=== PATIENT | female | born 1935 | race Caucasian/White ===

== ENCOUNTER 2016-04-28 11:50 | Day surgery (SDC) | payer MEDICARE, MEDICAID ==
[~2016-04-28 11:50] MED LIST: ACET1TAB23 PO; ASPI-612 PO; CALC-15 PO; CLON0.3T PO; CLOP75TA2 PO; DEXL60CA3 PO; DICL100G3 TP; FLUT1DIS28 IH; IV LACTATED RINGERS SOLUTION 1,000 ML BAG MC ONE; LIDOCAINE HCL 1% 20 ML VIAL MC ONE; LORA10TA50 PO; MECL-118 PO; METO-295 PO; MONT10TA25 PO; POLY119P8 PO; PROP20TA7 PO; PROPOFOL 200 MG/20 ML BOTTLE IV ONE; QUET25TA PO; SIMV10TA2 PO; SPIR50TA3 PO; SUCR1ORA PO; VALS160T2 PO; ZOLP5TAB2 PO
[2016-04-28 12:30] LABS: *BILIRUBIN,URIN NEGATIVE (NEGATIVE); *BLOOD, URINE Trace-lysed (NEGATIVE); *CLARITY,URINE CLEAR (CLEAR); *COLOR,URINE YELLOW (YELLOW); *KETONES,URINE NEGATIVE (NEGATIVE); *PROTEIN,URINE NEGATIVE (NEGATIVE); *UROBILINOGEN,URINE 0.2 E.U./dl (NORMAL); LEUKOCYTE ESTERASE ,URINE 1+ (NEGATIVE); NITRITE, URINE NEGATIVE (NEGATIVE); UGLUCOSE NEGATIVE (NEGATIVE)
[2016-04-28 12:36] LABS: ALBUMIN 3.7 g/dL (3.4-5.0); BILIRUBIN,TOTAL 0.3 mg/dL (0.2-1.0); CALCIUM 8.6 mg/dL (8.5-10.1); CREATININE 1.1 mg/dL (0.6-1.3); POTASSIUM 4.7 mmol/L (3.5-5.1); TOTAL PROTEIN, SERUM 7.1 g/dL (6.4-8.2)
[2016-04-28 12:37] LABS: BACTERIA,URINE NONE SEEN /HPF (NONE SEEN); RBC,URINE 0-3 /HPF (0-3); SQUAMOUS EPITHELIAL CELL,UR FEW /HPF (NONE SEEN); WBC,URINE 0-3 /HPF (0-3)
[2016-04-28 12:43] LABS: BASOPHILS % (AUTO) 0.7 % (0.0-2.0); EOSINOPHILS # (AUTO) 0.1 K/uL (0.0-0.7); EOSINOPHILS % (AUTO) 0.9 % (0.0-7.0); HEMATOCRIT 35.1 % (37.0-47.0); HEMOGLOBIN 11.6 g/dL (12.0-16.0); LYMPHOCYTES # (AUTO) 2.2 K/uL (0.8-4.8); LYMPHOCYTES % (AUTO) 33.5 % (20.5-51.5); MEAN CORPUSCULAR HGB CONC 33 g/dL (32.0-37.0); MEAN CORPUSCULAR VOLUME 81.5 fL (81.0-99.0); MONOCYTES # (AUTO) 0.5 K/uL (0.1-1.30); MONOCYTES % (AUTO) 7.6 % (0.0-11.0); NEUTROPHILS # (AUTO) 3.7 K/uL (1.8-8.9); NEUTROPHILS % (AUTO) 57.3 % (38.5-71.5); PLATELET COUNT (AUTO) 393 K/uL (150-450); RED BLOOD CELL COUNT(AUTO) 4.31 MIL/uL (4.20-5.40); RED CELL DISTRIBUTION WIDTH 13.8 % (11.5-14.5); WHITE BLOOD COUNT (AUTO) 6.5 K/uL (4.0-11.2)
== END 2016-04-28 15:35 | disposition home or self-care (01) ==
LOC: DS 11:50
PROVIDERS: ATTEND Internal Medicine Gastroenterology
DX: K22.70 Barrett's esophagus without dysplasia (principal); K44.9 Diaphragmatic hernia without obstruction or gangrene; K21.0 Gastro-esophageal reflux disease with esophagitis; J45.909 Unspecified asthma, uncomplicated; E11.9 Type 2 diabetes mellitus without complications; I10 Essential (primary) hypertension; E78.5 Hyperlipidemia, unspecified; J44.9 Chronic obstructive pulmonary disease, unspecified; D64.9 Anemia, unspecified
CPT/HCPCS: 36415; 43235; 85025; 85730; 93005; A4217; A4663; J3490; J7120

== ENCOUNTER 2016-07-09 15:05 | Inpatient (IN) | payer MEDICARE, MEDICAID ==
[~2016-07-09] VITALS: Ht 142.2 cm; Wt 65.3 kg
[~2016-07-09 15:05] MED LIST changes: -IV LACTATED RINGERS SOLUTION 1,000 ML BAG MC ONE; -LIDOCAINE HCL 1% 20 ML VIAL MC ONE; -PROPOFOL 200 MG/20 ML BOTTLE IV ONE
[2016-07-09 15:57] LABS: BASOPHILS # (AUTO) 0.1 K/uL (0.0-8.0); BASOPHILS % (AUTO) 0.8 % (0.0-2.0); EOSINOPHILS # (AUTO) 0.1 K/uL (0.0-0.7); EOSINOPHILS % (AUTO) 0.9 % (0.0-7.0); HEMATOCRIT 35.1 % (37-47); HEMOGLOBIN 12.1 G/DL (12.0-16.0); LYMPHOCYTES # (AUTO) 1.6 K/UL (0.8-4.8); LYMPHOCYTES % (AUTO) 16.9 % (20.5-51.5); MEAN CORPUSCULAR HEMOGLOBIN 29.1 UUG (27.0-31.0); MEAN CORPUSCULAR HGB CONC 35 g/dL (32.0-37.0); MEAN CORPUSCULAR VOLUME 84.4 FL (81.0-99.0); MONOCYTES # (AUTO) 0.7 K/UL (0.1-1.30); MONOCYTES % (AUTO) 7.3 % (0.0-11.0); NEUTROPHILS % (AUTO) 74.1 % (38.5-71.5); PLATELET COUNT (AUTO) 394 K/UL (150-450); RED BLOOD CELL COUNT(AUTO) 4.16 MIL/UL (4.2-5.4); WHITE BLOOD COUNT (AUTO) 9.5 K/UL (4.0-11.2)
[2016-07-09 16:15] LABS: ALANINE AMINOTRANSFERASE 18 U/L (14-59); ALKALINE PHOSPHATASE 117 U/L (50-136); ASPARTATE AMINOTRANSFERASE 16 U/L (15-37); BILIRUBIN,DIRECT < 0.1 mg/dL (0.0-0.2); BILIRUBIN,TOTAL 0.2 mg/dL (0.2-1.0); CARBON DIOXIDE 25 mmol/L (21-32); CHLORIDE 97 mmol/L (98-107); CREATININE 1.6 mg/dL (0.6-1.3); GLUCOSE 171 mg/dL (74-106); POTASSIUM 5.3 mmol/L (3.5-5.1); TOTAL PROTEIN, SERUM 6.9 g/dL (6.4-8.2); UREA NITROGEN, BLOOD 34 mg/dL (7-18)
[2016-07-09] MEDS ORDERED: FUROSEMIDE 20 MG/2 ML VIAL IV ONE (16:30)
[2016-07-09] MEDS ORDERED: FUROSEMIDE 40 MG/4 ML VIAL ONE (16:38)
[2016-07-09 17:47] VITALS: BP 114/63
--- NOTE | 2016-07-09 17:56 | NUR ---
ADMISSION PROTOCOL FOLLOWED, PT RESTING IN BED, IN NO ACUTE DISTRESS, VS STABLE PAIN 5/10 HEADACHE, IV INTACT. ORIENTED TO ROOM AND CALL LIGHT IN REACH. DR LOBO CALLED, AWAITING ORDERS.
[2016-07-09 19:00] VITALS: BP 105/56
--- NOTE | 2016-07-09 19:45 | NUR ---
RECEIVED PT IN BED AWAKE, ALERT AND ORIENTED, DANISH SPEAKING. ABLE TO MAKE NEEDS KNOWN. NO ACUTE DISTRESS NOTED. NO C/O PAIN AT THIS TIME. DENIES NAUSEA/VOMITING AT THIS MOMENT. MADE COMFORTABLE. EVEN AND NONLABORED BREATHING OBSERVED. IV INTACT AND PATENT. ALL NEEDS ATTENDED AT THIS TIME. WILL CONTINUE TO MONITOR.
--- NOTE | 2016-07-09 21:00 | NUR ---
CALLED MD PENNY, PER TO CONTINUE ALL HOME MEDS. FAXED TO PHARMACY. WILL CONTINUE TO MONITOR. Addendum: 07/09/16 at 2234 by YOHANA PRETTY RN ACTUALLY, MED RECON WAS FAXED TO PHARMACY.
[2016-07-09] MEDS ORDERED: TRAZODONE 100 MG TABLET PO SCH (22:00)
--- NOTE | 2016-07-09 22:05 | NUR ---
TRAZODONE 75MG HS GIVEN PER PT'S REQUEST PRESCRIBED. WILL CONTINUE TO MONITOR.
[2016-07-09] MEDS ORDERED: TRAZODONE 100 MG TABLET ONE (22:12)
[2016-07-10 00:23] VITALS: BP 120/62
[2016-07-10] MEDS ORDERED: TRAZ-144 PO (00:45)
[2016-07-10] MEDS ORDERED: QUET50TA PO (00:50)
[2016-07-10 04:00] VITALS: BP 137/60
[2016-07-10 06:00] LABS: *BILIRUBIN,URIN NEGATIVE (NEGATIVE); *BLOOD, URINE NEGATIVE (NEGATIVE); *CLARITY,URINE CLEAR (CLEAR); *COLOR,URINE YELLOW (YELLOW); *KETONES,URINE NEGATIVE (NEGATIVE); *PROTEIN,URINE NEGATIVE (NEGATIVE); *UROBILINOGEN,URINE 0.2 E.U./dl (NORMAL); LEUKOCYTE ESTERASE ,URINE NEGATIVE (NEGATIVE); NITRITE, URINE NEGATIVE (NEGATIVE); PH,URINE 5.5 (5.0-8.0); UGLUCOSE NEGATIVE (NEGATIVE)
--- NOTE | 2016-07-10 06:07 | NUR ---
PT IN BED RESTING WITH EYES CLOSED, EASILY AWAKENS TO NAME. SLEPT INTERMITTENTLY PER SHIFT. NO ACUTE DISTRESS NOTED. C/O SLIGHT DIZZINESS BUT STATES IS GETTING BETTER, NOT REQUESTING MED AT THIS TIME. NO C/O PAIN. VS STABLE. BRP WITH ASSIST. NO SOB DENIES CHEST PAIN. ALL SAFETY NEEDS MET. ON TELE: SINUS RAPHAEL ON THE MONITOR, HR-[id number]. CALL LIGHT IN REACH. SAFETY AND COMFORT MEASURES PROVIDED. CONTINUE MONITORING.
[2016-07-10 06:23] LABS: BACTERIA,URINE NONE SEEN /HPF (NONE SEEN); RBC,URINE NONE SEEN /HPF (0-3); SQUAMOUS EPITHELIAL CELL,UR FEW /HPF (NONE SEEN); WBC,URINE NONE SEEN /HPF (0-3)
[2016-07-10 07:58] LABS: CARBON DIOXIDE 29 mmol/L (21-32); CHLORIDE 99 mmol/L (98-107); CREATININE 1.5 mg/dL (0.6-1.3); GLUCOSE 125 mg/dL (74-106); POTASSIUM 4.9 mmol/L (3.5-5.1); UREA NITROGEN, BLOOD 40 mg/dL (7-18)
[2016-07-10 08:00] LABS: BASOPHILS % (AUTO) 0.3 % (0.0-2.0); EOSINOPHILS # (AUTO) 0.2 K/uL (0.0-0.7); EOSINOPHILS % (AUTO) 2.8 % (0.0-7.0); HEMATOCRIT 37.2 % (37-47); HEMOGLOBIN 12.9 G/DL (12.0-16.0); LYMPHOCYTES # (AUTO) 2.4 K/UL (0.8-4.8); LYMPHOCYTES % (AUTO) 30.8 % (20.5-51.5); MEAN CORPUSCULAR HEMOGLOBIN 29.3 UUG (27.0-31.0); MEAN CORPUSCULAR HGB CONC 35 g/dL (32.0-37.0); MEAN CORPUSCULAR VOLUME 84.8 FL (81.0-99.0); MONOCYTES # (AUTO) 0.8 K/UL (0.1-1.30); MONOCYTES % (AUTO) 10.6 % (0.0-11.0); NEUTROPHILS # (AUTO) 4.3 K/UL (1.8-8.9); NEUTROPHILS % (AUTO) 55.5 % (38.5-71.5); PLATELET COUNT (AUTO) 400 K/UL (150-450); RED BLOOD CELL COUNT(AUTO) 4.39 MIL/UL (4.2-5.4); WHITE BLOOD COUNT (AUTO) 7.7 K/UL (4.0-11.2)
[2016-07-10] MEDS ORDERED: ERGO500047 PO (09:46)
[2016-07-10] MEDS ORDERED: CLON0.3P TD (09:47)
[2016-07-10] MEDS ORDERED: DICL75TA5 PO (09:48)
[2016-07-10] MEDS ORDERED: METO-295 PO (09:56)
[2016-07-10] MEDS: VALSARTAN 160 MG TABLET PO SCH ×2 (11:45→20:35)
[2016-07-10 12:07] VITALS: BP 101/51
[2016-07-10] MEDS: CLONIDINE HCL 0.3 MG TABLET PO SCH ×2 (13:00→17:00)
[2016-07-10] MEDS: SPIRONOLACTONE 50 MG TABLET PO SCH (14:28)
[2016-07-10] MEDS: ASPIRIN 325 MG TABLET PO SCH (14:31)
[2016-07-10] MEDS: MECLIZINE HCL 25 MG TABLET PO SCH ×3 (14:32→20:32)
[2016-07-10] MEDS: CALCIUM CARB/VITAMIN D 500MG-200UNITS TABLET PO SCH ×2 (14:32→19:01)
[2016-07-10] MEDS: DICLOFENAC 75 MG TABLET.DR PO SCH ×2 (14:32→20:28)
[2016-07-10] MEDS: METOCLOPRAMIDE HCL 10 MG TABLET PO SCH ×2 (14:33→19:01)
[2016-07-10] MEDS: FLUTICASONE/SALMETEROL 250/50 INHALER IH SCH ×2 (14:34→20:39)
[2016-07-10] MEDS: QUETIAPINE FUMARATE 25 MG TABLET PO SCH (14:36)
[2016-07-10 17:30] VITALS: BP 125/69
[2016-07-10] MEDS: SUCRALFATE 1 G/10 ML LIQUID UDC PO SCH (19:00)
[2016-07-10 20:19] VITALS: BP_SYST 87; BP_SYST 98; BP_DIAS 42; BP_DIAS 62
[2016-07-10] MEDS: MONTELUKAST SODIUM 10 MG TABLET PO SCH (20:31)
[2016-07-10] MEDS: TRAZODONE 50 MG TABLET PO SCH (20:31)
[2016-07-10] MEDS: SIMVASTATIN 10 MG TABLET PO SCH (20:31)
[2016-07-10] MEDS ORDERED: TRAZODONE 50 MG TABLET PO SCH (21:00)
--- NOTE | 2016-07-10 23:15 | NUR ---
HANDS OFF REPORT FROM DALILA CASAS.
--- NOTE | 2016-07-10 23:29 | NUR ---
RECEIVED PT IN BED, ABOUT TO USE THE BEDSIDE COMMODE. IN NO ACUTE SIGNS OF DISTRESS, BURKINAN SPEAKING WITH SOME KAZAKH. SAFETY OBSERVED.
[2016-07-11 00:07] VITALS: BP 149/70
[2016-07-11 04:00] VITALS: BP 133/79
[2016-07-11] MEDS: PANTOPRAZOLE SODIUM 40 MG TABLET.DR PO SCH (06:20)
--- NOTE | 2016-07-11 06:25 | NUR ---
ON TELE MONITOR. PT HAD EPISODE OF VTACH, 6 BEATS WITH SOME PVC'S. SINUS RHYTHM AT THIS TIME. RESTING IN BED. NO ACUTE SIGNS OF DISTRESS. PT USED BEDSIDE COMMODE. ALL CARE RENDERED. SAFETY MAINTAIN. CALL LIGHT WITHIN REACH.
[2016-07-11] MEDS: SUCRALFATE 1 G/10 ML LIQUID UDC PO SCH ×3 (06:40→17:26)
[2016-07-11] MEDS ORDERED: HOME MED MISCELLANEOUS PO SCH (09:00)
[2016-07-11] MEDS: ASPIRIN 325 MG TABLET PO SCH (09:08)
[2016-07-11] MEDS: METOCLOPRAMIDE HCL 10 MG TABLET PO SCH ×3 (09:09→17:28)
[2016-07-11] MEDS: MECLIZINE HCL 25 MG TABLET PO SCH ×4 (09:09→20:36)
[2016-07-11] MEDS: QUETIAPINE FUMARATE 25 MG TABLET PO SCH (09:09)
[2016-07-11] MEDS: SPIRONOLACTONE 50 MG TABLET PO SCH (09:09)
[2016-07-11] MEDS: FLUTICASONE/SALMETEROL 250/50 INHALER IH SCH ×2 (09:09→20:35)
[2016-07-11] MEDS: VALSARTAN 160 MG TABLET PO SCH (09:09)
[2016-07-11] MEDS: DICLOFENAC 75 MG TABLET.DR PO SCH ×2 (09:09→20:36)
[2016-07-11] MEDS: CALCIUM CARB/VITAMIN D 500MG-200UNITS TABLET PO SCH ×2 (09:09→17:28)
[2016-07-11] MEDS: CLONIDINE HCL 0.3 MG TABLET PO SCH ×3 (09:10→18:21)
[2016-07-11 12:06] VITALS: BP 142/77
[2016-07-11] MEDS ORDERED: ALBUTEROL SULFATE 2.5 MG/3 ML NEBU NEB PRN (13:30)
[2016-07-11 13:35] LABS: BASOPHILS % (AUTO) 0.5 % (0.0-2.0); EOSINOPHILS # (AUTO) 0.1 K/uL (0.0-0.7); EOSINOPHILS % (AUTO) 1.5 % (0.0-7.0); HEMATOCRIT 35.5 % (37-47); HEMOGLOBIN 12.2 G/DL (12.0-16.0); LYMPHOCYTES # (AUTO) 1.1 K/UL (0.8-4.8); LYMPHOCYTES % (AUTO) 12.9 % (20.5-51.5); MEAN CORPUSCULAR HEMOGLOBIN 28.4 UUG (27.0-31.0); MEAN CORPUSCULAR HGB CONC 34 g/dL (32.0-37.0); MEAN CORPUSCULAR VOLUME 82.7 FL (81.0-99.0); MONOCYTES # (AUTO) 0.5 K/UL (0.1-1.30); MONOCYTES % (AUTO) 5.9 % (0.0-11.0); NEUTROPHILS # (AUTO) 6.6 K/UL (1.8-8.9); NEUTROPHILS % (AUTO) 79.2 % (38.5-71.5); PLATELET COUNT (AUTO) 401 K/UL (150-450); RED BLOOD CELL COUNT(AUTO) 4.29 MIL/UL (4.2-5.4); WHITE BLOOD COUNT (AUTO) 8.3 K/UL (4.0-11.2)
[2016-07-11 13:44] LABS: ALKALINE PHOSPHATASE 113 U/L (50-136); ASPARTATE AMINOTRANSFERASE 17 U/L (15-37); BILIRUBIN,TOTAL 0.6 mg/dL (0.2-1.0); CARBON DIOXIDE 24 mmol/L (21-32); CHLORIDE 94 mmol/L (98-107); CREATININE 2.1 mg/dL (0.6-1.3); GLUCOSE 225 mg/dL (74-106); PHOSPHOROUS 4.7 mg/dL (2.5-4.9); UREA NITROGEN, BLOOD 49 mg/dL (7-18)
[2016-07-11 13:55] LABS: ALANINE AMINOTRANSFERASE < 6 U/L (14-59)
--- NOTE | 2016-07-11 15:26 | NUR ---
CBC AND CMP RESULTS REPORTED TO DR. CHIRINOS. SEE NEW ORDERS.
[2016-07-11] MEDS ORDERED: DEXTROSE 50% 50 ML DISP.SYRIN IV PRN (15:30)
[2016-07-11 15:31] VITALS: BP 96/54
[2016-07-11] MEDS: IV NS 1000 ML 1,000 ML IV PRN (15:40)
[2016-07-11] MEDS: BLOOD SUGAR DIAGNOSTIC 1 EACH STRIP VI SCH ×2 (17:21→20:55)
[2016-07-11] MEDS: INSULIN REGULAR, HUMAN 300 UNIT/3 ML VIAL SQ PRN (17:28)
[2016-07-11] MEDS: ONDANSETRON 4 MG/2 ML VIAL IV PRN (17:32)
--- NOTE | 2016-07-11 18:50 | NUR ---
END OF SHIFT NOTE: PATIENT IN NO ACUTE DISTRESS THROUGHOUT SHIFT. DENIED PAIN. NO N/V AT THIS TIME. RESPIRATIONS EVEN AND UNLABORED. PATIENT CONTINENT OF B+B UN BEDSIDE COMMODE WITH ASSIST. NEEDS MET BY STAFF AND CALL LIGHT AT REACH.
[2016-07-11 19:00] VITALS: BP 113/56
--- NOTE | 2016-07-11 19:00 | NUR ---
PATIENT ALERT SPEAK TUNISIAN NO SOB NO CHEST PAIN NOTED, NO COUGHING NO CONGESTION NOTED, ASSISTED WITH TOILETING ON BEDSIDE COMMODE, NO S/S OF DISTRESS.
[2016-07-11] MEDS: SIMVASTATIN 10 MG TABLET PO SCH (20:36)
[2016-07-11] MEDS: MONTELUKAST SODIUM 10 MG TABLET PO SCH (20:36)
[2016-07-11] MEDS: TRAZODONE 50 MG TABLET PO SCH (20:37)
[2016-07-12 00:29] VITALS: BP 141/66
--- NOTE | 2016-07-12 02:35 | NUR ---
PATIENT COMPLAIN OF ABDOMINAL PAIN/ CONSTIPATION, CALLED DR HAWKINS WITH ORDER.
[2016-07-12] MEDS ORDERED: LACTULOSE 20 G/30 ML LIQUID UDC PO PRN (02:45)
[2016-07-12] MEDS ORDERED: LACTULOSE 20 G/30 ML LIQUID UDC ONE (02:46)
--- NOTE | 2016-07-12 03:02 | NUR ---
LACTULOSE MEDICATION IS EFFECTIVE PATIENT HAD LARGE BOWEL MOVEMENT. NO FURTHER COMPLAIN OF ABDOMINAL PAIN, ABDOMEN SOFT.
[2016-07-12 04:00] VITALS: BP 126/72
[2016-07-12] MEDS: IV NS 1000 ML 1,000 ML IV PRN ×2 (04:37→20:54)
[2016-07-12] MEDS: PANTOPRAZOLE SODIUM 40 MG TABLET.DR PO SCH (06:00)
[2016-07-12] MEDS: SUCRALFATE 1 G/10 ML LIQUID UDC PO SCH ×3 (06:00→16:51)
[2016-07-12] MEDS: BLOOD SUGAR DIAGNOSTIC 1 EACH STRIP VI SCH ×4 (06:00→20:54)
[2016-07-12] MEDS: INSULIN REGULAR, HUMAN 300 UNIT/3 ML VIAL SQ PRN ×3 (06:03→16:53)
--- NOTE | 2016-07-12 07:06 | NUR ---
PATIENT SLEPT MOST OF THE NIGHT, PATIENT ON TELE SINUS RYTHM NO SOB NO CHEST PAIN NOTED, HAD X1BM AGAIN, NO DISTRESS.
--- NOTE | 2016-07-12 07:10 | NUR ---
PATIENT RECEIVED IN ROOM RESTING IN BED. ALERT AWAKE IN NO ACUTE DISTRESS. DENIED PAIN AT THIS TIME. ST ON SALES ADMINISTRATION SPECIALIST HR. 100-109. RESPIRATIONS EVEN AND UNLABORED. CALL LIGHT AT REACH.
--- NOTE | 2016-07-12 07:43 | NUR ---
PATIENT'S HR UP TO 140s WHEN ASSISTED UP TO BESIDE COMMODE, ASYMPTOMATIC, AND COMES BACK TO 107 WHEN IN BED.
[2016-07-12 08:31] LABS: ALANINE AMINOTRANSFERASE 15 U/L (14-59); ALKALINE PHOSPHATASE 120 U/L (50-136); ASPARTATE AMINOTRANSFERASE 17 U/L (15-37); BILIRUBIN,TOTAL 0.6 mg/dL (0.2-1.0); CARBON DIOXIDE 21 mmol/L (21-32); CHLORIDE 95 mmol/L (98-107); GLUCOSE 142 mg/dL (74-106); MAGNESIUM 2.8 mg/dL (1.8-2.4); PHOSPHOROUS 4.8 mg/dL (2.5-4.9); POTASSIUM 5.4 mmol/L (3.5-5.1); TOTAL PROTEIN, SERUM 6.4 g/dL (6.4-8.2); UREA NITROGEN, BLOOD 45 mg/dL (7-18)
[2016-07-12 08:46] LABS: EOSINOPHILS # (AUTO) 0.1 K/uL (0.0-0.7); EOSINOPHILS % (AUTO) 0.4 % (0.0-7.0); HEMATOCRIT 36.2 % (37-47); HEMOGLOBIN 12.4 G/DL (12.0-16.0); LYMPHOCYTES # (AUTO) 0.9 K/UL (0.8-4.8); LYMPHOCYTES % (AUTO) 4.6 % (20.5-51.5); MEAN CORPUSCULAR HEMOGLOBIN 28.7 UUG (27.0-31.0); MEAN CORPUSCULAR HGB CONC 34 g/dL (32.0-37.0); MEAN CORPUSCULAR VOLUME 83.7 FL (81.0-99.0); MONOCYTES % (AUTO) 10.5 % (0.0-11.0); NEUTROPHILS # (AUTO) 15.9 K/UL (1.8-8.9); NEUTROPHILS % (AUTO) 84.5 % (38.5-71.5); PLATELET COUNT (AUTO) 394 K/UL (150-450); RED BLOOD CELL COUNT(AUTO) 4.32 MIL/UL (4.2-5.4); WHITE BLOOD COUNT (AUTO) 18.9 K/UL (4.0-11.2)
[2016-07-12 09:25] LABS: BAND % (MANUAL) 16 % (0-10); EOSINOPHILS % (MANUAL) 1 % (0-8); LYMPHOCYTES % (MANUAL) 5 % (20-40); MONOCYTES % (MANUAL) 9 % (2-10); NEUTROPHILS % (MANUAL) 69 % (42-75)
[2016-07-12] MEDS: SPIRONOLACTONE 50 MG TABLET PO SCH (09:55)
[2016-07-12] MEDS: METOCLOPRAMIDE HCL 10 MG TABLET PO SCH (09:55)
[2016-07-12] MEDS: QUETIAPINE FUMARATE 25 MG TABLET PO SCH (09:55)
[2016-07-12] MEDS: DICLOFENAC 75 MG TABLET.DR PO SCH ×2 (09:55→20:32)
[2016-07-12] MEDS: CLONIDINE HCL 0.3 MG TABLET PO SCH ×3 (09:55→16:57)
[2016-07-12] MEDS: MECLIZINE HCL 25 MG TABLET PO SCH ×4 (09:55→20:32)
[2016-07-12] MEDS: FLUTICASONE/SALMETEROL 250/50 INHALER IH SCH ×2 (09:55→20:32)
[2016-07-12] MEDS: ASPIRIN 325 MG TABLET PO SCH (09:56)
[2016-07-12] MEDS: CALCIUM CARB/VITAMIN D 500MG-200UNITS TABLET PO SCH ×2 (09:56→16:51)
[2016-07-12 11:38] VITALS: BP 147/81
--- NOTE | 2016-07-12 11:58 | NUR ---
PATIENT SEEN BY DR LOBO. SEE NEW ORDERS.
[2016-07-12] MEDS: ERYTHROMYCIN ETHYLSUCC 200 MG/5 ML SUSPENSION 100ML PO SCH ×2 (13:51→22:23)
[2016-07-12 15:24] VITALS: BP 95/56
[2016-07-12 16:58] VITALS: BP 103/43
--- NOTE | 2016-07-12 17:39 | NUR ---
END OF SHIFT NOTE: PATIENT IN NO ACUTE DISTRESS THROUGHOUT SHIFT. DENIED PAIN. VSS. ST 112 ON AUTO BODY PAINTER. RESPIRATIONS EVEN AND UNLABORED. NO COUGH NOTED. DENIED N/V. ASSISTED UP TO COMMODE FOR TOILETING NEEDS. IVF RUNNING. NEEDS MET BY STAFF.
[2016-07-12 19:17] LABS: *BILIRUBIN,URIN NEGATIVE (NEGATIVE); *BLOOD, URINE NEGATIVE (NEGATIVE); *CLARITY,URINE CLEAR (CLEAR); *COLOR,URINE YELLOW (YELLOW); *KETONES,URINE NEGATIVE (NEGATIVE); *PROTEIN,URINE NEGATIVE (NEGATIVE); *UROBILINOGEN,URINE 0.2 E.U./dl (NORMAL); LEUKOCYTE ESTERASE ,URINE NEGATIVE (NEGATIVE); NITRITE, URINE NEGATIVE (NEGATIVE); UGLUCOSE NEGATIVE (NEGATIVE)
[2016-07-12 19:22] LABS: *URINE TOTAL PROTEIN RANDOM 10.6 mg/dL (<150/24HR)
--- NOTE | 2016-07-12 19:30 | NUR ---
AWAKE,ALERT,SPEAKS GREEK,VERBALIZED NEEDS,TELEMETRY SINUS RHYTHM.NO COMPLAINTS RESTING COMFORTABLY.SNACKS GIVEN.
[2016-07-12 19:33] LABS: MUCUS,URINE MODERATE /LPF (0-FEW); SQUAMOUS EPITHELIAL CELL,UR FEW /HPF (NONE SEEN)
[2016-07-12 20:00] VITALS: BP 123/65
[2016-07-12] MEDS: MONTELUKAST SODIUM 10 MG TABLET PO SCH (20:32)
[2016-07-12] MEDS: TRAZODONE 50 MG TABLET PO SCH (20:32)
[2016-07-12] MEDS ORDERED: ERYTHROMYCIN ETHYLSUCC 200 MG/5 ML SUSPENSION 100ML ONE (21:17)
[2016-07-13] VITALS: BP 132/57
[2016-07-13 04:00] VITALS: BP 104/57
[2016-07-13] MEDS: ERYTHROMYCIN ETHYLSUCC 200 MG/5 ML SUSPENSION 100ML PO SCH ×3 (06:23→21:05)
[2016-07-13] MEDS: PANTOPRAZOLE SODIUM 40 MG TABLET.DR PO SCH (06:23)
[2016-07-13 06:39] LABS: EOSINOPHILS # (AUTO) 0.1 K/uL (0.0-0.7); EOSINOPHILS % (AUTO) 1.1 % (0.0-7.0); HEMATOCRIT 33.8 % (37-47); HEMOGLOBIN 11.6 G/DL (12.0-16.0); LYMPHOCYTES # (AUTO) 1.1 K/UL (0.8-4.8); LYMPHOCYTES % (AUTO) 10.7 % (20.5-51.5); MEAN CORPUSCULAR HGB CONC 34 g/dL (32.0-37.0); MEAN CORPUSCULAR VOLUME 84.5 FL (81.0-99.0); MONOCYTES # (AUTO) 1.3 K/UL (0.1-1.30); NEUTROPHILS # (AUTO) 8.1 K/UL (1.8-8.9); NEUTROPHILS % (AUTO) 76.2 % (38.5-71.5); PLATELET COUNT (AUTO) 366 K/UL (150-450); WHITE BLOOD COUNT (AUTO) 10.6 K/UL (4.0-11.2)
[2016-07-13] MEDS: BLOOD SUGAR DIAGNOSTIC 1 EACH STRIP VI SCH ×4 (06:41→20:18)
--- NOTE | 2016-07-13 06:50 | NUR ---
TELEMETRY SINUS TACHY,HAD LOOSE BM,VERBALIZED SHE DIDNT SLEEP,MAKE ROUNDS PATIENTS EYES CLOSED..
[2016-07-13 07:24] LABS: ALANINE AMINOTRANSFERASE 14 U/L (14-59); ALKALINE PHOSPHATASE 108 U/L (50-136); ASPARTATE AMINOTRANSFERASE 15 U/L (15-37); BILIRUBIN,TOTAL 0.5 mg/dL (0.2-1.0); CARBON DIOXIDE 24 mmol/L (21-32); CREATINE KINASE, TOTAL 37 U/L (26-192); CREATININE 1.7 mg/dL (0.6-1.3); GLUCOSE 147 mg/dL (74-106); MAGNESIUM 2.3 mg/dL (1.8-2.4); PHOSPHOROUS 3.4 mg/dL (2.5-4.9); TOTAL PROTEIN, SERUM 5.8 g/dL (6.4-8.2); UREA NITROGEN, BLOOD 35 mg/dL (7-18)
[2016-07-13 07:32] LABS: CHLORIDE 98 mmol/L (98-107)
--- NOTE | 2016-07-13 08:30 | NUR ---
AWAKE COOPERATE WELL NO N/V OR PAIN OR SOB AT THIS TIME EAT BREAKFAST MOD AMT ON FALL /ASPIRATION PRECAUTION CALL GARCIA IN REACH AND BED ALARM ON
[2016-07-13] MEDS: SUCRALFATE 1 G/10 ML LIQUID UDC PO SCH ×3 (08:59→17:08)
[2016-07-13] MEDS: CALCIUM CARB/VITAMIN D 500MG-200UNITS TABLET PO SCH ×2 (08:59→17:08)
[2016-07-13] MEDS: FLUTICASONE/SALMETEROL 250/50 INHALER IH SCH ×2 (08:59→20:19)
[2016-07-13] MEDS: DICLOFENAC 75 MG TABLET.DR PO SCH ×2 (08:59→20:20)
[2016-07-13] MEDS: ASPIRIN 325 MG TABLET PO SCH (08:59)
[2016-07-13] MEDS ORDERED: CLONIDINE HCL 0.3 MG TABLET PO SCH (09:00)
[2016-07-13] MEDS ORDERED: CLONIDINE-TTS 3 PATCH TD SCH (09:00)
[2016-07-13] MEDS: SPIRONOLACTONE 50 MG TABLET PO SCH (09:00)
[2016-07-13] MEDS: CLONIDINE HCL 0.3 MG TABLET PO SCH (09:00)
[2016-07-13] MEDS: QUETIAPINE FUMARATE 25 MG TABLET PO SCH (09:00)
[2016-07-13] MEDS ORDERED: ERGOCALCIFEROL 50,000 UNIT CAPSULE PO SCH (09:00)
[2016-07-13] MEDS: INSULIN REGULAR, HUMAN 300 UNIT/3 ML VIAL SQ PRN ×2 (09:02→17:10)
[2016-07-13] MEDS: MECLIZINE HCL 25 MG TABLET PO SCH ×4 (09:04→20:20)
--- NOTE | 2016-07-13 09:30 | NUR ---
DR LOBO SEE PATIENT AND LAB RESULT THIS AM NEW ORDER IN CHART
[2016-07-13] MEDS ORDERED: FUROSEMIDE 40 MG TABLET PO ONE (10:00)
[2016-07-13] MEDS ORDERED: SODIUM POLYSTYRENE SULFONATE 15 G/60 ML LIQUID UDC PO ONE (10:00)
[2016-07-13] MEDS: ONDANSETRON 4 MG/2 ML VIAL IV PRN ×2 (10:50→17:15)
--- NOTE | 2016-07-13 10:50 | NUR ---
C/O N/V AFTER TAKE KAYXALATE PO MED ZOFRAN PRN GIVEN
[2016-07-13] MEDS: IV NS 1000 ML 1,000 ML IV PRN (10:53)
[2016-07-13 11:30] VITALS: BP 143/88
[2016-07-13] MEDS: CLONIDINE HCL 0.2 MG TABLET PO SCH ×2 (13:00→17:08)
--- NOTE | 2016-07-13 13:00 | NUR ---
DR KOHLER SEE PATIENT AND ORDER FOT ST VEDIO SWALLOWING WITH FULL ESOPHAGRAM TODAY
[2016-07-13 13:18] LABS: CARBON DIOXIDE 26 mmol/L (21-32); CHLORIDE 102 mmol/L (98-107); CREATININE 1.6 mg/dL (0.6-1.3); GLUCOSE 132 mg/dL (74-106); POTASSIUM 5.1 mmol/L (3.5-5.1); UREA NITROGEN, BLOOD 31 mg/dL (7-18)
[2016-07-13] MEDS: DIAZEPAM 2 MG TABLET PO SCH ×2 (14:58→20:21)
--- NOTE | 2016-07-13 15:30 | NUR ---
TO X RAY VIA W/C CONDITION STABLE
[2016-07-13] MEDS ORDERED: BARIUM SULFATE 340 GM ONE (15:32)
[2016-07-13 15:46] VITALS: BP 119/76
--- NOTE | 2016-07-13 17:00 | NUR ---
BACK TO ROOM NO SOB OR PAIN
--- NOTE | 2016-07-13 17:15 | NUR ---
C/O SOME NAUSEA ZOFRAN PRN GIVEN
--- NOTE | 2016-07-13 18:00 | NUR ---
REFUSED TO EAT DINNER ONLY DRINK SODA AND WATER ENC TO COUGHING MORE REGARDING SHE WAS ASPIRATION FROM BARIUM DURING PROCEDURE RADIOLOGIST SUGGESTION
--- NOTE | 2016-07-13 18:15 | NUR ---
HEMODYNAMIC STATUS STABLE NO RESPIRATORY DISTRESS PAIN UNDER CONTROL SAFETY MEASURE PROVIDED CALL LIGHT WITHIN REACH
--- NOTE | 2016-07-13 18:30 | NUR ---
dr byrnes WAS CALL REGARDING ESOPHAGRAM X RAY RESULT TODAY DR FRANCIE WEINSTEIN RESULT OF ESOPHAGRAM INFORM AND ORDER TO KEEP HER NPO UNTIL SEE BY MD IN AM
--- NOTE | 2016-07-13 19:00 | NUR ---
PATIENT ALERT ORIENTED NO COMPLAIN OF PAIN NO SOB NO CHEST PAIN NOTED, REMAIN NPO EXCEPT MEDICATIONS. NO S/S OF DISTRESS.
[2016-07-13] MEDS: TRAZODONE 50 MG TABLET PO SCH (20:20)
[2016-07-13] MEDS: MONTELUKAST SODIUM 10 MG TABLET PO SCH (20:20)
[2016-07-13 20:21] VITALS: BP 147/78
[2016-07-14] MEDS: IV NS 1000 ML 1,000 ML IV PRN ×2 (04:25→20:36)
[2016-07-14] MEDS: ERYTHROMYCIN ETHYLSUCC 200 MG/5 ML SUSPENSION 100ML PO SCH ×3 (05:47→21:28)
[2016-07-14] MEDS: BLOOD SUGAR DIAGNOSTIC 1 EACH STRIP VI SCH ×4 (05:54→20:36)
[2016-07-14] MEDS: PANTOPRAZOLE SODIUM 40 MG TABLET.DR PO SCH (06:01)
[2016-07-14] MEDS: SUCRALFATE 1 G/10 ML LIQUID UDC PO SCH ×3 (06:01→17:13)
[2016-07-14 06:10] VITALS: BP 158/80
--- NOTE | 2016-07-14 06:45 | NUR ---
PATIENT AWAKE NO SOB NO CHEST PAIN NOTED, CONT NPO EXCEPT PO MEDS, NO CHOKING NO COUGHING NOTED, CONT TO MONITOR.
[2016-07-14 06:46] LABS: BASOPHILS % (AUTO) 0.4 % (0.0-2.0); EOSINOPHILS # (AUTO) 0.2 K/uL (0.0-0.7); EOSINOPHILS % (AUTO) 2.4 % (0.0-7.0); HEMATOCRIT 28.8 % (37-47); HEMOGLOBIN 10.1 G/DL (12.0-16.0); LYMPHOCYTES # (AUTO) 1.6 K/UL (0.8-4.8); MEAN CORPUSCULAR HEMOGLOBIN 29.6 UUG (27.0-31.0); MEAN CORPUSCULAR HGB CONC 35 g/dL (32.0-37.0); MEAN CORPUSCULAR VOLUME 84.3 FL (81.0-99.0); MONOCYTES # (AUTO) 0.9 K/UL (0.1-1.30); MONOCYTES % (AUTO) 10.2 % (0.0-11.0); NEUTROPHILS # (AUTO) 6.1 K/UL (1.8-8.9); PLATELET COUNT (AUTO) 337 K/UL (150-450); RED BLOOD CELL COUNT(AUTO) 3.42 MIL/UL (4.2-5.4); WHITE BLOOD COUNT (AUTO) 8.8 K/UL (4.0-11.2)
[2016-07-14 06:59] LABS: ALANINE AMINOTRANSFERASE 12 U/L (14-59); ALKALINE PHOSPHATASE 99 U/L (50-136); ASPARTATE AMINOTRANSFERASE 15 U/L (15-37); BILIRUBIN,TOTAL 0.4 mg/dL (0.2-1.0); CARBON DIOXIDE 28 mmol/L (21-32); CHLORIDE 98 mmol/L (98-107); CREATININE 1.5 mg/dL (0.6-1.3); GLUCOSE 114 mg/dL (74-106); MAGNESIUM 1.8 mg/dL (1.8-2.4); POTASSIUM 4.8 mmol/L (3.5-5.1); TOTAL PROTEIN, SERUM 5.8 g/dL (6.4-8.2); UREA NITROGEN, BLOOD 23 mg/dL (7-18)
[2016-07-14 07:07] LABS: A/G RATIO 1.2 (0.7-1.7); ALBUMIN 2.8 g/dL (2.9-4.4); ALPHA-1-GLOBULIN 0.3 g/dL (0.0-0.4); ALPHA-2-GLOBULIN 0.7 g/dL (0.4-1.0); BETA GLOBULIN 0.8 g/dL (0.7-1.3); GAMMA GLOBULIN 0.5 g/dL (0.4-1.8); GLOBULIN, TOTAL 2.3 g/dL (2.2-3.9); M-SPIKE Not Observed g/dL (Not Observed)
--- NOTE | 2016-07-14 08:00 | NUR ---
Pt Setswana speaking but able to communicate needs speaking in "very little yakut." Discussed plan of care for today re: NPO status and for her not to drink anything only medications, fall precautions - call nursing for assistance going to bathroom, and notify nursing of any discomfort. Pt continent of b/b. Pt is for bedside swallow eval and video swallow eval. Awaiting for .
[2016-07-14] MEDS: QUETIAPINE FUMARATE 25 MG TABLET PO SCH (08:31)
[2016-07-14] MEDS: CALCIUM CARB/VITAMIN D 500MG-200UNITS TABLET PO SCH ×2 (08:31→17:13)
[2016-07-14] MEDS: ASPIRIN 325 MG TABLET PO SCH (08:31)
[2016-07-14] MEDS: CLONIDINE HCL 0.2 MG TABLET PO SCH ×3 (08:31→17:13)
[2016-07-14] MEDS: DIAZEPAM 2 MG TABLET PO SCH ×2 (08:32→20:40)
[2016-07-14] MEDS: MECLIZINE HCL 25 MG TABLET PO SCH ×4 (08:32→20:39)
[2016-07-14] MEDS: DICLOFENAC 75 MG TABLET.DR PO SCH ×2 (08:32→20:39)
[2016-07-14] MEDS: FLUTICASONE/SALMETEROL 250/50 INHALER IH SCH ×2 (08:33→20:40)
[2016-07-14 11:54] VITALS: BP 143/73
--- NOTE | 2016-07-14 12:00 | NUR ---
Dr byrnes here to see pt. Pt tolerated physical therapy earlier and walked on the hallway.
[2016-07-14 15:37] VITALS: BP 139/76
--- NOTE | 2016-07-14 16:05 | NUR ---
PT picked up by transport for video swallow eval. Awaiting recommendations from .
[2016-07-14] MEDS: INSULIN REGULAR, HUMAN 300 UNIT/3 ML VIAL SQ PRN (17:16)
[2016-07-14 19:00] VITALS: BP 133/76
--- NOTE | 2016-07-14 19:00 | NUR ---
Received recommendations of ST. PT pass video swallow. Discussed with pt swallowing precautions and verbalized understanding. Pt is in no acute distress. Call light is within reach.
[2016-07-14] MEDS: TRAZODONE 50 MG TABLET PO SCH (20:39)
[2016-07-14] MEDS: MONTELUKAST SODIUM 10 MG TABLET PO SCH (20:39)
[2016-07-15 04:00] VITALS: BP 150/83
--- NOTE | 2016-07-15 05:29 | NUR ---
SLEEPING AT THIS TIME, IN NO ACUTE SIGNS OF DISTRESS. ON ASPIRATION PRECAUTION. SAFETY MAINTAINED. DENIES PAIN. CALL LIGHT WITHIN REACH.
[2016-07-15] MEDS: PANTOPRAZOLE SODIUM 40 MG TABLET.DR PO SCH (06:38)
[2016-07-15] MEDS: ERYTHROMYCIN ETHYLSUCC 200 MG/5 ML SUSPENSION 100ML PO SCH ×3 (06:38→21:00)
[2016-07-15] MEDS: SUCRALFATE 1 G/10 ML LIQUID UDC PO SCH ×3 (06:38→17:18)
[2016-07-15 06:43] LABS: BASOPHILS # (AUTO) 0.1 K/uL (0.0-8.0); BASOPHILS % (AUTO) 0.9 % (0.0-2.0); EOSINOPHILS # (AUTO) 0.3 K/uL (0.0-0.7); EOSINOPHILS % (AUTO) 3.5 % (0.0-7.0); HEMATOCRIT 29.1 % (37-47); HEMOGLOBIN 10.1 G/DL (12.0-16.0); LYMPHOCYTES # (AUTO) 1.4 K/UL (0.8-4.8); LYMPHOCYTES % (AUTO) 18.4 % (20.5-51.5); MEAN CORPUSCULAR HEMOGLOBIN 29.4 UUG (27.0-31.0); MEAN CORPUSCULAR HGB CONC 35 g/dL (32.0-37.0); MEAN CORPUSCULAR VOLUME 84.8 FL (81.0-99.0); MONOCYTES # (AUTO) 0.5 K/UL (0.1-1.30); MONOCYTES % (AUTO) 6.7 % (0.0-11.0); NEUTROPHILS # (AUTO) 5.1 K/UL (1.8-8.9); NEUTROPHILS % (AUTO) 70.5 % (38.5-71.5); PLATELET COUNT (AUTO) 370 K/UL (150-450); RED BLOOD CELL COUNT(AUTO) 3.44 MIL/UL (4.2-5.4); WHITE BLOOD COUNT (AUTO) 7.4 K/UL (4.0-11.2)
[2016-07-15] MEDS: BLOOD SUGAR DIAGNOSTIC 1 EACH STRIP VI SCH ×4 (06:49→20:56)
[2016-07-15 07:13] LABS: ALANINE AMINOTRANSFERASE 19 U/L (14-59); ALKALINE PHOSPHATASE 95 U/L (50-136); ASPARTATE AMINOTRANSFERASE 23 U/L (15-37); BILIRUBIN,TOTAL 0.3 mg/dL (0.2-1.0); CARBON DIOXIDE 27 mmol/L (21-32); CHLORIDE 100 mmol/L (98-107); CREATININE 1.3 mg/dL (0.6-1.3); GLUCOSE 115 mg/dL (74-106); MAGNESIUM 1.8 mg/dL (1.8-2.4); PHOSPHOROUS 3.6 mg/dL (2.5-4.9); TOTAL PROTEIN, SERUM 5.8 g/dL (6.4-8.2); UREA NITROGEN, BLOOD 13 mg/dL (7-18)
[2016-07-15] MEDS: CLONIDINE HCL 0.2 MG TABLET PO SCH ×3 (08:26→17:17)
[2016-07-15] MEDS: DICLOFENAC 75 MG TABLET.DR PO SCH ×2 (08:26→20:50)
[2016-07-15] MEDS: FLUTICASONE/SALMETEROL 250/50 INHALER IH SCH ×2 (08:26→20:48)
[2016-07-15] MEDS: QUETIAPINE FUMARATE 25 MG TABLET PO SCH (08:26)
[2016-07-15] MEDS: ASPIRIN 325 MG TABLET PO SCH (08:26)
[2016-07-15] MEDS: DIAZEPAM 2 MG TABLET PO SCH ×2 (08:26→20:50)
[2016-07-15] MEDS: MECLIZINE HCL 25 MG TABLET PO SCH ×4 (08:26→20:49)
[2016-07-15] MEDS: CALCIUM CARB/VITAMIN D 500MG-200UNITS TABLET PO SCH ×2 (08:26→17:17)
[2016-07-15] MEDS: INSULIN REGULAR, HUMAN 300 UNIT/3 ML VIAL SQ PRN ×2 (11:41→17:17)
[2016-07-15 12:00] VITALS: BP 125/69
[2016-07-15 15:56] VITALS: BP 119/63
--- NOTE | 2016-07-15 19:10 | NUR ---
PATIENT ALERT ORIENTED, NO SOB NO CHEST PAIN NOTED, ASSISTED WITH TOILETING, CONT TO MONITOR.
[2016-07-15 20:00] VITALS: BP 125/66
[2016-07-15] MEDS: TRAZODONE 50 MG TABLET PO SCH (20:49)
[2016-07-15] MEDS: MONTELUKAST SODIUM 10 MG TABLET PO SCH (20:49)
[2016-07-16] MEDS: IV NS 1000 ML 1,000 ML IV PRN ×2 (00:51→22:57)
[2016-07-16 04:44] VITALS: BP 156/80
[2016-07-16] MEDS: ERYTHROMYCIN ETHYLSUCC 200 MG/5 ML SUSPENSION 100ML PO SCH ×3 (05:28→22:55)
[2016-07-16] MEDS: BLOOD SUGAR DIAGNOSTIC 1 EACH STRIP VI SCH ×4 (05:29→20:34)
--- NOTE | 2016-07-16 06:10 | NUR ---
PLACE A CALL TO WHITNEY ESPAÑA DAUGHTER TO OBTAIN CONSENT, LEFT MESSAGE BUT NO RESPONSE. CONT TO CALL.
[2016-07-16] MEDS: PANTOPRAZOLE SODIUM 40 MG TABLET.DR PO SCH (07:04)
--- NOTE | 2016-07-16 07:10 | NUR ---
PLACE A CALL TO DAUGHTER WHITNEY ESPAÑA LEFT MESSAGE TO OBTAIN CONSENT FOR EGD, BUT NOT RESPONSE. PATIENT ALERT ORIENTED, SPEAK UGANDAN , THROUGH PSYCHOLOGIST PRIVATE PRACTICE, EXPLAINED THE PROCEDURE, AND AGREED TO DO PROCEDURE. NOTIFY INCOMING NURSE THAT MESSAGE WAS LEFT TO DAUGHTER.
--- NOTE | 2016-07-16 07:19 | NUR ---
CONSENT SIGNED THIS AM, OFF FLOOR FOR EGD
[2016-07-16 07:29] LABS: BASOPHILS % (AUTO) 0.4 % (0.0-2.0); EOSINOPHILS # (AUTO) 0.4 K/uL (0.0-0.7); HEMATOCRIT 29.2 % (37-47); HEMOGLOBIN 9.9 G/DL (12.0-16.0); LYMPHOCYTES # (AUTO) 1.7 K/UL (0.8-4.8); LYMPHOCYTES % (AUTO) 19.9 % (20.5-51.5); MEAN CORPUSCULAR HEMOGLOBIN 29.1 UUG (27.0-31.0); MEAN CORPUSCULAR HGB CONC 34 g/dL (32.0-37.0); MEAN CORPUSCULAR VOLUME 85.9 FL (81.0-99.0); MONOCYTES # (AUTO) 0.7 K/UL (0.1-1.30); MONOCYTES % (AUTO) 7.7 % (0.0-11.0); NEUTROPHILS # (AUTO) 5.8 K/UL (1.8-8.9); PLATELET COUNT (AUTO) 353 K/UL (150-450); WHITE BLOOD COUNT (AUTO) 8.6 K/UL (4.0-11.2)
[2016-07-16 07:49] LABS: ALANINE AMINOTRANSFERASE 28 U/L (14-59); ALKALINE PHOSPHATASE 89 U/L (50-136); ASPARTATE AMINOTRANSFERASE 30 U/L (15-37); BILIRUBIN,TOTAL 0.3 mg/dL (0.2-1.0); CARBON DIOXIDE 25 mmol/L (21-32); CHLORIDE 101 mmol/L (98-107); CREATININE 1.2 mg/dL (0.6-1.3); GLUCOSE 113 mg/dL (74-106); MAGNESIUM 1.6 mg/dL (1.8-2.4); PHOSPHOROUS 3.7 mg/dL (2.5-4.9); POTASSIUM 4.9 mmol/L (3.5-5.1); TOTAL PROTEIN, SERUM 5.6 g/dL (6.4-8.2); UREA NITROGEN, BLOOD 18 mg/dL (7-18)
[2016-07-16] MEDS ORDERED: IPRATROPIUM BROMIDE 0.5 MG/2.5 ML NEBU ONE (08:19)
[2016-07-16] MEDS ORDERED: ALBUTEROL SULFATE 2.5 MG/3 ML NEBU ONE (08:19)
--- NOTE | 2016-07-16 08:30 | NUR ---
RT WAS CALLED AT THIS IN RECOVERY TO GIVE PT TX. PT TX ORDER WAS A WRITTEN ORDER AND WAS NOT IN SYSTEM RN AWARE . PT WAS GIVEN ALBUTEROL 2.5MG AND ATROVENT 0.5MG PT TOLERATED TX WELL HAS NO DISTRESS NOTED. WILL CONTINUE TO MONITOR PT. PT POST TX WAS PLACE ON FL AND WAS SENT TO SECOND FLOOR.
[2016-07-16 08:55] VITALS: BP 155/89
--- NOTE | 2016-07-16 08:55 | NUR ---
PT BACK FROM SURGERY, IV WAS CHANGED IN OR RIGHT HAND G20. VS STABLE, WILL CONTINUE TO MONITOR
[2016-07-16] MEDS: SUCRALFATE 1 G/10 ML LIQUID UDC PO SCH ×3 (09:02→16:38)
[2016-07-16] MEDS: DICLOFENAC 75 MG TABLET.DR PO SCH ×2 (09:52→20:22)
[2016-07-16] MEDS: CALCIUM CARB/VITAMIN D 500MG-200UNITS TABLET PO SCH ×2 (09:52→17:21)
[2016-07-16] MEDS: ASPIRIN 325 MG TABLET PO SCH (09:52)
[2016-07-16] MEDS: DIAZEPAM 2 MG TABLET PO SCH ×2 (09:52→20:23)
[2016-07-16] MEDS: QUETIAPINE FUMARATE 25 MG TABLET PO SCH (09:53)
[2016-07-16] MEDS: CLONIDINE HCL 0.2 MG TABLET PO SCH ×3 (09:53→17:22)
[2016-07-16] MEDS: MECLIZINE HCL 25 MG TABLET PO SCH ×4 (09:53→20:23)
[2016-07-16] MEDS: FLUTICASONE/SALMETEROL 250/50 INHALER IH SCH ×2 (09:59→20:22)
[2016-07-16 11:35] VITALS: BP 121/79
[2016-07-16 11:41] VITALS: BP 123/63
[2016-07-16] MEDS: INSULIN REGULAR, HUMAN 300 UNIT/3 ML VIAL SQ PRN ×2 (11:56→20:34)
[2016-07-16] MEDS: VALSARTAN 160 MG TABLET PO SCH (11:58)
[2016-07-16] MEDS ORDERED: IV NORMAL SALINE 1000 ML BAG IV ONE (12:15)
[2016-07-16] MEDS ORDERED: PROPOFOL 200 MG/20 ML BOTTLE IV ONE (12:15)
[2016-07-16] MEDS ORDERED: LIDOCAINE HCL 1% 20 ML VIAL MC ONE (12:15)
[2016-07-16] MEDS: MAGNESIUM SULFATE/D5W 100 ML IV SCH ×2 (15:57→17:21)
[2016-07-16 16:08] VITALS: BP 125/68
--- NOTE | 2016-07-16 18:28 | NUR ---
pt sleeping in chair, awoken and placed back in bed, in no acute distress, iv intact and patent, all safety and comfort measures maintained throughout shift, call light in reach
--- NOTE | 2016-07-16 19:10 | NUR ---
PATIENT AWAKE VERBALLY RESPONSIVE, NO SOB NO CHEST PAIN NOTED, ASSISTED WITH TOILETING, TOLERATE CURRENT TEXTURED DIET, NO COUGHING NO CHOKING NOTED. CONT TO MONITOR.
[2016-07-16 20:00] VITALS: BP 137/80
[2016-07-16] MEDS: MONTELUKAST SODIUM 10 MG TABLET PO SCH (20:22)
[2016-07-16] MEDS: TRAZODONE 50 MG TABLET PO SCH (20:23)
[2016-07-17 04:54] VITALS: BP 153/77
[2016-07-17] MEDS: ERYTHROMYCIN ETHYLSUCC 200 MG/5 ML SUSPENSION 100ML PO SCH ×2 (05:39→13:17)
[2016-07-17] MEDS: BLOOD SUGAR DIAGNOSTIC 1 EACH STRIP VI SCH ×2 (05:44→11:06)
--- NOTE | 2016-07-17 06:54 | NUR ---
PATIENT SLEPT MOST OF THE NIGHT NO SOB NO CHEST PAIN, ASSISTED WITH TOILETING, NO COUGHING NOR CHOKING NOTED, WHEN GIVEN PO MEDS NO S/ OF DISTRESS.
[2016-07-17] MEDS: PANTOPRAZOLE SODIUM 40 MG TABLET.DR PO SCH (07:06)
[2016-07-17] MEDS: SUCRALFATE 1 G/10 ML LIQUID UDC PO SCH ×2 (07:40→11:21)
[2016-07-17] MEDS: CLONIDINE HCL 0.2 MG TABLET PO SCH ×2 (08:05→12:29)
[2016-07-17] MEDS: CALCIUM CARB/VITAMIN D 500MG-200UNITS TABLET PO SCH (08:05)
[2016-07-17] MEDS: DICLOFENAC 75 MG TABLET.DR PO SCH (08:05)
[2016-07-17] MEDS: MECLIZINE HCL 25 MG TABLET PO SCH ×2 (08:05→12:29)
[2016-07-17] MEDS: DIAZEPAM 2 MG TABLET PO SCH (08:05)
[2016-07-17] MEDS: VALSARTAN 160 MG TABLET PO SCH (08:06)
[2016-07-17] MEDS: QUETIAPINE FUMARATE 25 MG TABLET PO SCH (08:06)
[2016-07-17] MEDS ORDERED: Erythromycin Ethylsuccinate PO (08:23)
[2016-07-17] MEDS: FLUTICASONE/SALMETEROL 250/50 INHALER IH SCH (08:26)
[2016-07-17] MEDS ORDERED: MAGNESIUM SULFATE 2 GM in IV DEXTROSE 5% 100 ML IV ONE (08:30)
[2016-07-17] MEDS ORDERED: ASPIRIN 81 MG TAB.CHEW PO SCH (09:00)
[2016-07-17 09:35] LABS: BASOPHILS # (AUTO) 0.1 K/uL (0.0-8.0); BASOPHILS % (AUTO) 0.7 % (0.0-2.0); EOSINOPHILS # (AUTO) 0.4 K/uL (0.0-0.7); EOSINOPHILS % (AUTO) 5.6 % (0.0-7.0); HEMOGLOBIN 11.1 G/DL (12.0-16.0); LYMPHOCYTES # (AUTO) 1.4 K/UL (0.8-4.8); LYMPHOCYTES % (AUTO) 18.1 % (20.5-51.5); MEAN CORPUSCULAR HEMOGLOBIN 28.9 UUG (27.0-31.0); MEAN CORPUSCULAR HGB CONC 34 g/dL (32.0-37.0); MEAN CORPUSCULAR VOLUME 84.7 FL (81.0-99.0); MONOCYTES # (AUTO) 0.6 K/UL (0.1-1.30); MONOCYTES % (AUTO) 7.5 % (0.0-11.0); NEUTROPHILS # (AUTO) 5.4 K/UL (1.8-8.9); NEUTROPHILS % (AUTO) 68.1 % (38.5-71.5); PLATELET COUNT (AUTO) 375 K/UL (150-450); WHITE BLOOD COUNT (AUTO) 7.9 K/UL (4.0-11.2)
[2016-07-17 09:46] LABS: HEMATOCRIT 32.6 % (37-47); RED BLOOD CELL COUNT(AUTO) 3.85 MIL/UL (4.2-5.4)
[2016-07-17 09:51] LABS: ALANINE AMINOTRANSFERASE 37 U/L (14-59); ALKALINE PHOSPHATASE 97 U/L (50-136); ASPARTATE AMINOTRANSFERASE 32 U/L (15-37); BILIRUBIN,TOTAL 0.3 mg/dL (0.2-1.0); CARBON DIOXIDE 27 mmol/L (21-32); CHLORIDE 99 mmol/L (98-107); CREATININE 1.2 mg/dL (0.6-1.3); GLUCOSE 142 mg/dL (74-106); MAGNESIUM 1.9 mg/dL (1.8-2.4); PHOSPHOROUS 3.4 mg/dL (2.5-4.9); POTASSIUM 4.9 mmol/L (3.5-5.1); TOTAL PROTEIN, SERUM 6.5 g/dL (6.4-8.2); UREA NITROGEN, BLOOD 16 mg/dL (7-18)
[2016-07-17 10:13] LABS: BAND % (MANUAL) 1 % (0-10); EOSINOPHILS % (MANUAL) 7 % (0-8); LYMPHOCYTES % (MANUAL) 16 % (20-40); MONOCYTES % (MANUAL) 14 % (2-10); NEUTROPHILS % (MANUAL) 62 % (42-75)
[2016-07-17 11:23] VITALS: BP 148/85
[2016-07-17] MEDS: INSULIN REGULAR, HUMAN 300 UNIT/3 ML VIAL SQ PRN (11:26)
[2016-07-17 12:29] VITALS: BP 148/85
--- NOTE | 2016-07-17 14:16 | NUR ---
d/c orders received noted and carried out.d/c instructions and educations given to the pt.pt seen by stephanie barrett per md orders,pt left the facility via private car in stable condition with her daughter.
== END 2016-07-17 14:15 | DRG 291 ==
LOC: ER 15:07 → TELE 16:59 → MED 07-13 12:15
PROVIDERS: ADMIT Internal Medicine; ATTEND Internal Medicine
PROC: 0DB78ZX Excision of Stomach, Pylorus, Via Natural or Artificial Opening Endoscopic, Diagnostic (ICD-10-PCS; 2016-07-16)
PROC: 0DB38ZX Excision of Lower Esophagus, Via Natural or Artificial Opening Endoscopic, Diagnostic (ICD-10-PCS; principal; 2016-07-16 07:30)
DX: I13.0 Hypertensive heart and chronic kidney disease with heart failure and stage 1 through stage 4 chronic kidney disease, or unspecified chronic kidney disease (principal); I50.33 Acute on chronic diastolic (congestive) heart failure; J96.90 Respiratory failure, unspecified, unspecified whether with hypoxia or hypercapnia; R53.2 Functional quadriplegia; J96.91 Respiratory failure, unspecified with hypoxia; J98.11 Atelectasis; J44.1 Chronic obstructive pulmonary disease with (acute) exacerbation; N17.9 Acute kidney failure, unspecified; E87.1 Hypo-osmolality and hyponatremia; J45.909 Unspecified asthma, uncomplicated; K21.9 Gastro-esophageal reflux disease without esophagitis; E78.5 Hyperlipidemia, unspecified; N18.9 Chronic kidney disease, unspecified; E11.22 Type 2 diabetes mellitus with diabetic chronic kidney disease; E11.43 Type 2 diabetes mellitus with diabetic autonomic (poly)neuropathy; Z88.0 Allergy status to penicillin; Z79.82 Long term (current) use of aspirin; M19.90 Unspecified osteoarthritis, unspecified site; Z79.51 Long term (current) use of inhaled steroids; G30.9 Alzheimer's disease, unspecified; F02.80 Dementia in other diseases classified elsewhere, unspecified severity, without behavioral disturbance, psychotic disturbance, mood disturbance, and anxiety; E87.5 Hyperkalemia; D64.9 Anemia, unspecified; K44.9 Diaphragmatic hernia without obstruction or gangrene; K22.70 Barrett's esophagus without dysplasia; Z98.890 Other specified postprocedural states; K29.00 Acute gastritis without bleeding; K22.0 Achalasia of cardia; H81.399 Other peripheral vertigo, unspecified ear; E27.8 Other specified disorders of adrenal gland; Z79.899 Other long term (current) drug therapy; I99.8 Other disorder of circulatory system; Z86.19 Personal history of other infectious and parasitic diseases; K22.8 Other specified diseases of esophagus
CPT/HCPCS: 36415; 43235; 70030-TC; 70450; 71010; 74220; 74230; 76770; 83605; 83735; 83970; 84100; 84155; 84156; 84165; 84300; 85025; 85730; 87040; 87086; 92526; 92610; 92611; 93005; 93307; 93880; 94664; 97116; 97161; 97530; A4217; A4663; J1815; J1940; J2405; J3475; J3490; J3590; J7030; J7060; J8597; Q9967

== ENCOUNTER 2016-08-22 13:44 | Inpatient (IN) | payer MEDICARE, MEDICAID ==
[~2016-08-22] VITALS: Ht 147.3 cm; Wt 59.0 kg
[~2016-08-22 13:44] MED LIST changes: -ACET1TAB23 PO; +CLON0.3P TD; -CLOP75TA2 PO; -DICL100G3 TP; +ERGO500014 PO; +Erythromycin Ethylsuccinate PO; -LORA10TA50 PO; -POLY119P8 PO; -PROP20TA7 PO; -QUET25TA PO; +QUET50TA PO; +TRAZ-144 PO; -ZOLP5TAB2 PO
[2016-08-22] MEDS ORDERED: IV NORMAL SALINE 500 ML BAG IV ONE (14:15)
[2016-08-22] MEDS ORDERED: ACET1TAB12 PO (14:19)
[2016-08-22 14:35] LABS: BASOPHILS # (AUTO) 0.2 K/uL (0.0-8.0); BASOPHILS % (AUTO) 2.1 % (0.0-2.0); EOSINOPHILS # (AUTO) 0.1 K/uL (0.0-0.7); EOSINOPHILS % (AUTO) 0.7 % (0.0-7.0); HEMATOCRIT 34.7 % (37-47); HEMOGLOBIN 11.4 G/DL (12.0-16.0); LYMPHOCYTES # (AUTO) 1.5 K/UL (0.8-4.8); LYMPHOCYTES % (AUTO) 13.2 % (20.5-51.5); MEAN CORPUSCULAR HGB CONC 33 g/dL (32.0-37.0); MONOCYTES % (AUTO) 8.6 % (0.0-11.0); NEUTROPHILS # (AUTO) 8.7 K/UL (1.8-8.9); NEUTROPHILS % (AUTO) 75.4 % (38.5-71.5); PLATELET COUNT (AUTO) 492 K/UL (150-450); RED BLOOD CELL COUNT(AUTO) 4.09 MIL/UL (4.2-5.4); WHITE BLOOD COUNT (AUTO) 11.5 K/UL (4.0-11.2)
[2016-08-22 14:40] LABS: CARBON DIOXIDE 22 mmol/L (21-32); CHLORIDE 91 mmol/L (98-107); CREATININE 1.4 mg/dL (0.6-1.3); GLUCOSE 135 mg/dL (74-106); POTASSIUM 5.3 mmol/L (3.5-5.1); UREA NITROGEN, BLOOD 29 mg/dL (7-18)
[2016-08-22 14:46] LABS: ALANINE AMINOTRANSFERASE 17 U/L (14-59); ALKALINE PHOSPHATASE 97 U/L (50-136); ASPARTATE AMINOTRANSFERASE 14 U/L (15-37); BILIRUBIN,DIRECT 0.1 mg/dL (0.0-0.2); BILIRUBIN,TOTAL 0.4 mg/dL (0.2-1.0); LIPASE 178 U/L (73-393); TOTAL PROTEIN, SERUM 6.7 g/dL (6.4-8.2)
[2016-08-22 16:12] VITALS: BP 130/61
[2016-08-22] MEDS: SUCRALFATE 1 G/10 ML LIQUID UDC PO SCH (18:30)
[2016-08-22] MEDS: MONTELUKAST SODIUM 10 MG TABLET PO SCH (18:31)
[2016-08-22] MEDS: CALCIUM CARB/VITAMIN D 500MG-200UNITS TABLET PO SCH (18:31)
[2016-08-22] MEDS: MECLIZINE HCL 25 MG TABLET PO SCH ×2 (18:31→20:38)
[2016-08-22] MEDS: CLONIDINE HCL 0.3 MG TABLET PO SCH ×2 (18:32→22:07)
[2016-08-22] MEDS: TRAZODONE 50 MG TABLET PO SCH (20:37)
[2016-08-22] MEDS: SIMVASTATIN 10 MG TABLET PO SCH (20:38)
[2016-08-22] MEDS: VALSARTAN 160 MG TABLET PO SCH (20:39)
[2016-08-22 20:50] VITALS: BP 107/58
[2016-08-22] MEDS ORDERED: VALSARTAN 160 MG TABLET PO SCH (21:00)
[2016-08-23 00:22] VITALS: BP 122/52
[2016-08-23 04:54] VITALS: BP 107/52
[2016-08-23] MEDS: PANTOPRAZOLE SODIUM 40 MG TABLET.DR PO SCH (05:20)
[2016-08-23] MEDS: CLONIDINE HCL 0.3 MG TABLET PO SCH (05:20)
[2016-08-23 07:19] LABS: *BILIRUBIN,URIN NEGATIVE (NEGATIVE); *BLOOD, URINE Trace-intact (NEGATIVE); *CLARITY,URINE CLOUDY (CLEAR); *COLOR,URINE YELLOW (YELLOW); *KETONES,URINE NEGATIVE (NEGATIVE); *PROTEIN,URINE NEGATIVE (NEGATIVE); *UROBILINOGEN,URINE 0.2 E.U./dl (NORMAL); LEUKOCYTE ESTERASE ,URINE 3+ (NEGATIVE); NITRITE, URINE POSITIVE (NEGATIVE); UGLUCOSE NEGATIVE (NEGATIVE)
[2016-08-23 07:36] LABS: BACTERIA,URINE MANY /HPF (NONE SEEN); SQUAMOUS EPITHELIAL CELL,UR FEW /HPF (NONE SEEN); WBC,URINE TNTC /HPF (0-3)
[2016-08-23 07:59] LABS: CARBON DIOXIDE 26 mmol/L (21-32); CHLORIDE 94 mmol/L (98-107); CREATININE 1.4 mg/dL (0.6-1.3); GLUCOSE 121 mg/dL (74-106); MAGNESIUM 1.8 mg/dL (1.8-2.4); PHOSPHOROUS 3.7 mg/dL (2.5-4.9); POTASSIUM 5.1 mmol/L (3.5-5.1); UREA NITROGEN, BLOOD 24 mg/dL (7-18); URIC ACID 5.5 mg/dL (2.6-6.0)
[2016-08-23 08:37] LABS: THYROID STIMULATING HORMONE 2.331 mIU/mL (0.358-3.740)
[2016-08-23] MEDS ORDERED: SPIRONOLACTONE 50 MG TABLET PO SCH (09:00)
[2016-08-23] MEDS: SUCRALFATE 1 G/10 ML LIQUID UDC PO SCH ×3 (09:36→16:30)
[2016-08-23] MEDS: ASPIRIN 325 MG TABLET PO SCH (09:37)
[2016-08-23] MEDS: FLUTICASONE/VILANTEROL 1 EACH BLST.W.DEV INH SCH (09:37)
[2016-08-23] MEDS: MECLIZINE HCL 25 MG TABLET PO SCH ×4 (09:37→20:46)
[2016-08-23] MEDS: CALCIUM CARB/VITAMIN D 500MG-200UNITS TABLET PO SCH ×2 (09:38→17:00)
[2016-08-23] MEDS: QUETIAPINE FUMARATE 25 MG TABLET PO SCH (09:38)
[2016-08-23] MEDS: VALSARTAN 160 MG TABLET PO SCH (09:38)
[2016-08-23 11:58] VITALS: BP 96/43
[2016-08-23] MEDS ORDERED: IV NORMAL SALINE 500 ML IV ONE (14:30)
[2016-08-23] MEDS: HYDROCORTISONE SOD SUCCINATE 100 MG/2 ML VIAL IV SCH ×2 (14:47→20:46)
[2016-08-23] MEDS: AZTREONAM 1 G in IV NORMAL SALINE 50 ML IV SCH (15:28)
[2016-08-23 15:46] VITALS: BP 120/41
[2016-08-23] MEDS: MONTELUKAST SODIUM 10 MG TABLET PO SCH (18:00)
[2016-08-23 20:00] VITALS: BP 104/56
[2016-08-23] MEDS: IV NS 1000 ML 1,000 ML IV PRN (20:37)
[2016-08-23] MEDS: TRAZODONE 50 MG TABLET PO SCH (20:46)
[2016-08-23] MEDS: SIMVASTATIN 10 MG TABLET PO SCH (20:46)
[2016-08-24] VITALS: BP 102/49
[2016-08-24] MEDS: AZTREONAM 1 G in IV NORMAL SALINE 50 ML IV SCH ×4 (00:13→21:33)
[2016-08-24 04:00] VITALS: BP 102/49
[2016-08-24] MEDS: PANTOPRAZOLE SODIUM 40 MG TABLET.DR PO SCH (05:51)
[2016-08-24] MEDS: SUCRALFATE 1 G/10 ML LIQUID UDC PO SCH ×3 (05:51→16:47)
[2016-08-24 07:03] LABS: EOSINOPHILS % (AUTO) 0.3 % (0.0-7.0); HEMATOCRIT 31.7 % (37-47); HEMOGLOBIN 10.6 G/DL (12.0-16.0); LYMPHOCYTES # (AUTO) 1.1 K/UL (0.8-4.8); LYMPHOCYTES % (AUTO) 10.3 % (20.5-51.5); MEAN CORPUSCULAR HEMOGLOBIN 28.4 UUG (27.0-31.0); MEAN CORPUSCULAR HGB CONC 33 g/dL (32.0-37.0); MEAN CORPUSCULAR VOLUME 85.4 FL (81.0-99.0); MONOCYTES # (AUTO) 0.3 K/UL (0.1-1.30); MONOCYTES % (AUTO) 2.5 % (0.0-11.0); NEUTROPHILS # (AUTO) 9.4 K/UL (1.8-8.9); NEUTROPHILS % (AUTO) 86.9 % (38.5-71.5); PLATELET COUNT (AUTO) 415 K/UL (150-450); RED BLOOD CELL COUNT(AUTO) 3.72 MIL/UL (4.2-5.4); WHITE BLOOD COUNT (AUTO) 10.8 K/UL (4.0-11.2)
[2016-08-24 07:13] LABS: ALANINE AMINOTRANSFERASE 13 U/L (14-59); ALKALINE PHOSPHATASE 85 U/L (50-136); ASPARTATE AMINOTRANSFERASE 10 U/L (15-37); BILIRUBIN,TOTAL 0.3 mg/dL (0.2-1.0); CARBON DIOXIDE 19 mmol/L (21-32); CHLORIDE 98 mmol/L (98-107); CREATININE 1.3 mg/dL (0.6-1.3); GLUCOSE 147 mg/dL (74-106); MAGNESIUM 1.7 mg/dL (1.8-2.4); PHOSPHOROUS 4.4 mg/dL (2.5-4.9); POTASSIUM 4.5 mmol/L (3.5-5.1); TOTAL PROTEIN, SERUM 5.8 g/dL (6.4-8.2); UREA NITROGEN, BLOOD 27 mg/dL (7-18)
[2016-08-24] MEDS: HYDROCORTISONE SOD SUCCINATE 100 MG/2 ML VIAL IV SCH ×2 (08:25→21:33)
[2016-08-24] MEDS: CALCIUM CARB/VITAMIN D 500MG-200UNITS TABLET PO SCH ×2 (08:26→16:47)
[2016-08-24] MEDS: QUETIAPINE FUMARATE 25 MG TABLET PO SCH (08:26)
[2016-08-24] MEDS: MECLIZINE HCL 25 MG TABLET PO SCH ×4 (08:26→21:05)
[2016-08-24] MEDS: FLUTICASONE/VILANTEROL 1 EACH BLST.W.DEV INH SCH (08:26)
[2016-08-24] MEDS: ASPIRIN 325 MG TABLET PO SCH (08:26)
[2016-08-24] MEDS ORDERED: CLONIDINE-TTS 3 PATCH TD SCH (09:00)
[2016-08-24] MEDS ORDERED: BARIUM SULFATE 450 ML ORAL.SUSP ONE (09:25)
[2016-08-24] MEDS ORDERED: IV NORMAL SALINE 250 ML IV ONE (09:25)
[2016-08-24] MEDS ORDERED: IOHEXOL 300MG/ML 100 ML INFUS..BTL ONE (09:25)
[2016-08-24] MEDS: MAGNESIUM SULFATE/D5W 100 ML IV SCH ×2 (11:26→11:47)
[2016-08-24 12:05] VITALS: BP 127/48
[2016-08-24 16:00] VITALS: BP 92/50
[2016-08-24] MEDS: MONTELUKAST SODIUM 10 MG TABLET PO SCH (17:02)
[2016-08-24] MEDS: IV NS 1000 ML 1,000 ML IV PRN (18:19)
[2016-08-24 20:28] VITALS: BP 109/46
[2016-08-24] MEDS: SIMVASTATIN 10 MG TABLET PO SCH (21:05)
[2016-08-24] MEDS: TRAZODONE 50 MG TABLET PO SCH (21:05)
[2016-08-24] MEDS: ACETAMINOPHEN/CODEINE 300-30 MG TABLET PO PRN (21:06)
[2016-08-25 02:00] VITALS: BP 161/89
[2016-08-25] MEDS: ACETAMINOPHEN/CODEINE 300-30 MG TABLET PO PRN ×2 (02:19→15:10)
[2016-08-25 04:00] VITALS: BP 134/64
[2016-08-25] MEDS: AZTREONAM 1 G in IV NORMAL SALINE 50 ML IV SCH ×3 (05:14→21:10)
[2016-08-25] MEDS: IV NS 1000 ML 1,000 ML IV PRN ×2 (05:57→21:10)
[2016-08-25] MEDS: PANTOPRAZOLE SODIUM 40 MG TABLET.DR PO SCH (06:16)
[2016-08-25 06:56] LABS: BASOPHILS % (AUTO) 0.1 % (0.0-2.0); EOSINOPHILS # (AUTO) 0.1 K/uL (0.0-0.7); EOSINOPHILS % (AUTO) 0.8 % (0.0-7.0); HEMATOCRIT 29.7 % (37-47); HEMOGLOBIN 10.1 G/DL (12.0-16.0); LYMPHOCYTES # (AUTO) 0.9 K/UL (0.8-4.8); LYMPHOCYTES % (AUTO) 8.3 % (20.5-51.5); MEAN CORPUSCULAR HGB CONC 34 g/dL (32.0-37.0); MEAN CORPUSCULAR VOLUME 85.2 FL (81.0-99.0); MONOCYTES # (AUTO) 0.2 K/UL (0.1-1.30); MONOCYTES % (AUTO) 1.7 % (0.0-11.0); NEUTROPHILS # (AUTO) 9.6 K/UL (1.8-8.9); NEUTROPHILS % (AUTO) 89.1 % (38.5-71.5); PLATELET COUNT (AUTO) 414 K/UL (150-450); RED BLOOD CELL COUNT(AUTO) 3.49 MIL/UL (4.2-5.4); WHITE BLOOD COUNT (AUTO) 10.8 K/UL (4.0-11.2)
[2016-08-25 07:23] LABS: ALANINE AMINOTRANSFERASE 15 U/L (14-59); ALKALINE PHOSPHATASE 82 U/L (50-136); ASPARTATE AMINOTRANSFERASE 12 U/L (15-37); BILIRUBIN,TOTAL 0.2 mg/dL (0.2-1.0); CARBON DIOXIDE 21 mmol/L (21-32); CHLORIDE 99 mmol/L (98-107); CREATININE 1.4 mg/dL (0.6-1.3); GLUCOSE 141 mg/dL (74-106); PHOSPHOROUS 3.3 mg/dL (2.5-4.9); POTASSIUM 4.4 mmol/L (3.5-5.1); UREA NITROGEN, BLOOD 26 mg/dL (7-18)
[2016-08-25] MEDS: SUCRALFATE 1 G/10 ML LIQUID UDC PO SCH ×3 (08:14→17:03)
[2016-08-25] MEDS: ASPIRIN 325 MG TABLET PO SCH (08:14)
[2016-08-25] MEDS: MECLIZINE HCL 25 MG TABLET PO SCH ×4 (08:14→20:08)
[2016-08-25] MEDS: QUETIAPINE FUMARATE 25 MG TABLET PO SCH (08:14)
[2016-08-25] MEDS: HYDROCORTISONE SOD SUCCINATE 100 MG/2 ML VIAL IV SCH ×2 (08:14→20:08)
[2016-08-25] MEDS: CALCIUM CARB/VITAMIN D 500MG-200UNITS TABLET PO SCH ×2 (08:15→17:03)
[2016-08-25] MEDS: FLUTICASONE/VILANTEROL 1 EACH BLST.W.DEV INH SCH (08:16)
[2016-08-25 12:01] VITALS: BP 153/68
[2016-08-25 16:18] VITALS: BP 155/94
[2016-08-25] MEDS: MONTELUKAST SODIUM 10 MG TABLET PO SCH (17:03)
[2016-08-25 20:00] VITALS: BP 161/89
[2016-08-25] MEDS: TRAZODONE 50 MG TABLET PO SCH (20:08)
[2016-08-25] MEDS: SIMVASTATIN 10 MG TABLET PO SCH (20:08)
[2016-08-25] MEDS: NIFEdipine XL 30 MG TABSR PO SCH (22:37)
[2016-08-25] MEDS ORDERED: NIFEdipine XL 30 MG TABSR PO ONE (22:45)
[2016-08-26 05:03] VITALS: BP 145/71
[2016-08-26] MEDS: PANTOPRAZOLE SODIUM 40 MG TABLET.DR PO SCH (06:29)
[2016-08-26] MEDS: AZTREONAM 1 G in IV NORMAL SALINE 50 ML IV SCH ×3 (06:29→21:14)
[2016-08-26] MEDS: SUCRALFATE 1 G/10 ML LIQUID UDC PO SCH ×3 (06:30→17:41)
[2016-08-26] MEDS: ASPIRIN 325 MG TABLET PO SCH (08:29)
[2016-08-26] MEDS: CALCIUM CARB/VITAMIN D 500MG-200UNITS TABLET PO SCH ×2 (08:29→17:41)
[2016-08-26] MEDS: QUETIAPINE FUMARATE 25 MG TABLET PO SCH (08:30)
[2016-08-26] MEDS: MECLIZINE HCL 25 MG TABLET PO SCH ×4 (08:30→20:11)
[2016-08-26] MEDS: HYDROCORTISONE SOD SUCCINATE 100 MG/2 ML VIAL IV SCH ×2 (08:30→20:11)
[2016-08-26] MEDS: NIFEdipine XL 30 MG TABSR PO SCH ×2 (08:33→20:11)
[2016-08-26] MEDS: FLUTICASONE/VILANTEROL 1 EACH BLST.W.DEV INH SCH (08:34)
[2016-08-26 11:39] VITALS: BP 146/80
[2016-08-26] MEDS: ERYTHROMYCIN ETHYLSUCC 200 MG/5 ML SUSPENSION 100ML PO SCH ×3 (11:56→21:15)
[2016-08-26] MEDS: IV NS 1000 ML 1,000 ML IV PRN (12:02)
[2016-08-26 15:47] VITALS: BP 128/67
[2016-08-26] MEDS: MONTELUKAST SODIUM 10 MG TABLET PO SCH (17:41)
[2016-08-26 20:00] VITALS: BP 137/69
[2016-08-26] MEDS: SIMVASTATIN 10 MG TABLET PO SCH (20:11)
[2016-08-26] MEDS: TRAZODONE 50 MG TABLET PO SCH (20:12)
[2016-08-27] MEDS: IV NS 1000 ML 1,000 ML IV PRN (01:56)
[2016-08-27 04:50] VITALS: BP 120/62
[2016-08-27] MEDS: AZTREONAM 1 G in IV NORMAL SALINE 50 ML IV SCH ×2 (05:15→14:05)
[2016-08-27] MEDS: ERYTHROMYCIN ETHYLSUCC 200 MG/5 ML SUSPENSION 100ML PO SCH ×2 (05:15→14:05)
[2016-08-27] MEDS: PANTOPRAZOLE SODIUM 40 MG TABLET.DR PO SCH (06:44)
[2016-08-27 06:57] LABS: BASOPHILS % (AUTO) 0.2 % (0.0-2.0); EOSINOPHILS % (AUTO) 0.3 % (0.0-7.0); LYMPHOCYTES # (AUTO) 1.6 K/UL (0.8-4.8); LYMPHOCYTES % (AUTO) 11.9 % (20.5-51.5); MEAN CORPUSCULAR HEMOGLOBIN 28.5 UUG (27.0-31.0); MEAN CORPUSCULAR HGB CONC 34 g/dL (32.0-37.0); MEAN CORPUSCULAR VOLUME 84.6 FL (81.0-99.0); NEUTROPHILS # (AUTO) 10.5 K/UL (1.8-8.9); NEUTROPHILS % (AUTO) 79.6 % (38.5-71.5); WHITE BLOOD COUNT (AUTO) 13.1 K/UL (4.0-11.2)
[2016-08-27 07:16] LABS: HEMATOCRIT 36.5 % (37-47); HEMOGLOBIN 12.3 G/DL (12.0-16.0); PLATELET COUNT (AUTO) 536 K/UL (150-450); RED BLOOD CELL COUNT(AUTO) 4.31 MIL/UL (4.2-5.4)
[2016-08-27] MEDS: SUCRALFATE 1 G/10 ML LIQUID UDC PO SCH ×2 (08:40→11:47)
[2016-08-27] MEDS: HYDROCORTISONE SOD SUCCINATE 100 MG/2 ML VIAL IV SCH (08:40)
[2016-08-27] MEDS: QUETIAPINE FUMARATE 25 MG TABLET PO SCH (08:41)
[2016-08-27] MEDS: NIFEdipine XL 30 MG TABSR PO SCH (08:41)
[2016-08-27] MEDS: ASPIRIN 325 MG TABLET PO SCH (08:41)
[2016-08-27] MEDS: CALCIUM CARB/VITAMIN D 500MG-200UNITS TABLET PO SCH (08:41)
[2016-08-27] MEDS: MECLIZINE HCL 25 MG TABLET PO SCH ×2 (08:42→12:36)
[2016-08-27] MEDS: FLUTICASONE/VILANTEROL 1 EACH BLST.W.DEV INH SCH (08:43)
[2016-08-27] MEDS ORDERED: Erythromycin Ethylsuccinate PO (08:54)
[2016-08-27] MEDS ORDERED: NIFE30TA2 PO (08:54)
[2016-08-27] MEDS ORDERED: AZTR1VIA4 IV (08:59)
[2016-08-27 09:19] LABS: ALANINE AMINOTRANSFERASE 18 U/L (14-59); ALKALINE PHOSPHATASE 97 U/L (50-136); ASPARTATE AMINOTRANSFERASE 21 U/L (15-37); BILIRUBIN,TOTAL 0.2 mg/dL (0.2-1.0); CARBON DIOXIDE 27 mmol/L (21-32); CHLORIDE 97 mmol/L (98-107); CREATININE 1.2 mg/dL (0.6-1.3); GLUCOSE 184 mg/dL (74-106); MAGNESIUM 1.7 mg/dL (1.8-2.4); PHOSPHOROUS 1.5 mg/dL (2.5-4.9); TOTAL PROTEIN, SERUM 6.9 g/dL (6.4-8.2); UREA NITROGEN, BLOOD 15 mg/dL (7-18)
[2016-08-27 09:56] LABS: LYMPHOCYTES % (MANUAL) 10 % (20-40); MONOCYTES % (MANUAL) 7 % (2-10); NEUTROPHILS % (MANUAL) 83 % (42-75)
[2016-08-27 11:52] VITALS: BP 117/61
[2016-08-27] MEDS: MAGNESIUM SULFATE/D5W 100 ML IV SCH ×2 (12:36→13:41)
[2016-08-27] MEDS ORDERED: POTASSIUM CHLORIDE 20 MEQ TAB.PRT.SR PO ONE ×2 (14:45→16:45)
[2016-08-27] MEDS ORDERED: NEUTRA PHOS PACKET PO ONE (15:15)
== END 2016-08-27 15:15 | DRG 643 ==
LOC: ER 13:45 → TELE 15:30 → MED 08-24 18:30
PROVIDERS: ADMIT Internal Medicine; ATTEND Internal Medicine
DX: E22.2 Syndrome of inappropriate secretion of antidiuretic hormone (principal); J96.90 Respiratory failure, unspecified, unspecified whether with hypoxia or hypercapnia; R53.2 Functional quadriplegia; N17.9 Acute kidney failure, unspecified; J44.1 Chronic obstructive pulmonary disease with (acute) exacerbation; I13.0 Hypertensive heart and chronic kidney disease with heart failure and stage 1 through stage 4 chronic kidney disease, or unspecified chronic kidney disease; I50.32 Chronic diastolic (congestive) heart failure; N39.0 Urinary tract infection, site not specified; E78.5 Hyperlipidemia, unspecified; M19.90 Unspecified osteoarthritis, unspecified site; E87.5 Hyperkalemia; E83.42 Hypomagnesemia; Z88.0 Allergy status to penicillin; K44.9 Diaphragmatic hernia without obstruction or gangrene; E11.43 Type 2 diabetes mellitus with diabetic autonomic (poly)neuropathy; D64.9 Anemia, unspecified; D75.89 Other specified diseases of blood and blood-forming organs; E11.22 Type 2 diabetes mellitus with diabetic chronic kidney disease; K21.9 Gastro-esophageal reflux disease without esophagitis; N18.9 Chronic kidney disease, unspecified; F03.90 Unspecified dementia, unspecified severity, without behavioral disturbance, psychotic disturbance, mood disturbance, and anxiety; Z90.710 Acquired absence of both cervix and uterus; R42 Dizziness and giddiness; E86.1 Hypovolemia; E83.51 Hypocalcemia; B96.20 Unspecified Escherichia coli [E. coli] as the cause of diseases classified elsewhere; K22.0 Achalasia of cardia; K22.70 Barrett's esophagus without dysplasia; Z86.19 Personal history of other infectious and parasitic diseases; Z79.899 Other long term (current) drug therapy
CPT/HCPCS: 36415; 70030-TC; 71010; 74160; 82533; 83690; 83735; 84100; 84300; 84443; 84550; 85025; 85730; 87040; 87077; 87086; 93005; 97110; 97116; 97161; 97165; 97530; A4663; C1758; J1720; J3475; J3490; J7030; J7040; J7050; J8597; Q9951; Q9967

== ENCOUNTER 2016-08-27 13:33 | Inpatient (IN) | payer MEDICARE, MEDICAID ==
[~2016-08-27] VITALS: Ht 154.9 cm; Wt 56.7 kg
[~2016-08-27 13:33] MED LIST changes: +ACET1TAB12 PO; +AZTR1VIA4 IV; -ERGO500014 PO; -METO-295 PO; +NIFE30TA2 PO
--- NOTE | 2016-08-27 15:30 | NUR ---
Admitted to ARU via wheel chair from 2nd floor med-surg. accompanied by nurse and SILVERWARE BUFFING MACHINE OPERATOR. In stable condition, alert oriented x4. No S/S of distress. No complaints of pain or discomfort. With IV saline lock patent on right hand. Patient claimed to have no BM since Wednesday. Informed Dr. Tovar, Dulcolax 10 mg PO prn daily ordered. Oriented patient to room, unit and staff. Informed Dr. Tovar and Dr. Izquierdo of admission. Encouraged patient to call for needs.
[2016-08-27 17:10] VITALS: BP 127/71
[2016-08-27] MEDS ORDERED: POTASSIUM CHLORIDE 20 MEQ TAB.PRT.SR PO ONE (17:30)
[2016-08-27] MEDS ORDERED: BISACODYL 5 MG TABLET.DR PO PRN (18:30)
[2016-08-27] MEDS ORDERED: Z GUARD REMEDY PASTE 57 GM TUBE TOP PRN (18:30)
[2016-08-27] MEDS ORDERED: CLONIDINE-TTS 3 PATCH TD SCH (19:00)
[2016-08-27] MEDS ORDERED: FLUTICASONE/SALMETEROL 250/50 INHALER IH SCH (21:00)
[2016-08-27 21:05] VITALS: BP 120/65
[2016-08-27] MEDS: MECLIZINE HCL 25 MG TABLET PO SCH (22:00)
[2016-08-27] MEDS: TRAZODONE 50 MG TABLET PO SCH (22:01)
[2016-08-27] MEDS: VALSARTAN 160 MG TABLET PO SCH (22:02)
[2016-08-27] MEDS: AZTREONAM 1 G in IV NORMAL SALINE 50 ML IV SCH (22:03)
[2016-08-27] MEDS: NIFEdipine XL 30 MG TABSR PO SCH (22:03)
[2016-08-27] MEDS: ERYTHROMYCIN ETHYLSUCC 200 MG/5 ML SUSPENSION 100ML PO SCH (22:07)
[2016-08-28] MEDS: SUCRALFATE 1 G/10 ML LIQUID UDC PO SCH ×3 (06:35→17:32)
[2016-08-28] MEDS: PANTOPRAZOLE SODIUM 40 MG TABLET.DR PO SCH ×2 (06:35→09:23)
--- NOTE | 2016-08-28 06:38 | NUR ---
PT AWAKE SMILING ,SLEPTED FAIRLY WELL DURING THE NIGHT WITH NO DISTRESS OR COMPLAINTS NOTED., UP TWICE TO BR DURING THE NIGHT WITH ASSIST AND FWW, BED ALARM ON , PT GETS UP WITHOUT CALLING FOR ASSIST OR USING CALL LIGHT, GEORGIAN SPEAKING ONLY, PT ALSO PULLED OUT IV ACCESS, SALINE LOCK FOUND LYING ON PATIENT'S BEDSIDE TABLE. IV ABTX DUE THIS AM AT 0600 AZACTAM. UNABLE TO RESTART ANOTHER IV ACCESS, UNSUCCESSFUL WITH ONE ATTEMPT. WILL ENDORSE TO ONCOMING RN RECEIVING PATIENT.
--- NOTE | 2016-08-28 07:00 | NUR ---
RECEIVED REPORT FROM EMBROIDERY SPECIALIST NURSE, PT CALM/QUIET, NO DISTRESS, NO C/O PAIN, A/O TIMES 4, CALL LIGHT IN REACH, VISUAL CHECKS MADE OFTEN, WILL CONTINUE TO MONITOR.
[2016-08-28 07:28] LABS: BASOPHILS % (AUTO) 0.1 % (0.0-2.0); EOSINOPHILS # (AUTO) 0.5 K/uL (0.0-0.7); HEMATOCRIT 37.9 % (37-47); HEMOGLOBIN 12.4 G/DL (12.0-16.0); LYMPHOCYTES # (AUTO) 3.5 K/UL (0.8-4.8); LYMPHOCYTES % (AUTO) 21.3 % (20.5-51.5); MEAN CORPUSCULAR HGB CONC 33 g/dL (32.0-37.0); MEAN CORPUSCULAR VOLUME 85.4 FL (81.0-99.0); MONOCYTES # (AUTO) 1.5 K/UL (0.1-1.30); MONOCYTES % (AUTO) 9.3 % (0.0-11.0); NEUTROPHILS % (AUTO) 66.3 % (38.5-71.5); PLATELET COUNT (AUTO) 540 K/UL (150-450); RED BLOOD CELL COUNT(AUTO) 4.44 MIL/UL (4.2-5.4)
[2016-08-28 07:30] LABS: WHITE BLOOD COUNT (AUTO) 16.5 K/UL (4.0-11.2)
[2016-08-28 07:46] LABS: CARBON DIOXIDE 30 mmol/L (21-32); CHLORIDE 101 mmol/L (98-107); CHOLESTEROL 180 mg/dL (<200); GLUCOSE 114 mg/dL (74-106); HDL CHOLESTEROL 80 mg/dL (40-60); MAGNESIUM 2.1 mg/dL (1.8-2.4); PHOSPHOROUS 1.2 mg/dL (2.5-4.9); POTASSIUM 4.2 mmol/L (3.5-5.1); TRIGLYCERIDES 72 MG/DL (30-150); UREA NITROGEN, BLOOD 12 mg/dL (7-18)
[2016-08-28] MEDS ORDERED: SPIRONOLACTONE 50 MG TABLET PO SCH (09:00)
[2016-08-28] MEDS: VALSARTAN 160 MG TABLET PO SCH ×2 (09:00→22:01)
[2016-08-28] MEDS: ERYTHROMYCIN ETHYLSUCC 200 MG/5 ML SUSPENSION 100ML PO SCH ×2 (09:00→22:05)
[2016-08-28] MEDS: FLUTICASONE/VILANTEROL 1 EACH BLST.W.DEV INH SCH (09:00)
[2016-08-28] MEDS ORDERED: CLONIDINE HCL 0.3 MG TABLET PO SCH (09:00)
[2016-08-28] MEDS: NIFEdipine XL 30 MG TABSR PO SCH ×2 (09:00→22:01)
[2016-08-28] MEDS: ASPIRIN 325 MG TABLET PO SCH (09:22)
[2016-08-28] MEDS: QUETIAPINE FUMARATE 25 MG TABLET PO SCH (09:22)
[2016-08-28] MEDS: CALCIUM CARB/VITAMIN D 500MG-200UNITS TABLET PO SCH ×2 (09:23→17:32)
[2016-08-28] MEDS: MECLIZINE HCL 25 MG TABLET PO SCH ×4 (09:23→21:59)
[2016-08-28 09:30] VITALS: BP 141/77
[2016-08-28] MEDS: SIMVASTATIN 10 MG TABLET PO SCH (10:04)
[2016-08-28] MEDS: NEUTRA PHOS PACKET PO SCH ×3 (10:04→17:33)
[2016-08-28] MEDS: MONTELUKAST SODIUM 10 MG TABLET PO SCH (17:32)
--- NOTE | 2016-08-28 18:25 | NUR ---
PT RESTING IN BED, CALL LIGHT IN REACH, NO C/O PAIN, FAMILY AT BEDSIDE, WILL ENDORSE TO HAIR MACHINE OPERATOR NURSE.
--- NOTE | 2016-08-28 19:30 | NUR ---
pt resting in bed with family at bedside. no s/s of distress, no c/o pain at this time. will continue to monitor
[2016-08-28 20:15] VITALS: BP 124/76
[2016-08-28] MEDS: TRAZODONE 50 MG TABLET PO SCH (22:01)
[2016-08-29] MEDS: AZTREONAM 1 G in IV NORMAL SALINE 50 ML IV SCH ×6 (00:06→21:01)
--- NOTE | 2016-08-29 01:49 | NUR ---
pt's 2200 iv antibiotic was administered late due to pt not having iv site, I tried to start iv and was unsucessful, iv was not obtained until almost 0000, pt's antibiotic was administered at 0000, past due times still show up on APR, next dose should be administered at 0800.
--- NOTE | 2016-08-29 07:42 | NUR ---
pt resting in bed, no s/s of distress, no c/o pain, call light kept in reach, monitored closely during shift. endorsed to dayshift
[2016-08-29 07:51] LABS: BASOPHILS # (AUTO) 0.1 K/uL (0.0-8.0); BASOPHILS % (AUTO) 0.6 % (0.0-2.0); EOSINOPHILS # (AUTO) 0.3 K/uL (0.0-0.7); EOSINOPHILS % (AUTO) 2.1 % (0.0-7.0); HEMATOCRIT 37.6 % (37-47); HEMOGLOBIN 12.4 G/DL (12.0-16.0); LYMPHOCYTES # (AUTO) 2.4 K/UL (0.8-4.8); LYMPHOCYTES % (AUTO) 14.2 % (20.5-51.5); MEAN CORPUSCULAR HGB CONC 33 g/dL (32.0-37.0); MEAN CORPUSCULAR VOLUME 84.7 FL (81.0-99.0); MONOCYTES # (AUTO) 0.5 K/UL (0.1-1.30); MONOCYTES % (AUTO) 3.3 % (0.0-11.0); NEUTROPHILS # (AUTO) 13.3 K/UL (1.8-8.9); NEUTROPHILS % (AUTO) 79.8 % (38.5-71.5); PLATELET COUNT (AUTO) 499 K/UL (150-450); RED BLOOD CELL COUNT(AUTO) 4.44 MIL/UL (4.2-5.4); WHITE BLOOD COUNT (AUTO) 16.6 K/UL (4.0-11.2)
[2016-08-29] MEDS: SUCRALFATE 1 G/10 ML LIQUID UDC PO SCH ×3 (07:52→16:57)
[2016-08-29 07:58] LABS: CARBON DIOXIDE 28 mmol/L (21-32); CHLORIDE 96 mmol/L (98-107); GLUCOSE 129 mg/dL (74-106); POTASSIUM 3.7 mmol/L (3.5-5.1); UREA NITROGEN, BLOOD 14 mg/dL (7-18)
[2016-08-29 07:59] LABS: ALANINE AMINOTRANSFERASE 18 U/L (14-59); ALKALINE PHOSPHATASE 101 U/L (50-136); ASPARTATE AMINOTRANSFERASE 18 U/L (15-37); BILIRUBIN,TOTAL 0.4 mg/dL (0.2-1.0); CREATININE 0.9 mg/dL (0.6-1.3); MAGNESIUM 1.9 mg/dL (1.8-2.4); PHOSPHOROUS 2.5 mg/dL (2.5-4.9); TOTAL PROTEIN, SERUM 6.6 g/dL (6.4-8.2)
[2016-08-29 08:30] VITALS: BP 108/60
[2016-08-29] MEDS: FLUTICASONE/VILANTEROL 1 EACH BLST.W.DEV INH SCH (09:00)
[2016-08-29] MEDS: QUETIAPINE FUMARATE 25 MG TABLET PO SCH (10:14)
[2016-08-29] MEDS: SIMVASTATIN 10 MG TABLET PO SCH (10:14)
[2016-08-29] MEDS: ASPIRIN 325 MG TABLET PO SCH (10:14)
[2016-08-29] MEDS: CALCIUM CARB/VITAMIN D 500MG-200UNITS TABLET PO SCH ×2 (10:15→16:57)
[2016-08-29] MEDS: VALSARTAN 160 MG TABLET PO SCH ×2 (10:19→20:49)
[2016-08-29] MEDS: MECLIZINE HCL 25 MG TABLET PO SCH ×4 (10:20→20:49)
[2016-08-29] MEDS: ERYTHROMYCIN ETHYLSUCC 200 MG/5 ML SUSPENSION 100ML PO SCH ×2 (10:23→20:54)
[2016-08-29] MEDS: NIFEdipine XL 30 MG TABSR PO SCH ×2 (16:09→20:49)
[2016-08-29] MEDS: MONTELUKAST SODIUM 10 MG TABLET PO SCH (16:57)
--- NOTE | 2016-08-29 18:43 | NUR ---
pt received in bed this am at 0700. Pt was pleasant and resting all day. She participated in OT and PT and did well. No pain reported. Appetite was fair. Skin intact will continue to monitor the pt throughout the rest of shift
--- NOTE | 2016-08-29 19:05 | NUR ---
Received report from DALILA Jenkins
--- NOTE | 2016-08-29 19:10 | NUR ---
Pt resting comfortably on her bed, pt responded appropriately in marshallese language. Assessment done, see flowsheet.
[2016-08-29 20:00] VITALS: BP 131/61
--- NOTE | 2016-08-29 20:15 | NUR ---
PM meds given, pt swallowed w/ no difficulty. Cleansed her left hand finger w/ betadine, applied hydrogel and covered w/ tegaderm. Pulled up pt from bed w/ assistance.Made her comfortable, stretched linens, turned and repositioned.Oral care done.Continue monitor.
[2016-08-29] MEDS: TRAZODONE 50 MG TABLET PO SCH (20:48)
--- NOTE | 2016-08-30 | NUR ---
Pt continued to sleep. Breathing normally. Continue monitor.Call lights w/in reach. bed at the lowest position.
--- NOTE | 2016-08-30 02:00 | NUR ---
Pt continued to sleep. Breathing normally. Continue monitor.Call lights w/in reach. bed at the lowest position.
--- NOTE | 2016-08-30 04:00 | NUR ---
Pt resting comfortably.Breathing normally.Continue monitor.
[2016-08-30] MEDS: AZTREONAM 1 G in IV NORMAL SALINE 50 ML IV SCH ×2 (05:31→14:36)
--- NOTE | 2016-08-30 06:00 | NUR ---
Perineal care done, inserted IV line at RFA g 22 by Charge nurse Esther. Given am meds as ordered. Kept pt safe, bed to lowest position, call lights w/in reach.
[2016-08-30] MEDS: PANTOPRAZOLE SODIUM 40 MG TABLET.DR PO SCH (06:32)
[2016-08-30] MEDS: SUCRALFATE 1 G/10 ML LIQUID UDC PO SCH ×3 (06:32→16:39)
[2016-08-30 07:09] LABS: BASOPHILS % (AUTO) 0.2 % (0.0-2.0); EOSINOPHILS # (AUTO) 0.3 K/uL (0.0-0.7); EOSINOPHILS % (AUTO) 2.4 % (0.0-7.0); HEMATOCRIT 34.9 % (37-47); HEMOGLOBIN 11.8 G/DL (12.0-16.0); LYMPHOCYTES # (AUTO) 2.6 K/UL (0.8-4.8); MEAN CORPUSCULAR HEMOGLOBIN 28.8 UUG (27.0-31.0); MEAN CORPUSCULAR HGB CONC 34 g/dL (32.0-37.0); MEAN CORPUSCULAR VOLUME 84.7 FL (81.0-99.0); MONOCYTES # (AUTO) 0.7 K/UL (0.1-1.30); MONOCYTES % (AUTO) 4.9 % (0.0-11.0); NEUTROPHILS # (AUTO) 9.9 K/UL (1.8-8.9); NEUTROPHILS % (AUTO) 73.5 % (38.5-71.5); PLATELET COUNT (AUTO) 471 K/UL (150-450); RED BLOOD CELL COUNT(AUTO) 4.12 MIL/UL (4.2-5.4); WHITE BLOOD COUNT (AUTO) 13.5 K/UL (4.0-11.2)
--- NOTE | 2016-08-30 07:10 | NUR ---
Report given to DALILA Méndez
--- NOTE | 2016-08-30 07:15 | NUR ---
REPORT RECEIVED.PT REMAINS AWAKE,ALERT,ORIENTED.DENIES PAIN,DISCOMFORT.ON ROOM AIR.NO SOB NOTED.CALL LIGHT WITHIN REACH.WILL CONTINUE TO ASSIST. NEEDED.
[2016-08-30 07:23] LABS: ALANINE AMINOTRANSFERASE 14 U/L (14-59); ALKALINE PHOSPHATASE 97 U/L (50-136); ASPARTATE AMINOTRANSFERASE 14 U/L (15-37); BILIRUBIN,TOTAL 0.4 mg/dL (0.2-1.0); CARBON DIOXIDE 28 mmol/L (21-32); CHLORIDE 95 mmol/L (98-107); CREATININE 0.9 mg/dL (0.6-1.3); GLUCOSE 124 mg/dL (74-106); MAGNESIUM 1.7 mg/dL (1.8-2.4); PHOSPHOROUS 2.6 mg/dL (2.5-4.9); POTASSIUM 3.3 mmol/L (3.5-5.1); TOTAL PROTEIN, SERUM 6.1 g/dL (6.4-8.2); UREA NITROGEN, BLOOD 16 mg/dL (7-18)
[2016-08-30 07:30] VITALS: BP 114/68
[2016-08-30] MEDS ORDERED: POTASSIUM CHLORIDE 10 MEQ CAPSULE.SA PO ONE (08:00)
[2016-08-30 08:46] VITALS: BP 131/63
[2016-08-30] MEDS: ASPIRIN 325 MG TABLET PO SCH (08:57)
[2016-08-30] MEDS: MECLIZINE HCL 25 MG TABLET PO SCH ×4 (08:57→21:07)
[2016-08-30] MEDS: CALCIUM CARB/VITAMIN D 500MG-200UNITS TABLET PO SCH ×2 (08:57→16:40)
[2016-08-30] MEDS: VALSARTAN 160 MG TABLET PO SCH ×2 (08:58→21:00)
[2016-08-30] MEDS: QUETIAPINE FUMARATE 25 MG TABLET PO SCH (08:58)
[2016-08-30] MEDS: SIMVASTATIN 10 MG TABLET PO SCH (08:58)
[2016-08-30] MEDS: NIFEdipine XL 30 MG TABSR PO SCH ×2 (08:59→21:00)
[2016-08-30] MEDS: ERYTHROMYCIN ETHYLSUCC 200 MG/5 ML SUSPENSION 100ML PO SCH ×2 (08:59→21:07)
[2016-08-30] MEDS: FLUTICASONE/VILANTEROL 1 EACH BLST.W.DEV INH SCH (09:00)
--- NOTE | 2016-08-30 10:00 | NUR ---
PT PARTICIPATED IN OT/PT.DENIES PAIN,DISCOMFORT.ALL AM MEDICATION GIVEN.
[2016-08-30 15:00] VITALS: BP 106/58
[2016-08-30] MEDS: MONTELUKAST SODIUM 10 MG TABLET PO SCH (17:30)
[2016-08-30 20:00] VITALS: BP 102/60
--- NOTE | 2016-08-30 20:00 | NUR ---
PATIENT AWAKE IN BED. A/O X3. KOREAN SPEAKING BUT ABLE TO MAKE NEEDS KNOWN. VS WNL. DENIES PAIN OR DISCOMFORT. NO RESP. DISTRESS NOTED. BED ALARM ON. CALL LIGHT IN REACH. ALL NEEDS ATTENDED. WILL CONTINUE TO MONITOR.
[2016-08-30] MEDS: MAGNESIUM OXIDE 400 MG TABLET PO SCH (21:04)
[2016-08-30] MEDS: TRAZODONE 50 MG TABLET PO SCH (21:05)
[2016-08-31] MEDS: PANTOPRAZOLE SODIUM 40 MG TABLET.DR PO SCH (06:30)
[2016-08-31] MEDS: SUCRALFATE 1 G/10 ML LIQUID UDC PO SCH ×3 (06:31→17:07)
--- NOTE | 2016-08-31 06:31 | NUR ---
PATIENT AWAKE IN BED, WATCHING TV. SLEPT WELL. DENIES PAIN. CALL LIGHT IN REACH. ALL NEEDS ATTENDED,WILL CONTINUE TO MONITOR, AND ASSESS.
[2016-08-31 07:30] VITALS: BP 116/68
[2016-08-31] MEDS: FLUTICASONE/VILANTEROL 1 EACH BLST.W.DEV INH SCH (08:36)
[2016-08-31] MEDS: SIMVASTATIN 10 MG TABLET PO SCH (08:37)
[2016-08-31] MEDS: ASPIRIN 325 MG TABLET PO SCH (08:37)
[2016-08-31] MEDS: QUETIAPINE FUMARATE 25 MG TABLET PO SCH (08:37)
[2016-08-31] MEDS: VALSARTAN 160 MG TABLET PO SCH ×2 (08:37→20:34)
[2016-08-31] MEDS: ERYTHROMYCIN ETHYLSUCC 200 MG/5 ML SUSPENSION 100ML PO SCH ×2 (08:37→20:36)
[2016-08-31] MEDS: MECLIZINE HCL 25 MG TABLET PO SCH ×4 (08:38→20:31)
[2016-08-31] MEDS: NIFEdipine XL 30 MG TABSR PO SCH ×2 (08:38→20:36)
[2016-08-31] MEDS: CALCIUM CARB/VITAMIN D 500MG-200UNITS TABLET PO SCH ×2 (08:38→17:08)
--- NOTE | 2016-08-31 09:45 | NUR ---
RECEIVED PATIENT AWAKE RESTING IN BED. ALERT, ORIENTED X4. NO S/S OF DISTRESS. NO COMPLAINTS OF PAIN AND DISCOMFORT AT THIS TIME. UP WITH THERAPY, TOLERATING THERAPY WELL.
[2016-08-31] MEDS: MONTELUKAST SODIUM 10 MG TABLET PO SCH (17:08)
--- NOTE | 2016-08-31 18:21 | NUR ---
Tolerated therapy well. No complaints of pain or discomfort throughout the shift. No complaints of SOB. VSS. Attended to needs promptly. Call light within reach.
--- NOTE | 2016-08-31 19:45 | NUR ---
PATIENT AWAKE IN BED. A/O X3. ENGLISH SPEAKING BUT ABLE TO MAKE NEEDS KNOWN. VS WNL. DENIES PAIN OR DISCOMFORT. NO RESP. DISTRESS NOTED. BED ALARM ON. CALL LIGHT IN REACH. ALL NEEDS ATTENDED. WILL CONTINUE TO MONITOR.
[2016-08-31 20:00] VITALS: BP 120/67
[2016-08-31] MEDS: MAGNESIUM OXIDE 400 MG TABLET PO SCH (20:31)
[2016-08-31] MEDS: TRAZODONE 50 MG TABLET PO SCH (20:31)
[2016-09-01] MEDS: PANTOPRAZOLE SODIUM 40 MG TABLET.DR PO SCH (06:30)
[2016-09-01] MEDS: SUCRALFATE 1 G/10 ML LIQUID UDC PO SCH ×3 (06:30→17:29)
--- NOTE | 2016-09-01 06:37 | NUR ---
PATIENT AWAKE, RESTING IN BED. SLEPT WELL THROUGHOUT THE NIGHT. DENIES PAIN OR DISCOMFORT. NO RESP. DISTRESS NOTED. CALL LIGHT IN REACH. ALL NEEDS ATTENDED. WILL CONTINUE TO MONITOR.
--- NOTE | 2016-09-01 07:35 | NUR ---
RECEIVED PATIENT ASLEEP RESTING IN BED. NON LABORED BREATHING, CALL LIGHT WITHIN REACH, WILL CONTINUE TO MONITOR.
[2016-09-01] MEDS: FLUTICASONE/VILANTEROL 1 EACH BLST.W.DEV INH SCH (09:10)
[2016-09-01] MEDS: QUETIAPINE FUMARATE 25 MG TABLET PO SCH (09:11)
[2016-09-01] MEDS: VALSARTAN 160 MG TABLET PO SCH ×2 (09:11→20:18)
[2016-09-01] MEDS: NIFEdipine XL 30 MG TABSR PO SCH ×2 (09:12→20:17)
[2016-09-01] MEDS: CALCIUM CARB/VITAMIN D 500MG-200UNITS TABLET PO SCH ×2 (09:12→17:29)
[2016-09-01] MEDS: ASPIRIN 325 MG TABLET PO SCH (09:12)
[2016-09-01] MEDS: ERYTHROMYCIN ETHYLSUCC 200 MG/5 ML SUSPENSION 100ML PO SCH ×2 (09:12→20:18)
[2016-09-01] MEDS: SIMVASTATIN 10 MG TABLET PO SCH (09:12)
[2016-09-01] MEDS: MECLIZINE HCL 25 MG TABLET PO SCH ×4 (09:12→20:17)
[2016-09-01 09:38] VITALS: BP 125/72
--- NOTE | 2016-09-01 10:00 | NUR ---
UP WITH PT. TOLERATED BREAKFAST WELL. ALERT AND ORIENTED X4. NO COMPLAINTS OF PAIN/ DISCOMFORT. NO S/S OF DISTRESS.
--- NOTE | 2016-09-01 13:15 | NUR ---
Patient complained of dysuria, afebrile no hypogastric pain or nausea. Informed Dr. Camargo, ordered U/A amd U/A ROUND KILN DRAWER
--- NOTE | 2016-09-01 14:46 | NUR ---
Director Of Reimbursement: SW met with patient at bedside to assess needs and provide support. Patient is an 80-year-old Turkmen speaking female admitted to ARU due to various comorbidities (CHF, hypertension, dyslipidemia, renal insufficiency, esophageal reflux,). Interview was conducted in Turkmen. Patient reported she has a long hx of hospitalizations, and stated she has not been ambulatory for the past year. Per patient, she uses a wheelchair and FWW at home. She reported to live alone, however stated she has a caregiver/friend who is with her morning/night. Additionally, she reported to have a strong support from her daughter, Katiana. Patient appeared calm and cooperative during interview, but did appear tired and depressed due to hospitalization. Regardless, patient stated she is motivated to participate and comply with rehab goals. She stated her goal is to "return home once I am stronger." Patient reported "They have helped me a lot" when referring to physical therapy. She presented a happy affect at the end of interview and stated "I'm starting to walk more now." Patient also reported to have a Home Health RN as well who makes daily visits. SW provided supportive counseling to address patients issues of loss related to her hospitalization. SW engaged in active listening. SW addressed issues of loss related to decline in functioning.
[2016-09-01] MEDS: MONTELUKAST SODIUM 10 MG TABLET PO SCH (17:30)
[2016-09-01 18:39] LABS: *BILIRUBIN,URIN NEGATIVE (NEGATIVE); *BLOOD, URINE 3+ (NEGATIVE); *CLARITY,URINE CLOUDY (CLEAR); *COLOR,URINE YELLOW (YELLOW); *KETONES,URINE NEGATIVE (NEGATIVE); *PROTEIN,URINE 1+ (NEGATIVE); *UROBILINOGEN,URINE 0.2 E.U./dl (NORMAL); LEUKOCYTE ESTERASE ,URINE 3+ (NEGATIVE); NITRITE, URINE NEGATIVE (NEGATIVE); PH,URINE 6.5 (5.0-8.0); UGLUCOSE NEGATIVE (NEGATIVE)
[2016-09-01 18:45] LABS: BACTERIA,URINE FEW /HPF (NONE SEEN); RBC,URINE 20-50 /HPF (0-3); SQUAMOUS EPITHELIAL CELL,UR FEW /HPF (NONE SEEN); WBC,URINE 20-50 /HPF (0-3)
--- NOTE | 2016-09-01 20:00 | NUR ---
PATIENT AWAKE IN BED. A/O X3. ARMENIAN SPEAKING BUT ABLE TO MAKE NEEDS KNOWN. ASSISTED PATIENT TO BATHROOM. AMBULATES WELL WITH FWW. VS WNL. DENIES PAIN OR DISCOMFORT. NO RESP. DISTRESS NOTED. BED ALARM ON. CALL LIGHT IN REACH. ALL NEEDS ATTENDED. WILL CONTINUE TO MONITOR.
[2016-09-01] MEDS: MAGNESIUM OXIDE 400 MG TABLET PO SCH (20:17)
[2016-09-01] MEDS: TRAZODONE 50 MG TABLET PO SCH (20:17)
[2016-09-01 21:35] VITALS: BP 108/66
[2016-09-02] MEDS: ACETAMINOPHEN/CODEINE 300-30 MG TABLET PO PRN (03:05)
--- NOTE | 2016-09-02 05:58 | NUR ---
PATIENT AWAKE IN BED, WATCHING TV. SLEPT AT SMALL INTERVALS. DENIES PAIN. BED ALARM ON. CALL LIGHT IN REACH. ALL NEEDS ATTENDED. WILL CONTINUE TO MONITOR AND ASSESS.
[2016-09-02] MEDS: SUCRALFATE 1 G/10 ML LIQUID UDC PO SCH ×3 (06:31→17:28)
[2016-09-02] MEDS: PANTOPRAZOLE SODIUM 40 MG TABLET.DR PO SCH (06:31)
--- NOTE | 2016-09-02 07:00 | NUR ---
Seen patient lying in bed almost flat in position (pt preferred).Aox3 ambulates to bathroom w/ standby assistance.Responsive and coherent, vietnamese speaking, can understand minimal peruvian. Addendum: 09/03/16 at 0129 by RUSS MOREJON RN Time written: [id number] Seen patient lying in bed almost flat in position (pt preferred).Aox3 ambulates to bathroom w/ standby assistance.Responsive and coherent, vietnamese speaking, can understand minimal peruvian.Denies any discomfort.
[2016-09-02 08:04] LABS: BASOPHILS # (AUTO) 0.1 K/uL (0.0-8.0); BASOPHILS % (AUTO) 0.7 % (0.0-2.0); EOSINOPHILS # (AUTO) 0.2 K/uL (0.0-0.7); EOSINOPHILS % (AUTO) 2.9 % (0.0-7.0); HEMOGLOBIN 12.2 G/DL (12.0-16.0); LYMPHOCYTES # (AUTO) 2.4 K/UL (0.8-4.8); LYMPHOCYTES % (AUTO) 30.2 % (20.5-51.5); MEAN CORPUSCULAR HEMOGLOBIN 28.8 UUG (27.0-31.0); MEAN CORPUSCULAR HGB CONC 34 g/dL (32.0-37.0); MEAN CORPUSCULAR VOLUME 85.2 FL (81.0-99.0); MONOCYTES # (AUTO) 0.6 K/UL (0.1-1.30); NEUTROPHILS # (AUTO) 4.6 K/UL (1.8-8.9); NEUTROPHILS % (AUTO) 59.2 % (38.5-71.5); PLATELET COUNT (AUTO) 485 K/UL (150-450); RED BLOOD CELL COUNT(AUTO) 4.23 MIL/UL (4.2-5.4); WHITE BLOOD COUNT (AUTO) 7.9 K/UL (4.0-11.2)
[2016-09-02] MEDS: ASPIRIN 325 MG TABLET PO SCH (08:11)
[2016-09-02] MEDS: CALCIUM CARB/VITAMIN D 500MG-200UNITS TABLET PO SCH ×2 (08:11→17:28)
[2016-09-02] MEDS: QUETIAPINE FUMARATE 25 MG TABLET PO SCH (08:12)
[2016-09-02] MEDS: SIMVASTATIN 10 MG TABLET PO SCH (08:12)
[2016-09-02] MEDS: VALSARTAN 160 MG TABLET PO SCH ×2 (08:12→20:46)
[2016-09-02] MEDS: NIFEdipine XL 30 MG TABSR PO SCH ×2 (08:12→20:46)
[2016-09-02] MEDS: MECLIZINE HCL 25 MG TABLET PO SCH ×4 (08:12→20:42)
[2016-09-02] MEDS: ERYTHROMYCIN ETHYLSUCC 200 MG/5 ML SUSPENSION 100ML PO SCH ×2 (08:13→20:43)
[2016-09-02] MEDS: FLUTICASONE/VILANTEROL 1 EACH BLST.W.DEV INH SCH (08:13)
[2016-09-02 08:19] LABS: ALANINE AMINOTRANSFERASE 25 U/L (14-59); ALKALINE PHOSPHATASE 90 U/L (50-136); ASPARTATE AMINOTRANSFERASE 26 U/L (15-37); BILIRUBIN,TOTAL 0.3 mg/dL (0.2-1.0); CARBON DIOXIDE 31 mmol/L (21-32); CHLORIDE 99 mmol/L (98-107); CREATININE 0.9 mg/dL (0.6-1.3); GLUCOSE 113 mg/dL (74-106); MAGNESIUM 1.9 mg/dL (1.8-2.4); PHOSPHOROUS 3.3 mg/dL (2.5-4.9); POTASSIUM 4.1 mmol/L (3.5-5.1); TOTAL PROTEIN, SERUM 6.8 g/dL (6.4-8.2); UREA NITROGEN, BLOOD 12 mg/dL (7-18)
--- NOTE | 2016-09-02 13:21 | NUR ---
Dr. Camargo paged in regard to patient UA results. states he will wait for sensitivity before ordering antibiotics.
[2016-09-02] MEDS: MONTELUKAST SODIUM 10 MG TABLET PO SCH (17:28)
[2016-09-02 18:45] VITALS: BP 105/68
[2016-09-02] MEDS: TRAZODONE 50 MG TABLET PO SCH (20:42)
[2016-09-02] MEDS: MAGNESIUM OXIDE 400 MG TABLET PO SCH (20:42)
--- NOTE | 2016-09-02 22:00 | NUR ---
Made pt comfortable, getting ready for sleep, turned and repositioned, pt can help in pulling up herself in bed.Denies any discomfort, given all due meds including erythromycin abx suspension.
--- NOTE | 2016-09-03 | NUR ---
Sleeping well, breathing normally, continue monitor.
[2016-09-03] MEDS: PANTOPRAZOLE SODIUM 40 MG TABLET.DR PO SCH (06:36)
[2016-09-03] MEDS: SUCRALFATE 1 G/10 ML LIQUID UDC PO SCH ×3 (06:36→16:49)
[2016-09-03] MEDS: ACETAMINOPHEN/CODEINE 300-30 MG TABLET PO PRN (06:45)
--- NOTE | 2016-09-03 07:00 | NUR ---
Awake, am care done, ambulated to bathroom, report to DALILA Marie
[2016-09-03] MEDS: ASPIRIN 325 MG TABLET PO SCH (07:59)
[2016-09-03] MEDS: ERYTHROMYCIN ETHYLSUCC 200 MG/5 ML SUSPENSION 100ML PO SCH ×2 (07:59→21:44)
[2016-09-03] MEDS: MECLIZINE HCL 25 MG TABLET PO SCH ×4 (08:00→21:30)
[2016-09-03] MEDS: VALSARTAN 160 MG TABLET PO SCH ×2 (08:00→21:36)
[2016-09-03] MEDS: SIMVASTATIN 10 MG TABLET PO SCH (08:00)
[2016-09-03] MEDS: QUETIAPINE FUMARATE 25 MG TABLET PO SCH (08:00)
[2016-09-03] MEDS: NIFEdipine XL 30 MG TABSR PO SCH ×2 (08:01→21:36)
[2016-09-03] MEDS: CALCIUM CARB/VITAMIN D 500MG-200UNITS TABLET PO SCH ×2 (08:01→16:49)
[2016-09-03] MEDS: FLUTICASONE/VILANTEROL 1 EACH BLST.W.DEV INH SCH (08:01)
[2016-09-03 08:13] LABS: BASOPHILS % (AUTO) 0.5 % (0.0-2.0); EOSINOPHILS # (AUTO) 0.2 K/uL (0.0-0.7); EOSINOPHILS % (AUTO) 2.6 % (0.0-7.0); HEMATOCRIT 36.2 % (37-47); HEMOGLOBIN 12.1 G/DL (12.0-16.0); LYMPHOCYTES % (AUTO) 23.7 % (20.5-51.5); MEAN CORPUSCULAR HEMOGLOBIN 28.3 UUG (27.0-31.0); MEAN CORPUSCULAR HGB CONC 33 g/dL (32.0-37.0); MONOCYTES # (AUTO) 0.7 K/UL (0.1-1.30); MONOCYTES % (AUTO) 7.9 % (0.0-11.0); NEUTROPHILS # (AUTO) 5.4 K/UL (1.8-8.9); NEUTROPHILS % (AUTO) 65.3 % (38.5-71.5); PLATELET COUNT (AUTO) 476 K/UL (150-450); RED BLOOD CELL COUNT(AUTO) 4.26 MIL/UL (4.2-5.4); WHITE BLOOD COUNT (AUTO) 8.3 K/UL (4.0-11.2)
[2016-09-03 08:53] VITALS: BP 111/63
--- NOTE | 2016-09-03 10:55 | NUR ---
WOUND CARE CONSULT PATIENT SEEN AND SKIN INTEGRITY ASSESSMENT DONE. PATIENT PRESENTS WITH INTACT SKIN AT THIS TIME, NO SACRAL REDNESS NOTED, PATIENT AMBULATORY AND INDEPENDENT WITH BED MOBILITY AND CONTINENT. WILL SEE PRN. CURRENT RHONDA AT 20. WILL SEE PRN.
--- NOTE | 2016-09-03 11:50 | NUR ---
Pt alert and oriented able to verbalized needs. health teaching done regarding the use of antibiotics, cefazolin, pt verbalized understanding. Pharmacy called and verified the allergy, pharmacy approved and MD aware advised to run for 2 hrs.
[2016-09-03] MEDS: CEFAZOLIN 1 G in PREMIXED 1 EACH IV SCH ×2 (11:56→13:27)
--- NOTE | 2016-09-03 13:34 | NUR ---
paged regarding the abx is not yet hangged due to IV not infusing well. Two nurses attempted to insert an IV using aseptic techniques. Pt refused to put another IV on her. Health teaching done. pt still refused. CN and house sup aware
--- NOTE | 2016-09-03 14:30 | NUR ---
MD Kerns order to D/C IV medication and change it to Keflex 500mg TID, order carried out. pharmacy notified.
[2016-09-03] MEDS: CEPHALEXIN MONOHYDRATE 500 MG CAPSULE PO SCH (16:49)
--- NOTE | 2016-09-03 17:00 | NUR ---
Keflex given to the patient as MD ordered. No complaints at this time, breathing equal and unlabored. Denies pain and discomfort. Will continue to monitor
[2016-09-03] MEDS: MONTELUKAST SODIUM 10 MG TABLET PO SCH (17:52)
--- NOTE | 2016-09-03 19:30 | NUR ---
Patient received in bed. Alert and verbally responsive. Able to make needs known. Denies any pain and discomfort at this time. No acute distress. No SOB. Kept clean and dry. All needs attended to promptly. Call light within reach. Will continue to monitor.
[2016-09-03] MEDS: TRAZODONE 50 MG TABLET PO SCH (21:30)
[2016-09-03 21:38] VITALS: BP 114/64
[2016-09-03] MEDS: MAGNESIUM OXIDE 400 MG TABLET PO SCH (21:38)
[2016-09-04] MEDS: SUCRALFATE 1 G/10 ML LIQUID UDC PO SCH ×3 (06:38→17:11)
[2016-09-04] MEDS: PANTOPRAZOLE SODIUM 40 MG TABLET.DR PO SCH (06:38)
--- NOTE | 2016-09-04 06:52 | NUR ---
Patient awake at this time. No c/o pain and discomfort. No acute distress. 7am meds given. Slept comfortably throughout the night. All needs attended to promptly. Call light within reach. Will continue to monitor.
[2016-09-04 08:09] VITALS: BP 114/67
[2016-09-04] MEDS: VALSARTAN 160 MG TABLET PO SCH ×2 (08:54→20:40)
[2016-09-04] MEDS: SIMVASTATIN 10 MG TABLET PO SCH (08:54)
[2016-09-04] MEDS: QUETIAPINE FUMARATE 25 MG TABLET PO SCH (08:54)
[2016-09-04] MEDS: CALCIUM CARB/VITAMIN D 500MG-200UNITS TABLET PO SCH ×2 (08:54→17:11)
[2016-09-04] MEDS: ASPIRIN 325 MG TABLET PO SCH (08:54)
[2016-09-04] MEDS: CEPHALEXIN MONOHYDRATE 500 MG CAPSULE PO SCH ×2 (08:54→12:07)
[2016-09-04] MEDS: FLUTICASONE/VILANTEROL 1 EACH BLST.W.DEV INH SCH (08:55)
[2016-09-04] MEDS: NIFEdipine XL 30 MG TABSR PO SCH ×2 (08:55→20:40)
[2016-09-04] MEDS: MECLIZINE HCL 25 MG TABLET PO SCH ×4 (08:55→20:40)
[2016-09-04] MEDS: ERYTHROMYCIN ETHYLSUCC 200 MG/5 ML SUSPENSION 100ML PO SCH ×2 (09:00→20:47)
[2016-09-04] MEDS: ACETAMINOPHEN/CODEINE 300-30 MG TABLET PO PRN (09:00)
[2016-09-04] MEDS: NITROFURANTOIN/NITROFURAN MAC 100 MG CAPSULE PO SCH ×2 (09:51→20:39)
[2016-09-04] MEDS: MONTELUKAST SODIUM 10 MG TABLET PO SCH (17:23)
--- NOTE | 2016-09-04 19:20 | NUR ---
RECEIVED PATIENT IN BED, NO SOB NO CHEST PAIN NOTED, NO COMPLAIN OF NAUSEA AT THIS TIME, CONTINENT OF BOWEL AND BLADDER, ASSISTED WITH TOILETING, NO COMPLAIN OF PAIN, CONT TO MONITOR.
--- NOTE | 2016-09-04 19:54 | NUR ---
pt had no complications during shift. pt slept interminently throughout the day. pt states that she is nauseous but no vomiting episodes. meds given and meals provided. assisted to the bathroom and helped as needed. new meds prescribed by . will endorse new developments to night cleaner nurse.
[2016-09-04 20:10] VITALS: BP 103/66
[2016-09-04] MEDS: MAGNESIUM OXIDE 400 MG TABLET PO SCH (20:39)
[2016-09-04] MEDS: TRAZODONE 50 MG TABLET PO SCH (20:41)
[2016-09-05] MEDS: SUCRALFATE 1 G/10 ML LIQUID UDC PO SCH ×3 (06:01→17:41)
[2016-09-05] MEDS: PANTOPRAZOLE SODIUM 40 MG TABLET.DR PO SCH (06:01)
[2016-09-05] MEDS: ACETAMINOPHEN/CODEINE 300-30 MG TABLET PO PRN (06:15)
--- NOTE | 2016-09-05 07:37 | NUR ---
PATIENT ALERT ORIENTED, COMPLAIN OF SHOULDER PAIN AND ARMS, GIVEN PAIN MEDS, WITH HELP AFTER ONE HOUR, SLEPT MOST OF THE NIGHT. CONT TO MONITOR.
--- NOTE | 2016-09-05 07:50 | NUR ---
Received patient awake, alert and oriented, resting in bed. No S/S of distress. No complaints of pain/ discomfort. Call light within reach. Encouraged to call for needs.
--- NOTE | 2016-09-05 08:30 | NUR ---
Up with Occupational therapy. Tolerated therapy well. VSS, afebrile. Encouraged to increase fluid intake and cranberry juice as tolerated for UTI.
[2016-09-05 08:35] VITALS: BP 126/76
[2016-09-05] MEDS: FLUTICASONE/VILANTEROL 1 EACH BLST.W.DEV INH SCH (08:56)
[2016-09-05] MEDS: MECLIZINE HCL 25 MG TABLET PO SCH ×4 (08:57→20:58)
[2016-09-05] MEDS: VALSARTAN 160 MG TABLET PO SCH ×2 (08:58→21:00)
[2016-09-05] MEDS: QUETIAPINE FUMARATE 25 MG TABLET PO SCH (08:59)
[2016-09-05] MEDS: NITROFURANTOIN/NITROFURAN MAC 100 MG CAPSULE PO SCH ×2 (08:59→20:58)
[2016-09-05] MEDS: NIFEdipine XL 30 MG TABSR PO SCH ×2 (08:59→20:59)
[2016-09-05] MEDS: SIMVASTATIN 10 MG TABLET PO SCH (09:00)
[2016-09-05] MEDS: ERYTHROMYCIN ETHYLSUCC 200 MG/5 ML SUSPENSION 100ML PO SCH ×2 (09:00→20:59)
[2016-09-05] MEDS: CALCIUM CARB/VITAMIN D 500MG-200UNITS TABLET PO SCH ×2 (09:00→17:41)
[2016-09-05] MEDS: ASPIRIN 325 MG TABLET PO SCH (09:04)
[2016-09-05] MEDS: MONTELUKAST SODIUM 10 MG TABLET PO SCH (17:41)
--- NOTE | 2016-09-05 18:07 | NUR ---
Patient resting in bed. No complaints of pain. Attended to needs promptly throughout the shift.
--- NOTE | 2016-09-05 19:30 | NUR ---
Received patient in bed asleep. No acute distress noted. Sleeping comfortably. All needs attended to promptly. Call light within reach. Will continue to monitor.
[2016-09-05 19:53] VITALS: BP 101/61
[2016-09-05] MEDS: MAGNESIUM OXIDE 400 MG TABLET PO SCH (20:57)
[2016-09-05] MEDS: TRAZODONE 50 MG TABLET PO SCH (20:58)
[2016-09-06] MEDS: ACETAMINOPHEN/CODEINE 300-30 MG TABLET PO PRN ×2 (04:30→12:10)
[2016-09-06] MEDS: PANTOPRAZOLE SODIUM 40 MG TABLET.DR PO SCH (06:39)
[2016-09-06] MEDS: SUCRALFATE 1 G/10 ML LIQUID UDC PO SCH ×3 (06:40→17:35)
--- NOTE | 2016-09-06 06:42 | NUR ---
Patient awake. Slept comfortably throughout the night. 7am medication given. Tolerated well. No c/o pain at this time. No acute distress. All needs attended to promptly. Call light within reach. Will continue to monitor.
--- NOTE | 2016-09-06 07:42 | NUR ---
Received patient awake, resting in bed. Alert and oriented x4. Not in any form of distress. No complaints of pain or discomfort. Call light within reach. Encouraged to call for needs.
[2016-09-06 07:56] VITALS: BP 128/78
[2016-09-06] MEDS: NITROFURANTOIN/NITROFURAN MAC 100 MG CAPSULE PO SCH ×2 (09:24→20:15)
[2016-09-06] MEDS: ASPIRIN 325 MG TABLET PO SCH (09:24)
[2016-09-06] MEDS: SIMVASTATIN 10 MG TABLET PO SCH (09:24)
[2016-09-06] MEDS: ERYTHROMYCIN ETHYLSUCC 200 MG/5 ML SUSPENSION 100ML PO SCH ×2 (09:24→20:16)
[2016-09-06] MEDS: VALSARTAN 160 MG TABLET PO SCH ×2 (09:24→20:19)
[2016-09-06] MEDS: CALCIUM CARB/VITAMIN D 500MG-200UNITS TABLET PO SCH ×2 (09:25→17:36)
[2016-09-06] MEDS: NIFEdipine XL 30 MG TABSR PO SCH ×2 (09:25→20:20)
[2016-09-06] MEDS: MECLIZINE HCL 25 MG TABLET PO SCH ×4 (09:25→20:15)
[2016-09-06] MEDS: QUETIAPINE FUMARATE 25 MG TABLET PO SCH (09:25)
[2016-09-06] MEDS: FLUTICASONE/VILANTEROL 1 EACH BLST.W.DEV INH SCH (09:26)
--- NOTE | 2016-09-06 12:11 | NUR ---
Complained of pain over back and shoulders rated as 8/10. PRN pain medication given.
--- NOTE | 2016-09-06 15:45 | NUR ---
PATIENT RESTING IN BED. NO OTHER COMPLAINTS OF PAIN AT THE MOMENT. WITH FAMILY AT BEDSIDE.
[2016-09-06] MEDS: MONTELUKAST SODIUM 10 MG TABLET PO SCH (17:36)
--- NOTE | 2016-09-06 19:53 | NUR ---
Received patient in bed. Alert and Oriented. Able to make needs known. Denies any pain and discomfort. No acute distress. No SOB. Assisted to bathroom. Still noted with dysuria. Pericare provided. Patient on ABX for UTI. Kept clean and dry. All needs attended to promptly. Call light within reach. Will continue to monitor.
[2016-09-06] MEDS: MAGNESIUM OXIDE 400 MG TABLET PO SCH (20:15)
[2016-09-06] MEDS: TRAZODONE 50 MG TABLET PO SCH (20:16)
[2016-09-06 20:21] VITALS: BP 101/60
[2016-09-07] MEDS: ACETAMINOPHEN/CODEINE 300-30 MG TABLET PO PRN (02:02)
[2016-09-07] MEDS: SUCRALFATE 1 G/10 ML LIQUID UDC PO SCH ×3 (06:36→16:35)
[2016-09-07] MEDS: PANTOPRAZOLE SODIUM 40 MG TABLET.DR PO SCH (06:36)
--- NOTE | 2016-09-07 06:38 | NUR ---
Patient awake. Slept comfortably throughout the night. 7am meds given. Tolerated well. Kept clean and dry. All needs attended to promptly. Call light within reach. Will continue to monitor.
[2016-09-07 07:30] VITALS: BP 123/69
[2016-09-07] MEDS: MECLIZINE HCL 25 MG TABLET PO SCH ×4 (08:37→21:11)
[2016-09-07] MEDS: CALCIUM CARB/VITAMIN D 500MG-200UNITS TABLET PO SCH ×2 (08:37→16:36)
[2016-09-07] MEDS: ASPIRIN 325 MG TABLET PO SCH (08:37)
[2016-09-07] MEDS: ERYTHROMYCIN ETHYLSUCC 200 MG/5 ML SUSPENSION 100ML PO SCH ×2 (08:37→21:19)
[2016-09-07] MEDS: NITROFURANTOIN/NITROFURAN MAC 100 MG CAPSULE PO SCH ×2 (08:37→21:11)
[2016-09-07] MEDS: QUETIAPINE FUMARATE 25 MG TABLET PO SCH (08:37)
[2016-09-07] MEDS: SIMVASTATIN 10 MG TABLET PO SCH (08:37)
[2016-09-07] MEDS: FLUTICASONE/VILANTEROL 1 EACH BLST.W.DEV INH SCH (08:38)
[2016-09-07] MEDS: NIFEdipine XL 30 MG TABSR PO SCH ×2 (08:38→21:11)
[2016-09-07] MEDS: VALSARTAN 160 MG TABLET PO SCH ×2 (08:38→21:12)
[2016-09-07] MEDS: MONTELUKAST SODIUM 10 MG TABLET PO SCH (16:53)
--- NOTE | 2016-09-07 19:37 | NUR ---
pt complained of throat. pt provided meds as ordered. no signs of acute distress. meds provided. pt tolerated therapy and had shower today. no complications. will endorse new orders to maintenance supervisor 2nd shift nurse.
[2016-09-07 20:00] VITALS: BP 113/64
--- NOTE | 2016-09-07 20:17 | NUR ---
SEEN BY MARLA GALVAN WITH ORDER, NOTED AND CARRIED OUT.
[2016-09-07 20:43] LABS: *BILIRUBIN,URIN NEGATIVE (NEGATIVE); *BLOOD, URINE 2+ (NEGATIVE); *CLARITY,URINE CLOUDY (CLEAR); *COLOR,URINE YELLOW (YELLOW); *KETONES,URINE NEGATIVE (NEGATIVE); *PROTEIN,URINE TRACE (NEGATIVE); *UROBILINOGEN,URINE 0.2 E.U./dl (NORMAL); LEUKOCYTE ESTERASE ,URINE 3+ (NEGATIVE); NITRITE, URINE NEGATIVE (NEGATIVE); UGLUCOSE NEGATIVE (NEGATIVE)
[2016-09-07 20:50] LABS: BACTERIA,URINE FEW /HPF (NONE SEEN); SQUAMOUS EPITHELIAL CELL,UR FEW /HPF (NONE SEEN); WBC,URINE 80-100 /HPF (0-3)
[2016-09-07] MEDS: MAGNESIUM OXIDE 400 MG TABLET PO SCH (21:11)
[2016-09-07] MEDS: TRAZODONE 50 MG TABLET PO SCH (21:13)
--- NOTE | 2016-09-08 05:43 | NUR ---
PATIENT SLEPT MOST OF THE NIGHT, NO SOB NO CHEST PAIN, ASSISTED WITH TOILETING, KEPT CLEAN AND DRY, CALL LIGHT WITHIN REACH.
[2016-09-08] MEDS: SUCRALFATE 1 G/10 ML LIQUID UDC PO SCH ×3 (06:00→17:10)
[2016-09-08] MEDS: PANTOPRAZOLE SODIUM 40 MG TABLET.DR PO SCH (06:00)
[2016-09-08 07:06] VITALS: BP 121/75
--- NOTE | 2016-09-08 08:15 | NUR ---
RECEIVED PATIENT RESTING IN BED. AWAKE, ALERT AND ORIENTED. NO COMPLAINTS OF PAIN AT THIS TIME. NOT IN ANY FORM OF DISTRESS. CALL LIGHT WITHIN REACH. ENCOURAGED TO CALL FOR NEEDS.
[2016-09-08] MEDS: ERYTHROMYCIN ETHYLSUCC 200 MG/5 ML SUSPENSION 100ML PO SCH ×2 (09:18→21:10)
[2016-09-08] MEDS: MECLIZINE HCL 25 MG TABLET PO SCH ×4 (09:19→21:10)
[2016-09-08] MEDS: CALCIUM CARB/VITAMIN D 500MG-200UNITS TABLET PO SCH ×2 (09:19→17:10)
[2016-09-08] MEDS: QUETIAPINE FUMARATE 25 MG TABLET PO SCH (09:19)
[2016-09-08] MEDS: ASPIRIN 325 MG TABLET PO SCH (09:19)
[2016-09-08] MEDS: FLUTICASONE/VILANTEROL 1 EACH BLST.W.DEV INH SCH (09:19)
[2016-09-08] MEDS: VALSARTAN 160 MG TABLET PO SCH ×2 (09:19→21:13)
[2016-09-08] MEDS: NITROFURANTOIN/NITROFURAN MAC 100 MG CAPSULE PO SCH ×2 (09:19→21:10)
[2016-09-08] MEDS: NIFEdipine XL 30 MG TABSR PO SCH ×2 (09:20→21:10)
[2016-09-08] MEDS: SIMVASTATIN 10 MG TABLET PO SCH (09:20)
[2016-09-08] MEDS: ACETAMINOPHEN/CODEINE 300-30 MG TABLET PO PRN (15:34)
--- NOTE | 2016-09-08 15:34 | NUR ---
COMPLAINED OF GENERALIZED PAIN OVER BACK AND SHOULDERS RATED 8/10. PRN PAIN MEDICATIONS GIVEN
[2016-09-08] MEDS: MONTELUKAST SODIUM 10 MG TABLET PO SCH (17:10)
--- NOTE | 2016-09-08 19:20 | NUR ---
PATIENT ALERT ORIENTED, NO SOB NO CHEST PAIN, NO COMPLAIN OF PAIN AT THIS TIME, CONTINENT OF BOWEL AND BLADDER, CONT TO MONITOR.
[2016-09-08 20:00] VITALS: BP 108/67
[2016-09-08] MEDS: TRAZODONE 50 MG TABLET PO SCH (21:10)
[2016-09-08] MEDS: MAGNESIUM OXIDE 400 MG TABLET PO SCH (21:10)
--- NOTE | 2016-09-09 05:39 | NUR ---
PATIENT SLEPT MOST OF THE NIGHT, ASSISTED WITH TOILETING, CONTINENT OF BOWEL AND BLADDER, NO SOB NO CHEST PAIN, CONT TO MONITOR.
[2016-09-09] MEDS: PANTOPRAZOLE SODIUM 40 MG TABLET.DR PO SCH (06:10)
[2016-09-09] MEDS: SUCRALFATE 1 G/10 ML LIQUID UDC PO SCH ×3 (06:10→18:03)
[2016-09-09 08:06] VITALS: BP 106/70
--- NOTE | 2016-09-09 08:45 | NUR ---
RECEIVED PATIENT AWAKE, GETTING READY FOR THERAPY. ALERT AND ORIENTED. X4. NO COMPLAINTS OF PAIN. NOT IN ANY FORM OF DISTRESS. STILL WITH DYSURIA, OFFERED CRANBERRY JUICE.
[2016-09-09] MEDS: NIFEdipine XL 30 MG TABSR PO SCH ×2 (09:00→20:43)
[2016-09-09] MEDS: VALSARTAN 160 MG TABLET PO SCH ×2 (09:00→20:43)
[2016-09-09] MEDS: FLUTICASONE/VILANTEROL 1 EACH BLST.W.DEV INH SCH (09:44)
[2016-09-09] MEDS: ASPIRIN 325 MG TABLET PO SCH (09:47)
[2016-09-09] MEDS: CALCIUM CARB/VITAMIN D 500MG-200UNITS TABLET PO SCH ×2 (09:47→18:03)
[2016-09-09] MEDS: QUETIAPINE FUMARATE 25 MG TABLET PO SCH (09:47)
[2016-09-09] MEDS: SIMVASTATIN 10 MG TABLET PO SCH (09:47)
[2016-09-09] MEDS: NITROFURANTOIN/NITROFURAN MAC 100 MG CAPSULE PO SCH ×2 (09:47→20:42)
[2016-09-09] MEDS: MECLIZINE HCL 25 MG TABLET PO SCH ×4 (09:47→20:41)
[2016-09-09] MEDS: ERYTHROMYCIN ETHYLSUCC 200 MG/5 ML SUSPENSION 100ML PO SCH ×2 (09:49→21:39)
--- NOTE | 2016-09-09 14:21 | NUR ---
REHAB TEAM CONFERENCE 09/09/16
[2016-09-09] MEDS: MONTELUKAST SODIUM 10 MG TABLET PO SCH (18:03)
--- NOTE | 2016-09-09 18:57 | NUR ---
Tolerated therapy well. Attended to needs promptly. No complaints of pain. Call light within reach
[2016-09-09] MEDS: ACETAMINOPHEN/CODEINE 300-30 MG TABLET PO PRN (20:40)
[2016-09-09] MEDS: MAGNESIUM OXIDE 400 MG TABLET PO SCH (20:41)
[2016-09-09] MEDS: TRAZODONE 50 MG TABLET PO SCH (20:41)
[2016-09-09 20:44] VITALS: BP 97/57
[2016-09-10] MEDS: SUCRALFATE 1 G/10 ML LIQUID UDC PO SCH ×2 (06:30→11:33)
[2016-09-10] MEDS: PANTOPRAZOLE SODIUM 40 MG TABLET.DR PO SCH (06:30)
--- NOTE | 2016-09-10 06:30 | NUR ---
pt doing well overnight given tylenol #3 for headache and body ache with good relief, slept well, no bm, brp with fww ,bed alarm at all times,no significant changes,bp meds not given ,bp wnl.will continue to monitor.all needs attended.
[2016-09-10] MEDS: FLUTICASONE/VILANTEROL 1 EACH BLST.W.DEV INH SCH (08:07)
[2016-09-10] MEDS: SIMVASTATIN 10 MG TABLET PO SCH (08:08)
[2016-09-10] MEDS: CALCIUM CARB/VITAMIN D 500MG-200UNITS TABLET PO SCH (08:08)
[2016-09-10] MEDS: NIFEdipine XL 30 MG TABSR PO SCH (08:08)
[2016-09-10] MEDS: ASPIRIN 325 MG TABLET PO SCH (08:08)
[2016-09-10] MEDS: MECLIZINE HCL 25 MG TABLET PO SCH ×2 (08:08→12:05)
[2016-09-10] MEDS: VALSARTAN 160 MG TABLET PO SCH (08:08)
[2016-09-10] MEDS: QUETIAPINE FUMARATE 25 MG TABLET PO SCH (08:08)
[2016-09-10] MEDS: NITROFURANTOIN/NITROFURAN MAC 100 MG CAPSULE PO SCH (08:08)
[2016-09-10] MEDS: ERYTHROMYCIN ETHYLSUCC 200 MG/5 ML SUSPENSION 100ML PO SCH (08:09)
[2016-09-10 08:56] VITALS: BP 132/72
--- NOTE | 2016-09-10 15:14 | NUR ---
pt left 1445 on wheelchair. pt given discharge instructions along with presriptions . exitcare utillized, with topics such as smoking cessation, asthma information, and prevention of hypertension. family understands instrucstions tips. pt signed instructions and were instructed on continuity of care as ordered by disability case manager. pt assisted to the car. pt without complications and vitals were stable.
== END 2016-09-10 14:45 | disposition home health service (06) | DRG 190 ==
PROVIDERS: ADMIT Internal Medicine; ATTEND Internal Medicine
DX: J44.1 Chronic obstructive pulmonary disease with (acute) exacerbation (principal); J96.90 Respiratory failure, unspecified, unspecified whether with hypoxia or hypercapnia; R53.2 Functional quadriplegia; I13.0 Hypertensive heart and chronic kidney disease with heart failure and stage 1 through stage 4 chronic kidney disease, or unspecified chronic kidney disease; E22.2 Syndrome of inappropriate secretion of antidiuretic hormone; N39.0 Urinary tract infection, site not specified; J98.11 Atelectasis; F03.90 Unspecified dementia, unspecified severity, without behavioral disturbance, psychotic disturbance, mood disturbance, and anxiety; I50.9 Heart failure, unspecified; K21.9 Gastro-esophageal reflux disease without esophagitis; K29.60 Other gastritis without bleeding; N18.9 Chronic kidney disease, unspecified; E11.22 Type 2 diabetes mellitus with diabetic chronic kidney disease; M17.10 Unilateral primary osteoarthritis, unspecified knee; B96.20 Unspecified Escherichia coli [E. coli] as the cause of diseases classified elsewhere; D64.9 Anemia, unspecified; E83.39 Other disorders of phosphorus metabolism; D75.89 Other specified diseases of blood and blood-forming organs; E78.5 Hyperlipidemia, unspecified; R13.19 Other dysphagia; R13.10 Dysphagia, unspecified; B95.2 Enterococcus as the cause of diseases classified elsewhere; K29.70 Gastritis, unspecified, without bleeding; K44.9 Diaphragmatic hernia without obstruction or gangrene; N39.3 Stress incontinence (female) (male); R30.0 Dysuria; M54.6 Pain in thoracic spine; M25.512 Pain in left shoulder; M25.511 Pain in right shoulder; K22.70 Barrett's esophagus without dysplasia; R93.3 Abnormal findings on diagnostic imaging of other parts of digestive tract; D47.3 Essential (hemorrhagic) thrombocythemia; D72.829 Elevated white blood cell count, unspecified; Z88.0 Allergy status to penicillin
CPT/HCPCS: 36415; 83735; 84100; 85025; 87077; 87086; 92610; 97110; 97112; 97116; 97161; 97165; 97530; 97535; A4663; J0690; J3490; J7040; J8597

== ENCOUNTER 2016-09-15 18:10 | Inpatient (IN) | payer MEDICARE, MEDICAID ==
[~2016-09-15] VITALS: Ht 152.4 cm; Wt 62.6 kg
[2016-09-15] MEDS ORDERED: ONDA4TAB5 PO (18:32)
[2016-09-15] MEDS ORDERED: DICL100T2 TOP (18:32)
[2016-09-15] MEDS ORDERED: TRAZ150T75 PO (18:32)
[2016-09-15] MEDS ORDERED: FLUT100B3 IH (18:32)
[2016-09-15 19:15] LABS: BASOPHILS # (AUTO) 0.1 K/uL (0.0-8.0); BASOPHILS % (AUTO) 1.2 % (0.0-2.0); EOSINOPHILS # (AUTO) 0.1 K/uL (0.0-0.7); EOSINOPHILS % (AUTO) 0.6 % (0.0-7.0); HEMATOCRIT 28.3 % (37-47); HEMOGLOBIN 9.6 G/DL (12.0-16.0); LYMPHOCYTES # (AUTO) 1.1 K/UL (0.8-4.8); LYMPHOCYTES % (AUTO) 11.6 % (20.5-51.5); MEAN CORPUSCULAR HEMOGLOBIN 28.4 UUG (27.0-31.0); MEAN CORPUSCULAR HGB CONC 34 g/dL (32.0-37.0); MONOCYTES # (AUTO) 0.9 K/UL (0.1-1.30); MONOCYTES % (AUTO) 9.9 % (0.0-11.0); NEUTROPHILS # (AUTO) 7.3 K/UL (1.8-8.9); NEUTROPHILS % (AUTO) 76.7 % (38.5-71.5); PLATELET COUNT (AUTO) 386 K/UL (150-450); RED BLOOD CELL COUNT(AUTO) 3.36 MIL/UL (4.2-5.4); WHITE BLOOD COUNT (AUTO) 9.5 K/UL (4.0-11.2)
[2016-09-15 19:44] LABS: ALANINE AMINOTRANSFERASE 19 U/L (14-59); ALKALINE PHOSPHATASE 77 U/L (50-136); ASPARTATE AMINOTRANSFERASE 29 U/L (15-37); BILIRUBIN,DIRECT 0.1 mg/dL (0.0-0.2); BILIRUBIN,TOTAL 0.4 mg/dL (0.2-1.0); CARBON DIOXIDE 21 mmol/L (21-32); CREATININE 0.7 mg/dL (0.6-1.3); GLUCOSE 152 mg/dL (74-106); POTASSIUM 4.1 mmol/L (3.5-5.1); TOTAL PROTEIN, SERUM 6.1 g/dL (6.4-8.2); UREA NITROGEN, BLOOD 5 mg/dL (7-18)
[2016-09-15 19:48] LABS: CHLORIDE 79 mmol/L (98-107)
[2016-09-15 19:58] LABS: ABG BASE EXCESS 0.6 mmol/L; ABG HCO3 22.9 mmol/L; ABG PCO2 30.5 mmHg (35.0-45.0); ABG PH 7.493 (7.350-7.450); ABG PO2 80.5 mmHg (75.0-100.0); ABG SITE LEFT RADIAL; VENT MODE ROOM AIR
[2016-09-15] MEDS ORDERED: AZTREONAM 1 G VIAL IV ONE (20:30)
[2016-09-15] MEDS ORDERED: CLINDAMYCIN PHOSPHATE IV 600 MG in IV DEXTROSE 5% 100 ML IV ONE (20:30)
[2016-09-15] MEDS ORDERED: GENTAMICIN SULFATE INJ 80 MG in IV DEXTROSE 5% 100 ML IV ONE (20:45)
[2016-09-15] MEDS ORDERED: CLINDAMYCIN PHOSPHATE 600 MG/4 ML VIAL ONE (20:52)
[2016-09-15] MEDS ORDERED: AZTREONAM 1 G VIAL ONE (20:53)
[2016-09-15 21:13] LABS: *BILIRUBIN,URIN NEGATIVE (NEGATIVE); *BLOOD, URINE 2+ (NEGATIVE); *CLARITY,URINE SLIGHTLY CLOUDY (CLEAR); *COLOR,URINE YELLOW (YELLOW); *KETONES,URINE NEGATIVE (NEGATIVE); *PROTEIN,URINE TRACE (NEGATIVE); *UROBILINOGEN,URINE 0.2 E.U./dl (NORMAL); LEUKOCYTE ESTERASE ,URINE 1+ (NEGATIVE); NITRITE, URINE NEGATIVE (NEGATIVE); PH,URINE 5.5 (5.0-8.0); UGLUCOSE NEGATIVE (NEGATIVE)
[2016-09-15 21:30] LABS: BACTERIA,URINE MANY /HPF (NONE SEEN); SQUAMOUS EPITHELIAL CELL,UR FEW /HPF (NONE SEEN)
[2016-09-15] MEDS ORDERED: GENTAMICIN SULFATE 80 MG/2 ML VIAL ONE (21:46)
[2016-09-15 22:00] VITALS: BP 111/60
[2016-09-15 23:01] LABS: CARBON DIOXIDE 25 mmol/L (21-32); CHLORIDE 83 mmol/L (98-107); CREATININE 0.8 mg/dL (0.6-1.3); GLUCOSE 162 mg/dL (74-106); POTASSIUM 3.7 mmol/L (3.5-5.1); UREA NITROGEN, BLOOD 5 mg/dL (7-18)
[2016-09-16 00:19] VITALS: BP 112/62
[2016-09-16 02:28] LABS: CARBON DIOXIDE 25 mmol/L (21-32); CHLORIDE 84 mmol/L (98-107); CREATININE 0.8 mg/dL (0.6-1.3); GLUCOSE 122 mg/dL (74-106); UREA NITROGEN, BLOOD 4 mg/dL (7-18)
[2016-09-16 04:00] VITALS: BP 123/67
[2016-09-16 05:29] VITALS: BP 123/67
[2016-09-16 05:50] LABS: BASOPHILS % (AUTO) 0.3 % (0.0-2.0); EOSINOPHILS # (AUTO) 0.2 K/uL (0.0-0.7); EOSINOPHILS % (AUTO) 2.8 % (0.0-7.0); HEMATOCRIT 27.5 % (37-47); LYMPHOCYTES # (AUTO) 1.9 K/UL (0.8-4.8); MEAN CORPUSCULAR HEMOGLOBIN 27.4 UUG (27.0-31.0); MEAN CORPUSCULAR HGB CONC 33 g/dL (32.0-37.0); MEAN CORPUSCULAR VOLUME 83.5 FL (81.0-99.0); MONOCYTES # (AUTO) 0.8 K/UL (0.1-1.30); MONOCYTES % (AUTO) 11.8 % (0.0-11.0); NEUTROPHILS % (AUTO) 58.1 % (38.5-71.5); PLATELET COUNT (AUTO) 355 K/UL (150-450); RED BLOOD CELL COUNT(AUTO) 3.29 MIL/UL (4.2-5.4); WHITE BLOOD COUNT (AUTO) 6.9 K/UL (4.0-11.2)
[2016-09-16 06:00] LABS: CARBON DIOXIDE 25 mmol/L (21-32); CHLORIDE 87 mmol/L (98-107); CREATININE 0.8 mg/dL (0.6-1.3); GLUCOSE 112 mg/dL (74-106); MAGNESIUM 1.4 mg/dL (1.8-2.4); PHOSPHOROUS 3.1 mg/dL (2.5-4.9); POTASSIUM 4.1 mmol/L (3.5-5.1); UREA NITROGEN, BLOOD 4 mg/dL (7-18)
[2016-09-16] MEDS: ACETAMINOPHEN/CODEINE 300-30 MG TABLET PO PRN (06:01)
[2016-09-16] MEDS ORDERED: ACETAMINOPHEN/CODEINE 300-30 MG TABLET ONE (06:03)
[2016-09-16 07:24] VITALS: BP 109/54
[2016-09-16] MEDS ORDERED: ONDANSETRON HCL 4 MG TABLET PO PRN (07:30)
[2016-09-16] MEDS ORDERED: ACETAMINOPHEN/CODEINE 300-30 MG TABLET PO PRN (07:30)
[2016-09-16] MEDS ORDERED: HOME MED MISCELLANEOUS XX SCH (07:30)
[2016-09-16] MEDS: ASPIRIN 325 MG TABLET PO SCH (08:39)
[2016-09-16] MEDS: MAGNESIUM OXIDE 400 MG TABLET PO SCH ×2 (08:39→18:14)
[2016-09-16] MEDS: CALCIUM CARB/VITAMIN D 500MG-200UNITS TABLET PO SCH ×2 (08:39→18:14)
[2016-09-16] MEDS: QUETIAPINE FUMARATE 25 MG TABLET PO SCH (08:39)
[2016-09-16] MEDS: SUCRALFATE 1 G/10 ML LIQUID UDC PO SCH ×3 (08:39→18:14)
[2016-09-16] MEDS: SIMVASTATIN 10 MG TABLET PO SCH (08:40)
[2016-09-16] MEDS: MECLIZINE HCL 25 MG TABLET PO SCH ×4 (08:40→20:33)
[2016-09-16] MEDS: VALSARTAN 160 MG TABLET PO SCH ×2 (08:40→20:34)
[2016-09-16] MEDS: PANTOPRAZOLE SODIUM 40 MG TABLET.DR PO SCH (08:50)
[2016-09-16] MEDS: IV NS 1000 ML 1,000 ML IV PRN ×2 (08:52→23:54)
[2016-09-16] MEDS ORDERED: FLUTICASONE/VILANTEROL 1 EACH BLST.W.DEV INH SCH (09:00)
[2016-09-16] MEDS ORDERED: FLUTICASONE/SALMETEROL 250/50 INHALER IH SCH (09:00)
[2016-09-16] MEDS ORDERED: HOME MED MISCELLANEOUS PO SCH (09:00)
[2016-09-16] MEDS ORDERED: SPIRONOLACTONE 50 MG TABLET PO SCH (09:00)
[2016-09-16] MEDS ORDERED: CLONIDINE HCL 0.3 MG TABLET PO SCH (09:00)
[2016-09-16] MEDS: FLUTICASONE/VILANTEROL 1 EACH BLST.W.DEV INH SCH (09:32)
[2016-09-16 09:49] LABS: THYROID STIMULATING HORMONE 2.235 mIU/mL (0.358-3.740)
[2016-09-16 11:27] LABS: CARBON DIOXIDE 26 mmol/L (21-32); CHLORIDE 82 mmol/L (98-107); CREATININE 0.8 mg/dL (0.6-1.3); GLUCOSE 134 mg/dL (74-106); POTASSIUM 3.5 mmol/L (3.5-5.1); UREA NITROGEN, BLOOD 5 mg/dL (7-18)
[2016-09-16] MEDS: AZTREONAM 1 G in IV NORMAL SALINE 50 ML IV SCH ×2 (13:54→21:29)
[2016-09-16 15:43] VITALS: BP 114/61
[2016-09-16 17:45] LABS: CARBON DIOXIDE 25 mmol/L (21-32); CHLORIDE 87 mmol/L (98-107); CREATININE 0.8 mg/dL (0.6-1.3); GLUCOSE 97 mg/dL (74-106); POTASSIUM 4.1 mmol/L (3.5-5.1); UREA NITROGEN, BLOOD 7 mg/dL (7-18)
[2016-09-16] MEDS: MONTELUKAST SODIUM 10 MG TABLET PO SCH (18:12)
[2016-09-16 19:00] VITALS: BP 125/60
[2016-09-16] MEDS: TRAZODONE 50 MG TABLET PO SCH (20:33)
[2016-09-17 00:05] VITALS: BP 141/55
[2016-09-17] MEDS: ACETAMINOPHEN/CODEINE 300-30 MG TABLET PO PRN (01:47)
[2016-09-17 04:00] VITALS: BP 155/60
[2016-09-17] MEDS: AZTREONAM 1 G in IV NORMAL SALINE 50 ML IV SCH ×3 (05:44→21:55)
[2016-09-17 05:47] LABS: BASOPHILS # (AUTO) 0.1 K/uL (0.0-8.0); BASOPHILS % (AUTO) 0.8 % (0.0-2.0); EOSINOPHILS # (AUTO) 0.2 K/uL (0.0-0.7); EOSINOPHILS % (AUTO) 3.2 % (0.0-7.0); HEMATOCRIT 28.9 % (37-47); HEMOGLOBIN 9.8 G/DL (12.0-16.0); LYMPHOCYTES # (AUTO) 1.7 K/UL (0.8-4.8); LYMPHOCYTES % (AUTO) 26.8 % (20.5-51.5); MEAN CORPUSCULAR HEMOGLOBIN 28.2 UUG (27.0-31.0); MEAN CORPUSCULAR HGB CONC 34 g/dL (32.0-37.0); MEAN CORPUSCULAR VOLUME 83.1 FL (81.0-99.0); MONOCYTES # (AUTO) 0.7 K/UL (0.1-1.30); MONOCYTES % (AUTO) 11.4 % (0.0-11.0); NEUTROPHILS # (AUTO) 3.8 K/UL (1.8-8.9); NEUTROPHILS % (AUTO) 57.8 % (38.5-71.5); PLATELET COUNT (AUTO) 402 K/UL (150-450); RED BLOOD CELL COUNT(AUTO) 3.47 MIL/UL (4.2-5.4); WHITE BLOOD COUNT (AUTO) 6.5 K/UL (4.0-11.2)
[2016-09-17 05:54] LABS: CARBON DIOXIDE 27 mmol/L (21-32); CHLORIDE 97 mmol/L (98-107); CREATININE 0.8 mg/dL (0.6-1.3); GLUCOSE 93 mg/dL (74-106); MAGNESIUM 1.7 mg/dL (1.8-2.4); POTASSIUM 4.1 mmol/L (3.5-5.1); UREA NITROGEN, BLOOD 7 mg/dL (7-18)
[2016-09-17] MEDS: SUCRALFATE 1 G/10 ML LIQUID UDC PO SCH ×3 (06:21→15:57)
[2016-09-17] MEDS: PANTOPRAZOLE SODIUM 40 MG TABLET.DR PO SCH (06:21)
[2016-09-17] MEDS ORDERED: Z GUARD REMEDY PASTE 57 GM TUBE TOP PRN (08:00)
[2016-09-17] MEDS: FLUTICASONE/VILANTEROL 1 EACH BLST.W.DEV INH SCH (08:09)
[2016-09-17] MEDS: ASPIRIN 325 MG TABLET PO SCH (08:09)
[2016-09-17] MEDS: QUETIAPINE FUMARATE 25 MG TABLET PO SCH (08:10)
[2016-09-17] MEDS: MAGNESIUM OXIDE 400 MG TABLET PO SCH ×2 (08:10→17:04)
[2016-09-17] MEDS: SIMVASTATIN 10 MG TABLET PO SCH (08:10)
[2016-09-17] MEDS: CALCIUM CARB/VITAMIN D 500MG-200UNITS TABLET PO SCH ×2 (08:10→17:04)
[2016-09-17] MEDS: MECLIZINE HCL 25 MG TABLET PO SCH ×4 (08:10→20:35)
[2016-09-17] MEDS: VALSARTAN 160 MG TABLET PO SCH ×2 (08:10→20:36)
[2016-09-17] MEDS: Z GUARD REMEDY PASTE 57 GM TUBE TOP SCH ×2 (10:41→20:36)
[2016-09-17 11:17] VITALS: BP 143/74
[2016-09-17] MEDS ORDERED: MAGNESIUM SULFATE/D5W 100 ML IV SCH ×2 (13:45→14:30)
[2016-09-17 15:49] VITALS: BP 139/52
[2016-09-17] MEDS: IV NS 1000 ML 1,000 ML IV PRN (15:57)
[2016-09-17] MEDS: MONTELUKAST SODIUM 10 MG TABLET PO SCH (17:04)
[2016-09-17 20:00] VITALS: BP 134/65
[2016-09-17] MEDS: TRAZODONE 50 MG TABLET PO SCH (20:36)
[2016-09-18 05:08] VITALS: BP 132/65
[2016-09-18] MEDS: IV NS 1000 ML 1,000 ML IV PRN (06:12)
[2016-09-18] MEDS: AZTREONAM 1 G in IV NORMAL SALINE 50 ML IV SCH ×3 (06:13→21:08)
[2016-09-18] MEDS: PANTOPRAZOLE SODIUM 40 MG TABLET.DR PO SCH (06:14)
[2016-09-18] MEDS: SUCRALFATE 1 G/10 ML LIQUID UDC PO SCH ×3 (06:14→16:48)
[2016-09-18] MEDS: ASPIRIN 325 MG TABLET PO SCH (08:19)
[2016-09-18] MEDS: MECLIZINE HCL 25 MG TABLET PO SCH ×4 (08:19→20:18)
[2016-09-18] MEDS: CALCIUM CARB/VITAMIN D 500MG-200UNITS TABLET PO SCH ×2 (08:19→16:48)
[2016-09-18] MEDS: QUETIAPINE FUMARATE 25 MG TABLET PO SCH (08:19)
[2016-09-18] MEDS: VALSARTAN 160 MG TABLET PO SCH ×2 (08:20→20:19)
[2016-09-18] MEDS: FLUTICASONE/VILANTEROL 1 EACH BLST.W.DEV INH SCH (08:21)
[2016-09-18] MEDS: Z GUARD REMEDY PASTE 57 GM TUBE TOP SCH ×2 (08:21→20:18)
[2016-09-18] MEDS: SIMVASTATIN 10 MG TABLET PO SCH (08:21)
[2016-09-18] MEDS ORDERED: LEVOFLOXACIN 500 MG/D5W 500 MG in PREMIXED 1 EACH IV SCH (08:30)
[2016-09-18 09:21] LABS: BASOPHILS # (AUTO) 0.1 K/uL (0.0-8.0); BASOPHILS % (AUTO) 0.8 % (0.0-2.0); EOSINOPHILS # (AUTO) 0.2 K/uL (0.0-0.7); EOSINOPHILS % (AUTO) 2.5 % (0.0-7.0); HEMOGLOBIN 10.9 G/DL (12.0-16.0); LYMPHOCYTES # (AUTO) 1.4 K/UL (0.8-4.8); LYMPHOCYTES % (AUTO) 18.4 % (20.5-51.5); MEAN CORPUSCULAR HEMOGLOBIN 27.9 UUG (27.0-31.0); MEAN CORPUSCULAR HGB CONC 33 g/dL (32.0-37.0); MEAN CORPUSCULAR VOLUME 83.9 FL (81.0-99.0); MONOCYTES # (AUTO) 0.6 K/UL (0.1-1.30); MONOCYTES % (AUTO) 8.6 % (0.0-11.0); NEUTROPHILS # (AUTO) 5.1 K/UL (1.8-8.9); NEUTROPHILS % (AUTO) 69.7 % (38.5-71.5); PLATELET COUNT (AUTO) 465 K/UL (150-450); WHITE BLOOD COUNT (AUTO) 7.4 K/UL (4.0-11.2)
[2016-09-18 09:24] LABS: HEMATOCRIT 32.9 % (37-47); RED BLOOD CELL COUNT(AUTO) 3.92 MIL/UL (4.2-5.4)
[2016-09-18 09:33] LABS: ALANINE AMINOTRANSFERASE 19 U/L (14-59); ALKALINE PHOSPHATASE 89 U/L (50-136); ASPARTATE AMINOTRANSFERASE 15 U/L (15-37); BILIRUBIN,TOTAL 0.3 mg/dL (0.2-1.0); CARBON DIOXIDE 27 mmol/L (21-32); CHLORIDE 98 mmol/L (98-107); CREATININE 0.9 mg/dL (0.6-1.3); GLUCOSE 151 mg/dL (74-106); MAGNESIUM 1.8 mg/dL (1.8-2.4); PHOSPHOROUS 3.5 mg/dL (2.5-4.9); POTASSIUM 3.7 mmol/L (3.5-5.1); TOTAL PROTEIN, SERUM 6.5 g/dL (6.4-8.2); UREA NITROGEN, BLOOD 7 mg/dL (7-18)
[2016-09-18] MEDS: SPIRONOLACTONE 25 MG TABLET PO SCH (09:36)
[2016-09-18 11:25] VITALS: BP 132/68
[2016-09-18 15:10] VITALS: BP 126/65
[2016-09-18] MEDS: MONTELUKAST SODIUM 10 MG TABLET PO SCH (16:49)
[2016-09-18 19:00] VITALS: BP 150/78
[2016-09-18] MEDS: TRAZODONE 50 MG TABLET PO SCH (20:18)
[2016-09-19 04:00] VITALS: BP 150/72
[2016-09-19] MEDS: AZTREONAM 1 G in IV NORMAL SALINE 50 ML IV SCH ×3 (05:11→21:41)
[2016-09-19] MEDS: PANTOPRAZOLE SODIUM 40 MG TABLET.DR PO SCH (06:02)
[2016-09-19] MEDS: VALSARTAN 160 MG TABLET PO SCH ×2 (06:07→20:18)
[2016-09-19] MEDS: SUCRALFATE 1 G/10 ML LIQUID UDC PO SCH ×3 (06:30→16:41)
[2016-09-19 06:58] LABS: ALANINE AMINOTRANSFERASE 14 U/L (14-59); ALKALINE PHOSPHATASE 81 U/L (50-136); ASPARTATE AMINOTRANSFERASE 13 U/L (15-37); BILIRUBIN,TOTAL 0.2 mg/dL (0.2-1.0); CARBON DIOXIDE 29 mmol/L (21-32); CHLORIDE 99 mmol/L (98-107); CREATININE 0.8 mg/dL (0.6-1.3); GLUCOSE 92 mg/dL (74-106); MAGNESIUM 1.6 mg/dL (1.8-2.4); PHOSPHOROUS 3.5 mg/dL (2.5-4.9); POTASSIUM 4.2 mmol/L (3.5-5.1); TOTAL PROTEIN, SERUM 5.8 g/dL (6.4-8.2); UREA NITROGEN, BLOOD 6 mg/dL (7-18)
[2016-09-19 06:59] LABS: BASOPHILS % (AUTO) 0.7 % (0.0-2.0); EOSINOPHILS # (AUTO) 0.3 K/uL (0.0-0.7); EOSINOPHILS % (AUTO) 4.5 % (0.0-7.0); HEMATOCRIT 31.1 % (37-47); HEMOGLOBIN 10.3 G/DL (12.0-16.0); LYMPHOCYTES # (AUTO) 1.6 K/UL (0.8-4.8); LYMPHOCYTES % (AUTO) 23.3 % (20.5-51.5); MEAN CORPUSCULAR HEMOGLOBIN 28.3 UUG (27.0-31.0); MEAN CORPUSCULAR HGB CONC 33 g/dL (32.0-37.0); MEAN CORPUSCULAR VOLUME 85.3 FL (81.0-99.0); MONOCYTES # (AUTO) 0.7 K/UL (0.1-1.30); MONOCYTES % (AUTO) 9.4 % (0.0-11.0); NEUTROPHILS # (AUTO) 4.3 K/UL (1.8-8.9); NEUTROPHILS % (AUTO) 62.1 % (38.5-71.5); PLATELET COUNT (AUTO) 464 K/UL (150-450); RED BLOOD CELL COUNT(AUTO) 3.64 MIL/UL (4.2-5.4); WHITE BLOOD COUNT (AUTO) 6.9 K/UL (4.0-11.2)
[2016-09-19] MEDS: SPIRONOLACTONE 25 MG TABLET PO SCH (08:34)
[2016-09-19] MEDS: CALCIUM CARB/VITAMIN D 500MG-200UNITS TABLET PO SCH ×2 (08:34→16:41)
[2016-09-19] MEDS: ACETAMINOPHEN/CODEINE 300-30 MG TABLET PO PRN (08:34)
[2016-09-19] MEDS: ASPIRIN 325 MG TABLET PO SCH (08:34)
[2016-09-19] MEDS: SIMVASTATIN 10 MG TABLET PO SCH (08:34)
[2016-09-19] MEDS: QUETIAPINE FUMARATE 25 MG TABLET PO SCH (08:35)
[2016-09-19] MEDS: MECLIZINE HCL 25 MG TABLET PO SCH ×4 (08:35→20:18)
[2016-09-19 08:39] VITALS: BP 120/60
[2016-09-19 10:58] VITALS: BP 126/63
[2016-09-19] MEDS: FLUTICASONE/VILANTEROL 1 EACH BLST.W.DEV INH SCH (11:55)
[2016-09-19] MEDS: Z GUARD REMEDY PASTE 57 GM TUBE TOP SCH ×2 (11:56→20:26)
[2016-09-19] MEDS ORDERED: AZTR1FRO IV (11:57)
[2016-09-19] MEDS ORDERED: VANC1PLA9 IV (11:57)
[2016-09-19] MEDS: VANCOMYCIN IV 1 G in PREMIXED 0 EACH IV SCH (12:31)
[2016-09-19 15:09] VITALS: BP 115/79
[2016-09-19] MEDS: MAGNESIUM SULFATE/D5W 100 ML IV SCH ×2 (15:19→16:41)
[2016-09-19] MEDS: MONTELUKAST SODIUM 10 MG TABLET PO SCH (16:41)
[2016-09-19] MEDS: IV NS 1000 ML 1,000 ML IV PRN (18:07)
[2016-09-19 20:00] VITALS: BP 127/63
[2016-09-19] MEDS: TRAZODONE 50 MG TABLET PO SCH (20:18)
[2016-09-20 05:01] VITALS: BP 164/79
[2016-09-20] MEDS: AZTREONAM 1 G in IV NORMAL SALINE 50 ML IV SCH ×3 (06:06→21:50)
[2016-09-20] MEDS: PANTOPRAZOLE SODIUM 40 MG TABLET.DR PO SCH (06:06)
[2016-09-20] MEDS: SUCRALFATE 1 G/10 ML LIQUID UDC PO SCH ×3 (06:31→17:08)
[2016-09-20] MEDS: CALCIUM CARB/VITAMIN D 500MG-200UNITS TABLET PO SCH ×2 (08:30→17:08)
[2016-09-20] MEDS: MECLIZINE HCL 25 MG TABLET PO SCH ×4 (08:30→21:47)
[2016-09-20] MEDS: QUETIAPINE FUMARATE 25 MG TABLET PO SCH (08:30)
[2016-09-20] MEDS: SIMVASTATIN 10 MG TABLET PO SCH (08:30)
[2016-09-20] MEDS: ASPIRIN 325 MG TABLET PO SCH (08:30)
[2016-09-20] MEDS: SPIRONOLACTONE 25 MG TABLET PO SCH (08:30)
[2016-09-20] MEDS: FLUTICASONE/VILANTEROL 1 EACH BLST.W.DEV INH SCH (08:39)
[2016-09-20] MEDS: VALSARTAN 160 MG TABLET PO SCH ×2 (08:39→21:47)
[2016-09-20] MEDS: Z GUARD REMEDY PASTE 57 GM TUBE TOP SCH (08:40)
[2016-09-20] MEDS: IV NS 1000 ML 1,000 ML IV PRN (08:52)
[2016-09-20 11:23] VITALS: BP 119/40
[2016-09-20] MEDS: VANCOMYCIN IV 1 G in PREMIXED 0 EACH IV SCH (13:16)
[2016-09-20 15:43] VITALS: BP 119/40
[2016-09-20] MEDS: MONTELUKAST SODIUM 10 MG TABLET PO SCH (17:08)
[2016-09-20 20:00] VITALS: BP 156/63
[2016-09-20] MEDS: ACETAMINOPHEN/CODEINE 300-30 MG TABLET PO PRN (21:46)
[2016-09-20] MEDS: LACTOBACILLUS RHAMNOSUS GG 1 EACH CAPSULE PO SCH (21:48)
[2016-09-20] MEDS: TRAZODONE 50 MG TABLET PO SCH (21:49)
[2016-09-21 05:39] VITALS: BP 162/61
[2016-09-21] MEDS: PANTOPRAZOLE SODIUM 40 MG TABLET.DR PO SCH (06:36)
[2016-09-21] MEDS: AZTREONAM 1 G in IV NORMAL SALINE 50 ML IV SCH ×3 (06:36→21:27)
[2016-09-21] MEDS: SUCRALFATE 1 G/10 ML LIQUID UDC PO SCH ×3 (06:36→17:55)
[2016-09-21] MEDS: FLUTICASONE/VILANTEROL 1 EACH BLST.W.DEV INH SCH (08:54)
[2016-09-21] MEDS: MECLIZINE HCL 25 MG TABLET PO SCH ×4 (08:55→20:28)
[2016-09-21] MEDS: SPIRONOLACTONE 25 MG TABLET PO SCH (08:55)
[2016-09-21] MEDS: ASPIRIN 325 MG TABLET PO SCH (08:55)
[2016-09-21] MEDS: QUETIAPINE FUMARATE 25 MG TABLET PO SCH (08:55)
[2016-09-21] MEDS: LACTOBACILLUS RHAMNOSUS GG 1 EACH CAPSULE PO SCH ×2 (08:55→20:28)
[2016-09-21] MEDS: VALSARTAN 160 MG TABLET PO SCH ×2 (08:56→20:28)
[2016-09-21] MEDS: SIMVASTATIN 10 MG TABLET PO SCH (08:56)
[2016-09-21] MEDS: Z GUARD REMEDY PASTE 57 GM TUBE TOP SCH ×2 (09:00→20:28)
[2016-09-21 11:47] VITALS: BP 103/52
[2016-09-21] MEDS: VANCOMYCIN IV 1 G in PREMIXED 0 EACH IV SCH (12:00)
[2016-09-21] MEDS: CALCIUM CARB/VITAMIN D 500MG-200UNITS TABLET PO SCH ×2 (12:00→17:55)
[2016-09-21 16:00] VITALS: BP 132/54
[2016-09-21] MEDS: MONTELUKAST SODIUM 10 MG TABLET PO SCH (17:55)
[2016-09-21] MEDS: TRAZODONE 50 MG TABLET PO SCH (20:28)
[2016-09-21 20:32] VITALS: BP 161/56
[2016-09-21] MEDS: IV NS 1000 ML 1,000 ML IV PRN (20:36)
[2016-09-22 04:46] VITALS: BP 163/62
[2016-09-22 05:25] VITALS: BP 152/64
[2016-09-22] MEDS: AZTREONAM 1 G in IV NORMAL SALINE 50 ML IV SCH ×2 (05:31→13:07)
[2016-09-22] MEDS: PANTOPRAZOLE SODIUM 40 MG TABLET.DR PO SCH (06:19)
[2016-09-22] MEDS: SUCRALFATE 1 G/10 ML LIQUID UDC PO SCH ×3 (07:42→16:22)
[2016-09-22] MEDS: ASPIRIN 325 MG TABLET PO SCH (08:09)
[2016-09-22] MEDS: MECLIZINE HCL 25 MG TABLET PO SCH ×4 (08:09→20:56)
[2016-09-22] MEDS: FLUTICASONE/VILANTEROL 1 EACH BLST.W.DEV INH SCH (08:09)
[2016-09-22] MEDS: LACTOBACILLUS RHAMNOSUS GG 1 EACH CAPSULE PO SCH ×2 (08:09→20:55)
[2016-09-22] MEDS: SIMVASTATIN 10 MG TABLET PO SCH (08:10)
[2016-09-22] MEDS: SPIRONOLACTONE 25 MG TABLET PO SCH (08:10)
[2016-09-22] MEDS: QUETIAPINE FUMARATE 25 MG TABLET PO SCH (08:10)
[2016-09-22] MEDS: VALSARTAN 160 MG TABLET PO SCH ×2 (08:11→20:55)
[2016-09-22] MEDS: CALCIUM CARB/VITAMIN D 500MG-200UNITS TABLET PO SCH ×2 (08:11→16:23)
[2016-09-22] MEDS: Z GUARD REMEDY PASTE 57 GM TUBE TOP SCH ×2 (08:12→21:18)
[2016-09-22] MEDS ORDERED: CLONIDINE-TTS 3 PATCH TD SCH (09:00)
[2016-09-22 11:27] VITALS: BP 129/49
[2016-09-22] MEDS: VANCOMYCIN IV 1 G in PREMIXED 0 EACH IV SCH (14:04)
[2016-09-22 15:55] VITALS: BP 160/69
[2016-09-22] MEDS: MONTELUKAST SODIUM 10 MG TABLET PO SCH (17:02)
[2016-09-22 20:55] VITALS: BP 162/75
[2016-09-22] MEDS: TRAZODONE 50 MG TABLET PO SCH (20:56)
[2016-09-23] MEDS ORDERED: LACT1CAP59 PO (08:25)
[2016-09-23] MEDS ORDERED: PANT40TA2 PO (08:27)
[2016-09-23] MEDS ORDERED: Z-GUARD ×2 (08:29)
[2016-09-23] MEDS ORDERED: VANCOMYCIN IV 1 G in PREMIXED 0 EACH IV SCH (10:00)
== END 2016-09-22 22:22 | DRG 643 ==
LOC: ER 18:11 → TELE-TD 21:42 → TELE 09-16 08:23 → MED 09-17 15:00
PROVIDERS: ADMIT Internal Medicine; ATTEND Internal Medicine
DX: E22.2 Syndrome of inappropriate secretion of antidiuretic hormone (principal); R53.2 Functional quadriplegia; I21.4 Non-ST elevation (NSTEMI) myocardial infarction; J96.90 Respiratory failure, unspecified, unspecified whether with hypoxia or hypercapnia; J18.9 Pneumonia, unspecified organism; N17.9 Acute kidney failure, unspecified; I50.33 Acute on chronic diastolic (congestive) heart failure; J44.0 Chronic obstructive pulmonary disease with (acute) lower respiratory infection; I11.0 Hypertensive heart disease with heart failure; J44.1 Chronic obstructive pulmonary disease with (acute) exacerbation; N39.0 Urinary tract infection, site not specified; J45.901 Unspecified asthma with (acute) exacerbation; F03.90 Unspecified dementia, unspecified severity, without behavioral disturbance, psychotic disturbance, mood disturbance, and anxiety; E86.1 Hypovolemia; E11.43 Type 2 diabetes mellitus with diabetic autonomic (poly)neuropathy; D35.02 Benign neoplasm of left adrenal gland; D35.01 Benign neoplasm of right adrenal gland; B96.20 Unspecified Escherichia coli [E. coli] as the cause of diseases classified elsewhere; K21.9 Gastro-esophageal reflux disease without esophagitis; Y95 Nosocomial condition; Z88.0 Allergy status to penicillin; Z87.440 Personal history of urinary (tract) infections; Z86.73 Personal history of transient ischemic attack (TIA), and cerebral infarction without residual deficits; D50.0 Iron deficiency anemia secondary to blood loss (chronic); E78.5 Hyperlipidemia, unspecified; K29.60 Other gastritis without bleeding; N39.3 Stress incontinence (female) (male); H81.399 Other peripheral vertigo, unspecified ear; K31.84 Gastroparesis; Z16.24 Resistance to multiple antibiotics
CPT/HCPCS: 36415; 36600; 70030-TC; 70450; 71010; 82533; 83605; 83735; 84100; 84300; 84443; 84550; 85025; 87040; 87077; 87086; 93005; 97110; 97116; 97161; 97530; A4663; J1580; J3370; J3475; J3490; J7030; J7040; J7060; J8597

== ENCOUNTER 2016-09-22 19:21 | Inpatient (IN) | payer MEDICARE, MEDICAID ==
[~2016-09-22] VITALS: Ht 154.9 cm; Wt 62.6 kg
[~2016-09-22 19:21] MED LIST changes: +AZTR1FRO IV; -Erythromycin Ethylsuccinate PO; +ONDA4TAB5 PO; -TRAZ-144 PO; +TRAZ150T75 PO; +VANC1PLA9 IV
[2016-09-22 21:53] VITALS: BP 143/71
--- NOTE | 2016-09-22 21:53 | NUR ---
RECEIVED DIRECT ADMIT FROM MED SURG TO ARU , ROOM 103 WITH DX OF FUNCTIONAL QUAD.CAME FROM MED SURG VIA W/C IN NO APPARENT DISTRESS. PRIMARY LANGUAGE IS BELGIAN BUT UNDERSTANDS SOME DIVEHI AND DOES FOLLOW MOST COMMANDS. ORIENTED TO NAME, PLACE, TIME, AND SITUATION. APPEARS TO BE FORGETFUL AT TIMES. C/O GENERALIZED DISCOMFORT ON AND OFF BUT REFUSES ANY PAIN MEDS AT THIS TIME. ORIENTED TO ARU ROUTINE, CALL LIGHT, TV, LIGHTS, AND ALL QUESTIONS ANSWERED. ADMISSION INTERVIEW DONE WITH PATIENT AND INFO OBTAINED FROM OLD RECORDS. PICTURES TAKEN OF SKIN IRRITATION UNDER LEFT BREAST AND PICTURES PLACED IN CHART. Z GUARD APPLIED TO THIS AREA. AND KEPT CLEAN AND DRY.CALL LIGHT WITHIN REACH AND BED ALARM ON AAT
[2016-09-22] MEDS ORDERED: Z GUARD REMEDY PASTE 57 GM TUBE TOP PRN (23:00)
--- NOTE | 2016-09-23 06:00 | NUR ---
SLEPT WELL THROUGH THE NIGHT. FREE FROM INJURY. NO FURTHER SKIN ISSUES NOTED. PROTECTED CARLOS ALBERTO AREA AND UNDER LEFT BREAST WITH Z GUARD. VOIDED X 3 INCONTINENCE. WILL BE STARTING ON CLINDAMYCIN TODAY. COMFORTABLE WITHOUT C/O PAIN THIS MORNING. CALL LIGHT WITHIN REACH AND BED ALARM ON.
[2016-09-23] MEDS ORDERED: PANTOPRAZOLE SODIUM 40 MG TABLET.DR PO ONE (06:29)
[2016-09-23] MEDS: PANTOPRAZOLE SODIUM 40 MG TABLET.DR PO SCH (07:00)
[2016-09-23 07:30] VITALS: BP 155/65
[2016-09-23] MEDS ORDERED: LACT1CAP59 PO (08:25)
[2016-09-23] MEDS ORDERED: PANT40TA2 PO (08:27)
[2016-09-23] MEDS ORDERED: Z-GUARD ×2 (08:29)
[2016-09-23] MEDS ORDERED: ONDANSETRON HCL 4 MG TABLET PO PRN (08:45)
[2016-09-23] MEDS ORDERED: Z GUARD REMEDY PASTE 57 GM TUBE TOP PRN (08:45)
[2016-09-23] MEDS: Z GUARD REMEDY PASTE 57 GM TUBE TOP SCH ×2 (09:00→20:58)
[2016-09-23] MEDS ORDERED: Z GUARD REMEDY PASTE 57 GM TUBE TOP SCH (09:00)
[2016-09-23] MEDS: ASPIRIN 325 MG TABLET PO SCH (09:00)
[2016-09-23] MEDS: ACETAMINOPHEN/CODEINE 300-30 MG TABLET PO PRN (11:04)
[2016-09-23] MEDS: QUETIAPINE FUMARATE 25 MG TABLET PO SCH (11:05)
[2016-09-23] MEDS: CLINDAMYCIN HCL 300 MG CAPSULE PO SCH ×3 (11:05→20:58)
[2016-09-23] MEDS: VALSARTAN 160 MG TABLET PO SCH ×2 (11:05→20:57)
[2016-09-23] MEDS: FLUTICASONE/VILANTEROL 1 EACH BLST.W.DEV INH SCH (11:05)
[2016-09-23] MEDS: LACTOBACILLUS RHAMNOSUS GG 1 EACH CAPSULE PO SCH ×2 (11:05→20:56)
[2016-09-23] MEDS: SUCRALFATE 1 G/10 ML LIQUID UDC PO SCH ×2 (11:06→17:17)
[2016-09-23] MEDS: CALCIUM CARB/VITAMIN D 500MG-200UNITS TABLET PO SCH ×2 (11:06→17:16)
[2016-09-23] MEDS: SPIRONOLACTONE 25 MG TABLET PO SCH (11:06)
[2016-09-23] MEDS: MECLIZINE HCL 25 MG TABLET PO SCH ×4 (11:06→20:55)
[2016-09-23 11:45] LABS: BASOPHILS % (AUTO) 0.4 % (0.0-2.0); EOSINOPHILS # (AUTO) 0.2 K/uL (0.0-0.7); EOSINOPHILS % (AUTO) 2.1 % (0.0-7.0); HEMATOCRIT 31.2 % (37-47); HEMOGLOBIN 10.6 G/DL (12.0-16.0); LYMPHOCYTES # (AUTO) 1.9 K/UL (0.8-4.8); LYMPHOCYTES % (AUTO) 21.1 % (20.5-51.5); MEAN CORPUSCULAR HEMOGLOBIN 28.7 UUG (27.0-31.0); MEAN CORPUSCULAR HGB CONC 34 g/dL (32.0-37.0); MEAN CORPUSCULAR VOLUME 84.8 FL (81.0-99.0); MONOCYTES # (AUTO) 0.5 K/UL (0.1-1.30); NEUTROPHILS # (AUTO) 6.5 K/UL (1.8-8.9); NEUTROPHILS % (AUTO) 70.4 % (38.5-71.5); PLATELET COUNT (AUTO) 425 K/UL (150-450); RED BLOOD CELL COUNT(AUTO) 3.68 MIL/UL (4.2-5.4); WHITE BLOOD COUNT (AUTO) 9.1 K/UL (4.0-11.2)
[2016-09-23 11:58] LABS: ALANINE AMINOTRANSFERASE 20 U/L (14-59); ALKALINE PHOSPHATASE 81 U/L (50-136); ASPARTATE AMINOTRANSFERASE 23 U/L (15-37); BILIRUBIN,TOTAL 0.2 mg/dL (0.2-1.0); CARBON DIOXIDE 29 mmol/L (21-32); CHLORIDE 97 mmol/L (98-107); GLUCOSE 166 mg/dL (74-106); MAGNESIUM 1.4 mg/dL (1.8-2.4); PHOSPHOROUS 3.9 mg/dL (2.5-4.9); UREA NITROGEN, BLOOD 9 mg/dL (7-18)
--- NOTE | 2016-09-23 14:25 | NUR ---
REHAB TEAM CONFERENCE 09/23/16
[2016-09-23] MEDS: MONTELUKAST SODIUM 10 MG TABLET PO SCH (17:16)
[2016-09-23 20:25] VITALS: BP 146/69
[2016-09-23] MEDS: SIMVASTATIN 10 MG TABLET PO SCH (20:57)
[2016-09-23] MEDS: TRAZODONE 50 MG TABLET PO SCH (20:57)
[2016-09-24] MEDS: ACETAMINOPHEN/CODEINE 300-30 MG TABLET PO PRN (04:00)
[2016-09-24] MEDS: SUCRALFATE 1 G/10 ML LIQUID UDC PO SCH ×3 (06:38→17:48)
[2016-09-24] MEDS: PANTOPRAZOLE SODIUM 40 MG TABLET.DR PO SCH (06:38)
[2016-09-24] MEDS: CLINDAMYCIN HCL 300 MG CAPSULE PO SCH ×3 (06:38→20:53)
[2016-09-24] MEDS ORDERED: PANTOPRAZOLE SODIUM 40 MG TABLET.DR PO SCH (07:00)
--- NOTE | 2016-09-24 07:00 | NUR ---
pt medicated with tylenol #3 with good relief from general body ache.no bm, assisted to bathroom x2 ,voided with use of her FWW.all needs attended.no significant changes.
--- NOTE | 2016-09-24 08:10 | NUR ---
Received patient awake alert and oriented, up with occupational therapy. With head ache, seen by dr. Izquierdo. Continue medications and administer ASA as ordered.
[2016-09-24 08:13] VITALS: BP 141/64
[2016-09-24] MEDS: Z GUARD REMEDY PASTE 57 GM TUBE TOP SCH ×2 (09:17→20:54)
[2016-09-24] MEDS: ASPIRIN 325 MG TABLET PO SCH (09:17)
[2016-09-24] MEDS: CALCIUM CARB/VITAMIN D 500MG-200UNITS TABLET PO SCH ×2 (09:17→17:48)
[2016-09-24] MEDS: FLUTICASONE/VILANTEROL 1 EACH BLST.W.DEV INH SCH (09:17)
[2016-09-24] MEDS: MECLIZINE HCL 25 MG TABLET PO SCH ×4 (09:18→20:52)
[2016-09-24] MEDS: SPIRONOLACTONE 25 MG TABLET PO SCH (09:18)
[2016-09-24] MEDS: QUETIAPINE FUMARATE 25 MG TABLET PO SCH (09:18)
[2016-09-24] MEDS: LACTOBACILLUS RHAMNOSUS GG 1 EACH CAPSULE PO SCH ×2 (09:18→20:52)
[2016-09-24] MEDS: VALSARTAN 160 MG TABLET PO SCH ×2 (09:19→20:53)
[2016-09-24] MEDS: AMLODIPINE 5 MG TABLET PO SCH (09:19)
--- NOTE | 2016-09-24 14:00 | NUR ---
Up with physical therapy. Tolerated therapy well. No complaints of pain at the moment.
[2016-09-24] MEDS: MONTELUKAST SODIUM 10 MG TABLET PO SCH (17:48)
[2016-09-24 20:09] VITALS: BP 126/61
[2016-09-24] MEDS: SIMVASTATIN 10 MG TABLET PO SCH (20:52)
[2016-09-24] MEDS: TRAZODONE 50 MG TABLET PO SCH (20:53)
--- NOTE | 2016-09-25 06:00 | NUR ---
pt stated no sleep overnight, voiding x4 to toilet ambulated with FWW with assist.vss,afebrile,all needs attended.
[2016-09-25] MEDS: CLINDAMYCIN HCL 300 MG CAPSULE PO SCH ×3 (06:16→21:13)
[2016-09-25] MEDS: PANTOPRAZOLE SODIUM 40 MG TABLET.DR PO SCH (06:16)
[2016-09-25] MEDS: SUCRALFATE 1 G/10 ML LIQUID UDC PO SCH ×3 (06:16→17:20)
[2016-09-25 08:48] VITALS: BP 123/61
[2016-09-25] MEDS: ASPIRIN 325 MG TABLET PO SCH (09:00)
[2016-09-25] MEDS: QUETIAPINE FUMARATE 25 MG TABLET PO SCH (10:03)
[2016-09-25] MEDS: MECLIZINE HCL 25 MG TABLET PO SCH ×4 (10:03→20:59)
[2016-09-25] MEDS: SPIRONOLACTONE 25 MG TABLET PO SCH (10:03)
[2016-09-25] MEDS: CALCIUM CARB/VITAMIN D 500MG-200UNITS TABLET PO SCH ×2 (10:04→17:20)
[2016-09-25] MEDS: LACTOBACILLUS RHAMNOSUS GG 1 EACH CAPSULE PO SCH ×2 (10:05→20:59)
[2016-09-25] MEDS: VALSARTAN 160 MG TABLET PO SCH ×2 (10:05→20:58)
[2016-09-25] MEDS: AMLODIPINE 5 MG TABLET PO SCH (10:05)
[2016-09-25] MEDS: FLUTICASONE/VILANTEROL 1 EACH BLST.W.DEV INH SCH (10:06)
[2016-09-25] MEDS: Z GUARD REMEDY PASTE 57 GM TUBE TOP SCH ×2 (10:06→21:00)
[2016-09-25] MEDS: ACETAMINOPHEN/CODEINE 300-30 MG TABLET PO PRN (11:52)
[2016-09-25] MEDS: MONTELUKAST SODIUM 10 MG TABLET PO SCH (18:36)
[2016-09-25 20:10] VITALS: BP 100/48
[2016-09-25] MEDS: TRAZODONE 50 MG TABLET PO SCH (20:59)
[2016-09-25] MEDS: SIMVASTATIN 10 MG TABLET PO SCH (20:59)
[2016-09-26] MEDS: PANTOPRAZOLE SODIUM 40 MG TABLET.DR PO SCH (06:23)
[2016-09-26] MEDS: CLINDAMYCIN HCL 300 MG CAPSULE PO SCH ×3 (06:23→21:28)
[2016-09-26] MEDS: SUCRALFATE 1 G/10 ML LIQUID UDC PO SCH ×3 (07:06→17:26)
--- NOTE | 2016-09-26 07:10 | NUR ---
RECEIVED REPORT FROM LEAD SOFTWARE ARCHITECT, PATIENT IN BED SLEEPING, NO EVIDENCE OF DISTRESS NOTED, BED IN LOW POSITION, SIDE RAILS UP X2, CALL LIGHT WITHIN REACH.
[2016-09-26 07:58] VITALS: BP 129/65
[2016-09-26] MEDS: AMLODIPINE 5 MG TABLET PO SCH (09:33)
[2016-09-26] MEDS: LACTOBACILLUS RHAMNOSUS GG 1 EACH CAPSULE PO SCH ×2 (09:33→20:33)
[2016-09-26] MEDS: FLUTICASONE/VILANTEROL 1 EACH BLST.W.DEV INH SCH (09:33)
[2016-09-26] MEDS: QUETIAPINE FUMARATE 25 MG TABLET PO SCH (09:34)
[2016-09-26] MEDS: VALSARTAN 160 MG TABLET PO SCH ×2 (09:34→20:34)
[2016-09-26] MEDS: CALCIUM CARB/VITAMIN D 500MG-200UNITS TABLET PO SCH ×2 (09:34→17:26)
[2016-09-26] MEDS: ASPIRIN 325 MG TABLET PO SCH (09:34)
[2016-09-26] MEDS: MECLIZINE HCL 25 MG TABLET PO SCH ×4 (09:34→20:33)
[2016-09-26] MEDS: Z GUARD REMEDY PASTE 57 GM TUBE TOP SCH ×2 (09:34→20:37)
[2016-09-26] MEDS: SPIRONOLACTONE 25 MG TABLET PO SCH (09:34)
[2016-09-26] MEDS: MONTELUKAST SODIUM 10 MG TABLET PO SCH (17:28)
--- NOTE | 2016-09-26 18:16 | NUR ---
PATIENT HAS BEEN AMBULATING WITH ASSISTANCE BETWEEN BED AND CHAIR. WALKER USED FOR AMBULATING TO RESTROOM. PATIENT HAS BEEN URINATING WITHOUT DIFFICULTY.
[2016-09-26 19:54] VITALS: BP 113/51
--- NOTE | 2016-09-26 20:00 | NUR ---
PT ALERT AND ORIENTED IN BED. NO DISTRESS NOTED. COMPLIANT WITH NURSING CARE AND MEDICATIONS. SAFETY MAINTAINED. CALL LIGHT WITHIN REACH. WILL CONTINUE TO MONITOR.
[2016-09-26] MEDS: TRAZODONE 50 MG TABLET PO SCH (20:32)
[2016-09-26] MEDS: SIMVASTATIN 10 MG TABLET PO SCH (20:33)
--- NOTE | 2016-09-26 21:00 | NUR ---
SILVER SULFADIAZINE 1% CREAM NOT ON UNIT. LET CARPET YARN WINDER OPERATOR KNOW IN ORDER TO GET A NEW TUBE. Addendum: 09/27/16 at 0448 by DERRELL YEBOAH RN CHARTED ON WRONG PT
[2016-09-27] MEDS: CLINDAMYCIN HCL 300 MG CAPSULE PO SCH ×3 (06:14→20:39)
[2016-09-27] MEDS: PANTOPRAZOLE SODIUM 40 MG TABLET.DR PO SCH (06:15)
--- NOTE | 2016-09-27 06:53 | NUR ---
PT RESTING IN BED. NO DISTRESS NOTED. SLEPT WELL THROUGHOUT THE NIGHT. URINATING WELL WITH ASSIST TO RESTROOM. SAFETY MAINTAINED. CALL LIGHT WITHIN REACH.
--- NOTE | 2016-09-27 07:10 | NUR ---
RECEIVED REPORT FROM SERVICE ADMINISTRATOR NURSE. PATIENT IN BED, NO EVIDENCE OF DISTRESS NOTED. BED IN LOW POSITION, SIDE RAILS UP X2, BED ALARM ON.
[2016-09-27] MEDS: SUCRALFATE 1 G/10 ML LIQUID UDC PO SCH ×3 (07:30→17:24)
[2016-09-27 08:00] VITALS: BP 123/62
[2016-09-27] MEDS: FLUTICASONE/VILANTEROL 1 EACH BLST.W.DEV INH SCH (08:43)
[2016-09-27] MEDS: CALCIUM CARB/VITAMIN D 500MG-200UNITS TABLET PO SCH ×2 (08:43→17:24)
[2016-09-27] MEDS: ASPIRIN 325 MG TABLET PO SCH (08:44)
[2016-09-27] MEDS: LACTOBACILLUS RHAMNOSUS GG 1 EACH CAPSULE PO SCH ×2 (08:44→20:40)
[2016-09-27] MEDS: SPIRONOLACTONE 25 MG TABLET PO SCH (08:44)
[2016-09-27] MEDS: MECLIZINE HCL 25 MG TABLET PO SCH ×4 (08:44→20:39)
[2016-09-27] MEDS: QUETIAPINE FUMARATE 25 MG TABLET PO SCH (08:45)
[2016-09-27] MEDS: VALSARTAN 160 MG TABLET PO SCH ×2 (08:48→20:42)
[2016-09-27] MEDS: AMLODIPINE 5 MG TABLET PO SCH (08:49)
[2016-09-27] MEDS: Z GUARD REMEDY PASTE 57 GM TUBE TOP SCH ×2 (08:51→20:45)
[2016-09-27] MEDS: MONTELUKAST SODIUM 10 MG TABLET PO SCH (17:24)
--- NOTE | 2016-09-27 18:23 | NUR ---
PATIENT HAS BEEN SOMEWHAT HESITANT TO GO TO THERAPY TODAY, AND STATED THAT HER BLOOD PRESSURE WAS LOW. BLOOD PRESSURE WAS CHECKED AND PATIENT AGREED TO GO. OTHERWISE PATIENT HAD A GOOD DAY WITH NO EVIDENCE OF DISTRESS, NO SOB, NO PAIN. BED IN LOW POSITION, SIDE RAILS UP X2.
[2016-09-27 20:00] VITALS: BP 112/42
[2016-09-27] MEDS: SIMVASTATIN 10 MG TABLET PO SCH (20:39)
[2016-09-27] MEDS: TRAZODONE 50 MG TABLET PO SCH (20:39)
[2016-09-27] MEDS: ACETAMINOPHEN/CODEINE 300-30 MG TABLET PO PRN (23:50)
--- NOTE | 2016-09-28 06:00 | NUR ---
PT OOB TO BATHROOM VOIDING MUCH,C/O PAIN TO SHOULDERS GIVEN TYLENOL#3 AND SLEPT WELL, ALL NEEDS ATTENDED, BED ALARM ACTIVE.
[2016-09-28] MEDS: CLINDAMYCIN HCL 300 MG CAPSULE PO SCH (06:25)
[2016-09-28] MEDS: SUCRALFATE 1 G/10 ML LIQUID UDC PO SCH ×3 (06:25→15:37)
[2016-09-28] MEDS: PANTOPRAZOLE SODIUM 40 MG TABLET.DR PO SCH (06:25)
--- NOTE | 2016-09-28 07:15 | NUR ---
bedside sbar report rec'd pt resting, no distress noted.
[2016-09-28 08:27] VITALS: BP 128/74
[2016-09-28] MEDS: AMLODIPINE 5 MG TABLET PO SCH (08:37)
[2016-09-28] MEDS: Z GUARD REMEDY PASTE 57 GM TUBE TOP SCH ×2 (08:38→21:44)
[2016-09-28] MEDS: LACTOBACILLUS RHAMNOSUS GG 1 EACH CAPSULE PO SCH ×2 (08:39→21:39)
[2016-09-28] MEDS: VALSARTAN 160 MG TABLET PO SCH ×2 (08:39→21:40)
[2016-09-28] MEDS: CALCIUM CARB/VITAMIN D 500MG-200UNITS TABLET PO SCH ×2 (08:39→16:33)
[2016-09-28] MEDS: MECLIZINE HCL 25 MG TABLET PO SCH ×4 (08:40→21:40)
[2016-09-28] MEDS: ASPIRIN 325 MG TABLET PO SCH (08:40)
[2016-09-28] MEDS: SPIRONOLACTONE 25 MG TABLET PO SCH (08:42)
[2016-09-28] MEDS: QUETIAPINE FUMARATE 25 MG TABLET PO SCH (08:43)
[2016-09-28] MEDS: FLUTICASONE/VILANTEROL 1 EACH BLST.W.DEV INH SCH (08:43)
[2016-09-28] MEDS: MONTELUKAST SODIUM 10 MG TABLET PO SCH (17:11)
--- NOTE | 2016-09-28 19:10 | NUR ---
PT COPPERATING WITH INTERVENTIONS /MEDS AND THERAPY. PT PROGRESSING TOWARDS GOALS. CONTINUE PLANS OF CARE.
[2016-09-28 20:10] VITALS: BP 116/60
[2016-09-28] MEDS: TRAZODONE 50 MG TABLET PO SCH (21:40)
[2016-09-28] MEDS: SIMVASTATIN 10 MG TABLET PO SCH (21:40)
--- NOTE | 2016-09-29 06:05 | NUR ---
SLEPT WELL, DENIES ANY PAIN OR DISCOMFORT. CALL LIGHT WITHIN REACH. ASSISTED TO BATHROOM. WILL CONTINUE TO MONITOR FOR COMFORT ABD SAFETY.
[2016-09-29] MEDS: PANTOPRAZOLE SODIUM 40 MG TABLET.DR PO SCH (06:56)
[2016-09-29] MEDS: SUCRALFATE 1 G/10 ML LIQUID UDC PO SCH ×3 (06:56→17:12)
[2016-09-29 07:54] VITALS: BP 147/66
--- NOTE | 2016-09-29 08:30 | NUR ---
Received patient, awake, alert and oriented. No complaints of discomfort at this time. not in any form of distress, patient had shower with minimal assist.
[2016-09-29] MEDS ORDERED: CLONIDINE-TTS 3 PATCH TD SCH (09:00)
[2016-09-29] MEDS: FLUTICASONE/VILANTEROL 1 EACH BLST.W.DEV INH SCH (09:15)
[2016-09-29] MEDS: LACTOBACILLUS RHAMNOSUS GG 1 EACH CAPSULE PO SCH ×2 (09:16→20:47)
[2016-09-29] MEDS: VALSARTAN 160 MG TABLET PO SCH ×2 (09:16→20:48)
[2016-09-29] MEDS: ASPIRIN 325 MG TABLET PO SCH (09:16)
[2016-09-29] MEDS: AMLODIPINE 5 MG TABLET PO SCH (09:16)
[2016-09-29] MEDS: MECLIZINE HCL 25 MG TABLET PO SCH ×4 (09:16→20:47)
[2016-09-29] MEDS: SPIRONOLACTONE 25 MG TABLET PO SCH (09:16)
[2016-09-29] MEDS: CALCIUM CARB/VITAMIN D 500MG-200UNITS TABLET PO SCH ×2 (09:17→17:12)
[2016-09-29] MEDS: QUETIAPINE FUMARATE 25 MG TABLET PO SCH (09:17)
[2016-09-29] MEDS: Z GUARD REMEDY PASTE 57 GM TUBE TOP SCH ×2 (09:17→20:50)
--- NOTE | 2016-09-29 10:05 | NUR ---
Up with occupational therapy. Tolerating therapy well. No complaints of pain at this time
[2016-09-29] MEDS: MONTELUKAST SODIUM 10 MG TABLET PO SCH (17:12)
[2016-09-29 20:26] VITALS: BP 115/61
[2016-09-29] MEDS: SIMVASTATIN 10 MG TABLET PO SCH (20:47)
[2016-09-29] MEDS: TRAZODONE 50 MG TABLET PO SCH (20:47)
[2016-09-30] MEDS: SUCRALFATE 1 G/10 ML LIQUID UDC PO SCH ×3 (07:18→17:24)
[2016-09-30] MEDS: PANTOPRAZOLE SODIUM 40 MG TABLET.DR PO SCH (07:18)
[2016-09-30 09:08] VITALS: BP 137/75
[2016-09-30] MEDS: ASPIRIN 325 MG TABLET PO SCH (09:49)
[2016-09-30] MEDS: FLUTICASONE/VILANTEROL 1 EACH BLST.W.DEV INH SCH ×2 (09:49→17:24)
[2016-09-30] MEDS: CALCIUM CARB/VITAMIN D 500MG-200UNITS TABLET PO SCH ×2 (09:49→17:25)
[2016-09-30] MEDS: AMLODIPINE 5 MG TABLET PO SCH (09:50)
[2016-09-30] MEDS: LACTOBACILLUS RHAMNOSUS GG 1 EACH CAPSULE PO SCH ×2 (09:50→20:44)
[2016-09-30] MEDS: QUETIAPINE FUMARATE 25 MG TABLET PO SCH (09:50)
[2016-09-30] MEDS: MECLIZINE HCL 25 MG TABLET PO SCH ×4 (09:50→20:44)
[2016-09-30] MEDS: SPIRONOLACTONE 25 MG TABLET PO SCH (09:50)
[2016-09-30] MEDS: VALSARTAN 160 MG TABLET PO SCH ×2 (09:51→20:43)
[2016-09-30] MEDS: Z GUARD REMEDY PASTE 57 GM TUBE TOP SCH ×2 (09:51→20:45)
--- NOTE | 2016-09-30 14:03 | NUR ---
REHAB TEAM CONFERENCE 09/30/16
[2016-09-30] MEDS: MONTELUKAST SODIUM 10 MG TABLET PO SCH (17:25)
[2016-09-30 20:31] VITALS: BP 94/50
[2016-09-30] MEDS: TRAZODONE 50 MG TABLET PO SCH (20:42)
[2016-09-30] MEDS: SIMVASTATIN 10 MG TABLET PO SCH (20:44)
--- NOTE | 2016-09-30 22:00 | NUR ---
Alert, pleasant and cooperative. Language barrier noted, mostly Korean. Denies pain/discomfort. Nursing comfort measures and fall/safety precautions observed at all times.
--- NOTE | 2016-10-01 06:00 | NUR ---
Stable, restful night. Able to sleep well. Denies pain/discomfort. PRN ambulation to bathroom with minimal supervision. In good spirits this AM. Safety/fall precautions maintained at all times.
[2016-10-01] MEDS: PANTOPRAZOLE SODIUM 40 MG TABLET.DR PO SCH (06:41)
[2016-10-01] MEDS: SUCRALFATE 1 G/10 ML LIQUID UDC PO SCH ×3 (06:41→17:28)
[2016-10-01 07:22] LABS: BASOPHILS % (AUTO) 0.7 % (0.0-2.0); EOSINOPHILS # (AUTO) 0.1 K/uL (0.0-0.7); EOSINOPHILS % (AUTO) 1.6 % (0.0-7.0); HEMOGLOBIN 10.3 G/DL (12.0-16.0); LYMPHOCYTES # (AUTO) 1.7 K/UL (0.8-4.8); LYMPHOCYTES % (AUTO) 28.2 % (20.5-51.5); MEAN CORPUSCULAR HEMOGLOBIN 27.8 UUG (27.0-31.0); MEAN CORPUSCULAR HGB CONC 33 g/dL (32.0-37.0); MONOCYTES # (AUTO) 0.6 K/UL (0.1-1.30); MONOCYTES % (AUTO) 9.8 % (0.0-11.0); NEUTROPHILS # (AUTO) 3.8 K/UL (1.8-8.9); NEUTROPHILS % (AUTO) 59.7 % (38.5-71.5); PLATELET COUNT (AUTO) 412 K/UL (150-450); WHITE BLOOD COUNT (AUTO) 6.2 K/UL (4.0-11.2)
[2016-10-01 08:50] LABS: ALANINE AMINOTRANSFERASE 17 U/L (14-59); ALKALINE PHOSPHATASE 70 U/L (50-136); ASPARTATE AMINOTRANSFERASE 16 U/L (15-37); BILIRUBIN,TOTAL 0.2 mg/dL (0.2-1.0); CARBON DIOXIDE 27 mmol/L (21-32); CHLORIDE 100 mmol/L (98-107); CREATININE 0.9 mg/dL (0.6-1.3); GLUCOSE 103 mg/dL (74-106); PHOSPHOROUS 3.7 mg/dL (2.5-4.9); TOTAL PROTEIN, SERUM 6.2 g/dL (6.4-8.2); UREA NITROGEN, BLOOD 8 mg/dL (7-18)
[2016-10-01 08:51] VITALS: BP 144/65
[2016-10-01 08:59] LABS: MAGNESIUM 1.6 mg/dL (1.8-2.4)
[2016-10-01] MEDS: SPIRONOLACTONE 25 MG TABLET PO SCH (09:00)
[2016-10-01] MEDS: MECLIZINE HCL 25 MG TABLET PO SCH ×4 (09:00→20:18)
[2016-10-01] MEDS: VALSARTAN 160 MG TABLET PO SCH ×2 (09:00→20:19)
[2016-10-01] MEDS: Z GUARD REMEDY PASTE 57 GM TUBE TOP SCH ×2 (09:00→20:20)
[2016-10-01] MEDS: LACTOBACILLUS RHAMNOSUS GG 1 EACH CAPSULE PO SCH ×2 (10:22→20:17)
[2016-10-01] MEDS: CALCIUM CARB/VITAMIN D 500MG-200UNITS TABLET PO SCH ×2 (10:23→17:28)
[2016-10-01] MEDS: ASPIRIN 325 MG TABLET PO SCH (10:23)
[2016-10-01] MEDS: AMLODIPINE 5 MG TABLET PO SCH (10:24)
[2016-10-01] MEDS: QUETIAPINE FUMARATE 25 MG TABLET PO SCH (10:24)
[2016-10-01] MEDS: FLUTICASONE/VILANTEROL 1 EACH BLST.W.DEV INH SCH (10:24)
[2016-10-01] MEDS: MONTELUKAST SODIUM 10 MG TABLET PO SCH (17:28)
[2016-10-01 19:55] VITALS: BP 100/52
[2016-10-01 20:04] VITALS: BP 100/52
[2016-10-01] MEDS: ACETAMINOPHEN/CODEINE 300-30 MG TABLET PO PRN (20:12)
[2016-10-01] MEDS: SIMVASTATIN 10 MG TABLET PO SCH (20:17)
[2016-10-01] MEDS: TRAZODONE 50 MG TABLET PO SCH (20:18)
--- NOTE | 2016-10-01 20:34 | NUR ---
Received patient in bed, no SOB denies chest discomfort but c/o 8/10 pain level headache. Vital signs WNL. Assisted to the bathroom, patient voided w/o difficulty. Medicated w/ Tylenol #3 for headache, patient tolerated routine night po meds. Discussed about current plan of care, will continue to monitor.
[2016-10-02] MEDS: PANTOPRAZOLE SODIUM 40 MG TABLET.DR PO SCH (06:39)
--- NOTE | 2016-10-02 06:53 | NUR ---
No significant change, patient slept well.
[2016-10-02 08:00] VITALS: BP 129/52
[2016-10-02] MEDS: Z GUARD REMEDY PASTE 57 GM TUBE TOP SCH ×2 (09:00→21:07)
[2016-10-02] MEDS: ASPIRIN 325 MG TABLET PO SCH (10:00)
[2016-10-02] MEDS: LACTOBACILLUS RHAMNOSUS GG 1 EACH CAPSULE PO SCH ×2 (10:00→20:52)
[2016-10-02] MEDS: QUETIAPINE FUMARATE 25 MG TABLET PO SCH (10:01)
[2016-10-02] MEDS: MECLIZINE HCL 25 MG TABLET PO SCH ×4 (10:01→20:53)
[2016-10-02] MEDS: SPIRONOLACTONE 25 MG TABLET PO SCH (10:01)
[2016-10-02] MEDS: CALCIUM CARB/VITAMIN D 500MG-200UNITS TABLET PO SCH ×2 (10:01→17:22)
[2016-10-02] MEDS: AMLODIPINE 5 MG TABLET PO SCH (10:02)
[2016-10-02] MEDS: VALSARTAN 160 MG TABLET PO SCH ×2 (10:02→21:00)
[2016-10-02] MEDS: SUCRALFATE 1 G/10 ML LIQUID UDC PO SCH ×3 (10:05→17:00)
[2016-10-02] MEDS: MONTELUKAST SODIUM 10 MG TABLET PO SCH (17:24)
--- NOTE | 2016-10-02 18:02 | NUR ---
PT. OOB TO BR USING WALKER AND SITTING UP AT BS FOR MEALS. WORKING WITH PT/OT WITH GOOD TOLERANCE. SISTER AT BS AND DISCUSSED PLANNED DISCHARGE TOMORROW. SISTER STATED SHE WILL BE PICKING UP PT. NO ACUTE DISTRESS.
--- NOTE | 2016-10-02 19:00 | NUR ---
RECEIVED PATIENT IN BED, NO SOB NO CHEST PAIN, ASSISTED WITH TOILETING, KEPT CLEAN AND DRY. CALL LIGHT WITHIN REACH.
[2016-10-02 19:49] VITALS: BP 96/52
[2016-10-02] MEDS: TRAZODONE 50 MG TABLET PO SCH (20:53)
[2016-10-02] MEDS: SIMVASTATIN 10 MG TABLET PO SCH (20:53)
[2016-10-02] MEDS: ACETAMINOPHEN/CODEINE 300-30 MG TABLET PO PRN (20:59)
[2016-10-03] MEDS: SUCRALFATE 1 G/10 ML LIQUID UDC PO SCH ×2 (06:02→11:57)
[2016-10-03] MEDS: PANTOPRAZOLE SODIUM 40 MG TABLET.DR PO SCH (06:02)
--- NOTE | 2016-10-03 06:20 | NUR ---
PATIENT SLEPT MOST OF THE NIGHT, ASSISTED WITH TOILETING, KEPT CLEAN AND DRY, NO SOB NO CHEST PAIN NOTED, CALL LIGHT WITHIN REACH.
--- NOTE | 2016-10-03 07:30 | NUR ---
oob for brp, tolerated well. up chair for breakfast , tolerated well. good appetite. denies discomfort. anxious to go home.
[2016-10-03 08:00] VITALS: BP 122/59
[2016-10-03] MEDS: FLUTICASONE/VILANTEROL 1 EACH BLST.W.DEV INH SCH (09:24)
[2016-10-03] MEDS: CALCIUM CARB/VITAMIN D 500MG-200UNITS TABLET PO SCH (09:25)
[2016-10-03] MEDS: SPIRONOLACTONE 25 MG TABLET PO SCH (09:25)
[2016-10-03] MEDS: VALSARTAN 160 MG TABLET PO SCH (09:25)
[2016-10-03] MEDS: QUETIAPINE FUMARATE 25 MG TABLET PO SCH (09:25)
[2016-10-03] MEDS: ASPIRIN 325 MG TABLET PO SCH (09:25)
[2016-10-03 09:26] VITALS: BP 122/59
[2016-10-03] MEDS: AMLODIPINE 5 MG TABLET PO SCH (09:26)
[2016-10-03] MEDS: LACTOBACILLUS RHAMNOSUS GG 1 EACH CAPSULE PO SCH (09:26)
[2016-10-03] MEDS: MECLIZINE HCL 25 MG TABLET PO SCH ×2 (09:26→13:48)
[2016-10-03] MEDS: Z GUARD REMEDY PASTE 57 GM TUBE TOP SCH (09:27)
--- NOTE | 2016-10-03 12:30 | NUR ---
picture taken for discharge. patient smiling prn.
--- NOTE | 2016-10-03 13:23 | NUR ---
resting well, denies discomfort. ate well
--- NOTE | 2016-10-03 16:08 | NUR ---
daughter in for discharge, supportive and appreciative of care. anxious to be home. belongings and home instruction and follow up discussed and aware daughter. left with walker, bedside commode and wheelchair.
== END 2016-10-03 16:08 | disposition home or self-care (01) | DRG 190 ==
PROVIDERS: ADMIT Physical Medicine & Rehabilitation Pain Medicine; ATTEND Physical Medicine & Rehabilitation Pain Medicine
DX: J44.1 Chronic obstructive pulmonary disease with (acute) exacerbation (principal); R53.2 Functional quadriplegia; J96.90 Respiratory failure, unspecified, unspecified whether with hypoxia or hypercapnia; J18.9 Pneumonia, unspecified organism; I50.33 Acute on chronic diastolic (congestive) heart failure; I11.0 Hypertensive heart disease with heart failure; E11.9 Type 2 diabetes mellitus without complications; F03.90 Unspecified dementia, unspecified severity, without behavioral disturbance, psychotic disturbance, mood disturbance, and anxiety; E86.1 Hypovolemia; E87.1 Hypo-osmolality and hyponatremia; J45.901 Unspecified asthma with (acute) exacerbation; D64.9 Anemia, unspecified; E78.5 Hyperlipidemia, unspecified; Z86.73 Personal history of transient ischemic attack (TIA), and cerebral infarction without residual deficits; R42 Dizziness and giddiness; R07.89 Other chest pain; R26.9 Unspecified abnormalities of gait and mobility; N28.9 Disorder of kidney and ureter, unspecified; J44.0 Chronic obstructive pulmonary disease with (acute) lower respiratory infection; I25.2 Old myocardial infarction; K21.9 Gastro-esophageal reflux disease without esophagitis; K22.70 Barrett's esophagus without dysplasia; K29.60 Other gastritis without bleeding; Z88.0 Allergy status to penicillin; Z87.440 Personal history of urinary (tract) infections
CPT/HCPCS: 36415; 83735; 84100; 85025; 92610; 97110; 97112; 97116; 97165; 97530; 97535; A4663; J8597

== ENCOUNTER 2016-11-14 19:59 | Inpatient (IN) | payer MEDICARE, MEDICAID ==
[~2016-11-14] VITALS: Ht 152.4 cm; Wt 68.9 kg
[~2016-11-14 19:59] MED LIST changes: -AZTR1FRO IV; -AZTR1VIA4 IV; -CLON0.3T PO; -DEXL60CA3 PO; +LACT1CAP59 PO; -NIFE30TA2 PO; +PANT40TA2 PO; -VANC1PLA9 IV; +Z-GUARD
--- NOTE | 2016-11-14 20:25 | NUR ---
DR. WARREN AT BEDSIDE FOR MSE.
[2016-11-14] MEDS ORDERED: ALBUTEROL SULFATE 2.5 MG/3 ML NEBU NEB ONE (20:30)
[2016-11-14] MEDS ORDERED: IPRATROPIUM BROMIDE 0.5 MG/2.5 ML NEBU NEB ONE (20:30)
[2016-11-14] MEDS ORDERED: NITROGLYCERIN 0.4 MG/TAB BOTTLE SL ONE ×2 (20:30→20:48)
[2016-11-14] MEDS ORDERED: ASPIRIN 325 MG TABLET PO ONE (20:30)
--- NOTE | 2016-11-14 20:38 | NUR ---
RT AT BEDSIDE FOR HHN TREATMENT.
[2016-11-14 20:43] LABS: BASOPHILS # (AUTO) 0.1 K/uL (0.0-8.0); BASOPHILS % (AUTO) 0.8 % (0.0-2.0); EOSINOPHILS # (AUTO) 0.1 K/uL (0.0-0.7); EOSINOPHILS % (AUTO) 0.6 % (0.0-7.0); HEMATOCRIT 34.7 % (37-47); HEMOGLOBIN 11.5 G/DL (12.0-16.0); LYMPHOCYTES # (AUTO) 1.7 K/UL (0.8-4.8); LYMPHOCYTES % (AUTO) 14.4 % (20.5-51.5); MEAN CORPUSCULAR HEMOGLOBIN 27.1 UUG (27.0-31.0); MEAN CORPUSCULAR HGB CONC 33 g/dL (32.0-37.0); MEAN CORPUSCULAR VOLUME 81.9 FL (81.0-99.0); MONOCYTES # (AUTO) 0.7 K/UL (0.1-1.30); MONOCYTES % (AUTO) 6.4 % (0.0-11.0); NEUTROPHILS # (AUTO) 8.9 K/UL (1.8-8.9); NEUTROPHILS % (AUTO) 77.8 % (38.5-71.5); PLATELET COUNT (AUTO) 539 K/UL (150-450); RED BLOOD CELL COUNT(AUTO) 4.23 MIL/UL (4.2-5.4); WHITE BLOOD COUNT (AUTO) 11.5 K/UL (4.0-11.2)
[2016-11-14] MEDS ORDERED: ASPIRIN 325 MG TABLET ONE (20:48)
[2016-11-14] MEDS ORDERED: ALBUTEROL SULFATE 2.5 MG/3 ML NEBU ONE (20:50)
[2016-11-14] MEDS ORDERED: IPRATROPIUM BROMIDE 0.5 MG/2.5 ML NEBU ONE (20:50)
[2016-11-14 20:52] LABS: CARBON DIOXIDE 25 mmol/L (21-32); CHLORIDE 91 mmol/L (98-107); CREATININE 1.4 mg/dL (0.6-1.3); GLUCOSE 180 mg/dL (74-106); POTASSIUM 5.9 mmol/L (3.5-5.1); UREA NITROGEN, BLOOD 23 mg/dL (7-18)
[2016-11-14 21:07] LABS: ALANINE AMINOTRANSFERASE 19 U/L (14-59); ALKALINE PHOSPHATASE 101 U/L (50-136); ASPARTATE AMINOTRANSFERASE 18 U/L (15-37); BILIRUBIN,DIRECT 0.1 mg/dL (0.0-0.2); BILIRUBIN,TOTAL 0.3 mg/dL (0.2-1.0); TOTAL PROTEIN, SERUM 7.6 g/dL (6.4-8.2)
[2016-11-14] MEDS ORDERED: FUROSEMIDE 20 MG/2 ML VIAL IV ONE (21:30)
--- NOTE | 2016-11-14 21:35 | NUR ---
Call placed to [facility] Nephrology, Dr. Izquierdo will be paged.
[2016-11-14] MEDS ORDERED: CALCIUM CHLORIDE 1 GM/10 ML DISP.SYRIN IVP ONE ×2 (21:45→22:04)
[2016-11-14] MEDS ORDERED: FUROSEMIDE 20 MG/2 ML VIAL ONE (21:46)
[2016-11-14] MEDS ORDERED: ACETAMINOPHEN ES 500 MG TABLET ONE (22:03)
[2016-11-14] MEDS ORDERED: ACETAMINOPHEN ES 500 MG TABLET PO ONE (22:15)
--- NOTE | 2016-11-14 22:24 | NUR ---
Pt. admitted to TELE , under care of Dr. LOBO Belongs List completed.
[2016-11-14 23:33] VITALS: BP 153/87
[2016-11-15 00:22] VITALS: BP 153/87
[2016-11-15] MEDS ORDERED: AZITHROMYCIN IV 500 MG in IV DEXTROSE 5% 250 ML IV SCH (00:45)
[2016-11-15] MEDS ORDERED: IPRATROPIUM BROMIDE 0.5 MG/2.5 ML NEBU NEB PRN (00:45)
[2016-11-15] MEDS ORDERED: ALBUTEROL SULFATE 2.5 MG/3 ML NEBU NEB PRN (00:45)
[2016-11-15] MEDS ORDERED: ENOXAPARIN SODIUM 40 MG/0.4 ML DISP.SYRIN SQ SCH ×2 (02:30→03:15)
[2016-11-15] MEDS ORDERED: AZITHROMYCIN 500 MG VIAL IV ONE (02:33)
[2016-11-15] MEDS ORDERED: FUROSEMIDE 40 MG/4 ML VIAL ONE (03:16)
[2016-11-15] MEDS: FUROSEMIDE 40 MG/4 ML VIAL IV SCH ×3 (03:51→20:27)
[2016-11-15 04:00] VITALS: BP 124/68
[2016-11-15] MEDS ORDERED: ALBUTEROL SULFATE 2.5 MG/ 0.5 ML NEBU NEB PRN (07:30)
--- NOTE | 2016-11-15 07:30 | NUR ---
on bed resting , denies chest pain. pleasant. no distress noted.
[2016-11-15] MEDS ORDERED: Z GUARD REMEDY PASTE 57 GM TUBE TOP PRN (07:45)
[2016-11-15] MEDS: LACTOBACILLUS RHAMNOSUS GG 1 EACH CAPSULE PO SCH ×2 (08:38→20:27)
[2016-11-15] MEDS: CALCIUM CARB/VITAMIN D 500MG-200UNITS TABLET PO SCH ×2 (08:38→17:29)
[2016-11-15] MEDS: PANTOPRAZOLE SODIUM 40 MG TABLET.DR PO SCH (08:38)
[2016-11-15] MEDS ORDERED: ASPIRIN 325 MG TABLET PO SCH (09:00)
[2016-11-15] MEDS ORDERED: FLUTICASONE/SALMETEROL 250/50 INHALER IH SCH (09:00)
[2016-11-15] MEDS: Z GUARD REMEDY PASTE 57 GM TUBE TOP SCH ×2 (09:19→20:29)
[2016-11-15] MEDS: FLUTICASONE/VILANTEROL 1 EACH BLST.W.DEV INH SCH (09:20)
[2016-11-15] MEDS: QUETIAPINE FUMARATE 25 MG TABLET PO SCH (09:51)
[2016-11-15] MEDS: ACETAMINOPHEN/CODEINE 300-30 MG TABLET PO PRN (09:53)
[2016-11-15] MEDS ORDERED: CLONIDINE-TTS 3 PATCH TD SCH (10:00)
--- NOTE | 2016-11-15 10:05 | NUR ---
back from gi lab, tolerated well. resting well, denies pain. vitals stable
[2016-11-15 10:22] LABS: *BILIRUBIN,URIN NEGATIVE (NEGATIVE); *BLOOD, URINE Trace-intact (NEGATIVE); *CLARITY,URINE CLEAR (CLEAR); *COLOR,URINE LIGHT YELLOW (YELLOW); *KETONES,URINE NEGATIVE (NEGATIVE); *PROTEIN,URINE NEGATIVE (NEGATIVE); *UROBILINOGEN,URINE 0.2 E.U./dl (NORMAL); LEUKOCYTE ESTERASE ,URINE 1+ (NEGATIVE); NITRITE, URINE NEGATIVE (NEGATIVE); UGLUCOSE NEGATIVE (NEGATIVE)
[2016-11-15] MEDS: SUCRALFATE 1 G/10 ML LIQUID UDC PO SCH ×2 (11:47→17:29)
[2016-11-15 11:55] VITALS: BP 125/86
[2016-11-15 12:03] LABS: BACTERIA,URINE FEW /HPF (NONE SEEN); RBC,URINE 0-3 /HPF (0-3); SQUAMOUS EPITHELIAL CELL,UR FEW /HPF (NONE SEEN)
[2016-11-15 15:52] VITALS: BP 88/51
--- NOTE | 2016-11-15 17:11 | NUR ---
noted redness antecubital area and neck redness and itchiness, no respiratory distress noted. dr Izquierdo aware, made order and carried out.
[2016-11-15] MEDS ORDERED: diphenhydrAMINE 25 MG CAP PO PRN (17:15)
[2016-11-15] MEDS: MONTELUKAST SODIUM 10 MG TABLET PO SCH (17:29)
--- NOTE | 2016-11-15 17:33 | NUR ---
family at bedside, supportive of patient care.
--- NOTE | 2016-11-15 18:42 | NUR ---
less redness on antecubital areas, less itchiness, no respiratory distress. effective use of benadryl
[2016-11-15 20:00] VITALS: BP 105/56
[2016-11-15] MEDS: TRAZODONE 50 MG TABLET PO SCH (20:26)
[2016-11-15] MEDS: SIMVASTATIN 10 MG TABLET PO SCH (20:27)
[2016-11-15] MEDS ORDERED: ZOLPIDEM 5 MG TABLET PO PRN (21:00)
[2016-11-15] MEDS ORDERED: ZOLPIDEM 5 MG TABLET PO SCH (21:00)
--- NOTE | 2016-11-15 22:34 | NUR ---
received patient awake, alert and oriented x4, only speaks palauan. on nc 2l o2 sats at 98% crackles on both right and left lung base with occasional non productive cough. vital signs are stable. left hand iv cath infiltrated, reinserted iv on rt forearm. SR on tele HR at 90's. Patients gets OOB using walker one assist. vital signs are stable. call light within reach.
[2016-11-16] VITALS: BP 130/63
[2016-11-16 04:00] VITALS: BP 102/43
[2016-11-16] MEDS ORDERED: ENOXAPARIN SODIUM 40 MG/0.4 ML DISP.SYRIN SQ SCH (04:00)
[2016-11-16] MEDS: AZITHROMYCIN IV 500 MG in IV DEXTROSE 5% 250 ML IV SCH (05:21)
[2016-11-16] MEDS: PANTOPRAZOLE SODIUM 40 MG TABLET.DR PO SCH (06:13)
--- NOTE | 2016-11-16 06:19 | NUR ---
patient slept good through the night. no other complaint no distress. call light within reach.
[2016-11-16 06:53] LABS: BASOPHILS % (AUTO) 0.6 % (0.0-2.0); EOSINOPHILS # (AUTO) 0.3 K/uL (0.0-0.7); EOSINOPHILS % (AUTO) 4.5 % (0.0-7.0); HEMATOCRIT 34.5 % (37-47); HEMOGLOBIN 11.5 G/DL (12.0-16.0); LYMPHOCYTES # (AUTO) 2.1 K/UL (0.8-4.8); LYMPHOCYTES % (AUTO) 31.9 % (20.5-51.5); MEAN CORPUSCULAR HEMOGLOBIN 27.5 UUG (27.0-31.0); MEAN CORPUSCULAR HGB CONC 33 g/dL (32.0-37.0); MEAN CORPUSCULAR VOLUME 82.6 FL (81.0-99.0); MONOCYTES # (AUTO) 0.8 K/UL (0.1-1.30); MONOCYTES % (AUTO) 11.8 % (0.0-11.0); NEUTROPHILS # (AUTO) 3.4 K/UL (1.8-8.9); NEUTROPHILS % (AUTO) 51.2 % (38.5-71.5); PLATELET COUNT (AUTO) 481 K/UL (150-450); RED BLOOD CELL COUNT(AUTO) 4.18 MIL/UL (4.2-5.4); WHITE BLOOD COUNT (AUTO) 6.6 K/UL (4.0-11.2)
[2016-11-16 07:10] LABS: IRON, SERUM 69 ug/dL (50-175)
[2016-11-16 07:38] LABS: ALANINE AMINOTRANSFERASE 18 U/L (14-59); ALKALINE PHOSPHATASE 89 U/L (50-136); ASPARTATE AMINOTRANSFERASE 18 U/L (15-37); BILIRUBIN,TOTAL 0.3 mg/dL (0.2-1.0); CARBON DIOXIDE 28 mmol/L (21-32); CHLORIDE 92 mmol/L (98-107); FERRITIN 38 ng/mL (8-252); GLUCOSE 132 mg/dL (74-106); MAGNESIUM 1.8 mg/dL (1.8-2.4); PHOSPHOROUS 4.8 mg/dL (2.5-4.9); TOTAL PROTEIN, SERUM 6.7 g/dL (6.4-8.2); UREA NITROGEN, BLOOD 26 mg/dL (7-18)
[2016-11-16] MEDS: SUCRALFATE 1 G/10 ML LIQUID UDC PO SCH ×3 (08:15→16:43)
--- NOTE | 2016-11-16 08:15 | NUR ---
AWAKE ALERT COOPERATIVE VERY LITTLE UZBEK BUT ABLE TO MAKE NEEDS KNOWN.DENIES PAIN OR DISCOMFORTS AT THIS TIME REMAIN ON O2 A WITH NO SHORTNESS OF BREATH AT THIS TIME TELE SR WITH NO ECTOPY AT THIS TIME WILL CONTINUE TO OBSERVE.
[2016-11-16] MEDS: QUETIAPINE FUMARATE 25 MG TABLET PO SCH (08:16)
[2016-11-16] MEDS: CALCIUM CARB/VITAMIN D 500MG-200UNITS TABLET PO SCH ×2 (08:16→16:43)
[2016-11-16] MEDS: LACTOBACILLUS RHAMNOSUS GG 1 EACH CAPSULE PO SCH ×2 (08:16→20:33)
[2016-11-16] MEDS: Z GUARD REMEDY PASTE 57 GM TUBE TOP SCH ×2 (08:17→20:33)
[2016-11-16] MEDS: FLUTICASONE/VILANTEROL 1 EACH BLST.W.DEV INH SCH (08:18)
[2016-11-16] MEDS: ASPIRIN 81 MG TAB.CHEW PO SCH (08:18)
[2016-11-16] MEDS: ENOXAPARIN SODIUM 30 MG/0.3 ML DISP.SYRIN SUBCUT SCH (08:25)
[2016-11-16 11:44] VITALS: BP 95/50
--- NOTE | 2016-11-16 14:00 | NUR ---
DR LOBO IS HERE TO SEE PATIENT AND WAS NOTIFIED THAT PATIENTS BLOOD PRESSURE IS LOW AT FIRST IT WAS 89/49 THEN PATIENT WAS PLACED ON [place] AND ITS CURRENTLY AT 95/49 WITH NO NEW ORDERS MD STATED THAT PATIENT ALWAYS FLUCTUATES..SHE IS ASSYMPTOMATIC.
--- NOTE | 2016-11-16 16:00 | NUR ---
BLOOD PRESSURE AT THIS TIME IS 75/39 PATIENT IS ALERT AWARE DENIES DISCOMFORTS NO SYMPTOMS NOTED PATIENT PLACED IN [place]BERG FOR 15 MINS AND BLOOD PRESSURE RECHECKED AND ITS 90/49 PATIENT STATED THAT SHE FEELS OKAY WILL CONTINUE TO OBSERVE.
[2016-11-16 16:15] VITALS: BP 90/49
[2016-11-16] MEDS: MONTELUKAST SODIUM 10 MG TABLET PO SCH (17:37)
--- NOTE | 2016-11-16 18:00 | NUR ---
RESTING EATING HER DINNER WITH HER O2 AT 2L/M BY NASAL CANNULA WITH NO C/O AT THIS TIME AND WILL CONTINUE TO OBSERVE.
--- NOTE | 2016-11-16 19:00 | NUR ---
RECEIVED IN BED NO SOB NO CHEST PAIN, RHYTHM SINUS RHYTHM CALL LIGHT WITHIN REACH, NO COMPLAIN OF PAIN.CONT TO MONITOR.
[2016-11-16] MEDS: SIMVASTATIN 10 MG TABLET PO SCH (20:33)
[2016-11-16 20:39] VITALS: BP 93/43
[2016-11-16] MEDS: TRAZODONE 50 MG TABLET PO SCH (22:48)
[2016-11-17 00:29] VITALS: BP 153/59
[2016-11-17] MEDS: ONDANSETRON HCL 4 MG TABLET PO PRN (02:17)
[2016-11-17 04:00] VITALS: BP 93/53
[2016-11-17] MEDS: AZITHROMYCIN IV 500 MG in IV DEXTROSE 5% 250 ML IV SCH (05:41)
--- NOTE | 2016-11-17 06:18 | NUR ---
PATIENT INTERMITTENTLY, NO SOB NO CHEST PAIN NOTED, NO COMPLAIN OF ANY OTHER PAIN, ZOFRAN GIVEN DUE TO N/V WITH HELP AFTER ONE HOUR. ASSISTED WITH TOILETING.,
[2016-11-17] MEDS: PANTOPRAZOLE SODIUM 40 MG TABLET.DR PO SCH (06:47)
[2016-11-17] MEDS: SUCRALFATE 1 G/10 ML LIQUID UDC PO SCH ×3 (08:32→16:17)
[2016-11-17] MEDS: QUETIAPINE FUMARATE 25 MG TABLET PO SCH (08:33)
[2016-11-17] MEDS: Z GUARD REMEDY PASTE 57 GM TUBE TOP SCH ×2 (08:33→21:40)
[2016-11-17] MEDS: LACTOBACILLUS RHAMNOSUS GG 1 EACH CAPSULE PO SCH ×2 (08:33→21:40)
[2016-11-17] MEDS: CALCIUM CARB/VITAMIN D 500MG-200UNITS TABLET PO SCH ×2 (08:33→16:17)
[2016-11-17] MEDS: ASPIRIN 81 MG TAB.CHEW PO SCH (08:33)
[2016-11-17] MEDS: FLUTICASONE/VILANTEROL 1 EACH BLST.W.DEV INH SCH (08:49)
[2016-11-17] MEDS: ENOXAPARIN SODIUM 30 MG/0.3 ML DISP.SYRIN SUBCUT SCH (09:00)
[2016-11-17] MEDS ORDERED: IV NORMAL SALINE 250 ML IV ONE (09:00)
[2016-11-17] MEDS ORDERED: IV NORMAL SALINE 250 ML BAG IV ONE (09:00)
--- NOTE | 2016-11-17 09:10 | NUR ---
NS BOLUS GIVEN ORDERED AND WILL OBSERVE BLOOD PRESSURE.
[2016-11-17 11:37] VITALS: BP 88/44
[2016-11-17] MEDS: MECLIZINE HCL 25 MG TABLET PO PRN (11:56)
[2016-11-17 15:08] VITALS: BP 87/43
[2016-11-17 16:31] VITALS: BP 109/49
--- NOTE | 2016-11-17 17:30 | NUR ---
BLOOD PRESSURE IS FLUCTUATING UP AND DOWN AND THE CURRENT IS 109/49 PATIENT IS RESTING WITH NO COMPLAINTS AT THIS TIME.
[2016-11-17] MEDS: MONTELUKAST SODIUM 10 MG TABLET PO SCH (17:34)
[2016-11-17 20:12] VITALS: BP 93/41
[2016-11-17] MEDS: TRAZODONE 50 MG TABLET PO SCH (21:40)
[2016-11-17] MEDS: SIMVASTATIN 10 MG TABLET PO SCH (21:41)
[2016-11-17] MEDS: ACETAMINOPHEN/CODEINE 300-30 MG TABLET PO PRN (21:41)
[2016-11-18 00:22] VITALS: BP 133/58
--- NOTE | 2016-11-18 02:43 | NUR ---
Patient had 2 seconds SVT, checked patient in room. Patient asleep & arousable, denies any pain. Addendum: 11/18/16 at 0420 by MARILIN ALCANTAR RN Pls. disregard above notes. Wrong entry.
[2016-11-18 04:00] VITALS: BP 127/59
--- NOTE | 2016-11-18 04:17 | NUR ---
Assisted to the bathroom via walker, patient voided.
[2016-11-18] MEDS: AZITHROMYCIN IV 500 MG in IV DEXTROSE 5% 250 ML IV SCH (05:18)
[2016-11-18] MEDS: SUCRALFATE 1 G/10 ML LIQUID UDC PO SCH ×3 (06:17→16:13)
[2016-11-18] MEDS: PANTOPRAZOLE SODIUM 40 MG TABLET.DR PO SCH (06:17)
[2016-11-18 06:28] LABS: BASOPHILS % (AUTO) 0.5 % (0.0-2.0); EOSINOPHILS # (AUTO) 0.3 K/uL (0.0-0.7); EOSINOPHILS % (AUTO) 4.5 % (0.0-7.0); HEMATOCRIT 31.2 % (31.2-41.9); HEMOGLOBIN 10.8 g/dL (10.9-14.3); LYMPHOCYTES # (AUTO) 2.4 K/uL (20.0-40.0); LYMPHOCYTES % (AUTO) 37.9 % (20.5-51.5); MEAN CORPUSCULAR HGB CONC 35 g/dL (32.3-35.6); MEAN CORPUSCULAR VOLUME 81.1 fL (75.5-95.3); MONOCYTES # (AUTO) 0.6 K/uL (2.0-10.0); MONOCYTES % (AUTO) 9.5 % (0.0-11.0); NEUTROPHILS % (AUTO) 47.6 % (38.5-71.5); PLATELET COUNT (AUTO) 434 K/uL (179-408); RED BLOOD CELL COUNT(AUTO) 3.85 MIL/uL (3.63-4.92); WHITE BLOOD COUNT (AUTO) 6.4 K/uL (3.8-11.8)
[2016-11-18 07:01] LABS: ALANINE AMINOTRANSFERASE 13 U/L (14-59); ALKALINE PHOSPHATASE 93 U/L (50-136); ASPARTATE AMINOTRANSFERASE 14 U/L (15-37); BILIRUBIN,TOTAL 0.3 mg/dL (0.2-1.0); CARBON DIOXIDE 29 mmol/L (21-32); CHLORIDE 88 mmol/L (98-107); GLUCOSE 117 mg/dL (74-106); MAGNESIUM 1.9 mg/dL (1.8-2.4); PHOSPHOROUS 4.1 mg/dL (2.5-4.9); POTASSIUM 4.7 mmol/L (3.5-5.1); TOTAL PROTEIN, SERUM 6.3 g/dL (6.4-8.2); UREA NITROGEN, BLOOD 35 mg/dL (7-18)
--- NOTE | 2016-11-18 07:45 | NUR ---
AWAKE ALERT IN BED DENIES PAIN OR DISCOMFORTS AT THIS TIME REMAIN ON IV ANTIBIOTICS ORDERED WITH NO ADVERSE OR ALLERGIC REACTIONS AT THIS TIMEPATIENT HAS O2 WITH SATS AT95 % MADE COMFORTABLEAND WILL OBSERVE.
[2016-11-18] MEDS: CALCIUM CARB/VITAMIN D 500MG-200UNITS TABLET PO SCH ×2 (08:49→16:13)
[2016-11-18] MEDS: ASPIRIN 81 MG TAB.CHEW PO SCH (08:49)
[2016-11-18] MEDS: QUETIAPINE FUMARATE 25 MG TABLET PO SCH (08:49)
[2016-11-18] MEDS: FLUTICASONE/VILANTEROL 1 EACH BLST.W.DEV INH SCH (08:50)
[2016-11-18] MEDS: Z GUARD REMEDY PASTE 57 GM TUBE TOP SCH ×2 (08:54→19:41)
[2016-11-18] MEDS: ENOXAPARIN SODIUM 30 MG/0.3 ML DISP.SYRIN SUBCUT SCH (08:59)
[2016-11-18] MEDS: LACTOBACILLUS RHAMNOSUS GG 1 EACH CAPSULE PO SCH ×2 (09:00→19:42)
--- NOTE | 2016-11-18 09:00 | NUR ---
PATIENT SEEN AND EXAMINED BY DR LOBO WITH NEW ORDERS AND NOTED.
[2016-11-18] MEDS: MECLIZINE HCL 25 MG TABLET PO PRN (11:43)
[2016-11-18 12:00] VITALS: BP 90/46
--- NOTE | 2016-11-18 12:00 | NUR ---
PATIENTY STATED FEELING DIZZY AT THIS TIME MEDICATED WITH ANTIVERT ORDERED
[2016-11-18] MEDS: ACETAMINOPHEN/CODEINE 300-30 MG TABLET PO PRN (15:10)
--- NOTE | 2016-11-18 15:10 | NUR ---
PATIENT COMPLAINING C/O HEADACHE MEDICATED WITH TYLENOL WITH CODEINE ORDERED AND HELPFUL.
[2016-11-18 15:13] LABS: *BILIRUBIN,URIN NEGATIVE (NEGATIVE); *BLOOD, URINE NEGATIVE (NEGATIVE); *CLARITY,URINE CLEAR (CLEAR); *COLOR,URINE YELLOW (YELLOW); *KETONES,URINE NEGATIVE (NEGATIVE); *PROTEIN,URINE NEGATIVE (NEGATIVE); *UROBILINOGEN,URINE 0.2 E.U./dl (NORMAL); LEUKOCYTE ESTERASE ,URINE 2+ (NEGATIVE); NITRITE, URINE NEGATIVE (NEGATIVE); UGLUCOSE NEGATIVE (NEGATIVE)
[2016-11-18 15:43] LABS: *CREATININE,URINE 61.4 mg/dL (30-125)
[2016-11-18 15:44] LABS: BACTERIA,URINE FEW /HPF (NONE SEEN); SQUAMOUS EPITHELIAL CELL,UR MODERATE /HPF (NONE SEEN)
[2016-11-18 16:01] VITALS: BP 88/50
[2016-11-18 16:30] VITALS: BP 92/49
[2016-11-18] MEDS: MONTELUKAST SODIUM 10 MG TABLET PO SCH (17:05)
--- NOTE | 2016-11-18 18:00 | NUR ---
RESTING IN BED DENIES PAIN OR DISCOMFORTS AT THIS TIEM.
[2016-11-18] MEDS: TRAZODONE 50 MG TABLET PO SCH (19:42)
[2016-11-18] MEDS: SIMVASTATIN 10 MG TABLET PO SCH (19:42)
[2016-11-18 20:43] VITALS: BP 95/69
[2016-11-19 05:21] VITALS: BP 116/68
[2016-11-19] MEDS: AZITHROMYCIN 250 MG TABLET PO SCH (06:04)
[2016-11-19] MEDS: SUCRALFATE 1 G/10 ML LIQUID UDC PO SCH ×3 (06:04→17:10)
[2016-11-19] MEDS: PANTOPRAZOLE SODIUM 40 MG TABLET.DR PO SCH (06:04)
--- NOTE | 2016-11-19 07:00 | NUR ---
No significant change, D/C tele last night. Vital signs WNL. No acute resp. distress.
--- NOTE | 2016-11-19 07:30 | NUR ---
Awake, alert, pleasant. O2 at 2l/NC, not in distress
[2016-11-19 07:37] LABS: THYROID STIMULATING HORMONE 3.338 mIU/mL (0.358-3.740)
[2016-11-19 07:47] LABS: CARBON DIOXIDE 27 mmol/L (21-32); CHLORIDE 91 mmol/L (98-107); CREATININE 1.4 mg/dL (0.6-1.3); GLUCOSE 103 mg/dL (74-106); MAGNESIUM 1.8 mg/dL (1.8-2.4); PHOSPHOROUS 4.2 mg/dL (2.5-4.9); POTASSIUM 4.7 mmol/L (3.5-5.1); UREA NITROGEN, BLOOD 26 mg/dL (7-18)
--- NOTE | 2016-11-19 09:00 | NUR ---
Noted nausea/vomiting with breakfast, held breakfast. Zofran po given with relief
[2016-11-19 09:05] LABS: URIC ACID 6.6 mg/dL (2.6-6.0)
[2016-11-19] MEDS: LACTOBACILLUS RHAMNOSUS GG 1 EACH CAPSULE PO SCH ×2 (09:08→20:52)
[2016-11-19] MEDS: FLUTICASONE/VILANTEROL 1 EACH BLST.W.DEV INH SCH (09:08)
[2016-11-19] MEDS: ASPIRIN 81 MG TAB.CHEW PO SCH (09:08)
[2016-11-19] MEDS: QUETIAPINE FUMARATE 25 MG TABLET PO SCH (09:09)
[2016-11-19] MEDS: SODIUM CHLORIDE 1,000 MG TABLET PO SCH ×3 (09:09→17:10)
[2016-11-19] MEDS: CALCIUM CARB/VITAMIN D 500MG-200UNITS TABLET PO SCH ×2 (09:09→17:10)
[2016-11-19] MEDS: ONDANSETRON HCL 4 MG TABLET PO PRN (09:10)
[2016-11-19] MEDS: Z GUARD REMEDY PASTE 57 GM TUBE TOP SCH ×2 (09:10→20:53)
[2016-11-19] MEDS: ENOXAPARIN SODIUM 30 MG/0.3 ML DISP.SYRIN SUBCUT SCH (09:11)
[2016-11-19 11:30] VITALS: BP 98/55
--- NOTE | 2016-11-19 13:00 | NUR ---
Tolerated lunch, with no nausea and vomiting
[2016-11-19 15:54] VITALS: BP 96/49
--- NOTE | 2016-11-19 16:00 | NUR ---
Assisted to the bathroom with walker. No BM noted.
[2016-11-19] MEDS: MONTELUKAST SODIUM 10 MG TABLET PO SCH (17:10)
--- NOTE | 2016-11-19 18:15 | NUR ---
Kept dry and comfortable. Redirected anxiety.
[2016-11-19 20:40] VITALS: BP_SYST 149; BP_SYST 159; BP_DIAS 63; BP_DIAS 64
[2016-11-19] MEDS: ACETAMINOPHEN/CODEINE 300-30 MG TABLET PO PRN (20:52)
[2016-11-19] MEDS: SIMVASTATIN 10 MG TABLET PO SCH (20:52)
[2016-11-19] MEDS: TRAZODONE 50 MG TABLET PO SCH (20:52)
[2016-11-20 04:47] VITALS: BP 142/57
[2016-11-20] MEDS: AZITHROMYCIN 250 MG TABLET PO SCH (05:36)
[2016-11-20] MEDS: SUCRALFATE 1 G/10 ML LIQUID UDC PO SCH ×3 (05:36→17:18)
[2016-11-20] MEDS: PANTOPRAZOLE SODIUM 40 MG TABLET.DR PO SCH (05:36)
[2016-11-20 06:21] LABS: ALANINE AMINOTRANSFERASE 18 U/L (14-59); ALKALINE PHOSPHATASE 91 U/L (50-136); ASPARTATE AMINOTRANSFERASE 17 U/L (15-37); BILIRUBIN,TOTAL 0.2 mg/dL (0.2-1.0); CARBON DIOXIDE 29 mmol/L (21-32); CHLORIDE 94 mmol/L (98-107); CREATININE 1.4 mg/dL (0.6-1.3); GLUCOSE 112 mg/dL (74-106); MAGNESIUM 2.3 mg/dL (1.8-2.4); PHOSPHOROUS 3.5 mg/dL (2.5-4.9); POTASSIUM 4.8 mmol/L (3.5-5.1); TOTAL PROTEIN, SERUM 6.7 g/dL (6.4-8.2); UREA NITROGEN, BLOOD 21 mg/dL (7-18)
--- NOTE | 2016-11-20 07:00 | NUR ---
No significant change. Patient c/o constipation, Prune juice provided, attended w/ all needs. Will continue to monitor.
[2016-11-20] MEDS ORDERED: LEVO250T2 PO (08:42)
[2016-11-20] MEDS: ENOXAPARIN SODIUM 30 MG/0.3 ML DISP.SYRIN SUBCUT SCH (08:56)
[2016-11-20] MEDS: SODIUM CHLORIDE 1,000 MG TABLET PO SCH ×3 (08:58→17:18)
[2016-11-20] MEDS: ASPIRIN 81 MG TAB.CHEW PO SCH (08:58)
[2016-11-20] MEDS: QUETIAPINE FUMARATE 25 MG TABLET PO SCH (08:58)
[2016-11-20] MEDS: CALCIUM CARB/VITAMIN D 500MG-200UNITS TABLET PO SCH ×2 (08:58→17:18)
[2016-11-20] MEDS: LACTOBACILLUS RHAMNOSUS GG 1 EACH CAPSULE PO SCH (08:58)
[2016-11-20] MEDS ORDERED: LEVOFLOXACIN 250 MG TABLET PO SCH (09:00)
[2016-11-20] MEDS: Z GUARD REMEDY PASTE 57 GM TUBE TOP SCH (10:25)
[2016-11-20] MEDS: FLUTICASONE/VILANTEROL 1 EACH BLST.W.DEV INH SCH (10:26)
[2016-11-20 11:07] VITALS: BP 157/73
[2016-11-20 11:32] LABS: BASOPHILS # (AUTO) 0.1 K/uL (0.0-8.0); BASOPHILS % (AUTO) 1.8 % (0.0-2.0); EOSINOPHILS # (AUTO) 0.2 K/uL (0.0-0.7); EOSINOPHILS % (AUTO) 2.7 % (0.0-7.0); HEMATOCRIT 34.8 % (37-47); HEMOGLOBIN 11.4 G/DL (12.0-16.0); LYMPHOCYTES # (AUTO) 1.8 K/UL (0.8-4.8); MEAN CORPUSCULAR HEMOGLOBIN 27.2 UUG (27.0-31.0); MEAN CORPUSCULAR HGB CONC 33 g/dL (32.0-37.0); MEAN CORPUSCULAR VOLUME 82.9 FL (81.0-99.0); MONOCYTES # (AUTO) 0.6 K/UL (0.1-1.30); NEUTROPHILS # (AUTO) 4.7 K/UL (1.8-8.9); NEUTROPHILS % (AUTO) 62.5 % (38.5-71.5); PLATELET COUNT (AUTO) 527 K/UL (150-450); WHITE BLOOD COUNT (AUTO) 7.4 K/UL (4.0-11.2)
--- NOTE | 2016-11-20 14:24 | NUR ---
Received patient awake and alert in bed. No SOB noted. O2 @ 2L via nasal cannula. Toleraterating well. Abdomen soft. Bowel sounds present in all 4 quads. IV 20g in left forearm. No redness or swelling at insertion site. Patinet denies any pain or discomfort at insertion site. Call light within reach. Will continue to observe.
[2016-11-20 15:00] VITALS: BP 116/65
[2016-11-20] MEDS: MONTELUKAST SODIUM 10 MG TABLET PO SCH (17:18)
--- NOTE | 2016-11-20 18:37 | NUR ---
Patient discharged to home with all belongings and discharge paperwork. Patient was accompiened by daughter.
== END 2016-11-20 18:40 | disposition home or self-care (01) | DRG 291 ==
LOC: ER 20:02 → TELE 22:29 → MED 11-18 20:00
PROVIDERS: ADMIT Internal Medicine; ATTEND Internal Medicine
DX: I13.0 Hypertensive heart and chronic kidney disease with heart failure and stage 1 through stage 4 chronic kidney disease, or unspecified chronic kidney disease (principal); I50.33 Acute on chronic diastolic (congestive) heart failure; N17.0 Acute kidney failure with tubular necrosis; E22.2 Syndrome of inappropriate secretion of antidiuretic hormone; E86.9 Volume depletion, unspecified; J44.0 Chronic obstructive pulmonary disease with (acute) lower respiratory infection; E87.5 Hyperkalemia; K22.0 Achalasia of cardia; J44.1 Chronic obstructive pulmonary disease with (acute) exacerbation; N39.0 Urinary tract infection, site not specified; K29.60 Other gastritis without bleeding; J20.9 Acute bronchitis, unspecified; D50.0 Iron deficiency anemia secondary to blood loss (chronic); K21.9 Gastro-esophageal reflux disease without esophagitis; K44.9 Diaphragmatic hernia without obstruction or gangrene; Z79.899 Other long term (current) drug therapy; Z79.82 Long term (current) use of aspirin; N18.9 Chronic kidney disease, unspecified; T43.505A Adverse effect of unspecified antipsychotics and neuroleptics, initial encounter; B96.20 Unspecified Escherichia coli [E. coli] as the cause of diseases classified elsewhere; Z16.11 Resistance to penicillins; Z16.29 Resistance to other single specified antibiotic; K22.8 Other specified diseases of esophagus; E78.5 Hyperlipidemia, unspecified; D75.89 Other specified diseases of blood and blood-forming organs; M19.90 Unspecified osteoarthritis, unspecified site; F03.90 Unspecified dementia, unspecified severity, without behavioral disturbance, psychotic disturbance, mood disturbance, and anxiety; K22.70 Barrett's esophagus without dysplasia
CPT/HCPCS: 36415; 70030-TC; 71010; 76770; 82533; 83550; 83605; 83735; 84100; 84156; 84300; 84443; 84550; 85025; 85730; 87040; 87086; 93005; 93307; A4663; J0456; J1650; J1940; J3490; J3590; J7050; J7060; J8597; Q0144; Q0162; Q0163

== ENCOUNTER 2017-04-17 22:34 | Inpatient (IN) | payer MEDICARE, MEDICAID ==
[~2017-04-17] VITALS: Ht 144.8 cm; Wt 58.5 kg
[~2017-04-17 22:34] MED LIST changes: +LEVO250T2 PO; -SPIR50TA3 PO; -VALS160T2 PO
--- NOTE | 2017-04-18 00:20 | NUR ---
Dr. Quevedo at bedside for MSE.
[2017-04-18] MEDS ORDERED: ONDANSETRON 4 MG/2 ML VIAL IV ONE (00:45)
[2017-04-18] MEDS ORDERED: HYDROMORPHONE 1 MG/1 ML DISP.SYRIN IV ONE (00:45)
[2017-04-18] MEDS ORDERED: LABETALOL HCL 100 MG/20 ML VIAL IV ONE (00:45)
[2017-04-18] MEDS ORDERED: IV NORMAL SALINE 1000 ML BAG IV ONE (00:45)
[2017-04-18] MEDS ORDERED: ONDANSETRON 4 MG/2 ML VIAL ONE ×2 (01:12→03:08)
[2017-04-18] MEDS ORDERED: hydrALAZINE HCL 20 MG/1 ML VIAL IV ONE (01:15)
[2017-04-18] MEDS ORDERED: HYDROMORPHONE 4 MG/1 ML DISP.SYRIN ONE (01:17)
[2017-04-18] MEDS ORDERED: hydrALAZINE HCL 20 MG/1 ML VIAL ONE (01:19)
--- NOTE | 2017-04-18 01:25 | NUR ---
Silvia seth in ED - 04/18/17 at [address] Quevedo at [facility] for MSE.
--- NOTE | 2017-04-18 01:35 | NUR ---
Patient out of ER from CT.
[2017-04-18 01:39] LABS: CARBON DIOXIDE 26 mmol/L (21-32); CHLORIDE 97 mmol/L (98-107); GLUCOSE 151 mg/dL (74-106); POTASSIUM 3.7 mmol/L (3.5-5.1); UREA NITROGEN, BLOOD 18 mg/dL (7-18)
[2017-04-18 01:44] LABS: BASOPHILS % (AUTO) 0.3 % (0.0-2.0); EOSINOPHILS % (AUTO) 0.1 % (0.0-7.0); HEMATOCRIT 37.9 % (31.2-41.9); HEMOGLOBIN 12.8 g/dL (10.9-14.3); LYMPHOCYTES % (AUTO) 10.4 % (20.5-51.5); MEAN CORPUSCULAR HEMOGLOBIN 29.1 uug (24.7-32.8); MEAN CORPUSCULAR HGB CONC 34 g/dL (32.3-35.6); MEAN CORPUSCULAR VOLUME 85.9 fL (75.5-95.3); MONOCYTES # (AUTO) 0.6 K/uL (2.0-10.0); NEUTROPHILS # (AUTO) 8.4 K/uL (1.8-8.9); NEUTROPHILS % (AUTO) 83.2 % (38.5-71.5); PLATELET COUNT (AUTO) 298 K/uL (179-408); RED BLOOD CELL COUNT(AUTO) 4.41 MIL/uL (3.63-4.92); WHITE BLOOD COUNT (AUTO) 10.1 K/uL (3.8-11.8)
--- NOTE | 2017-04-18 01:53 | NUR ---
Patient back to ER from CT.
[2017-04-18 01:55] LABS: ALANINE AMINOTRANSFERASE 28 U/L (14-59); ALKALINE PHOSPHATASE 97 U/L (50-136); ASPARTATE AMINOTRANSFERASE 21 U/L (15-37); BILIRUBIN,DIRECT 0.1 mg/dL (0.0-0.2); BILIRUBIN,TOTAL 0.4 mg/dL (0.2-1.0); TOTAL PROTEIN, SERUM 7.4 g/dL (6.4-8.2)
--- NOTE | 2017-04-18 01:55 | NUR ---
Pt states still nauseous and still has pain on her head and neck. MD notified.
[2017-04-18] MEDS ORDERED: ONDANSETRON IV *ER 4 MG/2 ML VIAL IV ONE (03:00)
[2017-04-18 03:05] LABS: LIPASE 92 U/L (73-393)
[2017-04-18] MEDS ORDERED: MORPHINE SULFATE 2 MG/1 ML DISP.SYRIN IV ONE (03:30)
[2017-04-18] MEDS ORDERED: FUROSEMIDE 20 MG/2 ML VIAL IV ONE (03:30)
[2017-04-18] MEDS ORDERED: FUROSEMIDE 40 MG/4 ML VIAL ONE (03:31)
[2017-04-18] MEDS ORDERED: MORPHINE SULFATE 4 MG/1 ML DISP.SYRIN ONE (03:32)
--- NOTE | 2017-04-18 04:15 | NUR ---
Dr. Boggs on phone call with Dr. Quevedo.
--- NOTE | 2017-04-18 04:20 | NUR ---
Telephone orders from Dr. Boggs taken.
[2017-04-18 05:02] LABS: *BILIRUBIN,URIN NEGATIVE (NEGATIVE); *BLOOD, URINE NEGATIVE (NEGATIVE); *CLARITY,URINE SLIGHTLY CLOUDY (CLEAR); *COLOR,URINE YELLOW (YELLOW); *KETONES,URINE TRACE (NEGATIVE); *PROTEIN,URINE 2+ (NEGATIVE); *UROBILINOGEN,URINE 0.2 E.U./dl (NORMAL); LEUKOCYTE ESTERASE ,URINE NEGATIVE (NEGATIVE); NITRITE, URINE POSITIVE (NEGATIVE); PH,URINE 6.5 (5.0-8.0); UGLUCOSE NEGATIVE (NEGATIVE)
--- NOTE | 2017-04-18 05:11 | NUR ---
Passed report to Ceci CONNER Tele.
[2017-04-18 05:13] LABS: BACTERIA,URINE MANY /HPF (NONE SEEN); RBC,URINE 0-3 /HPF (0-3); SQUAMOUS EPITHELIAL CELL,UR FEW /HPF (NONE SEEN)
--- NOTE | 2017-04-18 05:45 | NUR ---
RECEIVED PT FROM ER VIA [facility]. PT ADMIT FOR TELE. DX:HEART FAILURE. BELONGING LIST DONE. ADMISSION PROCESS AND CARE PLAN INITIATED, NEW ADMISSION. SAFETY AND COMFORT PROVIDED. CALL LIGHT WITHIN REACH. WILL CONTINUE TO MONITOR.
[2017-04-18 06:00] VITALS: BP 174/81
[2017-04-18] MEDS: ONDANSETRON 4 MG/2 ML VIAL IV PRN ×2 (06:31→11:11)
[2017-04-18] MEDS: PANTOPRAZOLE SODIUM 40 MG TABLET.DR PO SCH (07:00)
--- NOTE | 2017-04-18 07:15 | NUR ---
ENDORSED SHIFT REPORT GIVEN TO AM NURSE. PT IN APPARENTLY FAIR CONDITION.ALERT, ORIENTEDX3. VERIFIED CODE STATUS, PT WISH TO BE FULL CODE.
[2017-04-18 08:02] LABS: BASOPHILS % (AUTO) 0.4 % (0.0-2.0); HEMATOCRIT 39.7 % (31.2-41.9); HEMOGLOBIN 13.3 g/dL (10.9-14.3); LYMPHOCYTES # (AUTO) 0.5 K/uL (20.0-40.0); LYMPHOCYTES % (AUTO) 4.1 % (20.5-51.5); MEAN CORPUSCULAR HEMOGLOBIN 28.6 uug (24.7-32.8); MEAN CORPUSCULAR HGB CONC 34 g/dL (32.3-35.6); MEAN CORPUSCULAR VOLUME 85.4 fL (75.5-95.3); MONOCYTES # (AUTO) 0.7 K/uL (2.0-10.0); MONOCYTES % (AUTO) 5.4 % (0.0-11.0); NEUTROPHILS # (AUTO) 11.8 K/uL (1.8-8.9); NEUTROPHILS % (AUTO) 90.1 % (38.5-71.5); PLATELET COUNT (AUTO) 351 K/uL (179-408); RED BLOOD CELL COUNT(AUTO) 4.65 MIL/uL (3.63-4.92)
[2017-04-18] MEDS: FUROSEMIDE 40 MG/4 ML VIAL IV SCH ×2 (08:03→20:19)
[2017-04-18] MEDS: CLONIDINE HCL 0.1 MG TABLET PO PRN (08:03)
[2017-04-18 08:07] LABS: WHITE BLOOD COUNT (AUTO) 13.1 K/uL (3.8-11.8)
--- NOTE | 2017-04-18 08:07 | NUR ---
PT BP 179/84 CLONIDINE GIVEN. MONITOR PT.
[2017-04-18] MEDS ORDERED: ONDANSETRON HCL 4 MG TABLET PO PRN (08:15)
[2017-04-18] MEDS ORDERED: ACETAMINOPHEN/CODEINE 300-30 MG TABLET PO PRN (08:15)
[2017-04-18] MEDS ORDERED: Z GUARD REMEDY PASTE 57 GM TUBE TOP PRN (08:15)
[2017-04-18] MEDS: SPIRONOLACTONE 50 MG TABLET PO SCH (09:00)
[2017-04-18] MEDS: CLOPIDOGREL 75 MG TABLET PO SCH (09:00)
[2017-04-18] MEDS: CALCIUM CARB/VITAMIN D 500MG-200UNITS TABLET PO SCH ×2 (09:00→17:00)
[2017-04-18] MEDS: VALSARTAN 160 MG TABLET PO SCH (09:00)
[2017-04-18] MEDS ORDERED: ASPIRIN 325 MG TABLET PO SCH (09:00)
[2017-04-18] MEDS: QUETIAPINE FUMARATE 25 MG TABLET PO SCH (09:00)
[2017-04-18] MEDS: LACTOBACILLUS RHAMNOSUS GG 1 EACH CAPSULE PO SCH ×2 (09:00→20:22)
[2017-04-18] MEDS ORDERED: FLUTICASONE/SALMETEROL 250/50 INHALER IH SCH (09:00)
[2017-04-18] MEDS ORDERED: MECLIZINE HCL 25 MG TABLET PO PRN (09:00)
[2017-04-18] MEDS ORDERED: ENALAPRILAT DIHYDRATE INJ 2.5 MG in IV NORMAL SALINE 50 ML IV PRN (09:15)
[2017-04-18] MEDS: METOPROLOL SUCCINATE XL 25 MG TAB.SR.24H PO SCH (09:15)
[2017-04-18] MEDS: FLUTICASONE/VILANTEROL 1 EACH BLST.W.DEV INH SCH (09:51)
[2017-04-18] MEDS: Z GUARD REMEDY PASTE 57 GM TUBE TOP SCH ×2 (10:00→20:26)
[2017-04-18] MEDS ORDERED: CLONIDINE-TTS 3 PATCH TD SCH (10:00)
--- NOTE | 2017-04-18 10:07 | NUR ---
CLONIDINE NOT AFFECTIVE. BP 181/87 HEART RATE RANGE 130-150. MD NOTIFIED. VASOTEC IV AND CATAPRES-TTS PATCH GIVEN PER MD ORDER. PT CONTINUES TO VOMIT. 6 EMESIS YELLOW/ GREEN IN COLOR, CLEAR. ORAL MEDS HELD DUE TO N/V. ZOFRAN GIVEN IN AM, NOT TIME FOR NEXT DOSE. MD NOTIFIED. CONTINUE TO MONITOR PT.
[2017-04-18] MEDS ORDERED: LEVOFLOXACIN 500 MG/D5W 500 MG in PREMIXED 1 EACH IV SCH (11:00)
[2017-04-18] MEDS: SUCRALFATE 1 G/10 ML LIQUID UDC PO SCH ×2 (11:03→16:30)
--- NOTE | 2017-04-18 11:11 | NUR ---
PT HAD 4 EPISODES OF EMESIS COLOR BROWN,DARK, THICK PT GIVEN ZOFRAN. MEDICATION EFFECTIVE. MD NOTIFIED.
[2017-04-18] MEDS: MORPHINE SULFATE 4 MG/1 ML DISP.SYRIN IV PRN ×2 (11:28→20:26)
[2017-04-18] MEDS ORDERED: MORPHINE SULFATE 2 MG/1 ML DISP.SYRIN IV PRN (11:30)
[2017-04-18 11:40] VITALS: BP 149/80
[2017-04-18 14:30] VITALS: BP 152/70
[2017-04-18] MEDS: METRONIDAZOLE 500 MG/NS 100ML 500 MG in PREMIXED 1 EACH IV SCH ×2 (14:47→21:25)
[2017-04-18] MEDS: MONTELUKAST SODIUM 10 MG TABLET PO SCH (17:16)
--- NOTE | 2017-04-18 17:16 | NUR ---
PT REFUSED MEDICATION DUE TO N/V. PT HAS NOT HAD A EMESIS BUT CONTINUES TO BE NAUSEOUS
--- NOTE | 2017-04-18 18:21 | NUR ---
PT OBSERVED RESTING IN BED. NO N/V AT THIS TIME. PT HAD A TOTAL OF 10 EMESIS THIS SHIFT. PT REFUSED PO MEDS DUE TO N/V. PT AGREED TO TAKE NIGHT MEDS. PT HAS NOT EATEN A MEAL BUT HAS HAD ICE CHIPS AND SMALL SIPS OF WATER. PT HAS NO SIGNS OR RESPIRATORY DISTRESS. PT REFUSED TO BE WEIGHED STATING, " I'M TOO WEAK TO GET OUT OF BED, I WILL FALL". CONTINUE TO MONITOR PT.
--- NOTE | 2017-04-18 19:23 | NUR ---
PT AAOX4. KINYARWANDA SPEAKING ONLY. REPORTED MILD NECK PAIN BUT TOLERABLE AT THIS TIME. O2 AT 2LPM VIA NC IN PLACE. NOT IN ACUTE DISTRESS. IV SITE INTACT AND PATENT. HYDE CATHETER INTACT AND DRAINING VIA GRAVITY. WITH CLEAR YELLOW URINE OUTPUT ON URINARY BAG. DENIES ANY NAUSEA AT THIS TIME. SR ON TELE 93/MIN. SAFETY MEASURE INITIATED AND CALL GARCIA WITHIN REACHED.
[2017-04-18 20:20] VITALS: BP 162/74
[2017-04-18] MEDS: TRAZODONE 50 MG TABLET PO SCH (20:22)
[2017-04-18] MEDS: SIMVASTATIN 10 MG TABLET PO SCH (20:23)
--- NOTE | 2017-04-18 21:00 | NUR ---
PT WITH 1 EPISODE OF V TACH ON TELE LASTING 10 SECONDS. PT ASYMPTOMATIC. TC TO DOCTOR KAM AND INFORMED WITH ORDER TO DO STAT BMP AND MAGNESIUM LEVEL. ORDER READ BACK, VERIFIED AND CARRIED OUT.
[2017-04-18 21:23] LABS: CARBON DIOXIDE 32 mmol/L (21-32); CHLORIDE 95 mmol/L (98-107); CREATININE 1.2 mg/dL (0.6-1.3); GLUCOSE 117 mg/dL (74-106); MAGNESIUM 1.6 mg/dL (1.8-2.4); UREA NITROGEN, BLOOD 16 mg/dL (7-18)
--- NOTE | 2017-04-18 22:25 | NUR ---
INFORM DOCTOR KAM RESULT OF STAT BMP AND MAGNESIUM LEVEL WITH NEW ORDERS MADE. ORDERS READ BACK, VERIFIED AND CARRIED OUT.
[2017-04-18] MEDS ORDERED: POTASSIUM CHLORIDE 50 ML IV SCH (23:15)
[2017-04-18] MEDS: MAGNESIUM SULFATE/D5W 100 ML IV SCH (23:43)
[2017-04-18] MEDS ORDERED: POTASSIUM CHLORIDE 50 ML ONE (23:50)
[2017-04-19] MEDS: CLONIDINE HCL 0.1 MG TABLET PO PRN (00:02)
[2017-04-19] MEDS: MORPHINE SULFATE 4 MG/1 ML DISP.SYRIN IV PRN (00:03)
[2017-04-19] MEDS: MAGNESIUM SULFATE/D5W 100 ML IV SCH (00:55)
--- NOTE | 2017-04-19 01:02 | NUR ---
PT BP DOWN FROM 181/83 TO 153/73
[2017-04-19] MEDS ORDERED: POTASSIUM CHLORIDE 50 ML IV SCH (01:30)
[2017-04-19] MEDS: POTASSIUM CHLORIDE 10 MEQ in IV NORMAL SALINE 50 ML IV SCH ×6 (02:01→08:55)
[2017-04-19 04:00] VITALS: BP 157/81
--- NOTE | 2017-04-19 06:05 | NUR ---
AAOx4. Albanian speaking only. Not in acute distress. Pain on neck area manage with Morphine PRN. O2 at 2LPM via NC in place. O2 sat at 96%. SR on tele, 86/min. Left AC IV intact and patent. FC intact and draining via gravity. Safety measure maintained and call santana within reach.
[2017-04-19 06:10] LABS: BASOPHILS # (AUTO) 0.1 K/uL (0.0-8.0); BASOPHILS % (AUTO) 0.6 % (0.0-2.0); CARBON DIOXIDE 34 mmol/L (21-32); CHLORIDE 96 mmol/L (98-107); CREATININE 1.1 mg/dL (0.6-1.3); EOSINOPHILS % (AUTO) 0.4 % (0.0-7.0); GLUCOSE 119 mg/dL (74-106); HEMATOCRIT 42.5 % (31.2-41.9); HEMOGLOBIN 14.1 g/dL (10.9-14.3); LYMPHOCYTES # (AUTO) 1.5 K/uL (20.0-40.0); LYMPHOCYTES % (AUTO) 14.8 % (20.5-51.5); MAGNESIUM 2.5 mg/dL (1.8-2.4); MEAN CORPUSCULAR HEMOGLOBIN 28.6 uug (24.7-32.8); MEAN CORPUSCULAR HGB CONC 33 g/dL (32.3-35.6); MEAN CORPUSCULAR VOLUME 85.8 fL (75.5-95.3); MONOCYTES # (AUTO) 1.3 K/uL (2.0-10.0); MONOCYTES % (AUTO) 13.1 % (0.0-11.0); NEUTROPHILS # (AUTO) 7.3 K/uL (1.8-8.9); NEUTROPHILS % (AUTO) 71.1 % (38.5-71.5); PHOSPHOROUS 3.6 mg/dL (2.5-4.9); PLATELET COUNT (AUTO) 373 K/uL (179-408); POTASSIUM 3.4 mmol/L (3.5-5.1); RED BLOOD CELL COUNT(AUTO) 4.95 MIL/uL (3.63-4.92); UREA NITROGEN, BLOOD 14 mg/dL (7-18); WHITE BLOOD COUNT (AUTO) 10.3 K/uL (3.8-11.8)
[2017-04-19] MEDS: PANTOPRAZOLE SODIUM 40 MG TABLET.DR PO SCH ×2 (06:10→08:02)
[2017-04-19] MEDS: METRONIDAZOLE 500 MG/NS 100ML 500 MG in PREMIXED 1 EACH IV SCH ×3 (06:37→22:02)
[2017-04-19] MEDS: SUCRALFATE 1 G/10 ML LIQUID UDC PO SCH ×3 (07:54→17:19)
[2017-04-19] MEDS: CALCIUM CARB/VITAMIN D 500MG-200UNITS TABLET PO SCH ×2 (08:01→17:19)
[2017-04-19] MEDS: LACTOBACILLUS RHAMNOSUS GG 1 EACH CAPSULE PO SCH ×2 (08:01→20:26)
[2017-04-19] MEDS: QUETIAPINE FUMARATE 25 MG TABLET PO SCH (08:01)
[2017-04-19] MEDS: VALSARTAN 160 MG TABLET PO SCH (08:01)
[2017-04-19] MEDS: FUROSEMIDE 40 MG/4 ML VIAL IV SCH (08:01)
[2017-04-19] MEDS: SPIRONOLACTONE 50 MG TABLET PO SCH (08:02)
[2017-04-19] MEDS: METOPROLOL SUCCINATE XL 25 MG TAB.SR.24H PO SCH (08:02)
[2017-04-19] MEDS: Z GUARD REMEDY PASTE 57 GM TUBE TOP SCH ×2 (08:09→22:08)
[2017-04-19] MEDS: CLOPIDOGREL 75 MG TABLET PO SCH (08:10)
[2017-04-19] MEDS: FLUTICASONE/VILANTEROL 1 EACH BLST.W.DEV INH SCH (08:10)
[2017-04-19] MEDS: ONDANSETRON 4 MG/2 ML VIAL IV PRN (09:02)
[2017-04-19] MEDS: LEVOFLOXACIN/D5W 250 MG in PREMIX 1 EA IV SCH (11:14)
[2017-04-19 11:31] VITALS: BP 96/58
[2017-04-19] MEDS: ERYTHROMYCIN ETHYLSUCC 200 MG/5 ML SUSPENSION 100ML PO SCH ×2 (13:30→22:01)
--- NOTE | 2017-04-19 13:30 | NUR ---
PT REFUSED ERYTHROMYCIN BECAUSE SHE STATES THAT ORAL MEDS MAKE HER WANT TO VOMIT. MED HELD. WILL ATTMEPT TO GIVE AT A LATER TIME.
[2017-04-19 15:12] VITALS: BP 134/68
--- NOTE | 2017-04-19 15:32 | NUR ---
PT STATES, " I WON'T BE ABLE TO KEEP THE MED DOWN... I CAN TRY LATER". PT REFUSED THE ERYTHROMYCIN AT THIS TIME.
[2017-04-19] MEDS: MONTELUKAST SODIUM 10 MG TABLET PO SCH (17:19)
--- NOTE | 2017-04-19 18:21 | NUR ---
PT OBSERVED SLEEPING IN BED, EASILY AROUSABLE, BREATHING EQUALLY NO S/S OF RESPIRATORY DISTRESS. PT CALM, MEDICATION COMPLIANT WHEN NOT EXPERIENCING N/V. PT WAS ABLE TO TOLERATE CLEAR LIQUID DIET DURING BREAKFAST. IV INTACT AND PATENT. PT BED IN LOWEST LOCKED POSITION, WEARING NONSKID SOCKS. PT IS NOT STABLE ENOUGH AT THIS TIME TO STAND OUT OF BED TO TAKE DAILY WEIGHT. PT REFUSES STATING, " I'M STILL TOO WEAK TO STAND, I'M A AFRAID TO FALL"
--- NOTE | 2017-04-19 18:50 | NUR ---
PT WEIGHS 127LBS. BED WAS USED TO WEIGH THE PT.
--- NOTE | 2017-04-19 19:30 | NUR ---
RECEIVED IN BED ALERT BUT FORGETFUL, NO SOB NO CHEST PAIN NOTED, HYDE CATH PATENT DRAINING WITH YELLOW COLOR URINE IN MODERATE AMOUNT, COMPLAIN OF HEADACHES, WILL MEDICATED ORDERED. CALL LIGHT WITHIN REACH.
[2017-04-19 20:26] VITALS: BP 120/53
[2017-04-19] MEDS: SIMVASTATIN 10 MG TABLET PO SCH (20:26)
[2017-04-19] MEDS: TRAZODONE 50 MG TABLET PO SCH (20:26)
[2017-04-19] MEDS: ACETAMINOPHEN 650 MG/20.3 ML LIQUID UDC PO PRN (20:27)
[2017-04-20] MEDS: MORPHINE SULFATE 4 MG/1 ML DISP.SYRIN IV PRN (03:33)
[2017-04-20 04:44] VITALS: BP 154/71
[2017-04-20] MEDS: METRONIDAZOLE 500 MG/NS 100ML 500 MG in PREMIXED 1 EACH IV SCH ×3 (05:18→22:08)
--- NOTE | 2017-04-20 05:55 | NUR ---
PATIENT SLEPT ON AND OFF LAST NIGHT NO SOB NO CHEST PAIN, NAUSEA NO VOMITING NOTED, CONT ON PAIN MANAGEMENT OF HEAD AND NECK, CONT ON CLEAR LIQUID DIET. CONT TO MONITOR.
[2017-04-20] MEDS: SUCRALFATE 1 G/10 ML LIQUID UDC PO SCH ×3 (06:17→17:28)
--- NOTE | 2017-04-20 07:45 | NUR ---
Awake, alert, khmer speaking, pleasant. Denies pain. Not in distress
[2017-04-20] MEDS ORDERED: FUROSEMIDE 40 MG/4 ML VIAL IV SCH (09:00)
[2017-04-20] MEDS: FLUTICASONE/VILANTEROL 1 EACH BLST.W.DEV INH SCH (09:03)
[2017-04-20] MEDS: SPIRONOLACTONE 50 MG TABLET PO SCH (09:05)
[2017-04-20] MEDS: LACTOBACILLUS RHAMNOSUS GG 1 EACH CAPSULE PO SCH ×2 (09:06→20:55)
[2017-04-20] MEDS: VALSARTAN 160 MG TABLET PO SCH (09:06)
[2017-04-20] MEDS: QUETIAPINE FUMARATE 25 MG TABLET PO SCH (09:07)
[2017-04-20] MEDS: CLOPIDOGREL 75 MG TABLET PO SCH (09:07)
[2017-04-20] MEDS: CALCIUM CARB/VITAMIN D 500MG-200UNITS TABLET PO SCH ×2 (09:07→17:28)
[2017-04-20] MEDS: METOPROLOL SUCCINATE XL 25 MG TAB.SR.24H PO SCH (09:08)
[2017-04-20] MEDS: Z GUARD REMEDY PASTE 57 GM TUBE TOP SCH ×2 (09:29→20:59)
[2017-04-20] MEDS: ERYTHROMYCIN ETHYLSUCC 200 MG/5 ML SUSPENSION 100ML PO SCH ×2 (09:29→20:57)
--- NOTE | 2017-04-20 11:00 | NUR ---
Called Dr. Camargo regarding advance diet, waiting for call back
[2017-04-20] MEDS: LEVOFLOXACIN/D5W 250 MG in PREMIX 1 EA IV SCH (11:07)
[2017-04-20 11:32] VITALS: BP 139/82
[2017-04-20 15:27] VITALS: BP 129/64
--- NOTE | 2017-04-20 17:25 | NUR ---
Patient woke up, feeling anxious with dry stuffy nose and head. O2 removed. RA P2 sat 95%. BP 121/64, HR 120. Tylenol po given. Reassured and redirected. Repositioned comfortably
[2017-04-20] MEDS: ACETAMINOPHEN 650 MG/20.3 ML LIQUID UDC PO PRN (17:28)
[2017-04-20] MEDS: MONTELUKAST SODIUM 10 MG TABLET PO SCH (17:28)
--- NOTE | 2017-04-20 19:40 | NUR ---
Received patient laying in bed, asleep but arouses when called by name. Patient is A/O x2 and verbally responsive. Denies of any pain. Vital signs taken and recorded. No signs of any acute respi. distress. Persistent assessment done. Call light within reach. Will monitor the patient.
[2017-04-20 20:41] VITALS: BP 106/58
[2017-04-20] MEDS: TRAZODONE 50 MG TABLET PO SCH (20:55)
[2017-04-20] MEDS: SIMVASTATIN 10 MG TABLET PO SCH (20:55)
[2017-04-21] MEDS: METRONIDAZOLE 500 MG/NS 100ML 500 MG in PREMIXED 1 EACH IV SCH ×3 (05:29→23:01)
[2017-04-21 05:33] VITALS: BP 110/58
--- NOTE | 2017-04-21 06:43 | NUR ---
Patient slept well throughout the shift. Vital signs taken and recorded, WNL. No signs of any acute respi. distress. Denies of any pain. All needs attended to. Kept clean, dry and comfortable. Will endorse to AM shift nurse.
--- NOTE | 2017-04-21 07:00 | NUR ---
RECEIVED PATIENT ON BED, AWAKE, A AND O X 3, NO ACUTE DISTRESS NOTED. WITH IV ACCESS ON THE LEFT AC #20 INTACT AND PATENT. HYDE CATHETER IN PLACE AND DRAINING CLEAR YELLOW URINE. NO COMPLAINTS OF PAIN AND DISCOMFORT AT THIS TIME. NO EPISODES OF NAUSEA OR VOMITING. COMFORT MEASURES PROVIDED. CALL LIGHT WITHIN REACH. WILL CONTINUE TO MONITOR CLOSELY.
[2017-04-21] MEDS: SUCRALFATE 1 G/10 ML LIQUID UDC PO SCH ×3 (07:08→17:16)
[2017-04-21] MEDS: PANTOPRAZOLE SODIUM 40 MG TABLET.DR PO SCH (07:08)
[2017-04-21] MEDS: CLOPIDOGREL 75 MG TABLET PO SCH (08:55)
[2017-04-21] MEDS: VALSARTAN 160 MG TABLET PO SCH (08:55)
[2017-04-21] MEDS: ERYTHROMYCIN ETHYLSUCC 200 MG/5 ML SUSPENSION 100ML PO SCH ×3 (08:55→22:47)
[2017-04-21] MEDS: SPIRONOLACTONE 50 MG TABLET PO SCH (08:55)
[2017-04-21] MEDS: LACTOBACILLUS RHAMNOSUS GG 1 EACH CAPSULE PO SCH ×2 (08:56→21:46)
[2017-04-21] MEDS: CALCIUM CARB/VITAMIN D 500MG-200UNITS TABLET PO SCH ×2 (08:56→17:16)
[2017-04-21] MEDS: Z GUARD REMEDY PASTE 57 GM TUBE TOP SCH ×2 (09:03→21:47)
[2017-04-21] MEDS: QUETIAPINE FUMARATE 25 MG TABLET PO SCH (09:03)
[2017-04-21] MEDS: METOPROLOL SUCCINATE XL 25 MG TAB.SR.24H PO SCH (09:03)
[2017-04-21] MEDS: FLUTICASONE/VILANTEROL 1 EACH BLST.W.DEV INH SCH (09:06)
--- NOTE | 2017-04-21 09:26 | NUR ---
PATIENT NOTED WITH INCREASED HEAR RATE OF 125, NOTIFIED DR. LOBO AND ASSESSED PATIENT. ORDERED TO PUT ON MONITOR AND TRANSFER TO TELE.
[2017-04-21 10:18] LABS: BASOPHILS % (AUTO) 0.5 % (0.0-2.0); EOSINOPHILS # (AUTO) 0.1 K/uL (0.0-0.7); EOSINOPHILS % (AUTO) 1.1 % (0.0-7.0); HEMATOCRIT 43.4 % (31.2-41.9); HEMOGLOBIN 14.3 g/dL (10.9-14.3); LYMPHOCYTES # (AUTO) 2.4 K/uL (20.0-40.0); LYMPHOCYTES % (AUTO) 25.8 % (20.5-51.5); MEAN CORPUSCULAR HEMOGLOBIN 28.9 uug (24.7-32.8); MEAN CORPUSCULAR HGB CONC 33 g/dL (32.3-35.6); MEAN CORPUSCULAR VOLUME 87.6 fL (75.5-95.3); MONOCYTES # (AUTO) 0.8 K/uL (2.0-10.0); MONOCYTES % (AUTO) 8.3 % (0.0-11.0); NEUTROPHILS # (AUTO) 6.1 K/uL (1.8-8.9); NEUTROPHILS % (AUTO) 64.3 % (38.5-71.5); PLATELET COUNT (AUTO) 375 K/uL (179-408); RED BLOOD CELL COUNT(AUTO) 4.95 MIL/uL (3.63-4.92); WHITE BLOOD COUNT (AUTO) 9.4 K/uL (3.8-11.8)
[2017-04-21 10:19] LABS: ALANINE AMINOTRANSFERASE 20 U/L (14-59); ALKALINE PHOSPHATASE 90 U/L (50-136); ASPARTATE AMINOTRANSFERASE 14 U/L (15-37); BILIRUBIN,TOTAL 0.5 mg/dL (0.2-1.0); CARBON DIOXIDE 30 mmol/L (21-32); CHLORIDE 92 mmol/L (98-107); CREATININE 1.5 mg/dL (0.6-1.3); GLUCOSE 236 mg/dL (74-106); MAGNESIUM 1.7 mg/dL (1.8-2.4); PHOSPHOROUS 3.8 mg/dL (2.5-4.9); POTASSIUM 3.3 mmol/L (3.5-5.1); TOTAL PROTEIN, SERUM 6.6 g/dL (6.4-8.2); UREA NITROGEN, BLOOD 18 mg/dL (7-18)
[2017-04-21 11:19] VITALS: BP 111/54
[2017-04-21] MEDS: LEVOFLOXACIN/D5W 250 MG in PREMIX 1 EA IV SCH (11:23)
[2017-04-21 15:14] VITALS: BP 99/48
[2017-04-21] MEDS: MONTELUKAST SODIUM 10 MG TABLET PO SCH (17:16)
--- NOTE | 2017-04-21 19:35 | NUR ---
PT RECEIVED IN BED, AWAKE. A/OX3. GIBRALTARIAN SPEAKING BUT ABLE TO MAKE NEEDS KNOWN. V/S STABLE. IN NO ACUTE DISTRESS. 100 SINUS TACHY ON THE TELE MONITOR. ON RA, TOLERATING WELL. IV FOUND LEAKING, REMOVED. PENDING REPLACEMENT. PT SEEN WITH LOW GRADE FEVER OF 99.4F, COOLING MEASURES INITIATED. ROOM TEMP LOWERED, THIN BLANKET PROVIDED. HOB ELEVATED. SAFETY MEASURES IMPLEMENTED. BED ALARM SET. CALL LIGHT WITHIN REACH.
[2017-04-21 20:32] VITALS: BP 112/50
[2017-04-21] MEDS ORDERED: CEFEPIME HCL 1 G in IV DEXTROSE 5% 50 ML IV SCH ×4 (21:00)
[2017-04-21] MEDS: TRAZODONE 50 MG TABLET PO SCH (21:46)
[2017-04-21] MEDS: SIMVASTATIN 10 MG TABLET PO SCH (21:46)
[2017-04-21] MEDS ORDERED: ERYTHROMYCIN ETHYLSUCC 200 MG/5 ML SUSPENSION 100ML ONE (22:25)
[2017-04-21] MEDS: ACETAMINOPHEN 650 MG/20.3 ML LIQUID UDC PO PRN (22:29)
--- NOTE | 2017-04-22 06:00 | NUR ---
END OF SHIFT NOTES. PT SLEPT WELL THROUGHOUT SHIFT. IN STABLE CONDITION.IV ABX INFUSED. HYDE INTACT AND PATENT. TOLERATED RA WELL. AFEBRILE. ALL NEEDS ATTENDED. SAFETY MAINTAINED. CALL LIGHT WITHIN REACH.
[2017-04-22] MEDS: METRONIDAZOLE 500 MG/NS 100ML 500 MG in PREMIXED 1 EACH IV SCH ×2 (06:02→13:27)
[2017-04-22] MEDS: PANTOPRAZOLE SODIUM 40 MG TABLET.DR PO SCH (06:02)
[2017-04-22 06:23] VITALS: BP 138/62
[2017-04-22 06:34] LABS: BASOPHILS % (AUTO) 0.4 % (0.0-2.0); EOSINOPHILS # (AUTO) 0.3 K/uL (0.0-0.7); EOSINOPHILS % (AUTO) 3.3 % (0.0-7.0); LYMPHOCYTES # (AUTO) 1.6 K/uL (20.0-40.0); MEAN CORPUSCULAR HEMOGLOBIN 29.1 uug (24.7-32.8); MEAN CORPUSCULAR HGB CONC 34 g/dL (32.3-35.6); MEAN CORPUSCULAR VOLUME 86.2 fL (75.5-95.3); MONOCYTES % (AUTO) 11.5 % (0.0-11.0); NEUTROPHILS # (AUTO) 5.4 K/uL (1.8-8.9); NEUTROPHILS % (AUTO) 65.8 % (38.5-71.5); PLATELET COUNT (AUTO) 322 K/uL (179-408); RED BLOOD CELL COUNT(AUTO) 4.49 MIL/uL (3.63-4.92); WHITE BLOOD COUNT (AUTO) 8.2 K/uL (3.8-11.8)
[2017-04-22 06:41] LABS: ALANINE AMINOTRANSFERASE 15 U/L (14-59); ALKALINE PHOSPHATASE 79 U/L (50-136); ASPARTATE AMINOTRANSFERASE 22 U/L (15-37); BILIRUBIN,TOTAL 0.5 mg/dL (0.2-1.0); CARBON DIOXIDE 31 mmol/L (21-32); CHLORIDE 95 mmol/L (98-107); CREATININE 1.2 mg/dL (0.6-1.3); GLUCOSE 134 mg/dL (74-106); MAGNESIUM 1.8 mg/dL (1.8-2.4); PHOSPHOROUS 3.6 mg/dL (2.5-4.9); POTASSIUM 3.4 mmol/L (3.5-5.1); TOTAL PROTEIN, SERUM 5.9 g/dL (6.4-8.2); UREA NITROGEN, BLOOD 18 mg/dL (7-18)
[2017-04-22 06:45] LABS: HEMATOCRIT 38.7 % (31.2-41.9); HEMOGLOBIN 13.1 g/dL (10.9-14.3)
[2017-04-22] MEDS: CALCIUM CARB/VITAMIN D 500MG-200UNITS TABLET PO SCH (08:00)
[2017-04-22] MEDS: QUETIAPINE FUMARATE 25 MG TABLET PO SCH (08:00)
[2017-04-22] MEDS: METOPROLOL SUCCINATE XL 25 MG TAB.SR.24H PO SCH (08:01)
[2017-04-22] MEDS: LACTOBACILLUS RHAMNOSUS GG 1 EACH CAPSULE PO SCH (08:01)
[2017-04-22] MEDS: VALSARTAN 160 MG TABLET PO SCH (08:01)
[2017-04-22] MEDS: CLOPIDOGREL 75 MG TABLET PO SCH (08:01)
[2017-04-22] MEDS: SPIRONOLACTONE 50 MG TABLET PO SCH (08:01)
[2017-04-22] MEDS: ERYTHROMYCIN ETHYLSUCC 200 MG/5 ML SUSPENSION 100ML PO SCH (08:02)
[2017-04-22] MEDS: FLUTICASONE/VILANTEROL 1 EACH BLST.W.DEV INH SCH (08:03)
[2017-04-22] MEDS: SUCRALFATE 1 G/10 ML LIQUID UDC PO SCH ×2 (08:06→11:57)
[2017-04-22] MEDS: ACETAMINOPHEN 650 MG/20.3 ML LIQUID UDC PO PRN (08:06)
[2017-04-22] MEDS: Z GUARD REMEDY PASTE 57 GM TUBE TOP SCH (08:07)
[2017-04-22] MEDS ORDERED: CLOP75TA15 PO (08:27)
[2017-04-22] MEDS ORDERED: METO-356 PO (08:27)
[2017-04-22] MEDS ORDERED: SPIR50TA PO (08:27)
[2017-04-22 11:26] VITALS: BP 101/54
[2017-04-22] MEDS ORDERED: POTASSIUM CHLORIDE 20 MEQ POWDER PACKET PO ONE (13:00)
--- NOTE | 2017-04-22 14:30 | NUR ---
PT TO DISCHARGE TO ARU WITH EXIT CARE PACKET, ALL BELONGINGS, AND VALUABLES. PT STABLE TO D/C, ROOM AIR, SKIN INTACT, IV INTACT, HYDE STILL INSERTED. REPORT GIVEN TO ARU NURSE. TMS COMPLETED AND SENT DOWNSTAIRS. PT TRANSPORTED VIA WHEEL CHAIR.
[2017-04-22] MEDS ORDERED: ACET-2154 PO (15:46)
[2017-04-22] MEDS ORDERED: METR500P3 IV (15:46)
[2017-04-22] MEDS ORDERED: ONDA4AMP IJ (15:46)
[2017-04-22] MEDS ORDERED: VALS160T2 PO (15:46)
[2017-04-22] MEDS ORDERED: CEFE1VIA7 IV (16:27)
[2017-04-22] MEDS ORDERED: ERYT200S16 PO (17:08)
== END 2017-04-22 14:30 | DRG 280 ==
LOC: ER 22:36 → TELE 04-18 05:13 → MED 04-19 18:00 → TELE 04-21 09:19 → MED 04-21 21:20
PROVIDERS: ADMIT Internal Medicine Nephrology; ATTEND Internal Medicine
DX: I16.0 Hypertensive urgency (principal); I50.33 Acute on chronic diastolic (congestive) heart failure; I21.A1 Myocardial infarction type 2; E22.2 Syndrome of inappropriate secretion of antidiuretic hormone; K31.84 Gastroparesis; J44.9 Chronic obstructive pulmonary disease, unspecified; E11.43 Type 2 diabetes mellitus with diabetic autonomic (poly)neuropathy; M48.02 Spinal stenosis, cervical region; N39.0 Urinary tract infection, site not specified; I11.0 Hypertensive heart disease with heart failure; Z91.19 Patient's noncompliance with other medical treatment and regimen; K21.9 Gastro-esophageal reflux disease without esophagitis; E78.5 Hyperlipidemia, unspecified; Z88.0 Allergy status to penicillin; R42 Dizziness and giddiness; B96.20 Unspecified Escherichia coli [E. coli] as the cause of diseases classified elsewhere; T46.5X5A Adverse effect of other antihypertensive drugs, initial encounter; T50.0X5A Adverse effect of mineralocorticoids and their antagonists, initial encounter; Y92.009 Unspecified place in unspecified non-institutional (private) residence as the place of occurrence of the external cause; K57.30 Diverticulosis of large intestine without perforation or abscess without bleeding; M19.90 Unspecified osteoarthritis, unspecified site; Z79.82 Long term (current) use of aspirin; R51 Headache; M54.2 Cervicalgia; Z90.710 Acquired absence of both cervix and uterus; Z79.899 Other long term (current) drug therapy; M47.812 Spondylosis without myelopathy or radiculopathy, cervical region; F03.90 Unspecified dementia, unspecified severity, without behavioral disturbance, psychotic disturbance, mood disturbance, and anxiety; E87.6 Hypokalemia
CPT/HCPCS: 36415; 70030-TC; 70450; 70490; 71045; 83605; 83690; 83735; 84100; 85025; 85730; 87040; 87077; 87086; 93005; 93307; 97116; 97530; A4663; J0360; J0692; J1170; J1940; J1956; J2270; J2405; J3475; J3480; J3490; J7030; J7060

== ENCOUNTER 2017-04-22 15:13 | Inpatient (IN) | payer MEDICARE, MEDICAID ==
[~2017-04-22] VITALS: Ht 152.4 cm; Wt 62.6 kg
--- NOTE | 2017-04-22 15:00 | NUR ---
admitted an 81 year old female patient from medical surgical unit with diagnosis of CHF/ COPD. skin intact, no SOB or display of discomforts. IV site on right hand gauge 22 secured with tape and labeled. Med recon to be reviewed by Dr. Camargo. Dr. Tovar notified of the admission with orders, noted and carried out. All belongings were listed on the inventory list, signed by the patient, witnessed by the staff, filed in the chart. Skin noted intact, no wounds noted. Catapres patch noted on left upper arm dated on 04/18/17,called pharmacy and notified. also patient has a [place] catheter with yellowish colored urine draining well in the urine bag. urine bag hang noted patent with no kinks, no sediments and hang in the bed rail. patient was oriented to the unit and encouraged to use call light whenever assistance is needed. bed brakes and alarm on for safety. Will continue to monitor
[~2017-04-22 15:13] MED LIST changes: +CLOP75TA15 PO; -LEVO250T2 PO; +METO-356 PO; +SPIR50TA PO
[2017-04-22] MEDS ORDERED: VALS160T2 PO (15:46)
[2017-04-22] MEDS ORDERED: METR500P3 IV (15:46)
[2017-04-22] MEDS ORDERED: ACET-2154 PO (15:46)
[2017-04-22] MEDS ORDERED: ONDA4AMP IJ (15:46)
[2017-04-22] MEDS ORDERED: CEFE1VIA7 IV (16:27)
[2017-04-22] MEDS ORDERED: ONDANSETRON 4 MG/2 ML VIAL IV PRN (16:45)
[2017-04-22] MEDS ORDERED: ACETAMINOPHEN 325 MG TABLET PO PRN (16:45)
[2017-04-22] MEDS ORDERED: Z GUARD REMEDY PASTE 57 GM TUBE TOP PRN (16:45)
[2017-04-22] MEDS ORDERED: MECLIZINE HCL 25 MG TABLET PO PRN (16:45)
[2017-04-22] MEDS ORDERED: ACETAMINOPHEN/CODEINE 300-30 MG TABLET PO PRN (17:00)
[2017-04-22] MEDS ORDERED: ONDANSETRON HCL 4 MG TABLET PO PRN (17:00)
[2017-04-22] MEDS ORDERED: ERYT200S16 PO (17:08)
[2017-04-22 17:35] VITALS: BP 125/73
[2017-04-22] MEDS: CALCIUM CARB/VITAMIN D 500MG-200UNITS TABLET PO SCH (17:39)
[2017-04-22] MEDS: MONTELUKAST SODIUM 10 MG TABLET PO SCH (17:40)
--- NOTE | 2017-04-22 19:06 | NUR ---
patient remained stable throughout the shift with no SOB or display of any discomforts. All needs were attended and anticipated. Call light within reach. hourly rounding done. will endorse to incoming shift
--- NOTE | 2017-04-22 19:30 | NUR ---
PT IN ROOM ALERT AWAKE ORIENTED SPEAKING FRENCH IN NO ACUTE DISTRESS. ABLE TO FOLLOW SIMPLE COMMANDS AND IS COMPLIANT WITH PLAN OF CARE INCLUDING MEDICATION REGIMEN. REQUIRES MIN ASSISTANCE AND REMINDED TO USE CALL LIGHT FOR ASSISTANCE. F/C IN TACT WITH IV SITE PATENT TO RIGHT HAND. PT TO START ABX IV CEFEPIME THERAPY HS. DENIES ANY PAIN OR DISCOMFORT AT THIS TIME. HOB ELEVATED 30 DEGREES WITH 3 SIDE RAILS RAISED. CONTINUE TO MONITOR.
[2017-04-22 19:55] VITALS: BP 121/62
[2017-04-22] MEDS: TRAZODONE 50 MG TABLET PO SCH (20:13)
[2017-04-22] MEDS: CEFEPIME HCL 1 G in IV DEXTROSE 5% 50 ML IV SCH (20:13)
[2017-04-22] MEDS: LACTOBACILLUS RHAMNOSUS GG 1 EACH CAPSULE PO SCH (20:14)
[2017-04-22] MEDS: SIMVASTATIN 10 MG TABLET PO SCH (20:14)
[2017-04-22] MEDS: Z GUARD REMEDY PASTE 57 GM TUBE TOP SCH (20:32)
[2017-04-22] MEDS ORDERED: CEFEPIME HCL 1 G in IV DEXTROSE 5% 50 ML IV SCH (21:00)
[2017-04-22] MEDS ORDERED: METRONIDAZOLE 500 MG/NS 100 ML PIGGYBACK IV SCH (22:00)
[2017-04-22] MEDS ORDERED: METRONIDAZOLE 500 MG/NS 100ML 100 ML IV SCH (22:00)
--- NOTE | 2017-04-23 06:00 | NUR ---
Pt in room alert awake with no adverse affect r/t recent atb iv therapy. Denies any pain or discomfort. Needs assistance with ADLS. Call light placed within reach. Continue to monitor. F/c intact.
[2017-04-23] MEDS: PANTOPRAZOLE SODIUM 40 MG TABLET.DR PO SCH (06:04)
[2017-04-23] MEDS: SUCRALFATE 1 G/10 ML LIQUID UDC PO SCH ×3 (07:30→16:25)
[2017-04-23 08:29] VITALS: BP 125/72
[2017-04-23] MEDS: QUETIAPINE FUMARATE 25 MG TABLET PO SCH (08:43)
[2017-04-23] MEDS: CALCIUM CARB/VITAMIN D 500MG-200UNITS TABLET PO SCH ×2 (08:43→16:26)
[2017-04-23] MEDS: LACTOBACILLUS RHAMNOSUS GG 1 EACH CAPSULE PO SCH ×2 (08:43→20:29)
[2017-04-23] MEDS: SPIRONOLACTONE 50 MG TABLET PO SCH (08:44)
[2017-04-23] MEDS: METOPROLOL SUCCINATE XL 25 MG TAB.SR.24H PO SCH (08:44)
[2017-04-23] MEDS: CLOPIDOGREL 75 MG TABLET PO SCH (08:44)
[2017-04-23] MEDS: VALSARTAN 160 MG TABLET PO SCH (08:44)
[2017-04-23] MEDS: FLUTICASONE/VILANTEROL 1 EACH BLST.W.DEV INH SCH (08:45)
[2017-04-23] MEDS ORDERED: CEFEPIME HCL 1 G VIAL IV SCH (09:00)
[2017-04-23] MEDS ORDERED: ASPIRIN 325 MG TABLET PO SCH (09:00)
[2017-04-23] MEDS: Z GUARD REMEDY PASTE 57 GM TUBE TOP SCH ×2 (09:37→20:30)
--- NOTE | 2017-04-23 09:45 | NUR ---
SBAR report received, board updated. Pt awake, alert, oriented. Pt assessed, denies c/o pain and no distress present. VS WNL. Pt compliant with routine morning medications. Pt assisted to bathroom, BMx1, and returned to bed. [place] care provided. Bed in locked and lowest position. Able to make needs known. Call light within reach. Will continue to monitor.
--- NOTE | 2017-04-23 13:35 | NUR ---
Pt. had sheridan upon assesment. urine yellow and clear. recieved order from md to discontinue sheridan. sheridan removed as ordered. 550 ml removed. recommend post void observation and monitor for signs of retention. Addendum: 04/23/17 at 1338 by JOE JORGE RN sheridan removed at 1338.
--- NOTE | 2017-04-23 15:06 | NUR ---
INTERDISCIPLINARY TEAM CONFERENCE
[2017-04-23] MEDS: MONTELUKAST SODIUM 10 MG TABLET PO SCH (18:29)
--- NOTE | 2017-04-23 18:56 | NUR ---
Pt resting comfortably sitting in semi fowlers. No significant changes throughout this shift. Pt remains free from c/o pain and SOB. Compliant with all medication administration. All comfort safety needs met. Call light within reach. Will continue to monitor and endorse to shift production supervisor.
[2017-04-23 19:30] VITALS: BP 143/71
--- NOTE | 2017-04-23 19:30 | NUR ---
PT IN ROOM ALERT AWAKE IN NO ACUTE DISTRESS SPEAKING IN PARAGUAYAN. DENIES ANY PAIN, DISCOMFORT, OR SOB. COMPLIANT WITH PLAN OF CARE INCLUDING HS MEDICATIONS. REMINDED PT TO CALL FOR ASSISTANCE WHEN NEEDED. ABLE TO VOID WITHOUT DIFFICULTY. V/S ARE WNL. PT TO CONTINUE WITH IV ABX MAXEPIME TONIGHT. IV HEP LOCK TO RIGHT HANT INTACT AND PATENT WITH NO INFILTRATION. HOB ELEVATED 30 DEGREES WITH BED ALARM ON. CONTINUE TO MONITOR.
[2017-04-23] MEDS: CEFEPIME HCL 1 G in IV DEXTROSE 5% 50 ML IV SCH (20:29)
[2017-04-23] MEDS: TRAZODONE 50 MG TABLET PO SCH (20:29)
[2017-04-23] MEDS: SIMVASTATIN 10 MG TABLET PO SCH (20:29)
[2017-04-23] MEDS: ERYTHROMYCIN ETHYLSUCC 200 MG/5 ML SUSPENSION 100ML PO SCH (20:40)
--- NOTE | 2017-04-24 05:30 | NUR ---
PT IN ROOM ASLEEP IN NO ACUTE DISTRESS OVERNIGHT. ABLE TO SLEEP WITHOUT C/O PAIN OR DISCOMFORT. NO ADVERSE EFFECT TO LAST NIGHT'S MAXEPIME IV ABX THERAPY. PT REMINDED TO USE CALL LIGHT FOR ASSISTANCE. ABLE TO GET UP OUT OF BED WITH STANDBY ASSISTANCE VIA WALKER. NO RESP DISTRESS. CONTINUE TO MONITOR.
[2017-04-24] MEDS: PANTOPRAZOLE SODIUM 40 MG TABLET.DR PO SCH (06:18)
--- NOTE | 2017-04-24 07:50 | NUR ---
Received patient awake, alert x4. Denies any pain. On room air. No tin any form of distress. NO SOB or chest pain noted. Intact G22 saline lock over right hand.
[2017-04-24 08:00] VITALS: BP 160/61
[2017-04-24] MEDS: Z GUARD REMEDY PASTE 57 GM TUBE TOP SCH ×2 (09:00→21:27)
[2017-04-24] MEDS: SUCRALFATE 1 G/10 ML LIQUID UDC PO SCH ×3 (09:21→17:36)
--- NOTE | 2017-04-24 09:30 | NUR ---
Up with physical therapy, tolerating therapy well.
[2017-04-24] MEDS: QUETIAPINE FUMARATE 25 MG TABLET PO SCH (09:59)
[2017-04-24] MEDS: VALSARTAN 160 MG TABLET PO SCH (09:59)
[2017-04-24] MEDS: ERYTHROMYCIN ETHYLSUCC 200 MG/5 ML SUSPENSION 100ML PO SCH ×2 (09:59→21:24)
[2017-04-24] MEDS: CALCIUM CARB/VITAMIN D 500MG-200UNITS TABLET PO SCH ×2 (09:59→17:36)
[2017-04-24] MEDS: SPIRONOLACTONE 50 MG TABLET PO SCH (09:59)
[2017-04-24] MEDS: LACTOBACILLUS RHAMNOSUS GG 1 EACH CAPSULE PO SCH ×2 (09:59→21:24)
[2017-04-24] MEDS: METOPROLOL SUCCINATE XL 25 MG TAB.SR.24H PO SCH (10:01)
[2017-04-24] MEDS: CLOPIDOGREL 75 MG TABLET PO SCH (10:01)
[2017-04-24] MEDS: FLUTICASONE/VILANTEROL 1 EACH BLST.W.DEV INH SCH (10:02)
[2017-04-24] MEDS: MONTELUKAST SODIUM 10 MG TABLET PO SCH (17:36)
--- NOTE | 2017-04-24 19:40 | NUR ---
Received pt in bed, AAO x 3 watching television. Great-grand daughter at bedside. No acute distress noted. Verbally responsive and able to make needs known. Denies pain or discomfort at this time. All safety measures and fall precautions maintained. Call light and all personal belongings within reach. Will continue to monitor.
[2017-04-24 20:57] VITALS: BP 158/79
[2017-04-24] MEDS: TRAZODONE 50 MG TABLET PO SCH (21:24)
[2017-04-24] MEDS: SIMVASTATIN 10 MG TABLET PO SCH (21:24)
[2017-04-24] MEDS: SULFAMETH/TRIMETH 800/160 MG TABLET PO SCH (21:24)
[2017-04-24 22:08] VITALS: BP 128/62
[2017-04-25] MEDS: PANTOPRAZOLE SODIUM 40 MG TABLET.DR PO SCH (06:38)
[2017-04-25] MEDS: SUCRALFATE 1 G/10 ML LIQUID UDC PO SCH ×3 (06:38→16:12)
[2017-04-25 07:04] LABS: BASOPHILS # (AUTO) 0.1 K/uL (0.0-8.0); EOSINOPHILS # (AUTO) 0.3 K/uL (0.0-0.7); EOSINOPHILS % (AUTO) 3.8 % (0.0-7.0); HEMATOCRIT 38.7 % (31.2-41.9); HEMOGLOBIN 13.1 g/dL (10.9-14.3); LYMPHOCYTES # (AUTO) 1.9 K/uL (20.0-40.0); LYMPHOCYTES % (AUTO) 28.2 % (20.5-51.5); MEAN CORPUSCULAR HEMOGLOBIN 29.1 uug (24.7-32.8); MEAN CORPUSCULAR HGB CONC 34 g/dL (32.3-35.6); MONOCYTES # (AUTO) 0.7 K/uL (2.0-10.0); MONOCYTES % (AUTO) 10.7 % (0.0-11.0); NEUTROPHILS # (AUTO) 3.7 K/uL (1.8-8.9); NEUTROPHILS % (AUTO) 56.3 % (38.5-71.5); PLATELET COUNT (AUTO) 379 K/uL (179-408); WHITE BLOOD COUNT (AUTO) 6.6 K/uL (3.8-11.8)
[2017-04-25 07:14] LABS: ALANINE AMINOTRANSFERASE 52 U/L (14-59); ALKALINE PHOSPHATASE 77 U/L (50-136); ASPARTATE AMINOTRANSFERASE 56 U/L (15-37); BILIRUBIN,TOTAL 0.3 mg/dL (0.2-1.0); CARBON DIOXIDE 26 mmol/L (21-32); CHLORIDE 99 mmol/L (98-107); GLUCOSE 115 mg/dL (74-106); MAGNESIUM 1.7 mg/dL (1.8-2.4); PHOSPHOROUS 3.8 mg/dL (2.5-4.9); POTASSIUM 4.4 mmol/L (3.5-5.1); TOTAL PROTEIN, SERUM 6.2 g/dL (6.4-8.2); UREA NITROGEN, BLOOD 18 mg/dL (7-18)
[2017-04-25 07:30] VITALS: BP 147/71
--- NOTE | 2017-04-25 07:40 | NUR ---
received report from night nurse. patient stable, asleep upon initial assessment. no s/s acute distress. call light noted to be within reach. will monitor.
[2017-04-25] MEDS: FLUTICASONE/VILANTEROL 1 EACH BLST.W.DEV INH SCH (09:01)
[2017-04-25] MEDS: CLOPIDOGREL 75 MG TABLET PO SCH (09:02)
[2017-04-25] MEDS: LACTOBACILLUS RHAMNOSUS GG 1 EACH CAPSULE PO SCH ×2 (09:02→20:41)
[2017-04-25] MEDS: SULFAMETH/TRIMETH 800/160 MG TABLET PO SCH ×2 (09:02→20:41)
[2017-04-25] MEDS: METOPROLOL SUCCINATE XL 25 MG TAB.SR.24H PO SCH (09:04)
[2017-04-25] MEDS: CALCIUM CARB/VITAMIN D 500MG-200UNITS TABLET PO SCH ×2 (09:05→16:12)
[2017-04-25] MEDS: SPIRONOLACTONE 50 MG TABLET PO SCH (09:05)
[2017-04-25] MEDS: VALSARTAN 160 MG TABLET PO SCH (09:05)
[2017-04-25] MEDS: Z GUARD REMEDY PASTE 57 GM TUBE TOP SCH ×2 (09:06→20:41)
[2017-04-25] MEDS: QUETIAPINE FUMARATE 25 MG TABLET PO SCH (09:20)
[2017-04-25] MEDS: ERYTHROMYCIN ETHYLSUCC 200 MG/5 ML SUSPENSION 100ML PO SCH ×2 (09:20→20:41)
[2017-04-25] MEDS: CLONIDINE-TTS 3 PATCH TD SCH (10:57)
[2017-04-25] MEDS ORDERED: MAGNESIUM OXIDE 400 MG TABLET PO ONE (15:45)
[2017-04-25] MEDS: MONTELUKAST SODIUM 10 MG TABLET PO SCH (17:46)
--- NOTE | 2017-04-25 18:39 | NUR ---
patient stable this shift. no s/s distress, no PRN medications required. patient tolerated getting up for bathroom privileges. will endorse to independent producer.
--- NOTE | 2017-04-25 19:52 | NUR ---
Received pt in bed, AAO x 3 with family member at bedside. Verbally responsive and able to make needs known. No acute distress noted. Denies pain or discomfort at this time. All safety measures and fall precautions maintained. Call light and all personal belongings within reach. Will continue to monitor.
[2017-04-25 20:00] VITALS: BP 117/62
[2017-04-25] MEDS: TRAZODONE 50 MG TABLET PO SCH (20:41)
[2017-04-25] MEDS: SIMVASTATIN 10 MG TABLET PO SCH (20:41)
[2017-04-26] MEDS: SUCRALFATE 1 G/10 ML LIQUID UDC PO SCH ×3 (06:33→17:50)
[2017-04-26] MEDS: PANTOPRAZOLE SODIUM 40 MG TABLET.DR PO SCH (06:33)
[2017-04-26 07:49] LABS: ALANINE AMINOTRANSFERASE 49 U/L (14-59); ALKALINE PHOSPHATASE 79 U/L (50-136); ASPARTATE AMINOTRANSFERASE 38 U/L (15-37); BILIRUBIN,TOTAL 0.3 mg/dL (0.2-1.0); CARBON DIOXIDE 25 mmol/L (21-32); CHLORIDE 99 mmol/L (98-107); CREATININE 1.2 mg/dL (0.6-1.3); GLUCOSE 120 mg/dL (74-106); MAGNESIUM 1.8 mg/dL (1.8-2.4); PHOSPHOROUS 3.5 mg/dL (2.5-4.9); POTASSIUM 4.6 mmol/L (3.5-5.1); TOTAL PROTEIN, SERUM 6.3 g/dL (6.4-8.2); UREA NITROGEN, BLOOD 19 mg/dL (7-18)
[2017-04-26 07:55] VITALS: BP 136/71
[2017-04-26 08:19] LABS: BASOPHILS % (AUTO) 0.6 % (0.0-2.0); EOSINOPHILS # (AUTO) 0.2 K/uL (0.0-0.7); EOSINOPHILS % (AUTO) 3.9 % (0.0-7.0); HEMATOCRIT 39.6 % (31.2-41.9); HEMOGLOBIN 13.1 g/dL (10.9-14.3); LYMPHOCYTES % (AUTO) 33.1 % (20.5-51.5); MEAN CORPUSCULAR HEMOGLOBIN 28.9 uug (24.7-32.8); MEAN CORPUSCULAR HGB CONC 33 g/dL (32.3-35.6); MEAN CORPUSCULAR VOLUME 87.2 fL (75.5-95.3); MONOCYTES # (AUTO) 0.6 K/uL (2.0-10.0); MONOCYTES % (AUTO) 10.2 % (0.0-11.0); NEUTROPHILS # (AUTO) 3.2 K/uL (1.8-8.9); NEUTROPHILS % (AUTO) 52.2 % (38.5-71.5); PLATELET COUNT (AUTO) 392 K/uL (179-408); RED BLOOD CELL COUNT(AUTO) 4.53 MIL/uL (3.63-4.92); WHITE BLOOD COUNT (AUTO) 6.1 K/uL (3.8-11.8)
[2017-04-26] MEDS: CALCIUM CARB/VITAMIN D 500MG-200UNITS TABLET PO SCH ×2 (09:31→17:50)
[2017-04-26] MEDS: LACTOBACILLUS RHAMNOSUS GG 1 EACH CAPSULE PO SCH ×2 (09:31→20:54)
[2017-04-26] MEDS: FLUTICASONE/VILANTEROL 1 EACH BLST.W.DEV INH SCH (09:31)
[2017-04-26] MEDS: SPIRONOLACTONE 50 MG TABLET PO SCH (09:31)
[2017-04-26] MEDS: QUETIAPINE FUMARATE 25 MG TABLET PO SCH (09:32)
[2017-04-26] MEDS: SULFAMETH/TRIMETH 800/160 MG TABLET PO SCH (09:32)
[2017-04-26] MEDS: VALSARTAN 160 MG TABLET PO SCH (09:32)
[2017-04-26] MEDS: CLOPIDOGREL 75 MG TABLET PO SCH (09:32)
[2017-04-26] MEDS: METOPROLOL SUCCINATE XL 25 MG TAB.SR.24H PO SCH (09:33)
[2017-04-26] MEDS: Z GUARD REMEDY PASTE 57 GM TUBE TOP SCH ×2 (09:40→21:02)
[2017-04-26] MEDS: ERYTHROMYCIN ETHYLSUCC 200 MG/5 ML SUSPENSION 100ML PO SCH ×2 (10:20→21:02)
--- NOTE | 2017-04-26 11:28 | NUR ---
SBAR report received, board updated. Pt awake, alert, and oriented. Pt compliant with all routine medication administration. Able to make needs known. Pt assisted to bathroom and back to bed. Bed in locked and lowest position with side rails up x2. All safety needs attended to, call light within reach. Will continue to monitor.
--- NOTE | 2017-04-26 15:08 | NUR ---
WOUND CARE CONSULT: PT SEEN FOR RASH TO RT AXILLA. PT ALSO NOTED TO BE SCRATCHING HER BACK. DEFER TO MD FOR SCRATCHING. RECOMMENDATIONS MADE FOR RT AXILLA RASH AND DISCUSSED WITH NURSING STAFF. CURRENT RHONDA SCORE IS 18. WILL SEE PRN. GOOD IN AGREEMENT WITH PLAN OF CARE. Addendum: 04/26/17 at 1509 by SAI MEZA RN Amended: Links added.
--- NOTE | 2017-04-26 15:09 | NUR ---
Following shower, excessive redness to the right axillary armpit area and scratches to the back identified. Pt reports itchiness. MD notified and wound consult ordered. Gladis CONNER consulted for skin integrity impairment. Pictures taken and placed in chart. Will continue to follow up as recommended.
[2017-04-26] MEDS: CLOTRIMAZOLE 1% CREAM 30 GM TUBE TOP SCH (17:51)
--- NOTE | 2017-04-26 18:34 | NUR ---
Pt resting comfortably in bed. Compliant with medication administration and plan of care. All comfort and safety needs attended to, call light within reach. Will continue to monitor and endorse to oncoming night clerk.
[2017-04-26] MEDS: MONTELUKAST SODIUM 10 MG TABLET PO SCH (18:46)
[2017-04-26 19:30] VITALS: BP 131/59
--- NOTE | 2017-04-26 19:30 | NUR ---
PT RECEIVED IN BED, AWAKE. A/OX4. TELUGU SPEAKING, BUT ABLE TO MAKE NEEDS KNOWN. V/S STABLE. IN NO ACUTE DISTRESS. NO C/O PAIN AT THIS TIME. ON RA, TOLERATING WELL. AFEBRILE. PT C/O CONSTIPATION, PRUNE JUICE PROVIDED. MADE AWARE, ORDERS PENDING. PT ON ASPIRATION PRECAUTIONS. HOB ELEVATED. SAFETY MEASURES IMPLEMENTED. BED ALARM SET. CALL LIGHT WITHIN REACH.
[2017-04-26] MEDS ORDERED: BISACODYL 5 MG TABLET.DR PO PRN (20:15)
[2017-04-26] MEDS: SIMVASTATIN 10 MG TABLET PO SCH (20:54)
[2017-04-26] MEDS: TRAZODONE 50 MG TABLET PO SCH (20:54)
[2017-04-26] MEDS: SENNOSIDES/DOCUSATE SODIUM TABLET PO SCH (20:54)
--- NOTE | 2017-04-27 06:00 | NUR ---
END OF SHIFT NOTES. PT SLEPT WELL THROUGHOUT SHIFT. IN STABLE CONDITION. ADMINISTERED SENNA AND DULCOLAX ORDERED. PT CONT TO C/O OF CONSTIPATION. PRUNE JUICE PROVIDED. HOB REMAINS ELEVATED. ALL NEEDS ATTENDED. SAFETY MAINTAINED. CALL LIGHT WITHIN REACH.
[2017-04-27] MEDS: PANTOPRAZOLE SODIUM 40 MG TABLET.DR PO SCH (06:29)
[2017-04-27] MEDS: SUCRALFATE 1 G/10 ML LIQUID UDC PO SCH ×3 (06:30→16:13)
[2017-04-27 07:20] VITALS: BP 118/50
[2017-04-27] MEDS: FLUTICASONE/VILANTEROL 1 EACH BLST.W.DEV INH SCH (08:51)
[2017-04-27] MEDS: SULFAMETH/TRIMETH 800/160 MG TABLET PO SCH (08:52)
[2017-04-27] MEDS: LACTOBACILLUS RHAMNOSUS GG 1 EACH CAPSULE PO SCH ×2 (08:53→20:44)
[2017-04-27] MEDS: QUETIAPINE FUMARATE 25 MG TABLET PO SCH (08:55)
[2017-04-27] MEDS: CALCIUM CARB/VITAMIN D 500MG-200UNITS TABLET PO SCH ×2 (08:56→17:11)
[2017-04-27] MEDS: CLOPIDOGREL 75 MG TABLET PO SCH (08:56)
[2017-04-27] MEDS: SENNOSIDES/DOCUSATE SODIUM TABLET PO SCH (09:00)
[2017-04-27] MEDS: SPIRONOLACTONE 50 MG TABLET PO SCH (09:14)
[2017-04-27] MEDS: VALSARTAN 160 MG TABLET PO SCH (09:15)
[2017-04-27] MEDS: METOPROLOL SUCCINATE XL 25 MG TAB.SR.24H PO SCH (09:15)
[2017-04-27] MEDS: ERYTHROMYCIN ETHYLSUCC 200 MG/5 ML SUSPENSION 100ML PO SCH ×2 (09:16→20:47)
[2017-04-27] MEDS: CLOTRIMAZOLE 1% CREAM 30 GM TUBE TOP SCH ×2 (09:20→16:14)
[2017-04-27] MEDS: Z GUARD REMEDY PASTE 57 GM TUBE TOP SCH ×2 (09:23→20:44)
--- NOTE | 2017-04-27 11:38 | NUR ---
Pt seen by ST, upon further evaluation, Video Swallow study recommended. MD made aware and new orders received. Radiology confirmed, and appointment set for 1500hr today. Pt prepared by discussion of plan of care. All questions addressed. Will have Pt transferred to radiology by 1450 and follow up as needed.
[2017-04-27 13:20] VITALS: BP 123/72
--- NOTE | 2017-04-27 13:30 | NUR ---
Pt reports c/o dizziness while laying in bed. VS taken to be 123/72, 86, 18, 95% RA, and 98.2 temp - WNL. No acute distress noted. Antivert administered per PRN orders. Will continue to monitor for improvements.
--- NOTE | 2017-04-27 15:35 | NUR ---
Pt returned safely to bed from radiology for video swallow study. No distress of change of status. Plan of care discussed with [facility] message for neonatal doctor VIP MD regarding plans to follow up recommendations. Will continue to monitor and follow up regarding plan of care.
[2017-04-27] MEDS: MONTELUKAST SODIUM 10 MG TABLET PO SCH (17:11)
--- NOTE | 2017-04-27 18:47 | NUR ---
Pt comfortably resting in bed, after being assisted to bathroom, voiding x1. Evening medications administered as ordered by crushing pills for ease of swallowing. Pt seen by MD. All safety and comfort needs attended to. Call light and personal items placed within reach. Will continue to monitor and endorse to oncoming manager night.
--- NOTE | 2017-04-27 19:45 | NUR ---
Received pt in bed, AAO x 3 watching television. No acute distress noted. Verbally responsive and able to make needs known. Denies pain or discomfort. All safety measures and fall precautions maintained. Call light and all personal belongings within reach. Will continue to monitor.
[2017-04-27 20:00] VITALS: BP 134/61
[2017-04-27] MEDS: SIMVASTATIN 10 MG TABLET PO SCH (20:44)
[2017-04-27] MEDS: TRAZODONE 50 MG TABLET PO SCH (20:44)
[2017-04-27] MEDS: NYSTATIN/TRIAMCINOLONE CREAM 15 GM TUBE TOP SCH (20:44)
[2017-04-28] MEDS: PANTOPRAZOLE SODIUM 40 MG TABLET.DR PO SCH (06:32)
[2017-04-28] MEDS: SUCRALFATE 1 G/10 ML LIQUID UDC PO SCH ×3 (06:32→17:38)
--- NOTE | 2017-04-28 08:00 | NUR ---
Received patient awake, verbally responsive, not in any form of acute distress. She denies any pain or discomfort at this time. Call light placed within reach. Assisted to her needs.
--- NOTE | 2017-04-28 08:20 | NUR ---
Dr. Camargo in the unit notified him regarding patient's complain of burning sensation on swallowing and ST's suggestion for GI consult. Per Dr. Camargo patient already had GI work up and that he will see what the patient have. No new order at this time.
[2017-04-28 08:46] VITALS: BP 120/77
[2017-04-28] MEDS: SULFAMETH/TRIMETH 800/160 MG TABLET PO SCH (08:58)
[2017-04-28] MEDS: FLUTICASONE/VILANTEROL 1 EACH BLST.W.DEV INH SCH (08:58)
[2017-04-28] MEDS: QUETIAPINE FUMARATE 25 MG TABLET PO SCH (08:59)
[2017-04-28] MEDS: CLOPIDOGREL 75 MG TABLET PO SCH (08:59)
[2017-04-28] MEDS: SENNOSIDES/DOCUSATE SODIUM TABLET PO SCH (08:59)
[2017-04-28] MEDS: SPIRONOLACTONE 50 MG TABLET PO SCH (08:59)
[2017-04-28] MEDS: CALCIUM CARB/VITAMIN D 500MG-200UNITS TABLET PO SCH ×2 (08:59→17:38)
[2017-04-28] MEDS: LACTOBACILLUS RHAMNOSUS GG 1 EACH CAPSULE PO SCH ×2 (08:59→20:28)
[2017-04-28] MEDS: NYSTATIN/TRIAMCINOLONE CREAM 15 GM TUBE TOP SCH ×2 (09:00→20:30)
[2017-04-28] MEDS: METOPROLOL SUCCINATE XL 25 MG TAB.SR.24H PO SCH (09:00)
[2017-04-28] MEDS: VALSARTAN 160 MG TABLET PO SCH (09:00)
[2017-04-28] MEDS: Z GUARD REMEDY PASTE 57 GM TUBE TOP SCH ×2 (09:02→20:30)
[2017-04-28] MEDS: ERYTHROMYCIN ETHYLSUCC 200 MG/5 ML SUSPENSION 100ML PO SCH ×2 (09:06→20:28)
[2017-04-28] MEDS: MONTELUKAST SODIUM 10 MG TABLET PO SCH (17:38)
--- NOTE | 2017-04-28 18:45 | NUR ---
Dr. Tovar saw patient with order for Reglan 10mg PO Q8hrs.
[2017-04-28 19:56] VITALS: BP 148/68
[2017-04-28] MEDS: TRAZODONE 50 MG TABLET PO SCH (20:28)
[2017-04-28] MEDS: SIMVASTATIN 10 MG TABLET PO SCH (20:28)
--- NOTE | 2017-04-28 20:30 | NUR ---
NSG: RECEIVED PATIENT LAYING IN BED, PATIENT A/OX4. BENGALI SPEAKING ONLY,PATIENT ABLE TO MAKE NEEDS KNOWN. V/S STABLE. NO C/O PAIN OR DISCOMFORT @ THIS TIME. AFEBRILE. COMPLIANT WITH MEDICATION .ALL MEDS CRUSHED AND MIX IN APPLE SAUCE. PT ON ASPIRATION PRECAUTIONS. HOB ELEVATED. SAFETY MEASURES IMPLEMENTED. BED ALARM SET. CALL LIGHT WITHIN REACH.
[2017-04-28] MEDS ORDERED: METOCLOPRAMIDE HCL 10 MG TABLET PO SCH (22:00)
[2017-04-28] MEDS: METOCLOPRAMIDE HCL 5 MG TABLET PO SCH (23:24)
[2017-04-29] MEDS: METOCLOPRAMIDE HCL 5 MG TABLET PO SCH ×3 (06:06→18:44)
--- NOTE | 2017-04-29 06:25 | NUR ---
NSG: REMAIN CALM AND COOPERATIVE WITH CARE. SLEPT WELL. ASSISTED TO BATHROOM AND BACK TO BED. NO C/O PAIN OR DISCOMFORT AT THIS TIME. CALL LIGHT W/IN REACH.
[2017-04-29] MEDS: SUCRALFATE 1 G/10 ML LIQUID UDC PO SCH ×3 (06:31→16:39)
[2017-04-29] MEDS: PANTOPRAZOLE SODIUM 40 MG TABLET.DR PO SCH (06:31)
--- NOTE | 2017-04-29 07:30 | NUR ---
RECEIVED SHIFT REPORT FROM RUNWAY MODEL NURSE. PATIENT RESTING COMFORTABLY IN BED AT THIS TIME. STABLE CONDITION, NO S/S OF DISTRESS. REQUIRES ASSISTANCE TO RESTROOM, ASSISTANCE PROVIDED. ALSO USES WALKER FOR ASSISTANCE. HAVING PT/OT TODAY.
[2017-04-29 07:34] LABS: BASOPHILS % (AUTO) 0.5 % (0.0-2.0); EOSINOPHILS # (AUTO) 0.1 K/uL (0.0-0.7); EOSINOPHILS % (AUTO) 1.6 % (0.0-7.0); HEMOGLOBIN 13.8 g/dL (10.9-14.3); LYMPHOCYTES % (AUTO) 28.8 % (20.5-51.5); MEAN CORPUSCULAR HEMOGLOBIN 29.5 uug (24.7-32.8); MEAN CORPUSCULAR HGB CONC 34 g/dL (32.3-35.6); MEAN CORPUSCULAR VOLUME 85.7 fL (75.5-95.3); MONOCYTES # (AUTO) 0.6 K/uL (2.0-10.0); MONOCYTES % (AUTO) 8.8 % (0.0-11.0); NEUTROPHILS # (AUTO) 4.2 K/uL (1.8-8.9); NEUTROPHILS % (AUTO) 60.3 % (38.5-71.5); PLATELET COUNT (AUTO) 445 K/uL (179-408); RED BLOOD CELL COUNT(AUTO) 4.66 MIL/uL (3.63-4.92)
[2017-04-29 07:36] LABS: ALANINE AMINOTRANSFERASE 34 U/L (14-59); ALKALINE PHOSPHATASE 88 U/L (50-136); ASPARTATE AMINOTRANSFERASE 20 U/L (15-37); BILIRUBIN,TOTAL 0.5 mg/dL (0.2-1.0); CARBON DIOXIDE 24 mmol/L (21-32); CHLORIDE 87 mmol/L (98-107); CREATININE 1.2 mg/dL (0.6-1.3); GLUCOSE 109 mg/dL (74-106); MAGNESIUM 1.5 mg/dL (1.8-2.4); PHOSPHOROUS 3.8 mg/dL (2.5-4.9); POTASSIUM 4.9 mmol/L (3.5-5.1); TOTAL PROTEIN, SERUM 6.8 g/dL (6.4-8.2); UREA NITROGEN, BLOOD 15 mg/dL (7-18)
[2017-04-29 07:40] VITALS: BP 126/60
[2017-04-29] MEDS: Z GUARD REMEDY PASTE 57 GM TUBE TOP SCH ×2 (07:55→20:55)
[2017-04-29] MEDS: NYSTATIN/TRIAMCINOLONE CREAM 15 GM TUBE TOP SCH ×2 (07:56→20:50)
--- NOTE | 2017-04-29 08:30 | NUR ---
CRITICAL LAB RESULT REPORTED BY LAB: SODIUM 120 READ-BACK INITIATED. NOTIFIED MD OF CRITICAL LAB RESULT AND MD ORDERED TO HAVE URINE SODIUM, URINE OSMOLALITY, AND IMPLEMENT SODIUM RESTRICTION TO 1,000 ML/DAY.
[2017-04-29] MEDS: VALSARTAN 160 MG TABLET PO SCH (08:36)
[2017-04-29] MEDS: SENNOSIDES/DOCUSATE SODIUM TABLET PO SCH (08:36)
[2017-04-29] MEDS: QUETIAPINE FUMARATE 25 MG TABLET PO SCH (08:37)
[2017-04-29] MEDS: CALCIUM CARB/VITAMIN D 500MG-200UNITS TABLET PO SCH ×2 (08:37→17:56)
[2017-04-29] MEDS: SPIRONOLACTONE 50 MG TABLET PO SCH (08:37)
[2017-04-29] MEDS: SULFAMETH/TRIMETH 800/160 MG TABLET PO SCH (08:37)
[2017-04-29] MEDS: CLOPIDOGREL 75 MG TABLET PO SCH (08:37)
[2017-04-29] MEDS: METOPROLOL SUCCINATE XL 25 MG TAB.SR.24H PO SCH (08:38)
[2017-04-29] MEDS: LACTOBACILLUS RHAMNOSUS GG 1 EACH CAPSULE PO SCH ×2 (08:42→20:49)
[2017-04-29] MEDS: FLUTICASONE/VILANTEROL 1 EACH BLST.W.DEV INH SCH (08:42)
[2017-04-29] MEDS: ERYTHROMYCIN ETHYLSUCC 200 MG/5 ML SUSPENSION 100ML PO SCH ×2 (10:00→20:55)
[2017-04-29] MEDS ORDERED: MAGNESIUM OXIDE 400 MG TABLET PO ONE (14:45)
--- NOTE | 2017-04-29 18:33 | NUR ---
PATIENT RESTING COMFORTABLY IN BED AT THIS TIME, STABLE CONDITION, VITAL SIGNS STABLE. WAS NOT ABLE TO FULLY TOLERATE PHYSICAL THERAPY TODAY DUE TO PT COMPLAINT OF WEAKNESS AND DIZZINESS. PATIENT ABLE TO TOLERATE MEDICATIONS TODAY, NO SIGNS OF ASPIRATION THROUGHOUT SHIFT. A/OX4, COOPERATIVE. BED IN LOCKED/LOW POSITION, SIDE RAILS UP X2, BED ALARM ON, CALL LIGHT WITHIN REACH OF PT.
[2017-04-29] MEDS: MONTELUKAST SODIUM 10 MG TABLET PO SCH (18:44)
--- NOTE | 2017-04-29 20:00 | NUR ---
Received pt lying on bed alert, awake and oriented with no signs/symptoms of distress. No complaints of pain or discomfort. Breathing even and unlabored with normal respirations. All due meds given as ordered and well tolerated, no signs of aspiration was noted. safety and fall precautions observed and maintained. Call light within reach. All needs attended
[2017-04-29 20:24] VITALS: BP 125/70
[2017-04-29] MEDS: SIMVASTATIN 10 MG TABLET PO SCH (20:49)
[2017-04-29] MEDS: TRAZODONE 50 MG TABLET PO SCH (20:49)
--- NOTE | 2017-04-30 06:05 | NUR ---
Patient slept comfortably throughout the shift with no acute distress noted. No complaints of pain or discomfort. Assisted to the bathroom as needed. Safety and fall precautions observed and maintained. Call light within reach. All needs attended.
[2017-04-30] MEDS: PANTOPRAZOLE SODIUM 40 MG TABLET.DR PO SCH (06:23)
[2017-04-30] MEDS: SUCRALFATE 1 G/10 ML LIQUID UDC PO SCH ×3 (06:33→17:13)
[2017-04-30 07:00] VITALS: BP 125/65
[2017-04-30] MEDS: SENNOSIDES/DOCUSATE SODIUM TABLET PO SCH (09:02)
[2017-04-30] MEDS: FLUTICASONE/VILANTEROL 1 EACH BLST.W.DEV INH SCH (09:02)
[2017-04-30] MEDS: SULFAMETH/TRIMETH 800/160 MG TABLET PO SCH (09:03)
[2017-04-30] MEDS: LACTOBACILLUS RHAMNOSUS GG 1 EACH CAPSULE PO SCH ×2 (09:03→20:53)
[2017-04-30] MEDS: QUETIAPINE FUMARATE 25 MG TABLET PO SCH (09:03)
[2017-04-30] MEDS: CALCIUM CARB/VITAMIN D 500MG-200UNITS TABLET PO SCH ×2 (09:03→17:13)
[2017-04-30] MEDS: SPIRONOLACTONE 50 MG TABLET PO SCH (09:03)
[2017-04-30] MEDS: CLOPIDOGREL 75 MG TABLET PO SCH (09:03)
[2017-04-30] MEDS: VALSARTAN 160 MG TABLET PO SCH (09:03)
[2017-04-30] MEDS: METOCLOPRAMIDE HCL 5 MG TABLET PO SCH (09:04)
[2017-04-30] MEDS: METOPROLOL SUCCINATE XL 25 MG TAB.SR.24H PO SCH (09:04)
[2017-04-30] MEDS: Z GUARD REMEDY PASTE 57 GM TUBE TOP SCH ×2 (09:05→20:56)
[2017-04-30] MEDS: NYSTATIN/TRIAMCINOLONE CREAM 15 GM TUBE TOP SCH ×2 (09:05→20:55)
[2017-04-30] MEDS: ERYTHROMYCIN ETHYLSUCC 200 MG/5 ML SUSPENSION 100ML PO SCH ×2 (09:12→20:55)
--- NOTE | 2017-04-30 11:50 | NUR ---
Patient noted resting in bed with family at bed side, no complaints of pain, no signs of distress noted, call light in reach, bed locked and in lowest position, too all am medications, bed alarm in place
--- NOTE | 2017-04-30 13:24 | NUR ---
INTERDISCIPLINARY TEAM CONFERENCE
[2017-04-30 15:20] LABS: BASOPHILS % (AUTO) 0.4 % (0.0-2.0); EOSINOPHILS # (AUTO) 0.1 K/uL (0.0-0.7); HEMATOCRIT 38.9 % (31.2-41.9); HEMOGLOBIN 13.3 g/dL (10.9-14.3); LYMPHOCYTES # (AUTO) 1.5 K/uL (20.0-40.0); LYMPHOCYTES % (AUTO) 22.2 % (20.5-51.5); MEAN CORPUSCULAR HEMOGLOBIN 29.4 uug (24.7-32.8); MEAN CORPUSCULAR HGB CONC 34 g/dL (32.3-35.6); MEAN CORPUSCULAR VOLUME 85.9 fL (75.5-95.3); MONOCYTES # (AUTO) 0.8 K/uL (2.0-10.0); MONOCYTES % (AUTO) 11.4 % (0.0-11.0); NEUTROPHILS # (AUTO) 4.3 K/uL (1.8-8.9); PLATELET COUNT (AUTO) 425 K/uL (179-408); RED BLOOD CELL COUNT(AUTO) 4.53 MIL/uL (3.63-4.92); WHITE BLOOD COUNT (AUTO) 6.7 K/uL (3.8-11.8)
[2017-04-30 15:27] LABS: ALANINE AMINOTRANSFERASE 27 U/L (14-59); ALKALINE PHOSPHATASE 86 U/L (50-136); ASPARTATE AMINOTRANSFERASE 19 U/L (15-37); BILIRUBIN,TOTAL 0.4 mg/dL (0.2-1.0); CARBON DIOXIDE 24 mmol/L (21-32); CREATININE 1.3 mg/dL (0.6-1.3); GLUCOSE 94 mg/dL (74-106); MAGNESIUM 1.6 mg/dL (1.8-2.4); PHOSPHOROUS 4.2 mg/dL (2.5-4.9); TOTAL PROTEIN, SERUM 6.7 g/dL (6.4-8.2); UREA NITROGEN, BLOOD 17 mg/dL (7-18)
[2017-04-30 15:44] LABS: CHLORIDE 86 mmol/L (98-107); POTASSIUM 5.3 mmol/L (3.5-5.1)
--- NOTE | 2017-04-30 16:13 | NUR ---
CRITICAL LAB VALUE (116 SODIUM), VIP PRODUCTION CONSULTANT CONTACTED AT THIS TIME, AWAITING RETURN CALL FROM
[2017-04-30] MEDS: MONTELUKAST SODIUM 10 MG TABLET PO SCH (17:13)
--- NOTE | 2017-04-30 18:56 | NUR ---
VICE PRESIDENT QUALITY ASSURANCE PAGED A TOTAL OF THREE TIMES THIS SHIFT REGARDING CRITICAL SODIUM LEVEL 116, MD OLSON INFORMED ONE TIME REGARDING CRITICAL SODIUM LEVEL OF 116, AWAITING RETURNED CALL
--- NOTE | 2017-04-30 19:11 | NUR ---
MD JB ROSA CALLED WITH ORDERS FOR 1) SODIUM CHLORIDE TAB BID 2) BUN LAB 05/01/17
--- NOTE | 2017-04-30 19:40 | NUR ---
PATIENT LYING ON BED, INTERMITTENTLY SLEEPING, EASILY AROUSING. NO SOB NOTED. PATIENT ON FLUID RESTRICTION 1000 ML/DAY.
[2017-04-30 20:21] VITALS: BP 143/64
[2017-04-30] MEDS: TRAZODONE 50 MG TABLET PO SCH (20:53)
[2017-04-30] MEDS: SIMVASTATIN 10 MG TABLET PO SCH (20:53)
[2017-04-30] MEDS: SODIUM CHLORIDE 1,000 MG TABLET PO SCH (20:53)
--- NOTE | 2017-04-30 21:00 | NUR ---
PATIENT ALERT AND AWAKE, ASSISTED TO THE REST ROOM PER REQUEST
--- NOTE | 2017-05-01 06:03 | NUR ---
Patient Intermittently sleeping, easitly arousing to verbal response.,No distress noted. safety measures observed.
[2017-05-01] MEDS: PANTOPRAZOLE SODIUM 40 MG TABLET.DR PO SCH (06:37)
[2017-05-01] MEDS: SUCRALFATE 1 G/10 ML LIQUID UDC PO SCH ×3 (06:37→17:21)
--- NOTE | 2017-05-01 07:34 | NUR ---
Patient noted resting in bed with eyes closed, no complaints of pain noted, no signs of distress noted, call light in reach, bed locked and in lowest position, bed alarm in place
[2017-05-01 08:00] VITALS: BP 142/71
[2017-05-01] MEDS: FLUTICASONE/VILANTEROL 1 EACH BLST.W.DEV INH SCH (08:28)
[2017-05-01] MEDS: LACTOBACILLUS RHAMNOSUS GG 1 EACH CAPSULE PO SCH ×2 (08:34→20:40)
[2017-05-01] MEDS: SPIRONOLACTONE 50 MG TABLET PO SCH (08:34)
[2017-05-01] MEDS: CLOPIDOGREL 75 MG TABLET PO SCH (08:34)
[2017-05-01] MEDS: SODIUM CHLORIDE 1,000 MG TABLET PO SCH ×3 (08:34→17:21)
[2017-05-01] MEDS: CALCIUM CARB/VITAMIN D 500MG-200UNITS TABLET PO SCH ×2 (08:34→17:21)
[2017-05-01] MEDS: SENNOSIDES/DOCUSATE SODIUM TABLET PO SCH (08:34)
[2017-05-01] MEDS: QUETIAPINE FUMARATE 25 MG TABLET PO SCH (08:34)
[2017-05-01] MEDS: SULFAMETH/TRIMETH 800/160 MG TABLET PO SCH (08:34)
[2017-05-01] MEDS: VALSARTAN 160 MG TABLET PO SCH (08:35)
[2017-05-01] MEDS: METOPROLOL SUCCINATE XL 25 MG TAB.SR.24H PO SCH (08:35)
[2017-05-01] MEDS: ERYTHROMYCIN ETHYLSUCC 200 MG/5 ML SUSPENSION 100ML PO SCH ×2 (08:36→20:40)
[2017-05-01] MEDS: NYSTATIN/TRIAMCINOLONE CREAM 15 GM TUBE TOP SCH ×2 (08:37→20:41)
[2017-05-01] MEDS: Z GUARD REMEDY PASTE 57 GM TUBE TOP SCH ×2 (08:38→20:42)
[2017-05-01] MEDS: METOCLOPRAMIDE HCL 5 MG TABLET PO SCH (08:41)
[2017-05-01] MEDS: MONTELUKAST SODIUM 10 MG TABLET PO SCH (17:21)
--- NOTE | 2017-05-01 18:32 | NUR ---
NO SIGNS OF DISTRESS NOTED THIS SHIFT, NO COMPLAINTS OF PAIN, REPORTS OF NAUSEA WITH MEDICATION ADMINISTRATION, PRESCRIBED REGLAN GIVEN, PRESCRIBED CREAM APPLIED TO RIGHT AXILLAE ORDERED, CALL LIGHT IN REACH, BED LOCKED AND IN LOWEST POSITION, ALL NEEDS MET AT THIS TIME
--- NOTE | 2017-05-01 19:44 | NUR ---
Patient on bed, watching Tv. No distress noted. No n/v. safety measures observed. call light in reach.
[2017-05-01 19:58] VITALS: BP 102/50
[2017-05-01] MEDS: SIMVASTATIN 10 MG TABLET PO SCH (20:40)
[2017-05-01] MEDS: TRAZODONE 50 MG TABLET PO SCH (20:40)
--- NOTE | 2017-05-02 06:15 | NUR ---
Patient intermittently sleeping, no c/o of pain or any discomfort. Soft BM x 2 during the shift.
[2017-05-02] MEDS: SUCRALFATE 1 G/10 ML LIQUID UDC PO SCH ×3 (06:50→16:57)
[2017-05-02] MEDS: PANTOPRAZOLE SODIUM 40 MG TABLET.DR PO SCH (06:50)
[2017-05-02 07:19] LABS: BASOPHILS # (AUTO) 0.1 K/uL (0.0-8.0); BASOPHILS % (AUTO) 0.8 % (0.0-2.0); EOSINOPHILS # (AUTO) 0.1 K/uL (0.0-0.7); EOSINOPHILS % (AUTO) 1.6 % (0.0-7.0); HEMATOCRIT 40.2 % (31.2-41.9); HEMOGLOBIN 13.8 g/dL (10.9-14.3); LYMPHOCYTES % (AUTO) 27.9 % (20.5-51.5); MEAN CORPUSCULAR HEMOGLOBIN 29.6 uug (24.7-32.8); MEAN CORPUSCULAR HGB CONC 34 g/dL (32.3-35.6); MEAN CORPUSCULAR VOLUME 86.2 fL (75.5-95.3); MONOCYTES # (AUTO) 0.7 K/uL (2.0-10.0); MONOCYTES % (AUTO) 10.2 % (0.0-11.0); NEUTROPHILS # (AUTO) 4.3 K/uL (1.8-8.9); NEUTROPHILS % (AUTO) 59.5 % (38.5-71.5); PLATELET COUNT (AUTO) 435 K/uL (179-408); RED BLOOD CELL COUNT(AUTO) 4.66 MIL/uL (3.63-4.92); WHITE BLOOD COUNT (AUTO) 7.2 K/uL (3.8-11.8)
[2017-05-02 07:38] LABS: ALANINE AMINOTRANSFERASE 22 U/L (14-59); ALKALINE PHOSPHATASE 83 U/L (50-136); ASPARTATE AMINOTRANSFERASE 14 U/L (15-37); BILIRUBIN,TOTAL 0.3 mg/dL (0.2-1.0); CARBON DIOXIDE 22 mmol/L (21-32); CHLORIDE 94 mmol/L (98-107); CREATININE 1.5 mg/dL (0.6-1.3); GLUCOSE 96 mg/dL (74-106); MAGNESIUM 1.8 mg/dL (1.8-2.4); PHOSPHOROUS 3.8 mg/dL (2.5-4.9); TOTAL PROTEIN, SERUM 6.5 g/dL (6.4-8.2)
[2017-05-02 07:56] LABS: UREA NITROGEN, BLOOD 25 mg/dL (7-18)
[2017-05-02 08:00] VITALS: BP 113/61
[2017-05-02] MEDS: SENNOSIDES/DOCUSATE SODIUM TABLET PO SCH (09:00)
--- NOTE | 2017-05-02 09:00 | NUR ---
Received patient, awake, alert x4. With some discomfort over abdomen and feels nauseated no SOB or other pain noted. Reglan routine given. Will continue to monitor.
--- NOTE | 2017-05-02 09:30 | NUR ---
Nita-Colace held at this time. Patient had 3 soft, grass like bowel movements from previous shift, as given by report from it risk analyst. Patient also claims she had 3 bowel movements.
[2017-05-02] MEDS: METOCLOPRAMIDE HCL 5 MG TABLET PO SCH (09:32)
[2017-05-02] MEDS: FLUTICASONE/VILANTEROL 1 EACH BLST.W.DEV INH SCH (09:32)
[2017-05-02] MEDS: CLONIDINE-TTS 3 PATCH TD SCH (09:33)
[2017-05-02] MEDS: SODIUM CHLORIDE 1,000 MG TABLET PO SCH ×3 (09:33→17:02)
[2017-05-02] MEDS: LACTOBACILLUS RHAMNOSUS GG 1 EACH CAPSULE PO SCH ×2 (09:34→21:06)
[2017-05-02] MEDS: CLOPIDOGREL 75 MG TABLET PO SCH (09:34)
[2017-05-02] MEDS: CALCIUM CARB/VITAMIN D 500MG-200UNITS TABLET PO SCH ×2 (09:34→17:02)
[2017-05-02] MEDS: QUETIAPINE FUMARATE 25 MG TABLET PO SCH (09:34)
[2017-05-02] MEDS: VALSARTAN 160 MG TABLET PO SCH (09:34)
[2017-05-02] MEDS: METOPROLOL SUCCINATE XL 25 MG TAB.SR.24H PO SCH (09:34)
[2017-05-02] MEDS: SPIRONOLACTONE 50 MG TABLET PO SCH (09:34)
[2017-05-02] MEDS: ERYTHROMYCIN ETHYLSUCC 200 MG/5 ML SUSPENSION 100ML PO SCH ×2 (09:35→21:11)
[2017-05-02] MEDS: NYSTATIN/TRIAMCINOLONE CREAM 15 GM TUBE TOP SCH ×2 (09:37→21:07)
[2017-05-02] MEDS: Z GUARD REMEDY PASTE 57 GM TUBE TOP SCH ×2 (09:37→21:07)
--- NOTE | 2017-05-02 10:42 | NUR ---
Morning care done. In bed resting comfortably. No discomforts at this time.
[2017-05-02] MEDS: MONTELUKAST SODIUM 10 MG TABLET PO SCH (17:02)
--- NOTE | 2017-05-02 18:00 | NUR ---
Patient alert, resting in bed, in no distress, no SOB, no c/o of chest pain. Administered meds as ordered. All needs met and attended. Safety measures in place.
[2017-05-02 19:30] VITALS: BP 143/57
--- NOTE | 2017-05-02 19:30 | NUR ---
Received patient in bed, awake and verbally responsive in Lao. Assisted patient in going to the bathroom. Vital signs taken and recorded. No acute signs of any respiratory distress. Denies of any pain. Pertinent assessment done. Safety measures provided. Call light within reach. Will monitor the patient.
[2017-05-02] MEDS: SIMVASTATIN 10 MG TABLET PO SCH (21:06)
[2017-05-02] MEDS: TRAZODONE 50 MG TABLET PO SCH (21:09)
[2017-05-03] MEDS: PANTOPRAZOLE SODIUM 40 MG TABLET.DR PO SCH (06:15)
[2017-05-03] MEDS: SUCRALFATE 1 G/10 ML LIQUID UDC PO SCH ×3 (06:15→17:46)
[2017-05-03 07:00] VITALS: BP 143/72
--- NOTE | 2017-05-03 08:00 | NUR ---
Received patient, awake, alert x3 resting in bed. Patient claims she was not able to sleep well and has minimal head ache,offered pain medications but refused. No nausea, vomiting. No SOB or chest pains, saturation WNL at RA. Call light within reach.
[2017-05-03] MEDS: METOCLOPRAMIDE HCL 5 MG TABLET PO SCH (08:53)
[2017-05-03] MEDS: FLUTICASONE/VILANTEROL 1 EACH BLST.W.DEV INH SCH (08:53)
[2017-05-03] MEDS: SPIRONOLACTONE 50 MG TABLET PO SCH (08:54)
[2017-05-03] MEDS: SODIUM CHLORIDE 1,000 MG TABLET PO SCH ×3 (08:54→17:46)
[2017-05-03] MEDS: CALCIUM CARB/VITAMIN D 500MG-200UNITS TABLET PO SCH ×2 (08:54→17:46)
[2017-05-03] MEDS: CLOPIDOGREL 75 MG TABLET PO SCH (08:54)
[2017-05-03] MEDS: METOPROLOL SUCCINATE XL 25 MG TAB.SR.24H PO SCH (08:54)
[2017-05-03] MEDS: VALSARTAN 160 MG TABLET PO SCH (08:54)
[2017-05-03] MEDS: QUETIAPINE FUMARATE 25 MG TABLET PO SCH (08:54)
[2017-05-03] MEDS: SENNOSIDES/DOCUSATE SODIUM TABLET PO SCH (08:55)
[2017-05-03] MEDS: NYSTATIN/TRIAMCINOLONE CREAM 15 GM TUBE TOP SCH ×2 (08:55→21:03)
[2017-05-03] MEDS: ERYTHROMYCIN ETHYLSUCC 200 MG/5 ML SUSPENSION 100ML PO SCH ×2 (08:55→21:04)
[2017-05-03] MEDS: Z GUARD REMEDY PASTE 57 GM TUBE TOP SCH ×2 (08:56→21:04)
--- NOTE | 2017-05-03 09:00 | NUR ---
Refused Nita-Colace patient claims in gives her cramps. Discussed risks and benefits. But patient still refused.
[2017-05-03] MEDS: LACTOBACILLUS RHAMNOSUS GG 1 EACH CAPSULE PO SCH ×2 (09:56→21:02)
[2017-05-03] MEDS: MONTELUKAST SODIUM 10 MG TABLET PO SCH (17:46)
--- NOTE | 2017-05-03 18:00 | NUR ---
In bed resting well, denies pain. No SOB or other discomfort noted
--- NOTE | 2017-05-03 19:30 | NUR ---
Received patient in bed, asleep and arouses easily by name. Vital signs taken and recorded. No acute signs of any respiratory distress. Denies of any pain. Pertinent assessment done. Safety measures provided. Call light within reach. Will monitor the patient.
[2017-05-03 20:03] VITALS: BP 112/59
[2017-05-03] MEDS: TRAZODONE 50 MG TABLET PO SCH (21:02)
[2017-05-03] MEDS: SIMVASTATIN 10 MG TABLET PO SCH (21:03)
[2017-05-04] MEDS: SUCRALFATE 1 G/10 ML LIQUID UDC PO SCH ×3 (06:14→16:43)
[2017-05-04] MEDS: PANTOPRAZOLE SODIUM 40 MG TABLET.DR PO SCH (06:14)
[2017-05-04 07:00] VITALS: BP 142/72
[2017-05-04] MEDS: FLUTICASONE/VILANTEROL 1 EACH BLST.W.DEV INH SCH (08:40)
[2017-05-04] MEDS: SENNOSIDES/DOCUSATE SODIUM TABLET PO SCH (08:41)
[2017-05-04] MEDS: CALCIUM CARB/VITAMIN D 500MG-200UNITS TABLET PO SCH ×2 (08:41→17:01)
[2017-05-04] MEDS: QUETIAPINE FUMARATE 25 MG TABLET PO SCH (08:42)
[2017-05-04] MEDS: LACTOBACILLUS RHAMNOSUS GG 1 EACH CAPSULE PO SCH ×2 (08:42→20:32)
[2017-05-04] MEDS: SODIUM CHLORIDE 1,000 MG TABLET PO SCH ×3 (08:42→17:01)
[2017-05-04] MEDS: CLOPIDOGREL 75 MG TABLET PO SCH (08:42)
[2017-05-04] MEDS: METOPROLOL SUCCINATE XL 25 MG TAB.SR.24H PO SCH (08:43)
[2017-05-04] MEDS: SPIRONOLACTONE 50 MG TABLET PO SCH (08:43)
[2017-05-04] MEDS: VALSARTAN 160 MG TABLET PO SCH (08:43)
[2017-05-04] MEDS: Z GUARD REMEDY PASTE 57 GM TUBE TOP SCH ×2 (08:43→20:31)
[2017-05-04] MEDS: NYSTATIN/TRIAMCINOLONE CREAM 15 GM TUBE TOP SCH ×2 (08:44→20:32)
[2017-05-04] MEDS: METOCLOPRAMIDE HCL 5 MG TABLET PO SCH (08:53)
[2017-05-04] MEDS: ERYTHROMYCIN ETHYLSUCC 200 MG/5 ML SUSPENSION 100ML PO SCH ×2 (08:56→20:35)
--- NOTE | 2017-05-04 11:54 | NUR ---
SBAR report received, board updated. Pt assessed, denies discomfort at this time. Pt compliant with routine medications crushed when possible. Bed in locked and lowest position, with side rails up x2. All needs attended to. Pt able to make needs known. Call light and placed within reach. Will continue to monitor.
[2017-05-04] MEDS: MONTELUKAST SODIUM 10 MG TABLET PO SCH (17:01)
--- NOTE | 2017-05-04 17:54 | NUR ---
Pt comfortably resting in bed, denies pain. Pt compliant with taking all routine evening medications, requesting each pill be taken whole instead of crushed. All safety and comfort measures implemented. Call light and personal items placed within reach. Will continue to monitor and endorse to second shift supervisor.
--- NOTE | 2017-05-04 19:30 | NUR ---
Patient already in bed, asleep but arouses when called by name. Vital signs taken and recorded. No acute signs of any respiratory distress. Denies of any pain. Pertinent assessment done. Safety measures provided. Call light within reach. Will monitor the patient.
[2017-05-04] MEDS: SIMVASTATIN 10 MG TABLET PO SCH (20:32)
[2017-05-04] MEDS: TRAZODONE 50 MG TABLET PO SCH (20:35)
[2017-05-04 20:56] VITALS: BP 103/64
[2017-05-05] MEDS: SUCRALFATE 1 G/10 ML LIQUID UDC PO SCH ×3 (06:38→17:27)
[2017-05-05] MEDS: PANTOPRAZOLE SODIUM 40 MG TABLET.DR PO SCH (06:38)
--- NOTE | 2017-05-05 07:45 | NUR ---
PATIENT NOTED RESTING I BED WITH EYES CLOSED, NO COMPLAINTS OF PAIN NO SIGNS OF DISTRESS NOTED, CALL LIGHT IN REACH, BED LOCKED AND IN LOWEST POSITION, X2 BED RAILS, ALL NEEDS MET AT THIS TIME
[2017-05-05 08:00] VITALS: BP 116/69
[2017-05-05] MEDS: CLOPIDOGREL 75 MG TABLET PO SCH (09:17)
[2017-05-05] MEDS: SODIUM CHLORIDE 1,000 MG TABLET PO SCH ×3 (09:17→17:27)
[2017-05-05] MEDS: LACTOBACILLUS RHAMNOSUS GG 1 EACH CAPSULE PO SCH ×2 (09:17→20:52)
[2017-05-05] MEDS: QUETIAPINE FUMARATE 25 MG TABLET PO SCH (09:17)
[2017-05-05] MEDS: CALCIUM CARB/VITAMIN D 500MG-200UNITS TABLET PO SCH ×2 (09:17→17:27)
[2017-05-05] MEDS: FLUTICASONE/VILANTEROL 1 EACH BLST.W.DEV INH SCH (09:17)
[2017-05-05] MEDS: SPIRONOLACTONE 50 MG TABLET PO SCH (09:17)
[2017-05-05] MEDS: SENNOSIDES/DOCUSATE SODIUM TABLET PO SCH (09:17)
[2017-05-05] MEDS: METOCLOPRAMIDE HCL 5 MG TABLET PO SCH (09:18)
[2017-05-05] MEDS: VALSARTAN 160 MG TABLET PO SCH (09:18)
[2017-05-05] MEDS: ERYTHROMYCIN ETHYLSUCC 200 MG/5 ML SUSPENSION 100ML PO SCH ×2 (09:19→20:53)
[2017-05-05] MEDS: METOPROLOL SUCCINATE XL 25 MG TAB.SR.24H PO SCH (09:19)
[2017-05-05] MEDS: NYSTATIN/TRIAMCINOLONE CREAM 15 GM TUBE TOP SCH ×2 (09:55→20:54)
[2017-05-05] MEDS: Z GUARD REMEDY PASTE 57 GM TUBE TOP SCH ×2 (09:55→20:54)
[2017-05-05] MEDS: MONTELUKAST SODIUM 10 MG TABLET PO SCH (17:27)
--- NOTE | 2017-05-05 18:47 | NUR ---
PATIENT TOOK ALL EVENING MEDICATIONS, NO COMPLAINTS OF PAIN OR SINGS OF DISTRESS NOTED
[2017-05-05 19:54] VITALS: BP 111/53
--- NOTE | 2017-05-05 20:00 | NUR ---
received pt on bed awake, alert and oriented x3. Able to make needs known. No acute distress noted. No complaints of pain or discomfort. Breathing even and unlabored with normal respirations. All due meds given as ordered and well tolerated, no signs of aspiration noted. Vital signs stable. Kept clean, dry and comfortable. Call light placed within reach. All needs attended.
[2017-05-05] MEDS: TRAZODONE 50 MG TABLET PO SCH (20:53)
[2017-05-05] MEDS: SIMVASTATIN 10 MG TABLET PO SCH (20:53)
--- NOTE | 2017-05-06 06:03 | NUR ---
Patient slept comfortably throughout the shift. No apparent distress noted. Denies pain. No SOB noted. Ambulates to the bathroom with walker and with assistance. Safety and fall precautions observed and maintained. Call light within reach. All needs attended.
[2017-05-06] MEDS: PANTOPRAZOLE SODIUM 40 MG TABLET.DR PO SCH (06:17)
[2017-05-06] MEDS: SUCRALFATE 1 G/10 ML LIQUID UDC PO SCH ×2 (06:18→11:52)
--- NOTE | 2017-05-06 07:19 | NUR ---
Patient noted resting in bed with eyes closed arouses easily, no complaints of pain, call light in reach, no distress noted, bed locked and in lowest position, x 2 bed rails, all needs met at this time
[2017-05-06 08:15] VITALS: BP 133/65
[2017-05-06 08:19] LABS: BASOPHILS # (AUTO) 0.1 K/uL (0.0-8.0); EOSINOPHILS # (AUTO) 0.1 K/uL (0.0-0.7); EOSINOPHILS % (AUTO) 2.4 % (0.0-7.0); HEMATOCRIT 36.6 % (31.2-41.9); HEMOGLOBIN 12.4 g/dL (10.9-14.3); LYMPHOCYTES # (AUTO) 1.9 K/uL (20.0-40.0); LYMPHOCYTES % (AUTO) 31.4 % (20.5-51.5); MEAN CORPUSCULAR HEMOGLOBIN 29.5 uug (24.7-32.8); MEAN CORPUSCULAR HGB CONC 34 g/dL (32.3-35.6); MEAN CORPUSCULAR VOLUME 87.3 fL (75.5-95.3); MONOCYTES # (AUTO) 0.5 K/uL (2.0-10.0); MONOCYTES % (AUTO) 8.9 % (0.0-11.0); NEUTROPHILS # (AUTO) 3.3 K/uL (1.8-8.9); NEUTROPHILS % (AUTO) 56.3 % (38.5-71.5); PLATELET COUNT (AUTO) 402 K/uL (179-408); RED BLOOD CELL COUNT(AUTO) 4.19 MIL/uL (3.63-4.92); WHITE BLOOD COUNT (AUTO) 5.9 K/uL (3.8-11.8)
[2017-05-06] MEDS: VALSARTAN 160 MG TABLET PO SCH (08:21)
[2017-05-06] MEDS: SODIUM CHLORIDE 1,000 MG TABLET PO SCH ×2 (08:21→11:52)
[2017-05-06] MEDS: METOCLOPRAMIDE HCL 5 MG TABLET PO SCH (08:21)
[2017-05-06] MEDS: FLUTICASONE/VILANTEROL 1 EACH BLST.W.DEV INH SCH (08:21)
[2017-05-06 08:22] VITALS: BP 133/65
[2017-05-06] MEDS: QUETIAPINE FUMARATE 25 MG TABLET PO SCH (08:22)
[2017-05-06] MEDS: METOPROLOL SUCCINATE XL 25 MG TAB.SR.24H PO SCH (08:22)
[2017-05-06] MEDS: CALCIUM CARB/VITAMIN D 500MG-200UNITS TABLET PO SCH (08:22)
[2017-05-06] MEDS: SPIRONOLACTONE 50 MG TABLET PO SCH (08:22)
[2017-05-06] MEDS: LACTOBACILLUS RHAMNOSUS GG 1 EACH CAPSULE PO SCH (08:22)
[2017-05-06] MEDS: CLOPIDOGREL 75 MG TABLET PO SCH (08:22)
[2017-05-06] MEDS: SENNOSIDES/DOCUSATE SODIUM TABLET PO SCH (08:22)
[2017-05-06] MEDS: NYSTATIN/TRIAMCINOLONE CREAM 15 GM TUBE TOP SCH (08:23)
[2017-05-06] MEDS: Z GUARD REMEDY PASTE 57 GM TUBE TOP SCH (08:24)
[2017-05-06] MEDS: ERYTHROMYCIN ETHYLSUCC 200 MG/5 ML SUSPENSION 100ML PO SCH (08:24)
[2017-05-06 08:27] LABS: ALANINE AMINOTRANSFERASE 18 U/L (14-59); ALKALINE PHOSPHATASE 82 U/L (50-136); ASPARTATE AMINOTRANSFERASE 14 U/L (15-37); BILIRUBIN,TOTAL 0.3 mg/dL (0.2-1.0); CARBON DIOXIDE 24 mmol/L (21-32); CHLORIDE 98 mmol/L (98-107); CREATININE 1.2 mg/dL (0.6-1.3); GLUCOSE 102 mg/dL (74-106); MAGNESIUM 1.7 mg/dL (1.8-2.4); PHOSPHOROUS 4.1 mg/dL (2.5-4.9); POTASSIUM 5.2 mmol/L (3.5-5.1); TOTAL PROTEIN, SERUM 6.2 g/dL (6.4-8.2); UREA NITROGEN, BLOOD 16 mg/dL (7-18)
[2017-05-06] MEDS ORDERED: MAGNESIUM OXIDE 400 MG TABLET PO ONE (13:30)
--- NOTE | 2017-05-06 14:47 | NUR ---
121/73, 88% on room air, 98.1 oral temperature, 22 respirations, 89 pulse. Patient discharged home with home health agency ([facility]-[phone]) via wheelchair and private car. Medications faxed to [facility], exit care provided, discharge instructions given, Daughter states she set up follow up appointment. All belongings accounted for and placed in chart.
== END 2017-05-06 14:35 | disposition home health service (06) | DRG 281 ==
PROVIDERS: ADMIT Physical Medicine & Rehabilitation Pain Medicine; ATTEND Physical Medicine & Rehabilitation Pain Medicine
DX: I21.A1 Myocardial infarction type 2 (principal); N39.0 Urinary tract infection, site not specified; E22.2 Syndrome of inappropriate secretion of antidiuretic hormone; E11.9 Type 2 diabetes mellitus without complications; I11.0 Hypertensive heart disease with heart failure; I50.32 Chronic diastolic (congestive) heart failure; K31.84 Gastroparesis; F03.90 Unspecified dementia, unspecified severity, without behavioral disturbance, psychotic disturbance, mood disturbance, and anxiety; E78.5 Hyperlipidemia, unspecified; B96.20 Unspecified Escherichia coli [E. coli] as the cause of diseases classified elsewhere; J44.9 Chronic obstructive pulmonary disease, unspecified; K21.9 Gastro-esophageal reflux disease without esophagitis; M19.90 Unspecified osteoarthritis, unspecified site; K57.90 Diverticulosis of intestine, part unspecified, without perforation or abscess without bleeding; L30.4 Erythema intertrigo; Z88.0 Allergy status to penicillin
CPT/HCPCS: 36415; 70030-TC; 74230; 83735; 84100; 84300; 84520; 85025; 92523; 92526; 92610; 92611; 97110; 97112; 97116; 97165; 97530; 97535; A4663; J0692; J3490; J7060; J8597

== ENCOUNTER 2017-07-13 14:39 | Inpatient (IN) | payer MEDICARE, MEDICAID ==
[~2017-07-13] VITALS: Ht 152.4 cm; Wt 64.6 kg
[~2017-07-13 14:39] MED LIST changes: +ACET-2154 PO; +CEFE1VIA7 IV; +ERYT200S16 PO; +METR500P3 IV; +ONDA4AMP IJ; +VALS160T2 PO
[2017-07-13] MEDS ORDERED: ALBUTEROL SULFATE 2.5 MG/3 ML NEBU NEB ONE (15:15)
[2017-07-13] MEDS ORDERED: IPRATROPIUM BROMIDE 0.5 MG/2.5 ML NEBU NEB ONE (15:15)
[2017-07-13] MEDS ORDERED: ASPIRIN 325 MG TABLET PO ONE (15:15)
[2017-07-13] MEDS ORDERED: methylPREDNISolone SOD SUCC 125 MG/2 ML VIAL IV ONE (15:15)
[2017-07-13] MEDS ORDERED: ALBUTEROL SULFATE 2.5 MG/3 ML NEBU ONE (15:16)
[2017-07-13] MEDS ORDERED: IPRATROPIUM BROMIDE 0.5 MG/2.5 ML NEBU ONE (15:16)
[2017-07-13] MEDS ORDERED: methylPREDNISolone SOD SUCC 125 MG/2 ML VIAL ONE (15:20)
[2017-07-13] MEDS ORDERED: ASPIRIN 325 MG TABLET ONE (15:21)
--- NOTE | 2017-07-13 15:37 | NUR ---
PT IS IN ROOM #1A. DR EUCEDA EVALUATED THE PT.
[2017-07-13 15:44] LABS: BASOPHILS % (AUTO) 0.4 % (0.0-2.0); EOSINOPHILS # (AUTO) 0.1 K/uL (0.0-0.7); EOSINOPHILS % (AUTO) 1.7 % (0.0-7.0); HEMATOCRIT 33.1 % (31.2-41.9); HEMOGLOBIN 11.5 g/dL (10.9-14.3); LYMPHOCYTES # (AUTO) 1.3 K/uL (20.0-40.0); LYMPHOCYTES % (AUTO) 18.5 % (20.5-51.5); MEAN CORPUSCULAR HEMOGLOBIN 30.6 uug (24.7-32.8); MEAN CORPUSCULAR HGB CONC 35 g/dL (32.3-35.6); MEAN CORPUSCULAR VOLUME 88.5 fL (75.5-95.3); MONOCYTES # (AUTO) 0.9 K/uL (2.0-10.0); MONOCYTES % (AUTO) 12.4 % (0.0-11.0); NEUTROPHILS # (AUTO) 4.7 K/uL (1.8-8.9); PLATELET COUNT (AUTO) 314 K/uL (179-408); RED BLOOD CELL COUNT(AUTO) 3.74 MIL/uL (3.63-4.92); WHITE BLOOD COUNT (AUTO) 7.1 K/uL (3.8-11.8)
[2017-07-13 15:58] LABS: CARBON DIOXIDE 28 mmol/L (21-32); CHLORIDE 97 mmol/L (98-107); CREATININE 1.1 mg/dL (0.6-1.3); GLUCOSE 177 mg/dL (74-106); POTASSIUM 4.4 mmol/L (3.5-5.1); UREA NITROGEN, BLOOD 20 mg/dL (7-18)
[2017-07-13 16:11] LABS: BILIRUBIN,DIRECT 0.1 mg/dL (0.0-0.2); BILIRUBIN,TOTAL 0.2 mg/dL (0.2-1.0)
[2017-07-13] MEDS ORDERED: CLON0.3T PO (16:11)
[2017-07-13] MEDS ORDERED: QUET50TA PO (16:11)
[2017-07-13] MEDS ORDERED: CLOP75TA15 PO (16:11)
[2017-07-13] MEDS ORDERED: CLON0.1T PO (16:11)
[2017-07-13] MEDS ORDERED: TRAM50TA2 PO (16:11)
[2017-07-13] MEDS ORDERED: HYDR-4077 PO (16:11)
[2017-07-13] MEDS ORDERED: METO-356 PO (16:11)
[2017-07-13] MEDS ORDERED: ISOS30TA6 PO (16:11)
[2017-07-13] MEDS ORDERED: PANT40TA2 PO (16:11)
[2017-07-13 16:12] LABS: ALANINE AMINOTRANSFERASE 31 U/L (14-59); ALKALINE PHOSPHATASE 90 U/L (50-136); ASPARTATE AMINOTRANSFERASE 26 U/L (15-37); TOTAL PROTEIN, SERUM 6.8 g/dL (6.4-8.2)
--- NOTE | 2017-07-13 18:13 | NUR ---
REPORT WAS GIVEN TO CROSS COUNTRY COACH. PT WAS TRANSFERED TO ROOM #207.
[2017-07-13 18:29] VITALS: BP 155/86
--- NOTE | 2017-07-13 18:29 | NUR ---
RECEIVED FOR ADMISSION 81 YEARS OLD FEMALE FROM ED BY [facility] WITH DX OF CHEST PAIN PLACED INTO BED FIXED AND MADE COMFORTABLE PATIENT IS ALERT AND ORIENTED UNDERSTANDS PALESTINIAN BUT MOSTLY SERBIAN.DENIES PAIN OR DISCOMFORTS AT THIS TIME TELEMETRY APPLIED AND SHE IS SINUS RHYTHM ON SHORTNESS OF BREATH AT THIS TIME O2 DECREASED TO 2L/M MADE COMFORTABLE AND WILL ENDORSE THE ADMISSION TO THE ONCOMING SHIFT.
[2017-07-13 20:00] VITALS: BP 149/64
[2017-07-13] MEDS ORDERED: CLONIDINE HCL 0.3 MG TABLET PO PRN (20:45)
[2017-07-13] MEDS ORDERED: TRAMADOL HCL 50 MG TABLET PO PRN (20:45)
[2017-07-13] MEDS ORDERED: VALSARTAN 160 MG TABLET PO SCH (21:00)
[2017-07-13] MEDS: ERYTHROMYCIN ETHYLSUCC 200 MG/5 ML SUSPENSION 100ML PO SCH (21:00)
[2017-07-13] MEDS: hydrALAZINE HCL 50 MG TABLET PO SCH (21:39)
[2017-07-13] MEDS: SIMVASTATIN 10 MG TABLET PO SCH (21:39)
[2017-07-13] MEDS: CLONIDINE HCL 0.1 MG TABLET PO SCH (21:39)
[2017-07-13] MEDS: QUETIAPINE FUMARATE 25 MG TABLET PO SCH (21:41)
--- NOTE | 2017-07-13 23:20 | NUR ---
ERYTHROMYCIN PO WAS NOT GIVEN, MED NOT AVAILABLE AT THIS TIME.
[2017-07-14 04:00] VITALS: BP 140/63
--- NOTE | 2017-07-14 05:24 | NUR ---
SR ON TELE HR 86.
--- NOTE | 2017-07-14 05:26 | NUR ---
NO C/O SHORTNESS OF BREATH, O2 @ 2LPM VIA NC.
[2017-07-14] MEDS: hydrALAZINE HCL 50 MG TABLET PO SCH ×3 (05:42→21:23)
[2017-07-14] MEDS: CLONIDINE HCL 0.1 MG TABLET PO SCH ×3 (05:43→21:23)
[2017-07-14 06:18] LABS: HEMATOCRIT 33.5 % (31.2-41.9); HEMOGLOBIN 11.6 g/dL (10.9-14.3); LYMPHOCYTES # (AUTO) 0.9 K/uL (20.0-40.0); LYMPHOCYTES % (AUTO) 8.3 % (20.5-51.5); MEAN CORPUSCULAR HEMOGLOBIN 30.9 uug (24.7-32.8); MEAN CORPUSCULAR HGB CONC 35 g/dL (32.3-35.6); MEAN CORPUSCULAR VOLUME 88.8 fL (75.5-95.3); MONOCYTES # (AUTO) 0.1 K/uL (2.0-10.0); MONOCYTES % (AUTO) 0.9 % (0.0-11.0); NEUTROPHILS # (AUTO) 9.3 K/uL (1.8-8.9); NEUTROPHILS % (AUTO) 90.8 % (38.5-71.5); PLATELET COUNT (AUTO) 332 K/uL (179-408); RED BLOOD CELL COUNT(AUTO) 3.78 MIL/uL (3.63-4.92); WHITE BLOOD COUNT (AUTO) 10.3 K/uL (3.8-11.8)
[2017-07-14 06:30] LABS: CARBON DIOXIDE 23 mmol/L (21-32); CHLORIDE 98 mmol/L (98-107); CHOLESTEROL 179 mg/dL (<200); CREATININE 1.3 mg/dL (0.6-1.3); GLUCOSE 187 mg/dL (74-106); HDL CHOLESTEROL 81 mg/dL (40-60); MAGNESIUM 1.8 mg/dL (1.8-2.4); PHOSPHOROUS 4.2 mg/dL (2.5-4.9); POTASSIUM 4.3 mmol/L (3.5-5.1); TRIGLYCERIDES 35 MG/DL (30-150); UREA NITROGEN, BLOOD 22 mg/dL (7-18)
--- NOTE | 2017-07-14 08:00 | NUR ---
AWAKE ALERT ORTX3 COOPERATE WELL NO SOB OR PAIN ON FALL AND ASPIRATION PRECAUTION CONTINUE O2 AT 2 L VIA N/C O2 SAT WNL 96% TELE ON SR 86
[2017-07-14] MEDS: ISOSORBIDE MONONITRATE 30 MG TAB.SR.24H PO SCH (08:19)
[2017-07-14] MEDS: METOPROLOL SUCCINATE XL 25 MG TAB.SR.24H PO SCH (08:19)
[2017-07-14] MEDS: PANTOPRAZOLE SODIUM 40 MG TABLET.DR PO SCH (08:19)
--- NOTE | 2017-07-14 08:45 | NUR ---
PATIENT EATING BREAKFAST AT THIS TIME AND POSS ASPIRATION ,COUGHING AND STATE HAVING DIFF BREATHING , VS TAKEN O2 SAT LOW 86% INCREASE TO O2 MASK FOR 10 MINS AND RT WAS CALL FOR TREATMENT CHECK O2 SAT NOW WAS 100% THEN LOW O2 TO 2L VIA N/C AND CLOSED OBSERVATION DR LOBO WAS INFORM OF SITUATION
--- NOTE | 2017-07-14 09:00 | NUR ---
STATE FEEL BETTER CONTINUE MONITORING AND RT GIVEN TREATMENT PRN FOR WHEEZING
[2017-07-14] MEDS ORDERED: DEXTROSE 50% 50 ML DISP.SYRIN IV PRN (09:15)
[2017-07-14] MEDS: CLOPIDOGREL 75 MG TABLET PO SCH (09:32)
[2017-07-14] MEDS: ERYTHROMYCIN ETHYLSUCC 200 MG/5 ML SUSPENSION 100ML PO SCH ×2 (09:32→20:25)
[2017-07-14] MEDS: methylPREDNISolone SOD SUCC 125 MG/2 ML VIAL IV SCH ×2 (10:22→20:24)
[2017-07-14 11:07] VITALS: BP 122/42
[2017-07-14] MEDS ORDERED: TRAMADOL HCL 50 MG TABLET PO PRN (11:15)
[2017-07-14] MEDS: BLOOD SUGAR DIAGNOSTIC 1 EACH STRIP VI SCH ×3 (11:26→20:23)
[2017-07-14] MEDS: INSULIN REGULAR, HUMAN 300 UNIT/3 ML VIAL SQ PRN ×3 (11:28→20:30)
[2017-07-14] MEDS: VALSARTAN 160 MG TABLET PO SCH (12:13)
--- NOTE | 2017-07-14 12:30 | NUR ---
EAT LUNCH WELL NO PAIN OR SOB AT THIS TIME RESTING AND WATCHING TV QUIET IN ROOM
[2017-07-14] MEDS ORDERED: IPRATROPIUM BROMIDE 0.5 MG/2.5 ML NEBU NEB SCH (13:30)
[2017-07-14 14:09] VITALS: BP 114/48
[2017-07-14] MEDS: IPRATROPIUM BROMIDE 0.5 MG/2.5 ML NEBU NEB PRN ×3 (14:24→21:49)
[2017-07-14 15:24] VITALS: BP 110/46
[2017-07-14] MEDS: ACETAMINOPHEN/CODEINE 300-30 MG TABLET PO PRN (17:11)
[2017-07-14] MEDS: MONTELUKAST SODIUM 10 MG TABLET PO SCH (17:11)
--- NOTE | 2017-07-14 17:30 | NUR ---
PATIENT HAVING EPISODE OF COUGHING AGAIN WHEN EAT DINNER AND HAVE SOB WHEEZING RT WAS INFORM AND GIVEN TREATMENT ORDERR [facility] FOR SWALLOWING TEST IN AM
--- NOTE | 2017-07-14 17:45 | NUR ---
STABLE HEMODYNAMIC STATUS ,PAIN UNDER CONTROL SAFETY MEASURE PROVIDED CALL LIGHT IN REACH AND BED ALARM ON
[2017-07-14] MEDS: ALBUTEROL SULFATE 2.5 MG/3 ML NEBU NEB PRN ×2 (17:46→21:49)
[2017-07-14 19:55] VITALS: BP 120/50
--- NOTE | 2017-07-14 20:00 | NUR ---
PATIENT IS AWAKE IN BED WATCHING TV. SHE DENIES PAIN OR RESP DISTRESS ON ASSESSMENT. HOB AT 35 DEGREES TO EASE BREATHING. SAFETY MEASURES IN PLACE, CALL LIGHT LEFT WITHIN PATIENT'S REACH
[2017-07-14] MEDS: QUETIAPINE FUMARATE 25 MG TABLET PO SCH (20:24)
[2017-07-14] MEDS: SIMVASTATIN 10 MG TABLET PO SCH (20:24)
[2017-07-15] VITALS: BP 115/63
[2017-07-15 04:00] VITALS: BP 122/63
[2017-07-15] MEDS: CLONIDINE HCL 0.1 MG TABLET PO SCH ×3 (06:17→21:15)
[2017-07-15] MEDS: hydrALAZINE HCL 50 MG TABLET PO SCH ×3 (06:17→21:16)
[2017-07-15] MEDS: BLOOD SUGAR DIAGNOSTIC 1 EACH STRIP VI SCH ×4 (06:18→21:20)
--- NOTE | 2017-07-15 06:23 | NUR ---
Patient slept well throughout the shift. Breathing treatment given x1 on this shift. No resp distress or acute distress at present, patient saturating at 95% on O2 at 2LPM. safety measures maintained at all times, call light within patient's reach. Bed alarm on
[2017-07-15 06:30] LABS: BASOPHILS % (AUTO) 0.2 % (0.0-2.0); HEMATOCRIT 33.7 % (31.2-41.9); HEMOGLOBIN 11.5 g/dL (10.9-14.3); LYMPHOCYTES # (AUTO) 0.9 K/uL (20.0-40.0); LYMPHOCYTES % (AUTO) 6.5 % (20.5-51.5); MEAN CORPUSCULAR HEMOGLOBIN 30.4 uug (24.7-32.8); MEAN CORPUSCULAR HGB CONC 34 g/dL (32.3-35.6); MEAN CORPUSCULAR VOLUME 89.4 fL (75.5-95.3); MONOCYTES # (AUTO) 0.4 K/uL (2.0-10.0); MONOCYTES % (AUTO) 2.9 % (0.0-11.0); NEUTROPHILS # (AUTO) 12.2 K/uL (1.8-8.9); NEUTROPHILS % (AUTO) 90.4 % (38.5-71.5); PLATELET COUNT (AUTO) 211 K/uL (179-408); RED BLOOD CELL COUNT(AUTO) 3.77 MIL/uL (3.63-4.92); WHITE BLOOD COUNT (AUTO) 13.5 K/uL (3.8-11.8)
[2017-07-15 06:41] LABS: ALANINE AMINOTRANSFERASE 28 U/L (14-59); ALKALINE PHOSPHATASE 80 U/L (50-136); ASPARTATE AMINOTRANSFERASE 18 U/L (15-37); BILIRUBIN,TOTAL 0.3 mg/dL (0.2-1.0); CARBON DIOXIDE 24 mmol/L (21-32); CHLORIDE 96 mmol/L (98-107); CREATININE 1.6 mg/dL (0.6-1.3); GLUCOSE 174 mg/dL (74-106); MAGNESIUM 2.2 mg/dL (1.8-2.4); PHOSPHOROUS 4.7 mg/dL (2.5-4.9); POTASSIUM 4.4 mmol/L (3.5-5.1); TOTAL PROTEIN, SERUM 6.8 g/dL (6.4-8.2); UREA NITROGEN, BLOOD 42 mg/dL (7-18)
--- NOTE | 2017-07-15 07:00 | NUR ---
RECEIVED PATIENT ON BED, NO ACUTE DISTRESS NOTED, NOTED WITH SOB UPON EXERTION, IV ACCESS ON THE LEFT HAND #22 NOTED, INTACT AND PATENT. BRP WITH ASSIST, WALKER AT BEDSIDE. ON FALL PRECAUTION, BED ALARM ON. LAST BLOOD SUGAR 157, WILL ADMINISTER 2 UNITS OF INSULIN BEFORE BREAKFAST. NO COMPLAINTS OF PAIN/DISCOMFORT. CALL LIGHT WITHIN REACH WILL CONTINUE TO MONITOR CLOSELY.
[2017-07-15] MEDS: INSULIN REGULAR, HUMAN 300 UNIT/3 ML VIAL SQ PRN ×4 (07:46→21:35)
[2017-07-15] MEDS: ERYTHROMYCIN ETHYLSUCC 200 MG/5 ML SUSPENSION 100ML PO SCH (08:21)
[2017-07-15] MEDS: CLOPIDOGREL 75 MG TABLET PO SCH (08:21)
[2017-07-15] MEDS: methylPREDNISolone SOD SUCC 125 MG/2 ML VIAL IV SCH ×2 (08:21→21:14)
[2017-07-15] MEDS: PANTOPRAZOLE SODIUM 40 MG TABLET.DR PO SCH (08:23)
[2017-07-15] MEDS: METOPROLOL SUCCINATE XL 25 MG TAB.SR.24H PO SCH (08:24)
[2017-07-15] MEDS: VALSARTAN 160 MG TABLET PO SCH (08:24)
[2017-07-15] MEDS: ISOSORBIDE MONONITRATE 30 MG TAB.SR.24H PO SCH (08:24)
[2017-07-15 11:14] VITALS: BP 123/51
[2017-07-15] MEDS ORDERED: AZITHROMYCIN IV 500 MG in IV DEXTROSE 5% 250 ML IV SCH (13:45)
[2017-07-15] MEDS: IPRATROPIUM BROMIDE 0.5 MG/2.5 ML NEBU NEB PRN (14:04)
[2017-07-15] MEDS: ALBUTEROL SULFATE 2.5 MG/3 ML NEBU NEB PRN (14:06)
[2017-07-15] MEDS: AZITHROMYCIN IV 500 MG in IV DEXTROSE 5% 250 ML IV SCH (14:56)
[2017-07-15 15:14] VITALS: BP 121/62
[2017-07-15] MEDS: MONTELUKAST SODIUM 10 MG TABLET PO SCH (17:03)
[2017-07-15 19:00] VITALS: BP 110/44
[2017-07-15] MEDS: ALBUTEROL SULFATE 2.5 MG/3 ML NEBU NEB SCH (19:18)
[2017-07-15] MEDS: QUETIAPINE FUMARATE 25 MG TABLET PO SCH (21:14)
[2017-07-15] MEDS: SIMVASTATIN 10 MG TABLET PO SCH (21:14)
[2017-07-15] MEDS: ACETAMINOPHEN/CODEINE 300-30 MG TABLET PO PRN (21:43)
--- NOTE | 2017-07-15 22:00 | NUR ---
Received patient on bed, alert and oriented. No SOB noted. Patient on printing engineer, Sinus rhythm. Assisted to the bathroom without difficulty in voiding. Routine PM medications given. patient complained of generalized pain. Pain medication (Tylenol #3) administered PO. Reassessed pain level after 30 minutes and verbalized relieved.Vital signs are stable. Safety precautions applied.
[2017-07-16] VITALS: BP 112/53
[2017-07-16 04:00] VITALS: BP 143/65
[2017-07-16] MEDS: PANTOPRAZOLE SODIUM 40 MG TABLET.DR PO SCH (06:02)
[2017-07-16] MEDS: hydrALAZINE HCL 50 MG TABLET PO SCH ×3 (06:02→22:57)
[2017-07-16] MEDS: CLONIDINE HCL 0.1 MG TABLET PO SCH ×3 (06:03→22:57)
[2017-07-16] MEDS: BLOOD SUGAR DIAGNOSTIC 1 EACH STRIP VI SCH ×4 (06:03→21:41)
[2017-07-16] MEDS: IPRATROPIUM BROMIDE 0.5 MG/2.5 ML NEBU NEB PRN ×2 (07:19→13:50)
[2017-07-16] MEDS: ALBUTEROL SULFATE 2.5 MG/3 ML NEBU NEB SCH ×3 (07:20→19:11)
--- NOTE | 2017-07-16 07:35 | NUR ---
Rec'd bedside shift report from [facility] nurse. Pt admitted for chest pain. Found with COPD exacerbation with underlying chronic bronchitis. On Azithromycin IV, no adverse side effects noted. IV site without complications noted. Rec'd pt sitting up in bed, awake. On 2L/min of O2 via n/c, no SOB noted. Denies dyspnea. All safety precautions observed. Call light within reach. Will monitor for change.
[2017-07-16 07:50] VITALS: BP 126/46
[2017-07-16] MEDS: INSULIN REGULAR, HUMAN 300 UNIT/3 ML VIAL SQ PRN ×4 (08:15→21:48)
[2017-07-16] MEDS: methylPREDNISolone SOD SUCC 125 MG/2 ML VIAL IV SCH ×2 (09:49→22:26)
[2017-07-16] MEDS: CLOPIDOGREL 75 MG TABLET PO SCH (09:49)
[2017-07-16 10:24] LABS: HEMATOCRIT 31.7 % (31.2-41.9); LYMPHOCYTES # (AUTO) 0.6 K/uL (20.0-40.0); LYMPHOCYTES % (AUTO) 4.2 % (20.5-51.5); MEAN CORPUSCULAR HEMOGLOBIN 30.4 uug (24.7-32.8); MEAN CORPUSCULAR HGB CONC 35 g/dL (32.3-35.6); MEAN CORPUSCULAR VOLUME 88.2 fL (75.5-95.3); MONOCYTES # (AUTO) 0.7 K/uL (2.0-10.0); MONOCYTES % (AUTO) 5.4 % (0.0-11.0); NEUTROPHILS # (AUTO) 11.8 K/uL (1.8-8.9); NEUTROPHILS % (AUTO) 90.4 % (38.5-71.5); PLATELET COUNT (AUTO) 299 K/uL (179-408); WHITE BLOOD COUNT (AUTO) 13.1 K/uL (3.8-11.8)
[2017-07-16 10:38] LABS: ALANINE AMINOTRANSFERASE 26 U/L (14-59); ALKALINE PHOSPHATASE 69 U/L (50-136); ASPARTATE AMINOTRANSFERASE 14 U/L (15-37); BILIRUBIN,TOTAL 0.2 mg/dL (0.2-1.0); CARBON DIOXIDE 23 mmol/L (21-32); CHLORIDE 95 mmol/L (98-107); CREATININE 1.5 mg/dL (0.6-1.3); GLUCOSE 272 mg/dL (74-106); MAGNESIUM 2.3 mg/dL (1.8-2.4); PHOSPHOROUS 4.3 mg/dL (2.5-4.9); POTASSIUM 4.4 mmol/L (3.5-5.1); TOTAL PROTEIN, SERUM 6.2 g/dL (6.4-8.2); UREA NITROGEN, BLOOD 49 mg/dL (7-18)
[2017-07-16 11:02] VITALS: BP 135/54
[2017-07-16] MEDS: VALSARTAN 160 MG TABLET PO SCH (12:22)
[2017-07-16] MEDS: ISOSORBIDE MONONITRATE 30 MG TAB.SR.24H PO SCH (12:23)
[2017-07-16] MEDS: METOPROLOL SUCCINATE XL 25 MG TAB.SR.24H PO SCH (12:23)
[2017-07-16 14:58] LABS: *BILIRUBIN,URIN NEGATIVE (NEGATIVE); *BLOOD, URINE NEGATIVE (NEGATIVE); *COLOR,URINE YELLOW (YELLOW); *KETONES,URINE NEGATIVE (NEGATIVE); *PROTEIN,URINE NEGATIVE (NEGATIVE); *UROBILINOGEN,URINE 0.2 E.U./dl (NORMAL); LEUKOCYTE ESTERASE ,URINE NEGATIVE (NEGATIVE); NITRITE, URINE NEGATIVE (NEGATIVE); PH,URINE 5.5 (5.0-8.0); UGLUCOSE TRACE (NEGATIVE)
[2017-07-16 14:59] LABS: *CLARITY,URINE SLIGHTLY HAZY (CLEAR)
[2017-07-16 15:07] LABS: *CREATININE,URINE 58.7 mg/dL (30-125); *URINE TOTAL PROTEIN RANDOM 10.3 mg/dL (<150/24HR)
[2017-07-16 15:08] VITALS: BP 147/66
[2017-07-16] MEDS: AZITHROMYCIN IV 500 MG in IV DEXTROSE 5% 250 ML IV SCH (15:09)
[2017-07-16 15:17] LABS: BACTERIA,URINE MANY /HPF (NONE SEEN); RBC,URINE 0-3 /HPF (0-3); SQUAMOUS EPITHELIAL CELL,UR FEW /HPF (NONE SEEN)
[2017-07-16 15:18] LABS: URIC ACID CRYSTALS,URINE MANY /HPF (NONE SEEN)
[2017-07-16] MEDS: MONTELUKAST SODIUM 10 MG TABLET PO SCH (17:58)
[2017-07-16 20:00] VITALS: BP 133/52
[2017-07-16] MEDS: QUETIAPINE FUMARATE 25 MG TABLET PO SCH (21:38)
[2017-07-16] MEDS: SIMVASTATIN 10 MG TABLET PO SCH (21:39)
[2017-07-17 04:00] VITALS: BP 160/58
[2017-07-17] MEDS: CLONIDINE HCL 0.1 MG TABLET PO SCH ×3 (05:48→21:09)
[2017-07-17] MEDS: hydrALAZINE HCL 50 MG TABLET PO SCH ×3 (05:49→21:08)
[2017-07-17 06:39] LABS: BASOPHILS % (AUTO) 0.1 % (0.0-2.0); HEMATOCRIT 33.3 % (31.2-41.9); HEMOGLOBIN 11.5 g/dL (10.9-14.3); LYMPHOCYTES # (AUTO) 0.5 K/uL (20.0-40.0); LYMPHOCYTES % (AUTO) 5.1 % (20.5-51.5); MEAN CORPUSCULAR HEMOGLOBIN 30.5 uug (24.7-32.8); MEAN CORPUSCULAR HGB CONC 35 g/dL (32.3-35.6); MEAN CORPUSCULAR VOLUME 88.5 fL (75.5-95.3); MONOCYTES # (AUTO) 0.3 K/uL (2.0-10.0); MONOCYTES % (AUTO) 3.1 % (0.0-11.0); NEUTROPHILS # (AUTO) 8.8 K/uL (1.8-8.9); NEUTROPHILS % (AUTO) 91.7 % (38.5-71.5); PLATELET COUNT (AUTO) 304 K/uL (179-408); RED BLOOD CELL COUNT(AUTO) 3.77 MIL/uL (3.63-4.92)
[2017-07-17 06:45] LABS: WHITE BLOOD COUNT (AUTO) 9.6 K/uL (3.8-11.8)
[2017-07-17] MEDS: ALBUTEROL SULFATE 2.5 MG/3 ML NEBU NEB SCH ×3 (06:47→19:47)
[2017-07-17] MEDS: BLOOD SUGAR DIAGNOSTIC 1 EACH STRIP VI SCH ×4 (07:25→20:52)
--- NOTE | 2017-07-17 07:30 | NUR ---
ON BED, AWAKE. . DENIES DISCOMFORT. MADE COMFORTABLE. ENC REST IN BETWEEN ACTIVITY. VERBALIZED UNDERSTANDING. SLEPT PRN AT NIGHT PER PATIENT
[2017-07-17] MEDS: INSULIN REGULAR, HUMAN 300 UNIT/3 ML VIAL SQ PRN ×4 (08:09→20:53)
[2017-07-17] MEDS: PANTOPRAZOLE SODIUM 40 MG TABLET.DR PO SCH (08:16)
[2017-07-17] MEDS: CLOPIDOGREL 75 MG TABLET PO SCH (08:16)
[2017-07-17] MEDS: methylPREDNISolone SOD SUCC 125 MG/2 ML VIAL IV SCH ×2 (08:17→20:49)
[2017-07-17] MEDS: VALSARTAN 160 MG TABLET PO SCH (08:17)
[2017-07-17] MEDS: METOPROLOL SUCCINATE XL 25 MG TAB.SR.24H PO SCH (08:28)
[2017-07-17] MEDS: ISOSORBIDE MONONITRATE 30 MG TAB.SR.24H PO SCH (08:28)
--- NOTE | 2017-07-17 08:30 | NUR ---
ENC TO REST IN BETWEEN ACTIVITY. ASSISTED WITH MEAL, ENC TO REST IN BETWEEN ACTIVITY, VERBALIZED UNDERSTANDING.
[2017-07-17 08:44] LABS: MAGNESIUM 2.4 mg/dL (1.8-2.4); PHOSPHOROUS 3.9 mg/dL (2.5-4.9)
--- NOTE | 2017-07-17 09:30 | NUR ---
ASSISTED TO BATHROOM REQUESTED. CONT TO ENC RESTING BETWEEN ACTIVITY DUE TO WHEEZING.
[2017-07-17 11:36] VITALS: BP 117/51
[2017-07-17 12:04] LABS: ALANINE AMINOTRANSFERASE 25 U/L (14-59); ALKALINE PHOSPHATASE 66 U/L (50-136); ASPARTATE AMINOTRANSFERASE 17 U/L (15-37); BILIRUBIN,TOTAL 0.2 mg/dL (0.2-1.0); CARBON DIOXIDE 26 mmol/L (21-32); CHLORIDE 96 mmol/L (98-107); CREATININE 1.2 mg/dL (0.6-1.3); GLUCOSE 177 mg/dL (74-106); POTASSIUM 5.3 mmol/L (3.5-5.1); TOTAL PROTEIN, SERUM 5.9 g/dL (6.4-8.2); UREA NITROGEN, BLOOD 43 mg/dL (7-18)
[2017-07-17] MEDS: IPRATROPIUM BROMIDE 0.5 MG/2.5 ML NEBU NEB PRN ×2 (13:45→19:47)
--- NOTE | 2017-07-17 14:30 | NUR ---
BP LOW.88/46, HR 90 PATIENT DENIES ANY SYMPTOM, DR VILLAREAL AWARE, MADE ORDER AND CARRIED OUT. PATIETN AND ON PHONE AWARE OF CHANGE, AGREED, SUPPORTIVE OF CARE.
[2017-07-17 15:36] VITALS: BP 122/58
[2017-07-17] MEDS: AZITHROMYCIN IV 500 MG in IV DEXTROSE 5% 250 ML IV SCH (15:42)
[2017-07-17] MEDS: MONTELUKAST SODIUM 10 MG TABLET PO SCH (17:45)
[2017-07-17 19:00] VITALS: BP 120/52
--- NOTE | 2017-07-17 19:20 | NUR ---
Receive pt lying in bed. AAOX4. Denies any pain or SOB at this time. O2 at 2lpm via nc in place. O2 sat at 98%. In no acute distress. IV site on RFA intact and patent. Safety measure initiated and call santana within reach.
[2017-07-17] MEDS: SIMVASTATIN 10 MG TABLET PO SCH (20:49)
[2017-07-17] MEDS: QUETIAPINE FUMARATE 25 MG TABLET PO SCH (20:49)
[2017-07-18 04:00] VITALS: BP 141/57
[2017-07-18] MEDS: hydrALAZINE HCL 50 MG TABLET PO SCH ×3 (05:07→22:18)
[2017-07-18] MEDS: CLONIDINE HCL 0.1 MG TABLET PO SCH ×3 (05:08→22:18)
--- NOTE | 2017-07-18 06:26 | NUR ---
AAOX4. Denies any pain or SOB. O2 at 2lpm via NC in place. O2 sat at 98%. In no acute distress. IV site on RFA intact and patent. Safety measure maintained and call santana within reach.
[2017-07-18 06:32] LABS: HEMATOCRIT 33.6 % (31.2-41.9); HEMOGLOBIN 11.7 g/dL (10.9-14.3); LYMPHOCYTES # (AUTO) 0.5 K/uL (20.0-40.0); LYMPHOCYTES % (AUTO) 6.8 % (20.5-51.5); MEAN CORPUSCULAR HEMOGLOBIN 30.9 uug (24.7-32.8); MEAN CORPUSCULAR HGB CONC 35 g/dL (32.3-35.6); MEAN CORPUSCULAR VOLUME 88.8 fL (75.5-95.3); MONOCYTES # (AUTO) 0.3 K/uL (2.0-10.0); MONOCYTES % (AUTO) 4.3 % (0.0-11.0); NEUTROPHILS # (AUTO) 6.4 K/uL (1.8-8.9); NEUTROPHILS % (AUTO) 88.9 % (38.5-71.5); PLATELET COUNT (AUTO) 311 K/uL (179-408); RED BLOOD CELL COUNT(AUTO) 3.78 MIL/uL (3.63-4.92); WHITE BLOOD COUNT (AUTO) 7.2 K/uL (3.8-11.8)
[2017-07-18] MEDS: BLOOD SUGAR DIAGNOSTIC 1 EACH STRIP VI SCH ×4 (06:33→20:17)
[2017-07-18 06:44] LABS: ALANINE AMINOTRANSFERASE 25 U/L (14-59); ALKALINE PHOSPHATASE 69 U/L (50-136); ASPARTATE AMINOTRANSFERASE 11 U/L (15-37); BILIRUBIN,TOTAL 0.3 mg/dL (0.2-1.0); CARBON DIOXIDE 30 mmol/L (21-32); CHLORIDE 96 mmol/L (98-107); CREATININE 1.3 mg/dL (0.6-1.3); GLUCOSE 175 mg/dL (74-106); MAGNESIUM 2.6 mg/dL (1.8-2.4); PHOSPHOROUS 4.5 mg/dL (2.5-4.9); TOTAL PROTEIN, SERUM 5.7 g/dL (6.4-8.2); UREA NITROGEN, BLOOD 51 mg/dL (7-18)
[2017-07-18 07:22] LABS: BAND % (MANUAL) 2 % (0-10); LYMPHOCYTES % (MANUAL) 8 % (20-40); METAMYELOCYTES % 1 % (0-1); MONOCYTES % (MANUAL) 6 % (2-10); NEUTROPHILS % (MANUAL) 83 % (42-75)
[2017-07-18] MEDS: INSULIN REGULAR, HUMAN 300 UNIT/3 ML VIAL SQ PRN ×3 (07:40→20:24)
--- NOTE | 2017-07-18 07:40 | NUR ---
RECEIVED PATIENT IN BED AWAKE ALERT AND ORIENTED UNDERSTANDS SOME MALTESE BUT HER PRIMARY LANGUAGE IS GREEK DENIES PAIN OR DISCOMFORTS AT THIS TIME.ON O2 AT 2L/M BY NASAL CANULA WITH NO SHORTNESS OF BREATH AT THIS TIME DUE INSULIN PER SLIDING SCALE COVERAGE GIVEN AND TOLERATED WELL WITH NO S/S OF HYPOGLYCEMIC REACTIONS.MADE COMFORTABLE.
[2017-07-18] MEDS: IPRATROPIUM BROMIDE 0.5 MG/2.5 ML NEBU NEB PRN ×3 (07:47→19:13)
[2017-07-18] MEDS: ALBUTEROL SULFATE 2.5 MG/3 ML NEBU NEB SCH ×3 (07:47→19:13)
[2017-07-18] MEDS: PANTOPRAZOLE SODIUM 40 MG TABLET.DR PO SCH (08:53)
[2017-07-18] MEDS: methylPREDNISolone SOD SUCC 125 MG/2 ML VIAL IV SCH ×2 (08:53→20:18)
[2017-07-18] MEDS: METOPROLOL SUCCINATE XL 25 MG TAB.SR.24H PO SCH (08:54)
[2017-07-18] MEDS: ISOSORBIDE MONONITRATE 30 MG TAB.SR.24H PO SCH (08:55)
[2017-07-18] MEDS: CLOPIDOGREL 75 MG TABLET PO SCH (08:56)
--- NOTE | 2017-07-18 10:30 | NUR ---
DR SULLIVAN [facility] HERE TO SEE PATIENT WITH NO NEW ORDERS AT THIS TIME
[2017-07-18 11:33] VITALS: BP 121/61
--- NOTE | 2017-07-18 12:03 | NUR ---
PATIENT SEEN AND EXAMINED BY DR LOBO WITH NEW ORDERS AND NOTED MD AWARE THAT SODIUM IS 127 STATED ITS NORMAL FOR THE PATIENT DUE TO HER MEDICAL CONDITION.
[2017-07-18] MEDS: AZITHROMYCIN 250 MG TABLET PO SCH (14:04)
[2017-07-18 16:08] VITALS: BP 124/58
[2017-07-18] MEDS: MONTELUKAST SODIUM 10 MG TABLET PO SCH (17:41)
--- NOTE | 2017-07-18 18:00 | NUR ---
RESTING WELL WITH NO DISTRESS AT THIS TIME WILL CONTINUE TO OBSERVE.
[2017-07-18 19:00] VITALS: BP 115/49
--- NOTE | 2017-07-18 19:30 | NUR ---
Received patient laying in bed. HOB elevated. No acute distress noted. A/O x 3 but mainly Maldivian speaking.Lung sounds = wheezing. Patient is on O2 1L NC. Patient is able to ambulate with minimal assists and with a walker. Bed is in low and locked position. Room is kept clutter free. Safety initiated. Call light within reach. Will continue to monitor.
[2017-07-18] MEDS: SIMVASTATIN 10 MG TABLET PO SCH (20:17)
[2017-07-18] MEDS: QUETIAPINE FUMARATE 25 MG TABLET PO SCH (20:17)
[2017-07-19 04:00] VITALS: BP 138/58
[2017-07-19] MEDS: CLONIDINE HCL 0.1 MG TABLET PO SCH ×2 (05:24→14:42)
[2017-07-19] MEDS: hydrALAZINE HCL 50 MG TABLET PO SCH ×2 (05:24→14:42)
--- NOTE | 2017-07-19 05:45 | NUR ---
No changes t/o shift. Slept well, a total of 9 hours. HOB elevated. Remains A/O x 3 but mainly Persian speaking. Lung sounds = wheezing. Patient is on O2 1L NC. Patient is able to ambulate with minimal assists and with a walker. Urinating well. Bed is in low and locked position. Room is kept clutter free. Safety initiated. Call light within reach. Vital signs stable. Safety and comfort measures maintained t/o shift. All meds given as ordered. All needs met.
[2017-07-19] MEDS: BLOOD SUGAR DIAGNOSTIC 1 EACH STRIP VI SCH ×4 (06:43→20:11)
[2017-07-19 06:49] LABS: BASOPHILS % (AUTO) 0.5 % (0.0-2.0); EOSINOPHILS % (AUTO) 0.2 % (0.0-7.0); HEMATOCRIT 35.4 % (31.2-41.9); HEMOGLOBIN 12.1 g/dL (10.9-14.3); LYMPHOCYTES # (AUTO) 0.5 K/uL (20.0-40.0); LYMPHOCYTES % (AUTO) 5.9 % (20.5-51.5); MEAN CORPUSCULAR HEMOGLOBIN 30.4 uug (24.7-32.8); MEAN CORPUSCULAR HGB CONC 34 g/dL (32.3-35.6); MEAN CORPUSCULAR VOLUME 88.9 fL (75.5-95.3); MONOCYTES # (AUTO) 0.4 K/uL (2.0-10.0); MONOCYTES % (AUTO) 4.7 % (0.0-11.0); NEUTROPHILS # (AUTO) 7.7 K/uL (1.8-8.9); NEUTROPHILS % (AUTO) 88.7 % (38.5-71.5); PLATELET COUNT (AUTO) 247 K/uL (179-408); RED BLOOD CELL COUNT(AUTO) 3.98 MIL/uL (3.63-4.92); WHITE BLOOD COUNT (AUTO) 8.7 K/uL (3.8-11.8)
[2017-07-19] MEDS: ALBUTEROL SULFATE 2.5 MG/3 ML NEBU NEB SCH ×3 (07:20→19:07)
[2017-07-19] MEDS: IPRATROPIUM BROMIDE 0.5 MG/2.5 ML NEBU NEB PRN ×3 (07:20→19:07)
[2017-07-19 07:23] LABS: ALANINE AMINOTRANSFERASE 24 U/L (14-59); ALKALINE PHOSPHATASE 66 U/L (50-136); ASPARTATE AMINOTRANSFERASE 12 U/L (15-37); BILIRUBIN,TOTAL 0.4 mg/dL (0.2-1.0); CARBON DIOXIDE 25 mmol/L (21-32); CHLORIDE 95 mmol/L (98-107); CREATININE 1.2 mg/dL (0.6-1.3); GLUCOSE 180 mg/dL (74-106); MAGNESIUM 2.5 mg/dL (1.8-2.4); PHOSPHOROUS 4.7 mg/dL (2.5-4.9); POTASSIUM 5.2 mmol/L (3.5-5.1); TOTAL PROTEIN, SERUM 5.5 g/dL (6.4-8.2); UREA NITROGEN, BLOOD 45 mg/dL (7-18)
--- NOTE | 2017-07-19 07:45 | NUR ---
REMAIN ON O2 TO MAINTAIN SATURATION AT OVER 90%WITH NO SHORTNESS OF BREATH AT THIS TIME.DENIES PAIN OR DISCOMFORTS AND WILL CONTINUE TO OBSERVE PATIENT.
[2017-07-19] MEDS: INSULIN REGULAR, HUMAN 300 UNIT/3 ML VIAL SQ PRN ×4 (07:52→20:15)
[2017-07-19] MEDS: PANTOPRAZOLE SODIUM 40 MG TABLET.DR PO SCH (08:44)
[2017-07-19] MEDS: methylPREDNISolone SOD SUCC 125 MG/2 ML VIAL IV SCH ×2 (08:44→20:11)
[2017-07-19] MEDS: CLOPIDOGREL 75 MG TABLET PO SCH (08:44)
[2017-07-19] MEDS: METOPROLOL SUCCINATE XL 25 MG TAB.SR.24H PO SCH (08:46)
[2017-07-19] MEDS: ISOSORBIDE MONONITRATE 30 MG TAB.SR.24H PO SCH (08:46)
[2017-07-19] MEDS ORDERED: VALSARTAN 160 MG TABLET PO SCH (09:00)
--- NOTE | 2017-07-19 09:06 | NUR ---
PATIENT SEEN AND EXAMINED BY DR PENNY WITH DISCHARGE PLANNING AT THIS TIME BUT NO ORDERS RECEIVED YET.PATIENT AWARE.
[2017-07-19 09:08] LABS: A/G RATIO 1.4 (0.7-1.7); ALBUMIN 3.3 g/dL (2.9-4.4); ALPHA-1-GLOBULIN 0.2 g/dL (0.0-0.4); ALPHA-2-GLOBULIN 0.7 g/dL (0.4-1.0); BETA GLOBULIN 0.9 g/dL (0.7-1.3); GAMMA GLOBULIN 0.7 g/dL (0.4-1.8); GLOBULIN, TOTAL 2.4 g/dL (2.2-3.9); M-SPIKE Not Observed g/dL (Not Observed)
[2017-07-19 11:04] VITALS: BP 117/48
--- NOTE | 2017-07-19 12:59 | NUR ---
DR KOHLER HERE TO SEE PATIENT WITH NEW ORDERS AND NOTED
[2017-07-19] MEDS: AZITHROMYCIN 250 MG TABLET PO SCH (14:42)
--- NOTE | 2017-07-19 14:50 | NUR ---
INFORMATICS SPEC STATED THAT [facility] IS ACCEPTING PATIENT TODAY AND THAT HER DAUGHTER WHITNEY IS AWARE AND AGREES DR PENNY HAS BEEN NOTIFIED AWAITING FOR DISCHARGE ORDERS FROM HIM.
[2017-07-19 15:22] VITALS: BP 149/61
[2017-07-19] MEDS ORDERED: methylPREDNISolone SOD SUCC IV (15:36)
[2017-07-19] MEDS ORDERED: AZIT250T13 PO (15:36)
[2017-07-19] MEDS ORDERED: VALS160T2 PO (15:36)
--- NOTE | 2017-07-19 15:38 | NUR ---
ORDER TO DISCHARGE PATIENT TO [facility] RECEIVED AND NOTED CALLED [facility] TO GIVE REPORT SPOKE WITH RODNEY STATED THAT MELYSSA RN WILL BE TAKING REPORT SHE IS BUSY AT THE MOMENT AND WILL CALL ME BACK.
--- NOTE | 2017-07-19 16:23 | NUR ---
MELYSSA CONNER RETURNED CALL AND REPORT GIVEN TO HER FOR CONTINUING [facility] AWARE TO TRANSPORT PATIENT TO [facility] ORDERED.
[2017-07-19] MEDS: MONTELUKAST SODIUM 10 MG TABLET PO SCH (17:21)
--- NOTE | 2017-07-19 18:00 | NUR ---
PATIENT IS RESTING WAITING TO BE PICKED UP
--- NOTE | 2017-07-19 19:30 | NUR ---
Received patient laying in bed. HOB elevated. No acute distress noted. A/O x 3 but mainly Irish speaking.Lung sounds = wheezing. Patient is on O2 1L NC. Patient is able to ambulate with minimal assists and with a walker. Bed is in low and locked position. Room is kept clutter free. Patient is being discharge today to [facility] at [facility]. Per morning RN, IV will stay as she will continue to receive IV Abx at [facility]. Safety initiated. Call light within reach. Will continue to monitor.
[2017-07-19 20:00] VITALS: BP 132/58
[2017-07-19] MEDS: QUETIAPINE FUMARATE 25 MG TABLET PO SCH (20:11)
[2017-07-19] MEDS: SIMVASTATIN 10 MG TABLET PO SCH (20:11)
--- NOTE | 2017-07-19 20:45 | NUR ---
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 Vital signs stable. Patient is in no acute distress and in stable condition.
== END 2017-07-19 21:12 | DRG 190 ==
LOC: ER 14:39 → TELE 17:51 → MED 07-16 15:10
PROVIDERS: ADMIT Internal Medicine; ATTEND Internal Medicine
DX: J44.1 Chronic obstructive pulmonary disease with (acute) exacerbation (principal); J69.0 Pneumonitis due to inhalation of food and vomit; N17.0 Acute kidney failure with tubular necrosis; E27.5 Adrenomedullary hyperfunction; E87.1 Hypo-osmolality and hyponatremia; J45.901 Unspecified asthma with (acute) exacerbation; I50.32 Chronic diastolic (congestive) heart failure; J44.0 Chronic obstructive pulmonary disease with (acute) lower respiratory infection; J20.9 Acute bronchitis, unspecified; I11.0 Hypertensive heart disease with heart failure; E11.43 Type 2 diabetes mellitus with diabetic autonomic (poly)neuropathy; D64.9 Anemia, unspecified; K21.0 Gastro-esophageal reflux disease with esophagitis; E11.51 Type 2 diabetes mellitus with diabetic peripheral angiopathy without gangrene; M19.90 Unspecified osteoarthritis, unspecified site; E78.5 Hyperlipidemia, unspecified; F03.90 Unspecified dementia, unspecified severity, without behavioral disturbance, psychotic disturbance, mood disturbance, and anxiety; R42 Dizziness and giddiness; K29.50 Unspecified chronic gastritis without bleeding; K44.9 Diaphragmatic hernia without obstruction or gangrene; R09.02 Hypoxemia; Z88.0 Allergy status to penicillin; Z79.82 Long term (current) use of aspirin; Z79.899 Other long term (current) drug therapy; Z79.2 Long term (current) use of antibiotics; Z79.02 Long term (current) use of antithrombotics/antiplatelets
CPT/HCPCS: 36415; 70030-TC; 71045; 83735; 83970; 84100; 84155; 84156; 84165; 84300; 85025; 92523; 92526; 92610; 93005; 94640; 94664; A4663; J0456; J1815; J2930; J3590; J7040; J7060; Q0144

== ENCOUNTER 2017-11-01 14:44 | Inpatient (IN) | payer MEDICARE, MEDICAID ==
[~2017-11-01] VITALS: Ht 152.4 cm; Wt 64.4 kg
[~2017-11-01 14:44] MED LIST changes: -ACET-2154 PO; -ASPI-612 PO; +AZIT250T13 PO; -CEFE1VIA7 IV; +CLON0.1T PO; -CLON0.3P TD; +CLON0.3T PO; -ERYT200S16 PO; -FLUT1DIS28 IH; +HYDR-4077 PO; +ISOS30TA6 PO; -LACT1CAP59 PO; -MECL-118 PO; -METR500P3 IV; -ONDA4AMP IJ; -ONDA4TAB5 PO; -SPIR50TA PO; -SUCR1ORA PO; +TRAM50TA2 PO; -TRAZ150T75 PO; -Z-GUARD; +methylPREDNISolone SOD SUCC IV
[2017-11-01] MEDS ORDERED: ALBUTEROL SULFATE 2.5 MG/ 0.5 ML NEBU ONE ×2 (15:15→17:22)
[2017-11-01] MEDS ORDERED: IPRATROPIUM BROMIDE 0.5 MG/2.5 ML NEBU ONE ×2 (15:15→17:22)
[2017-11-01] MEDS ORDERED: methylPREDNISolone SOD SUCC 125 MG/2 ML VIAL IV ONE (15:15)
[2017-11-01] MEDS ORDERED: IPRATROPIUM BROMIDE 0.5 MG/2.5 ML NEBU NEB ONE ×2 (15:15→17:30)
[2017-11-01] MEDS ORDERED: ALBUTEROL SULFATE 2.5 MG/3 ML NEBU NEB ONE ×2 (15:15→17:30)
[2017-11-01] MEDS ORDERED: FLUT1DIS28 INH (15:19)
[2017-11-01] MEDS ORDERED: CICL15CR12 TP (15:20)
[2017-11-01] MEDS ORDERED: ATOR10TA PO (15:20)
[2017-11-01] MEDS ORDERED: LACT10SO PO (15:21)
[2017-11-01] MEDS ORDERED: SPIR50TA5 PO (15:22)
[2017-11-01] MEDS ORDERED: NITR0.4T SL (15:22)
[2017-11-01] MEDS ORDERED: MECL-102 PO (15:22)
[2017-11-01] MEDS ORDERED: SUCR1TAB PO (15:23)
[2017-11-01] MEDS ORDERED: DICL100G16 TP (15:23)
[2017-11-01] MEDS ORDERED: methylPREDNISolone SOD SUCC 125 MG/2 ML VIAL ONE (15:24)
[2017-11-01] MEDS ORDERED: VENL75TA4 PO (15:24)
[2017-11-01] MEDS ORDERED: LOPE1LIQ56 PO (15:24)
[2017-11-01] MEDS ORDERED: AMOX500C2 PO (15:25)
[2017-11-01] MEDS ORDERED: LOSA100T3 PO (15:25)
[2017-11-01] MEDS ORDERED: IPRA4AER IH (15:26)
[2017-11-01 15:32] LABS: BASOPHILS % (AUTO) 0.3 % (0.0-2.0); HEMATOCRIT 31.9 % (31.2-41.9); HEMOGLOBIN 11.2 g/dL (10.9-14.3); LYMPHOCYTES # (AUTO) 0.4 K/uL (20.0-40.0); LYMPHOCYTES % (AUTO) 6.1 % (20.5-51.5); MEAN CORPUSCULAR HEMOGLOBIN 30.9 uug (24.7-32.8); MEAN CORPUSCULAR HGB CONC 35 g/dL (32.3-35.6); MEAN CORPUSCULAR VOLUME 88.5 fL (75.5-95.3); MONOCYTES # (AUTO) 0.4 K/uL (2.0-10.0); MONOCYTES % (AUTO) 6.1 % (0.0-11.0); NEUTROPHILS # (AUTO) 5.7 K/uL (1.8-8.9); NEUTROPHILS % (AUTO) 87.5 % (38.5-71.5); PLATELET COUNT (AUTO) 404 K/uL (179-408); RED BLOOD CELL COUNT(AUTO) 3.61 MIL/uL (3.63-4.92); WHITE BLOOD COUNT (AUTO) 6.5 K/uL (3.8-11.8)
[2017-11-01 16:23] LABS: CARBON DIOXIDE 26 mmol/L (21-32); CHLORIDE 94 mmol/L (98-107); CREATININE 1.1 mg/dL (0.6-1.3); GLUCOSE 182 mg/dL (74-106); POTASSIUM 5.6 mmol/L (3.5-5.1); UREA NITROGEN, BLOOD 18 mg/dL (7-18)
[2017-11-01 16:34] LABS: ALANINE AMINOTRANSFERASE 27 U/L (14-59); ALKALINE PHOSPHATASE 69 U/L (50-136); ASPARTATE AMINOTRANSFERASE 17 U/L (15-37); BILIRUBIN,DIRECT 0.1 mg/dL (0.0-0.2); BILIRUBIN,TOTAL 0.4 mg/dL (0.2-1.0); TOTAL PROTEIN, SERUM 6.9 g/dL (6.4-8.2)
--- NOTE | 2017-11-01 17:35 | NUR ---
pt transfered to floor instable condition
--- NOTE | 2017-11-01 17:40 | NUR ---
RECEIVED PATIENT FROM ER VIA GURNEY. AAOX3 IRISH SPEAKING. ADMITTED TO 228 TELEMETRY. C/O SOB ON O2 @2LPM. CALLED AND PAGED DR SAUMYA LOBO FOR ADMISSION ORDERS, MD RETURNED CALL WILL PUT ORDERS IN. IV ACCESS ON ELIF #20 INTACT AND PATENT. NURSING ADMISSION ASSESSMENTS TO BE DONE. COMFORT MEASURES PROVIDED, ORIENTED TO UNIT. CALL LIGHT WITHIN REACH. WILL CONTINUE TO MONITOR CLOSELY.
[2017-11-01 17:45] VITALS: BP 123/49
[2017-11-01] MEDS ORDERED: ONDANSETRON 4 MG/2 ML VIAL IV PRN (19:15)
[2017-11-01] MEDS ORDERED: NITROGLYCERIN 0.4 MG/TAB BOTTLE SL SCH (19:15)
[2017-11-01] MEDS ORDERED: LEVOFLOXACIN 500 MG/D5W 500 MG in PREMIXED 1 EACH IV SCH (19:15)
[2017-11-01] MEDS ORDERED: MAGNESIUM HYDROXIDE 30 ML LIQUID UDC PO PRN (19:15)
[2017-11-01] MEDS ORDERED: Z GUARD REMEDY PASTE 57 GM TUBE TOP PRN (19:15)
--- NOTE | 2017-11-01 20:00 | NUR ---
Pt observed to be sitting up in bed AAO x 3, with 2L NC in place. No SOB, no respiratory distress noted. Tele noted to be sinus tachy with hr at 120. No s/s of acute distress noted at this time. All needs attended to. Safe environment implemented. Will continue to monitor closely.
[2017-11-01 20:13] VITALS: BP 115/53
[2017-11-01] MEDS: FLUTICASONE/VILANTEROL 1 EACH BLST.W.DEV INH SCH (21:09)
[2017-11-01] MEDS: LEVOFLOXACIN 750MG/D5W 750 MG in PREMIXED 1 EACH IV SCH (21:10)
[2017-11-01] MEDS: methylPREDNISolone SOD SUCC 40 MG/ML VIAL IV SCH (21:10)
[2017-11-02 00:12] VITALS: BP 127/63
[2017-11-02] MEDS: ZOLPIDEM 5 MG TABLET PO PRN (00:28)
[2017-11-02] MEDS: ACETAMINOPHEN 325 MG TABLET PO PRN ×2 (00:29→12:16)
[2017-11-02 05:27] VITALS: BP 121/65
--- NOTE | 2017-11-02 06:25 | NUR ---
Intermittent wheezing noted throughout the shift, pt on 2L via NC NO SOB noted. aspiration precautions initiated. tylenol 650 PO PRN administered due to temperature of 99.6 tele noted to be sinus tachy with hr at 119. all needs attended to. safe environment implemented call light within reach
[2017-11-02 06:27] LABS: BASOPHILS % (AUTO) 0.2 % (0.0-2.0); EOSINOPHILS % (AUTO) 0.1 % (0.0-7.0); HEMATOCRIT 31.7 % (31.2-41.9); LYMPHOCYTES # (AUTO) 0.8 K/uL (20.0-40.0); LYMPHOCYTES % (AUTO) 8.6 % (20.5-51.5); MEAN CORPUSCULAR HEMOGLOBIN 30.8 uug (24.7-32.8); MEAN CORPUSCULAR HGB CONC 35 g/dL (32.3-35.6); MEAN CORPUSCULAR VOLUME 88.9 fL (75.5-95.3); MONOCYTES # (AUTO) 0.1 K/uL (2.0-10.0); MONOCYTES % (AUTO) 0.7 % (0.0-11.0); NEUTROPHILS # (AUTO) 8.7 K/uL (1.8-8.9); NEUTROPHILS % (AUTO) 90.4 % (38.5-71.5); PLATELET COUNT (AUTO) 346 K/uL (179-408); RED BLOOD CELL COUNT(AUTO) 3.57 MIL/uL (3.63-4.92); WHITE BLOOD COUNT (AUTO) 9.6 K/uL (3.8-11.8)
[2017-11-02 06:53] LABS: CARBON DIOXIDE 23 mmol/L (21-32); CHLORIDE 94 mmol/L (98-107); CHOLESTEROL 173 mg/dL (<200); CREATININE 1.1 mg/dL (0.6-1.3); GLUCOSE 148 mg/dL (74-106); HDL CHOLESTEROL 87 mg/dL (40-60); MAGNESIUM 1.6 mg/dL (1.8-2.4); PHOSPHOROUS 3.6 mg/dL (2.5-4.9); POTASSIUM 5.6 mmol/L (3.5-5.1); TRIGLYCERIDES 20 MG/DL (30-150); UREA NITROGEN, BLOOD 22 mg/dL (7-18)
--- NOTE | 2017-11-02 08:20 | NUR ---
NOTED PATIENT WHEEZING
[2017-11-02] MEDS ORDERED: SPIRONOLACTONE 50 MG TABLET PO SCH (09:00)
[2017-11-02] MEDS ORDERED: CICLOPIROX 0.77% CREAM 30 GM TUBE TP SCH (09:00)
[2017-11-02] MEDS ORDERED: FLUTICASONE/SALMETEROL 250/50 INHALER INH SCH (09:00)
[2017-11-02] MEDS: FLUTICASONE/VILANTEROL 1 EACH BLST.W.DEV INH SCH (09:18)
[2017-11-02] MEDS: MECLIZINE HCL 25 MG TABLET PO SCH ×3 (09:18→16:35)
[2017-11-02] MEDS: methylPREDNISolone SOD SUCC 40 MG/ML VIAL IV SCH ×3 (09:18→16:35)
[2017-11-02] MEDS: SUCRALFATE 1 G TABLET PO SCH ×3 (09:18→16:34)
[2017-11-02] MEDS: PANTOPRAZOLE SODIUM 40 MG TABLET.DR PO SCH (09:18)
[2017-11-02] MEDS: CLOPIDOGREL 75 MG TABLET PO SCH (09:18)
[2017-11-02] MEDS: ATORVASTATIN 10 MG TABLET PO SCH (09:18)
[2017-11-02] MEDS: METOPROLOL SUCCINATE XL 25 MG TAB.SR.24H PO SCH (09:19)
[2017-11-02] MEDS: hydrALAZINE HCL 50 MG TABLET PO SCH ×3 (09:19→16:37)
[2017-11-02] MEDS: VENLAFAXINE 75 MG TABLET PO SCH (09:19)
[2017-11-02] MEDS: LEVALBUTEROL HCL 1.25 MG/0.5 ML NEB NEB SCH ×3 (09:31→19:36)
--- NOTE | 2017-11-02 09:35 | NUR ---
PAGED DOCTOR SHTORCH REGARDING ABNORMAL LABS, WHEEZING WORSENING WITH EXCERTION OF DAILY ACTIVITIES, AND PATIENT IS ON STEROIDS WITH HISTORY OF DIABETES THERE IS NO BLOOD SUGAR CHECKS ORDERED. SHTORCH WILL CALL DOCTOR KOHLER FOR CONSULT.
[2017-11-02] MEDS ORDERED: FUROSEMIDE 40 MG/4 ML VIAL IV ONE (09:45)
[2017-11-02] MEDS ORDERED: DEXTROSE 50% 50 ML DISP.SYRIN IV PRN (10:00)
[2017-11-02 10:35] LABS: ABG BASE EXCESS -3.7 mmol/L; ABG HCO3 21.2 mmol/L; ABG PCO2 37.7 mmHg (35.0-45.0); ABG PH 7.368 (7.350-7.450); ABG PO2 89.6 mmHg (75.0-100.0); ABG SITE RIGHT RADIAL; ABG TOTAL HEMOGLOBIN 11.3 G/dL (12.0-16.0); COHb 0.6 % (0.5-1.5); MetHb 0.5 % (0.0-1.5); O2Hb 96.3 % (94.0-97.0); VENT MODE Nasal Cannula
--- NOTE | 2017-11-02 11:24 | NUR ---
UNABLE TO GET PATIENT OOB TO USE BATHROOM DUE TO SOB ON EXCERTION AND + WHEEZING. PLACED PATIENT ON BEDPAN. NO CRITICAL VALUES WITH ABG
[2017-11-02 11:42] VITALS: BP 109/62
[2017-11-02] MEDS: BLOOD SUGAR DIAGNOSTIC 1 EACH STRIP VI SCH ×3 (12:14→20:38)
[2017-11-02] MEDS: INSULIN REGULAR, HUMAN 300 UNIT/3 ML VIAL SQ PRN ×2 (12:34→16:40)
[2017-11-02] MEDS: MAGNESIUM SULFATE/D5W 100 ML IV SCH ×2 (15:24→16:38)
[2017-11-02 15:31] VITALS: BP 128/53
[2017-11-02] MEDS: MONTELUKAST SODIUM 10 MG TABLET PO SCH (16:34)
--- NOTE | 2017-11-02 19:20 | NUR ---
Observed pt to be receiving breathing tx at this time. No s/s of acute distress noted at this time. Tele monitor sinus tachy with hr at 108. Safe environment implemented. Call light within reach.
[2017-11-02] MEDS: INSULIN REGULAR, HUMAN 300 UNITS/3 ML VIAL SQ PRN (20:40)
[2017-11-02 20:47] VITALS: BP 107/56
[2017-11-03 00:46] VITALS: BP 120/50
[2017-11-03] MEDS: LEVALBUTEROL HCL 1.25 MG/0.5 ML NEB NEB SCH ×2 (01:19→07:36)
[2017-11-03 04:00] VITALS: BP 137/62
[2017-11-03 06:21] LABS: BASOPHILS % (AUTO) 0.1 % (0.0-2.0); HEMATOCRIT 29.6 % (31.2-41.9); HEMOGLOBIN 10.1 g/dL (10.9-14.3); LYMPHOCYTES # (AUTO) 0.7 K/uL (20.0-40.0); MEAN CORPUSCULAR HEMOGLOBIN 30.3 uug (24.7-32.8); MEAN CORPUSCULAR HGB CONC 34 g/dL (32.3-35.6); MEAN CORPUSCULAR VOLUME 88.2 fL (75.5-95.3); MONOCYTES # (AUTO) 0.9 K/uL (2.0-10.0); MONOCYTES % (AUTO) 6.4 % (0.0-11.0); NEUTROPHILS # (AUTO) 11.8 K/uL (1.8-8.9); NEUTROPHILS % (AUTO) 88.5 % (38.5-71.5); PLATELET COUNT (AUTO) 380 K/uL (179-408); RED BLOOD CELL COUNT(AUTO) 3.35 MIL/uL (3.63-4.92); WHITE BLOOD COUNT (AUTO) 13.4 K/uL (3.8-11.8)
[2017-11-03] MEDS: BLOOD SUGAR DIAGNOSTIC 1 EACH STRIP VI SCH ×4 (06:33→20:49)
--- NOTE | 2017-11-03 06:41 | NUR ---
Stable condition at this time. No s/s of acute distress noted at this time. All needs attended to.
[2017-11-03 06:43] LABS: ALANINE AMINOTRANSFERASE 22 U/L (14-59); ALKALINE PHOSPHATASE 61 U/L (50-136); ASPARTATE AMINOTRANSFERASE 17 U/L (15-37); BILIRUBIN,TOTAL 0.3 mg/dL (0.2-1.0); CARBON DIOXIDE 27 mmol/L (21-32); CHLORIDE 94 mmol/L (98-107); CREATININE 1.3 mg/dL (0.6-1.3); GLUCOSE 142 mg/dL (74-106); MAGNESIUM 2.3 mg/dL (1.8-2.4); PHOSPHOROUS 4.6 mg/dL (2.5-4.9); POTASSIUM 4.4 mmol/L (3.5-5.1); TOTAL PROTEIN, SERUM 6.4 g/dL (6.4-8.2); UREA NITROGEN, BLOOD 40 mg/dL (7-18)
[2017-11-03 08:00] VITALS: BP 129/57
[2017-11-03] MEDS: MECLIZINE HCL 25 MG TABLET PO SCH ×3 (08:21→16:42)
[2017-11-03] MEDS: CLOPIDOGREL 75 MG TABLET PO SCH (08:22)
[2017-11-03] MEDS: ATORVASTATIN 10 MG TABLET PO SCH (08:22)
[2017-11-03] MEDS: VENLAFAXINE 75 MG TABLET PO SCH (08:22)
[2017-11-03] MEDS: METOPROLOL SUCCINATE XL 25 MG TAB.SR.24H PO SCH (08:22)
[2017-11-03] MEDS: SUCRALFATE 1 G TABLET PO SCH ×3 (08:22→16:42)
[2017-11-03] MEDS: PANTOPRAZOLE SODIUM 40 MG TABLET.DR PO SCH (08:22)
[2017-11-03] MEDS: methylPREDNISolone SOD SUCC 40 MG/ML VIAL IV SCH ×3 (08:23→20:42)
[2017-11-03] MEDS: hydrALAZINE HCL 50 MG TABLET PO SCH ×3 (08:23→16:45)
[2017-11-03] MEDS: FLUTICASONE/VILANTEROL 1 EACH BLST.W.DEV INH SCH (08:25)
[2017-11-03] MEDS ORDERED: VANCOMYCIN IV 1 G in PREMIXED 0 EACH IV ONE (11:00)
[2017-11-03 12:00] VITALS: BP 118/44
[2017-11-03] MEDS: INSULIN REGULAR, HUMAN 300 UNIT/3 ML VIAL SQ PRN ×2 (12:47→16:48)
[2017-11-03] MEDS: ALBUTEROL SULFATE 1.25 MG/3 ML NEBU NEB SCH ×2 (13:14→19:14)
--- NOTE | 2017-11-03 13:36 | NUR ---
Clinical pharmacy note-Vancomycin dosing per pharmacy Subjective: To start Vancomycin dosing on this 82 yo female patient for pna Objective: BUN 40 Scr 1.3 WBC 13.4 Temp 98.7 ht 152.4 cm wt 63.5 kg Assessment/Plan: Due to elevated srcr & advanced age, Will dose by level. Will give vanco 1gm IVPB x1 today at 1100. Plan to check vanoc random level tomorrow with am labs. Will review the level in am & re-dose if appropriate. Will monitor daily.
[2017-11-03 16:14] VITALS: BP 111/42
[2017-11-03] MEDS: MONTELUKAST SODIUM 10 MG TABLET PO SCH (17:07)
[2017-11-03] MEDS: HYDROCODONE/APAP 5-325MG TABLET PO PRN (18:45)
--- NOTE | 2017-11-03 19:20 | NUR ---
RECEIVED PT AWAKE, ALERT,AND ORIENTEDX3. PT SHOWS NO SIGNS OF DISTRESS. IV INTACT AND PATENT. SAFETY AND COMFORT PROVIDED. WILL CONTINUE TO MONITOR.
[2017-11-03 20:14] VITALS: BP 116/53
[2017-11-03] MEDS: LEVOFLOXACIN 750MG/D5W 750 MG in PREMIXED 1 EACH IV SCH (20:42)
[2017-11-03] MEDS: INSULIN REGULAR, HUMAN 300 UNITS/3 ML VIAL SQ PRN (20:51)
[2017-11-04] MEDS: ALBUTEROL SULFATE 1.25 MG/3 ML NEBU NEB SCH ×4 (01:00→19:04)
[2017-11-04] MEDS: ZOLPIDEM 5 MG TABLET PO PRN ×2 (02:17→22:19)
[2017-11-04 04:58] VITALS: BP 125/56
--- NOTE | 2017-11-04 06:32 | NUR ---
PT SLEPT THROUGHOUT THE SHIFT. PRESCRIBED MEDICATION GIVEN AND PT TOLERATED IT WELL. PT GIVEN PRUNE JUICE. PT CAN'T COUGH OUT STILL NEEDED SPUTUM SAMPLE FROM HER. SAFETY AND COMFORT PROVIDED. ALL NEEDS ARE MET.WILL ENDORSE TO DAYSHIFT NURSE FOR CONTINUITY OF CARE.
[2017-11-04] MEDS: BLOOD SUGAR DIAGNOSTIC 1 EACH STRIP VI SCH ×4 (06:36→20:01)
[2017-11-04] MEDS: INSULIN REGULAR, HUMAN 300 UNIT/3 ML VIAL SQ PRN ×3 (08:32→17:05)
--- NOTE | 2017-11-04 09:47 | NUR ---
Clinical pharmacy note-Vancomycin dosing per pharmacy Subjective: To continue Vancomycin dosing on this 82 yo female patient for pna Objective: BUN 40 (11/03) Scr 1.3 (11/03) WBC 13.4 (11/03) Temp 98.8 Vanco random level: 8.3 with am labs ht 152.4 cm wt 63.5 kg Assessment/Plan: Will dose by level for today (no BMP today). Will give vanco 1gm IVPB x1 today at 1030. Plan to check vanoc random level & Srcr tomorrow with am labs. Will review the level in am & re-dose if appropriate. Will monitor daily.
[2017-11-04] MEDS: MECLIZINE HCL 25 MG TABLET PO SCH ×3 (10:04→17:01)
[2017-11-04] MEDS: SUCRALFATE 1 G TABLET PO SCH ×3 (10:04→17:01)
[2017-11-04] MEDS: VENLAFAXINE 75 MG TABLET PO SCH (10:04)
[2017-11-04] MEDS: METOPROLOL SUCCINATE XL 25 MG TAB.SR.24H PO SCH (10:04)
[2017-11-04] MEDS: ATORVASTATIN 10 MG TABLET PO SCH (10:04)
[2017-11-04] MEDS: CLOPIDOGREL 75 MG TABLET PO SCH (10:04)
[2017-11-04] MEDS: PANTOPRAZOLE SODIUM 40 MG TABLET.DR PO SCH (10:04)
[2017-11-04] MEDS: methylPREDNISolone SOD SUCC 40 MG/ML VIAL IV SCH ×2 (10:05→20:00)
[2017-11-04] MEDS: hydrALAZINE HCL 50 MG TABLET PO SCH ×3 (10:10→17:03)
[2017-11-04] MEDS: FLUTICASONE/VILANTEROL 1 EACH BLST.W.DEV INH SCH (10:12)
[2017-11-04] MEDS ORDERED: VANCOMYCIN IV 1 G in PREMIXED 0 EACH IV ONE (10:30)
[2017-11-04] MEDS: HYDROCODONE/APAP 5-325MG TABLET PO PRN (11:23)
[2017-11-04 11:52] VITALS: BP 128/55
[2017-11-04 15:58] VITALS: BP 112/53
[2017-11-04] MEDS: MONTELUKAST SODIUM 10 MG TABLET PO SCH (17:01)
[2017-11-04 19:00] VITALS: BP 126/50
--- NOTE | 2017-11-04 19:21 | NUR ---
RECEIVED PT AWAKE, ALERT, AND ORIENTEDX3. PT SHOWS NO SIGNS OF DISTRESS. IV INTACT AND PATENT. CALL LIGHT WITHIN REACH. SAFETY AND COMFORT PROVIDED. WILL CONTINUE TO MONITOR.
[2017-11-04] MEDS: LACTOBACILLUS RHAMNOSUS GG 1 EACH CAPSULE PO SCH (20:00)
[2017-11-04] MEDS: INSULIN REGULAR, HUMAN 300 UNITS/3 ML VIAL SQ PRN (20:03)
[2017-11-05] MEDS: ALBUTEROL SULFATE 1.25 MG/3 ML NEBU NEB SCH ×4 (01:21→19:20)
[2017-11-05 04:00] VITALS: BP 138/76
--- NOTE | 2017-11-05 06:16 | NUR ---
PT SLEPT THROUGHOUT THE SHIFT. PT SHOWS NO SIGNS OF DISTRESS. IV INTACT. PT SHOWS NO SIGNS OF SOB.PRESCRIBED MEDICATION GIVEN AND PT TOLERATED IT WELL. CALL LIGHT WITHIN REACH. SAFETY AND COMFORT PROVIDED.WILL ENDORSE ACCORDINGLY TO DAYSHIFT NURSE FOR CONTINUITY OF CARE.
[2017-11-05] MEDS: BLOOD SUGAR DIAGNOSTIC 1 EACH STRIP VI SCH ×4 (06:38→20:17)
[2017-11-05 06:42] LABS: CARBON DIOXIDE 27 mmol/L (21-32); CHLORIDE 93 mmol/L (98-107); GLUCOSE 136 mg/dL (74-106); POTASSIUM 4.9 mmol/L (3.5-5.1); UREA NITROGEN, BLOOD 35 mg/dL (7-18); VANCOMYCIN,RANDOM 10.6 ug/mL (18.0-26.0)
--- NOTE | 2017-11-05 07:30 | NUR ---
Awake, alert, oriented x 3, azeri speaking. O2 at 2L/NC, not in distress, comfortable. Bed alarm on
[2017-11-05] MEDS: FLUTICASONE/VILANTEROL 1 EACH BLST.W.DEV INH SCH (08:29)
[2017-11-05] MEDS: methylPREDNISolone SOD SUCC 40 MG/ML VIAL IV SCH ×2 (08:30→20:50)
[2017-11-05] MEDS: MECLIZINE HCL 25 MG TABLET PO SCH ×3 (08:30→17:11)
[2017-11-05] MEDS: PANTOPRAZOLE SODIUM 40 MG TABLET.DR PO SCH (08:31)
[2017-11-05] MEDS: VENLAFAXINE 75 MG TABLET PO SCH (08:31)
[2017-11-05] MEDS: SUCRALFATE 1 G TABLET PO SCH ×3 (08:31→17:12)
[2017-11-05] MEDS: ATORVASTATIN 10 MG TABLET PO SCH (08:31)
[2017-11-05] MEDS: hydrALAZINE HCL 50 MG TABLET PO SCH ×3 (08:31→17:12)
[2017-11-05] MEDS: LACTOBACILLUS RHAMNOSUS GG 1 EACH CAPSULE PO SCH ×2 (08:31→20:18)
[2017-11-05] MEDS: METOPROLOL SUCCINATE XL 25 MG TAB.SR.24H PO SCH (08:32)
--- NOTE | 2017-11-05 08:33 | NUR ---
Clinical pharmacy note-Vancomycin dosing per pharmacy Subjective: To continue Vancomycin dosing on this 82 yo female patient for pna Objective: BUN 35 Scr 1.0 WBC 13.4 (11/03) Temp 98.5 Vanco random level: 10.6 with am labs ht 152.4 cm wt 63.5 kg Assessment/Plan: Since renal function is unstable(1.0 vs 1.3), will continue to dose by level . Will give vanco 1gm IVPB x1 today at 0930. Plan to check vanco random level with am labs. Will review the level in am & re-dose if appropriate. Will monitor daily.
[2017-11-05] MEDS: INSULIN REGULAR, HUMAN 300 UNIT/3 ML VIAL SQ PRN ×3 (08:35→17:14)
[2017-11-05] MEDS: CLOPIDOGREL 75 MG TABLET PO SCH (09:14)
[2017-11-05] MEDS ORDERED: VANCOMYCIN IV 1 G in PREMIXED 0 EACH IV ONE (09:30)
--- NOTE | 2017-11-05 10:00 | NUR ---
Refused PT at this time
[2017-11-05 11:14] VITALS: BP 141/66
[2017-11-05] MEDS ORDERED: BISACODYL 10 MG SUPP.RECT RC PRN (14:00)
[2017-11-05] MEDS: LACTULOSE 20 G/30 ML LIQUID UDC PO SCH ×2 (14:18→20:18)
--- NOTE | 2017-11-05 14:18 | NUR ---
Complaining of abdominal discomfort, constipation. Lactulose po given with BM after
--- NOTE | 2017-11-05 14:30 | NUR ---
Refused TAYE ROQUE tomorrow
[2017-11-05 15:48] VITALS: BP 114/62
[2017-11-05] MEDS: MONTELUKAST SODIUM 10 MG TABLET PO SCH (17:12)
[2017-11-05] MEDS: SODIUM CHLORIDE 1,000 MG TABLET PO SCH (17:12)
--- NOTE | 2017-11-05 18:00 | NUR ---
Saline lock restarted to LFA g 22
--- NOTE | 2017-11-05 20:00 | NUR ---
RECEIVED PATIENT AWAKE IN BED. PATIENT IS A/O X4. SET[place] SPEAKING BUT ABLE TO MAKE NEEDS KNOWN. DENIES PAIN OR DISCOMFORT. NO RESP. DISTRESS NOTED. ON O2 2L NC SATING WELL. H/L INTACT AND PATENT, NOTED TO LEFT FA #22 GAUGE. BED ALARM ON. CALL LIGHT IN REACH. ALL NEEDS ATTENDED. WILL CONTINUE TO MONITOR AND ASSESS.
[2017-11-05 20:03] VITALS: BP 120/53
[2017-11-05] MEDS: INSULIN REGULAR, HUMAN 300 UNITS/3 ML VIAL SQ PRN (20:17)
[2017-11-05] MEDS: DOCUSATE SODIUM 100 MG CAPSULE PO SCH (20:18)
[2017-11-05] MEDS: LEVOFLOXACIN 750MG/D5W 750 MG in PREMIXED 1 EACH IV SCH (20:50)
[2017-11-05] MEDS: ZOLPIDEM 5 MG TABLET PO PRN (22:34)
[2017-11-06] MEDS: ALBUTEROL SULFATE 1.25 MG/3 ML NEBU NEB SCH ×4 (01:28→19:28)
[2017-11-06 05:07] VITALS: BP 148/61
[2017-11-06 06:07] LABS: BASOPHILS % (AUTO) 0.1 % (0.0-2.0); HEMATOCRIT 30.8 % (31.2-41.9); HEMOGLOBIN 10.8 g/dL (10.9-14.3); LYMPHOCYTES # (AUTO) 0.4 K/uL (20.0-40.0); LYMPHOCYTES % (AUTO) 4.3 % (20.5-51.5); MEAN CORPUSCULAR HEMOGLOBIN 30.9 uug (24.7-32.8); MEAN CORPUSCULAR HGB CONC 35 g/dL (32.3-35.6); MEAN CORPUSCULAR VOLUME 87.9 fL (75.5-95.3); MONOCYTES # (AUTO) 0.5 K/uL (2.0-10.0); MONOCYTES % (AUTO) 4.5 % (0.0-11.0); NEUTROPHILS # (AUTO) 9.2 K/uL (1.8-8.9); NEUTROPHILS % (AUTO) 91.1 % (38.5-71.5); PLATELET COUNT (AUTO) 376 K/uL (179-408); WHITE BLOOD COUNT (AUTO) 10.1 K/uL (3.8-11.8)
--- NOTE | 2017-11-06 06:19 | NUR ---
PATIENT ASLEEP IN BED. EASILY AROUSABLE. SLEPT WELL. CALL LIGHT IN REACH. ALL NEEDS ATTENDED. WILL CONTINUE TO MONITOR.
[2017-11-06 06:23] LABS: ALANINE AMINOTRANSFERASE 24 U/L (14-59); ALKALINE PHOSPHATASE 52 U/L (50-136); ASPARTATE AMINOTRANSFERASE 11 U/L (15-37); BILIRUBIN,TOTAL 0.3 mg/dL (0.2-1.0); CARBON DIOXIDE 27 mmol/L (21-32); CHLORIDE 94 mmol/L (98-107); CREATININE 0.9 mg/dL (0.6-1.3); GLUCOSE 165 mg/dL (74-106); MAGNESIUM 1.9 mg/dL (1.8-2.4); PHOSPHOROUS 2.8 mg/dL (2.5-4.9); POTASSIUM 4.8 mmol/L (3.5-5.1); TOTAL PROTEIN, SERUM 5.7 g/dL (6.4-8.2); UREA NITROGEN, BLOOD 29 mg/dL (7-18); VANCOMYCIN,RANDOM 12.6 ug/mL (18.0-26.0)
[2017-11-06] MEDS: BLOOD SUGAR DIAGNOSTIC 1 EACH STRIP VI SCH ×4 (06:46→21:55)
[2017-11-06] MEDS: INSULIN REGULAR, HUMAN 300 UNIT/3 ML VIAL SQ PRN ×4 (08:03→21:56)
[2017-11-06] MEDS: LACTOBACILLUS RHAMNOSUS GG 1 EACH CAPSULE PO SCH ×2 (09:09→21:55)
[2017-11-06] MEDS: SODIUM CHLORIDE 1,000 MG TABLET PO SCH ×3 (09:09→16:19)
[2017-11-06] MEDS: VENLAFAXINE 75 MG TABLET PO SCH (09:09)
[2017-11-06] MEDS: methylPREDNISolone SOD SUCC 40 MG/ML VIAL IV SCH (09:09)
[2017-11-06] MEDS: LACTULOSE 20 G/30 ML LIQUID UDC PO SCH ×2 (09:10→21:54)
[2017-11-06] MEDS: ATORVASTATIN 10 MG TABLET PO SCH (09:10)
[2017-11-06] MEDS: SUCRALFATE 1 G TABLET PO SCH ×3 (09:10→16:19)
[2017-11-06] MEDS: METOPROLOL SUCCINATE XL 25 MG TAB.SR.24H PO SCH (09:10)
[2017-11-06] MEDS: CLOPIDOGREL 75 MG TABLET PO SCH (09:10)
[2017-11-06] MEDS: hydrALAZINE HCL 50 MG TABLET PO SCH ×3 (09:10→16:19)
[2017-11-06] MEDS: MECLIZINE HCL 25 MG TABLET PO SCH ×3 (09:10→16:19)
[2017-11-06] MEDS: PANTOPRAZOLE SODIUM 40 MG TABLET.DR PO SCH (09:10)
[2017-11-06] MEDS: FLUTICASONE/VILANTEROL 1 EACH BLST.W.DEV INH SCH (09:11)
--- NOTE | 2017-11-06 09:45 | NUR ---
Clinical pharmacy note-Vancomycin dosing per pharmacy Subjective: To continue Vancomycin dosing on this 82 yo female patient for pna Objective: BUN 29 Scr 0.9 WBC 10.1 Temp 98.7 Vanco random level: 12.6 with am labs ht 152.4 cm wt 63.5 kg Assessment/Plan: Since random level is under 20, will give 1gram x1 today at 1000 and continue to dose by level . Plan to check vanco random level with am labs(ordered). Will review the level in am & re-dose if appropriate. Will monitor daily.
[2017-11-06] MEDS ORDERED: VANCOMYCIN IV 1 G in PREMIXED 0 EACH IV ONE (10:00)
[2017-11-06 11:18] VITALS: BP 129/72
[2017-11-06 15:45] VITALS: BP 130/58
[2017-11-06] MEDS: MONTELUKAST SODIUM 10 MG TABLET PO SCH (17:19)
[2017-11-06] MEDS: predniSONE 20 MG TABLET PO SCH (17:19)
--- NOTE | 2017-11-06 19:30 | NUR ---
NOTED PT TO BE RESTING QUIETLY IN BED, NO DISTRESS NOTED.JUST REQUESTING SLEEPER..
[2017-11-06 19:42] VITALS: BP 143/62
[2017-11-06] MEDS: DOCUSATE SODIUM 100 MG CAPSULE PO SCH (21:55)
[2017-11-06] MEDS: ZOLPIDEM 5 MG TABLET PO PRN (22:00)
[2017-11-07] MEDS: ALBUTEROL SULFATE 1.25 MG/3 ML NEBU NEB SCH ×4 (00:52→19:25)
[2017-11-07 05:00] VITALS: BP 156/79
--- NOTE | 2017-11-07 06:20 | NUR ---
PT HAD UNEVENTFUL NIGHT, SLEPT MOST OF NIGHT AFTER SLEEPER GIVEN.
[2017-11-07 06:46] LABS: BASOPHILS % (AUTO) 0.2 % (0.0-2.0); EOSINOPHILS % (AUTO) 0.1 % (0.0-7.0); HEMATOCRIT 31.7 % (31.2-41.9); LYMPHOCYTES # (AUTO) 1.2 K/uL (20.0-40.0); LYMPHOCYTES % (AUTO) 8.9 % (20.5-51.5); MEAN CORPUSCULAR HEMOGLOBIN 29.8 uug (24.7-32.8); MEAN CORPUSCULAR HGB CONC 35 g/dL (32.3-35.6); MEAN CORPUSCULAR VOLUME 86.1 fL (75.5-95.3); MONOCYTES # (AUTO) 1.3 K/uL (2.0-10.0); MONOCYTES % (AUTO) 9.6 % (0.0-11.0); NEUTROPHILS # (AUTO) 10.6 K/uL (1.8-8.9); NEUTROPHILS % (AUTO) 81.2 % (38.5-71.5); PLATELET COUNT (AUTO) 389 K/uL (179-408); RED BLOOD CELL COUNT(AUTO) 3.69 MIL/uL (3.63-4.92); WHITE BLOOD COUNT (AUTO) 13.1 K/uL (3.8-11.8)
--- NOTE | 2017-11-07 07:20 | NUR ---
RN notes: received patient in bed, awake, alert and oriented x3, in no acute distress. O2 on at 2LPM via NC. Denies chest pain or SOB. IV site on LFA patent. Fall precaution in place. Will continue to monitor
[2017-11-07] MEDS: BLOOD SUGAR DIAGNOSTIC 1 EACH STRIP VI SCH ×4 (07:42→21:19)
[2017-11-07 07:46] LABS: ALANINE AMINOTRANSFERASE 23 U/L (14-59); ALKALINE PHOSPHATASE 51 U/L (50-136); ASPARTATE AMINOTRANSFERASE 12 U/L (15-37); BILIRUBIN,TOTAL 0.3 mg/dL (0.2-1.0); CARBON DIOXIDE 28 mmol/L (21-32); CHLORIDE 93 mmol/L (98-107); CREATININE 0.8 mg/dL (0.6-1.3); GLUCOSE 106 mg/dL (74-106); MAGNESIUM 1.8 mg/dL (1.8-2.4); PHOSPHOROUS 2.9 mg/dL (2.5-4.9); POTASSIUM 4.4 mmol/L (3.5-5.1); TOTAL PROTEIN, SERUM 5.5 g/dL (6.4-8.2); UREA NITROGEN, BLOOD 24 mg/dL (7-18)
[2017-11-07] MEDS: hydrALAZINE HCL 50 MG TABLET PO SCH ×3 (09:00→17:32)
[2017-11-07] MEDS: predniSONE 20 MG TABLET PO SCH ×2 (10:01→17:31)
[2017-11-07] MEDS: PANTOPRAZOLE SODIUM 40 MG TABLET.DR PO SCH (10:01)
[2017-11-07] MEDS: METOPROLOL SUCCINATE XL 25 MG TAB.SR.24H PO SCH (10:01)
[2017-11-07] MEDS: SUCRALFATE 1 G TABLET PO SCH ×3 (10:01→17:31)
[2017-11-07] MEDS: LACTOBACILLUS RHAMNOSUS GG 1 EACH CAPSULE PO SCH ×2 (10:01→21:20)
[2017-11-07] MEDS: FUROSEMIDE 20 MG TABLET PO SCH (10:02)
[2017-11-07] MEDS: VENLAFAXINE 75 MG TABLET PO SCH (10:02)
[2017-11-07] MEDS: CLOPIDOGREL 75 MG TABLET PO SCH (10:02)
[2017-11-07] MEDS: ATORVASTATIN 10 MG TABLET PO SCH (10:02)
[2017-11-07] MEDS: MECLIZINE HCL 25 MG TABLET PO SCH ×3 (10:02→17:31)
[2017-11-07] MEDS: SODIUM CHLORIDE 1,000 MG TABLET PO SCH ×3 (10:02→17:31)
[2017-11-07] MEDS: LACTULOSE 20 G/30 ML LIQUID UDC PO SCH ×2 (10:03→21:20)
[2017-11-07] MEDS: FLUTICASONE/VILANTEROL 1 EACH BLST.W.DEV INH SCH (10:03)
[2017-11-07 11:10] VITALS: BP 134/64
[2017-11-07] MEDS: INSULIN REGULAR, HUMAN 300 UNIT/3 ML VIAL SQ PRN ×2 (11:58→17:33)
[2017-11-07 15:18] VITALS: BP 105/57
[2017-11-07] MEDS: MONTELUKAST SODIUM 10 MG TABLET PO SCH (17:31)
--- NOTE | 2017-11-07 18:42 | NUR ---
RN notes: Patient is alert and oriented x4, in no acute distress. O2 on at 2LPM via NC. Denies chest pain or SOB at this time. Routine breathing treatment administered as ordered. Turned and repositioned every 2 hours. No acute change of condition noted. All needs attended and met. Will continue to monitor
[2017-11-07 19:00] VITALS: BP 127/57
[2017-11-07] MEDS: DOCUSATE SODIUM 100 MG CAPSULE PO SCH (21:20)
[2017-11-07] MEDS: INSULIN REGULAR, HUMAN 300 UNITS/3 ML VIAL SQ PRN (22:13)
[2017-11-08] MEDS: ALBUTEROL SULFATE 1.25 MG/3 ML NEBU NEB SCH ×4 (00:30→19:30)
[2017-11-08 04:00] VITALS: BP 159/61
[2017-11-08 06:32] LABS: ALANINE AMINOTRANSFERASE 28 U/L (14-59); ALKALINE PHOSPHATASE 54 U/L (50-136); ASPARTATE AMINOTRANSFERASE 11 U/L (15-37); BILIRUBIN,TOTAL 0.4 mg/dL (0.2-1.0); CARBON DIOXIDE 31 mmol/L (21-32); CHLORIDE 92 mmol/L (98-107); CREATININE 0.8 mg/dL (0.6-1.3); GLUCOSE 121 mg/dL (74-106); MAGNESIUM 1.8 mg/dL (1.8-2.4); PHOSPHOROUS 3.2 mg/dL (2.5-4.9); POTASSIUM 4.3 mmol/L (3.5-5.1); TOTAL PROTEIN, SERUM 5.7 g/dL (6.4-8.2); UREA NITROGEN, BLOOD 28 mg/dL (7-18)
[2017-11-08] MEDS: BLOOD SUGAR DIAGNOSTIC 1 EACH STRIP VI SCH ×3 (06:58→16:56)
[2017-11-08 07:09] LABS: BASOPHILS % (AUTO) 0.2 % (0.0-2.0); EOSINOPHILS % (AUTO) 0.1 % (0.0-7.0); HEMATOCRIT 32.6 % (31.2-41.9); HEMOGLOBIN 11.4 g/dL (10.9-14.3); LYMPHOCYTES # (AUTO) 0.9 K/uL (20.0-40.0); LYMPHOCYTES % (AUTO) 5.7 % (20.5-51.5); MEAN CORPUSCULAR HEMOGLOBIN 30.3 uug (24.7-32.8); MEAN CORPUSCULAR HGB CONC 35 g/dL (32.3-35.6); MONOCYTES # (AUTO) 0.9 K/uL (2.0-10.0); MONOCYTES % (AUTO) 5.8 % (0.0-11.0); NEUTROPHILS # (AUTO) 13.6 K/uL (1.8-8.9); NEUTROPHILS % (AUTO) 88.2 % (38.5-71.5); PLATELET COUNT (AUTO) 411 K/uL (179-408); RED BLOOD CELL COUNT(AUTO) 3.75 MIL/uL (3.63-4.92); WHITE BLOOD COUNT (AUTO) 15.3 K/uL (3.8-11.8)
[2017-11-08] MEDS: INSULIN REGULAR, HUMAN 300 UNIT/3 ML VIAL SQ PRN ×3 (07:57→17:02)
[2017-11-08] MEDS: FLUTICASONE/VILANTEROL 1 EACH BLST.W.DEV INH SCH (08:01)
[2017-11-08] MEDS: VENLAFAXINE 75 MG TABLET PO SCH (08:05)
[2017-11-08] MEDS: CLOPIDOGREL 75 MG TABLET PO SCH (08:05)
[2017-11-08] MEDS: LACTOBACILLUS RHAMNOSUS GG 1 EACH CAPSULE PO SCH (08:05)
[2017-11-08] MEDS: predniSONE 20 MG TABLET PO SCH ×2 (08:05→16:57)
[2017-11-08] MEDS: SODIUM CHLORIDE 1,000 MG TABLET PO SCH ×3 (08:05→16:57)
[2017-11-08] MEDS: FUROSEMIDE 20 MG TABLET PO SCH (08:05)
[2017-11-08] MEDS: MECLIZINE HCL 25 MG TABLET PO SCH ×3 (08:05→16:57)
[2017-11-08] MEDS: SUCRALFATE 1 G TABLET PO SCH ×3 (08:05→16:57)
[2017-11-08] MEDS: ATORVASTATIN 10 MG TABLET PO SCH (08:05)
[2017-11-08] MEDS: PANTOPRAZOLE SODIUM 40 MG TABLET.DR PO SCH (08:06)
[2017-11-08] MEDS: METOPROLOL SUCCINATE XL 25 MG TAB.SR.24H PO SCH (08:06)
[2017-11-08] MEDS: LACTULOSE 20 G/30 ML LIQUID UDC PO SCH (08:06)
[2017-11-08] MEDS: hydrALAZINE HCL 50 MG TABLET PO SCH ×3 (08:06→16:57)
[2017-11-08] MEDS ORDERED: DOCU100C36 PO (09:14)
[2017-11-08] MEDS ORDERED: PRED20TA PO (09:14)
[2017-11-08] MEDS ORDERED: SODI100037 PO (09:14)
[2017-11-08] MEDS ORDERED: FURO20TA4 PO (09:14)
--- NOTE | 2017-11-08 09:58 | NUR ---
Patient noted resting in bed, daughter noted in room, no complaints of pain at this time, no signs of distress noted, call light in reach, bed locked and in lowest position, all needs met
[2017-11-08 11:21] VITALS: BP 122/61
[2017-11-08 12:06] LABS: LYMPHOCYTES % (MANUAL) 4 % (20-40); METAMYELOCYTES % 4 % (0-1); MONOCYTES % (MANUAL) 3 % (2-10); MYELOCYTES % 3 % (0-0); NEUTROPHILS % (MANUAL) 86 % (42-75)
[2017-11-08 15:40] VITALS: BP 123/59
[2017-11-08 16:57] VITALS: BP 149/59
[2017-11-08] MEDS: MONTELUKAST SODIUM 10 MG TABLET PO SCH (16:57)
--- NOTE | 2017-11-08 20:15 | NUR ---
PT DISCHARGED WHEELED OUT VIA WHEELCHAIR BY MARIAH. DISCHARGE INSTRUCTION GIVEN TO THE PT. DISCHARGE PACKET GIVEN. PT UNDERSTAND AND HER DAUGHTER. PT SHOWS NO SIGNS OF DISCHARGE. PT STABLE WITH NO ACUTE DISTRESS. PT VITAL SIGNS WITHIN NORMAL LIMIT. BELONGING LIST DONE.ID BAND TAKEN OUT. IV TAKEN OUT. PT STABLE.
== END 2017-11-08 20:15 | disposition home health service (06) | DRG 190 ==
LOC: ER 14:44 → TELE 17:23 → MED 11-03 11:07
PROVIDERS: ADMIT Internal Medicine; ATTEND Internal Medicine
DX: J44.1 Chronic obstructive pulmonary disease with (acute) exacerbation (principal); J15.9 Unspecified bacterial pneumonia; I13.0 Hypertensive heart and chronic kidney disease with heart failure and stage 1 through stage 4 chronic kidney disease, or unspecified chronic kidney disease; I50.32 Chronic diastolic (congestive) heart failure; E87.1 Hypo-osmolality and hyponatremia; J98.11 Atelectasis; J44.0 Chronic obstructive pulmonary disease with (acute) lower respiratory infection; E11.22 Type 2 diabetes mellitus with diabetic chronic kidney disease; N18.2 Chronic kidney disease, stage 2 (mild); E66.9 Obesity, unspecified; Z68.27 Body mass index [BMI] 27.0-27.9, adult; Z71.3 Dietary counseling and surveillance; Z88.0 Allergy status to penicillin; K21.9 Gastro-esophageal reflux disease without esophagitis; E78.5 Hyperlipidemia, unspecified; Z79.02 Long term (current) use of antithrombotics/antiplatelets; Z79.899 Other long term (current) drug therapy; E87.5 Hyperkalemia; M19.90 Unspecified osteoarthritis, unspecified site; N39.3 Stress incontinence (female) (male); R42 Dizziness and giddiness; K44.9 Diaphragmatic hernia without obstruction or gangrene; K22.70 Barrett's esophagus without dysplasia; I25.10 Atherosclerotic heart disease of native coronary artery without angina pectoris; D64.9 Anemia, unspecified; F03.90 Unspecified dementia, unspecified severity, without behavioral disturbance, psychotic disturbance, mood disturbance, and anxiety; T38.0X5A Adverse effect of glucocorticoids and synthetic analogues, initial encounter; Y92.099 Unspecified place in other non-institutional residence as the place of occurrence of the external cause; I70.0 Atherosclerosis of aorta; K59.00 Constipation, unspecified; M85.80 Other specified disorders of bone density and structure, unspecified site; Z90.710 Acquired absence of both cervix and uterus
CPT/HCPCS: 36415; 36600; 70030-TC; 71045; 82533; 83735; 84100; 85025; 93005; 94640; 94664; 97110; 97116; 97530; A4663; J1815; J1940; J1956; J2920; J2930; J3370; J3475; J3590; J7050; J7512; J8597

== ENCOUNTER 2018-03-27 13:30 | Inpatient (IN) | payer MEDICARE, MEDICAID ==
[~2018-03-27] VITALS: Ht 149.9 cm; Wt 61.7 kg
[~2018-03-27 13:30] MED LIST changes: -ACET1TAB12 PO; +ATOR10TA PO; -AZIT250T13 PO; -CALC-15 PO; +CICL15CR12 TP; -CLON0.1T PO; -CLON0.3T PO; +DICL100G16 TP; +DOCU100C36 PO; +FLUT1DIS28 INH; +FURO20TA4 PO; +IPRA4AER IH; -ISOS30TA6 PO; +LACT10SO PO; +LOPE1LIQ56 PO; +LOSA100T3 PO; +MECL-102 PO; +NITR0.4T SL; +PRED20TA PO; -QUET50TA PO; -SIMV10TA2 PO; +SODI100037 PO; +SPIR50TA5 PO; +SUCR1TAB PO; -TRAM50TA2 PO; -VALS160T2 PO; +VENL75TA4 PO; -methylPREDNISolone SOD SUCC IV
--- NOTE | 2018-03-27 13:45 | NUR ---
Dr. Vicente at the bedside for MSE.
[2018-03-27] MEDS ORDERED: IPRATROPIUM BROMIDE 0.5 MG/2.5 ML NEBU NEB ONE (14:00)
[2018-03-27] MEDS ORDERED: DEXAMETHASONE SOD PHOSPHATE 4 MG INJ IV ONE (14:00)
[2018-03-27] MEDS ORDERED: ALBUTEROL SULFATE 2.5 MG/3 ML NEBU NEB ONE (14:00)
[2018-03-27] MEDS ORDERED: ALBUTEROL SULFATE 2.5 MG/3 ML NEBU ONE (14:01)
[2018-03-27] MEDS ORDERED: ALBUTEROL SULFATE 2.5 MG/ 0.5 ML NEBU ONE (14:01)
[2018-03-27] MEDS ORDERED: IPRATROPIUM BROMIDE 0.5 MG/2.5 ML NEBU ONE (14:01)
[2018-03-27] MEDS ORDERED: DEXAMETHASONE SOD PHOSPHATE 10 MG INJ ONE (14:10)
[2018-03-27] MEDS ORDERED: CICL15CR12 TP (14:16)
[2018-03-27] MEDS ORDERED: SOLI5TAB2 PO (14:16)
[2018-03-27] MEDS ORDERED: IPRA4AER IH (14:16)
[2018-03-27] MEDS ORDERED: IPRA12.9 IH (14:16)
[2018-03-27] MEDS ORDERED: METO-357 PO (14:16)
[2018-03-27] MEDS ORDERED: FLUT16SP NS (14:16)
[2018-03-27] MEDS ORDERED: VENL75TA7 PO (14:16)
[2018-03-27] MEDS ORDERED: CHOL500050 PO (14:16)
[2018-03-27] MEDS ORDERED: QUET25TA PO (14:16)
[2018-03-27] MEDS ORDERED: QUET50TA PO (14:16)
[2018-03-27] MEDS ORDERED: MONT10TA22 PO (14:16)
[2018-03-27] MEDS ORDERED: NITR0.4T48 SL (14:16)
[2018-03-27] MEDS ORDERED: LOSA100T31 PO (14:16)
[2018-03-27] MEDS ORDERED: ERYT-113 PO (14:16)
[2018-03-27] MEDS ORDERED: HYDR-4077 PO (14:16)
[2018-03-27] MEDS ORDERED: DICL100G16 TP (14:16)
[2018-03-27] MEDS ORDERED: CALC-995 PO (14:16)
[2018-03-27] MEDS ORDERED: AMLO5TAB4 PO (14:16)
[2018-03-27] MEDS ORDERED: LOPE2TAB57 PO (14:16)
[2018-03-27] MEDS ORDERED: DOCU100C36 PO (14:16)
[2018-03-27 14:28] LABS: BASOPHILS % (AUTO) 0.4 % (0.0-2.0); EOSINOPHILS % (AUTO) 0.2 % (0.0-7.0); HEMATOCRIT 37.6 % (31.2-41.9); HEMOGLOBIN 12.4 g/dL (10.9-14.3); LYMPHOCYTES # (AUTO) 0.8 K/uL (20.0-40.0); LYMPHOCYTES % (AUTO) 8.1 % (20.5-51.5); MEAN CORPUSCULAR HEMOGLOBIN 28.4 uug (24.7-32.8); MEAN CORPUSCULAR HGB CONC 33 g/dL (32.3-35.6); MEAN CORPUSCULAR VOLUME 86.1 fL (75.5-95.3); MONOCYTES # (AUTO) 0.8 K/uL (2.0-10.0); MONOCYTES % (AUTO) 8.5 % (0.0-11.0); NEUTROPHILS # (AUTO) 7.9 K/uL (1.8-8.9); NEUTROPHILS % (AUTO) 82.8 % (38.5-71.5); PLATELET COUNT (AUTO) 480 K/uL (179-408); RED BLOOD CELL COUNT(AUTO) 4.37 MIL/uL (3.63-4.92); WHITE BLOOD COUNT (AUTO) 9.6 K/uL (3.8-11.8)
[2018-03-27 14:35] LABS: CARBON DIOXIDE 27 mmol/L (21-32); CHLORIDE 95 mmol/L (98-107); CREATININE 1.2 mg/dL (0.6-1.3); GLUCOSE 176 mg/dL (74-106); POTASSIUM 5.2 mmol/L (3.5-5.1); UREA NITROGEN, BLOOD 15 mg/dL (7-18)
[2018-03-27 14:47] LABS: ALANINE AMINOTRANSFERASE 20 U/L (14-59); ALKALINE PHOSPHATASE 112 U/L (50-136); ASPARTATE AMINOTRANSFERASE 20 U/L (15-37); BILIRUBIN,DIRECT 0.1 mg/dL (0.0-0.2); BILIRUBIN,TOTAL 0.3 mg/dL (0.2-1.0); TOTAL PROTEIN, SERUM 7.3 g/dL (6.4-8.2)
[2018-03-27] MEDS ORDERED: CEFTRIAXONE 1 G in IV DEXTROSE 5% 50 ML IV ONE (15:00)
[2018-03-27] MEDS ORDERED: IV NORMAL SALINE 1000 ML BAG IV ONE (15:00)
[2018-03-27] MEDS ORDERED: AZITHROMYCIN IV 500 MG in IV DEXTROSE 5% 250 ML IV ONE (15:00)
--- NOTE | 2018-03-27 15:08 | NUR ---
Patient discharged to home in stable conditon. Written and verbal after care instructions given. Patient verbalizes understanding of instructions. Addendum: 03/27/18 at 1508 by LAURE *disregard previous note charted wrong pt. Pt not discharged*
[2018-03-27] MEDS ORDERED: AZITHROMYCIN 500 MG VIAL IV ONE (15:13)
[2018-03-27] MEDS ORDERED: CEFTRIAXONE 1 G VIAL ONE (15:13)
--- NOTE | 2018-03-27 15:45 | NUR ---
Spoke with Dr. Rader on the telephone. New admission orders for 2nd floor received.
--- NOTE | 2018-03-27 15:56 | NUR ---
Full telephone SBAR report given to DALILA Cochran 2nd floor.
--- NOTE | 2018-03-27 16:36 | NUR ---
Pt transferred to room 217-T with rfid technician. All belongings reviewed and brought with the pt. Pt stable and nad noted upon transfer.
[2018-03-27 16:45] VITALS: BP 101/57
--- NOTE | 2018-03-27 16:45 | NUR ---
received from ER per evens awake alert and oriented, tele applied- ST 120's, oriented to bed controls and room setup, routine admission care rendered, assessment done, safety measures initiated, call light within reach.
--- NOTE | 2018-03-27 16:50 | NUR ---
also received from ER NS with 100ml in bag, consumed and hang 1 liter of NS which 800ml to be infused per ER. no distress noted
[2018-03-27] MEDS ORDERED: LOPERAMIDE HCL 2 MG CAPSULE PO PRN (17:30)
[2018-03-27] MEDS ORDERED: NITROGLYCERIN 0.4 MG/TAB BOTTLE SL PRN (17:30)
[2018-03-27] MEDS ORDERED: HOME MED MISCELLANEOUS TP PRN (17:30)
[2018-03-27] MEDS ORDERED: VENLAFAXINE 25 MG TABLET PO SCH (18:30)
--- NOTE | 2018-03-27 18:57 | NUR ---
restin in bed, no distress noted, remains ST 119. call light within reach
--- NOTE | 2018-03-27 19:20 | NUR ---
RECEIVED PT AWAKE, ALERT AND ORIENTEDX4. PT SHOWS NO SIGNS OF DISTRESS. IV INTACT. SAFETY AND COMFORT PROVIDED. WILL CONTINUE TO MONITOR.
[2018-03-27 20:00] VITALS: BP 121/50
[2018-03-27 20:06] LABS: *BILIRUBIN,URIN NEGATIVE (NEGATIVE); *BLOOD, URINE NEGATIVE (NEGATIVE); *CLARITY,URINE SLIGHTLY CLOUDY (CLEAR); *COLOR,URINE YELLOW (YELLOW); *KETONES,URINE NEGATIVE (NEGATIVE); *UROBILINOGEN,URINE 0.2 E.U./dl (NORMAL); LEUKOCYTE ESTERASE ,URINE TRACE (NEGATIVE); NITRITE, URINE NEGATIVE (NEGATIVE); UGLUCOSE TRACE (NEGATIVE)
[2018-03-27 20:10] LABS: BACTERIA,URINE RARE /HPF (NONE SEEN); RBC,URINE 0-3 /HPF (0-3); SQUAMOUS EPITHELIAL CELL,UR FEW /HPF (NONE SEEN)
[2018-03-27] MEDS: ATORVASTATIN 10 MG TABLET PO SCH (20:26)
[2018-03-27] MEDS: DOCUSATE SODIUM 100 MG CAPSULE PO SCH (20:26)
[2018-03-27] MEDS: QUETIAPINE FUMARATE 25 MG TABLET PO SCH (20:27)
[2018-03-27] MEDS: OXYBUTYNIN CHLORIDE 5 MG TABLET PO SCH (20:27)
[2018-03-27] MEDS: MONTELUKAST SODIUM 10 MG TABLET PO SCH (20:27)
[2018-03-27] MEDS ORDERED: PANTOPRAZOLE SODIUM 40 MG TABLET.DR PO SCH (21:00)
[2018-03-27] MEDS ORDERED: SOLIFENACIN SUCCINATE 5 MG TABEC PO SCH (21:00)
[2018-03-27] MEDS ORDERED: ERYTHROMYCIN BASE 250 MG TABLET.DR PO SCH (21:00)
[2018-03-27] MEDS: hydrALAZINE HCL 50 MG TABLET PO SCH (22:42)
[2018-03-28 00:06] VITALS: BP 100/55
[2018-03-28 04:00] VITALS: BP 113/64
[2018-03-28] MEDS: hydrALAZINE HCL 50 MG TABLET PO SCH ×3 (05:49→21:41)
[2018-03-28 06:28] LABS: CARBON DIOXIDE 23 mmol/L (21-32); CHLORIDE 99 mmol/L (98-107); CREATININE 1.1 mg/dL (0.6-1.3); GLUCOSE 162 mg/dL (74-106); MAGNESIUM 1.6 mg/dL (1.8-2.4); PHOSPHOROUS 3.8 mg/dL (2.5-4.9); POTASSIUM 4.7 mmol/L (3.5-5.1); UREA NITROGEN, BLOOD 15 mg/dL (7-18)
[2018-03-28 06:33] LABS: WHITE BLOOD COUNT (AUTO) 8.9 K/uL (3.8-11.8)
[2018-03-28 06:51] LABS: LYMPHOCYTES % (AUTO) 11.3 % (20.5-51.5); MEAN CORPUSCULAR HEMOGLOBIN 28.6 uug (24.7-32.8); MEAN CORPUSCULAR HGB CONC 34 g/dL (32.3-35.6); MEAN CORPUSCULAR VOLUME 85.2 fL (75.5-95.3); MONOCYTES # (AUTO) 0.2 K/uL (2.0-10.0); MONOCYTES % (AUTO) 2.6 % (0.0-11.0); NEUTROPHILS # (AUTO) 7.6 K/uL (1.8-8.9); NEUTROPHILS % (AUTO) 86.1 % (38.5-71.5); PLATELET COUNT (AUTO) 360 K/uL (179-408); RED BLOOD CELL COUNT(AUTO) 3.51 MIL/uL (3.63-4.92)
[2018-03-28 06:54] LABS: HEMATOCRIT 29.9 % (31.2-41.9); HEMOGLOBIN 10.1 g/dL (10.9-14.3)
--- NOTE | 2018-03-28 06:56 | NUR ---
PT SLEPT THROUGHOUT THE SHIFT. PT SHOWS NO SIGNS OF DISTRESS.IV INTACT.. PT TURNED AND REPOSITIONED.PT REFUSED HER HYDRALAZINE FOR 0600H. .PRESCRIBED MEDICATION GIVEN AND PT TOLERATED IT WELL. SAFETY AND COMFORT PROVIDED. WILL ENDORSE TO INCOMING NURSE FOR CONTINUITY OF CARE.
[2018-03-28] MEDS: SUCRALFATE 1 G TABLET PO SCH ×3 (07:30→16:16)
--- NOTE | 2018-03-28 08:00 | NUR ---
RECEIVED PATIENT AWAKE ALERT AND AWARE WITH LANGUAGE BARRIER NO MOANING OR FACIAL GRIMACING ALL NEEDS ANTICIPATED AND SATISFIED NO RESPIRATORY DISTRESS AT THIS TIME
[2018-03-28] MEDS: FLUTICASONE/VILANTEROL 1 EACH BLST.W.DEV INH SCH (08:17)
[2018-03-28] MEDS: CICLOPIROX 0.77% CREAM 30 GM TUBE TP SCH ×2 (08:17→16:16)
[2018-03-28] MEDS: SPIRONOLACTONE 50 MG TABLET PO SCH (08:18)
[2018-03-28] MEDS: CLOPIDOGREL 75 MG TABLET PO SCH (08:18)
[2018-03-28] MEDS: CALCIUM CARB/VITAMIN D 500MG-200UNITS TABLET PO SCH ×2 (08:18→16:16)
[2018-03-28] MEDS: QUETIAPINE FUMARATE 25 MG TABLET PO SCH ×2 (08:18→20:08)
[2018-03-28] MEDS: AMLODIPINE 5 MG TABLET PO SCH (08:19)
[2018-03-28] MEDS: OXYBUTYNIN CHLORIDE 5 MG TABLET PO SCH ×2 (08:19→20:08)
[2018-03-28] MEDS: MECLIZINE HCL 25 MG TABLET PO SCH ×3 (08:19→16:16)
[2018-03-28] MEDS: LOSARTAN POTASSIUM 50 MG TABLET PO SCH (08:20)
[2018-03-28] MEDS: FLUTICASONE PROP NASAL SPRAY 16 GM BOTTLE NS SCH ×2 (08:21→16:16)
[2018-03-28] MEDS: PANTOPRAZOLE SODIUM 40 MG TABLET.DR PO SCH ×2 (08:22→16:16)
[2018-03-28] MEDS ORDERED: METOPROLOL SUCCINATE XL 50 MG TAB.SR.24H PO SCH (09:00)
[2018-03-28] MEDS ORDERED: FLUTICASONE/SALMETEROL 250/50 INHALER INH SCH (09:00)
[2018-03-28] MEDS ORDERED: ERGOCALCIFEROL 50,000 UNIT CAPSULE PO SCH (09:00)
[2018-03-28] MEDS ORDERED: VENLAFAXINE 25 MG TABLET PO SCH ×2 (09:00)
[2018-03-28 11:28] VITALS: BP 104/51
[2018-03-28] MEDS: predniSONE 20 MG TABLET PO SCH (12:13)
[2018-03-28] MEDS: MAGNESIUM SULFATE/D5W 100 ML IV SCH ×2 (12:13→13:35)
--- NOTE | 2018-03-28 12:15 | NUR ---
MAGNESSIUM LEVEL IS 1.6 WITH ORDERS FOR REPLACEMENTS AND NOTED.
[2018-03-28] MEDS: CEFTRIAXONE 1 G in IV DEXTROSE 5% 50 ML IV SCH (14:41)
[2018-03-28] MEDS: AZITHROMYCIN IV 500 MG in IV DEXTROSE 5% 250 ML IV SCH (15:10)
[2018-03-28] MEDS ORDERED: VENL75CA56 PO (15:27)
[2018-03-28 15:39] VITALS: BP 111/49
[2018-03-28] MEDS: VENLAFAXINE XR 75 MG CAP.SR.24H PO SCH (16:16)
--- NOTE | 2018-03-28 16:59 | NUR ---
REMAIN ON IV ATB ORDERED WITH NO ADVERSE OR ALLERGIC REACTIONS AT THIS TIME AFEBRILE MADE COMFORTABLE WILL CONTINUE TO OBSERVE.
[2018-03-28] MEDS: ALBUTEROL SULFATE 2.5 MG/ 0.5 ML NEBU NEB PRN (17:30)
[2018-03-28] MEDS: IPRATROPIUM BROMIDE 0.5 MG/2.5 ML NEBU NEB PRN (17:30)
--- NOTE | 2018-03-28 17:51 | NUR ---
PATIENT IS HAVING DIFFICULTY BREATHING WITH WHEEZES RESPIRATORY THERAPIST NOTIFIED AND BREATHING TREATMENT GIVEN O2 APPLIES AT THIS TIME PATIENT MADE COMFORTABLE AND WILL CONTINUE TO OBSERVE.
--- NOTE | 2018-03-28 18:22 | NUR ---
RESTING BETTER AT THIS TIME WAS ASSISTED TO THE BATHROOM AND VOIDED
--- NOTE | 2018-03-28 19:30 | NUR ---
RECEIVED PATIENT IN BED AWAKE, NO SOB NO CHEST PAIN, TELE MONITOR SINUS RHYTHM, ON OXYGEN AT 2LPM DUE EPISODES OF ASTHMA AND DIFFICULTY BREATHING, RECEIVED HHN TX FOR ASTHMA, ASSISTED WITH TOILETING, CONT TO MONITOR.
[2018-03-28] MEDS: MONTELUKAST SODIUM 10 MG TABLET PO SCH (20:08)
[2018-03-28] MEDS: DOCUSATE SODIUM 100 MG CAPSULE PO SCH (20:08)
[2018-03-28] MEDS: ATORVASTATIN 10 MG TABLET PO SCH (20:08)
[2018-03-28 20:18] VITALS: BP 100/51
[2018-03-29] VITALS: BP 110/52
[2018-03-29 04:00] VITALS: BP 133/56
[2018-03-29] MEDS: SUCRALFATE 1 G TABLET PO SCH ×3 (05:44→16:11)
[2018-03-29] MEDS: hydrALAZINE HCL 50 MG TABLET PO SCH ×3 (05:44→21:28)
[2018-03-29] MEDS: PANTOPRAZOLE SODIUM 40 MG TABLET.DR PO SCH ×2 (05:44→16:11)
--- NOTE | 2018-03-29 05:57 | NUR ---
PATIENT SLEPT MOST OF THE NIGHT, NO SOB NO CHEST PAIN NOTED, TELE MONITOR. SINUS RHYTHM 68 AT THIS TIME. NO COMPLAIN OF PAIN NOR DISCOMFORT. ASSISTED WITH TOILETING, KEPT CLEAN DRY AND COMFORTABLE. CALL LIGHT WITHIN REACH.
[2018-03-29 06:35] LABS: BASOPHILS % (AUTO) 0.1 % (0.0-2.0); EOSINOPHILS % (AUTO) 0.1 % (0.0-7.0); HEMATOCRIT 31.1 % (31.2-41.9); HEMOGLOBIN 10.3 g/dL (10.9-14.3); LYMPHOCYTES # (AUTO) 1.5 K/uL (20.0-40.0); LYMPHOCYTES % (AUTO) 13.6 % (20.5-51.5); MEAN CORPUSCULAR HEMOGLOBIN 28.4 uug (24.7-32.8); MEAN CORPUSCULAR HGB CONC 33 g/dL (32.3-35.6); MEAN CORPUSCULAR VOLUME 85.6 fL (75.5-95.3); NEUTROPHILS # (AUTO) 8.3 K/uL (1.8-8.9); NEUTROPHILS % (AUTO) 77.2 % (38.5-71.5); PLATELET COUNT (AUTO) 390 K/uL (179-408); RED BLOOD CELL COUNT(AUTO) 3.63 MIL/uL (3.63-4.92); WHITE BLOOD COUNT (AUTO) 10.7 K/uL (3.8-11.8)
[2018-03-29 06:58] LABS: CARBON DIOXIDE 25 mmol/L (21-32); CHLORIDE 96 mmol/L (98-107); CREATININE 1.1 mg/dL (0.6-1.3); GLUCOSE 119 mg/dL (74-106); MAGNESIUM 2.2 mg/dL (1.8-2.4); PHOSPHOROUS 3.3 mg/dL (2.5-4.9); POTASSIUM 4.6 mmol/L (3.5-5.1); UREA NITROGEN, BLOOD 24 mg/dL (7-18)
[2018-03-29] MEDS: IPRATROPIUM BROMIDE 0.5 MG/2.5 ML NEBU NEB PRN (07:39)
[2018-03-29] MEDS: ALBUTEROL SULFATE 2.5 MG/ 0.5 ML NEBU NEB PRN ×2 (07:39→11:18)
--- NOTE | 2018-03-29 07:58 | NUR ---
PATIENT IS AWAKE ALERT AND VERBALLY RESPONSIVE WITH O2 AT 2L/M BY NASAL CANULA WITH NO WHEEZES OR SHORTNESS OF BREATH AT THIS TIME REMAIN ON ATB WITH NO ADVERSE OR ALLERGIC REACTIONS AT THIS TIME.CALL LIGHTS AND PERSONAL BELONGINGS ARE WITHIN EASY REACH AT THIS TIME WILL CONTINUE TO OBSERVE PT.
[2018-03-29] MEDS: CALCIUM CARB/VITAMIN D 500MG-200UNITS TABLET PO SCH ×2 (08:34→16:11)
[2018-03-29] MEDS: OXYBUTYNIN CHLORIDE 5 MG TABLET PO SCH ×2 (08:34→20:19)
[2018-03-29] MEDS: SPIRONOLACTONE 50 MG TABLET PO SCH (08:34)
[2018-03-29] MEDS: CLOPIDOGREL 75 MG TABLET PO SCH (08:34)
[2018-03-29] MEDS: VENLAFAXINE XR 75 MG CAP.SR.24H PO SCH (08:35)
[2018-03-29] MEDS: predniSONE 20 MG TABLET PO SCH (08:35)
[2018-03-29] MEDS: MECLIZINE HCL 25 MG TABLET PO SCH ×3 (08:35→16:11)
[2018-03-29] MEDS: QUETIAPINE FUMARATE 25 MG TABLET PO SCH ×2 (08:35→20:19)
[2018-03-29] MEDS: FLUTICASONE/VILANTEROL 1 EACH BLST.W.DEV INH SCH (08:38)
[2018-03-29] MEDS: FLUTICASONE PROP NASAL SPRAY 16 GM BOTTLE NS SCH ×2 (08:39→16:11)
[2018-03-29] MEDS: CICLOPIROX 0.77% CREAM 30 GM TUBE TP SCH ×2 (08:40→16:12)
[2018-03-29] MEDS: LOSARTAN POTASSIUM 50 MG TABLET PO SCH (08:41)
[2018-03-29] MEDS: AMLODIPINE 5 MG TABLET PO SCH (08:41)
--- NOTE | 2018-03-29 10:46 | NUR ---
IV SITE INFILTERATED UNABLE TO RESTART AFTER SO MANY ATTEMPTS MD AWARE WITH ORDER TO INSERT MID LINE NURSING BRIQUETTE MAKER AWARE AND THE MID LINE NURSE NOTIFIED.
--- NOTE | 2018-03-29 11:10 | NUR ---
DR PENNY HERE TO SEE PATIENT AWARE OF RECENT WHEEZES AND PATIENT REQUIRING HAND HELD NEBULIZERS MORE FREQUENTLY WITH NEW ORDERS AND NOTED.
--- NOTE | 2018-03-29 11:13 | NUR ---
MID LINE INSERTED TO HER RIGHT UPPER ARM GAUGE 18 PATIENT TOLERATED PROCEDURE WELL
[2018-03-29] MEDS ORDERED: IPRATROPIUM BROMIDE 0.5 MG/2.5 ML NEBU NEB PRN (11:15)
[2018-03-29] MEDS ORDERED: ALBUTEROL SULFATE 2.5 MG/ 0.5 ML NEBU NEB PRN (11:27)
[2018-03-29 11:52] VITALS: BP 121/50
[2018-03-29] MEDS: methylPREDNISolone SOD SUCC 40 MG/ML VIAL IV SCH ×2 (13:31→21:28)
[2018-03-29] MEDS: IPRATROPIUM BROMIDE 0.5 MG/2.5 ML NEBU NEB SCH ×2 (14:48→19:31)
[2018-03-29] MEDS: ALBUTEROL SULFATE 2.5 MG/ 0.5 ML NEBU NEB SCH ×2 (14:49→19:31)
[2018-03-29] MEDS: CEFTRIAXONE 1 G in IV DEXTROSE 5% 50 ML IV SCH (15:17)
[2018-03-29] MEDS: AZITHROMYCIN IV 500 MG in IV DEXTROSE 5% 250 ML IV SCH (15:53)
[2018-03-29 16:00] VITALS: BP 113/59
--- NOTE | 2018-03-29 17:14 | NUR ---
CONTINUE ON ATB ORDERED WITH NO ADVERSE OR ALLERGIC REACTIONS MID LINE IS INTACT AND PATIENT STILL HAS EPISODES OF WHEEZING O2 IN PROGRESS HAS SOBE MADE COMFORTABLE.
--- NOTE | 2018-03-29 19:30 | NUR ---
RECEIVED PATIENT IN BED AWAKE AND ALERT. NO COMPLAINTS OF PAIN OR SOB. O2 AT 2L. NO SIGNS OF ACUTE DISTRESS. SAFETY MEASURES GIVEN. BED IS LOW AND LOCKED, CALL LIGHT IS WITHIN REACH. WILL CONTINUE TO MONITOR.
[2018-03-29 20:05] VITALS: BP 115/61
[2018-03-29] MEDS: MONTELUKAST SODIUM 10 MG TABLET PO SCH (20:19)
[2018-03-29] MEDS: DOCUSATE SODIUM 100 MG CAPSULE PO SCH (20:19)
[2018-03-29] MEDS: ATORVASTATIN 10 MG TABLET PO SCH (20:19)
[2018-03-30] MEDS: ALBUTEROL SULFATE 2.5 MG/ 0.5 ML NEBU NEB SCH ×4 (01:18→19:24)
[2018-03-30] MEDS: IPRATROPIUM BROMIDE 0.5 MG/2.5 ML NEBU NEB SCH ×4 (01:18→19:24)
[2018-03-30] MEDS: hydrALAZINE HCL 50 MG TABLET PO SCH ×2 (05:48→13:55)
[2018-03-30] MEDS: methylPREDNISolone SOD SUCC 40 MG/ML VIAL IV SCH (05:49)
[2018-03-30 06:00] VITALS: BP 125/72
[2018-03-30 06:28] LABS: BASOPHILS % (AUTO) 0.1 % (0.0-2.0); HEMATOCRIT 29.7 % (31.2-41.9); HEMOGLOBIN 10.3 g/dL (10.9-14.3); LYMPHOCYTES # (AUTO) 0.9 K/uL (20.0-40.0); LYMPHOCYTES % (AUTO) 9.4 % (20.5-51.5); MEAN CORPUSCULAR HEMOGLOBIN 29.2 uug (24.7-32.8); MEAN CORPUSCULAR HGB CONC 35 g/dL (32.3-35.6); MEAN CORPUSCULAR VOLUME 84.3 fL (75.5-95.3); MONOCYTES # (AUTO) 0.7 K/uL (2.0-10.0); MONOCYTES % (AUTO) 7.4 % (0.0-11.0); NEUTROPHILS # (AUTO) 7.5 K/uL (1.8-8.9); NEUTROPHILS % (AUTO) 83.1 % (38.5-71.5); PLATELET COUNT (AUTO) 392 K/uL (179-408); RED BLOOD CELL COUNT(AUTO) 3.53 MIL/uL (3.63-4.92); WHITE BLOOD COUNT (AUTO) 9.1 K/uL (3.8-11.8)
[2018-03-30] MEDS: SUCRALFATE 1 G TABLET PO SCH ×3 (06:30→17:51)
[2018-03-30] MEDS: PANTOPRAZOLE SODIUM 40 MG TABLET.DR PO SCH ×2 (06:30→17:47)
[2018-03-30 06:41] LABS: ALANINE AMINOTRANSFERASE 16 U/L (14-59); ALKALINE PHOSPHATASE 79 U/L (50-136); ASPARTATE AMINOTRANSFERASE 15 U/L (15-37); BILIRUBIN,TOTAL 0.1 mg/dL (0.2-1.0); CARBON DIOXIDE 25 mmol/L (21-32); CHLORIDE 91 mmol/L (98-107); CREATININE 1.1 mg/dL (0.6-1.3); GLUCOSE 158 mg/dL (74-106); MAGNESIUM 1.9 mg/dL (1.8-2.4); POTASSIUM 4.8 mmol/L (3.5-5.1); TOTAL PROTEIN, SERUM 6.1 g/dL (6.4-8.2); UREA NITROGEN, BLOOD 22 mg/dL (7-18)
[2018-03-30] MEDS: SPIRONOLACTONE 50 MG TABLET PO SCH (09:00)
[2018-03-30] MEDS: AMLODIPINE 5 MG TABLET PO SCH (09:00)
[2018-03-30] MEDS: VENLAFAXINE XR 75 MG CAP.SR.24H PO SCH (09:00)
[2018-03-30] MEDS: QUETIAPINE FUMARATE 25 MG TABLET PO SCH ×2 (09:00→20:54)
[2018-03-30] MEDS: LOSARTAN POTASSIUM 50 MG TABLET PO SCH (09:00)
--- NOTE | 2018-03-30 09:00 | NUR ---
PATIENT ASSISTED WITH ADLS THIS AM, TO TOILET, NOTED SOB ON EXERTION HOWEVER REMAINS STABLE, NO ALTERED MENTAL STATUS, ABLE TO ASSIST BACK TO BED, REMAINS ON OXYGEN 1LITER. CONTINUE TO MONITOR
[2018-03-30 09:24] VITALS: BP 107/46
[2018-03-30] MEDS: CALCIUM CARB/VITAMIN D 500MG-200UNITS TABLET PO SCH ×2 (09:40→17:47)
[2018-03-30] MEDS: CLOPIDOGREL 75 MG TABLET PO SCH (09:40)
[2018-03-30] MEDS: OXYBUTYNIN CHLORIDE 5 MG TABLET PO SCH ×2 (09:40→20:58)
[2018-03-30] MEDS: MECLIZINE HCL 25 MG TABLET PO SCH ×3 (09:41→17:47)
[2018-03-30] MEDS: CICLOPIROX 0.77% CREAM 30 GM TUBE TP SCH ×2 (09:42→17:48)
[2018-03-30] MEDS: FLUTICASONE/VILANTEROL 1 EACH BLST.W.DEV INH SCH (10:31)
[2018-03-30] MEDS: FLUTICASONE PROP NASAL SPRAY 16 GM BOTTLE NS SCH ×2 (10:31→17:47)
--- NOTE | 2018-03-30 11:21 | NUR ---
DR. AVALOS ROUNDING ON PT, NOTIFIED THAT THE PATIENT IS CURRENTLY ON TWO STEROIDS, PO PREDNISONE AND IV SOLUMEDROL. PER MD, HE WILL TAKE CARE OF ORDERS. NO ORDERS RECEIVED AT THIS MOMENT.
[2018-03-30] MEDS: predniSONE 20 MG TABLET PO SCH (11:23)
[2018-03-30 11:48] VITALS: BP 114/60
[2018-03-30 13:54] VITALS: BP 102/54
[2018-03-30] MEDS: CEFTRIAXONE 1 G in IV DEXTROSE 5% 50 ML IV SCH (15:28)
--- NOTE | 2018-03-30 15:30 | NUR ---
DISCUSSED WITH EMERGENCY ROOM CLINICIAN DR DELEON, PATIENT WITH MULTIPLE MEDS THIS AM, PATIENT WITH LOW BLOOD PRESSURE UNABLE TO BE SAFELY ADMINISTERED, PATIENT MOSTLY LYING IN BED CONCERNS FOR HYPOTENSIVE EPISODES ONCE AMBULATING, MD TO REVIEW MEDS.
[2018-03-30 15:47] VITALS: BP 108/50
[2018-03-30] MEDS: AZITHROMYCIN 250 MG TABLET PO SCH (17:52)
--- NOTE | 2018-03-30 18:56 | NUR ---
PATIENT REMAINS ALERT AND ORIENTED TO PERSON PLACE AND PARTIALLY TIME, ABLE TO VERBALIZE NEEDS, CONTINUES WITH NOTED SOB ON EXERTION, HOWEVER CONTROLLED WITH REST AND OXYGEN THERAPY, BREATHING TREATMENTS, PATIENT WITH CALL LIGHT WITHIN REACH SIDE RAILS X2, ALL NEEDS ATTENDED TO
--- NOTE | 2018-03-30 19:40 | NUR ---
RECEIVED PATIENT IN BED, NO SOB NO CHEST PAIN NOTED, NO COMPLAIN OF PAIN AT THIS TIME, ASSISTED WITH TOILETING AT THIS TIME. PATIENT IN ON OXYGEN 1LPM FOR ASSIST. PATIENT RESPIRATION EVEN AND UNLABORED, NO DESATURATION NOTED, CONT ON HHN TX ORDERED, NO EPISODES OF CONGESTION NOTED, NOR SOB AT THIS TIME. CALL LIGHT WITHIN REACH.
[2018-03-30 19:49] VITALS: BP 135/60
[2018-03-30] MEDS: ATORVASTATIN 10 MG TABLET PO SCH (20:11)
[2018-03-30] MEDS: MONTELUKAST SODIUM 10 MG TABLET PO SCH ×2 (20:11→20:54)
[2018-03-30] MEDS: DOCUSATE SODIUM 100 MG CAPSULE PO SCH (20:17)
[2018-03-31] MEDS: IPRATROPIUM BROMIDE 0.5 MG/2.5 ML NEBU NEB SCH ×3 (00:41→13:25)
[2018-03-31] MEDS: ALBUTEROL SULFATE 2.5 MG/ 0.5 ML NEBU NEB SCH ×3 (00:41→13:25)
[2018-03-31 04:59] VITALS: BP 133/69
[2018-03-31] MEDS: PANTOPRAZOLE SODIUM 40 MG TABLET.DR PO SCH ×2 (06:11→16:07)
[2018-03-31] MEDS: SUCRALFATE 1 G TABLET PO SCH ×3 (06:12→16:07)
[2018-03-31] MEDS: predniSONE 20 MG TABLET PO SCH (08:38)
[2018-03-31] MEDS: FLUTICASONE/VILANTEROL 1 EACH BLST.W.DEV INH SCH (08:38)
[2018-03-31] MEDS: CALCIUM CARB/VITAMIN D 500MG-200UNITS TABLET PO SCH ×2 (08:38→16:07)
[2018-03-31] MEDS: OXYBUTYNIN CHLORIDE 5 MG TABLET PO SCH (08:38)
[2018-03-31] MEDS: FLUTICASONE PROP NASAL SPRAY 16 GM BOTTLE NS SCH ×2 (08:38→16:10)
[2018-03-31] MEDS: QUETIAPINE FUMARATE 25 MG TABLET PO SCH (08:39)
[2018-03-31] MEDS: CLOPIDOGREL 75 MG TABLET PO SCH (08:39)
[2018-03-31] MEDS: MECLIZINE HCL 25 MG TABLET PO SCH ×3 (08:39→16:07)
[2018-03-31] MEDS: VENLAFAXINE XR 75 MG CAP.SR.24H PO SCH (08:39)
[2018-03-31] MEDS: CICLOPIROX 0.77% CREAM 30 GM TUBE TP SCH ×2 (08:39→16:10)
--- NOTE | 2018-03-31 09:00 | NUR ---
Received patient awake, alert x 2. Not in any form of distress. No SOB noted, no chest pains and denies any pain at the moment. With O2 at 2LPM per nasal cannula, sating well. With intact and patent right upper arm midline. No S/S of infection noted.
[2018-03-31 11:24] VITALS: BP 110/58
[2018-03-31 14:38] VITALS: BP 109/40
[2018-03-31] MEDS: CEFTRIAXONE 1 G in IV DEXTROSE 5% 50 ML IV SCH (15:09)
[2018-03-31] MEDS ORDERED: METOPROLOL TARTRATE 25 MG TABLET PO SCH (15:30)
[2018-03-31 15:53] VITALS: BP 109/49
[2018-03-31] MEDS: AZITHROMYCIN 250 MG TABLET PO SCH (16:07)
--- NOTE | 2018-03-31 17:45 | NUR ---
O2 tapered tolerating well at 1LPM/ NC. Report given to ARU RN. Routine discharge care done. Health education and discharge packet given to patient. Explained to patient that she will be discharge to ARU for now. Discharge to ARU per wheelchair, in stable condition with intact right upper arm midline.
[2018-03-31] MEDS ORDERED: ALBU1.25 NEB (20:10)
[2018-03-31] MEDS ORDERED: FLUT1BLS IH (20:10)
[2018-03-31] MEDS ORDERED: METO25TA6 PO (20:10)
[2018-03-31] MEDS ORDERED: AZIT500T PO (20:10)
[2018-03-31] MEDS ORDERED: IPRA0.2S6 NEB (20:10)
[2018-03-31] MEDS ORDERED: ERGO500040 PO (20:10)
[2018-03-31] MEDS ORDERED: SUCR1TAB PO (20:10)
[2018-03-31] MEDS ORDERED: OXYB5TAB11 PO (20:10)
== END 2018-03-31 16:00 | DRG 871 ==
LOC: ER 13:30 → TELE 16:19 → MED 03-29 20:30
PROVIDERS: ADMIT Internal Medicine; ATTEND Internal Medicine Nephrology
PROC: 05HY33Z Insertion of Infusion Device into Upper Vein, Percutaneous Approach (ICD-10-PCS; principal; 2018-03-29)
DX: A41.9 Sepsis, unspecified organism (principal); J18.9 Pneumonia, unspecified organism; J44.0 Chronic obstructive pulmonary disease with (acute) lower respiratory infection; J44.1 Chronic obstructive pulmonary disease with (acute) exacerbation; I13.0 Hypertensive heart and chronic kidney disease with heart failure and stage 1 through stage 4 chronic kidney disease, or unspecified chronic kidney disease; I50.32 Chronic diastolic (congestive) heart failure; E87.2 Acidosis; E22.2 Syndrome of inappropriate secretion of antidiuretic hormone; J20.9 Acute bronchitis, unspecified; R06.03 Acute respiratory distress; R53.81 Other malaise; E11.22 Type 2 diabetes mellitus with diabetic chronic kidney disease; E11.65 Type 2 diabetes mellitus with hyperglycemia; N18.9 Chronic kidney disease, unspecified; Z79.02 Long term (current) use of antithrombotics/antiplatelets; K21.9 Gastro-esophageal reflux disease without esophagitis; Z79.51 Long term (current) use of inhaled steroids; Z79.899 Other long term (current) drug therapy; M19.90 Unspecified osteoarthritis, unspecified site; F03.90 Unspecified dementia, unspecified severity, without behavioral disturbance, psychotic disturbance, mood disturbance, and anxiety; E78.5 Hyperlipidemia, unspecified; I25.2 Old myocardial infarction; D64.9 Anemia, unspecified
CPT/HCPCS: 36415; 36569; 70030-TC; 71045; 83605; 83735; 84100; 85025; 85730; 87040; 87086; 93005; 94640; 97110; 97116; 97530; A4663; G0378; J0456; J0696; J1100; J2920; J3475; J3535; J3590; J7030; J7060; J7512; J8597; Q0144

== ENCOUNTER 2018-03-31 12:06 | Inpatient (IN) | payer MEDICARE, MEDICAID ==
[~2018-03-31] VITALS: Ht 149.9 cm; Wt 61.7 kg
[~2018-03-31 12:06] MED LIST changes: +AMLO5TAB4 PO; +CALC-995 PO; +CHOL500050 PO; +ERYT-113 PO; +FLUT16SP NS; -FURO20TA4 PO; -IPRA4AER IH; -LACT10SO PO; -LOPE1LIQ56 PO; +LOPE2TAB57 PO; -LOSA100T3 PO; +LOSA100T31 PO; -METO-356 PO; +METO-357 PO; +MONT10TA22 PO; -MONT10TA25 PO; -NITR0.4T SL; +NITR0.4T48 SL; -PRED20TA PO; +QUET25TA PO; +QUET50TA PO; -SODI100037 PO; +SOLI5TAB2 PO; +VENL75CA56 PO; -VENL75TA4 PO
[2018-03-31 20:00] VITALS: BP 162/62
[2018-03-31] MEDS ORDERED: FLUT1BLS IH (20:10)
[2018-03-31] MEDS ORDERED: ERGO500040 PO (20:10)
[2018-03-31] MEDS ORDERED: OXYB5TAB11 PO (20:10)
[2018-03-31] MEDS ORDERED: ALBU1.25 NEB (20:10)
[2018-03-31] MEDS ORDERED: AZIT500T PO (20:10)
[2018-03-31] MEDS ORDERED: SUCR1TAB PO (20:10)
[2018-03-31] MEDS ORDERED: IPRA0.2S6 NEB (20:10)
[2018-03-31] MEDS ORDERED: METO25TA6 PO (20:10)
[2018-03-31] MEDS ORDERED: NITROGLYCERIN 0.4 MG/TAB BOTTLE SL PRN (20:45)
[2018-03-31] MEDS ORDERED: LOPERAMIDE HCL 2 MG PO PRN (20:45)
[2018-03-31] MEDS ORDERED: Medication Not On Formulary EA (Quetiapine Fumarate (Seroquel) 50 MG) PO SCH (21:00)
[2018-03-31] MEDS ORDERED: LOPERAMIDE HCL 2 MG CAPSULE PO PRN (21:30)
[2018-03-31] MEDS: MONTELUKAST SODIUM 10 MG TABLET PO SCH (21:44)
[2018-03-31] MEDS: DOCUSATE SODIUM 100 MG CAPSULE PO SCH (21:44)
[2018-03-31] MEDS: OXYBUTYNIN CHLORIDE 5 MG TABLET PO SCH (21:44)
[2018-03-31] MEDS: QUETIAPINE FUMARATE 25 MG TABLET PO SCH (21:44)
[2018-03-31] MEDS: METOPROLOL TARTRATE 25 MG TABLET PO SCH (21:45)
[2018-03-31] MEDS: ATORVASTATIN 10 MG TABLET PO SCH (21:45)
[2018-03-31] MEDS: TEMAZEPAM 15 MG CAPSULE PO PRN (23:05)
[2018-03-31 23:16] VITALS: BP 143/70
--- NOTE | 2018-04-01 00:14 | NUR ---
Received pt resting in bed and watching TV. AAO x3. Slovak speaking, able to make needs known. Oriented pt to the unit and equipment in the room. Pertinent assessment done. MRSA swab sent to the lab. Med recon done by Dr. Rader. No redness on buttocks/ sacrum noted. Both heels have dryness. Offloaded both heels. Pt has ELIF midline, patent and intact. All due meds given as ordered. Assisted pt to the bathroom using her walker, x1 assist. Voided x2 and BM x1. Safety measures maintained. Call light and personal belongings within reach. Will continue to monitor.
[2018-04-01] MEDS: IPRATROPIUM BROMIDE 0.5 MG/2.5 ML NEBU NEB SCH ×4 (02:30→19:14)
[2018-04-01] MEDS: ALBUTEROL SULFATE 1.25 MG/3 ML NEBU NEB SCH ×4 (02:33→19:14)
[2018-04-01 04:00] VITALS: BP 138/63
[2018-04-01] MEDS: PANTOPRAZOLE SODIUM 40 MG TABLET.DR PO SCH ×2 (06:09→16:31)
[2018-04-01] MEDS: SUCRALFATE 1 G TABLET PO SCH ×3 (06:33→16:31)
--- NOTE | 2018-04-01 08:10 | NUR ---
Received patient, awake, alert x3. On O2 1LPM per NC. Not in any form of distress. No pain noted. No SOB or chest pains noted.
[2018-04-01] MEDS: QUETIAPINE FUMARATE 25 MG TABLET PO SCH ×2 (08:55→20:17)
[2018-04-01] MEDS: CLOPIDOGREL 75 MG TABLET PO SCH (08:55)
[2018-04-01] MEDS: CICLOPIROX 0.77% CREAM 30 GM TUBE TP SCH ×2 (08:55→16:31)
[2018-04-01] MEDS: FLUTICASONE PROP NASAL SPRAY 16 GM BOTTLE NS SCH ×2 (08:55→16:31)
[2018-04-01] MEDS: VENLAFAXINE XR 75 MG CAP.SR.24H PO SCH (08:55)
[2018-04-01] MEDS: OXYBUTYNIN CHLORIDE 5 MG TABLET PO SCH ×2 (08:55→20:17)
[2018-04-01] MEDS: predniSONE 10 MG TABLET PO SCH (08:55)
[2018-04-01] MEDS: FLUTICASONE/VILANTEROL 1 EACH BLST.W.DEV IH SCH (08:55)
[2018-04-01] MEDS: MECLIZINE HCL 25 MG TABLET PO SCH ×3 (08:56→16:31)
[2018-04-01] MEDS: METOPROLOL TARTRATE 25 MG TABLET PO SCH ×2 (08:57→20:17)
[2018-04-01 09:00] VITALS: BP 153/58
[2018-04-01] MEDS ORDERED: AZITHROMYCIN 500 MG PO SCH (09:00)
[2018-04-01] MEDS: CALCIUM CARB/VITAMIN D 500MG-200UNITS TABLET PO SCH ×2 (09:06→16:31)
--- NOTE | 2018-04-01 11:00 | NUR ---
Up with physical therapy, oral care done, morning care done. Tolerating well.
--- NOTE | 2018-04-01 13:34 | NUR ---
INTERDISCIPLINARY TEAM CONFERENCE
--- NOTE | 2018-04-01 15:48 | NUR ---
Per speech therapy, patient would need to have video swallow tomorrow and informed Dr Tovar that her GERD may have affected her swallowing. Dr Tovar ordered GI consult.
[2018-04-01 15:52] VITALS: BP 135/55
--- NOTE | 2018-04-01 15:58 | NUR ---
Paged GI director of land acquisition Dr. Quijano for consult, still awaiting for call back.
--- NOTE | 2018-04-01 16:17 | NUR ---
Dr Quijano called back, made aware of consult. said he will see patient tomorrow.
[2018-04-01] MEDS: AZITHROMYCIN 250 MG TABLET PO SCH (16:31)
[2018-04-01 20:06] VITALS: BP 138/55
[2018-04-01] MEDS: DOCUSATE SODIUM 100 MG CAPSULE PO SCH (20:16)
[2018-04-01] MEDS: ATORVASTATIN 10 MG TABLET PO SCH (20:17)
[2018-04-01] MEDS: MONTELUKAST SODIUM 10 MG TABLET PO SCH (20:17)
--- NOTE | 2018-04-01 21:01 | NUR ---
Received pt resting in bed and receiving her breathing treatment. AAO x3-4, Telugu speaking, able to make needs known. On 0.5LPM O2 via NC at 98%. No acute distress noted. No c/o pain or discomfort. Meds given with apple sauce, tolerated well. Safety measures maintained. Call light and personal belongings within reach. Will continue to monitor.
[2018-04-01 21:28] VITALS: BP 112/61
[2018-04-01] MEDS: LOSARTAN POTASSIUM 50 MG TABLET PO SCH (21:30)
[2018-04-01] MEDS: TEMAZEPAM 15 MG CAPSULE PO PRN (21:30)
[2018-04-02] MEDS: ALBUTEROL SULFATE 1.25 MG/3 ML NEBU NEB SCH ×4 (00:30→19:53)
[2018-04-02] MEDS: IPRATROPIUM BROMIDE 0.5 MG/2.5 ML NEBU NEB SCH ×4 (00:30→19:53)
[2018-04-02 05:26] VITALS: BP 149/54
[2018-04-02] MEDS: PANTOPRAZOLE SODIUM 40 MG TABLET.DR PO SCH ×2 (06:08→16:53)
[2018-04-02] MEDS: SUCRALFATE 1 G TABLET PO SCH ×3 (06:30→16:52)
--- NOTE | 2018-04-02 06:31 | NUR ---
Pt slept comfortably at night. Assisted to the bathroom as needed. All due meds given as ordered. All needs attended to promptly. Offloaded both heels. Pt turned and repositioned independently, but was monitored during hourly rounding to reinforce prevention of pressure sores. Will endorse to oncoming shift. Continue to monitor.
[2018-04-02] MEDS: CLOPIDOGREL 75 MG TABLET PO SCH (08:20)
[2018-04-02] MEDS: QUETIAPINE FUMARATE 25 MG TABLET PO SCH ×2 (08:20→20:33)
[2018-04-02] MEDS: MECLIZINE HCL 25 MG TABLET PO SCH ×3 (08:23→16:53)
[2018-04-02] MEDS: LOSARTAN POTASSIUM 50 MG TABLET PO SCH ×2 (08:23→21:36)
[2018-04-02] MEDS: METOPROLOL TARTRATE 25 MG TABLET PO SCH ×2 (08:23→20:33)
[2018-04-02] MEDS: VENLAFAXINE XR 75 MG CAP.SR.24H PO SCH (08:23)
[2018-04-02] MEDS: CALCIUM CARB/VITAMIN D 500MG-200UNITS TABLET PO SCH ×2 (08:23→16:52)
[2018-04-02] MEDS: OXYBUTYNIN CHLORIDE 5 MG TABLET PO SCH ×2 (08:23→20:33)
[2018-04-02] MEDS: predniSONE 10 MG TABLET PO SCH (08:24)
[2018-04-02] MEDS: FLUTICASONE PROP NASAL SPRAY 16 GM BOTTLE NS SCH ×2 (08:25→16:53)
[2018-04-02] MEDS: FLUTICASONE/VILANTEROL 1 EACH BLST.W.DEV IH SCH (08:25)
[2018-04-02] MEDS: CICLOPIROX 0.77% CREAM 30 GM TUBE TP SCH ×2 (08:25→16:53)
[2018-04-02 08:52] VITALS: BP 151/65
--- NOTE | 2018-04-02 14:06 | NUR ---
Patient continue breathing treatment for COPD. Continue oxygen via nasal cannula at 0.5LPM with good effect. not in distress. Continue participate with therapy for transfer and ADL activity. will continue monitor
[2018-04-02] MEDS: AZITHROMYCIN 250 MG TABLET PO SCH (16:52)
[2018-04-02 19:30] VITALS: BP 129/56
[2018-04-02] MEDS: DOCUSATE SODIUM 100 MG CAPSULE PO SCH (20:32)
[2018-04-02] MEDS: ATORVASTATIN 10 MG TABLET PO SCH (20:32)
[2018-04-02] MEDS: MONTELUKAST SODIUM 10 MG TABLET PO SCH (20:33)
[2018-04-02 21:30] VITALS: BP 138/61
[2018-04-02] MEDS: TEMAZEPAM 15 MG CAPSULE PO PRN (21:37)
--- NOTE | 2018-04-02 22:19 | NUR ---
Received pt resting in bed and watching TV. AAO x3-4. Congolese speaking, able to make needs known. On 0.5LPM O2 via NC, no acute distress noted. Pt received her breathing treatment. No c/o pain or discomfort. All due meds given as ordered. Assisted to the bathroom using walker, x1 assist, unsteady. Safety measures maintained. Call light and personal belongings within reach. Will continue to monitor.
[2018-04-03] MEDS: ALBUTEROL SULFATE 1.25 MG/3 ML NEBU NEB SCH ×4 (00:30→18:56)
[2018-04-03] MEDS: IPRATROPIUM BROMIDE 0.5 MG/2.5 ML NEBU NEB SCH ×4 (00:30→18:55)
[2018-04-03 04:45] VITALS: BP 146/62
[2018-04-03] MEDS: PANTOPRAZOLE SODIUM 40 MG TABLET.DR PO SCH ×2 (06:08→17:14)
[2018-04-03] MEDS: SUCRALFATE 1 G TABLET PO SCH ×3 (06:30→17:16)
[2018-04-03 07:00] VITALS: BP 129/53
[2018-04-03 07:07] LABS: CARBON DIOXIDE 31 mmol/L (21-32); CHLORIDE 89 mmol/L (98-107); CREATININE 0.9 mg/dL (0.6-1.3); GLUCOSE 86 mg/dL (74-106); MAGNESIUM 1.7 mg/dL (1.8-2.4); PHOSPHOROUS 3.6 mg/dL (2.5-4.9); POTASSIUM 4.3 mmol/L (3.5-5.1); UREA NITROGEN, BLOOD 22 mg/dL (7-18)
[2018-04-03 07:20] LABS: BASOPHILS % (AUTO) 0.1 % (0.0-2.0); EOSINOPHILS # (AUTO) 0.2 K/uL (0.0-0.7); EOSINOPHILS % (AUTO) 1.7 % (0.0-7.0); HEMATOCRIT 31.5 % (31.2-41.9); HEMOGLOBIN 10.8 g/dL (10.9-14.3); LYMPHOCYTES # (AUTO) 2.1 K/uL (20.0-40.0); LYMPHOCYTES % (AUTO) 21.2 % (20.5-51.5); MEAN CORPUSCULAR HEMOGLOBIN 28.6 uug (24.7-32.8); MEAN CORPUSCULAR HGB CONC 34 g/dL (32.3-35.6); MEAN CORPUSCULAR VOLUME 83.3 fL (75.5-95.3); MONOCYTES # (AUTO) 0.9 K/uL (2.0-10.0); MONOCYTES % (AUTO) 9.6 % (0.0-11.0); NEUTROPHILS # (AUTO) 6.6 K/uL (1.8-8.9); NEUTROPHILS % (AUTO) 67.4 % (38.5-71.5); PLATELET COUNT (AUTO) 409 K/uL (179-408); RED BLOOD CELL COUNT(AUTO) 3.78 MIL/uL (3.63-4.92); WHITE BLOOD COUNT (AUTO) 9.7 K/uL (3.8-11.8)
[2018-04-03] MEDS: CLOPIDOGREL 75 MG TABLET PO SCH (08:57)
[2018-04-03] MEDS: LOSARTAN POTASSIUM 50 MG TABLET PO SCH ×2 (08:58→20:30)
[2018-04-03] MEDS: QUETIAPINE FUMARATE 25 MG TABLET PO SCH ×2 (08:58→20:29)
[2018-04-03] MEDS: predniSONE 10 MG TABLET PO SCH (08:59)
[2018-04-03] MEDS: CALCIUM CARB/VITAMIN D 500MG-200UNITS TABLET PO SCH ×2 (08:59→17:15)
[2018-04-03] MEDS: METOPROLOL TARTRATE 25 MG TABLET PO SCH ×2 (08:59→20:30)
[2018-04-03] MEDS: MECLIZINE HCL 25 MG TABLET PO SCH ×3 (09:00→17:14)
[2018-04-03] MEDS: OXYBUTYNIN CHLORIDE 5 MG TABLET PO SCH ×2 (09:00→20:39)
--- NOTE | 2018-04-03 09:00 | NUR ---
Received patient, awake, alert x3. On O2 at 0.5 per NC tolerating sating well. NO SOB or chest pains noted. Not in any form of distress. Denies any pain. Morning care done. Tolerated diet and medications well with apple sauce.
[2018-04-03] MEDS: FLUTICASONE PROP NASAL SPRAY 16 GM BOTTLE NS SCH ×2 (09:01→17:14)
[2018-04-03] MEDS: VENLAFAXINE XR 75 MG CAP.SR.24H PO SCH (09:01)
[2018-04-03] MEDS: CICLOPIROX 0.77% CREAM 30 GM TUBE TP SCH ×2 (09:02→17:16)
[2018-04-03] MEDS: FLUTICASONE/VILANTEROL 1 EACH BLST.W.DEV IH SCH (09:09)
[2018-04-03] MEDS ORDERED: MAGNESIUM HYDROXIDE 30 ML LIQUID UDC PO PRN (11:00)
[2018-04-03] MEDS ORDERED: MAGNESIUM OXIDE 400 MG TABLET PO ONE (11:30)
[2018-04-03] MEDS: DOCUSATE SODIUM 100 MG CAPSULE PO SCH ×3 (11:55→20:41)
--- NOTE | 2018-04-03 12:00 | NUR ---
Seen and examined by Dr Boggs, ordered urine test, Magnesium 400 mg x1 and fluid restrictions at 1,500/day
--- NOTE | 2018-04-03 13:28 | NUR ---
INTERDISCIPLINARY TEAM CONFERENCE
[2018-04-03 16:02] VITALS: BP 121/50
[2018-04-03 16:18] LABS: *CREATININE,URINE 29.2 mg/dL (30-125)
--- NOTE | 2018-04-03 17:00 | NUR ---
Was stable throughout the shift. Denies any pain. No SOB or chest pains. Tolerated diet and medications well. Kept on 1,500 fluid restrictions. Still on O2 at 1lpm.
[2018-04-03 17:37] LABS: *BILIRUBIN,URIN NEGATIVE (NEGATIVE); *BLOOD, URINE NEGATIVE (NEGATIVE); *CLARITY,URINE CLEAR (CLEAR); *COLOR,URINE YELLOW (YELLOW); *KETONES,URINE NEGATIVE (NEGATIVE); *UROBILINOGEN,URINE 0.2 E.U./dl (NORMAL); LEUKOCYTE ESTERASE ,URINE NEGATIVE (NEGATIVE); NITRITE, URINE NEGATIVE (NEGATIVE); PH,URINE 8.5 (5.0-8.0); UGLUCOSE NEGATIVE (NEGATIVE)
[2018-04-03 18:07] LABS: RBC,URINE 0-3 /HPF (0-3); SQUAMOUS EPITHELIAL CELL,UR FEW /HPF (NONE SEEN); WBC,URINE 0-3 /HPF (0-3)
[2018-04-03 20:26] VITALS: BP 119/49
[2018-04-03] MEDS: ATORVASTATIN 10 MG TABLET PO SCH (20:29)
[2018-04-03] MEDS: MONTELUKAST SODIUM 10 MG TABLET PO SCH (20:31)
--- NOTE | 2018-04-03 21:46 | NUR ---
awake upon rounds. alert and oriented x3-4 On continous O2 @ 0.5 L via nasal cannula, pulse Ox 98%. fall precautions maintained. Tolerated po meds well with applesauce. No acute distress noted. VSS. denies any pain nor any discomfort. Patient started on colace 200mg @hs. Patient also have an order of colace 100mg po q12 hours, not given, just took colace 200mg, says its too much. will monitor patient for BM. needs attended. kept comfortable.Respiratory treatments given by therapist.
[2018-04-04] MEDS: ALBUTEROL SULFATE 2.5 MG/ 0.5 ML NEBU NEB SCH ×4 (00:34→18:58)
[2018-04-04] MEDS: IPRATROPIUM BROMIDE 0.5 MG/2.5 ML NEBU NEB SCH ×4 (00:35→18:58)
--- NOTE | 2018-04-04 00:35 | NUR ---
Pt asleep. No respiratory distress noted. HHN tx not given. Nurse Arlen notified.
[2018-04-04 05:17] VITALS: BP 151/74
--- NOTE | 2018-04-04 05:40 | NUR ---
quiet night. no acute distress noted. needs attended. VSS.denies any pain nor any SOB. kept comfortable. will monitor patient. voiding well.
--- NOTE | 2018-04-04 05:43 | NUR ---
respiratory treatment given as scheduled. no respiratory distress noted. On continous O2 @ 0.5 L via nasal cannula.
[2018-04-04] MEDS: PANTOPRAZOLE SODIUM 40 MG TABLET.DR PO SCH ×2 (06:23→16:56)
[2018-04-04] MEDS: SUCRALFATE 1 G TABLET PO SCH ×3 (06:30→16:56)
[2018-04-04 07:24] LABS: CARBON DIOXIDE 30 mmol/L (21-32); CHLORIDE 90 mmol/L (98-107); GLUCOSE 88 mg/dL (74-106); MAGNESIUM 1.9 mg/dL (1.8-2.4); PHOSPHOROUS 3.5 mg/dL (2.5-4.9); POTASSIUM 4.4 mmol/L (3.5-5.1); UREA NITROGEN, BLOOD 21 mg/dL (7-18)
[2018-04-04 07:33] LABS: BASOPHILS % (AUTO) 0.2 % (0.0-2.0); EOSINOPHILS # (AUTO) 0.2 K/uL (0.0-0.7); EOSINOPHILS % (AUTO) 1.6 % (0.0-7.0); HEMATOCRIT 33.1 % (31.2-41.9); HEMOGLOBIN 11.3 g/dL (10.9-14.3); LYMPHOCYTES # (AUTO) 2.4 K/uL (20.0-40.0); LYMPHOCYTES % (AUTO) 24.1 % (20.5-51.5); MEAN CORPUSCULAR HEMOGLOBIN 28.7 uug (24.7-32.8); MEAN CORPUSCULAR HGB CONC 34 g/dL (32.3-35.6); MEAN CORPUSCULAR VOLUME 84.2 fL (75.5-95.3); MONOCYTES % (AUTO) 10.1 % (0.0-11.0); NEUTROPHILS # (AUTO) 6.4 K/uL (1.8-8.9); PLATELET COUNT (AUTO) 423 K/uL (179-408); RED BLOOD CELL COUNT(AUTO) 3.93 MIL/uL (3.63-4.92)
[2018-04-04 08:00] VITALS: BP 150/46
[2018-04-04] MEDS: MECLIZINE HCL 25 MG TABLET PO SCH ×3 (08:13→16:56)
[2018-04-04] MEDS: CLOPIDOGREL 75 MG TABLET PO SCH (08:13)
[2018-04-04] MEDS: QUETIAPINE FUMARATE 25 MG TABLET PO SCH ×2 (08:14→20:49)
[2018-04-04] MEDS: LOSARTAN POTASSIUM 50 MG TABLET PO SCH ×2 (08:18→20:50)
[2018-04-04] MEDS: METOPROLOL TARTRATE 25 MG TABLET PO SCH ×2 (08:19→20:50)
[2018-04-04] MEDS: CALCIUM CARB/VITAMIN D 500MG-200UNITS TABLET PO SCH ×2 (08:20→16:56)
[2018-04-04] MEDS: ERGOCALCIFEROL 50,000 UNIT CAPSULE PO SCH (08:20)
[2018-04-04] MEDS: VENLAFAXINE XR 75 MG CAP.SR.24H PO SCH (08:20)
[2018-04-04] MEDS: predniSONE 10 MG TABLET PO SCH (08:20)
[2018-04-04] MEDS: OXYBUTYNIN CHLORIDE 5 MG TABLET PO SCH ×2 (08:20→20:50)
[2018-04-04] MEDS: FLUTICASONE PROP NASAL SPRAY 16 GM BOTTLE NS SCH ×2 (08:21→16:57)
[2018-04-04] MEDS: FLUTICASONE/VILANTEROL 1 EACH BLST.W.DEV IH SCH (08:21)
[2018-04-04] MEDS: CICLOPIROX 0.77% CREAM 30 GM TUBE TP SCH ×2 (08:22→16:57)
[2018-04-04] MEDS: DOCUSATE SODIUM 100 MG CAPSULE PO SCH ×2 (08:31→20:49)
--- NOTE | 2018-04-04 09:00 | NUR ---
Received patient, awake, alert x3. Not in any form of distress. On O2 at 0.5ml per NC, sating well. Denies any pain at the moment. Tolerated diet and medications well with apple sauce. Morning care done.
--- NOTE | 2018-04-04 10:38 | NUR ---
Up with occupational therapy, tolerating well. On room air, no SOB, dizziness or chest pains noted. Will continue to monitor.
[2018-04-04 16:00] VITALS: BP 133/55
--- NOTE | 2018-04-04 16:11 | NUR ---
Social work assessment: emergency service worker met with patient at bedside to provide support and assess for psychosocial needs. emergency service worker arrived to patient bedside and introduced self, role, and purpose of visit. Patient was agreeable to conversation. Patient is a 82 year old female who was admitted to ARU for weakness after Med/Surg admission for acute bronchitis. Patient is Jordanian-speaking only. emergency service worker had [employer], Marcie, translate for patient. Patient is AxoX4 and presents with euthymic mood and congruent affect. Patient reports that she is receiving good treatment in the hospital. Patient states that she lives at home alone but is frequently visited by her two daughters who also provide her with support. Patient also states that she is seen by a private RN at home. Patient appears to be well-supported at home as she states her daughters "take good care of me". Patient states she will return to her home when she is ready for discharge. emergency service worker collaborated with case consultant, Mukesh, informing him of patient's wishes to return home. No further psychosocial needs have been identified at this time. emergency service worker has made patient aware that should she needed further consultation, she can ask her RN to request a social work visit. Patient was understanding and accepting of information. emergency service worker will continue to remain available to patient and family throughout her ARU stay.
[2018-04-04 19:40] VITALS: BP 140/60
--- NOTE | 2018-04-04 19:40 | NUR ---
Patient received in bed, AAO x3. No acute distress or SOB was noted. Only Omani speaking. On O2 0.5 L/min via NC. No complain of pain at this time. Patient assessed. Right upper arm midline, no sign of inflammation. Safety measures maintained, Fall precaution observed, Bed in low position, brake and alarm on, side rails up x2 for safety. Continue to monitor.
[2018-04-04] MEDS: ATORVASTATIN 10 MG TABLET PO SCH (20:48)
[2018-04-04] MEDS: MONTELUKAST SODIUM 10 MG TABLET PO SCH (20:50)
[2018-04-05] MEDS: ALBUTEROL SULFATE 2.5 MG/ 0.5 ML NEBU NEB SCH ×4 (01:41→19:49)
[2018-04-05] MEDS: IPRATROPIUM BROMIDE 0.5 MG/2.5 ML NEBU NEB SCH ×4 (01:41→19:49)
[2018-04-05 04:52] VITALS: BP 150/55
--- NOTE | 2018-04-05 05:43 | NUR ---
End of the shift note Patient was stable throughout the shift and had a good sleep last night. No sign of acute distress or SOB was noted. No Complain of pain. Medication given as ordered and well tolerated. Assisted to bathroom as needed with walker and 1 person assist. Right upper arm mid line flushed, patent, no sign of inflammation. Fluid restriction observed. Safety measures maintained. Fall precaution observed. All needs attended promptly. Bed in low position, brake and alarm on, side rails up x2 for safety. Call light and all personal belongings within reach. Will continue to monitor and will endorse to the incoming nurse accordingly.
[2018-04-05] MEDS: SUCRALFATE 1 G TABLET PO SCH ×3 (06:45→16:59)
[2018-04-05] MEDS: PANTOPRAZOLE SODIUM 40 MG TABLET.DR PO SCH ×2 (06:45→16:59)
[2018-04-05 08:00] VITALS: BP 123/47
[2018-04-05] MEDS ORDERED: predniSONE 10 MG TABLET PO SCH (08:00)
[2018-04-05] MEDS: DOCUSATE SODIUM 100 MG CAPSULE PO SCH ×2 (08:20→20:31)
[2018-04-05] MEDS: predniSONE 20 MG TABLET PO SCH (08:21)
[2018-04-05] MEDS: FLUTICASONE PROP NASAL SPRAY 16 GM BOTTLE NS SCH ×2 (08:22→16:59)
[2018-04-05] MEDS: CLOPIDOGREL 75 MG TABLET PO SCH (08:22)
[2018-04-05] MEDS: QUETIAPINE FUMARATE 25 MG TABLET PO SCH ×2 (08:22→20:32)
[2018-04-05] MEDS: MECLIZINE HCL 25 MG TABLET PO SCH ×3 (08:23→16:59)
[2018-04-05] MEDS: FLUTICASONE/VILANTEROL 1 EACH BLST.W.DEV IH SCH (08:23)
[2018-04-05] MEDS: OXYBUTYNIN CHLORIDE 5 MG TABLET PO SCH ×2 (08:24→20:32)
[2018-04-05] MEDS: CALCIUM CARB/VITAMIN D 500MG-200UNITS TABLET PO SCH ×2 (08:24→16:59)
[2018-04-05] MEDS: CICLOPIROX 0.77% CREAM 30 GM TUBE TP SCH ×2 (08:26→17:00)
[2018-04-05] MEDS: LOSARTAN POTASSIUM 50 MG TABLET PO SCH ×2 (08:32→20:32)
[2018-04-05] MEDS: METOPROLOL TARTRATE 25 MG TABLET PO SCH ×2 (08:32→20:32)
--- NOTE | 2018-04-05 09:15 | NUR ---
Received pt in bed. A/OX3. No acute distress noted. Denies CP or SOB. All due medications given as ordered and tolerated well. On oxygen therapy 0.5 L/min via NC. SpO2 99%. Observed midline on ELIF and remain patent and intact. Pt on fluid restriction 1500ml/day and no s/s of dehydration. Received breathing tx by RT. Skin care rendered. All pt need attended and met. Kept pt. clean and dry. Safety measures maintained. Call light and all frequently used items in place. Will continue to monitor accordingly.
--- NOTE | 2018-04-05 14:00 | NUR ---
Paged Dr. Craig for f/u GI consult. Awaiting for call back.
--- NOTE | 2018-04-05 15:01 | NUR ---
Received call from Dr. Craig with order for barium swallow study on 04/06/18, pt NPO midnight prior to procedure. Per Dr. Craig pt. will be seen on 04/06/2018.
[2018-04-05 16:00] VITALS: BP 105/46
--- NOTE | 2018-04-05 18:10 | NUR ---
End of shift: All due medications administered as ordered and tolerated well. No new skin condition noted. Kept pt. clean and dry. Skin care rendered. Participated with PT/OT and tolerated TX well. ELIF mid line patent and intact. Call light and all frequently used items within pt. reach. Will endorse to oncoming shift accordingly.
[2018-04-05 19:30] VITALS: BP 149/75
[2018-04-05] MEDS: ATORVASTATIN 10 MG TABLET PO SCH (20:32)
[2018-04-05] MEDS: MONTELUKAST SODIUM 10 MG TABLET PO SCH (20:32)
[2018-04-05 21:30] VITALS: BP 116/53
[2018-04-05] MEDS: TEMAZEPAM 15 MG CAPSULE PO PRN (21:34)
--- NOTE | 2018-04-05 23:23 | NUR ---
Received pt resting in bed and receiving her breathing tx from RT. AAO x3-4, Yi speaking, able to make needs known. On 0.5LPM O2 via NC, no acute distress noted. No c/o pain or discomfort. All due meds given as ordered. Assisted to the bathroom. Pt will be NPO from midnight, reminded pt, will implement and monitor. Safety measures maintained. Call light and personal belongings within reach. Will continue to monitor.
[2018-04-06] MEDS: IPRATROPIUM BROMIDE 0.5 MG/2.5 ML NEBU NEB SCH ×4 (01:40→19:05)
[2018-04-06] MEDS: ALBUTEROL SULFATE 2.5 MG/ 0.5 ML NEBU NEB SCH ×4 (01:40→19:05)
[2018-04-06 06:08] VITALS: BP 148/52
[2018-04-06] MEDS: PANTOPRAZOLE SODIUM 40 MG TABLET.DR PO SCH ×2 (06:33→16:18)
[2018-04-06] MEDS: SUCRALFATE 1 G TABLET PO SCH ×3 (06:33→16:18)
[2018-04-06 08:16] VITALS: BP 138/48
[2018-04-06] MEDS: QUETIAPINE FUMARATE 25 MG TABLET PO SCH ×2 (09:02→20:23)
[2018-04-06] MEDS: predniSONE 20 MG TABLET PO SCH (09:02)
[2018-04-06] MEDS: DOCUSATE SODIUM 100 MG CAPSULE PO SCH ×2 (09:05→20:23)
[2018-04-06] MEDS: CALCIUM CARB/VITAMIN D 500MG-200UNITS TABLET PO SCH ×2 (09:05→16:18)
[2018-04-06] MEDS: CLOPIDOGREL 75 MG TABLET PO SCH (09:05)
[2018-04-06] MEDS: MECLIZINE HCL 25 MG TABLET PO SCH ×3 (09:06→16:18)
[2018-04-06] MEDS: FLUTICASONE/VILANTEROL 1 EACH BLST.W.DEV IH SCH (09:06)
[2018-04-06] MEDS: OXYBUTYNIN CHLORIDE 5 MG TABLET PO SCH ×2 (09:06→20:23)
[2018-04-06] MEDS: FLUTICASONE PROP NASAL SPRAY 16 GM BOTTLE NS SCH ×2 (09:07→16:18)
[2018-04-06] MEDS: CICLOPIROX 0.77% CREAM 30 GM TUBE TP SCH ×2 (09:09→16:19)
[2018-04-06] MEDS: LOSARTAN POTASSIUM 50 MG TABLET PO SCH ×2 (09:09→21:44)
[2018-04-06] MEDS: METOPROLOL TARTRATE 25 MG TABLET PO SCH ×2 (09:09→20:24)
--- NOTE | 2018-04-06 09:30 | NUR ---
Received pt in bed. A/OX3. No acute distress noted. Denies CP or SOB. All due medications given as ordered and tolerated well. On oxygen therapy 0.5 L/min via NC. SpO2 99%. Observed midline on ELIF and remain patent and intact. Pt on fluid restriction 1500ml/day and no s/s of dehydration. Maintained NPO status for barium swallow study this afternoon scheduled at 1 PM, per radiologist pt. may have AM meds. All pt need attended and met. Kept pt. clean and dry. Safety measures maintained. Call light and all frequently used items in place. Will continue to monitor accordingly.
[2018-04-06] MEDS ORDERED: BARIUM SULFATE 340 GM ONE (12:55)
--- NOTE | 2018-04-06 13:59 | NUR ---
Order received from MD to resume previous diet order. Orders noted and carried out accordingly.
--- NOTE | 2018-04-06 14:16 | NUR ---
Pt. seen and examined by Dr. Craig ().
[2018-04-06 16:00] VITALS: BP 107/68
--- NOTE | 2018-04-06 18:16 | NUR ---
End of shift: All due medications administered as ordered and tolerated well. No new skin condition noted. Kept pt. clean and dry. Skin care rendered. Fluid restriction maintained. ELIF mid line patent and intact. Call light and all frequently used items within pt. reach. Will endorse to oncoming shift accordingly.
[2018-04-06 19:40] VITALS: BP 116/60
[2018-04-06] MEDS: ATORVASTATIN 10 MG TABLET PO SCH (20:23)
[2018-04-06] MEDS: MONTELUKAST SODIUM 10 MG TABLET PO SCH (20:23)
--- NOTE | 2018-04-06 20:33 | NUR ---
Received pt resting in bed, watching TV. AAO x4. Bermudian speaking, able to make needs known. On room air, tolerating well at 96% O2 sat. No acute distress noted. Denies SOB. Pt received routine breathing tx. On 1500mL/day fluid restriction. Safety measures maintained. Call light and personal belongings within reach. Will continue to monitor.
[2018-04-06 21:30] VITALS: BP 122/59
[2018-04-06] MEDS: TEMAZEPAM 15 MG CAPSULE PO PRN (21:45)
[2018-04-07] MEDS: ALBUTEROL SULFATE 2.5 MG/ 0.5 ML NEBU NEB SCH ×4 (00:30→18:54)
[2018-04-07] MEDS: IPRATROPIUM BROMIDE 0.5 MG/2.5 ML NEBU NEB SCH ×4 (00:30→18:54)
[2018-04-07 04:19] VITALS: BP 140/65
[2018-04-07] MEDS: PANTOPRAZOLE SODIUM 40 MG TABLET.DR PO SCH ×2 (06:09→16:30)
[2018-04-07] MEDS: SUCRALFATE 1 G TABLET PO SCH ×3 (06:35→16:34)
[2018-04-07] MEDS: FLUTICASONE PROP NASAL SPRAY 16 GM BOTTLE NS SCH ×2 (08:45→16:35)
[2018-04-07] MEDS: CLOPIDOGREL 75 MG TABLET PO SCH (08:47)
[2018-04-07] MEDS: FLUTICASONE/VILANTEROL 1 EACH BLST.W.DEV IH SCH (08:47)
[2018-04-07] MEDS: DOCUSATE SODIUM 100 MG CAPSULE PO SCH ×2 (08:47→21:11)
[2018-04-07] MEDS: predniSONE 20 MG TABLET PO SCH (08:47)
[2018-04-07] MEDS: QUETIAPINE FUMARATE 25 MG TABLET PO SCH ×2 (08:47→21:12)
[2018-04-07] MEDS: CICLOPIROX 0.77% CREAM 30 GM TUBE TP SCH ×2 (08:48→16:40)
[2018-04-07] MEDS: METOPROLOL TARTRATE 25 MG TABLET PO SCH ×2 (08:48→21:11)
[2018-04-07] MEDS: CALCIUM CARB/VITAMIN D 500MG-200UNITS TABLET PO SCH ×2 (08:49→16:35)
[2018-04-07] MEDS: MECLIZINE HCL 25 MG TABLET PO SCH ×3 (08:49→16:33)
[2018-04-07] MEDS: OXYBUTYNIN CHLORIDE 5 MG TABLET PO SCH ×2 (08:49→21:10)
[2018-04-07] MEDS: LOSARTAN POTASSIUM 50 MG TABLET PO SCH ×2 (08:56→21:11)
--- NOTE | 2018-04-07 13:47 | NUR ---
SBAR report received, Pt assessed. NAD. No pain or SOB, on RA. VSS. Pt complaint with all routine morning medication administration. Pt assisted to bathroom for voiding x1 and returned to sit in chair. Pt bedding changed, bed in locked and lowest position. Fluid restriction of 1500ml/day maintained. All comfort and safety measures implemented. Personal items and call light placed within reach. Pt sitting up in chair for lunch visiting with family. Will continue to monitor.
[2018-04-07 17:23] VITALS: BP 106/48
--- NOTE | 2018-04-07 19:40 | NUR ---
Patient received in bed, AAO x3. No acute distress or SOB was noted. Only Angolan speaking. On room air. No complain of pain at this time. Patient assessed. Right upper arm midline, flushed, patent, no sign of inflammation. Safety measures maintained, Fall precaution observed, Bed in low position, brake and alarm on, side rails up x2 for safety. Continue to monitor.
[2018-04-07 19:45] VITALS: BP 111/53
[2018-04-07] MEDS: MONTELUKAST SODIUM 10 MG TABLET PO SCH (21:10)
[2018-04-07] MEDS: ATORVASTATIN 10 MG TABLET PO SCH (21:11)
[2018-04-07] MEDS: TEMAZEPAM 15 MG CAPSULE PO PRN (22:45)
[2018-04-08] MEDS: IPRATROPIUM BROMIDE 0.5 MG/2.5 ML NEBU NEB SCH ×4 (00:35→19:57)
[2018-04-08] MEDS: ALBUTEROL SULFATE 2.5 MG/ 0.5 ML NEBU NEB SCH ×4 (00:35→19:57)
--- NOTE | 2018-04-08 06:27 | NUR ---
End of the shift note Patient was stable throughout the shift and had a good sleep last night. No sign of acute distress or SOB was noted. No Complain of pain. Medication given as ordered and well tolerated. Assisted to bathroom as needed with walker and 1 person assist. Keep her clean and dry. Right upper arm mid line flushed, patent, no sign of inflammation. Fluid restriction observed. Safety measures maintained. Fall precaution observed. All needs attended promptly. Bed in low position, brake and alarm on, side rails up x2 for safety. Call light and all personal belongings within reach. Will continue to monitor and will endorse to the incoming nurse accordingly.
[2018-04-08] MEDS: PANTOPRAZOLE SODIUM 40 MG TABLET.DR PO SCH ×2 (06:37→16:34)
[2018-04-08] MEDS: SUCRALFATE 1 G TABLET PO SCH ×3 (06:37→16:34)
[2018-04-08 06:44] VITALS: BP 119/59
[2018-04-08 07:05] LABS: BASOPHILS % (AUTO) 0.2 % (0.0-2.0); EOSINOPHILS # (AUTO) 0.1 K/uL (0.0-0.7); EOSINOPHILS % (AUTO) 0.6 % (0.0-7.0); HEMATOCRIT 34.4 % (31.2-41.9); HEMOGLOBIN 11.6 g/dL (10.9-14.3); LYMPHOCYTES # (AUTO) 2.2 K/uL (20.0-40.0); LYMPHOCYTES % (AUTO) 14.6 % (20.5-51.5); MEAN CORPUSCULAR HEMOGLOBIN 28.8 uug (24.7-32.8); MEAN CORPUSCULAR HGB CONC 34 g/dL (32.3-35.6); MEAN CORPUSCULAR VOLUME 85.2 fL (75.5-95.3); MONOCYTES # (AUTO) 1.1 K/uL (2.0-10.0); MONOCYTES % (AUTO) 7.4 % (0.0-11.0); NEUTROPHILS # (AUTO) 11.4 K/uL (1.8-8.9); NEUTROPHILS % (AUTO) 77.2 % (38.5-71.5); PLATELET COUNT (AUTO) 465 K/uL (179-408); RED BLOOD CELL COUNT(AUTO) 4.04 MIL/uL (3.63-4.92); WHITE BLOOD COUNT (AUTO) 14.7 K/uL (3.8-11.8)
[2018-04-08 07:28] LABS: ALANINE AMINOTRANSFERASE 14 U/L (14-59); ALKALINE PHOSPHATASE 76 U/L (50-136); ASPARTATE AMINOTRANSFERASE 11 U/L (15-37); BILIRUBIN,TOTAL 0.4 mg/dL (0.2-1.0); CARBON DIOXIDE 27 mmol/L (21-32); CHLORIDE 93 mmol/L (98-107); CREATININE 1.2 mg/dL (0.6-1.3); GLUCOSE 102 mg/dL (74-106); MAGNESIUM 1.7 mg/dL (1.8-2.4); PHOSPHOROUS 3.6 mg/dL (2.5-4.9); POTASSIUM 3.9 mmol/L (3.5-5.1); UREA NITROGEN, BLOOD 22 mg/dL (7-18)
[2018-04-08 08:00] VITALS: BP 126/55
[2018-04-08] MEDS: FLUTICASONE PROP NASAL SPRAY 16 GM BOTTLE NS SCH ×2 (08:12→16:34)
[2018-04-08] MEDS: CLOPIDOGREL 75 MG TABLET PO SCH (08:13)
[2018-04-08] MEDS: QUETIAPINE FUMARATE 25 MG TABLET PO SCH ×2 (08:13→21:02)
[2018-04-08] MEDS: LOSARTAN POTASSIUM 50 MG TABLET PO SCH ×2 (08:13→21:03)
[2018-04-08] MEDS: METOPROLOL TARTRATE 25 MG TABLET PO SCH ×2 (08:13→21:05)
[2018-04-08] MEDS: DOCUSATE SODIUM 100 MG CAPSULE PO SCH ×2 (08:13→21:04)
[2018-04-08] MEDS: MECLIZINE HCL 25 MG TABLET PO SCH ×3 (08:13→16:34)
[2018-04-08] MEDS: OXYBUTYNIN CHLORIDE 5 MG TABLET PO SCH ×2 (08:13→21:02)
[2018-04-08] MEDS: CALCIUM CARB/VITAMIN D 500MG-200UNITS TABLET PO SCH ×2 (08:13→16:37)
[2018-04-08] MEDS: CICLOPIROX 0.77% CREAM 30 GM TUBE TP SCH ×2 (08:14→16:34)
[2018-04-08] MEDS: predniSONE 20 MG TABLET PO SCH (08:14)
[2018-04-08] MEDS: FLUTICASONE/VILANTEROL 1 EACH BLST.W.DEV IH SCH (08:17)
[2018-04-08] MEDS ORDERED: MAGNESIUM OXIDE 400 MG TABLET PO ONE (10:00)
--- NOTE | 2018-04-08 13:13 | NUR ---
INTERDISCIPLINARY TEAM CONFERENCE
--- NOTE | 2018-04-08 18:41 | NUR ---
Patient seen and examined by MARLA Green regarding esophagus x-ray result-achlasia.ordered change mechanical soft to puree diet and pantoprazole for prophylaxis BID. tolerated well. not in distress. SPO2-97%. Continue therapy for ambulation, ADL, transfer ability. will continue monitor
--- NOTE | 2018-04-08 19:35 | NUR ---
Patient received sitting in wheelchair, AAO x3. No acute distress or SOB was noted. Only Stateless speaking. On room air. No complain of pain at this time. Patient assessed. V/S checked. Right upper arm midline, flushed, patent, no sign of inflammation. Safety measures maintained, Fall precaution observed, Bed in low position, brake and alarm on, side rails up x2 for safety. Continue to monitor.
[2018-04-08 19:45] VITALS: BP 124/56
[2018-04-08] MEDS: MONTELUKAST SODIUM 10 MG TABLET PO SCH (21:02)
[2018-04-08] MEDS: ATORVASTATIN 10 MG TABLET PO SCH (21:04)
[2018-04-08] MEDS: TEMAZEPAM 15 MG CAPSULE PO PRN (22:28)
[2018-04-09] MEDS: ALBUTEROL SULFATE 2.5 MG/ 0.5 ML NEBU NEB SCH ×4 (00:44→19:08)
[2018-04-09] MEDS: IPRATROPIUM BROMIDE 0.5 MG/2.5 ML NEBU NEB SCH ×4 (00:44→19:08)
[2018-04-09 06:09] VITALS: BP 143/44
[2018-04-09] MEDS: PANTOPRAZOLE SODIUM 40 MG TABLET.DR PO SCH ×2 (06:31→16:55)
[2018-04-09] MEDS: SUCRALFATE 1 G TABLET PO SCH ×3 (06:31→16:55)
--- NOTE | 2018-04-09 06:42 | NUR ---
End of the shift note Patient was stable throughout the shift and had a good sleep last night. No sign of acute distress or SOB was noted. No Complain of pain. Medication given as ordered and well tolerated. Assisted to bathroom as needed with walker and 1 person assist. Keep her clean and dry. Right upper arm mid line flushed, patent, no sign of inflammation. V/S checked. Fluid restriction observed. Safety measures maintained. Fall precaution observed. All needs attended promptly. Bed in low position, brake and alarm on, side rails up x2 for safety. Call light and all personal belongings within reach. Will continue to monitor and will endorse to the incoming nurse accordingly.
--- NOTE | 2018-04-09 08:00 | NUR ---
Received patient, awake, alert x 3. On room air tolerating well. Not in any form of distress. No SOB, chest pains or dizziness noted. Kept on aspiration precaution. Explained to patient to maintain 1500 fluid restriction. No pain noted.
[2018-04-09 08:09] LABS: BASOPHILS # (AUTO) 0.1 K/uL (0.0-8.0); BASOPHILS % (AUTO) 0.6 % (0.0-2.0); EOSINOPHILS # (AUTO) 0.2 K/uL (0.0-0.7); EOSINOPHILS % (AUTO) 1.7 % (0.0-7.0); HEMATOCRIT 32.7 % (31.2-41.9); HEMOGLOBIN 11.1 g/dL (10.9-14.3); LYMPHOCYTES # (AUTO) 2.3 K/uL (20.0-40.0); LYMPHOCYTES % (AUTO) 22.7 % (20.5-51.5); MEAN CORPUSCULAR HEMOGLOBIN 28.7 uug (24.7-32.8); MEAN CORPUSCULAR HGB CONC 34 g/dL (32.3-35.6); MONOCYTES # (AUTO) 0.8 K/uL (2.0-10.0); MONOCYTES % (AUTO) 7.7 % (0.0-11.0); NEUTROPHILS # (AUTO) 6.9 K/uL (1.8-8.9); NEUTROPHILS % (AUTO) 67.3 % (38.5-71.5); PLATELET COUNT (AUTO) 364 K/uL (179-408); RED BLOOD CELL COUNT(AUTO) 3.85 MIL/uL (3.63-4.92); WHITE BLOOD COUNT (AUTO) 10.3 K/uL (3.8-11.8)
[2018-04-09 08:15] LABS: CARBON DIOXIDE 32 mmol/L (21-32); CHLORIDE 97 mmol/L (98-107); GLUCOSE 86 mg/dL (74-106); POTASSIUM 4.1 mmol/L (3.5-5.1); UREA NITROGEN, BLOOD 22 mg/dL (7-18)
[2018-04-09] MEDS: FLUTICASONE PROP NASAL SPRAY 16 GM BOTTLE NS SCH ×2 (08:41→16:55)
[2018-04-09] MEDS: FLUTICASONE/VILANTEROL 1 EACH BLST.W.DEV IH SCH (08:41)
[2018-04-09] MEDS: predniSONE 20 MG TABLET PO SCH (08:41)
[2018-04-09] MEDS: CALCIUM CARB/VITAMIN D 500MG-200UNITS TABLET PO SCH ×2 (08:42→16:55)
[2018-04-09] MEDS: MECLIZINE HCL 25 MG TABLET PO SCH ×3 (08:42→16:55)
[2018-04-09] MEDS: DOCUSATE SODIUM 100 MG CAPSULE PO SCH ×2 (08:42→20:01)
[2018-04-09] MEDS: QUETIAPINE FUMARATE 25 MG TABLET PO SCH ×2 (08:42→20:02)
[2018-04-09] MEDS: CLOPIDOGREL 75 MG TABLET PO SCH (08:43)
[2018-04-09] MEDS: METOPROLOL TARTRATE 25 MG TABLET PO SCH ×2 (08:43→20:03)
[2018-04-09] MEDS: OXYBUTYNIN CHLORIDE 5 MG TABLET PO SCH ×2 (08:58→20:02)
[2018-04-09] MEDS: CICLOPIROX 0.77% CREAM 30 GM TUBE TP SCH ×2 (08:59→16:56)
[2018-04-09] MEDS: LOSARTAN POTASSIUM 50 MG TABLET PO SCH ×2 (08:59→21:33)
[2018-04-09 09:00] VITALS: BP 138/50
--- NOTE | 2018-04-09 09:30 | NUR ---
Up with physical therapy, tolerating well. No pain noted. Was able to ambulate around the unit.
[2018-04-09 16:00] VITALS: BP 114/44
--- NOTE | 2018-04-09 17:20 | NUR ---
Maintained fluid restriction. Midline patent intact and flushed over right upper arm. Tolerated medications well with apple sauce. Diet tolerated well, no S/S of aspiration. Sating well at room air.
[2018-04-09 19:41] VITALS: BP 105/53
[2018-04-09] MEDS: ATORVASTATIN 10 MG TABLET PO SCH (20:01)
[2018-04-09] MEDS: MONTELUKAST SODIUM 10 MG TABLET PO SCH (20:01)
--- NOTE | 2018-04-09 20:24 | NUR ---
Received pt resting in bed. AAO x3-4. Nigerian speaking, able to make needs known. On room air, tolerating well. No acute distress noted. No c/o pain or discomfort. Safety measures maintained. Call light and personal belongings within reach. Will continue to monitor.
--- NOTE | 2018-04-09 20:28 | NUR ---
On 1500mL fluid restriction. Will maintain. Both heels offloaded.
[2018-04-09] MEDS: TEMAZEPAM 15 MG CAPSULE PO PRN (21:34)
[2018-04-09 21:39] VITALS: BP 104/59
[2018-04-10] MEDS: ALBUTEROL SULFATE 2.5 MG/ 0.5 ML NEBU NEB SCH ×4 (00:41→21:54)
[2018-04-10] MEDS: IPRATROPIUM BROMIDE 0.5 MG/2.5 ML NEBU NEB SCH ×4 (00:41→21:54)
[2018-04-10 05:02] VITALS: BP 138/46
[2018-04-10] MEDS: PANTOPRAZOLE SODIUM 40 MG TABLET.DR PO SCH ×2 (06:23→16:45)
[2018-04-10] MEDS: SUCRALFATE 1 G TABLET PO SCH ×3 (06:30→16:45)
--- NOTE | 2018-04-10 06:38 | NUR ---
Pt slept comfortably at night. Assisted to the bathroom. All needs attended to promptly. Tolerating room air, received routing breathing tx. Fluid restriction observed. Will endorse to oncoming shift. Continue to monitor.
[2018-04-10] MEDS: predniSONE 5 MG TABLET PO SCH (07:59)
[2018-04-10] MEDS ORDERED: predniSONE 20 MG TABLET PO SCH (08:00)
[2018-04-10] MEDS: LOSARTAN POTASSIUM 50 MG TABLET PO SCH ×2 (08:00→21:16)
[2018-04-10] MEDS: METOPROLOL TARTRATE 25 MG TABLET PO SCH ×2 (08:00→20:00)
[2018-04-10] MEDS: DOCUSATE SODIUM 100 MG CAPSULE PO SCH ×2 (08:00→20:00)
[2018-04-10] MEDS: MECLIZINE HCL 25 MG TABLET PO SCH ×3 (08:01→16:45)
[2018-04-10] MEDS: CLOPIDOGREL 75 MG TABLET PO SCH (08:01)
[2018-04-10] MEDS: QUETIAPINE FUMARATE 25 MG TABLET PO SCH ×2 (08:01→20:00)
[2018-04-10] MEDS: OXYBUTYNIN CHLORIDE 5 MG TABLET PO SCH ×2 (08:02→20:00)
[2018-04-10] MEDS: CALCIUM CARB/VITAMIN D 500MG-200UNITS TABLET PO SCH ×2 (08:03→16:45)
[2018-04-10] MEDS: FLUTICASONE/VILANTEROL 1 EACH BLST.W.DEV IH SCH (08:03)
[2018-04-10] MEDS: FLUTICASONE PROP NASAL SPRAY 16 GM BOTTLE NS SCH ×2 (08:04→16:46)
[2018-04-10] MEDS: CICLOPIROX 0.77% CREAM 30 GM TUBE TP SCH ×2 (08:05→16:46)
[2018-04-10 08:33] VITALS: BP 153/51
--- NOTE | 2018-04-10 08:54 | NUR ---
Received pt in bed. A/OX3. No acute distress noted. Denies CP or SOB on RA and tolerating well. All due medications given as ordered and tolerated well. Observed midline on ELIF and remain patent and intact. Pt on fluid restriction 1500ml/day and no s/s of dehydration. All pt need attended and met. Kept pt. clean and dry. Safety measures maintained. Call light and all frequently used items in place. Will continue to monitor accordingly.
[2018-04-10 16:00] VITALS: BP 111/40
--- NOTE | 2018-04-10 19:08 | NUR ---
End of shift: All due medications administered as ordered and tolerated well. No new skin condition noted. Kept pt. clean and dry. Skin care rendered. ELIF mid line patent and intact. Call light and all frequently used items within pt. reach. Will endorse to oncoming shift accordingly.
[2018-04-10] MEDS: MONTELUKAST SODIUM 10 MG TABLET PO SCH (20:00)
[2018-04-10] MEDS: ATORVASTATIN 10 MG TABLET PO SCH (20:00)
[2018-04-10 20:12] VITALS: BP 119/55
--- NOTE | 2018-04-10 20:57 | NUR ---
Received pt resting in bed and watching TV. AAO x3-4. Mexican speaking and able to make needs known. On room air, tolerating well. No acute distress noted. No c/o pain or discomfort. Due meds given as ordered. VS WNL. Both heels offloaded. On 1500mL fluid restriction, will observe. Safety measures maintained. Call light and personal belongings within reach. Will continue to monitor.
[2018-04-10 21:15] VITALS: BP 125/61
[2018-04-10] MEDS: TEMAZEPAM 15 MG CAPSULE PO PRN (21:16)
[2018-04-11] MEDS: ALBUTEROL SULFATE 2.5 MG/ 0.5 ML NEBU NEB SCH ×4 (01:30→18:55)
[2018-04-11] MEDS: IPRATROPIUM BROMIDE 0.5 MG/2.5 ML NEBU NEB SCH ×4 (01:30→18:55)
[2018-04-11 04:00] VITALS: BP 137/65
[2018-04-11] MEDS: PANTOPRAZOLE SODIUM 40 MG TABLET.DR PO SCH ×2 (06:11→16:34)
[2018-04-11] MEDS: SUCRALFATE 1 G TABLET PO SCH ×3 (06:31→16:33)
[2018-04-11] MEDS: predniSONE 5 MG TABLET PO SCH (08:01)
[2018-04-11] MEDS: FLUTICASONE/VILANTEROL 1 EACH BLST.W.DEV IH SCH (08:01)
[2018-04-11] MEDS: FLUTICASONE PROP NASAL SPRAY 16 GM BOTTLE NS SCH ×2 (08:01→16:34)
[2018-04-11] MEDS: CALCIUM CARB/VITAMIN D 500MG-200UNITS TABLET PO SCH ×2 (08:02→16:34)
[2018-04-11] MEDS: MECLIZINE HCL 25 MG TABLET PO SCH ×3 (08:02→16:34)
[2018-04-11] MEDS: DOCUSATE SODIUM 100 MG CAPSULE PO SCH ×2 (08:02→21:11)
[2018-04-11] MEDS: CLOPIDOGREL 75 MG TABLET PO SCH (08:02)
[2018-04-11] MEDS: ERGOCALCIFEROL 50,000 UNIT CAPSULE PO SCH (08:03)
[2018-04-11] MEDS: QUETIAPINE FUMARATE 25 MG TABLET PO SCH ×2 (08:03→20:44)
[2018-04-11] MEDS: METOPROLOL TARTRATE 25 MG TABLET PO SCH ×2 (08:04→20:46)
[2018-04-11] MEDS: OXYBUTYNIN CHLORIDE 5 MG TABLET PO SCH ×2 (08:04→20:44)
[2018-04-11] MEDS: LOSARTAN POTASSIUM 50 MG TABLET PO SCH ×2 (08:04→20:46)
[2018-04-11] MEDS: CICLOPIROX 0.77% CREAM 30 GM TUBE TP SCH ×2 (08:05→16:34)
[2018-04-11 08:34] VITALS: BP 155/61
--- NOTE | 2018-04-11 10:16 | NUR ---
Received pt in bed. A/OX3. No acute distress noted. Denies CP or SOB. On RA and tolerating well. All due medications given as ordered and tolerated well. Observed midline on ELIF and remain patent and intact. Remained on fluid restriction 1500ml/day. All pt need attended and met. Kept pt. clean and dry. Safety measures maintained. Call light and all frequently used items in place. Will continue to monitor accordingly.
[2018-04-11 16:58] VITALS: BP 139/63
--- NOTE | 2018-04-11 17:44 | NUR ---
End of shift: All due medications administered as ordered and tolerated well. No new skin condition noted. Kept pt. clean and dry. Skin care rendered. ELIF mid line patent and intact. Pt. OOB for most part of the day and preferred to sit on chair. No new complaint. Call light and all frequently used items within pt. reach. Will endorse to oncoming shift accordingly.
[2018-04-11 19:45] VITALS: BP 108/50
--- NOTE | 2018-04-11 19:45 | NUR ---
Patient received sitting in bed and watching TV, AAO x3. No acute distress or SOB was noted. Only Solomon Islander speaking. On room air. No complain of pain at this time. Patient assessed. V/S checked. Right upper arm midline, no sign of inflammation. Safety measures maintained, Fall precaution observed, Bed in low position, brake and alarm on, side rails up x2 for safety. Continue to monitor.
[2018-04-11] MEDS: MONTELUKAST SODIUM 10 MG TABLET PO SCH (20:44)
[2018-04-11] MEDS: ATORVASTATIN 10 MG TABLET PO SCH (20:44)
--- NOTE | 2018-04-11 21:20 | NUR ---
Losartan 50 mg tab was held because of low BP: 105/50. Continue to monitor.
[2018-04-11] MEDS: TEMAZEPAM 15 MG CAPSULE PO PRN (22:44)
[2018-04-12] MEDS: IPRATROPIUM BROMIDE 0.5 MG/2.5 ML NEBU NEB SCH ×5 (01:38→19:14)
[2018-04-12] MEDS: ALBUTEROL SULFATE 2.5 MG/ 0.5 ML NEBU NEB SCH ×5 (01:38→19:14)
[2018-04-12 05:58] VITALS: BP 144/54
[2018-04-12] MEDS: SUCRALFATE 1 G TABLET PO SCH ×3 (06:41→16:20)
[2018-04-12] MEDS: PANTOPRAZOLE SODIUM 40 MG TABLET.DR PO SCH ×2 (06:41→16:20)
[2018-04-12] MEDS: FLUTICASONE PROP NASAL SPRAY 16 GM BOTTLE NS SCH ×2 (08:41→16:20)
[2018-04-12] MEDS: predniSONE 5 MG TABLET PO SCH (08:41)
[2018-04-12] MEDS: CLOPIDOGREL 75 MG TABLET PO SCH (08:42)
[2018-04-12] MEDS: LOSARTAN POTASSIUM 50 MG TABLET PO SCH ×2 (08:42→20:44)
[2018-04-12] MEDS: FLUTICASONE/VILANTEROL 1 EACH BLST.W.DEV IH SCH (08:43)
[2018-04-12] MEDS: OXYBUTYNIN CHLORIDE 5 MG TABLET PO SCH ×2 (08:43→20:46)
[2018-04-12] MEDS: MECLIZINE HCL 25 MG TABLET PO SCH ×3 (08:43→16:20)
[2018-04-12] MEDS: DOCUSATE SODIUM 100 MG CAPSULE PO SCH ×2 (08:43→20:44)
[2018-04-12] MEDS: CALCIUM CARB/VITAMIN D 500MG-200UNITS TABLET PO SCH ×2 (08:43→16:21)
[2018-04-12] MEDS: QUETIAPINE FUMARATE 25 MG TABLET PO SCH ×2 (08:43→20:44)
[2018-04-12] MEDS: CICLOPIROX 0.77% CREAM 30 GM TUBE TP SCH ×2 (08:43→16:20)
[2018-04-12] MEDS: METOPROLOL TARTRATE 25 MG TABLET PO SCH ×2 (08:43→20:45)
[2018-04-12 10:05] VITALS: BP 134/54
--- NOTE | 2018-04-12 14:59 | NUR ---
Received patient awake in bed in stable condition. Continue fluid restriction for CHF/ COPD. not in distress. O2- 96% on room air. Continue therapy for ambulation, ADL and transfer ability. tolerated well. no complaint of pain/discomfort noted. will continue monitor
[2018-04-12 16:01] VITALS: BP 122/49
[2018-04-12 19:48] VITALS: BP 117/49
[2018-04-12] MEDS: ATORVASTATIN 10 MG TABLET PO SCH (20:45)
[2018-04-12] MEDS: MONTELUKAST SODIUM 10 MG TABLET PO SCH (20:45)
[2018-04-12] MEDS: TEMAZEPAM 15 MG CAPSULE PO PRN (23:01)
[2018-04-13] MEDS: ALBUTEROL SULFATE 2.5 MG/ 0.5 ML NEBU NEB SCH ×4 (00:32→19:19)
[2018-04-13] MEDS: IPRATROPIUM BROMIDE 0.5 MG/2.5 ML NEBU NEB SCH ×4 (00:32→19:19)
[2018-04-13 04:00] VITALS: BP 152/59
[2018-04-13] MEDS: PANTOPRAZOLE SODIUM 40 MG TABLET.DR PO SCH ×2 (06:16→16:56)
[2018-04-13] MEDS: SUCRALFATE 1 G TABLET PO SCH ×3 (06:30→16:55)
[2018-04-13 09:00] VITALS: BP 151/50
[2018-04-13] MEDS: DOCUSATE SODIUM 100 MG CAPSULE PO SCH ×2 (09:00→20:19)
[2018-04-13] MEDS: FLUTICASONE/VILANTEROL 1 EACH BLST.W.DEV IH SCH (09:16)
[2018-04-13] MEDS: predniSONE 5 MG TABLET PO SCH (09:16)
[2018-04-13] MEDS: FLUTICASONE PROP NASAL SPRAY 16 GM BOTTLE NS SCH ×2 (09:16→16:55)
[2018-04-13] MEDS: MECLIZINE HCL 25 MG TABLET PO SCH ×3 (09:16→16:55)
[2018-04-13] MEDS: METOPROLOL TARTRATE 25 MG TABLET PO SCH ×2 (09:17→20:20)
[2018-04-13] MEDS: CALCIUM CARB/VITAMIN D 500MG-200UNITS TABLET PO SCH ×2 (09:17→16:55)
[2018-04-13] MEDS: QUETIAPINE FUMARATE 25 MG TABLET PO SCH ×2 (09:17→20:19)
[2018-04-13] MEDS: CICLOPIROX 0.77% CREAM 30 GM TUBE TP SCH ×2 (09:17→16:56)
[2018-04-13] MEDS: CLOPIDOGREL 75 MG TABLET PO SCH (09:17)
[2018-04-13] MEDS: LOSARTAN POTASSIUM 50 MG TABLET PO SCH ×2 (09:17→20:18)
[2018-04-13] MEDS: OXYBUTYNIN CHLORIDE 5 MG TABLET PO SCH ×2 (09:18→20:19)
--- NOTE | 2018-04-13 09:30 | NUR ---
Received patient, awake, alert x 3-4. Not in any form of distress, on room air sating well. No SOB or chest pains noted. Patient tolerated diet well, medications given with apple sauce tolerated well. No S/S of aspiration. Patient refused Colace, said she has had regular bowel movement and does not need it for now. Discussed risks and benefits but patient refused. No pain noted. Will continue to monitor.
--- NOTE | 2018-04-13 11:37 | NUR ---
Up with physical therapy, tolerating well. Was able to ambulate with FWW. On room air tolerating well. No SOB noted.
[2018-04-13 16:00] VITALS: BP 126/57
[2018-04-13 19:36] VITALS: BP 119/62
--- NOTE | 2018-04-13 19:42 | NUR ---
Received pt in bed, AAO x 3 watching television. No acute distress noted. Verbally responsive and able to make needs known. Primarily thai speaking but able to communicate needs in Amharic. Denies pain or discomfort at this time. All safety measures and fall precautions maintained. Call light and all personal belongings within reach. Will continue to monitor.
[2018-04-13] MEDS: MONTELUKAST SODIUM 10 MG TABLET PO SCH (20:18)
[2018-04-13] MEDS: ATORVASTATIN 10 MG TABLET PO SCH (20:18)
[2018-04-13] MEDS: TEMAZEPAM 15 MG CAPSULE PO PRN (23:18)
[2018-04-14] MEDS: ALBUTEROL SULFATE 2.5 MG/ 0.5 ML NEBU NEB SCH ×4 (01:17→20:09)
[2018-04-14] MEDS: IPRATROPIUM BROMIDE 0.5 MG/2.5 ML NEBU NEB SCH ×4 (01:17→20:09)
[2018-04-14 06:08] VITALS: BP 136/60
[2018-04-14] MEDS: SUCRALFATE 1 G TABLET PO SCH ×3 (06:43→17:00)
[2018-04-14] MEDS: PANTOPRAZOLE SODIUM 40 MG TABLET.DR PO SCH ×2 (06:43→17:00)
[2018-04-14] MEDS: CALCIUM CARB/VITAMIN D 500MG-200UNITS TABLET PO SCH ×2 (08:57→17:00)
[2018-04-14] MEDS: FLUTICASONE/VILANTEROL 1 EACH BLST.W.DEV IH SCH (08:57)
[2018-04-14] MEDS: CLOPIDOGREL 75 MG TABLET PO SCH (08:58)
[2018-04-14] MEDS: MECLIZINE HCL 25 MG TABLET PO SCH ×3 (08:58→17:00)
[2018-04-14] MEDS: FLUTICASONE PROP NASAL SPRAY 16 GM BOTTLE NS SCH ×2 (08:58→17:00)
[2018-04-14] MEDS: LOSARTAN POTASSIUM 50 MG TABLET PO SCH ×2 (08:58→20:09)
[2018-04-14] MEDS: OXYBUTYNIN CHLORIDE 5 MG TABLET PO SCH ×2 (08:59→20:09)
[2018-04-14] MEDS: METOPROLOL TARTRATE 25 MG TABLET PO SCH ×2 (08:59→20:09)
[2018-04-14 09:00] VITALS: BP 155/60
[2018-04-14] MEDS: DOCUSATE SODIUM 100 MG CAPSULE PO SCH ×2 (09:00→20:09)
--- NOTE | 2018-04-14 09:00 | NUR ---
Received patient, awake alert x3. No dizziness, SOB or chest pains noted. On room air, sating well. With intact and patent right upper arm midline. Maintained and reminded patient about 1500ml fluid restriction. Tolerated diet and medications well with apple sauce.
[2018-04-14] MEDS: predniSONE 5 MG TABLET PO SCH (09:06)
[2018-04-14] MEDS: CICLOPIROX 0.77% CREAM 30 GM TUBE TP SCH ×2 (09:07→17:00)
--- NOTE | 2018-04-14 09:30 | NUR ---
Refused Colace at this time said she had a bowel movement and does not need it now. Discussed risks and benefits but patient still refused.
--- NOTE | 2018-04-14 10:40 | NUR ---
Tolerated therapy well. No pain noted. On room air, sating well. Was able to ambulate around the unit.
[2018-04-14] MEDS: QUETIAPINE FUMARATE 25 MG TABLET PO SCH ×2 (10:47→20:09)
[2018-04-14 14:00] VITALS: BP 151/64
--- NOTE | 2018-04-14 16:00 | NUR ---
Seen on rounding, no dizziness or SOB. Offered shower, since it was her shower day but patient refused. Said she will be too cold and might get bronchitis again.
[2018-04-14 20:03] VITALS: BP 146/64
[2018-04-14] MEDS: MONTELUKAST SODIUM 10 MG TABLET PO SCH (20:09)
[2018-04-14] MEDS: ATORVASTATIN 10 MG TABLET PO SCH (20:09)
[2018-04-14] MEDS: TEMAZEPAM 15 MG CAPSULE PO PRN (23:41)
[2018-04-15] MEDS: IPRATROPIUM BROMIDE 0.5 MG/2.5 ML NEBU NEB SCH ×3 (01:22→12:58)
[2018-04-15] MEDS: ALBUTEROL SULFATE 2.5 MG/ 0.5 ML NEBU NEB SCH ×3 (01:23→12:58)
[2018-04-15 04:00] VITALS: BP 144/62
[2018-04-15] MEDS: PANTOPRAZOLE SODIUM 40 MG TABLET.DR PO SCH (06:15)
[2018-04-15] MEDS: SUCRALFATE 1 G TABLET PO SCH ×2 (06:35→11:52)
--- NOTE | 2018-04-15 08:15 | NUR ---
Received patient awake, alert x 3-4. On room air tolerating well. No SOB or chest pains noted. No pain noted. Morning care done. Tolerated medications with apple sauce. No S/S of aspiration. Maintained on 1500 fluids restriction. For possible discharge today.
--- NOTE | 2018-04-15 08:45 | NUR ---
INH TX NOT GIVEN AT THIS TIME, PT OUT OF ROOM WITH THERAPY SERVICES.
[2018-04-15] MEDS: FLUTICASONE PROP NASAL SPRAY 16 GM BOTTLE NS SCH (08:54)
[2018-04-15] MEDS: predniSONE 5 MG TABLET PO SCH (08:54)
[2018-04-15] MEDS: FLUTICASONE/VILANTEROL 1 EACH BLST.W.DEV IH SCH (08:54)
[2018-04-15] MEDS: CALCIUM CARB/VITAMIN D 500MG-200UNITS TABLET PO SCH (08:54)
[2018-04-15] MEDS: OXYBUTYNIN CHLORIDE 5 MG TABLET PO SCH (08:54)
[2018-04-15] MEDS: MECLIZINE HCL 25 MG TABLET PO SCH ×2 (08:55→13:07)
[2018-04-15] MEDS: QUETIAPINE FUMARATE 25 MG TABLET PO SCH (08:55)
[2018-04-15] MEDS: LOSARTAN POTASSIUM 50 MG TABLET PO SCH (08:55)
[2018-04-15] MEDS: CLOPIDOGREL 75 MG TABLET PO SCH (08:55)
[2018-04-15] MEDS: METOPROLOL TARTRATE 25 MG TABLET PO SCH (08:55)
[2018-04-15] MEDS: CICLOPIROX 0.77% CREAM 30 GM TUBE TP SCH (08:56)
[2018-04-15 09:00] VITALS: BP 148/79
[2018-04-15] MEDS: DOCUSATE SODIUM 100 MG CAPSULE PO SCH (09:00)
--- NOTE | 2018-04-15 11:09 | NUR ---
Up with physical therapy, tolerating well. On room air. No SOB or pain noted. TMS and discharge prescription completed by Dr. Bobby Olson. Obtained discharge order from Dr Tovar.
--- NOTE | 2018-04-15 14:00 | NUR ---
Discharge to home with home health. Discharge packet and education explained to patient and daughter. Discharge prescriptions explained and given to daughter. Instructed to take medications as prescribed and to follow-up as soon as possible with Dr. Izquierdo. Instructed on puree diet and aspiration precautions and as much as possible to maintain 2g Na diet. Routine discharge care done. Went home via private car accompanied by Katiana Sae, daughter. Dr Tovar and Dr Olson aware of discharge.
== END 2018-04-15 14:00 | disposition home health service (06) | DRG 194 ==
PROVIDERS: ADMIT Physical Medicine & Rehabilitation Pain Medicine; ATTEND Physical Medicine & Rehabilitation Pain Medicine
DX: J18.9 Pneumonia, unspecified organism (principal); J44.0 Chronic obstructive pulmonary disease with (acute) lower respiratory infection; J44.1 Chronic obstructive pulmonary disease with (acute) exacerbation; E22.2 Syndrome of inappropriate secretion of antidiuretic hormone; I13.0 Hypertensive heart and chronic kidney disease with heart failure and stage 1 through stage 4 chronic kidney disease, or unspecified chronic kidney disease; I50.32 Chronic diastolic (congestive) heart failure; E87.2 Acidosis; J20.9 Acute bronchitis, unspecified; E11.22 Type 2 diabetes mellitus with diabetic chronic kidney disease; N18.9 Chronic kidney disease, unspecified; E78.5 Hyperlipidemia, unspecified; F03.90 Unspecified dementia, unspecified severity, without behavioral disturbance, psychotic disturbance, mood disturbance, and anxiety; K21.9 Gastro-esophageal reflux disease without esophagitis; R53.81 Other malaise; R13.10 Dysphagia, unspecified; M19.90 Unspecified osteoarthritis, unspecified site; Z88.0 Allergy status to penicillin
CPT/HCPCS: 36415; 71045; 74220; 83735; 84100; 84300; 85025; 87086; 92523; 92526; 92610; 94640; 97110; 97112; 97116; 97165; 97530; 97535; J3535; J3590; J7512; J8597; Q0144; Q9967

== ENCOUNTER 2019-01-23 10:56 | Inpatient (IN) | payer MEDICARE, MEDICAID ==
[~2019-01-23] VITALS: Ht 147.3 cm; Wt 57.6 kg
[~2019-01-23 10:56] MED LIST changes: +ALBU1.25 NEB; -AMLO5TAB4 PO; +AZIT500T PO; -CHOL500050 PO; -DICL100G16 TP; +ERGO500040 PO; -ERYT-113 PO; +FLUT1BLS IH; -FLUT1DIS28 INH; -HYDR-4077 PO; +IPRA0.2S6 NEB; -LOSA100T31 PO; -METO-357 PO; +METO25TA6 PO; +OXYB5TAB16 PO; -SOLI5TAB2 PO; -SPIR50TA5 PO
--- NOTE | 2019-01-23 10:56 | NUR ---
Pt ambulatory to room 1a with daughter (who is translating for the pt in Luxembourgish). Pt c/o cp and sob since last night. [facility] states pt has a HHN Neb machine at home which is not working, they called her pmd Dr. Izquierdo who referred pt to ER.
[2019-01-23] MEDS ORDERED: ALBUTEROL SULFATE 2.5 MG/3 ML NEBU NEB ONE (11:15)
[2019-01-23] MEDS ORDERED: methylPREDNISolone SOD SUCC 125 MG/2 ML VIAL IV ONE (11:15)
[2019-01-23] MEDS ORDERED: IPRATROPIUM BROMIDE 0.5 MG/2.5 ML NEBU NEB ONE (11:15)
[2019-01-23] MEDS ORDERED: ASPIRIN 81 MG TAB.CHEW PO ONE (11:15)
[2019-01-23] MEDS ORDERED: ASPIRIN 81 MG TAB.CHEW ONE (11:29)
[2019-01-23] MEDS ORDERED: methylPREDNISolone SOD SUCC 125 MG/2 ML VIAL ONE (11:29)
[2019-01-23] MEDS ORDERED: IPRATROPIUM BROMIDE 0.5 MG/2.5 ML NEBU ONE (11:30)
[2019-01-23] MEDS ORDERED: ALBUTEROL SULFATE 2.5 MG/3 ML NEBU ONE (11:30)
--- NOTE | 2019-01-23 11:34 | NUR ---
HHN TX STARTED BY BUSHING AND BROACH OPERATOR.
[2019-01-23 11:36] LABS: CREATININE 1.1 mg/dL (0.6-1.3); POTASSIUM 4.3 mmol/L (3.5-5.1)
[2019-01-23 11:38] LABS: BASOPHILS # (AUTO) 0.1 K/uL (0.0-8.0); BASOPHILS % (AUTO) 0.9 % (0.0-2.0); EOSINOPHILS % (AUTO) 0.3 % (0.0-7.0); HEMATOCRIT 37.9 % (31.2-41.9); HEMOGLOBIN 12.3 g/dL (10.9-14.3); LYMPHOCYTES # (AUTO) 1.2 K/uL (20.0-40.0); LYMPHOCYTES % (AUTO) 12.3 % (20.5-51.5); MEAN CORPUSCULAR HEMOGLOBIN 26.7 uug (24.7-32.8); MEAN CORPUSCULAR HGB CONC 33 g/dL (32.3-35.6); MONOCYTES # (AUTO) 0.7 K/uL (2.0-10.0); MONOCYTES % (AUTO) 7.1 % (0.0-11.0); NEUTROPHILS # (AUTO) 7.9 K/uL (1.8-8.9); NEUTROPHILS % (AUTO) 79.4 % (38.5-71.5); RED BLOOD CELL COUNT(AUTO) 4.62 MIL/uL (3.63-4.92); WHITE BLOOD COUNT (AUTO) 9.9 K/uL (3.8-11.8)
[2019-01-23 11:42] LABS: PLATELET COUNT (AUTO) 582 K/uL (179-408)
[2019-01-23 11:49] LABS: BILIRUBIN,DIRECT 0.1 mg/dL (0.0-0.2); BILIRUBIN,TOTAL 0.4 mg/dL (0.2-1.0); TOTAL PROTEIN, SERUM 7.4 g/dL (6.4-8.2)
[2019-01-23] MEDS ORDERED: AMLO10TA7 PO (11:54)
[2019-01-23] MEDS ORDERED: FLUT1DIS28 INH (11:54)
[2019-01-23] MEDS ORDERED: ONDA4TAB11 PO (11:54)
[2019-01-23] MEDS ORDERED: BUDESONIDE (11:54)
[2019-01-23] MEDS ORDERED: IPRA3AMP22 IH (11:54)
[2019-01-23] MEDS ORDERED: IPRA4AER IH (11:54)
[2019-01-23] MEDS ORDERED: HYDR-4077 PO (11:54)
--- NOTE | 2019-01-23 12:00 | NUR ---
Dr. Romero spoke with Dr. Izquierdo via telephone, pt to be admitted to tele. SBAR report given to Breanna CONNER via telephone.
--- NOTE | 2019-01-23 12:09 | NUR ---
Pt trans to tele floor, NAD noted.
--- NOTE | 2019-01-23 12:15 | NUR ---
RECEIVED PATIENT FOR ADMISSION 83 YEARS OLD FEMALE FROM ED TO ROOM 308 WITH DX OF CHEST PAIN AND CHF.PLACED INTO BED FIXED AND MADE COMFORTABLE PATIENT IS ALERT AND ORIENTED SPEAKS MOSTLY IRISH WITH SOME BELGIAN HER DAUGHTER IS AT THE BEDSIDE AND ASSISTED WITH TRANSLATION AND ADMISSION PROTOCOL DR OLBO IS HERE AND STATED WILL SEE PATIENT AND PLACE ORDERS.
[2019-01-23 12:20] VITALS: BP 138/61
[2019-01-23] MEDS ORDERED: ONDANSETRON 4 MG/2 ML VIAL IV PRN (12:30)
[2019-01-23] MEDS ORDERED: DEXTROSE 50% 50 ML DISP.SYRIN IV PRN (12:30)
[2019-01-23] MEDS ORDERED: ACETAMINOPHEN 325 MG TABLET PO PRN (12:30)
[2019-01-23] MEDS: ALBUTEROL SULFATE 1.25 MG/3 ML NEBU NEB SCH ×2 (13:10→19:14)
[2019-01-23] MEDS: IPRATROPIUM BROMIDE 0.5 MG/2.5 ML NEBU NEB SCH ×2 (13:10→19:14)
[2019-01-23] MEDS ORDERED: IPRATROPIUM BROMIDE 0.5 MG/2.5 ML NEBU NEB SCH (13:30)
[2019-01-23] MEDS: hydrALAZINE HCL 50 MG TABLET PO SCH ×2 (14:26→21:11)
[2019-01-23 15:38] VITALS: BP 129/68
[2019-01-23] MEDS: SUCRALFATE 1 G TABLET PO SCH (17:27)
[2019-01-23] MEDS: PANTOPRAZOLE SODIUM 40 MG TABLET.DR PO SCH (17:27)
[2019-01-23] MEDS: BLOOD SUGAR DIAGNOSTIC 1 EACH STRIP VI SCH ×2 (17:27→21:18)
[2019-01-23] MEDS: CICLOPIROX 0.77% CREAM 30 GM TUBE TP SCH (17:27)
[2019-01-23] MEDS: CALCIUM CARB/VITAMIN D 500MG-200UNITS TABLET PO SCH (17:27)
[2019-01-23] MEDS: MONTELUKAST SODIUM 10 MG TABLET PO SCH (17:27)
[2019-01-23] MEDS: INSULIN REGULAR, HUMAN 300 UNIT/3 ML VIAL SQ PRN ×2 (17:31→21:19)
--- NOTE | 2019-01-23 18:00 | NUR ---
RESTING C/O FEELS HOT REQUESTED FOR FAN PROVIDED ALSO O2 PLACED AT 1L/MAS SHE STATED THAT SHE IS HAVING SOME DIFFICULTY BREATHING SAT IS 94 STATED MORE COMFORTABLE AT THIS TIME
--- NOTE | 2019-01-23 19:20 | NUR ---
Received patient lying in bed. AAOx4, mainly Faroese speaking. In no acute distress. On O2 at 2LPM via NC in place. O2 sat at 96%. IV site on right wrist intact and patent. Sinus tachy on tele at 106/min. Safety measure initiated and call santana within reached.
[2019-01-23 20:33] VITALS: BP 123/69
[2019-01-23] MEDS ORDERED: Medication Not On Formulary EA (Quetiapine Fumarate (Seroquel) 50 MG) PO SCH (21:00)
[2019-01-23] MEDS: DOCUSATE SODIUM 100 MG CAPSULE PO SCH (21:11)
[2019-01-23] MEDS: QUETIAPINE FUMARATE 25 MG TABLET PO SCH (21:11)
[2019-01-23] MEDS: methylPREDNISolone SOD SUCC 40 MG/ML VIAL IV SCH (21:12)
[2019-01-23] MEDS: ATORVASTATIN 10 MG TABLET PO SCH (21:12)
[2019-01-23] MEDS: ZOLPIDEM 5 MG TABLET PO PRN (21:23)
--- NOTE | 2019-01-23 22:00 | NUR ---
IV site on right wrist area infiltrated. Started new IV site in right hand #24G and left FA #22G.
[2019-01-24] VITALS: BP 130/69
[2019-01-24 04:00] VITALS: BP 130/65
[2019-01-24] MEDS: IPRATROPIUM BROMIDE 0.5 MG/2.5 ML NEBU NEB SCH ×5 (07:35→19:06)
[2019-01-24 07:58] LABS: MAGNESIUM 1.8 mg/dL (1.8-2.4); PHOSPHOROUS 4.9 mg/dL (2.5-4.9); POTASSIUM 4.3 mmol/L (3.5-5.1); WHITE BLOOD COUNT (AUTO) 6.6 K/uL (3.8-11.8)
[2019-01-24 07:59] LABS: BASOPHILS % (AUTO) 0.1 % (0.0-2.0); HEMATOCRIT 32.7 % (31.2-41.9); HEMOGLOBIN 10.7 g/dL (10.9-14.3); LYMPHOCYTES # (AUTO) 0.9 K/uL (20.0-40.0); LYMPHOCYTES % (AUTO) 13.5 % (20.5-51.5); MEAN CORPUSCULAR HEMOGLOBIN 26.8 uug (24.7-32.8); MEAN CORPUSCULAR HGB CONC 33 g/dL (32.3-35.6); MEAN CORPUSCULAR VOLUME 81.6 fL (75.5-95.3); MONOCYTES # (AUTO) 0.2 K/uL (2.0-10.0); MONOCYTES % (AUTO) 2.4 % (0.0-11.0); NEUTROPHILS # (AUTO) 5.5 K/uL (1.8-8.9); PLATELET COUNT (AUTO) 534 K/uL (179-408)
[2019-01-24] MEDS: AMLODIPINE 10 MG TABLET PO SCH (08:22)
[2019-01-24] MEDS: VENLAFAXINE XR 75 MG CAP.SR.24H PO SCH (08:22)
[2019-01-24] MEDS: CALCIUM CARB/VITAMIN D 500MG-200UNITS TABLET PO SCH ×2 (08:22→17:24)
[2019-01-24] MEDS: methylPREDNISolone SOD SUCC 40 MG/ML VIAL IV SCH ×2 (08:22→20:45)
[2019-01-24] MEDS: CICLOPIROX 0.77% CREAM 30 GM TUBE TP SCH ×2 (08:22→17:36)
[2019-01-24] MEDS: CLOPIDOGREL 75 MG TABLET PO SCH (08:22)
[2019-01-24] MEDS: FLUTICASONE/VILANTEROL 1 EACH BLST.W.DEV INH SCH (08:22)
[2019-01-24] MEDS: Z GUARD REMEDY PASTE 57 GM TUBE TOP PRN (08:22)
[2019-01-24] MEDS: ALBUTEROL SULFATE 1.25 MG/3 ML NEBU NEB SCH ×4 (08:27→19:08)
[2019-01-24] MEDS ORDERED: FLUTICASONE/SALMETEROL 250/50 INHALER INH SCH (09:00)
--- NOTE | 2019-01-24 09:30 | NUR ---
ASSISTED PATIENT INTO [facility] BATHROOM WITH HER WALKER AND VOIDED AND MOVED HER BOWEL ASSISTED BACK INTO BED WILL CONTINUE TO OBSERVE.
--- NOTE | 2019-01-24 10:33 | NUR ---
DR KOHLER HERE TO SEE PATIENT WITH NO NEW ORDERS AT THIS TIME.
[2019-01-24 11:17] VITALS: BP 119/55
[2019-01-24] MEDS: BLOOD SUGAR DIAGNOSTIC 1 EACH STRIP VI SCH ×3 (11:30→20:49)
[2019-01-24] MEDS: INSULIN REGULAR, HUMAN 300 UNIT/3 ML VIAL SQ PRN ×3 (11:36→20:50)
[2019-01-24] MEDS: hydrALAZINE HCL 50 MG TABLET PO SCH ×2 (14:00→22:00)
[2019-01-24 15:27] VITALS: BP 126/59
[2019-01-24] MEDS: FLUTICASONE PROP NASAL SPRAY 16 GM BOTTLE NS SCH (15:43)
[2019-01-24] MEDS: SUCRALFATE 1 G TABLET PO SCH (16:30)
[2019-01-24] MEDS: PANTOPRAZOLE SODIUM 40 MG TABLET.DR PO SCH (17:00)
[2019-01-24] MEDS: MONTELUKAST SODIUM 10 MG TABLET PO SCH (17:24)
--- NOTE | 2019-01-24 17:52 | NUR ---
PATIENT IS RESTING AT THIS TIME DENIES SHORTNESS OF BREATH ON O2 AT THIS TIME MADE COMFORTABLE WILL CONTINUE TO OBSERVE.
--- NOTE | 2019-01-24 19:30 | NUR ---
Patient received in bed. Alert and oriented x 4. Nigerien speaking, but able to make needs know in Turkish. No C/O pain or SOB at this time. IV in right hand #24G and left FA #22G intact and patient. On 1 L NC for comfort. Patient sinus rhythm at this time. Sputum culture pending. Call light and frequently used items within reach. Will continue to monitor.
[2019-01-24 20:21] VITALS: BP 102/43
[2019-01-24] MEDS: DOCUSATE SODIUM 100 MG CAPSULE PO SCH (20:45)
[2019-01-24] MEDS: QUETIAPINE FUMARATE 25 MG TABLET PO SCH (20:45)
[2019-01-24] MEDS: ATORVASTATIN 10 MG TABLET PO SCH (20:46)
[2019-01-25] VITALS: BP 110/52
[2019-01-25] MEDS: IPRATROPIUM BROMIDE 0.5 MG/2.5 ML NEBU NEB SCH ×4 (01:37→19:58)
[2019-01-25] MEDS: ALBUTEROL SULFATE 1.25 MG/3 ML NEBU NEB SCH ×4 (01:37→19:58)
[2019-01-25 04:00] VITALS: BP 115/69
[2019-01-25] MEDS: hydrALAZINE HCL 50 MG TABLET PO SCH ×3 (06:03→21:11)
[2019-01-25] MEDS: PANTOPRAZOLE SODIUM 40 MG TABLET.DR PO SCH ×2 (06:03→16:21)
[2019-01-25] MEDS: BLOOD SUGAR DIAGNOSTIC 1 EACH STRIP VI SCH ×4 (06:31→20:33)
[2019-01-25] MEDS: SUCRALFATE 1 G TABLET PO SCH ×2 (06:31→16:21)
--- NOTE | 2019-01-25 06:37 | NUR ---
Patient maintained on 1 L of O2 for comfort during shift. Left wrist IV intact and patent at this time. Up to bathroom with minimal assist. No PRN given. BS level for this morning 128. Patient sinus rhythm when in bed, but tachy when out of bed. Call light and frequently used items within reach Will endorse to on coming shift accordingly.
[2019-01-25 07:21] LABS: BASOPHILS % (AUTO) 0.2 % (0.0-2.0); EOSINOPHILS % (AUTO) 0.1 % (0.0-7.0); HEMATOCRIT 31.9 % (31.2-41.9); HEMOGLOBIN 10.5 g/dL (10.9-14.3); LYMPHOCYTES # (AUTO) 1.3 K/uL (20.0-40.0); LYMPHOCYTES % (AUTO) 13.2 % (20.5-51.5); MEAN CORPUSCULAR HEMOGLOBIN 26.9 uug (24.7-32.8); MEAN CORPUSCULAR HGB CONC 33 g/dL (32.3-35.6); MEAN CORPUSCULAR VOLUME 81.6 fL (75.5-95.3); MONOCYTES # (AUTO) 0.7 K/uL (2.0-10.0); MONOCYTES % (AUTO) 6.6 % (0.0-11.0); NEUTROPHILS # (AUTO) 7.9 K/uL (1.8-8.9); NEUTROPHILS % (AUTO) 79.9 % (38.5-71.5); PLATELET COUNT (AUTO) 527 K/uL (179-408); WHITE BLOOD COUNT (AUTO) 9.9 K/uL (3.8-11.8)
[2019-01-25 07:33] LABS: BILIRUBIN,TOTAL 0.2 mg/dL (0.2-1.0); CREATININE 1.1 mg/dL (0.6-1.3); MAGNESIUM 1.8 mg/dL (1.8-2.4); PHOSPHOROUS 4.5 mg/dL (2.5-4.9); POTASSIUM 4.5 mmol/L (3.5-5.1); TOTAL PROTEIN, SERUM 6.3 g/dL (6.4-8.2)
[2019-01-25] MEDS: methylPREDNISolone SOD SUCC 40 MG/ML VIAL IV SCH ×2 (08:17→20:31)
[2019-01-25] MEDS: VENLAFAXINE XR 75 MG CAP.SR.24H PO SCH (08:17)
[2019-01-25] MEDS: AMLODIPINE 10 MG TABLET PO SCH (08:18)
[2019-01-25] MEDS: CLOPIDOGREL 75 MG TABLET PO SCH (08:18)
[2019-01-25] MEDS: CALCIUM CARB/VITAMIN D 500MG-200UNITS TABLET PO SCH ×2 (08:18→16:21)
[2019-01-25] MEDS: FLUTICASONE/VILANTEROL 1 EACH BLST.W.DEV INH SCH (08:22)
[2019-01-25] MEDS: FLUTICASONE PROP NASAL SPRAY 16 GM BOTTLE NS SCH (08:23)
[2019-01-25] MEDS: CICLOPIROX 0.77% CREAM 30 GM TUBE TP SCH ×2 (08:24→16:42)
--- NOTE | 2019-01-25 10:46 | NUR ---
PATIENT SEEN AND EXAMINED BY DR KOHLER WITH NO NEW ORDERS AT THIS TIME HE IS AWARE THAT PATIENT AND HER FAMILY IS REQUESTING FOR HOME OXYGEN AND HE STATED THAT BASED ON HER ROOM AIR SATS SHE WILL NOT BE ABLE TO QUALIFY.
[2019-01-25] MEDS: INSULIN REGULAR, HUMAN 300 UNIT/3 ML VIAL SQ PRN ×2 (11:30→16:24)
[2019-01-25 11:45] VITALS: BP 117/52
[2019-01-25 15:52] VITALS: BP 99/50
[2019-01-25] MEDS: MONTELUKAST SODIUM 10 MG TABLET PO SCH (17:20)
--- NOTE | 2019-01-25 19:33 | NUR ---
Alert and oriented x 4. Turkmen speaking, but able to make needs know in Australian. No C/O pain or SOB at this time. IV in right hand #24G intact and patient. On 1 L NC for comfort. Patient sinus tachy at this time. Call light and frequently used items within reach. Will continue to monitor.
[2019-01-25 20:04] VITALS: BP 120/52
[2019-01-25] MEDS: ATORVASTATIN 10 MG TABLET PO SCH (20:31)
[2019-01-25] MEDS: QUETIAPINE FUMARATE 25 MG TABLET PO SCH (20:31)
[2019-01-25] MEDS: DOCUSATE SODIUM 100 MG CAPSULE PO SCH (20:31)
[2019-01-25] MEDS: ZOLPIDEM 5 MG TABLET PO PRN (21:11)
--- NOTE | 2019-01-25 22:20 | NUR ---
Received patient lying in bed. Asleep at this time. On O2 at 1LPM via NC in place. NSR on tele at 99/min. Appears comfortable. Continue to monitor.
[2019-01-26] VITALS: BP 110/52
[2019-01-26] MEDS: ALBUTEROL SULFATE 1.25 MG/3 ML NEBU NEB SCH ×4 (01:30→19:19)
[2019-01-26] MEDS: IPRATROPIUM BROMIDE 0.5 MG/2.5 ML NEBU NEB SCH ×4 (01:30→19:19)
--- NOTE | 2019-01-26 01:40 | NUR ---
Pt asleep. No s/s of respiratory distress noted. HHN tx not given. RN Zenobia garcia.
[2019-01-26 04:00] VITALS: BP 137/62
[2019-01-26 06:00] LABS: BASOPHILS % (AUTO) 0.1 % (0.0-2.0); HEMATOCRIT 32.9 % (31.2-41.9); HEMOGLOBIN 10.8 g/dL (10.9-14.3); LYMPHOCYTES # (AUTO) 1.1 K/uL (20.0-40.0); LYMPHOCYTES % (AUTO) 11.9 % (20.5-51.5); MEAN CORPUSCULAR HEMOGLOBIN 26.9 uug (24.7-32.8); MEAN CORPUSCULAR HGB CONC 33 g/dL (32.3-35.6); MEAN CORPUSCULAR VOLUME 81.7 fL (75.5-95.3); MONOCYTES # (AUTO) 0.5 K/uL (2.0-10.0); MONOCYTES % (AUTO) 5.4 % (0.0-11.0); NEUTROPHILS # (AUTO) 7.3 K/uL (1.8-8.9); NEUTROPHILS % (AUTO) 82.6 % (38.5-71.5); PLATELET COUNT (AUTO) 554 K/uL (179-408); RED BLOOD CELL COUNT(AUTO) 4.03 MIL/uL (3.63-4.92); WHITE BLOOD COUNT (AUTO) 8.9 K/uL (3.8-11.8)
[2019-01-26] MEDS: hydrALAZINE HCL 50 MG TABLET PO SCH ×3 (06:09→21:00)
[2019-01-26] MEDS: PANTOPRAZOLE SODIUM 40 MG TABLET.DR PO SCH ×2 (06:09→17:07)
--- NOTE | 2019-01-26 06:15 | NUR ---
AAOx4, mainly Bulgarian speaking. In no acute distress. On O2 at 1LPM via NC in place. O2 sat at 97%. IV site on right wrist intact and patent. NSR on tele at 89/min. Safety measure maintained and call santana within reached.
[2019-01-26] MEDS: SUCRALFATE 1 G TABLET PO SCH ×2 (06:30→17:07)
[2019-01-26] MEDS: BLOOD SUGAR DIAGNOSTIC 1 EACH STRIP VI SCH ×4 (06:30→21:28)
[2019-01-26 06:31] LABS: BILIRUBIN,TOTAL 0.2 mg/dL (0.2-1.0); CREATININE 1.1 mg/dL (0.6-1.3); MAGNESIUM 1.8 mg/dL (1.8-2.4); PHOSPHOROUS 4.1 mg/dL (2.5-4.9); POTASSIUM 4.2 mmol/L (3.5-5.1); TOTAL PROTEIN, SERUM 6.4 g/dL (6.4-8.2)
[2019-01-26] MEDS: INSULIN REGULAR, HUMAN 300 UNIT/3 ML VIAL SQ PRN ×4 (07:59→21:32)
--- NOTE | 2019-01-26 08:00 | NUR ---
AWAKE ALERT AND ORIENTED X3 NO SS OF PAIN OR RESPIRATORY DISTRESS WITH 1 L NC SATURATING 96%
[2019-01-26] MEDS: FLUTICASONE PROP NASAL SPRAY 16 GM BOTTLE NS SCH (08:04)
[2019-01-26] MEDS: methylPREDNISolone SOD SUCC 40 MG/ML VIAL IV SCH ×2 (08:05→21:02)
[2019-01-26] MEDS: CLOPIDOGREL 75 MG TABLET PO SCH (08:05)
[2019-01-26] MEDS: VENLAFAXINE XR 75 MG CAP.SR.24H PO SCH (08:05)
[2019-01-26] MEDS: CALCIUM CARB/VITAMIN D 500MG-200UNITS TABLET PO SCH ×2 (08:05→17:07)
[2019-01-26] MEDS: AMLODIPINE 10 MG TABLET PO SCH (08:06)
[2019-01-26] MEDS: CICLOPIROX 0.77% CREAM 30 GM TUBE TP SCH ×2 (08:06→17:08)
[2019-01-26] MEDS: FLUTICASONE/VILANTEROL 1 EACH BLST.W.DEV INH SCH (08:07)
[2019-01-26] MEDS: Z GUARD REMEDY PASTE 57 GM TUBE TOP PRN (08:07)
--- NOTE | 2019-01-26 10:30 | NUR ---
SEEN BY DR LOBO AND DR KOHLER FOR FOLLOW-UP SEE NOTES
[2019-01-26 11:18] VITALS: BP 116/56
[2019-01-26 15:22] VITALS: BP 131/55
[2019-01-26] MEDS: MONTELUKAST SODIUM 10 MG TABLET PO SCH (17:07)
--- NOTE | 2019-01-26 17:48 | NUR ---
ACCEPTED FOR ARU FOR CONTINUITY OF CARE BUT PATIENT REFUSED. METAL STAMPER AWARE. NO HYPO OR HYPERGLYCEMIA NOTED
[2019-01-26 19:39] VITALS: BP 125/53
--- NOTE | 2019-01-26 20:00 | NUR ---
Patient received into care, sitting up in bed, resting comfortably. Patient is alert/oriented x 2 and has no complaints of pain or discomfort at this time. Call light and personal items are within reach. All safety and fall precaution measures are in place. Will continue to monitor and assess.
[2019-01-26] MEDS: QUETIAPINE FUMARATE 25 MG TABLET PO SCH (21:00)
[2019-01-26] MEDS: ATORVASTATIN 10 MG TABLET PO SCH (21:01)
[2019-01-26] MEDS: DOCUSATE SODIUM 100 MG CAPSULE PO SCH (21:01)
[2019-01-26] MEDS: ZOLPIDEM 5 MG TABLET PO PRN (21:49)
[2019-01-27] MEDS: ALBUTEROL SULFATE 1.25 MG/3 ML NEBU NEB SCH ×3 (01:00→13:08)
[2019-01-27] MEDS: IPRATROPIUM BROMIDE 0.5 MG/2.5 ML NEBU NEB SCH ×3 (01:00→13:08)
[2019-01-27 05:09] VITALS: BP 143/59
[2019-01-27] MEDS: hydrALAZINE HCL 50 MG TABLET PO SCH ×2 (06:29→13:31)
[2019-01-27] MEDS: PANTOPRAZOLE SODIUM 40 MG TABLET.DR PO SCH ×2 (06:29→17:21)
[2019-01-27] MEDS: SUCRALFATE 1 G TABLET PO SCH ×2 (06:30→16:23)
[2019-01-27] MEDS: BLOOD SUGAR DIAGNOSTIC 1 EACH STRIP VI SCH ×3 (06:38→16:26)
[2019-01-27] MEDS ORDERED: PRED20TA PO (07:10)
--- NOTE | 2019-01-27 07:20 | NUR ---
Received patient in Bed, awake and verbally responsive. No signs of distress noted. No SOB. No complain of discomfort noted. Will continue to monitor.
[2019-01-27] MEDS: CLOPIDOGREL 75 MG TABLET PO SCH (08:24)
[2019-01-27] MEDS: FLUTICASONE PROP NASAL SPRAY 16 GM BOTTLE NS SCH (08:24)
[2019-01-27] MEDS: methylPREDNISolone SOD SUCC 40 MG/ML VIAL IV SCH (08:24)
[2019-01-27] MEDS: VENLAFAXINE XR 75 MG CAP.SR.24H PO SCH (08:25)
[2019-01-27] MEDS: AMLODIPINE 10 MG TABLET PO SCH (08:25)
[2019-01-27] MEDS: CALCIUM CARB/VITAMIN D 500MG-200UNITS TABLET PO SCH ×2 (08:25→17:21)
[2019-01-27] MEDS: CICLOPIROX 0.77% CREAM 30 GM TUBE TP SCH ×2 (08:28→17:22)
[2019-01-27] MEDS: FLUTICASONE/VILANTEROL 1 EACH BLST.W.DEV INH SCH (08:28)
[2019-01-27 11:16] VITALS: BP 109/69
[2019-01-27] MEDS: INSULIN REGULAR, HUMAN 300 UNIT/3 ML VIAL SQ PRN (12:05)
[2019-01-27 15:12] VITALS: BP 120/51
[2019-01-27] MEDS: MONTELUKAST SODIUM 10 MG TABLET PO SCH (17:21)
--- NOTE | 2019-01-27 17:38 | NUR ---
PATIENT DISCHARGED HOME. REVIEWED D/C INSTRUCTIONS WITH PATIENTS DAUGHTER. PATIENTS DAUGHTER VERBALLY UNDERSTANDS. REMOVED PATIENTS IV, HELPED PATIENT GET DRESSED AND TOOK PATIENT DOWN VIA WHEELCHAIR.
== END 2019-01-27 17:30 | disposition home or self-care (01) | DRG 190 ==
LOC: ER 10:56 → TELE3 12:07 → MEDSURG3 01-26 11:40
PROVIDERS: ADMIT Internal Medicine; ATTEND Internal Medicine
DX: J44.1 Chronic obstructive pulmonary disease with (acute) exacerbation (principal); I50.33 Acute on chronic diastolic (congestive) heart failure; E22.2 Syndrome of inappropriate secretion of antidiuretic hormone; I13.0 Hypertensive heart and chronic kidney disease with heart failure and stage 1 through stage 4 chronic kidney disease, or unspecified chronic kidney disease; J98.11 Atelectasis; E27.40 Unspecified adrenocortical insufficiency; F32.9 Major depressive disorder, single episode, unspecified; Z88.0 Allergy status to penicillin; E78.5 Hyperlipidemia, unspecified; E11.22 Type 2 diabetes mellitus with diabetic chronic kidney disease; N18.2 Chronic kidney disease, stage 2 (mild); J98.4 Other disorders of lung; M19.90 Unspecified osteoarthritis, unspecified site; M85.80 Other specified disorders of bone density and structure, unspecified site; K22.8 Other specified diseases of esophagus; K44.9 Diaphragmatic hernia without obstruction or gangrene; K21.9 Gastro-esophageal reflux disease without esophagitis; I70.0 Atherosclerosis of aorta; Z79.02 Long term (current) use of antithrombotics/antiplatelets; Z79.51 Long term (current) use of inhaled steroids; Z79.899 Other long term (current) drug therapy; I25.10 Atherosclerotic heart disease of native coronary artery without angina pectoris; F03.90 Unspecified dementia, unspecified severity, without behavioral disturbance, psychotic disturbance, mood disturbance, and anxiety; E66.9 Obesity, unspecified; K22.70 Barrett's esophagus without dysplasia
CPT/HCPCS: 36415; 70030-TC; 71045; 83735; 84100; 85025; 87070; 93005; 94640; A4663; G0378; J1815; J2920; J2930; J3535; J3590

== ENCOUNTER 2019-01-26 14:58 | Inpatient (IN) | payer MEDICARE, OTHER ==
[~2019-01-26] VITALS: Ht 134.6 cm; Wt 56.8 kg
[2019-02-16 18:30] VITALS: BP 117/62
--- NOTE | 2019-02-16 20:00 | NUR ---
Admitting Notes Patient received into care via [facility]. Patient is Swazi speaking but does understand some French. Patient is alert/oriented x3 and has no complaints of pain or discomfort at this time. All pertinent assessments completed. Patient has history of vertigo, GERD, hiatal hernia that has been corrected by surgery, SIADH, cataracts that were corrected by surgery, and hysterectomy. All safety and fall precaution measures are in place. Call light and personal items are within reach at all times. Will continue to monitor and assess.
[2019-02-16 20:08] VITALS: BP 146/56
[2019-02-16 20:12] VITALS: BP 121/56
[2019-02-16] MEDS ORDERED: ONDANSETRON ODT 4 MG TAB.RAPDIS SL PRN (20:30)
[2019-02-16] MEDS ORDERED: LEVOFLOXACIN IV SCH (21:00)
[2019-02-16] MEDS ORDERED: [UNRECOGNIZED DRUG - OTHER] IV SCH (21:00)
[2019-02-16] MEDS: LEVOFLOXACIN 250MG /D5W 250 MG in PREMIXED 1 EACH IV SCH (21:37)
[2019-02-16] MEDS: methylPREDNISolone SOD SUCC 40 MG/ML VIAL IV SCH (21:38)
[2019-02-16] MEDS: DOCUSATE SODIUM 100 MG CAPSULE PO SCH (21:38)
[2019-02-16] MEDS: MONTELUKAST SODIUM 10 MG TABLET PO SCH (21:38)
[2019-02-16] MEDS: QUETIAPINE FUMARATE 25 MG TABLET PO SCH (21:39)
--- NOTE | 2019-02-16 23:00 | NUR ---
Hand off report given to nurse Ananya
--- NOTE | 2019-02-16 23:47 | NUR ---
REPORT RECEIVED FROM DALILA MURPHY. PATIENTS RECEIVED ASLEEP. NO DISTRESS NOTED. WILL CONTINUE TO MONITOR.
[2019-02-17] MEDS: IPRATROPIUM BROMIDE 0.5 MG/2.5 ML NEBU NEB SCH ×4 (00:30→20:06)
[2019-02-17] MEDS: ALBUTEROL SULFATE 1.25 MG/3 ML NEBU NEB SCH ×4 (00:30→20:06)
[2019-02-17] MEDS ORDERED: Z GUARD REMEDY PASTE 57 GM TUBE TOP PRN (01:00)
[2019-02-17 04:14] VITALS: BP 132/64
[2019-02-17] MEDS ORDERED: SUCRALFATE 1 G TABLET ONE (06:40)
[2019-02-17] MEDS: SUCRALFATE 1 G TABLET PO SCH ×3 (06:42→16:29)
[2019-02-17] MEDS ORDERED: SUCRALFATE 1 G/10 ML LIQUID UDC PO SCH (07:30)
[2019-02-17 07:39] VITALS: BP 135/67
--- NOTE | 2019-02-17 07:45 | NUR ---
Patient in bed, awake and verbally responsive. Icelandic speaking. No signs of distress noted. No SOB. No complain of Pain or discomfort. kept the call light within easy reach. Will continue to monitor.
[2019-02-17] MEDS: FLUTICASONE/VILANTEROL 1 EACH BLST.W.DEV IH SCH (08:08)
[2019-02-17] MEDS: VENLAFAXINE XR 75 MG TAB.ER.24H PO SCH (08:09)
[2019-02-17] MEDS: MECLIZINE HCL 25 MG TABLET PO SCH ×3 (08:09→16:29)
[2019-02-17] MEDS: methylPREDNISolone SOD SUCC 40 MG/ML VIAL IV SCH (08:09)
[2019-02-17] MEDS: ATORVASTATIN 10 MG TABLET PO SCH (08:10)
[2019-02-17] MEDS: CALCIUM CARB/VITAMIN D 500MG-200UNITS TABLET PO SCH ×2 (08:10→16:54)
[2019-02-17] MEDS: PANTOPRAZOLE SODIUM 40 MG TABLET.DR PO SCH ×2 (08:10→16:30)
[2019-02-17] MEDS: AMLODIPINE 10 MG TABLET PO SCH (08:10)
[2019-02-17] MEDS: CLOPIDOGREL 75 MG TABLET PO SCH (08:10)
[2019-02-17] MEDS: hydrALAZINE HCL 50 MG TABLET PO SCH ×3 (08:11→16:30)
[2019-02-17] MEDS: CICLOPIROX 0.77% CREAM 30 GM TUBE TP SCH ×2 (08:16→16:34)
[2019-02-17] MEDS ORDERED: predniSONE 20 MG TABLET PO SCH (09:00)
--- NOTE | 2019-02-17 14:22 | NUR ---
INTERDISCIPLINARY TEAM CONFERENCE
[2019-02-17 15:44] VITALS: BP 123/55
[2019-02-17] MEDS: predniSONE 20 MG TABLET PO SCH (17:17)
--- NOTE | 2019-02-17 18:25 | NUR ---
Patient is awake and verbally responsive, Kyrgyz speaking. No signs of distress noted. No complain of pain or discomfort. Afebrile. All due medications given as ordered. kept clean and comfortable. kept the call light within easy reach. Will endorse to Oncoming Nurse.
--- NOTE | 2019-02-17 19:35 | NUR ---
Awake, receiving breathing treatment during initial rounds. Latvian speaking only. Denies any pain/discomforts at this time. Safety measure and fall precaution maintained. Continue care as planned.
[2019-02-17] MEDS: LEVOFLOXACIN 250MG /D5W 250 MG in PREMIXED 1 EACH IV SCH (20:28)
[2019-02-17] MEDS: QUETIAPINE FUMARATE 25 MG TABLET PO SCH (20:29)
[2019-02-17] MEDS: DOCUSATE SODIUM 100 MG CAPSULE PO SCH (20:29)
[2019-02-17] MEDS: MONTELUKAST SODIUM 10 MG TABLET PO SCH (20:29)
[2019-02-17 20:41] VITALS: BP 115/53
[2019-02-18] MEDS: ALBUTEROL SULFATE 1.25 MG/3 ML NEBU NEB SCH ×4 (01:04→20:05)
[2019-02-18] MEDS: IPRATROPIUM BROMIDE 0.5 MG/2.5 ML NEBU NEB SCH ×4 (01:05→20:01)
[2019-02-18 06:01] VITALS: BP 150/67
--- NOTE | 2019-02-18 06:46 | NUR ---
Shift End Report: VS stable. Slept in between care. No complaint presented. All needs attended and met. No significant event reported all night. Continue current rehab plan of care.
[2019-02-18] MEDS: SUCRALFATE 1 G TABLET PO SCH ×3 (07:04→16:29)
--- NOTE | 2019-02-18 07:30 | NUR ---
Received patient in Bed, awake and verbally responsive. Armenian Speaking. Breathing treatment given as ordered. No signs of distress noted. No complain of Pain or discomfort. kept the call light within easy reach. Will continue to monitor.
[2019-02-18] MEDS: predniSONE 20 MG TABLET PO SCH ×2 (08:01→17:11)
[2019-02-18 08:03] VITALS: BP 146/57
[2019-02-18] MEDS: FLUTICASONE/VILANTEROL 1 EACH BLST.W.DEV IH SCH (08:09)
[2019-02-18] MEDS: AMLODIPINE 10 MG TABLET PO SCH (08:11)
[2019-02-18] MEDS: CALCIUM CARB/VITAMIN D 500MG-200UNITS TABLET PO SCH ×2 (08:11→16:56)
[2019-02-18] MEDS: ATORVASTATIN 10 MG TABLET PO SCH (08:11)
[2019-02-18] MEDS: CLOPIDOGREL 75 MG TABLET PO SCH (08:11)
[2019-02-18] MEDS: MECLIZINE HCL 25 MG TABLET PO SCH ×3 (08:11→16:56)
[2019-02-18] MEDS: PANTOPRAZOLE SODIUM 40 MG TABLET.DR PO SCH ×2 (08:11→16:56)
[2019-02-18] MEDS: VENLAFAXINE XR 75 MG TAB.ER.24H PO SCH (08:11)
[2019-02-18] MEDS: hydrALAZINE HCL 50 MG TABLET PO SCH ×3 (08:12→16:57)
[2019-02-18] MEDS: CICLOPIROX 0.77% CREAM 30 GM TUBE TP SCH ×2 (08:12→16:57)
[2019-02-18 14:41] VITALS: BP 107/51
--- NOTE | 2019-02-18 18:38 | NUR ---
Patient in bed, awake and verbally responsive. No signs of distress noted. No SOB. No complain of Pain or discomfort. Physical therapy tolerated well. All due medications given as ordered. All needs attended and met. kept clean and comfortable. Kept the call light within easy reach. Will endorse to Oncoming Nurse.
--- NOTE | 2019-02-18 19:10 | NUR ---
Received patient awake in bed, Japanese speaking only, AO x 3. Patient in no apparent distress, does not complain of any pain or discomfort at the moment. Call light within reach. Immediate needs attended.
[2019-02-18 19:40] VITALS: BP 118/44
[2019-02-18] MEDS: LEVOFLOXACIN 250MG /D5W 250 MG in PREMIXED 1 EACH IV SCH (20:12)
[2019-02-18] MEDS: MONTELUKAST SODIUM 10 MG TABLET PO SCH (20:13)
[2019-02-18] MEDS: DOCUSATE SODIUM 100 MG CAPSULE PO SCH (20:13)
[2019-02-18] MEDS: QUETIAPINE FUMARATE 25 MG TABLET PO SCH (20:13)
--- NOTE | 2019-02-18 22:35 | NUR ---
CONTACTED DR. LOBO BECAUSE PATIENT REQUESTING MEDICATION FOR SLEEP. ORDERED AMBIEN 5MG HS PRN.
[2019-02-18] MEDS: ZOLPIDEM 5 MG TABLET PO PRN (22:52)
[2019-02-19] MEDS: ALBUTEROL SULFATE 1.25 MG/3 ML NEBU NEB SCH ×5 (00:35→20:17)
[2019-02-19] MEDS: IPRATROPIUM BROMIDE 0.5 MG/2.5 ML NEBU NEB SCH ×4 (00:36→20:17)
[2019-02-19 04:51] VITALS: BP 129/64
[2019-02-19] MEDS: SUCRALFATE 1 G TABLET PO SCH ×3 (06:32→18:05)
--- NOTE | 2019-02-19 06:36 | NUR ---
PATIENT SLEPT WELL THROUGHOUT THE NIGHT. TOLERATED MEDICATIONS WITHOUT ADVERSE EFFECTS. VITALS WITHIN NORMAL. NEEDS ATTENDED. WILL ENDORSE TO ONCOMING SHIFT.
[2019-02-19 06:52] LABS: PHOSPHOROUS 4.4 mg/dL (2.5-4.9)
[2019-02-19 06:53] LABS: BASOPHILS % (AUTO) 0.1 % (0.0-2.0); EOSINOPHILS % (AUTO) 0.1 % (0.0-7.0); HEMATOCRIT 31.7 % (31.2-41.9); HEMOGLOBIN 10.6 g/dL (10.9-14.3); LYMPHOCYTES # (AUTO) 1.2 K/uL (20.0-40.0); LYMPHOCYTES % (AUTO) 13.6 % (20.5-51.5); MEAN CORPUSCULAR HEMOGLOBIN 26.9 uug (24.7-32.8); MEAN CORPUSCULAR HGB CONC 34 g/dL (32.3-35.6); MEAN CORPUSCULAR VOLUME 80.4 fL (75.5-95.3); MONOCYTES # (AUTO) 0.6 K/uL (2.0-10.0); MONOCYTES % (AUTO) 6.8 % (0.0-11.0); NEUTROPHILS # (AUTO) 6.8 K/uL (1.8-8.9); NEUTROPHILS % (AUTO) 79.4 % (38.5-71.5); PLATELET COUNT (AUTO) 454 K/uL (179-408); RED BLOOD CELL COUNT(AUTO) 3.94 MIL/uL (3.63-4.92); WHITE BLOOD COUNT (AUTO) 8.5 K/uL (3.8-11.8)
[2019-02-19 08:00] VITALS: BP 154/82
[2019-02-19 08:31] LABS: BAND % (MANUAL) 1 % (0-10); LYMPHOCYTES % (MANUAL) 13 % (20-40); MONOCYTES % (MANUAL) 6 % (2-10); MYELOCYTES % 1 % (0-0); NEUTROPHILS % (MANUAL) 79 % (42-75)
[2019-02-19] MEDS: predniSONE 20 MG TABLET PO SCH ×2 (09:49→18:02)
[2019-02-19] MEDS: FLUTICASONE/VILANTEROL 1 EACH BLST.W.DEV IH SCH (09:49)
[2019-02-19] MEDS: hydrALAZINE HCL 50 MG TABLET PO SCH ×3 (09:50→18:04)
[2019-02-19] MEDS: MECLIZINE HCL 25 MG TABLET PO SCH ×3 (09:50→18:05)
[2019-02-19] MEDS: VENLAFAXINE XR 75 MG TAB.ER.24H PO SCH (09:51)
[2019-02-19] MEDS: AMLODIPINE 10 MG TABLET PO SCH (09:51)
[2019-02-19] MEDS: ATORVASTATIN 10 MG TABLET PO SCH (09:51)
[2019-02-19] MEDS: CLOPIDOGREL 75 MG TABLET PO SCH (09:57)
[2019-02-19] MEDS: CALCIUM CARB/VITAMIN D 500MG-200UNITS TABLET PO SCH ×2 (09:57→18:04)
[2019-02-19] MEDS: CICLOPIROX 0.77% CREAM 30 GM TUBE TP SCH ×2 (09:57→18:04)
[2019-02-19] MEDS: PANTOPRAZOLE SODIUM 40 MG TABLET.DR PO SCH ×2 (09:57→18:04)
--- NOTE | 2019-02-19 16:21 | NUR ---
INDIVIDUALIZE OVERALL PLAN OF CARE
--- NOTE | 2019-02-19 16:22 | NUR ---
INDIVIDUALIZE OVERALL PLAN OF CARE
[2019-02-19 16:49] VITALS: BP 117/66
--- NOTE | 2019-02-19 19:45 | NUR ---
Received patient while sitting in the wheelchair, watching TV. AAO x3. Not in acute distress or SOB. On room air. Able to make needs known. Bengali speaking. IV line on her right wrist, flushed, patent, no sign of inflammation. Physical assessment done. Fall prevention observed. Safety measures maintained. Bed in low and lock position, alarm on, side rails up x2 for safety. Call light and frequently used items within reach. Continue to monitor.
[2019-02-19] MEDS: DOCUSATE SODIUM 100 MG CAPSULE PO SCH (20:07)
[2019-02-19] MEDS: LEVOFLOXACIN 250 MG TABLET PO SCH (20:07)
[2019-02-19] MEDS: MONTELUKAST SODIUM 10 MG TABLET PO SCH (20:07)
[2019-02-19 20:10] VITALS: BP 114/60
[2019-02-19] MEDS: QUETIAPINE FUMARATE 25 MG TABLET PO SCH (20:12)
[2019-02-19] MEDS: ZOLPIDEM 5 MG TABLET PO PRN (21:25)
--- NOTE | 2019-02-19 21:30 | NUR ---
Patient asked for sleeping pill. PRN Ambien 5 mg tab administered. Continue to monitor.
[2019-02-20] MEDS: IPRATROPIUM BROMIDE 0.5 MG/2.5 ML NEBU NEB SCH ×4 (00:30→19:59)
[2019-02-20] MEDS: ALBUTEROL SULFATE 1.25 MG/3 ML NEBU NEB SCH ×4 (00:30→19:59)
[2019-02-20 04:30] VITALS: BP 131/76
[2019-02-20] MEDS: SUCRALFATE 1 G TABLET PO SCH ×3 (06:41→17:30)
[2019-02-20 08:00] VITALS: BP 147/64
[2019-02-20] MEDS: MECLIZINE HCL 25 MG TABLET PO SCH ×3 (09:40→17:31)
[2019-02-20] MEDS: ERGOCALCIFEROL 50,000 UNIT CAPSULE PO SCH (09:40)
[2019-02-20] MEDS: CLOPIDOGREL 75 MG TABLET PO SCH (09:41)
[2019-02-20] MEDS: predniSONE 20 MG TABLET PO SCH (09:41)
[2019-02-20] MEDS: CALCIUM CARB/VITAMIN D 500MG-200UNITS TABLET PO SCH ×2 (09:41→17:31)
[2019-02-20] MEDS: ATORVASTATIN 10 MG TABLET PO SCH (09:41)
[2019-02-20] MEDS: PANTOPRAZOLE SODIUM 40 MG TABLET.DR PO SCH ×2 (09:41→17:31)
[2019-02-20] MEDS: VENLAFAXINE XR 75 MG TAB.ER.24H PO SCH (09:41)
[2019-02-20] MEDS: AMLODIPINE 10 MG TABLET PO SCH (09:42)
[2019-02-20] MEDS: hydrALAZINE HCL 50 MG TABLET PO SCH ×3 (09:42→17:33)
[2019-02-20] MEDS: FLUTICASONE/VILANTEROL 1 EACH BLST.W.DEV IH SCH (09:42)
[2019-02-20] MEDS: CICLOPIROX 0.77% CREAM 30 GM TUBE TP SCH ×2 (09:43→17:31)
--- NOTE | 2019-02-20 16:15 | NUR ---
Patient noted sitting up in bed, no complaints of pain, auditory rales noted during inspiration and expiration, findings are consistent with admission diagnoses, call light in reach, bed locked and in lowest position
[2019-02-20 16:56] VITALS: BP 142/70
--- NOTE | 2019-02-20 19:45 | NUR ---
PATIENT ALERT ORIENTED, NO SOB NO CHEST PAIN, PATIENT HAS NO COMPLAIN OF PAIN AT THIS TIME. PATIENT ROOM AIR NO DESATURATION NOTED, ASSISTED WITH TOILETING, CONT TO MONITOR.
[2019-02-20] MEDS: MONTELUKAST SODIUM 10 MG TABLET PO SCH (20:31)
[2019-02-20] MEDS: LEVOFLOXACIN 250 MG TABLET PO SCH (20:31)
[2019-02-20] MEDS: DOCUSATE SODIUM 100 MG CAPSULE PO SCH (20:31)
[2019-02-20] MEDS: QUETIAPINE FUMARATE 25 MG TABLET PO SCH (20:31)
[2019-02-20 20:53] VITALS: BP 127/64
[2019-02-20] MEDS: ZOLPIDEM 5 MG TABLET PO PRN (22:13)
[2019-02-21] MEDS: IPRATROPIUM BROMIDE 0.5 MG/2.5 ML NEBU NEB SCH ×4 (00:30→19:42)
[2019-02-21] MEDS: ALBUTEROL SULFATE 1.25 MG/3 ML NEBU NEB SCH ×4 (00:30→19:43)
[2019-02-21 05:15] VITALS: BP 152/72
--- NOTE | 2019-02-21 05:40 | NUR ---
PATIENT SLEPT MOST OF THE NIGHT, NO SOB NO CHEST PAIN, PATIENT ON ROOM AIR NO S/S OF DESATURATION NOTED. PATIENT HAS NO COMPLAIN OF PAIN OR DISCOMFORT. PATIENT ASSISTED WITH TOILETING, RENDERED GOOD CARLOS ALBERTO CARE, CALL LIGHT WITHIN REACH.
[2019-02-21] MEDS: SUCRALFATE 1 G TABLET PO SCH ×3 (06:33→16:37)
[2019-02-21 07:41] VITALS: BP 140/66
--- NOTE | 2019-02-21 08:00 | NUR ---
Received patient in Bed, awake and verbally responsive. Jordanian Speaking.No signs of distress noted. No SOB noted.No complain of Pain or discomfort. IV on right wrist is infiltrated, and removed. Kept the call light within easy reach. Will continue to monitor.
[2019-02-21] MEDS: CALCIUM CARB/VITAMIN D 500MG-200UNITS TABLET PO SCH ×2 (08:48→16:37)
[2019-02-21] MEDS: PANTOPRAZOLE SODIUM 40 MG TABLET.DR PO SCH ×2 (08:50→16:37)
[2019-02-21] MEDS: CLOPIDOGREL 75 MG TABLET PO SCH (08:50)
[2019-02-21] MEDS: predniSONE 20 MG TABLET PO SCH (08:50)
[2019-02-21] MEDS: ATORVASTATIN 10 MG TABLET PO SCH (08:50)
[2019-02-21] MEDS: MECLIZINE HCL 25 MG TABLET PO SCH ×3 (08:50→16:37)
[2019-02-21] MEDS: VENLAFAXINE XR 75 MG TAB.ER.24H PO SCH (08:51)
[2019-02-21] MEDS: AMLODIPINE 10 MG TABLET PO SCH (08:51)
[2019-02-21] MEDS: CICLOPIROX 0.77% CREAM 30 GM TUBE TP SCH ×2 (08:52→16:39)
[2019-02-21] MEDS: hydrALAZINE HCL 50 MG TABLET PO SCH ×3 (08:52→16:38)
[2019-02-21] MEDS: FLUTICASONE/VILANTEROL 1 EACH BLST.W.DEV IH SCH (08:52)
[2019-02-21 15:42] VITALS: BP 110/59
--- NOTE | 2019-02-21 18:00 | NUR ---
PT RESTING COMFORTABLY IN BED. NO SIGNS OF ACUTE DISTRESS OR SOB. IV REMOVED IT INFILTRATED. PER DR PENNY DO NOT START ANOTHER IV, PT HAS NO IV MEDS ORDERED. ABX DC'd PER . BED LOCKED AND IN LOW POSITION. BED ALARM ON. CALL LIGHT WITHIN REACH. PT AWAKE AND PLEASANT. A+O X4. PT IS DIET AND MEDICATION COMPLIANT. PT TAKES PO MEDS WITH APPLE SAUCE. WILL GIVE REPORT ACCORDINGLY TO INCOMING SHIFT.
--- NOTE | 2019-02-21 19:35 | NUR ---
PT'S ON BED AWAKE, ALERT AND RESPONSIVE , IRISH SPEAKING , NOT IN RESPIRATORY DISTRESS , NO C/O PAIN NOR DISCOMFORT AT THIS TIME. FAMILY AT THE BEDSIDE DURING NURSING ROUNDS.
[2019-02-21 21:33] VITALS: BP 108/60
[2019-02-21] MEDS: DOCUSATE SODIUM 100 MG CAPSULE PO SCH (21:46)
[2019-02-21] MEDS: MONTELUKAST SODIUM 10 MG TABLET PO SCH (21:46)
[2019-02-21] MEDS: QUETIAPINE FUMARATE 25 MG TABLET PO SCH (21:47)
[2019-02-22] MEDS: ALBUTEROL SULFATE 1.25 MG/3 ML NEBU NEB SCH ×4 (01:30→18:51)
[2019-02-22] MEDS: IPRATROPIUM BROMIDE 0.5 MG/2.5 ML NEBU NEB SCH ×4 (01:30→18:51)
[2019-02-22 06:22] VITALS: BP 152/66
[2019-02-22] MEDS: SUCRALFATE 1 G TABLET PO SCH ×3 (06:23→16:09)
[2019-02-22 07:33] LABS: BASOPHILS % (AUTO) 0.4 % (0.0-2.0); EOSINOPHILS # (AUTO) 0.2 K/uL (0.0-0.7); EOSINOPHILS % (AUTO) 1.6 % (0.0-7.0); HEMATOCRIT 32.8 % (31.2-41.9); HEMOGLOBIN 11.1 g/dL (10.9-14.3); LYMPHOCYTES # (AUTO) 2.4 K/uL (20.0-40.0); LYMPHOCYTES % (AUTO) 25.9 % (20.5-51.5); MEAN CORPUSCULAR HEMOGLOBIN 27.6 uug (24.7-32.8); MEAN CORPUSCULAR HGB CONC 34 g/dL (32.3-35.6); MEAN CORPUSCULAR VOLUME 81.7 fL (75.5-95.3); MONOCYTES % (AUTO) 10.5 % (0.0-11.0); NEUTROPHILS # (AUTO) 5.8 K/uL (1.8-8.9); NEUTROPHILS % (AUTO) 61.6 % (38.5-71.5); PLATELET COUNT (AUTO) 439 K/uL (179-408); RED BLOOD CELL COUNT(AUTO) 4.02 MIL/uL (3.63-4.92); WHITE BLOOD COUNT (AUTO) 9.4 K/uL (3.8-11.8)
--- NOTE | 2019-02-22 07:33 | NUR ---
SLEPT WELL DURING THE SHIFT , NO C/O PAIN NOR DISCOMFORT.
[2019-02-22 07:44] LABS: CREATININE 0.9 mg/dL (0.6-1.3); MAGNESIUM 1.9 mg/dL (1.8-2.4); POTASSIUM 3.6 mmol/L (3.5-5.1)
--- NOTE | 2019-02-22 08:00 | NUR ---
Received patient awake in bed. AAOx4. Mainly Icelandic speaking but able to verbalize basic needs in Angolan. In no acute distress. Denies pain or discomfort. Safety measures implemented. Will continue to monitor.
[2019-02-22] MEDS: ATORVASTATIN 10 MG TABLET PO SCH (08:11)
[2019-02-22] MEDS: PANTOPRAZOLE SODIUM 40 MG TABLET.DR PO SCH ×2 (08:12→16:09)
[2019-02-22] MEDS: CALCIUM CARB/VITAMIN D 500MG-200UNITS TABLET PO SCH ×2 (08:12→16:09)
[2019-02-22] MEDS: AMLODIPINE 10 MG TABLET PO SCH (08:12)
[2019-02-22] MEDS: hydrALAZINE HCL 50 MG TABLET PO SCH ×3 (08:12→16:09)
[2019-02-22] MEDS: MECLIZINE HCL 25 MG TABLET PO SCH ×3 (08:12→16:09)
[2019-02-22] MEDS: CICLOPIROX 0.77% CREAM 30 GM TUBE TP SCH ×2 (08:13→16:10)
[2019-02-22] MEDS: predniSONE 20 MG TABLET PO SCH (08:13)
[2019-02-22] MEDS: VENLAFAXINE XR 75 MG TAB.ER.24H PO SCH (08:13)
[2019-02-22] MEDS: CLOPIDOGREL 75 MG TABLET PO SCH (08:13)
[2019-02-22] MEDS: FLUTICASONE/VILANTEROL 1 EACH BLST.W.DEV IH SCH (08:13)
[2019-02-22 08:57] VITALS: BP 140/67
--- NOTE | 2019-02-22 17:57 | NUR ---
Patient resting comfortably in chair. Family at bedside. Denies pain. No SOB or discomfort noted. Will endorse care accordingly.
--- NOTE | 2019-02-22 19:30 | NUR ---
Awake, sitting in a chair, daughter at bedside. Denies any pain/discomforts at this time. No s/s of respiratory distress noted. Safety measure and fall precaution maintained. Continue care as planned.
[2019-02-22 19:54] VITALS: BP 111/62
[2019-02-22] MEDS: MONTELUKAST SODIUM 10 MG TABLET PO SCH (20:39)
[2019-02-22] MEDS: QUETIAPINE FUMARATE 25 MG TABLET PO SCH (20:39)
[2019-02-22] MEDS: DOCUSATE SODIUM 100 MG CAPSULE PO SCH (20:39)
[2019-02-23] MEDS: IPRATROPIUM BROMIDE 0.5 MG/2.5 ML NEBU NEB SCH ×4 (00:30→19:12)
[2019-02-23] MEDS: ALBUTEROL SULFATE 1.25 MG/3 ML NEBU NEB SCH ×4 (00:30→19:12)
[2019-02-23 04:36] VITALS: BP 143/54
[2019-02-23] MEDS: SUCRALFATE 1 G TABLET PO SCH ×3 (05:55→16:11)
--- NOTE | 2019-02-23 06:51 | NUR ---
Shift End Report: VS stable. Slept good. No complaint presented all night. All needs attended and met. No significant event reported. Continue current rehab plan of care.
[2019-02-23] MEDS ORDERED: predniSONE 20 MG TABLET PO SCH (08:00)
[2019-02-23] MEDS: hydrALAZINE HCL 50 MG TABLET PO SCH ×3 (08:58→16:12)
[2019-02-23] MEDS: FLUTICASONE/VILANTEROL 1 EACH BLST.W.DEV IH SCH (08:58)
[2019-02-23] MEDS: VENLAFAXINE XR 75 MG TAB.ER.24H PO SCH (08:59)
[2019-02-23] MEDS: CLOPIDOGREL 75 MG TABLET PO SCH (08:59)
[2019-02-23] MEDS: AMLODIPINE 10 MG TABLET PO SCH (08:59)
[2019-02-23] MEDS: CALCIUM CARB/VITAMIN D 500MG-200UNITS TABLET PO SCH ×2 (08:59→16:11)
[2019-02-23] MEDS: predniSONE 10 MG TABLET PO SCH (08:59)
[2019-02-23] MEDS: PANTOPRAZOLE SODIUM 40 MG TABLET.DR PO SCH ×2 (09:00→16:11)
[2019-02-23] MEDS: CICLOPIROX 0.77% CREAM 30 GM TUBE TP SCH ×2 (09:00→16:12)
[2019-02-23] MEDS: MECLIZINE HCL 25 MG TABLET PO SCH ×3 (09:00→16:11)
[2019-02-23] MEDS: ATORVASTATIN 10 MG TABLET PO SCH (09:00)
[2019-02-23 10:06] VITALS: BP 127/50
--- NOTE | 2019-02-23 14:57 | NUR ---
PATIENT CONTINUE THERAPY FOR ADL PARTICIPATION, STRENGHT AND ENDURANCE WITH GOOD EFFECT. CONTINUE ASPIRATION PRECAUTION MAINTAINED. CONTINUE BREATHING TREATMENT FOR COPD. NO COMPLAINT VOICED DURING ROUNDS. NOT IN DISTRESS. WILL CONTINUE MONITOR
[2019-02-23 15:52] VITALS: BP 102/50
[2019-02-23 19:41] VITALS: BP 122/67
[2019-02-23] MEDS: MONTELUKAST SODIUM 10 MG TABLET PO SCH (20:08)
[2019-02-23] MEDS: DOCUSATE SODIUM 100 MG CAPSULE PO SCH (20:08)
[2019-02-23] MEDS: QUETIAPINE FUMARATE 25 MG TABLET PO SCH (20:09)
[2019-02-24] MEDS: IPRATROPIUM BROMIDE 0.5 MG/2.5 ML NEBU NEB SCH ×4 (00:37→18:44)
[2019-02-24] MEDS: ALBUTEROL SULFATE 1.25 MG/3 ML NEBU NEB SCH ×4 (00:38→18:44)
[2019-02-24 04:58] VITALS: BP 141/63
[2019-02-24] MEDS: SUCRALFATE 1 G TABLET PO SCH ×3 (06:30→16:57)
[2019-02-24] MEDS: VENLAFAXINE XR 75 MG TAB.ER.24H PO SCH (08:24)
[2019-02-24] MEDS: predniSONE 10 MG TABLET PO SCH (08:25)
[2019-02-24] MEDS: CALCIUM CARB/VITAMIN D 500MG-200UNITS TABLET PO SCH ×2 (08:25→16:51)
[2019-02-24] MEDS: MECLIZINE HCL 25 MG TABLET PO SCH ×3 (08:25→16:51)
[2019-02-24] MEDS: CLOPIDOGREL 75 MG TABLET PO SCH (08:25)
[2019-02-24] MEDS: AMLODIPINE 10 MG TABLET PO SCH (08:26)
[2019-02-24] MEDS: PANTOPRAZOLE SODIUM 40 MG TABLET.DR PO SCH ×2 (08:26→16:58)
[2019-02-24] MEDS: ATORVASTATIN 10 MG TABLET PO SCH (08:26)
[2019-02-24] MEDS: hydrALAZINE HCL 50 MG TABLET PO SCH ×3 (08:26→16:51)
[2019-02-24] MEDS: FLUTICASONE/VILANTEROL 1 EACH BLST.W.DEV IH SCH (08:27)
[2019-02-24] MEDS: CICLOPIROX 0.77% CREAM 30 GM TUBE TP SCH ×2 (08:27→16:58)
[2019-02-24 08:58] VITALS: BP 144/54
[2019-02-24 15:40] VITALS: BP 116/61
--- NOTE | 2019-02-24 17:43 | NUR ---
PATIENT CONTINUE BREATHING TREATMENT. TOLERATED WELL. NOT IN DISTRESS. CONTINUE THERAPY FOR ADL ACTIVITIES. WILL CONTINUE MONITOR
--- NOTE | 2019-02-24 19:35 | NUR ---
Awake, denies any pain at this time. EMERGENCY ROOM CLERK at bedside checking VS. Safety measure and fall precaution maintained. Continue care as planned
[2019-02-24 20:54] VITALS: BP 119/51
[2019-02-24] MEDS: DOCUSATE SODIUM 100 MG CAPSULE PO SCH (21:05)
[2019-02-24] MEDS: MONTELUKAST SODIUM 10 MG TABLET PO SCH (21:06)
[2019-02-24] MEDS: QUETIAPINE FUMARATE 25 MG TABLET PO SCH (21:06)
[2019-02-25] MEDS: ALBUTEROL SULFATE 1.25 MG/3 ML NEBU NEB SCH ×4 (01:30→19:18)
[2019-02-25] MEDS: IPRATROPIUM BROMIDE 0.5 MG/2.5 ML NEBU NEB SCH ×4 (01:30→19:16)
[2019-02-25 05:46] VITALS: BP 146/68
[2019-02-25] MEDS: SUCRALFATE 1 G TABLET PO SCH ×3 (06:24→17:18)
--- NOTE | 2019-02-25 07:34 | NUR ---
Patient noted resting in bed with eyes closed, no facial cues of pain at this time, no signs of distress noted, call light in reach, bed locked locked and in lowest position, all needs met
[2019-02-25] MEDS: VENLAFAXINE XR 75 MG TAB.ER.24H PO SCH (08:40)
[2019-02-25] MEDS: PANTOPRAZOLE SODIUM 40 MG TABLET.DR PO SCH ×2 (08:40→17:18)
[2019-02-25] MEDS: MECLIZINE HCL 25 MG TABLET PO SCH ×3 (08:40→17:18)
[2019-02-25] MEDS: CLOPIDOGREL 75 MG TABLET PO SCH (08:40)
[2019-02-25] MEDS: FLUTICASONE/VILANTEROL 1 EACH BLST.W.DEV IH SCH (08:40)
[2019-02-25] MEDS: CALCIUM CARB/VITAMIN D 500MG-200UNITS TABLET PO SCH ×2 (08:40→17:18)
[2019-02-25] MEDS: ATORVASTATIN 10 MG TABLET PO SCH (08:40)
[2019-02-25] MEDS: hydrALAZINE HCL 50 MG TABLET PO SCH ×3 (08:41→17:18)
[2019-02-25] MEDS: AMLODIPINE 10 MG TABLET PO SCH (08:41)
[2019-02-25] MEDS: CICLOPIROX 0.77% CREAM 30 GM TUBE TP SCH ×2 (08:46→17:19)
[2019-02-25] MEDS: predniSONE 10 MG TABLET PO SCH (08:46)
[2019-02-25 08:49] VITALS: BP 134/48
[2019-02-25 17:09] VITALS: BP 141/66
[2019-02-25 20:20] VITALS: BP 104/65
[2019-02-25] MEDS: MONTELUKAST SODIUM 10 MG TABLET PO SCH (20:22)
[2019-02-25] MEDS: DOCUSATE SODIUM 100 MG CAPSULE PO SCH (20:23)
[2019-02-25] MEDS: QUETIAPINE FUMARATE 25 MG TABLET PO SCH (20:25)
--- NOTE | 2019-02-25 21:04 | NUR ---
OOB in wheelchair @ beginning of shift. aaox3-4 needs attended. continent of bowel and bladder. voiding without difficulty. VSS. Assisted back in bed with supervision. PM care done. Tolerated po meds well. Will monitor patient. Compliant with care. No complaints presented during shift. Respiratory treatments given by respiratory therapist. No respiratory distress noted. pulse ox 95% RA.
[2019-02-26] MEDS: IPRATROPIUM BROMIDE 0.5 MG/2.5 ML NEBU NEB SCH ×4 (01:30→19:19)
[2019-02-26] MEDS: ALBUTEROL SULFATE 1.25 MG/3 ML NEBU NEB SCH ×4 (01:30→19:20)
[2019-02-26 05:00] VITALS: BP 146/85
[2019-02-26] MEDS: SUCRALFATE 1 G TABLET PO SCH ×3 (06:33→17:27)
--- NOTE | 2019-02-26 06:55 | NUR ---
quiet night. aaox3-4 needs attended. VSS kept comfortable. no acute distress noted. will monitor patient. fall precautions maintained.
[2019-02-26 09:30] VITALS: BP 133/55
[2019-02-26] MEDS: predniSONE 10 MG TABLET PO SCH (09:32)
[2019-02-26] MEDS: MECLIZINE HCL 25 MG TABLET PO SCH ×3 (09:33→17:27)
[2019-02-26] MEDS: CALCIUM CARB/VITAMIN D 500MG-200UNITS TABLET PO SCH ×2 (09:33→17:27)
[2019-02-26] MEDS: ATORVASTATIN 10 MG TABLET PO SCH (09:33)
[2019-02-26] MEDS: AMLODIPINE 10 MG TABLET PO SCH (09:34)
[2019-02-26] MEDS: CLOPIDOGREL 75 MG TABLET PO SCH (09:34)
[2019-02-26] MEDS: PANTOPRAZOLE SODIUM 40 MG TABLET.DR PO SCH ×2 (09:34→17:26)
[2019-02-26] MEDS: VENLAFAXINE XR 75 MG TAB.ER.24H PO SCH (09:35)
[2019-02-26] MEDS: hydrALAZINE HCL 50 MG TABLET PO SCH ×3 (09:35→17:27)
[2019-02-26] MEDS: FLUTICASONE/VILANTEROL 1 EACH BLST.W.DEV IH SCH (09:36)
[2019-02-26] MEDS: CICLOPIROX 0.77% CREAM 30 GM TUBE TP SCH ×2 (09:37→17:27)
[2019-02-26 16:26] VITALS: BP 120/61
[2019-02-26] MEDS: DOCUSATE SODIUM 100 MG CAPSULE PO SCH (20:30)
[2019-02-26] MEDS: QUETIAPINE FUMARATE 25 MG TABLET PO SCH (20:31)
[2019-02-26] MEDS: MONTELUKAST SODIUM 10 MG TABLET PO SCH (20:35)
[2019-02-26 20:40] VITALS: BP 140/56
--- NOTE | 2019-02-26 21:44 | NUR ---
resting in bed upon initial rounds. AAOx3-4 In good spirits. watching TV. Compliant with care. Tolerated po meds well. OOB to the BR with walker with standby assist. Voiding without difficulty. Bedtime care done. No acute distress noted.
[2019-02-27] MEDS: IPRATROPIUM BROMIDE 0.5 MG/2.5 ML NEBU NEB SCH ×4 (01:19→18:37)
[2019-02-27] MEDS: ALBUTEROL SULFATE 1.25 MG/3 ML NEBU NEB SCH ×4 (01:19→18:37)
[2019-02-27 04:20] VITALS: BP 128/63
[2019-02-27] MEDS: SUCRALFATE 1 G TABLET PO SCH ×3 (06:36→17:06)
[2019-02-27 08:05] VITALS: BP 97/52
[2019-02-27] MEDS: CALCIUM CARB/VITAMIN D 500MG-200UNITS TABLET PO SCH ×2 (08:56→17:05)
[2019-02-27] MEDS: PANTOPRAZOLE SODIUM 40 MG TABLET.DR PO SCH ×2 (08:57→17:05)
[2019-02-27] MEDS: ATORVASTATIN 10 MG TABLET PO SCH (08:57)
[2019-02-27] MEDS: CLOPIDOGREL 75 MG TABLET PO SCH (08:57)
[2019-02-27] MEDS: predniSONE 10 MG TABLET PO SCH (08:58)
[2019-02-27] MEDS: VENLAFAXINE XR 75 MG TAB.ER.24H PO SCH (08:58)
[2019-02-27] MEDS: FLUTICASONE/VILANTEROL 1 EACH BLST.W.DEV IH SCH (08:58)
[2019-02-27] MEDS: MECLIZINE HCL 25 MG TABLET PO SCH ×3 (08:58→17:05)
[2019-02-27] MEDS: ERGOCALCIFEROL 50,000 UNIT CAPSULE PO SCH (08:59)
[2019-02-27] MEDS: hydrALAZINE HCL 50 MG TABLET PO SCH ×3 (09:00→17:05)
[2019-02-27] MEDS: CICLOPIROX 0.77% CREAM 30 GM TUBE TP SCH ×2 (09:14→17:04)
[2019-02-27] MEDS: AMLODIPINE 10 MG TABLET PO SCH (14:42)
[2019-02-27 16:42] VITALS: BP 137/73
--- NOTE | 2019-02-27 19:40 | NUR ---
Received patient in bed. AAO x3. Not in acute distress or SOB. On room air. Able to make needs known. Icelandic speaking. No complain of pain at this time. Physical assessment done. Fall prevention observed. Safety measures maintained. Bed in low and lock position, alarm on, side rails up x2 for safety. Call light and frequently used items within reach. Continue to monitor.
[2019-02-27 20:00] VITALS: BP 124/64
[2019-02-27] MEDS: DOCUSATE SODIUM 100 MG CAPSULE PO SCH (20:08)
[2019-02-27] MEDS: MONTELUKAST SODIUM 10 MG TABLET PO SCH (20:09)
[2019-02-27] MEDS: QUETIAPINE FUMARATE 25 MG TABLET PO SCH (20:09)
[2019-02-28] MEDS: IPRATROPIUM BROMIDE 0.5 MG/2.5 ML NEBU NEB SCH ×4 (00:47→19:44)
[2019-02-28] MEDS: ALBUTEROL SULFATE 2.5 MG/3 ML NEBU NEB SCH ×4 (00:47→19:44)
[2019-02-28] MEDS: SUCRALFATE 1 G TABLET PO SCH ×3 (06:31→16:39)
[2019-02-28 07:46] VITALS: BP 141/62
[2019-02-28] MEDS ORDERED: predniSONE 10 MG TABLET PO SCH (08:00)
[2019-02-28] MEDS: FLUTICASONE/VILANTEROL 1 EACH BLST.W.DEV IH SCH (08:38)
[2019-02-28] MEDS: ATORVASTATIN 10 MG TABLET PO SCH (08:40)
[2019-02-28] MEDS: hydrALAZINE HCL 50 MG TABLET PO SCH ×3 (08:40→16:40)
[2019-02-28] MEDS: CLOPIDOGREL 75 MG TABLET PO SCH (08:40)
[2019-02-28] MEDS: VENLAFAXINE XR 75 MG TAB.ER.24H PO SCH (08:41)
[2019-02-28] MEDS: CALCIUM CARB/VITAMIN D 500MG-200UNITS TABLET PO SCH ×2 (08:41→16:42)
[2019-02-28] MEDS: AMLODIPINE 10 MG TABLET PO SCH (08:41)
[2019-02-28] MEDS: MECLIZINE HCL 25 MG TABLET PO SCH ×3 (08:42→16:38)
[2019-02-28] MEDS: predniSONE 5 MG TABLET PO SCH (08:42)
[2019-02-28] MEDS: CICLOPIROX 0.77% CREAM 30 GM TUBE TP SCH ×2 (08:45→16:42)
[2019-02-28 16:06] VITALS: BP 128/62
--- NOTE | 2019-02-28 16:19 | NUR ---
Pt received this morning. Pt assessed, no acute distress, pain, or SOB, wheezing on exertion noted. Pt AAOx4, icelandic speaking, but able to make needs known in Slovak. VSS. Pt compliant with medication administration and therapies as offered. Pt assisted to bathroom for BMx1, with walker, steady gait and back to bed. Side rails up x2, bed alarm on. Breathing Tx as scheduled. All comfort and safety needs attended to. Call light placed within reach. Will continue to monitor.
[2019-02-28] MEDS: PANTOPRAZOLE SODIUM 40 MG TABLET.DR PO SCH (16:41)
--- NOTE | 2019-02-28 19:30 | NUR ---
Received pt up in wheelchair. In no acute distress at this time. No c/o pain.
[2019-02-28 19:50] VITALS: BP 122/55
[2019-02-28] MEDS: MONTELUKAST SODIUM 10 MG TABLET PO SCH (20:20)
[2019-02-28] MEDS: QUETIAPINE FUMARATE 25 MG TABLET PO SCH (20:20)
[2019-02-28] MEDS: DOCUSATE SODIUM 100 MG CAPSULE PO SCH (20:20)
[2019-03-01] MEDS: IPRATROPIUM BROMIDE 0.5 MG/2.5 ML NEBU NEB SCH ×3 (00:50→14:06)
[2019-03-01] MEDS: ALBUTEROL SULFATE 2.5 MG/3 ML NEBU NEB SCH ×3 (00:50→14:06)
[2019-03-01 04:00] VITALS: BP 136/59
[2019-03-01] MEDS: PANTOPRAZOLE SODIUM 40 MG TABLET.DR PO SCH (06:05)
--- NOTE | 2019-03-01 06:30 | NUR ---
Pt slept well last night, no PRNs given.
[2019-03-01] MEDS: SUCRALFATE 1 G TABLET PO SCH ×2 (06:42→12:05)
[2019-03-01 08:00] VITALS: BP 148/65
[2019-03-01] MEDS: predniSONE 5 MG TABLET PO SCH (08:22)
[2019-03-01] MEDS: CLOPIDOGREL 75 MG TABLET PO SCH (08:22)
[2019-03-01] MEDS: ATORVASTATIN 10 MG TABLET PO SCH (08:22)
[2019-03-01] MEDS: FLUTICASONE/VILANTEROL 1 EACH BLST.W.DEV IH SCH (08:22)
[2019-03-01] MEDS: MECLIZINE HCL 25 MG TABLET PO SCH ×2 (08:23→12:05)
[2019-03-01] MEDS: VENLAFAXINE XR 75 MG TAB.ER.24H PO SCH (08:23)
[2019-03-01] MEDS: CALCIUM CARB/VITAMIN D 500MG-200UNITS TABLET PO SCH (08:23)
[2019-03-01] MEDS: AMLODIPINE 10 MG TABLET PO SCH (08:24)
[2019-03-01] MEDS: hydrALAZINE HCL 50 MG TABLET PO SCH ×2 (08:25→12:05)
[2019-03-01] MEDS: CICLOPIROX 0.77% CREAM 30 GM TUBE TP SCH (08:27)
[2019-03-01 12:05] VITALS: BP 136/68
--- NOTE | 2019-03-01 14:46 | NUR ---
Pt received this morning, no acute distress, able to make needs known. Pt compliant with medications and therapies as offered. Pt assisted to shower and returned to bed. Discharge order received, paperwork completed. TMS signed, Rx reviewed with patient and daughter. Rx faxed to pharmacy, confirmed. Skin integrity intact no wound photos necessary. No home medications to return. All belongings accounted for and list signed. manager sales support, Mukesh assisted with answering all of Patient and family's discharge concerns. Follow up appointment teaching provided. Pt safely escorted in wheelchair to private vehicle with daughter, Anne moon. Will remove Pt from system shortly.
== END 2019-03-01 14:50 | disposition home health service (06) | DRG 190 ==
PROVIDERS: ADMIT Physical Medicine & Rehabilitation Pain Medicine; ATTEND Physical Medicine & Rehabilitation Pain Medicine
DX: J44.1 Chronic obstructive pulmonary disease with (acute) exacerbation (principal); I50.33 Acute on chronic diastolic (congestive) heart failure; J18.9 Pneumonia, unspecified organism; I13.0 Hypertensive heart and chronic kidney disease with heart failure and stage 1 through stage 4 chronic kidney disease, or unspecified chronic kidney disease; E27.3 Drug-induced adrenocortical insufficiency; E87.1 Hypo-osmolality and hyponatremia; E78.5 Hyperlipidemia, unspecified; F39 Unspecified mood [affective] disorder; I25.10 Atherosclerotic heart disease of native coronary artery without angina pectoris; J20.9 Acute bronchitis, unspecified; J44.0 Chronic obstructive pulmonary disease with (acute) lower respiratory infection; K22.70 Barrett's esophagus without dysplasia; N18.2 Chronic kidney disease, stage 2 (mild); E66.9 Obesity, unspecified; M19.90 Unspecified osteoarthritis, unspecified site; E11.22 Type 2 diabetes mellitus with diabetic chronic kidney disease; K22.8 Other specified diseases of esophagus; K44.9 Diaphragmatic hernia without obstruction or gangrene; Z88.0 Allergy status to penicillin; K21.9 Gastro-esophageal reflux disease without esophagitis
CPT/HCPCS: 36415; 70030-TC; 71045; 83735; 84100; 85025; 94640; 94664; J1956; J2920; J3590; J7512; J8597

== ENCOUNTER 2019-02-12 20:42 | Inpatient (IN) | payer MEDICARE, OTHER ==
[~2019-02-12] VITALS: Ht 144.8 cm; Wt 59.2 kg
[~2019-02-12 20:42] MED LIST changes: +AMLO10TA7 PO; -AZIT500T PO; +BUDESONIDE; -FLUT16SP NS; -FLUT1BLS IH; +FLUT1DIS28 INH; +HYDR-4077 PO; +IPRA3AMP22 IH; +IPRA4AER IH; -LOPE2TAB57 PO; -MECL-102 PO; +MECL-159 PO; -METO25TA6 PO; -NITR0.4T48 SL; +ONDA4TAB11 PO; -OXYB5TAB16 PO; +PRED20TA PO; -QUET25TA PO
--- NOTE | 2019-02-12 20:55 | NUR ---
Dr. Nieto at bedside for MSE
[2019-02-12] MEDS ORDERED: IPRATROPIUM BROMIDE 0.5 MG/2.5 ML NEBU NEB ONE (21:00)
[2019-02-12] MEDS ORDERED: ALBUTEROL SULFATE 2.5 MG/3 ML NEBU NEB ONE (21:00)
[2019-02-12] MEDS ORDERED: LEVOFLOXACIN 750 MG/D5W 150 ML PIGGYBACK IV ONE (21:00)
[2019-02-12] MEDS ORDERED: methylPREDNISolone SOD SUCC 125 MG/2 ML VIAL IV ONE (21:00)
[2019-02-12] MEDS ORDERED: ALBUTEROL SULFATE 2.5 MG/ 0.5 ML NEBU ONE (21:04)
[2019-02-12] MEDS ORDERED: IPRATROPIUM BROMIDE 0.5 MG/2.5 ML NEBU ONE (21:05)
[2019-02-12 21:18] LABS: BASOPHILS # (AUTO) 0.1 K/uL (0.0-8.0); BASOPHILS % (AUTO) 0.5 % (0.0-2.0); EOSINOPHILS % (AUTO) 0.2 % (0.0-7.0); HEMATOCRIT 34.7 % (31.2-41.9); HEMOGLOBIN 11.3 g/dL (10.9-14.3); LYMPHOCYTES % (AUTO) 8.7 % (20.5-51.5); MEAN CORPUSCULAR HEMOGLOBIN 26.9 uug (24.7-32.8); MEAN CORPUSCULAR HGB CONC 33 g/dL (32.3-35.6); MEAN CORPUSCULAR VOLUME 82.6 fL (75.5-95.3); MONOCYTES # (AUTO) 0.6 K/uL (2.0-10.0); MONOCYTES % (AUTO) 5.9 % (0.0-11.0); NEUTROPHILS # (AUTO) 9.3 K/uL (1.8-8.9); NEUTROPHILS % (AUTO) 84.7 % (38.5-71.5); PLATELET COUNT (AUTO) 382 K/uL (179-408); RED BLOOD CELL COUNT(AUTO) 4.19 MIL/uL (3.63-4.92)
[2019-02-12 21:22] LABS: CREATININE 1.2 mg/dL (0.6-1.3); POTASSIUM 3.9 mmol/L (3.5-5.1)
[2019-02-12 21:35] LABS: BILIRUBIN,DIRECT 0.1 mg/dL (0.0-0.2); BILIRUBIN,TOTAL 0.2 mg/dL (0.2-1.0); TOTAL PROTEIN, SERUM 7.2 g/dL (6.4-8.2)
[2019-02-12] MEDS ORDERED: methylPREDNISolone SOD SUCC 125 MG/2 ML VIAL ONE (21:36)
[2019-02-12] MEDS ORDERED: LEVOFLOXACIN 750MG/D5W 150 ML IV ONE (21:37)
[2019-02-12 21:49] LABS: MAGNESIUM 1.6 mg/dL (1.8-2.4); PHOSPHOROUS 3.4 mg/dL (2.5-4.9)
[2019-02-12 22:00] LABS: THYROID STIMULATING HORMONE 4.095 mIU/mL (0.358-3.740)
[2019-02-12] MEDS ORDERED: VANCOMYCIN IV 1,000 MG in IV DEXTROSE 5% 250 ML IV ONE (22:00)
[2019-02-12] MEDS ORDERED: FUROSEMIDE 20 MG/2 ML VIAL IV ONE (22:00)
[2019-02-12] MEDS ORDERED: ENOXAPARIN SODIUM 30 MG/0.3 ML DISP.SYRIN SUBCUT ONE (22:00)
[2019-02-12] MEDS ORDERED: ASPIRIN 325 MG TABLET PO ONE (22:00)
[2019-02-12] MEDS ORDERED: CEFEPIME HCL 2 G in IV DEXTROSE 5% 100 ML IV ONE (22:00)
[2019-02-12] MEDS ORDERED: CLOPIDOGREL 75 MG TABLET PO ONE (22:00)
[2019-02-12] MEDS ORDERED: ENOXAPARIN SODIUM 60 MG/0.6 ML DISP.SYRIN SQ ONE (22:08)
[2019-02-12] MEDS ORDERED: ASPIRIN 325 MG TABLET ONE (22:08)
[2019-02-12] MEDS ORDERED: CEFEPIME HCL 1 G VIAL ONE (22:09)
[2019-02-12] MEDS ORDERED: CLOPIDOGREL 75 MG TABLET ONE (22:09)
[2019-02-12] MEDS ORDERED: VANCOMYCIN IV 200 ML ONE (22:09)
--- NOTE | 2019-02-12 22:13 | NUR ---
Dr. Nieto speaking with Dr. Olson of [facility].
[2019-02-12] MEDS ORDERED: FUROSEMIDE 20 MG/2 ML VIAL ONE (22:21)
[2019-02-12] MEDS ORDERED: MAGNESIUM SULFATE/D5W 100 ML IV SCH (23:00)
[2019-02-12] MEDS ORDERED: FUROSEMIDE 40 MG/4 ML VIAL IV ONE (23:30)
[2019-02-12 23:43] LABS: *BILIRUBIN,URIN NEGATIVE (NEGATIVE); *BLOOD, URINE NEGATIVE (NEGATIVE); *CLARITY,URINE CLEAR (CLEAR); *COLOR,URINE YELLOW (YELLOW); *KETONES,URINE NEGATIVE (NEGATIVE); *UROBILINOGEN,URINE 0.2 E.U./dl (NORMAL); LEUKOCYTE ESTERASE ,URINE TRACE (NEGATIVE); NITRITE, URINE NEGATIVE (NEGATIVE); PH,URINE 5.5 (5.0-8.0); UGLUCOSE NEGATIVE (NEGATIVE)
[2019-02-12] MEDS ORDERED: FUROSEMIDE 40 MG/4 ML VIAL ONE (23:49)
[2019-02-12 23:50] LABS: RBC,URINE 0-3 /HPF (0-3)
[2019-02-12] MEDS ORDERED: MAGNESIUM SULFATE/D5W 100 ML ONE (23:50)
[2019-02-12 23:51] LABS: BACTERIA,URINE FEW /HPF (NONE SEEN); SQUAMOUS EPITHELIAL CELL,UR FEW /HPF (NONE SEEN)
--- NOTE | 2019-02-13 00:15 | NUR ---
Maxepime 2g IV done infusing at 0015
--- NOTE | 2019-02-13 00:39 | NUR ---
Vancomycin 1g IV and Magnesium Sulfate IV to infuse in Telemetry. Iker CONNER aware
--- NOTE | 2019-02-13 00:39 | NUR ---
Pt. admitted to Telemetry , under care of Dr. Olson Belongs List completed
[2019-02-13 01:10] LABS: ABG BASE EXCESS 1.9 mmol/L; ABG HCO3 26.2 mmol/L; ABG PCO2 39.4 mmHg (35.0-45.0); ABG PO2 69.3 mmHg (75.0-100.0); ABG SITE RIGHT RADIAL; ABG TOTAL HEMOGLOBIN 11.2 G/dL (12.0-16.0); MetHb 0.3 % (0.0-1.5); O2Hb 92.4 % (94.0-97.0); VENT MODE ROOM AIR
[2019-02-13 01:15] VITALS: BP 138/62
[2019-02-13] MEDS: QUETIAPINE FUMARATE 25 MG TABLET PO SCH ×2 (03:08→20:37)
[2019-02-13] MEDS ORDERED: HOME MED MISCELLANEOUS XX SCH ×3 (06:30)
[2019-02-13] MEDS ORDERED: ONDANSETRON ODT 4 MG TAB.RAPDIS SL PRN (06:30)
[2019-02-13 06:49] LABS: BASOPHILS % (AUTO) 0.1 % (0.0-2.0); NEUTROPHILS # (AUTO) 4.6 K/uL (1.8-8.9)
[2019-02-13 06:52] LABS: CREATININE 1.2 mg/dL (0.6-1.3)
[2019-02-13] MEDS: PANTOPRAZOLE SODIUM 40 MG TABLET.DR PO SCH ×3 (07:00→16:37)
[2019-02-13 07:25] LABS: HEMOGLOBIN 10.3 g/dL (10.9-14.3); LYMPHOCYTES # (AUTO) 0.4 K/uL (20.0-40.0); LYMPHOCYTES % (AUTO) 7.9 % (20.5-51.5); MEAN CORPUSCULAR HEMOGLOBIN 27.2 uug (24.7-32.8); MEAN CORPUSCULAR HGB CONC 33 g/dL (32.3-35.6); MEAN CORPUSCULAR VOLUME 82.1 fL (75.5-95.3); MONOCYTES % (AUTO) 0.9 % (0.0-11.0); NEUTROPHILS % (AUTO) 91.1 % (38.5-71.5); PLATELET COUNT (AUTO) 321 K/uL (179-408); RED BLOOD CELL COUNT(AUTO) 3.78 MIL/uL (3.63-4.92)
--- NOTE | 2019-02-13 07:30 | NUR ---
pT ADMITTED TO ROOM 325; ASSISTED WITH NEEDS; VSS; VANCO AND MAG ADMINISTERED; NEW IV TO LEFT FOREARM; PLAN OF CARE INITIATED;
[2019-02-13] MEDS ORDERED: IPRATROPIUM BROMIDE 0.5 MG/2.5 ML NEBU NEB SCH (07:35)
[2019-02-13] MEDS ORDERED: ALBUTEROL SULFATE 1.25 MG/3 ML NEBU NEB SCH (07:35)
--- NOTE | 2019-02-13 07:40 | NUR ---
AWAKE ALERT AND AWARE WITH LANGUAGE BARRIER BUT MAKES NEEDS KNOWN ON O2 WITH NO SOB AT THIS TIME CALL LIGHTS AND PERSONAL BELONGINGS ARE WITHIN EASY REACH AT THIS TIME NO S/S OF ADVERSE OR ALLERGIC REACTIONS RELATED TO ATB ORDERED WILL CONTINUE TO OBSERVE.
[2019-02-13 08:10] LABS: POTASSIUM 2.8 mmol/L (3.5-5.1)
--- NOTE | 2019-02-13 08:11 | NUR ---
CALL RECEIVED FROM THE LAB POTASSIUM LEVEL IS 2.8 CALLED THE NEPHROLOGY GROUP AND NOTIFIED DR AVALOS WITH NO NEW ORDERS STATED WILL BE HERE SOON AND WILL SEE PATIENT.
[2019-02-13] MEDS: ALBUTEROL SULFATE 2.5 MG/3 ML NEBU NEB SCH ×3 (08:17→19:26)
[2019-02-13] MEDS: IPRATROPIUM BROMIDE 0.5 MG/2.5 ML NEBU NEB SCH ×3 (08:17→19:26)
[2019-02-13] MEDS: FLUTICASONE/VILANTEROL 1 EACH BLST.W.DEV INH SCH (08:54)
[2019-02-13] MEDS: CALCIUM CARB/VITAMIN D 500MG-200UNITS TABLET PO SCH ×2 (08:55→16:37)
[2019-02-13] MEDS: VENLAFAXINE XR 75 MG CAP.SR.24H PO SCH (08:55)
[2019-02-13] MEDS: SUCRALFATE 1 G TABLET PO SCH ×3 (08:55→16:37)
[2019-02-13] MEDS: CLOPIDOGREL 75 MG TABLET PO SCH (08:55)
[2019-02-13] MEDS: MECLIZINE HCL 25 MG TABLET PO SCH ×3 (08:56→16:37)
[2019-02-13] MEDS: hydrALAZINE HCL 50 MG TABLET PO SCH ×3 (08:56→16:42)
[2019-02-13] MEDS: AMLODIPINE 10 MG TABLET PO SCH (08:56)
[2019-02-13] MEDS ORDERED: FLUTICASONE/SALMETEROL 250/50 INHALER INH SCH (09:00)
[2019-02-13] MEDS ORDERED: LEVOFLOXACIN 500 MG/D5W 500 MG in PREMIXED 1 EACH IV SCH (09:00)
[2019-02-13] MEDS ORDERED: ERGOCALCIFEROL 50,000 UNIT CAPSULE PO SCH (09:00)
[2019-02-13] MEDS: ATORVASTATIN 10 MG TABLET PO SCH (09:02)
[2019-02-13] MEDS: CICLOPIROX 0.77% CREAM 30 GM TUBE TP SCH ×2 (10:24→16:36)
[2019-02-13 11:32] VITALS: BP 113/55
[2019-02-13] MEDS ORDERED: POTASSIUM CHLORIDE 10 MEQ TAB.PRT.SR PO ONE (12:30)
--- NOTE | 2019-02-13 12:30 | NUR ---
DR AVALOS HERE TO SEE PATIENT WITH ORDERS TO REPLACE POTASSIUM AND NOTED.
[2019-02-13 16:00] VITALS: BP 124/55
--- NOTE | 2019-02-13 18:00 | NUR ---
RESTING IN BED WITH O2 AT 2L/M BY NASAL CANULA STILL HAS EXPIRATORY WHEEZES WITH HHN HELPFUL ORDERED MADE COMFORTABLE NOT IN DISTRESS AT THIS TIME WILL CONTINUE TO OBSERVE.
--- NOTE | 2019-02-13 20:00 | NUR ---
PATIENT ALERT BUT FORGETFUL NO SOB NO CHEST PAIN, PATIENT ON OXYGEN 2 LITERS PER MINUTE, NO DESATURATION NOTED, PATIENT ON HHN TX FOR COPD EXACERBATION, ASSIST WITH TOILETING, PATIENT TELE MONITOR SINUS RHYTHM, SINUS TACHY AT TIMES, CALL LIGHT WITHIN REACH. CONT TO MONITOR.
[2019-02-13 20:33] VITALS: BP 103/41
[2019-02-13] MEDS: DOCUSATE SODIUM 100 MG CAPSULE PO SCH (20:36)
[2019-02-13] MEDS: MONTELUKAST SODIUM 10 MG TABLET PO SCH (20:37)
[2019-02-13] MEDS ORDERED: LEVOFLOXACIN 500 MG/D5W 500 MG in PREMIXED 1 EACH IV ONE (21:00)
[2019-02-13] MEDS ORDERED: QUETIAPINE FUMARATE 25 MG TABLET PO SCH (21:00)
[2019-02-13] MEDS: methylPREDNISolone SOD SUCC 40 MG/ML VIAL IV SCH (21:53)
[2019-02-14] VITALS: BP 110/42
[2019-02-14 05:55] VITALS: BP 112/79
[2019-02-14] MEDS: PANTOPRAZOLE SODIUM 40 MG TABLET.DR PO SCH ×2 (06:02→16:32)
[2019-02-14] MEDS: SUCRALFATE 1 G TABLET PO SCH ×3 (06:02→16:33)
--- NOTE | 2019-02-14 06:20 | NUR ---
PATIENT ALERT BUT FORGETFUL, NO SOB NO CHEST PAIN, TELE MONITOR SINUS RHYTHM WITH PVC AT THIS TIME. PATIENT ON CONTINUOUS OXYGEN 2 LPM NC, NO DESATURATION NOTED, NO SOB NOTED, CHIEF BUILDING INSPECTOR ASSIST WITH TOILETING, CALL LIGHT WITHIN REACH.
[2019-02-14] MEDS: IPRATROPIUM BROMIDE 0.5 MG/2.5 ML NEBU NEB SCH ×3 (07:29→19:56)
[2019-02-14] MEDS: ALBUTEROL SULFATE 2.5 MG/3 ML NEBU NEB SCH ×3 (07:29→19:56)
--- NOTE | 2019-02-14 08:00 | NUR ---
IN BED AWAKE ALERT WITH LANGUAGE BARRIER ASSINED SUPPLY AND DISTRIBUTION MANAGER FLUENT IN SOUTH KOREAN AND ABLE TO ASSIST PATIENT SHE DESIRES BUT SHE IS ALSO ABLE TO MAKE SIMPLE NEEDS KNOWN REMAIN ON O2 WITH OCCASSIONAL EXPIRATORY WHEEZES CONTINUE WITH HHN ORDERED AND HELPFUL.TELE REMAINS WITH ST PATIENT INSTRUCTED THAT SHE NEEDS TO PROVIDE SPUTUM SPECIMEN AND SHE EXPRESSED UNDERSTANDING.
[2019-02-14] MEDS: FLUTICASONE/VILANTEROL 1 EACH BLST.W.DEV INH SCH (08:41)
[2019-02-14] MEDS: methylPREDNISolone SOD SUCC 40 MG/ML VIAL IV SCH ×2 (08:42→21:09)
[2019-02-14] MEDS: CLOPIDOGREL 75 MG TABLET PO SCH (08:42)
[2019-02-14] MEDS: ATORVASTATIN 10 MG TABLET PO SCH (08:42)
[2019-02-14] MEDS: VENLAFAXINE XR 75 MG CAP.SR.24H PO SCH (08:42)
[2019-02-14] MEDS: MECLIZINE HCL 25 MG TABLET PO SCH ×3 (08:42→16:33)
[2019-02-14] MEDS: CALCIUM CARB/VITAMIN D 500MG-200UNITS TABLET PO SCH ×2 (08:42→16:33)
[2019-02-14] MEDS: AMLODIPINE 10 MG TABLET PO SCH (08:43)
[2019-02-14] MEDS: hydrALAZINE HCL 50 MG TABLET PO SCH ×3 (08:43→16:34)
[2019-02-14] MEDS: CICLOPIROX 0.77% CREAM 30 GM TUBE TP SCH ×2 (09:04→16:34)
[2019-02-14 11:28] VITALS: BP 116/51
--- NOTE | 2019-02-14 12:36 | NUR ---
DR KOHLER HERE TO SEE PATIENT AWARE THAT PATIENT STILL HAS BEEN UNABLE TO PRODUCE SPUTUM ORDERED STATED OKAY TO SEND WHEN EVER
--- NOTE | 2019-02-14 14:00 | NUR ---
PATIENT SEEN BY DR AVALOS WITH NEW ORDERS AND NOTED.
[2019-02-14 15:53] VITALS: BP 110/40
--- NOTE | 2019-02-14 18:00 | NUR ---
PATIENT IS RESTING REMAINS TACHY BUT STATED THAT SHE IS COMFORTABLE WILL OBSERVE AND PROVIDE SAFE AND THERAPEUTIC ENVIRONMENT.
--- NOTE | 2019-02-14 20:00 | NUR ---
AWAKE ALERT,SPEAKS BURMESE TELEMETRY SINUS RHYTHMCOUHING AT INTERVALS, RESTING COMFORTABLY.
[2019-02-14 20:30] VITALS: BP 108/53
[2019-02-14] MEDS: MONTELUKAST SODIUM 10 MG TABLET PO SCH (20:31)
[2019-02-14] MEDS: DOCUSATE SODIUM 100 MG CAPSULE PO SCH (20:32)
[2019-02-14] MEDS: QUETIAPINE FUMARATE 25 MG TABLET PO SCH (20:32)
[2019-02-14] MEDS: LEVOFLOXACIN 250MG /D5W 250 MG in PREMIXED 1 EACH IV SCH (21:16)
--- NOTE | 2019-02-14 21:37 | NUR ---
LEVAQUIN 250MG GIVEN HALF OF 500MG IVPB.NO COMPLAINTS MADE, RESTING COMFORTABLY
[2019-02-15] VITALS: BP 110/54
[2019-02-15 04:00] VITALS: BP 122/64
[2019-02-15] MEDS: PANTOPRAZOLE SODIUM 40 MG TABLET.DR PO SCH ×2 (06:31→17:14)
[2019-02-15 06:41] LABS: HEMATOCRIT 30.3 % (31.2-41.9); HEMOGLOBIN 10.1 g/dL (10.9-14.3); LYMPHOCYTES # (AUTO) 0.7 K/uL (20.0-40.0); LYMPHOCYTES % (AUTO) 11.2 % (20.5-51.5); MEAN CORPUSCULAR HEMOGLOBIN 26.6 uug (24.7-32.8); MEAN CORPUSCULAR HGB CONC 33 g/dL (32.3-35.6); MEAN CORPUSCULAR VOLUME 80.2 fL (75.5-95.3); MONOCYTES # (AUTO) 0.3 K/uL (2.0-10.0); MONOCYTES % (AUTO) 5.1 % (0.0-11.0); NEUTROPHILS % (AUTO) 83.7 % (38.5-71.5); PLATELET COUNT (AUTO) 362 K/uL (179-408); RED BLOOD CELL COUNT(AUTO) 3.78 MIL/uL (3.63-4.92)
[2019-02-15 06:52] LABS: CREATININE 1.2 mg/dL (0.6-1.3); MAGNESIUM 1.8 mg/dL (1.8-2.4); PHOSPHOROUS 3.5 mg/dL (2.5-4.9)
[2019-02-15] MEDS: ALBUTEROL SULFATE 2.5 MG/3 ML NEBU NEB SCH ×3 (07:38→21:30)
[2019-02-15] MEDS: IPRATROPIUM BROMIDE 0.5 MG/2.5 ML NEBU NEB SCH ×3 (07:38→21:30)
[2019-02-15] MEDS: CALCIUM CARB/VITAMIN D 500MG-200UNITS TABLET PO SCH ×2 (08:33→17:14)
[2019-02-15] MEDS: ATORVASTATIN 10 MG TABLET PO SCH (08:33)
[2019-02-15] MEDS: AMLODIPINE 10 MG TABLET PO SCH (08:33)
[2019-02-15] MEDS: CLOPIDOGREL 75 MG TABLET PO SCH (08:33)
[2019-02-15] MEDS: methylPREDNISolone SOD SUCC 40 MG/ML VIAL IV SCH ×2 (08:34→20:09)
[2019-02-15] MEDS: SUCRALFATE 1 G TABLET PO SCH ×3 (08:34→17:14)
[2019-02-15] MEDS: MECLIZINE HCL 25 MG TABLET PO SCH ×3 (08:34→17:14)
[2019-02-15] MEDS: VENLAFAXINE XR 75 MG CAP.SR.24H PO SCH (08:34)
[2019-02-15] MEDS: hydrALAZINE HCL 50 MG TABLET PO SCH ×3 (08:34→17:15)
[2019-02-15] MEDS: CICLOPIROX 0.77% CREAM 30 GM TUBE TP SCH ×2 (08:35→17:14)
[2019-02-15] MEDS: FLUTICASONE/VILANTEROL 1 EACH BLST.W.DEV INH SCH (08:37)
--- NOTE | 2019-02-15 09:29 | NUR ---
received pt. resting in bed alert oriented x4 hungarian speaking. Pt/ has IV in L forearm saline lock. Pt. denies pain discomfort. pt. denies sob/ difficulty breathing. Pt. on 2 L NC. safety measures in place. call light within reach. will continue to monitor pt.
[2019-02-15 11:01] VITALS: BP 126/41
[2019-02-15 15:11] VITALS: BP 115/43
[2019-02-15 20:00] VITALS: BP 125/47
--- NOTE | 2019-02-15 20:00 | NUR ---
Received patient laying in bed. A/O x 3 Georgian speaking but able to make needs known in Belarusian. No acute distress noted. Denies pain and SOB. On O2 2L. TELE SR @ 84. IV on the left FA, patent and intact. penitentiary assessment done, noted edema on the bilateral lower extremities. Safety initiated. Call light within reach. Will continue to monitor.
[2019-02-15] MEDS: DOCUSATE SODIUM 100 MG CAPSULE PO SCH (20:09)
[2019-02-15] MEDS: QUETIAPINE FUMARATE 25 MG TABLET PO SCH (20:10)
[2019-02-15] MEDS: MONTELUKAST SODIUM 10 MG TABLET PO SCH (20:10)
[2019-02-15] MEDS: LEVOFLOXACIN 250MG /D5W 250 MG in PREMIXED 1 EACH IV SCH (20:10)
[2019-02-16 04:00] VITALS: BP 122/53
--- NOTE | 2019-02-16 05:51 | NUR ---
Patient slept t/o shift. Patient remains on O2 2L NC. TELE SR at 75. No acute distress noted. Good urine output. Safety and comfort measures maintained t/o shift. Vital signs stable. All meds given as ordered. All needs met.
[2019-02-16] MEDS: PANTOPRAZOLE SODIUM 40 MG TABLET.DR PO SCH ×2 (06:18→17:00)
[2019-02-16] MEDS: SUCRALFATE 1 G TABLET PO SCH ×3 (06:35→17:00)
--- NOTE | 2019-02-16 07:44 | NUR ---
Patient resting comfortably in bed at this time. SR on telemetry. O2 2L NC saturating WNL. Vitals stable. Safety measures implemented. Bed alarm on, call light within reach of patient. Will continue to monitor throughout shift.
[2019-02-16] MEDS: FLUTICASONE/VILANTEROL 1 EACH BLST.W.DEV INH SCH (08:11)
[2019-02-16] MEDS: methylPREDNISolone SOD SUCC 40 MG/ML VIAL IV SCH (08:12)
[2019-02-16] MEDS: AMLODIPINE 10 MG TABLET PO SCH (08:15)
[2019-02-16] MEDS: CLOPIDOGREL 75 MG TABLET PO SCH (08:15)
[2019-02-16] MEDS: MECLIZINE HCL 25 MG TABLET PO SCH ×3 (08:15→17:00)
[2019-02-16] MEDS: VENLAFAXINE XR 75 MG CAP.SR.24H PO SCH (08:15)
[2019-02-16] MEDS: hydrALAZINE HCL 50 MG TABLET PO SCH ×3 (08:15→17:00)
[2019-02-16] MEDS: CALCIUM CARB/VITAMIN D 500MG-200UNITS TABLET PO SCH ×2 (08:15→17:00)
[2019-02-16] MEDS: ATORVASTATIN 10 MG TABLET PO SCH (08:15)
[2019-02-16] MEDS: CICLOPIROX 0.77% CREAM 30 GM TUBE TP SCH ×2 (08:16→17:01)
[2019-02-16] MEDS: ALBUTEROL SULFATE 2.5 MG/3 ML NEBU NEB SCH ×2 (08:20→15:02)
[2019-02-16] MEDS: IPRATROPIUM BROMIDE 0.5 MG/2.5 ML NEBU NEB SCH ×2 (08:20→15:02)
[2019-02-16 08:26] VITALS: BP 146/52
[2019-02-16 11:12] VITALS: BP 143/59
[2019-02-16 15:20] VITALS: BP 110/42
[2019-02-16 17:00] VITALS: BP 110/46
--- NOTE | 2019-02-16 17:30 | NUR ---
PATIENT TRANSFERRED TO ARU AT THIS TIME IN STABLE CONDITION. DISCHARGE PAPERWORK COMPLETED AND GIVEN TO ARU NURSE, PALOMO. SAFETY MEASURES IMPLEMENTED. IV-ACCESS LEFT IN PLACE, INTACT, PATENT.
[2019-02-16] MEDS ORDERED: LEVO250P3 IV (19:57)
[2019-02-16] MEDS ORDERED: FLUT1BLS IH (19:57)
[2019-02-16] MEDS ORDERED: SUCR1ORA4 PO (20:04)
[2019-02-16] MEDS ORDERED: METH40VI24 IV (20:04)
== END 2019-02-16 17:30 | DRG 190 ==
LOC: ER 20:42 → TELE3 02-13 00:10
PROVIDERS: ADMIT Internal Medicine Nephrology; ATTEND Internal Medicine Nephrology
DX: J44.1 Chronic obstructive pulmonary disease with (acute) exacerbation (principal); J18.1 Lobar pneumonia, unspecified organism; I50.33 Acute on chronic diastolic (congestive) heart failure; I13.0 Hypertensive heart and chronic kidney disease with heart failure and stage 1 through stage 4 chronic kidney disease, or unspecified chronic kidney disease; G72.0 Drug-induced myopathy; E22.2 Syndrome of inappropriate secretion of antidiuretic hormone; J98.11 Atelectasis; J44.0 Chronic obstructive pulmonary disease with (acute) lower respiratory infection; J20.9 Acute bronchitis, unspecified; N18.2 Chronic kidney disease, stage 2 (mild); K22.8 Other specified diseases of esophagus; F39 Unspecified mood [affective] disorder; K44.9 Diaphragmatic hernia without obstruction or gangrene; Z88.0 Allergy status to penicillin; E11.22 Type 2 diabetes mellitus with diabetic chronic kidney disease; T38.0X5A Adverse effect of glucocorticoids and synthetic analogues, initial encounter; Y92.039 Unspecified place in apartment as the place of occurrence of the external cause; E66.9 Obesity, unspecified; E78.5 Hyperlipidemia, unspecified; E83.42 Hypomagnesemia; E87.6 Hypokalemia; F03.90 Unspecified dementia, unspecified severity, without behavioral disturbance, psychotic disturbance, mood disturbance, and anxiety; I25.10 Atherosclerotic heart disease of native coronary artery without angina pectoris; K22.70 Barrett's esophagus without dysplasia; Z79.02 Long term (current) use of antithrombotics/antiplatelets; Z79.51 Long term (current) use of inhaled steroids; Z79.899 Other long term (current) drug therapy; Z90.710 Acquired absence of both cervix and uterus; I08.0 Rheumatic disorders of both mitral and aortic valves; R21 Rash and other nonspecific skin eruption
CPT/HCPCS: 36415; 36600; 70030-TC; 71045; 83605; 83735; 84100; 84443; 85025; 87040; 87086; 87400; 93005; 93307; 94640; A4663; G0378; J0692; J1650; J1940; J1956; J2920; J2930; J3370; J3475; J3590; J7060; J8597

== ENCOUNTER 2019-08-23 16:39 | Inpatient (IN) | payer MEDICARE, OTHER ==
[~2019-08-23] VITALS: Ht 152.4 cm; Wt 59.0 kg
[~2019-08-23 16:39] MED LIST changes: -BUDESONIDE; +FLUT1BLS IH; -FLUT1DIS28 INH; -IPRA3AMP22 IH; -IPRA4AER IH; +LEVO250P3 IV; +METH40VI24 IV; +SUCR1ORA4 PO; -SUCR1TAB PO
[2019-08-23] MEDS ORDERED: ASPIRIN 81 MG TAB.CHEW ONE (17:00)
[2019-08-23] MEDS ORDERED: ASPIRIN 81 MG TAB.CHEW PO ONE (17:00)
[2019-08-23 17:24] LABS: BASOPHILS % (AUTO) 0.5 % (0.0-2.0); EOSINOPHILS % (AUTO) 0.4 % (0.0-7.0); HEMATOCRIT 33.8 % (31.2-41.9); HEMOGLOBIN 11.5 g/dL (10.9-14.3); LYMPHOCYTES # (AUTO) 1.3 K/uL (20.0-40.0); LYMPHOCYTES % (AUTO) 15.9 % (20.5-51.5); MEAN CORPUSCULAR HEMOGLOBIN 28.2 uug (24.7-32.8); MEAN CORPUSCULAR HGB CONC 34 g/dL (32.3-35.6); MEAN CORPUSCULAR VOLUME 82.9 fL (75.5-95.3); MONOCYTES # (AUTO) 0.7 K/uL (2.0-10.0); MONOCYTES % (AUTO) 8.6 % (0.0-11.0); NEUTROPHILS # (AUTO) 5.9 K/uL (1.8-8.9); NEUTROPHILS % (AUTO) 74.6 % (38.5-71.5); PLATELET COUNT (AUTO) 431 K/uL (179-408); RED BLOOD CELL COUNT(AUTO) 4.07 MIL/uL (3.63-4.92); WHITE BLOOD COUNT (AUTO) 7.9 K/uL (3.8-11.8)
[2019-08-23 17:33] LABS: POTASSIUM 3.7 mmol/L (3.5-5.1)
[2019-08-23 17:46] LABS: BILIRUBIN,DIRECT 0.1 mg/dL (0.0-0.2); BILIRUBIN,TOTAL 0.2 mg/dL (0.2-1.0); TOTAL PROTEIN, SERUM 6.4 g/dL (6.4-8.2)
[2019-08-23] MEDS ORDERED: DICLOFENAC TOP (17:46)
[2019-08-23] MEDS ORDERED: METO-295 PO (17:46)
[2019-08-23] MEDS ORDERED: FLUT1DIS28 IH (17:46)
[2019-08-23] MEDS ORDERED: budesonide (17:46)
[2019-08-23] MEDS ORDERED: PRED1TAB PO (17:46)
--- NOTE | 2019-08-23 17:49 | NUR ---
pt is in room #1b. dr Romero evaluated the pt.
[2019-08-23] MEDS ORDERED: methylPREDNISolone SOD SUCC 125 MG/2 ML VIAL IV ONE (18:00)
--- NOTE | 2019-08-23 18:00 | NUR ---
CALLED PT DAUGHTER, SUSHMA ESPAÑA, , AND GOT THE MEDICATIONS LIST.
[2019-08-23] MEDS ORDERED: methylPREDNISolone SOD SUCC 125 MG/2 ML VIAL ONE (18:07)
[2019-08-23] MEDS ORDERED: ERGO500040 (18:17)
--- NOTE | 2019-08-23 19:02 | NUR ---
report given to rn obgynretail shift manager.
--- NOTE | 2019-08-23 20:20 | NUR ---
Report given to Therese CONNER Tele.
--- NOTE | 2019-08-23 20:37 | NUR ---
Patient received from ER and transferred to bed.
--- NOTE | 2019-08-23 20:45 | NUR ---
New Admission Patient received into care from ER via [facility]. Patient is Syriac speaking only but does understand some Slovenian. Patient is alert/oriented x2 and is complaining of pain at 8/10 described. All assessments completed. All safety, allergy, and fall precaution measures are in place. Call light and personal items are within reach at all times. Will continue to monitor and assess.
[2019-08-23 21:06] VITALS: BP 152/85
[2019-08-23] MEDS ORDERED: ONDANSETRON 4 MG/2 ML VIAL IV PRN (23:30)
[2019-08-23] MEDS ORDERED: MAGNESIUM HYDROXIDE 30 ML LIQUID UDC PO PRN (23:30)
[2019-08-23] MEDS ORDERED: Z GUARD REMEDY PASTE 57 GM TUBE TOP PRN (23:30)
[2019-08-23] MEDS ORDERED: HYDROCODONE/APAP 5-325MG TABLET PO PRN (23:30)
[2019-08-23] MEDS ORDERED: ACETAMINOPHEN 325 MG TABLET PO PRN (23:30)
[2019-08-23] MEDS ORDERED: DEXTROSE 50% 50 ML DISP.SYRIN IV PRN (23:45)
[2019-08-24 00:35] VITALS: BP 138/66
--- NOTE | 2019-08-24 01:06 | NUR ---
PT IN BED, REQUESTED SLEEPING PILL,AMBIEN 5 MG.PO GIVEN.
[2019-08-24] MEDS: ZOLPIDEM 5 MG TABLET PO PRN ×2 (01:12→22:45)
[2019-08-24] MEDS: AZITHROMYCIN IV 500 MG in IV DEXTROSE 5% 250 ML IV SCH ×2 (01:55→22:45)
[2019-08-24] MEDS: methylPREDNISolone SOD SUCC 40 MG/ML VIAL IV SCH ×3 (05:28→21:04)
[2019-08-24 05:40] VITALS: BP 118/63
--- NOTE | 2019-08-24 06:00 | NUR ---
Patient slept intermittently throughout night after admission to unit with no complaints of pain or discomfort after receiving prescribed sleeping medication. IV ATB were provided as ordered and tolerated well, with no adverse side effects verbalized by patient or noted/observed by this nurse. IV cath 22g saline lock on right hand is patent and intact. All safety, fall, allergy, and isolation precautions are in place. Call light and personal items are within reach.
[2019-08-24] MEDS: BLOOD SUGAR DIAGNOSTIC 1 EACH STRIP VI SCH ×4 (06:39→21:22)
[2019-08-24 07:10] LABS: BASOPHILS % (AUTO) 0.1 % (0.0-2.0); HEMATOCRIT 34.5 % (31.2-41.9); HEMOGLOBIN 11.5 g/dL (10.9-14.3); LYMPHOCYTES # (AUTO) 0.7 K/uL (20.0-40.0); LYMPHOCYTES % (AUTO) 10.5 % (20.5-51.5); MEAN CORPUSCULAR HEMOGLOBIN 27.9 uug (24.7-32.8); MEAN CORPUSCULAR HGB CONC 33 g/dL (32.3-35.6); MEAN CORPUSCULAR VOLUME 83.9 fL (75.5-95.3); MONOCYTES # (AUTO) 0.1 K/uL (2.0-10.0); MONOCYTES % (AUTO) 1.8 % (0.0-11.0); NEUTROPHILS % (AUTO) 87.6 % (38.5-71.5); PLATELET COUNT (AUTO) 428 K/uL (179-408); RED BLOOD CELL COUNT(AUTO) 4.12 MIL/uL (3.63-4.92); WHITE BLOOD COUNT (AUTO) 6.9 K/uL (3.8-11.8)
[2019-08-24 07:20] LABS: MAGNESIUM 1.8 mg/dL (1.8-2.4); PHOSPHOROUS 4.1 mg/dL (2.5-4.9); POTASSIUM 4.2 mmol/L (3.5-5.1)
[2019-08-24] MEDS: INSULIN REGULAR, HUMAN 300 UNIT/3 ML VIAL SQ PRN ×4 (08:07→21:29)
--- NOTE | 2019-08-24 08:10 | NUR ---
Patient in bed, awake and verbally responsive. Yoruba speaking. On Oxygen at 2L via nasal canula, saturating 95%. No SOB. No complain of pain or discomfort, still awaiting for covid 19 result. Proper PPE strictly observed. Kept clean and comfortable. Will continue to monitor.
[2019-08-24] MEDS ORDERED: ERGOCALCIFEROL 50,000 UNIT CAPSULE PO SCH (09:00)
[2019-08-24] MEDS: FLUTICASONE/VILANTEROL 1 EACH BLST.W.DEV INH SCH (09:30)
[2019-08-24] MEDS: hydrALAZINE HCL 50 MG TABLET PO SCH ×3 (09:30→16:36)
[2019-08-24] MEDS: VENLAFAXINE XR 75 MG TAB.ER.24H PO SCH (09:30)
[2019-08-24] MEDS: AMLODIPINE 10 MG TABLET PO SCH (09:30)
[2019-08-24] MEDS: PANTOPRAZOLE SODIUM 40 MG TABLET.DR PO SCH ×2 (09:31→16:36)
[2019-08-24] MEDS: CLOPIDOGREL 75 MG TABLET PO SCH (09:31)
[2019-08-24] MEDS: CALCIUM CARB/VITAMIN D 500MG-200UNITS TABLET PO SCH ×2 (09:31→16:36)
[2019-08-24] MEDS: predniSONE 1 MG TABLET PO SCH (09:31)
[2019-08-24] MEDS: METOCLOPRAMIDE HCL 10 MG TABLET PO SCH ×3 (09:31→16:36)
[2019-08-24] MEDS: ENOXAPARIN SODIUM 30 MG/0.3 ML DISP.SYRIN SUBCUT SCH (10:37)
[2019-08-24 12:00] VITALS: BP 107/53
[2019-08-24 16:00] VITALS: BP 117/59
--- NOTE | 2019-08-24 18:20 | NUR ---
Patient in bed, awake and verbally responsive. On Oxygen at 2L via nasal canula, saturating 96%. No complain of pain of pain or discomfort. last Blood Sugar was 162, 3 units given per sliding scale. All needs attended and met. kept clean and comfortable. Will endorse to Oncoming Nurse.
--- NOTE | 2019-08-24 20:00 | NUR ---
Patient received into care, laying in bed, watching television. Pt is alert/oriented x2 and has no complaints of pain or discomfort at this time. IV site on right hand is patent and intact. All safety, fall, allergy, and isolation precautions are in place. Call light and personal items are within reach at all times. Will continue to monitor and assess.
[2019-08-24 20:04] VITALS: BP 107/44
[2019-08-24] MEDS: MONTELUKAST SODIUM 10 MG TABLET PO SCH (21:06)
[2019-08-24] MEDS: ATORVASTATIN 10 MG TABLET PO SCH (21:06)
[2019-08-24] MEDS: QUETIAPINE FUMARATE 100 MG TABLET PO SCH (21:06)
[2019-08-25] VITALS: BP 108/53
[2019-08-25 04:56] VITALS: BP 122/50
--- NOTE | 2019-08-25 05:14 | NUR ---
Pt slept throughout night following administration of prescribed sleeping medication at 2345h. Pt's right hand 22g IV cath is patent and intact, flushing easily. Prescribed IV antibiotic provided as ordered and tolerated well, with no adverse side effects verbalized by pt or noted/observed by this nurse. Pt's weight is 125.3lbs per bed scale. All prescribed medications provided as ordered and tolerated well, with no adverse side effects verbalized by pt or noted/observed by this nurse. All safety, allergy, fall, fluid restriction, and isolation precautions remain in effect. Call light and personal items remain within reach.
[2019-08-25] MEDS: methylPREDNISolone SOD SUCC 40 MG/ML VIAL IV SCH ×3 (05:59→21:21)
[2019-08-25] MEDS: BLOOD SUGAR DIAGNOSTIC 1 EACH STRIP VI SCH ×4 (06:44→20:35)
[2019-08-25] MEDS: INSULIN REGULAR, HUMAN 300 UNIT/3 ML VIAL SQ PRN ×4 (07:28→20:28)
--- NOTE | 2019-08-25 08:00 | NUR ---
Patient in bed, awake and verbally responsive. Yi speaking. On Oxygen at 2L via nasal canula, saturating 96%. No complain of Pain or discomfort. awaiting for covid 19 result. kept clean and comfortable. Will continue to monitor.
[2019-08-25] MEDS: FLUTICASONE/VILANTEROL 1 EACH BLST.W.DEV INH SCH (08:28)
[2019-08-25] MEDS: hydrALAZINE HCL 50 MG TABLET PO SCH ×3 (08:28→16:28)
[2019-08-25] MEDS: CLOPIDOGREL 75 MG TABLET PO SCH (08:29)
[2019-08-25] MEDS: METOCLOPRAMIDE HCL 10 MG TABLET PO SCH ×3 (08:29→16:27)
[2019-08-25] MEDS: predniSONE 1 MG TABLET PO SCH (08:29)
[2019-08-25] MEDS: VENLAFAXINE XR 75 MG TAB.ER.24H PO SCH (08:29)
[2019-08-25] MEDS: CALCIUM CARB/VITAMIN D 500MG-200UNITS TABLET PO SCH ×2 (08:29→16:27)
[2019-08-25] MEDS: AMLODIPINE 10 MG TABLET PO SCH (08:29)
[2019-08-25] MEDS: PANTOPRAZOLE SODIUM 40 MG TABLET.DR PO SCH ×2 (08:29→16:27)
[2019-08-25] MEDS: ENOXAPARIN SODIUM 30 MG/0.3 ML DISP.SYRIN SUBCUT SCH (08:40)
[2019-08-25] MEDS ORDERED: ERGOCALCIFEROL 50,000 UNIT CAPSULE PO SCH (09:00)
--- NOTE | 2019-08-25 10:12 | NUR ---
Dr. Rader in the Floor, made aware of patient Negative covid 19 result.
[2019-08-25 11:45] VITALS: BP 106/47
[2019-08-25 16:06] VITALS: BP 119/54
--- NOTE | 2019-08-25 18:02 | NUR ---
Patient in bed, awake and verbally responsive. No signs of distress noted. Afebrile. No complain of Pain or discomfort. Last Blood Sugar was 151, units given per sliding scale. All needs attended and met. kept clean and comfortable. Will endorse to Oncoming Nurse.
[2019-08-25] MEDS: QUETIAPINE FUMARATE 100 MG TABLET PO SCH (20:13)
[2019-08-25] MEDS: MONTELUKAST SODIUM 10 MG TABLET PO SCH (20:14)
[2019-08-25] MEDS: ATORVASTATIN 10 MG TABLET PO SCH (20:16)
[2019-08-25 20:29] VITALS: BP 110/44
[2019-08-25] MEDS: AZITHROMYCIN IV 500 MG in IV DEXTROSE 5% 250 ML IV SCH (22:24)
[2019-08-26 00:37] VITALS: BP 123/54
[2019-08-26 05:22] VITALS: BP 111/51
[2019-08-26] MEDS: BLOOD SUGAR DIAGNOSTIC 1 EACH STRIP VI SCH ×4 (06:59→21:31)
[2019-08-26] MEDS: methylPREDNISolone SOD SUCC 40 MG/ML VIAL IV SCH ×3 (07:02→21:21)
--- NOTE | 2019-08-26 07:11 | NUR ---
slept at long intervals,voiding good, in no acute distress,no sob, vital signs stable.
--- NOTE | 2019-08-26 07:30 | NUR ---
Received patient in bed alert and oriented time 2-3. No signs of respiratory distress noted, patient is saturating well on nasal cannula 2 liters. IV in right hand 20 gauge hep lock. No report of pain at this time. Safety precautions implemented, patient's bed is in the lowest position and locked, with call light and belongings within reach. Will continue to monitor and observe.
--- NOTE | 2019-08-26 08:15 | NUR ---
Unable to find patients inhaler (fluticasone) called pharmacy and they are aware. Will send a new one up to the floor.
[2019-08-26] MEDS: predniSONE 1 MG TABLET PO SCH (08:25)
[2019-08-26] MEDS: INSULIN REGULAR, HUMAN 300 UNIT/3 ML VIAL SQ PRN ×4 (08:25→21:33)
[2019-08-26] MEDS: CALCIUM CARB/VITAMIN D 500MG-200UNITS TABLET PO SCH ×2 (08:25→16:53)
[2019-08-26] MEDS: PANTOPRAZOLE SODIUM 40 MG TABLET.DR PO SCH ×2 (08:26→16:53)
[2019-08-26] MEDS: AMLODIPINE 10 MG TABLET PO SCH (08:26)
[2019-08-26] MEDS: CLOPIDOGREL 75 MG TABLET PO SCH (08:26)
[2019-08-26] MEDS: METOCLOPRAMIDE HCL 10 MG TABLET PO SCH ×3 (08:26→16:53)
[2019-08-26] MEDS: VENLAFAXINE XR 75 MG TAB.ER.24H PO SCH (08:26)
[2019-08-26] MEDS: hydrALAZINE HCL 50 MG TABLET PO SCH ×3 (08:27→16:59)
[2019-08-26] MEDS: ENOXAPARIN SODIUM 30 MG/0.3 ML DISP.SYRIN SUBCUT SCH (08:29)
[2019-08-26] MEDS: FLUTICASONE/VILANTEROL 1 EACH BLST.W.DEV INH SCH (09:39)
[2019-08-26 11:50] VITALS: BP 121/57
[2019-08-26 16:00] VITALS: BP 125/59
[2019-08-26 17:10] LABS: BASOPHILS % (AUTO) 0.1 % (0.0-2.0); HEMATOCRIT 35.1 % (31.2-41.9); HEMOGLOBIN 11.7 g/dL (10.9-14.3); LYMPHOCYTES # (AUTO) 0.4 K/uL (20.0-40.0); LYMPHOCYTES % (AUTO) 5.3 % (20.5-51.5); MEAN CORPUSCULAR HEMOGLOBIN 27.8 uug (24.7-32.8); MEAN CORPUSCULAR HGB CONC 33 g/dL (32.3-35.6); MEAN CORPUSCULAR VOLUME 83.6 fL (75.5-95.3); MONOCYTES # (AUTO) 0.5 K/uL (2.0-10.0); MONOCYTES % (AUTO) 6.3 % (0.0-11.0); NEUTROPHILS # (AUTO) 6.4 K/uL (1.8-8.9); NEUTROPHILS % (AUTO) 88.3 % (38.5-71.5); PLATELET COUNT (AUTO) 471 K/uL (179-408); WHITE BLOOD COUNT (AUTO) 7.2 K/uL (3.8-11.8)
[2019-08-26 17:22] LABS: CREATININE 1.2 mg/dL (0.6-1.3); PHOSPHOROUS 3.3 mg/dL (2.5-4.9); POTASSIUM 4.8 mmol/L (3.5-5.1)
--- NOTE | 2019-08-26 18:36 | NUR ---
Patient is resting comfortably in bed watching television. She is saturating well on L of oxygen via nasal cannula. Safety precautions are in place bed in lowest position and locked with alarm activation and call light and belongings are within reach. Will endorse to the oncoming nurse.
[2019-08-26 20:06] VITALS: BP 134/62
[2019-08-26] MEDS: ZOLPIDEM 5 MG TABLET PO PRN (21:21)
[2019-08-26] MEDS: MONTELUKAST SODIUM 10 MG TABLET PO SCH (21:21)
[2019-08-26] MEDS: QUETIAPINE FUMARATE 100 MG TABLET PO SCH (21:21)
[2019-08-26] MEDS: ATORVASTATIN 10 MG TABLET PO SCH (21:21)
[2019-08-27 00:03] VITALS: BP 131/53
[2019-08-27 04:50] VITALS: BP 152/62
--- NOTE | 2019-08-27 05:07 | NUR ---
PATIENT AAOX3. V/S STABLE AND NO SIGNS OF ACUTE DISTRESS NOTED THROUGHOUT SHIFT. SAT AT 95% ON RA. RIGHT HAND PIV IN TACT AND PATENT. NSR ON TELE MONITOR. NEEDS ATTENDED TO AND MEDICATIONS ADMINISTERED. SAFETY MEASURES IN PLACE AND CALL LIGHT WITHIN REACH. NEEDS ATTENDED TO. MEDICATIONS ADMINISTERED WITHOUT ASE. WILL CONTINUE TO MONITOR AND ASSESS.
[2019-08-27 05:59] LABS: BASOPHILS % (AUTO) 0.1 % (0.0-2.0); HEMATOCRIT 35.8 % (31.2-41.9); HEMOGLOBIN 11.9 g/dL (10.9-14.3); LYMPHOCYTES # (AUTO) 0.6 K/uL (20.0-40.0); LYMPHOCYTES % (AUTO) 9.3 % (20.5-51.5); MEAN CORPUSCULAR HEMOGLOBIN 27.7 uug (24.7-32.8); MEAN CORPUSCULAR HGB CONC 33 g/dL (32.3-35.6); MEAN CORPUSCULAR VOLUME 83.2 fL (75.5-95.3); MONOCYTES # (AUTO) 0.3 K/uL (2.0-10.0); MONOCYTES % (AUTO) 5.6 % (0.0-11.0); NEUTROPHILS # (AUTO) 5.2 K/uL (1.8-8.9); PLATELET COUNT (AUTO) 439 K/uL (179-408); WHITE BLOOD COUNT (AUTO) 6.1 K/uL (3.8-11.8)
[2019-08-27] MEDS: methylPREDNISolone SOD SUCC 40 MG/ML VIAL IV SCH ×3 (05:59→20:35)
[2019-08-27 06:08] LABS: BILIRUBIN,TOTAL 0.2 mg/dL (0.2-1.0); MAGNESIUM 2.1 mg/dL (1.8-2.4); PHOSPHOROUS 3.9 mg/dL (2.5-4.9); POTASSIUM 4.3 mmol/L (3.5-5.1); TOTAL PROTEIN, SERUM 6.1 g/dL (6.4-8.2)
[2019-08-27] MEDS: BLOOD SUGAR DIAGNOSTIC 1 EACH STRIP VI SCH ×4 (07:16→20:30)
[2019-08-27] MEDS: INSULIN REGULAR, HUMAN 300 UNIT/3 ML VIAL SQ PRN ×3 (07:25→20:26)
--- NOTE | 2019-08-27 07:30 | NUR ---
Received patient in bed alert and oriented time 2-3. No signs of respiratory distress noted, No pain at this time. Safety precautions implemented, patient's bed is in the lowest position and locked, with call light and belongings within reach. Will continue to monitor and observe.
[2019-08-27] MEDS: CALCIUM CARB/VITAMIN D 500MG-200UNITS TABLET PO SCH ×2 (08:05→16:15)
[2019-08-27] MEDS: AMLODIPINE 10 MG TABLET PO SCH (08:05)
[2019-08-27] MEDS: predniSONE 1 MG TABLET PO SCH (08:05)
[2019-08-27] MEDS: ENOXAPARIN SODIUM 30 MG/0.3 ML DISP.SYRIN SUBCUT SCH (08:06)
[2019-08-27] MEDS: hydrALAZINE HCL 50 MG TABLET PO SCH ×3 (08:06→16:21)
[2019-08-27] MEDS: METOCLOPRAMIDE HCL 10 MG TABLET PO SCH ×3 (08:06→16:15)
[2019-08-27] MEDS: CLOPIDOGREL 75 MG TABLET PO SCH (08:06)
[2019-08-27] MEDS: PANTOPRAZOLE SODIUM 40 MG TABLET.DR PO SCH ×2 (08:06→16:15)
[2019-08-27] MEDS: VENLAFAXINE XR 75 MG TAB.ER.24H PO SCH (08:06)
[2019-08-27] MEDS: FLUTICASONE/VILANTEROL 1 EACH BLST.W.DEV INH SCH (08:12)
[2019-08-27 11:00] VITALS: BP 130/61
[2019-08-27] MEDS: ALBUTEROL SULFATE 2.5 MG/3 ML NEBU NEB PRN (15:20)
[2019-08-27] MEDS: METOCLOPRAMIDE HCL 5 MG TABLET PO SCH ×2 (15:50→16:21)
[2019-08-27 16:00] VITALS: BP 114/55
[2019-08-27] MEDS ORDERED: methylPREDNISolone SOD SUCC 40 MG/ML VIAL IV SCH (17:00)
[2019-08-27] MEDS: QUETIAPINE FUMARATE 100 MG TABLET PO SCH (20:26)
[2019-08-27] MEDS: ATORVASTATIN 10 MG TABLET PO SCH (20:26)
[2019-08-27] MEDS: MONTELUKAST SODIUM 10 MG TABLET PO SCH (20:30)
[2019-08-27 20:56] VITALS: BP 122/55
[2019-08-27] MEDS: ZOLPIDEM 5 MG TABLET PO PRN (21:30)
[2019-08-28 01:31] VITALS: BP 125/53
[2019-08-28 05:15] VITALS: BP 148/62
--- NOTE | 2019-08-28 05:43 | NUR ---
Patient rested well in between care; assisted with needs; safety maintained; continue to monitor; continue plan of care.
[2019-08-28] MEDS: BLOOD SUGAR DIAGNOSTIC 1 EACH STRIP VI SCH ×3 (06:35→15:42)
[2019-08-28 06:57] LABS: HEMATOCRIT 35.8 % (31.2-41.9); HEMOGLOBIN 12.2 g/dL (10.9-14.3); LYMPHOCYTES # (AUTO) 0.6 K/uL (20.0-40.0); LYMPHOCYTES % (AUTO) 11.5 % (20.5-51.5); MEAN CORPUSCULAR HEMOGLOBIN 28.2 uug (24.7-32.8); MEAN CORPUSCULAR HGB CONC 34 g/dL (32.3-35.6); MEAN CORPUSCULAR VOLUME 82.7 fL (75.5-95.3); MONOCYTES # (AUTO) 0.4 K/uL (2.0-10.0); MONOCYTES % (AUTO) 7.6 % (0.0-11.0); NEUTROPHILS # (AUTO) 4.4 K/uL (1.8-8.9); NEUTROPHILS % (AUTO) 80.9 % (38.5-71.5); PLATELET COUNT (AUTO) 434 K/uL (179-408); RED BLOOD CELL COUNT(AUTO) 4.32 MIL/uL (3.63-4.92); WHITE BLOOD COUNT (AUTO) 5.4 K/uL (3.8-11.8)
[2019-08-28 07:22] LABS: BILIRUBIN,TOTAL 0.2 mg/dL (0.2-1.0); CREATININE 1.1 mg/dL (0.6-1.3); MAGNESIUM 2.2 mg/dL (1.8-2.4); PHOSPHOROUS 4.2 mg/dL (2.5-4.9); POTASSIUM 4.5 mmol/L (3.5-5.1)
[2019-08-28] MEDS: INSULIN REGULAR, HUMAN 300 UNIT/3 ML VIAL SQ PRN ×3 (07:31→16:39)
[2019-08-28] MEDS: PANTOPRAZOLE SODIUM 40 MG TABLET.DR PO SCH ×2 (08:10→16:28)
[2019-08-28] MEDS: predniSONE 1 MG TABLET PO SCH (08:11)
[2019-08-28] MEDS: VENLAFAXINE XR 75 MG TAB.ER.24H PO SCH (08:11)
[2019-08-28] MEDS: hydrALAZINE HCL 50 MG TABLET PO SCH ×3 (08:11→16:28)
[2019-08-28] MEDS: CLOPIDOGREL 75 MG TABLET PO SCH (08:11)
[2019-08-28] MEDS: METOCLOPRAMIDE HCL 10 MG TABLET PO SCH ×3 (08:11→16:29)
[2019-08-28] MEDS: CALCIUM CARB/VITAMIN D 500MG-200UNITS TABLET PO SCH ×2 (08:11→16:28)
[2019-08-28] MEDS: AMLODIPINE 10 MG TABLET PO SCH (08:11)
[2019-08-28] MEDS: FLUTICASONE/VILANTEROL 1 EACH BLST.W.DEV INH SCH (08:20)
[2019-08-28] MEDS: ENOXAPARIN SODIUM 30 MG/0.3 ML DISP.SYRIN SUBCUT SCH (08:21)
[2019-08-28] MEDS: methylPREDNISolone SOD SUCC 40 MG/ML VIAL IV SCH ×2 (08:32→16:31)
[2019-08-28 11:39] VITALS: BP 129/51
[2019-08-28] MEDS: ALBUTEROL SULFATE 2.5 MG/3 ML NEBU NEB PRN (12:41)
[2019-08-28 16:00] VITALS: BP 117/49
[2019-08-28 16:28] VITALS: BP 120/50
--- NOTE | 2019-08-28 18:10 | NUR ---
dc orders received noted and carried out,dc instruction and education given to the pt,dc pt to aru via bed in stable condition
[2019-08-28] MEDS ORDERED: ONDA-104 IVP (20:28)
[2019-08-28] MEDS ORDERED: FLUT1DIS27 INH (20:28)
[2019-08-28] MEDS ORDERED: ALBU2.5V13 IH (20:28)
[2019-08-28] MEDS ORDERED: ZOLP5TAB8 PO (20:28)
[2019-08-28] MEDS ORDERED: PRED20TA PO (20:28)
[2019-08-28] MEDS ORDERED: MAGN400O6 PO (20:28)
[2019-08-28] MEDS ORDERED: BLOO-668 IN (20:28)
[2019-08-28] MEDS ORDERED: ACET-3117 PO (20:28)
[2019-08-28] MEDS ORDERED: CALC500T55 PO (20:28)
[2019-08-28] MEDS ORDERED: ERGO500040 PO (20:28)
[2019-08-28] MEDS ORDERED: ENOX40DI SQ (20:28)
== END 2019-08-28 18:36 | DRG 189 ==
LOC: ER 16:39 → TELE3 20:24
PROVIDERS: ADMIT Internal Medicine; ATTEND Internal Medicine
DX: J96.20 Acute and chronic respiratory failure, unspecified whether with hypoxia or hypercapnia (principal); J44.1 Chronic obstructive pulmonary disease with (acute) exacerbation; I50.32 Chronic diastolic (congestive) heart failure; E22.2 Syndrome of inappropriate secretion of antidiuretic hormone; J98.11 Atelectasis; I11.0 Hypertensive heart disease with heart failure; K44.9 Diaphragmatic hernia without obstruction or gangrene; K22.70 Barrett's esophagus without dysplasia; Z88.0 Allergy status to penicillin; E11.9 Type 2 diabetes mellitus without complications; E78.5 Hyperlipidemia, unspecified; M19.90 Unspecified osteoarthritis, unspecified site; K29.70 Gastritis, unspecified, without bleeding; K22.8 Other specified diseases of esophagus; F39 Unspecified mood [affective] disorder; G47.00 Insomnia, unspecified; R53.81 Other malaise; D64.9 Anemia, unspecified; F03.90 Unspecified dementia, unspecified severity, without behavioral disturbance, psychotic disturbance, mood disturbance, and anxiety
CPT/HCPCS: 36415; 70030-TC; 71045; 83735; 84100; 85025; 93005; 93307; 94640; A4663; G0378; J0456; J1650; J1815; J2920; J2930; J7030; J7050; J7060; J7512; J8597; U0003-CS

== ENCOUNTER 2019-08-28 17:57 | Inpatient (IN) | payer MEDICARE, OTHER ==
[~2019-08-28] VITALS: Ht 152.4 cm; Wt 54.1 kg
[~2019-08-28 17:57] MED LIST changes: -CICL15CR12 TP; +DICLOFENAC TOP; -DOCU100C36 PO; +ERGO500040; -ERGO500040 PO; -FLUT1BLS IH; +FLUT1DIS28 IH; -IPRA0.2S6 NEB; -LEVO250P3 IV; -MECL-159 PO; -METH40VI24 IV; +METO-295 PO; -ONDA4TAB11 PO; +PRED1TAB PO; -PRED20TA PO; -SUCR1ORA4 PO; +budesonide
[2019-08-28 20:00] VITALS: BP 118/57
--- NOTE | 2019-08-28 20:00 | NUR ---
Admitted patient from [facility] via bed. Awake, alert and oriented x3. Yi speaking but speaks quite good Armenian, Able to make needs known. Routine admission care done. Plan of care initiated.
[2019-08-28] MEDS ORDERED: PRED20TA PO (20:28)
[2019-08-28] MEDS ORDERED: ALBU2.5V13 IH (20:28)
[2019-08-28] MEDS ORDERED: ZOLP5TAB8 PO (20:28)
[2019-08-28] MEDS ORDERED: FLUT1DIS27 INH (20:28)
[2019-08-28] MEDS ORDERED: ERGO500040 PO (20:28)
[2019-08-28] MEDS ORDERED: ONDA-104 IVP (20:28)
[2019-08-28] MEDS ORDERED: BLOO-668 IN (20:28)
[2019-08-28] MEDS ORDERED: CALC500T53 PO (20:28)
[2019-08-28] MEDS ORDERED: ACET-3117 PO (20:28)
[2019-08-28] MEDS ORDERED: ENOX40DI SQ (20:28)
[2019-08-28] MEDS ORDERED: MAGN400O6 PO (20:28)
[2019-08-28] MEDS ORDERED: Z GUARD REMEDY PASTE 57 GM TUBE TOP PRN (20:45)
[2019-08-28] MEDS ORDERED: DEXTROSE 50% 50 ML DISP.SYRIN IV PRN (21:15)
[2019-08-28] MEDS: ZOLPIDEM 5 MG TABLET PO PRN (22:49)
[2019-08-29 04:52] VITALS: BP 120/64
--- NOTE | 2019-08-29 05:53 | NUR ---
Shift End Report: Vs stable, Slept well with Ambien. No complaint presented all night. All needs attended and met. No fall/injury. No s/s of hypo/hyperglycemia. No significant event reported all night. Continue current rehab plan of care.
[2019-08-29] MEDS: BLOOD SUGAR DIAGNOSTIC 1 EACH STRIP VI SCH ×4 (06:03→20:44)
[2019-08-29 07:30] VITALS: BP 164/74
[2019-08-29] MEDS: INSULIN REGULAR, HUMAN 300 UNIT/3 ML VIAL SQ PRN ×4 (09:25→20:46)
[2019-08-29] MEDS ORDERED: ALBUTEROL SULFATE 2.5 MG/ 0.5 ML NEBU IH PRN (10:00)
[2019-08-29] MEDS ORDERED: MAGNESIUM HYDROXIDE 30 ML LIQUID UDC PO PRN (10:00)
[2019-08-29] MEDS ORDERED: ZOLPIDEM 5 MG TABLET PO PRN (10:00)
[2019-08-29] MEDS ORDERED: ACETAMINOPHEN 325 MG TABLET PO PRN ×2 (10:00)
[2019-08-29] MEDS ORDERED: ONDANSETRON HCL 4 MG TABLET PO PRN (10:00)
[2019-08-29 10:05] VITALS: BP 140/60
[2019-08-29] MEDS ORDERED: ONDANSETRON 4 MG/2 ML VIAL IV PRN (10:30)
[2019-08-29] MEDS: ENOXAPARIN SODIUM 40 MG/0.4 ML DISP.SYRIN SQ SCH (10:45)
--- NOTE | 2019-08-29 11:28 | NUR ---
Received patient awake in bed in stable condition. AOx3, macedonian speaking. Patient tolerated room air with 97% SAO2. Patient ongoing blood sugar monitoring with sliding scale protocol. Patient started therapy evaluation for participation with ADL activities. will continue monitor
[2019-08-29] MEDS ORDERED: BLOOD SUGAR DIAGNOSTIC 1 EACH STRIP VI SCH (11:30)
[2019-08-29] MEDS: METOCLOPRAMIDE HCL 10 MG TABLET PO SCH ×2 (12:44→17:00)
[2019-08-29] MEDS: hydrALAZINE HCL 50 MG TABLET PO SCH ×2 (12:51→17:00)
[2019-08-29 15:14] VITALS: BP 132/64
--- NOTE | 2019-08-29 15:45 | NUR ---
Social Work Note extrusion utility worker provided comfort and emotional support. SW provided patient with the following caregiving resources: [facility]; ([phone]), [facility]; ([phone]), [facility]; ([phone]). extrusion utility worker will continue to remain available to patient and provide ongoing supportive counseling and assess for any psychosocial needs. extrusion utility worker will encourage patient to comply with ARU goals of care.
[2019-08-29] MEDS: CALCIUM CARB/VITAMIN D 500MG-200UNITS TABLET PO SCH (17:00)
[2019-08-29] MEDS: PANTOPRAZOLE SODIUM 40 MG TABLET.DR PO SCH (17:01)
--- NOTE | 2019-08-29 19:46 | NUR ---
Awake and alert, in bed, not in distress. Denies any pain/discomforts at this time. No s/s of hypo/hyperglycemia noted.Safety measures and fall prevention maintained. Continue care as planned.
[2019-08-29 20:01] VITALS: BP 126/59
[2019-08-29] MEDS: MONTELUKAST SODIUM 10 MG TABLET PO SCH (20:40)
[2019-08-29] MEDS: ZOLPIDEM 5 MG TABLET PO PRN (22:05)
[2019-08-30] MEDS: BLOOD SUGAR DIAGNOSTIC 1 EACH STRIP VI SCH ×4 (05:13→20:42)
[2019-08-30 05:33] VITALS: BP 125/62
--- NOTE | 2019-08-30 08:06 | NUR ---
Received patient in bed awake, Pt. is AAO x 3, Lithuanian speaking mostly. Denies any pain. NO acute distress or any SOB noted. Vital signs stable. safety measures in place and will continue with care.
[2019-08-30 08:38] VITALS: BP 144/67
[2019-08-30] MEDS ORDERED: predniSONE 20 MG TABLET PO SCH (09:00)
[2019-08-30] MEDS: ATORVASTATIN 10 MG TABLET PO SCH (09:28)
[2019-08-30] MEDS: CLOPIDOGREL 75 MG TABLET PO SCH (09:28)
[2019-08-30] MEDS: METOCLOPRAMIDE HCL 10 MG TABLET PO SCH ×3 (09:28→16:56)
[2019-08-30] MEDS: VENLAFAXINE XR 75 MG TAB.ER.24H PO SCH (09:28)
[2019-08-30] MEDS: PANTOPRAZOLE SODIUM 40 MG TABLET.DR PO SCH ×2 (09:28→16:56)
[2019-08-30] MEDS: CALCIUM CARB/VITAMIN D 500MG-200UNITS TABLET PO SCH ×2 (09:29→16:56)
[2019-08-30] MEDS: hydrALAZINE HCL 50 MG TABLET PO SCH ×3 (09:29→16:46)
[2019-08-30] MEDS: AMLODIPINE 10 MG TABLET PO SCH (09:30)
[2019-08-30] MEDS: ENOXAPARIN SODIUM 40 MG/0.4 ML DISP.SYRIN SQ SCH (09:31)
[2019-08-30] MEDS: FLUTICASONE/VILANTEROL 1 EACH BLST.W.DEV INH SCH (09:37)
[2019-08-30] MEDS ORDERED: LOPERAMIDE HCL 2 MG CAPSULE PO PRN (12:30)
--- NOTE | 2019-08-30 13:19 | NUR ---
Patient noted with 3 episodes of diarrhea, informed MD with an order for Imodium and lab for stool.
[2019-08-30 16:14] VITALS: BP 101/57
[2019-08-30] MEDS: INSULIN REGULAR, HUMAN 300 UNIT/3 ML VIAL SQ PRN ×2 (18:27→20:44)
--- NOTE | 2019-08-30 19:19 | NUR ---
No complains of diarrhea for the rest of the sift. NO acute distress noted. Due meds administered as ordered. Blood sugar checks done. Needs attended and met, safety measures in place, endorsed to next shift and will continue with care.
[2019-08-30 19:43] VITALS: BP 107/47
[2019-08-30] MEDS: MONTELUKAST SODIUM 10 MG TABLET PO SCH (20:37)
--- NOTE | 2019-08-30 21:00 | NUR ---
Awake and alert, in bed, no signs and symptoms of distress or SOB noted Denies any pain/discomforts at this time. No s/s of hypo/hyperglycemia noted. Accucheck: BS was 300, gave 6 units of insulin. Monitor for /s of hypo/hyperglycemia. All needs attended, kept comfortable. Call light and all personal items within patient reach. Safety measures and fall prevention maintained. Continue care as planned.
[2019-08-31 04:35] VITALS: BP 150/63
--- NOTE | 2019-08-31 05:43 | NUR ---
Slept well throughout the night. No significant events to report. All needs attended to. Stool collected and sent to lab. Continue current rehab plan of care. Addendum: 09/01/19 at 0640 by TUYET FOURNIER RN stool was not collected
[2019-08-31] MEDS: BLOOD SUGAR DIAGNOSTIC 1 EACH STRIP VI SCH ×4 (06:35→20:36)
--- NOTE | 2019-08-31 07:54 | NUR ---
Patient received in bed sleeping, easy to arouse. Pt. is AAO x 3. NO acute distress noted. Safety measures in place and will continue with care.
[2019-08-31] MEDS: predniSONE 10 MG TABLET PO SCH (09:32)
[2019-08-31] MEDS: CLOPIDOGREL 75 MG TABLET PO SCH (09:32)
[2019-08-31] MEDS: CALCIUM CARB/VITAMIN D 500MG-200UNITS TABLET PO SCH ×2 (09:33→16:39)
[2019-08-31] MEDS: PANTOPRAZOLE SODIUM 40 MG TABLET.DR PO SCH ×2 (09:33→16:38)
[2019-08-31] MEDS: METOCLOPRAMIDE HCL 10 MG TABLET PO SCH ×3 (09:33→16:38)
[2019-08-31] MEDS: AMLODIPINE 10 MG TABLET PO SCH (09:33)
[2019-08-31] MEDS: VENLAFAXINE XR 75 MG TAB.ER.24H PO SCH (09:33)
[2019-08-31] MEDS: ATORVASTATIN 10 MG TABLET PO SCH (09:33)
[2019-08-31] MEDS: hydrALAZINE HCL 50 MG TABLET PO SCH ×3 (09:34→16:39)
[2019-08-31] MEDS: ENOXAPARIN SODIUM 40 MG/0.4 ML DISP.SYRIN SQ SCH (09:38)
[2019-08-31] MEDS: FLUTICASONE/VILANTEROL 1 EACH BLST.W.DEV INH SCH (09:39)
[2019-08-31] MEDS: INSULIN REGULAR, HUMAN 300 UNIT/3 ML VIAL SQ PRN ×3 (12:56→20:40)
[2019-08-31 15:30] VITALS: BP 128/49
--- NOTE | 2019-08-31 18:21 | NUR ---
All due medications administered as ordered and scheduled and tolerated. No episodes of hypo/hyperglycemia noted. On continuos PT/OT therapy. Patient was up for physical therapy. Skin kept clean and dry, needs attended, safety measures in place, call light left at bed side and will continue with care.
[2019-08-31 20:00] VITALS: BP 121/61
[2019-08-31] MEDS: MONTELUKAST SODIUM 10 MG TABLET PO SCH (20:32)
[2019-08-31] MEDS: ZOLPIDEM 5 MG TABLET PO PRN (20:44)
--- NOTE | 2019-08-31 20:45 | NUR ---
Received patient sleeping in bed. AxOx 3, forgetful, Citizen Of [place] speaking able to make needs known. No signs and symptoms of distress or SOB noted. On room air Saturating O2@96%. Denies any pain/discomforts at this time. No s/s of hypo/hyperglycemia noted. Accucheck: BS was 157, gave 2 units of insulin. Monitor for /s of hypo/hyperglycemia. All needs attended, kept comfortable. Assisted patient with the bedpan. Patient requested sleeping medication, administered Ambien PRN as per patient request, will monitor for effectiveness. Call light and all personal items within patient reach. Safety measures and fall prevention maintained. Continue care as planned.
[2019-09-01 04:06] VITALS: BP 121/61
[2019-09-01 05:59] LABS: BASOPHILS % (AUTO) 0.4 % (0.0-2.0); EOSINOPHILS # (AUTO) 0.1 K/uL (0.0-0.7); EOSINOPHILS % (AUTO) 0.8 % (0.0-7.0); HEMATOCRIT 35.3 % (31.2-41.9); LYMPHOCYTES # (AUTO) 2.1 K/uL (20.0-40.0); LYMPHOCYTES % (AUTO) 23.8 % (20.5-51.5); MEAN CORPUSCULAR HEMOGLOBIN 28.2 uug (24.7-32.8); MEAN CORPUSCULAR HGB CONC 34 g/dL (32.3-35.6); MONOCYTES % (AUTO) 11.2 % (0.0-11.0); NEUTROPHILS # (AUTO) 5.5 K/uL (1.8-8.9); NEUTROPHILS % (AUTO) 63.8 % (38.5-71.5); PLATELET COUNT (AUTO) 456 K/uL (179-408); RED BLOOD CELL COUNT(AUTO) 4.25 MIL/uL (3.63-4.92); WHITE BLOOD COUNT (AUTO) 8.7 K/uL (3.8-11.8)
[2019-09-01 06:14] LABS: BILIRUBIN,TOTAL 0.3 mg/dL (0.2-1.0); CREATININE 1.1 mg/dL (0.6-1.3); PHOSPHOROUS 3.5 mg/dL (2.5-4.9); POTASSIUM 4.4 mmol/L (3.5-5.1); TOTAL PROTEIN, SERUM 5.6 g/dL (6.4-8.2)
[2019-09-01] MEDS: BLOOD SUGAR DIAGNOSTIC 1 EACH STRIP VI SCH ×4 (06:21→20:19)
--- NOTE | 2019-09-01 06:40 | NUR ---
Slept well throughout the night, Marizolien was effective. No significant events to report. All needs attended to. Safety measures in place. Continue plan of care, will endorse next shift accordingly.
[2019-09-01] MEDS: METOCLOPRAMIDE HCL 10 MG TABLET PO SCH ×3 (08:57→17:24)
[2019-09-01] MEDS: predniSONE 10 MG TABLET PO SCH (08:57)
[2019-09-01] MEDS: CALCIUM CARB/VITAMIN D 500MG-200UNITS TABLET PO SCH ×2 (08:57→17:24)
[2019-09-01] MEDS: VENLAFAXINE XR 75 MG TAB.ER.24H PO SCH (08:57)
[2019-09-01] MEDS: ERGOCALCIFEROL 50,000 UNIT CAPSULE PO SCH (08:58)
[2019-09-01] MEDS: AMLODIPINE 10 MG TABLET PO SCH (08:58)
[2019-09-01] MEDS: CLOPIDOGREL 75 MG TABLET PO SCH (08:58)
[2019-09-01] MEDS: hydrALAZINE HCL 50 MG TABLET PO SCH ×3 (08:59→17:24)
[2019-09-01] MEDS: PANTOPRAZOLE SODIUM 40 MG TABLET.DR PO SCH ×2 (08:59→17:24)
[2019-09-01] MEDS: GLUCERNA SHAKE VANILLA 237 ML CAN PO SCH (09:00)
[2019-09-01] MEDS: FLUTICASONE/VILANTEROL 1 EACH BLST.W.DEV INH SCH (09:00)
[2019-09-01] MEDS: ENOXAPARIN SODIUM 40 MG/0.4 ML DISP.SYRIN SQ SCH (09:01)
--- NOTE | 2019-09-01 14:20 | NUR ---
INTERDISCIPLINARY TEAM CONFERENCE
--- NOTE | 2019-09-01 14:24 | NUR ---
Received patient awake in bed. not in distress. no complaint of pain/discomfort. Patient continue on chemical prophylaxis lovenox injection. no bleeding noted. Patient continue blood sugar monitoring with sliding scale protocol. Patient participates well with therapy. Patient BRP to the bathroom. one person assist, tolerated well. Patient continue fall risk precaution maintained. will continue monitor.
[2019-09-01 16:00] VITALS: BP 125/48
[2019-09-01] MEDS: INSULIN REGULAR, HUMAN 300 UNIT/3 ML VIAL SQ PRN ×2 (17:03→20:22)
--- NOTE | 2019-09-01 18:01 | NUR ---
Patient sodium 127 low result. MD Jameson aware.
[2019-09-01] MEDS: MONTELUKAST SODIUM 10 MG TABLET PO SCH (20:13)
[2019-09-01] MEDS: ATORVASTATIN 10 MG TABLET PO SCH (20:14)
[2019-09-01 20:21] VITALS: BP 113/53
[2019-09-01] MEDS ORDERED: ATORVASTATIN 10 MG TABLET PO SCH (21:00)
[2019-09-02] MEDS: ZOLPIDEM 5 MG TABLET PO PRN (00:31)
--- NOTE | 2019-09-02 05:00 | NUR ---
Patient slept throughout night with no complaints of pain or discomfort verbalized or noted/observed by this nurse. All prescribed medications provided as ordered and tolerated well, with no adverse side effects verbalized by patient or noted/observed by this nurse. Increased blood sugar was addressed with prescribed insulin. All safety, fall, and allergy precaution measures remain in place. Call light and personal items remain within reach.
[2019-09-02 06:00] VITALS: BP 148/62
[2019-09-02] MEDS: BLOOD SUGAR DIAGNOSTIC 1 EACH STRIP VI SCH ×4 (06:30→21:00)
[2019-09-02 08:00] VITALS: BP 155/72
[2019-09-02] MEDS: predniSONE 10 MG TABLET PO SCH (08:00)
[2019-09-02] MEDS: hydrALAZINE HCL 50 MG TABLET PO SCH ×3 (08:00→16:32)
[2019-09-02] MEDS: AMLODIPINE 10 MG TABLET PO SCH (08:00)
[2019-09-02] MEDS: CALCIUM CARB/VITAMIN D 500MG-200UNITS TABLET PO SCH ×2 (08:00→16:03)
[2019-09-02] MEDS: PANTOPRAZOLE SODIUM 40 MG TABLET.DR PO SCH ×2 (08:00→16:03)
[2019-09-02] MEDS: METOCLOPRAMIDE HCL 10 MG TABLET PO SCH ×3 (08:00→16:03)
[2019-09-02] MEDS: CLOPIDOGREL 75 MG TABLET PO SCH (08:00)
[2019-09-02] MEDS: VENLAFAXINE XR 75 MG TAB.ER.24H PO SCH (08:00)
[2019-09-02] MEDS: ENOXAPARIN SODIUM 40 MG/0.4 ML DISP.SYRIN SQ SCH (08:01)
[2019-09-02] MEDS: GLUCERNA SHAKE VANILLA 237 ML CAN PO SCH (08:01)
[2019-09-02] MEDS: FLUTICASONE/VILANTEROL 1 EACH BLST.W.DEV INH SCH (08:01)
[2019-09-02 16:02] VITALS: BP 118/55
[2019-09-02] MEDS: INSULIN REGULAR, HUMAN 300 UNIT/3 ML VIAL SQ PRN ×2 (16:04→21:04)
[2019-09-02 20:21] VITALS: BP 118/48
[2019-09-02] MEDS: MONTELUKAST SODIUM 10 MG TABLET PO SCH (20:53)
[2019-09-02] MEDS: ATORVASTATIN 10 MG TABLET PO SCH (20:53)
--- NOTE | 2019-09-03 03:04 | NUR ---
Received Patient in bed. AAO x3. No acute distress or SOB was noted. On room air. Vietnamese speaking. Able to make needs known. No complain of pain. Accucheck done, BS:155, covered by 2 units insulin based on insulin sliding scale. All due medication given as ordered and well tolerated. Safety measures maintained, fall prevention observed. Skin assessed. All needs attended promptly. Bed in locked and low position, side rails up x2 for safety, bed alarm on. Call light and frequently using items within reach. Continue to monitor and will endorse to the oncoming nurse accordingly.
[2019-09-03 05:26] VITALS: BP 156/63
[2019-09-03] MEDS: BLOOD SUGAR DIAGNOSTIC 1 EACH STRIP VI SCH ×4 (06:32→21:14)
[2019-09-03 06:50] LABS: CREATININE 0.9 mg/dL (0.6-1.3); PHOSPHOROUS 3.2 mg/dL (2.5-4.9); POTASSIUM 4.5 mmol/L (3.5-5.1)
[2019-09-03 07:26] LABS: THYROID STIMULATING HORMONE 1.848 mIU/mL (0.358-3.740)
--- NOTE | 2019-09-03 07:45 | NUR ---
Received pt in bed asleep but arousable to name and touch, AOx2, mostly tajik speaking but able to make needs known. On RA with no SOB or distress noted at this time. Denied any pain at this time. Able to ambulate to bathroom with walker and standby assist. Bed locked in lowest position with siderails 2x up, bed alarm on. Call light and belongings within reach. Will monitor
[2019-09-03 08:00] VITALS: BP 150/69
[2019-09-03] MEDS: CLOPIDOGREL 75 MG TABLET PO SCH (08:18)
[2019-09-03] MEDS: CALCIUM CARB/VITAMIN D 500MG-200UNITS TABLET PO SCH ×2 (08:18→17:09)
[2019-09-03] MEDS: AMLODIPINE 10 MG TABLET PO SCH (08:19)
[2019-09-03] MEDS: predniSONE 10 MG TABLET PO SCH (08:19)
[2019-09-03] MEDS: PANTOPRAZOLE SODIUM 40 MG TABLET.DR PO SCH ×2 (08:19→17:09)
[2019-09-03] MEDS: VENLAFAXINE XR 75 MG TAB.ER.24H PO SCH (08:19)
[2019-09-03] MEDS: METOCLOPRAMIDE HCL 10 MG TABLET PO SCH ×3 (08:19→17:09)
[2019-09-03] MEDS: hydrALAZINE HCL 50 MG TABLET PO SCH ×4 (08:19→17:09)
[2019-09-03] MEDS: ENOXAPARIN SODIUM 40 MG/0.4 ML DISP.SYRIN SQ SCH (08:20)
[2019-09-03] MEDS: GLUCERNA SHAKE VANILLA 237 ML CAN PO SCH (08:22)
[2019-09-03] MEDS: FLUTICASONE/VILANTEROL 1 EACH BLST.W.DEV INH SCH (08:22)
[2019-09-03] MEDS: INSULIN REGULAR, HUMAN 300 UNIT/3 ML VIAL SQ PRN ×3 (11:35→21:17)
[2019-09-03 16:14] VITALS: BP 119/54
[2019-09-03 19:58] VITALS: BP 105/54
[2019-09-03] MEDS: MONTELUKAST SODIUM 10 MG TABLET PO SCH (21:03)
[2019-09-03] MEDS: ATORVASTATIN 10 MG TABLET PO SCH (21:03)
[2019-09-04 05:39] VITALS: BP 156/72
--- NOTE | 2019-09-04 06:03 | NUR ---
Received patient lying in bed sleeping, easily arouses to name.. AAO x3, Barbadian speaking able to make needs known. Denies any pain or discomfort. No signs and symptoms of distress, No signs of SOB, saturating 98% on room air. no s/s of hypo/hyperglycemia. Accucheck done, BS:150, covered by 2 units insulin based on insulin sliding scale. All due medication given as ordered and well tolerated. Patient slept through the night, no significant events to report. Safety measures maintained, fall prevention observed. Skin assessed. All needs attended promptly. Bed in locked and low position, side rails up x2 for safety, bed alarm on. Call light and frequently using items within reach. Continue to monitor and will endorse to the oncoming nurse accordingly.
[2019-09-04 06:05] LABS: EOSINOPHILS % (AUTO) 0.4 % (0.0-7.0); HEMATOCRIT 35.3 % (31.2-41.9); HEMOGLOBIN 12.1 g/dL (10.9-14.3); LYMPHOCYTES # (AUTO) 2.3 K/uL (20.0-40.0); LYMPHOCYTES % (AUTO) 23.9 % (20.5-51.5); MEAN CORPUSCULAR HEMOGLOBIN 28.1 uug (24.7-32.8); MEAN CORPUSCULAR HGB CONC 34 g/dL (32.3-35.6); MEAN CORPUSCULAR VOLUME 81.9 fL (75.5-95.3); MONOCYTES # (AUTO) 1.1 K/uL (2.0-10.0); NEUTROPHILS # (AUTO) 6.3 K/uL (1.8-8.9); NEUTROPHILS % (AUTO) 64.7 % (38.5-71.5); PLATELET COUNT (AUTO) 426 K/uL (179-408); RED BLOOD CELL COUNT(AUTO) 4.32 MIL/uL (3.63-4.92); WHITE BLOOD COUNT (AUTO) 9.7 K/uL (3.8-11.8)
[2019-09-04 06:30] LABS: BILIRUBIN,TOTAL 0.3 mg/dL (0.2-1.0); CREATININE 0.9 mg/dL (0.6-1.3); PHOSPHOROUS 3.5 mg/dL (2.5-4.9); TOTAL PROTEIN, SERUM 5.7 g/dL (6.4-8.2)
[2019-09-04] MEDS: BLOOD SUGAR DIAGNOSTIC 1 EACH STRIP VI SCH ×4 (07:15→21:39)
[2019-09-04 07:30] VITALS: BP 137/56
[2019-09-04] MEDS: VENLAFAXINE XR 75 MG TAB.ER.24H PO SCH (09:09)
[2019-09-04] MEDS: CALCIUM CARB/VITAMIN D 500MG-200UNITS TABLET PO SCH ×2 (09:09→17:03)
[2019-09-04] MEDS: PANTOPRAZOLE SODIUM 40 MG TABLET.DR PO SCH ×2 (09:09→17:03)
[2019-09-04] MEDS: predniSONE 10 MG TABLET PO SCH (09:09)
[2019-09-04] MEDS: CLOPIDOGREL 75 MG TABLET PO SCH (09:09)
[2019-09-04] MEDS: METOCLOPRAMIDE HCL 10 MG TABLET PO SCH ×3 (09:09→17:03)
[2019-09-04] MEDS: FLUTICASONE/VILANTEROL 1 EACH BLST.W.DEV INH SCH (09:09)
[2019-09-04] MEDS: GLUCERNA SHAKE VANILLA 237 ML CAN PO SCH (09:10)
[2019-09-04] MEDS: AMLODIPINE 10 MG TABLET PO SCH (09:10)
[2019-09-04] MEDS: hydrALAZINE HCL 50 MG TABLET PO SCH ×3 (09:10→17:00)
[2019-09-04] MEDS: ENOXAPARIN SODIUM 40 MG/0.4 ML DISP.SYRIN SQ SCH (09:11)
[2019-09-04] MEDS: INSULIN REGULAR, HUMAN 300 UNIT/3 ML VIAL SQ PRN ×3 (11:52→21:50)
[2019-09-04 16:00] VITALS: BP 111/56
--- NOTE | 2019-09-04 18:31 | NUR ---
Patient remains alert, oriented x 3, not in any form of distress, on room air. She denies any pain or discomfort at this time. Patient participated with PT/OT and tolerated well. Assisted with patient's needs promptly and met. Patient compliant with due medications and tolerated well. Call light and frequently used items placed within patient's reach. Safety measures maintained.
[2019-09-04 19:50] VITALS: BP 111/39
--- NOTE | 2019-09-04 20:45 | NUR ---
Received patient lying in bed comfortably,alert and french speaking, no s/s of distress noted.Call light within reach,Bed locked in lowest position with siderails 2x up, bed alarm on.Will continue to monitor.
[2019-09-04] MEDS: ATORVASTATIN 10 MG TABLET PO SCH (21:23)
[2019-09-04] MEDS: MONTELUKAST SODIUM 10 MG TABLET PO SCH (21:23)
[2019-09-05 04:50] VITALS: BP 148/61
[2019-09-05] MEDS: BLOOD SUGAR DIAGNOSTIC 1 EACH STRIP VI SCH ×4 (06:36→20:05)
[2019-09-05 07:30] VITALS: BP 142/60
[2019-09-05] MEDS: PANTOPRAZOLE SODIUM 40 MG TABLET.DR PO SCH ×2 (08:11→16:52)
[2019-09-05] MEDS: VENLAFAXINE XR 75 MG TAB.ER.24H PO SCH (08:11)
[2019-09-05] MEDS: predniSONE 10 MG TABLET PO SCH (08:11)
[2019-09-05] MEDS: CLOPIDOGREL 75 MG TABLET PO SCH (08:11)
[2019-09-05] MEDS: FLUTICASONE/VILANTEROL 1 EACH BLST.W.DEV INH SCH (08:11)
[2019-09-05] MEDS: CALCIUM CARB/VITAMIN D 500MG-200UNITS TABLET PO SCH ×2 (08:11→16:52)
[2019-09-05] MEDS: METOCLOPRAMIDE HCL 10 MG TABLET PO SCH ×3 (08:11→16:52)
[2019-09-05] MEDS: hydrALAZINE HCL 50 MG TABLET PO SCH ×3 (08:12→16:53)
[2019-09-05] MEDS: GLUCERNA SHAKE VANILLA 237 ML CAN PO SCH (08:13)
[2019-09-05] MEDS: AMLODIPINE 10 MG TABLET PO SCH (08:19)
[2019-09-05] MEDS: ENOXAPARIN SODIUM 40 MG/0.4 ML DISP.SYRIN SQ SCH (08:26)
[2019-09-05] MEDS: INSULIN REGULAR, HUMAN 300 UNIT/3 ML VIAL SQ PRN ×3 (11:41→20:08)
--- NOTE | 2019-09-05 14:45 | NUR ---
Dr. Izquierdo in the unit, informed MD regarding episodes of BP medication held due to decreased SBP low 110's and diastolic BP 40's. MD said OK to hold and continue to monitor.
[2019-09-05 16:00] VITALS: BP 100/52
--- NOTE | 2019-09-05 18:45 | NUR ---
Patient remains alert, oriented x 3, not in any form of distress, on room air. No complain of any pain or discomfort. Participated with therapeutic exercises. Assisted with her needs. Call light and frequently used items placed within patient's reach. Maintained on fluid restriction of 1000ml as ordered. Will endorse accordingly.
[2019-09-05 20:00] VITALS: BP 103/61
[2019-09-05] MEDS: MONTELUKAST SODIUM 10 MG TABLET PO SCH (20:02)
[2019-09-05] MEDS: ATORVASTATIN 10 MG TABLET PO SCH (20:02)
--- NOTE | 2019-09-05 20:12 | NUR ---
Received patient lying in bed sleeping, easily arouses to name. AAO x3, Occitan speaking able to make needs known. Denies any pain or discomfort. No signs and symptoms of distress, No signs of SOB, saturating 97% on room air. no s/s of hypo/hyperglycemia. Accucheck done, BS:211, covered by 4 units insulin based on insulin sliding scale. All due medication given as ordered and well tolerated. Safety measures maintained, Bed in locked and low position, side rails up x2 for safety, bed alarm on. Call light and frequently used items within reach. Continue to monitor through the night
[2019-09-06 04:00] VITALS: BP 124/60
--- NOTE | 2019-09-06 05:54 | NUR ---
Slept well throughout the night, No significant events to report. All needs attended to. Safety measures in place. Continue plan of care, will endorse next shift accordingly.
[2019-09-06] MEDS: BLOOD SUGAR DIAGNOSTIC 1 EACH STRIP VI SCH ×4 (06:45→20:07)
[2019-09-06 08:30] VITALS: BP 157/59
[2019-09-06] MEDS: hydrALAZINE HCL 50 MG TABLET PO SCH ×3 (09:00→16:46)
[2019-09-06] MEDS: AMLODIPINE 10 MG TABLET PO SCH (09:00)
[2019-09-06] MEDS: predniSONE 10 MG TABLET PO SCH (09:42)
[2019-09-06] MEDS: CALCIUM CARB/VITAMIN D 500MG-200UNITS TABLET PO SCH ×2 (09:42→16:46)
[2019-09-06] MEDS: METOCLOPRAMIDE HCL 10 MG TABLET PO SCH ×3 (09:42→16:46)
[2019-09-06] MEDS: PANTOPRAZOLE SODIUM 40 MG TABLET.DR PO SCH ×2 (09:42→16:46)
[2019-09-06] MEDS: VENLAFAXINE XR 75 MG TAB.ER.24H PO SCH (09:42)
[2019-09-06] MEDS: CLOPIDOGREL 75 MG TABLET PO SCH (09:43)
--- NOTE | 2019-09-06 09:45 | NUR ---
Patient is AAO x 3, able to express needs. NO acute distress noted. Vital signs stable for patient. denies any pain at this time. Due meds administered as ordered and scheduled and tolerated well. Held morning BP medications due to low BP. Patient on fluid restriction of 1000cc. On continuous PT/OT therapy. Safety measures in place and will continue with care.
[2019-09-06] MEDS: ENOXAPARIN SODIUM 40 MG/0.4 ML DISP.SYRIN SQ SCH (09:48)
[2019-09-06] MEDS: GLUCERNA SHAKE VANILLA 237 ML CAN PO SCH (09:52)
[2019-09-06] MEDS: FLUTICASONE/VILANTEROL 1 EACH BLST.W.DEV INH SCH (09:54)
[2019-09-06 16:03] VITALS: BP 112/55
[2019-09-06] MEDS: INSULIN REGULAR, HUMAN 300 UNIT/3 ML VIAL SQ PRN ×2 (17:21→20:09)
--- NOTE | 2019-09-06 17:46 | NUR ---
Patient in stable condition, tolerating treatment well. on PT/OT therapy as ordered. No c/o pain. Patient seen by Dr. Pink, with an order to D/C Hydralazine 50mg PO TID d/t patient with low B/P. All other needs attended and met. NO SOB or any distress noted throughout shift. Skin kept clean and dry made comfortable and will continue with care.
--- NOTE | 2019-09-06 18:08 | NUR ---
Patient seen by Dr. Rader*.
[2019-09-06 19:59] VITALS: BP 114/53
[2019-09-06] MEDS: MONTELUKAST SODIUM 10 MG TABLET PO SCH (20:06)
[2019-09-06] MEDS: ATORVASTATIN 10 MG TABLET PO SCH (20:07)
--- NOTE | 2019-09-06 20:48 | NUR ---
Received pt resting in bed and watching tv. AAO x3. Japanese speaking, able to make needs known. No acute distress noted. Denies pain/ discomfort. Accuchek 220, insulin coverage given as per sliding scale. Due meds given as ordered. Safety measures maintained. Call light and personal items within reach. Will continue to monitor.
[2019-09-06] MEDS: ZOLPIDEM 5 MG TABLET PO PRN (21:02)
[2019-09-07 04:53] VITALS: BP 121/67
[2019-09-07] MEDS: BLOOD SUGAR DIAGNOSTIC 1 EACH STRIP VI SCH ×4 (06:31→20:43)
[2019-09-07 06:40] LABS: BILIRUBIN,TOTAL 0.4 mg/dL (0.2-1.0); CREATININE 0.9 mg/dL (0.6-1.3); TOTAL PROTEIN, SERUM 5.7 g/dL (6.4-8.2)
[2019-09-07 08:00] VITALS: BP 159/58
[2019-09-07 09:00] VITALS: BP 148/60
[2019-09-07] MEDS: VENLAFAXINE XR 75 MG TAB.ER.24H PO SCH (09:04)
[2019-09-07] MEDS: PANTOPRAZOLE SODIUM 40 MG TABLET.DR PO SCH ×2 (09:04→17:30)
[2019-09-07] MEDS: CLOPIDOGREL 75 MG TABLET PO SCH (09:04)
[2019-09-07] MEDS: METOCLOPRAMIDE HCL 10 MG TABLET PO SCH ×3 (09:04→17:30)
[2019-09-07] MEDS: predniSONE 10 MG TABLET PO SCH (09:04)
[2019-09-07] MEDS: AMLODIPINE 10 MG TABLET PO SCH (09:05)
[2019-09-07] MEDS: GLUCERNA SHAKE VANILLA 237 ML CAN PO SCH (09:05)
[2019-09-07] MEDS: FLUTICASONE/VILANTEROL 1 EACH BLST.W.DEV INH SCH (09:05)
[2019-09-07] MEDS: CALCIUM CARB/VITAMIN D 500MG-200UNITS TABLET PO SCH ×2 (09:05→17:30)
[2019-09-07] MEDS: INSULIN REGULAR, HUMAN 300 UNIT/3 ML VIAL SQ PRN ×4 (09:06→20:45)
[2019-09-07] MEDS: ENOXAPARIN SODIUM 40 MG/0.4 ML DISP.SYRIN SQ SCH (09:14)
[2019-09-07 15:51] VITALS: BP 118/48
--- NOTE | 2019-09-07 18:29 | NUR ---
EOS Note: No significant acute changes during this shift. Pt. remain A/Ox3, verbally responsive and able to make her needs known. All due medications given as ordered and tolerated well. No s/sx of hypo/hyperglycemia. Pt. tolerating diet well. No s/sx of bleeding, on Lovenox. Pt. participated with PT and tolerated tx well. Pt. seen by Dr. Rader with order for 800 cc fluid restrictions. No new skin condition noted, remain intact. All pt. needs attended and met. Safety measures in place. Call light and all frequently used items within pt. reach. Will endorse to oncoming shift accordingly.
[2019-09-07 20:07] VITALS: BP 119/56
[2019-09-07] MEDS: ATORVASTATIN 10 MG TABLET PO SCH (20:42)
[2019-09-07] MEDS: MONTELUKAST SODIUM 10 MG TABLET PO SCH (20:43)
[2019-09-08 04:00] VITALS: BP 145/57
[2019-09-08] MEDS: BLOOD SUGAR DIAGNOSTIC 1 EACH STRIP VI SCH ×4 (05:52→20:32)
[2019-09-08 06:31] LABS: BILIRUBIN,TOTAL 0.3 mg/dL (0.2-1.0); CREATININE 0.9 mg/dL (0.6-1.3); POTASSIUM 4.6 mmol/L (3.5-5.1); TOTAL PROTEIN, SERUM 5.7 g/dL (6.4-8.2)
[2019-09-08 07:39] VITALS: BP 165/67
[2019-09-08] MEDS: CLOPIDOGREL 75 MG TABLET PO SCH (08:23)
[2019-09-08] MEDS: CALCIUM CARB/VITAMIN D 500MG-200UNITS TABLET PO SCH ×2 (08:23→16:52)
[2019-09-08] MEDS: VENLAFAXINE XR 75 MG TAB.ER.24H PO SCH (08:23)
[2019-09-08] MEDS: predniSONE 10 MG TABLET PO SCH (08:23)
[2019-09-08] MEDS: AMLODIPINE 10 MG TABLET PO SCH (08:24)
[2019-09-08] MEDS: PANTOPRAZOLE SODIUM 40 MG TABLET.DR PO SCH ×2 (08:24→16:52)
[2019-09-08] MEDS: METOCLOPRAMIDE HCL 10 MG TABLET PO SCH ×3 (08:25→16:52)
[2019-09-08] MEDS: ENOXAPARIN SODIUM 40 MG/0.4 ML DISP.SYRIN SQ SCH (08:30)
[2019-09-08] MEDS: ERGOCALCIFEROL 50,000 UNIT CAPSULE PO SCH (08:30)
[2019-09-08] MEDS: FLUTICASONE/VILANTEROL 1 EACH BLST.W.DEV INH SCH (08:30)
[2019-09-08] MEDS: GLUCERNA SHAKE VANILLA 237 ML CAN PO SCH (08:31)
[2019-09-08] MEDS ORDERED: predniSONE 10 MG TABLET PO SCH (09:00)
[2019-09-08] MEDS: INSULIN REGULAR, HUMAN 300 UNIT/3 ML VIAL SQ PRN ×3 (11:21→20:35)
--- NOTE | 2019-09-08 13:09 | NUR ---
INTERDISCIPLINARY TEAM CONFERENCE
[2019-09-08 15:19] VITALS: BP 117/57
--- NOTE | 2019-09-08 15:33 | NUR ---
patient is alert, oriented x3, croatian speaking, no distress noted, supervised with adls, tolerates PT, OT services well, blood sugar is controlled with sliding scale, no signs and symptoms of hypo/hyperglycemia noted, all needs attended, call light with in reach, needs attended timely
--- NOTE | 2019-09-08 19:34 | NUR ---
Sleeping comfortably during initial rounds. No s/s of respiratory distress. Safety measure and afll prevention maintained. Continue care as planned.
[2019-09-08 20:11] VITALS: BP 109/45
[2019-09-08] MEDS: ATORVASTATIN 10 MG TABLET PO SCH (20:28)
[2019-09-08] MEDS: MONTELUKAST SODIUM 10 MG TABLET PO SCH (20:28)
[2019-09-09 05:22] VITALS: BP 143/54
--- NOTE | 2019-09-09 05:26 | NUR ---
Shift End Report: Slept well. No complaint presented all night. Denied any s/s of hypo/hyperglycemia. All needs attended and met. No fall/injury. No significant event reported. Continue current rehab plan of care. VS stable.
[2019-09-09] MEDS: BLOOD SUGAR DIAGNOSTIC 1 EACH STRIP VI SCH ×4 (07:46→20:18)
[2019-09-09 08:00] VITALS: BP_SYST 136; BP_DIAS 52; BP_DIAS 55
[2019-09-09] MEDS: CLOPIDOGREL 75 MG TABLET PO SCH (08:12)
[2019-09-09] MEDS: predniSONE 10 MG TABLET PO SCH (08:14)
[2019-09-09] MEDS: METOCLOPRAMIDE HCL 10 MG TABLET PO SCH ×3 (08:14→17:08)
[2019-09-09] MEDS: PANTOPRAZOLE SODIUM 40 MG TABLET.DR PO SCH ×2 (08:14→17:08)
[2019-09-09] MEDS: AMLODIPINE 10 MG TABLET PO SCH (08:14)
[2019-09-09] MEDS: CALCIUM CARB/VITAMIN D 500MG-200UNITS TABLET PO SCH ×2 (08:14→17:09)
[2019-09-09] MEDS: FLUTICASONE/VILANTEROL 1 EACH BLST.W.DEV INH SCH (08:15)
[2019-09-09] MEDS: GLUCERNA SHAKE VANILLA 237 ML CAN PO SCH (08:15)
[2019-09-09] MEDS: ENOXAPARIN SODIUM 40 MG/0.4 ML DISP.SYRIN SQ SCH (08:17)
[2019-09-09] MEDS: INSULIN REGULAR, HUMAN 300 UNIT/3 ML VIAL SQ PRN ×3 (12:15→20:15)
[2019-09-09] MEDS ORDERED: IV NORMAL SALINE 500 ML IV ONE (12:45)
[2019-09-09 13:45] LABS: BASOPHILS % (AUTO) 0.1 % (0.0-2.0); EOSINOPHILS % (AUTO) 0.1 % (0.0-7.0); HEMATOCRIT 38.7 % (31.2-41.9); HEMOGLOBIN 12.6 g/dL (10.9-14.3); LYMPHOCYTES # (AUTO) 0.6 K/uL (20.0-40.0); LYMPHOCYTES % (AUTO) 4.9 % (20.5-51.5); MEAN CORPUSCULAR HEMOGLOBIN 27.2 uug (24.7-32.8); MEAN CORPUSCULAR HGB CONC 33 g/dL (32.3-35.6); MEAN CORPUSCULAR VOLUME 83.4 fL (75.5-95.3); MONOCYTES # (AUTO) 0.4 K/uL (2.0-10.0); MONOCYTES % (AUTO) 3.1 % (0.0-11.0); NEUTROPHILS # (AUTO) 11.9 K/uL (1.8-8.9); NEUTROPHILS % (AUTO) 91.8 % (38.5-71.5); PLATELET COUNT (AUTO) 375 K/uL (179-408); RED BLOOD CELL COUNT(AUTO) 4.64 MIL/uL (3.63-4.92)
[2019-09-09 14:03] LABS: BILIRUBIN,TOTAL 0.4 mg/dL (0.2-1.0); CREATININE 0.9 mg/dL (0.6-1.3); MAGNESIUM 1.9 mg/dL (1.8-2.4); POTASSIUM 4.2 mmol/L (3.5-5.1); TOTAL PROTEIN, SERUM 6.6 g/dL (6.4-8.2)
--- NOTE | 2019-09-09 15:35 | NUR ---
patient is alert ,oriented x3, no sob, resp even nonlabored,skin warm and dry to touch, no distress noted, today lab showed WBCs 13.0, dr Floyd is aware, okay to discharge home, however patient is asymptomatic.
--- NOTE | 2019-09-09 15:37 | NUR ---
no hematuria noted, no odor noted in urine, patient tolerated meals well, no skin issues noted.
[2019-09-09 16:18] VITALS: BP 116/55
--- NOTE | 2019-09-09 16:28 | NUR ---
holding discharge per dr rojo and per dr flores regarding low sodium. daughter mimi amezcua sent message, waiting for call back
--- NOTE | 2019-09-09 16:29 | NUR ---
IV gauze 24 started on right hand and bolus fluids given as ordered.
[2019-09-09] MEDS: MONTELUKAST SODIUM 10 MG TABLET PO SCH (20:12)
[2019-09-09] MEDS: ATORVASTATIN 10 MG TABLET PO SCH (20:12)
[2019-09-09] MEDS: ZOLPIDEM 5 MG TABLET PO PRN (20:12)
[2019-09-09 20:14] VITALS: BP 121/51
[2019-09-10 05:37] VITALS: BP 135/60
[2019-09-10] MEDS: BLOOD SUGAR DIAGNOSTIC 1 EACH STRIP VI SCH ×3 (06:06→17:24)
--- NOTE | 2019-09-10 06:27 | NUR ---
Pt rested well in between care; accucheck as charted; assisted with hygiene needs; continue to monitor; continue plan of care,
[2019-09-10 07:36] LABS: CREATININE 0.9 mg/dL (0.6-1.3); POTASSIUM 3.9 mmol/L (3.5-5.1)
[2019-09-10 08:00] VITALS: BP 109/41
[2019-09-10] MEDS: predniSONE 10 MG TABLET PO SCH (08:18)
[2019-09-10] MEDS: CALCIUM CARB/VITAMIN D 500MG-200UNITS TABLET PO SCH ×2 (08:18→17:25)
[2019-09-10] MEDS: CLOPIDOGREL 75 MG TABLET PO SCH (08:18)
[2019-09-10] MEDS: METOCLOPRAMIDE HCL 10 MG TABLET PO SCH ×3 (08:18→17:25)
[2019-09-10] MEDS: PANTOPRAZOLE SODIUM 40 MG TABLET.DR PO SCH ×2 (08:18→17:25)
[2019-09-10] MEDS: GLUCERNA SHAKE VANILLA 237 ML CAN PO SCH (08:19)
[2019-09-10] MEDS: ENOXAPARIN SODIUM 40 MG/0.4 ML DISP.SYRIN SQ SCH (08:26)
[2019-09-10] MEDS: AMLODIPINE 10 MG TABLET PO SCH (08:27)
--- NOTE | 2019-09-10 10:40 | NUR ---
Patient is AAO x 3. NO acute distress or any SOB noted. Vital signs stable for patient. NO c/o pain at this time. Due morning meds administered as ordered and scheduled. Tolerated well. Patient on PT/OT therapy. Skin intact and dry. Needs attended and met. Call light at bed side and will continue with care.
--- NOTE | 2019-09-10 12:00 | NUR ---
Patient seen by Dr. Aguilar and Dr. Gresham; with an order to be discharged home.
--- NOTE | 2019-09-10 14:00 | NUR ---
Spoke with Katiana (patient's daughter) and informed her patient will be discharged today. Daughter stated she will be here at 6:30 to patient.
[2019-09-10] MEDS: FLUTICASONE/VILANTEROL 1 EACH BLST.W.DEV INH SCH (14:24)
[2019-09-10 16:04] VITALS: BP 127/68
[2019-09-10] MEDS: INSULIN REGULAR, HUMAN 300 UNIT/3 ML VIAL SQ PRN (17:27)
--- NOTE | 2019-09-10 19:33 | NUR ---
Discharge notes: All discharge teaching administered to patient and daughter. Prescription and HH paper works discussed and given to daughter. All belongings returned and given to family. Family stated understands discharge teaching. Also educated family on COVID-19 precautions, family verbalized understanding and thanked for the care provided. Patient left at 19:10pm.
== END 2019-09-10 19:10 | disposition home health service (06) | DRG 190 ==
PROVIDERS: ADMIT Physical Medicine & Rehabilitation Pain Medicine; ATTEND Physical Medicine & Rehabilitation Pain Medicine
DX: J44.1 Chronic obstructive pulmonary disease with (acute) exacerbation (principal); E43 Unspecified severe protein-calorie malnutrition; J96.90 Respiratory failure, unspecified, unspecified whether with hypoxia or hypercapnia; E22.2 Syndrome of inappropriate secretion of antidiuretic hormone; I50.32 Chronic diastolic (congestive) heart failure; E11.9 Type 2 diabetes mellitus without complications; E78.5 Hyperlipidemia, unspecified; F32.9 Major depressive disorder, single episode, unspecified; F41.9 Anxiety disorder, unspecified; J98.4 Other disorders of lung; I11.0 Hypertensive heart disease with heart failure; J84.10 Pulmonary fibrosis, unspecified; K22.70 Barrett's esophagus without dysplasia; K29.70 Gastritis, unspecified, without bleeding; R53.81 Other malaise; M62.81 Muscle weakness (generalized); Z79.4 Long term (current) use of insulin; R42 Dizziness and giddiness; Z88.0 Allergy status to penicillin; Z91.018 Allergy to other foods
CPT/HCPCS: 36415; 83735; 84100; 84300; 84443; 84550; 85025; J1650; J1815; J7040; J7512; J8597

== ENCOUNTER 2019-11-12 19:39 | Inpatient (IN) | payer MEDICARE, OTHER ==
[~2019-11-12] VITALS: Ht 152.4 cm; Wt 568.8 kg
[~2019-11-12 19:39] MED LIST changes: +ACET-3117 PO; -ALBU1.25 NEB; +ALBU2.5V13 IH; +BLOO-668 IN; +CALC500T53 PO; -DICLOFENAC TOP; +ENOX40DI SQ; -ERGO500040; +ERGO500040 PO; +FLUT1DIS27 INH; -FLUT1DIS28 IH; +MAGN400O6 PO; +ONDA-104 IVP; -PRED1TAB PO; +PRED20TA PO; +ZOLP5TAB8 PO; -budesonide
--- NOTE | 2019-11-12 19:55 | NUR ---
at bedside for assessment
--- NOTE | 2019-11-12 20:00 | NUR ---
22g IV placed in right forearm, all blood work sent to lab
[2019-11-12 20:26] LABS: BASOPHILS % (AUTO) 0.5 % (0.0-2.0); EOSINOPHILS % (AUTO) 0.3 % (0.0-7.0); HEMATOCRIT 30.8 % (31.2-41.9); HEMOGLOBIN 10.3 g/dL (10.9-14.3); LYMPHOCYTES % (AUTO) 11.5 % (20.5-51.5); MEAN CORPUSCULAR HEMOGLOBIN 27.3 uug (24.7-32.8); MEAN CORPUSCULAR HGB CONC 33 g/dL (32.3-35.6); MEAN CORPUSCULAR VOLUME 81.9 fL (75.5-95.3); MONOCYTES % (AUTO) 11.9 % (0.0-11.0); NEUTROPHILS # (AUTO) 6.4 K/uL (1.8-8.9); NEUTROPHILS % (AUTO) 75.8 % (38.5-71.5); PLATELET COUNT (AUTO) 477 K/uL (179-408); RED BLOOD CELL COUNT(AUTO) 3.77 MIL/uL (3.63-4.92); WHITE BLOOD COUNT (AUTO) 8.4 K/uL (3.8-11.8)
[2019-11-12 20:33] LABS: POTASSIUM 4.1 mmol/L (3.5-5.1)
[2019-11-12 20:46] LABS: BILIRUBIN,DIRECT 0.1 mg/dL (0.0-0.2); BILIRUBIN,TOTAL 0.2 mg/dL (0.2-1.0)
--- NOTE | 2019-11-12 21:29 | NUR ---
covid swab sent lab at this time
[2019-11-12] MEDS ORDERED: NITROGLYCERIN OINT 1 GM PACKET TP ONE ×2 (21:45→21:46)
[2019-11-12] MEDS ORDERED: ASPIRIN 81 MG TAB.CHEW PO ONE (21:45)
[2019-11-12] MEDS ORDERED: ASPIRIN 81 MG TAB.CHEW ONE (21:45)
--- NOTE | 2019-11-12 22:13 | NUR ---
Called [facility] to page Dr. Jeevan Izquierdo.
[2019-11-12] MEDS ORDERED: diclofenac gel (22:18)
[2019-11-12] MEDS ORDERED: ALEN70TA6 PO (22:18)
[2019-11-12] MEDS ORDERED: BUDESONIDE (22:18)
[2019-11-12] MEDS ORDERED: DOCU-141 PO (22:18)
[2019-11-12] MEDS ORDERED: remeron PO (22:18)
[2019-11-12] MEDS ORDERED: FLUT1DIS28 IH (22:18)
[2019-11-12] MEDS ORDERED: ALBUTEROL SULFATE 2.5 MG/3 ML NEBU NEB ONE (22:30)
[2019-11-12] MEDS ORDERED: IPRATROPIUM BROMIDE 0.5 MG/2.5 ML NEBU NEB ONE (22:30)
[2019-11-12] MEDS ORDERED: ALBUTEROL SULFATE 2.5 MG/ 0.5 ML NEBU ONE (22:39)
[2019-11-12] MEDS ORDERED: IPRATROPIUM BROMIDE 0.5 MG/2.5 ML NEBU ONE (22:39)
[2019-11-12] MEDS ORDERED: FUROSEMIDE 40 MG/4 ML VIAL IV ONE (22:45)
[2019-11-12] MEDS ORDERED: methylPREDNISolone SOD SUCC 125 MG/2 ML VIAL IV ONE (22:45)
[2019-11-12] MEDS ORDERED: methylPREDNISolone SOD SUCC 125 MG/2 ML VIAL ONE (23:24)
[2019-11-12] MEDS ORDERED: FUROSEMIDE 40 MG/4 ML VIAL ONE (23:24)
--- NOTE | 2019-11-13 01:52 | NUR ---
Pt. admitted to tele, under care of Dr. Gresham Belongs List completed and all belongings sent with patient, no signs of distress noted
[2019-11-13 02:08] VITALS: BP 127/62
--- NOTE | 2019-11-13 02:20 | NUR ---
ADMITTED, FEMALE WITH CHIEF COMPLAINED OF CHEST PAIN, NO CHEST PAIN SINUS RHYTHM. ORIENTED TO ROOM .NO SKIN BREAKDOWN. CALLED DR. OLSON FOR ADMITTING ORDERS,
[2019-11-13 04:46] VITALS: BP 118/58
[2019-11-13] MEDS ORDERED: DEXTROSE 50% 50 ML DISP.SYRIN IV PRN (06:15)
--- NOTE | 2019-11-13 07:30 | NUR ---
Awake, alert, oriented x 3, nepali speaking. on moderate high back rest. No SOB at this time, room air
[2019-11-13] MEDS ORDERED: ALBUTEROL SULFATE 2.5 MG/3 ML NEBU NEB PRN (09:00)
[2019-11-13] MEDS: BLOOD SUGAR DIAGNOSTIC 1 EACH STRIP VI SCH ×4 (09:30→21:26)
[2019-11-13] MEDS: FLUTICASONE/VILANTEROL 1 EACH BLST.W.DEV IH SCH (09:30)
[2019-11-13] MEDS: DOCUSATE SODIUM 100 MG CAPSULE PO SCH (09:31)
[2019-11-13] MEDS: hydrALAZINE HCL 50 MG TABLET PO SCH ×3 (09:31→17:31)
[2019-11-13] MEDS: ATORVASTATIN 10 MG TABLET PO SCH (09:32)
[2019-11-13] MEDS: AMLODIPINE 10 MG TABLET PO SCH (09:32)
[2019-11-13] MEDS: CALCIUM CARB/VITAMIN D 500MG-200UNITS TABLET PO SCH ×2 (09:32→17:31)
[2019-11-13] MEDS: PANTOPRAZOLE SODIUM 40 MG TABLET.DR PO SCH (09:32)
[2019-11-13] MEDS: INSULIN REGULAR, HUMAN 300 UNIT/3 ML VIAL SQ PRN ×3 (09:34→21:33)
[2019-11-13] MEDS: METOCLOPRAMIDE HCL 10 MG TABLET PO SCH ×3 (09:36→17:31)
[2019-11-13] MEDS: CLOPIDOGREL 75 MG TABLET PO SCH (09:36)
[2019-11-13] MEDS: ALBUTEROL SULFATE 2.5 MG/ 0.5 ML NEBU IH SCH ×3 (10:24→19:30)
--- NOTE | 2019-11-13 11:05 | NUR ---
Covid 19 PCR swab test done, sent to lab
[2019-11-13 12:00] VITALS: BP 136/52
--- NOTE | 2019-11-13 15:00 | NUR ---
Transferred to room 220, pending Covid 19 PCR result
[2019-11-13 16:00] VITALS: BP 108/53
--- NOTE | 2019-11-13 17:57 | NUR ---
Eating fairly. on high back rest. No SOB noted. Afebrile
--- NOTE | 2019-11-13 19:30 | NUR ---
HHN Tx not given due to PUI protocol. No SOB noted. Will continue to monitor.
--- NOTE | 2019-11-13 20:01 | NUR ---
Received patient in bed awake and alert armenian speaking.Denies pain.No s/s of distress noted.On RA saturating at 94%.Iv site intact and patent on Right Forearm 20g.No s/s of infiltration.Due meds given.Call light and belongings with in reach.
[2019-11-13 20:17] VITALS: BP 119/52
[2019-11-13] MEDS: MONTELUKAST SODIUM 10 MG TABLET PO SCH (21:18)
[2019-11-13] MEDS: QUETIAPINE FUMARATE 25 MG TABLET PO SCH (21:18)
[2019-11-13] MEDS: MIRTAZAPINE 15 MG TABLET PO SCH (21:18)
[2019-11-14 00:31] VITALS: BP 120/58
[2019-11-14] MEDS: ALBUTEROL SULFATE 2.5 MG/ 0.5 ML NEBU IH SCH ×5 (01:30→20:11)
[2019-11-14 04:56] VITALS: BP 115/64
[2019-11-14] MEDS: BLOOD SUGAR DIAGNOSTIC 1 EACH STRIP VI SCH ×4 (06:30→20:38)
--- NOTE | 2019-11-14 07:30 | NUR ---
Received patient resting in bed with no sign of distress noted. Patient reports no chest pain at this time. Patient has been sinus rhythm on monitor. Safety measures are in place, with call light and belongings within reach. Will continue to monitor.
--- NOTE | 2019-11-14 07:47 | NUR ---
RT NO HHN GIVEN AT THIS TIME PT PUI . PUI PROTOCAL
[2019-11-14 07:53] LABS: BASOPHILS % (AUTO) 0.5 % (0.0-2.0); EOSINOPHILS # (AUTO) 0.1 K/uL (0.0-0.7); EOSINOPHILS % (AUTO) 1.1 % (0.0-7.0); HEMATOCRIT 30.2 % (31.2-41.9); HEMOGLOBIN 10.2 g/dL (10.9-14.3); LYMPHOCYTES % (AUTO) 29.1 % (20.5-51.5); MEAN CORPUSCULAR HEMOGLOBIN 27.8 uug (24.7-32.8); MEAN CORPUSCULAR HGB CONC 34 g/dL (32.3-35.6); MEAN CORPUSCULAR VOLUME 81.8 fL (75.5-95.3); MONOCYTES # (AUTO) 0.9 K/uL (2.0-10.0); MONOCYTES % (AUTO) 12.5 % (0.0-11.0); NEUTROPHILS % (AUTO) 56.8 % (38.5-71.5); PLATELET COUNT (AUTO) 431 K/uL (179-408); RED BLOOD CELL COUNT(AUTO) 3.69 MIL/uL (3.63-4.92)
[2019-11-14 07:58] LABS: CREATININE 1.1 mg/dL (0.6-1.3); MAGNESIUM 2.1 mg/dL (1.8-2.4); PHOSPHOROUS 4.1 mg/dL (2.5-4.9); POTASSIUM 3.4 mmol/L (3.5-5.1)
[2019-11-14 08:21] VITALS: BP 133/56
[2019-11-14] MEDS: CALCIUM CARB/VITAMIN D 500MG-200UNITS TABLET PO SCH ×2 (09:40→17:31)
[2019-11-14] MEDS: CLOPIDOGREL 75 MG TABLET PO SCH (09:40)
[2019-11-14] MEDS: PANTOPRAZOLE SODIUM 40 MG TABLET.DR PO SCH (09:40)
[2019-11-14] MEDS: ATORVASTATIN 10 MG TABLET PO SCH (09:40)
[2019-11-14] MEDS: METOCLOPRAMIDE HCL 10 MG TABLET PO SCH ×3 (09:40→17:31)
[2019-11-14] MEDS: DOCUSATE SODIUM 100 MG CAPSULE PO SCH (09:40)
[2019-11-14] MEDS: AMLODIPINE 10 MG TABLET PO SCH (09:41)
[2019-11-14] MEDS: hydrALAZINE HCL 50 MG TABLET PO SCH ×3 (09:41→17:32)
[2019-11-14] MEDS: FLUTICASONE/VILANTEROL 1 EACH BLST.W.DEV IH SCH (09:42)
[2019-11-14] MEDS ORDERED: POTASSIUM CHLORIDE 20 MEQ TAB.PRT.SR PO SCH (10:00)
[2019-11-14 11:22] VITALS: BP 111/50
[2019-11-14] MEDS: INSULIN REGULAR, HUMAN 300 UNIT/3 ML VIAL SQ PRN (13:16)
[2019-11-14 15:04] VITALS: BP 111/50
--- NOTE | 2019-11-14 18:34 | NUR ---
Patient is resting in bed. No sign of distress noted at this time. Gave all medications as ordered. Patient denies any pain. Will endorse to oncoming nurse.
--- NOTE | 2019-11-14 19:30 | NUR ---
Received patient awake and alert. No s/s of acute distress noted. Pt denies SOB and Pain. environmental monitoring technician on and showing sinus rhythm on monitor. Safety measures in place and will continue to monitor.
[2019-11-14 20:07] VITALS: BP 115/56
[2019-11-14] MEDS: MONTELUKAST SODIUM 10 MG TABLET PO SCH (20:23)
[2019-11-14] MEDS: QUETIAPINE FUMARATE 25 MG TABLET PO SCH (20:23)
[2019-11-14] MEDS: MIRTAZAPINE 15 MG TABLET PO SCH (20:23)
[2019-11-15 00:27] VITALS: BP 120/68
[2019-11-15] MEDS: ALBUTEROL SULFATE 2.5 MG/ 0.5 ML NEBU IH SCH ×4 (01:30→19:33)
[2019-11-15 04:00] VITALS: BP 110/56
[2019-11-15] MEDS: BLOOD SUGAR DIAGNOSTIC 1 EACH STRIP VI SCH ×4 (06:35→21:07)
[2019-11-15 06:55] LABS: BASOPHILS % (AUTO) 0.6 % (0.0-2.0); EOSINOPHILS # (AUTO) 0.3 K/uL (0.0-0.7); EOSINOPHILS % (AUTO) 3.5 % (0.0-7.0); HEMATOCRIT 31.4 % (31.2-41.9); HEMOGLOBIN 10.4 g/dL (10.9-14.3); LYMPHOCYTES # (AUTO) 1.7 K/uL (20.0-40.0); LYMPHOCYTES % (AUTO) 23.8 % (20.5-51.5); MEAN CORPUSCULAR HEMOGLOBIN 27.3 uug (24.7-32.8); MEAN CORPUSCULAR HGB CONC 33 g/dL (32.3-35.6); MEAN CORPUSCULAR VOLUME 82.3 fL (75.5-95.3); MONOCYTES % (AUTO) 13.8 % (0.0-11.0); NEUTROPHILS # (AUTO) 4.2 K/uL (1.8-8.9); NEUTROPHILS % (AUTO) 58.3 % (38.5-71.5); PLATELET COUNT (AUTO) 457 K/uL (179-408); RED BLOOD CELL COUNT(AUTO) 3.82 MIL/uL (3.63-4.92); WHITE BLOOD COUNT (AUTO) 7.3 K/uL (3.8-11.8)
[2019-11-15 07:17] LABS: CREATININE 1.1 mg/dL (0.6-1.3)
[2019-11-15] MEDS: METOCLOPRAMIDE HCL 10 MG TABLET PO SCH ×3 (08:03→16:06)
[2019-11-15] MEDS: hydrALAZINE HCL 50 MG TABLET PO SCH ×3 (08:03→16:06)
[2019-11-15] MEDS: DOCUSATE SODIUM 100 MG CAPSULE PO SCH (08:03)
[2019-11-15] MEDS: PANTOPRAZOLE SODIUM 40 MG TABLET.DR PO SCH (08:03)
[2019-11-15] MEDS: ATORVASTATIN 10 MG TABLET PO SCH (08:03)
[2019-11-15] MEDS: AMLODIPINE 10 MG TABLET PO SCH (08:03)
[2019-11-15] MEDS: CLOPIDOGREL 75 MG TABLET PO SCH (08:03)
[2019-11-15] MEDS: CALCIUM CARB/VITAMIN D 500MG-200UNITS TABLET PO SCH ×2 (08:03→16:05)
[2019-11-15] MEDS: FLUTICASONE/VILANTEROL 1 EACH BLST.W.DEV IH SCH (08:04)
[2019-11-15 11:54] VITALS: BP 123/59
[2019-11-15 15:47] VITALS: BP 130/54
--- NOTE | 2019-11-15 20:00 | NUR ---
Received patient awake and alert in bed, no signs of acute distress noted. A/Ox3, Swedish speaking. No complaints of chest pain or SOB. Vitals WNL. Heplock on right FA is intact and patent. Safety measures initiated. bed is low and locked, call light within reach. Will continue to monitor.
[2019-11-15 20:39] VITALS: BP 124/55
[2019-11-15] MEDS: MONTELUKAST SODIUM 10 MG TABLET PO SCH (20:53)
[2019-11-15] MEDS: MIRTAZAPINE 15 MG TABLET PO SCH (20:53)
[2019-11-15] MEDS: QUETIAPINE FUMARATE 25 MG TABLET PO SCH (20:53)
[2019-11-15] MEDS: INSULIN REGULAR, HUMAN 300 UNIT/3 ML VIAL SQ PRN (21:06)
[2019-11-16] MEDS: ALBUTEROL SULFATE 2.5 MG/ 0.5 ML NEBU IH SCH ×4 (00:36→19:34)
[2019-11-16 04:37] VITALS: BP 136/72
[2019-11-16 04:41] VITALS: BP 142/65
[2019-11-16 05:25] LABS: *BILIRUBIN,URIN NEGATIVE (NEGATIVE); *BLOOD, URINE NEGATIVE (NEGATIVE); *CLARITY,URINE CLEAR (CLEAR); *COLOR,URINE YELLOW (YELLOW); *KETONES,URINE NEGATIVE (NEGATIVE); *UROBILINOGEN,URINE 0.2 E.U./dl (NORMAL); LEUKOCYTE ESTERASE ,URINE 2+ (NEGATIVE); NITRITE, URINE NEGATIVE (NEGATIVE); UGLUCOSE NEGATIVE (NEGATIVE)
[2019-11-16 05:26] LABS: *CREATININE,URINE 50.9 mg/dL (30-125); *URINE TOTAL PROTEIN RANDOM < 6.0 mg/dL (<150/24HR)
[2019-11-16] MEDS: BLOOD SUGAR DIAGNOSTIC 1 EACH STRIP VI SCH ×3 (06:39→16:58)
[2019-11-16 07:08] LABS: BASOPHILS % (AUTO) 0.5 % (0.0-2.0); EOSINOPHILS # (AUTO) 0.2 K/uL (0.0-0.7); EOSINOPHILS % (AUTO) 3.1 % (0.0-7.0); HEMATOCRIT 32.3 % (31.2-41.9); HEMOGLOBIN 10.6 g/dL (10.9-14.3); LYMPHOCYTES # (AUTO) 1.6 K/uL (20.0-40.0); LYMPHOCYTES % (AUTO) 20.7 % (20.5-51.5); MEAN CORPUSCULAR HEMOGLOBIN 27.2 uug (24.7-32.8); MEAN CORPUSCULAR HGB CONC 33 g/dL (32.3-35.6); MEAN CORPUSCULAR VOLUME 82.7 fL (75.5-95.3); MONOCYTES % (AUTO) 12.7 % (0.0-11.0); NEUTROPHILS # (AUTO) 4.9 K/uL (1.8-8.9); PLATELET COUNT (AUTO) 487 K/uL (179-408); WHITE BLOOD COUNT (AUTO) 7.8 K/uL (3.8-11.8)
--- NOTE | 2019-11-16 07:30 | NUR ---
Awake, alert, oriented x 3, swedish speaking. Denies pain. Not in distress
[2019-11-16 07:53] LABS: CREATININE 1.1 mg/dL (0.6-1.3); MAGNESIUM 2.3 mg/dL (1.8-2.4); PHOSPHOROUS 4.1 mg/dL (2.5-4.9)
[2019-11-16] MEDS: ATORVASTATIN 10 MG TABLET PO SCH (08:51)
[2019-11-16] MEDS: DOCUSATE SODIUM 100 MG CAPSULE PO SCH (08:52)
[2019-11-16] MEDS: CLOPIDOGREL 75 MG TABLET PO SCH (08:52)
[2019-11-16] MEDS: METOCLOPRAMIDE HCL 10 MG TABLET PO SCH ×3 (08:52→16:51)
[2019-11-16] MEDS: CALCIUM CARB/VITAMIN D 500MG-200UNITS TABLET PO SCH ×2 (08:52→16:51)
[2019-11-16] MEDS: PANTOPRAZOLE SODIUM 40 MG TABLET.DR PO SCH (08:52)
[2019-11-16] MEDS: AMLODIPINE 10 MG TABLET PO SCH (08:55)
[2019-11-16] MEDS: FLUTICASONE/VILANTEROL 1 EACH BLST.W.DEV IH SCH (08:56)
[2019-11-16] MEDS: hydrALAZINE HCL 50 MG TABLET PO SCH ×3 (08:56→16:52)
[2019-11-16 10:17] LABS: BACTERIA,URINE FEW /HPF (NONE SEEN); RBC,URINE 0-3 /HPF (0-3); SQUAMOUS EPITHELIAL CELL,UR FEW /HPF (NONE SEEN)
[2019-11-16] MEDS ORDERED: FERROUS SULFATE 325 MG TABEC PO SCH (11:45)
[2019-11-16] MEDS ORDERED: SULFAMETH/TRIMETH 800/160 MG TABLET PO SCH (11:45)
[2019-11-16 12:00] VITALS: BP 115/57
[2019-11-16] MEDS: INSULIN REGULAR, HUMAN 300 UNIT/3 ML VIAL SQ PRN (12:32)
[2019-11-16 16:00] VITALS: BP 112/55
--- NOTE | 2019-11-16 16:15 | NUR ---
o2 sat 97% on r/a today. Mindi, transplant case manager notified.
[2019-11-16 16:52] VITALS: BP 112/55
--- NOTE | 2019-11-16 18:40 | NUR ---
PT discharge confirmed by doctor. PT notified and made aware. PT is is stable condition, no pain, no distress, afebrile. Notified PTs daughter, Katiana, that her mother is ready for pickup. Daughter says she will be by at 2030. Gave daughter number of facility and made aware of discharge protocol. Will endorse to PM nurse.
== END 2019-11-16 20:31 | disposition home or self-care (01) | DRG 206 ==
LOC: ER 19:43 → TELE3 23:45 → MEDSURG3 11-15 14:30
PROVIDERS: ADMIT Internal Medicine; ATTEND Internal Medicine
DX: M94.0 Chondrocostal junction syndrome [Tietze] (principal); I50.32 Chronic diastolic (congestive) heart failure; I13.0 Hypertensive heart and chronic kidney disease with heart failure and stage 1 through stage 4 chronic kidney disease, or unspecified chronic kidney disease; J98.11 Atelectasis; N39.0 Urinary tract infection, site not specified; E22.2 Syndrome of inappropriate secretion of antidiuretic hormone; J44.1 Chronic obstructive pulmonary disease with (acute) exacerbation; Z88.0 Allergy status to penicillin; K21.9 Gastro-esophageal reflux disease without esophagitis; E86.1 Hypovolemia; K44.9 Diaphragmatic hernia without obstruction or gangrene; D63.1 Anemia in chronic kidney disease; J45.909 Unspecified asthma, uncomplicated; R53.1 Weakness; I25.10 Atherosclerotic heart disease of native coronary artery without angina pectoris; E11.22 Type 2 diabetes mellitus with diabetic chronic kidney disease; F03.90 Unspecified dementia, unspecified severity, without behavioral disturbance, psychotic disturbance, mood disturbance, and anxiety; M19.90 Unspecified osteoarthritis, unspecified site; K29.70 Gastritis, unspecified, without bleeding; R07.81 Pleurodynia; N18.2 Chronic kidney disease, stage 2 (mild); M81.0 Age-related osteoporosis without current pathological fracture; E78.5 Hyperlipidemia, unspecified; Z90.710 Acquired absence of both cervix and uterus; B96.20 Unspecified Escherichia coli [E. coli] as the cause of diseases classified elsewhere
CPT/HCPCS: 36415; 70030-TC; 71045; 83550; 83735; 84100; 84156; 84300; 85025; 87040; 87077; 87086; 93005; 94640; 94664; A4663; G0378; J1815; J1940; J2930; J3590; J8597; U0003-CS

== ENCOUNTER 2020-01-14 19:07 | Inpatient (IN) | payer MEDICARE, OTHER ==
[~2020-01-14] VITALS: Ht 152.4 cm; Wt 58.1 kg
[~2020-01-14 19:07] MED LIST changes: +ALEN70TA69 PO; +AMLO10TA59 PO; -AMLO10TA7 PO; +BUDESONIDE; -CALC500T53 PO; +DOCU-141 PO; -ENOX40DI SQ; -FLUT1DIS27 INH; +FLUT1DIS28 IH; -MAGN400O6 PO; -ONDA-104 IVP; -PRED20TA PO; -VENL75CA56 PO; -ZOLP5TAB8 PO; +diclofenac gel; +remeron PO
[2020-01-14] MEDS ORDERED: DICYCLOMINE HCL LIQ 10 MG/5 ML UDC PO ONE (19:30)
[2020-01-14] MEDS ORDERED: IPRATROPIUM BROMIDE 0.5 MG/2.5 ML NEBU NEB ONE (19:30)
[2020-01-14] MEDS ORDERED: IV NORMAL SALINE 500 ML BAG IV ONE (19:30)
[2020-01-14] MEDS ORDERED: PANTOPRAZOLE SODIUM 40 MG TABLET.DR PO ONE ×2 (19:30→20:00)
[2020-01-14] MEDS ORDERED: MAG HYDROX/AL HYDROX/SIMETH 30 ML LIQUID UDC PO ONE (19:30)
[2020-01-14] MEDS ORDERED: ALBUTEROL SULFATE 2.5 MG/3 ML NEBU NEB ONE (19:30)
[2020-01-14] MEDS ORDERED: ALBUTEROL SULFATE 2.5 MG/3 ML NEBU ONE (19:37)
[2020-01-14] MEDS ORDERED: IPRATROPIUM BROMIDE 0.5 MG/2.5 ML NEBU ONE (19:38)
[2020-01-14] MEDS ORDERED: MAGNESIUM HYDROXIDE 30 ML LIQUID UDC ONE (19:59)
[2020-01-14] MEDS ORDERED: DICYCLOMINE HCL LIQ 10 MG/5 ML UDC ONE (20:00)
[2020-01-14] MEDS ORDERED: MECL-159 PO (20:13)
[2020-01-14] MEDS ORDERED: MIRT15TA7 PO (20:13)
[2020-01-14] MEDS ORDERED: CICL15CR12 TP (20:13)
[2020-01-14] MEDS ORDERED: BRIM5DRO3 EACHEYE (20:13)
[2020-01-14] MEDS ORDERED: ONDA-104 PO (20:13)
[2020-01-14 20:15] LABS: BASOPHILS # (AUTO) 0.1 K/uL (0.0-8.0); BASOPHILS % (AUTO) 0.7 % (0.0-2.0); EOSINOPHILS % (AUTO) 0.3 % (0.0-7.0); HEMATOCRIT 31.9 % (31.2-41.9); HEMOGLOBIN 10.5 g/dL (10.9-14.3); LYMPHOCYTES # (AUTO) 0.7 K/uL (20.0-40.0); MEAN CORPUSCULAR HEMOGLOBIN 26.2 uug (24.7-32.8); MEAN CORPUSCULAR HGB CONC 33 g/dL (32.3-35.6); MEAN CORPUSCULAR VOLUME 79.3 fL (75.5-95.3); MONOCYTES # (AUTO) 0.8 K/uL (2.0-10.0); MONOCYTES % (AUTO) 7.9 % (0.0-11.0); NEUTROPHILS # (AUTO) 8.9 K/uL (1.8-8.9); NEUTROPHILS % (AUTO) 84.1 % (38.5-71.5); PLATELET COUNT (AUTO) 391 K/uL (179-408); RED BLOOD CELL COUNT(AUTO) 4.02 MIL/uL (3.63-4.92); WHITE BLOOD COUNT (AUTO) 10.6 K/uL (3.8-11.8)
[2020-01-14 20:21] LABS: CARBON DIOXIDE 28 mmol/L (21-32); CHLORIDE 91 mmol/L (98-107); CREATININE 0.8 mg/dL (0.6-1.3); GLUCOSE 149 mg/dL (74-106); POTASSIUM 3.9 mmol/L (3.5-5.1); UREA NITROGEN, BLOOD 11 mg/dL (7-18)
[2020-01-14 20:38] LABS: ALANINE AMINOTRANSFERASE 23 U/L (14-59); ALKALINE PHOSPHATASE 99 U/L (50-136); ASPARTATE AMINOTRANSFERASE 14 U/L (15-37); BILIRUBIN,DIRECT < 0.1 mg/dL (0.0-0.2); BILIRUBIN,TOTAL 0.2 mg/dL (0.2-1.0)
--- NOTE | 2020-01-14 20:57 | NUR ---
Dr. Quevedo is on the line with Dr. Edward for panel call admission. Per Wilber, children's court magistrate, patient will be going to Room 329 - B.
--- NOTE | 2020-01-14 20:58 | NUR ---
Per Dr. Rader, admit to hospitalist. [facility] on-call Dr. Liz Pedro paged for admission.
[2020-01-14 21:10] LABS: *BILIRUBIN,URIN NEGATIVE (NEGATIVE); *CLARITY,URINE CLEAR (CLEAR); *COLOR,URINE LIGHT YELLOW (YELLOW); *KETONES,URINE NEGATIVE (NEGATIVE); *UROBILINOGEN,URINE 0.2 E.U./dl (NORMAL); LEUKOCYTE ESTERASE ,URINE TRACE (NEGATIVE); NITRITE, URINE NEGATIVE (NEGATIVE); UGLUCOSE NEGATIVE (NEGATIVE)
[2020-01-14 21:16] LABS: *BLOOD, URINE TRACE LYSED (NEGATIVE)
--- NOTE | 2020-01-14 21:19 | NUR ---
Liz Pedro accepted for admission, Dx: CHF. Pt with slightly elevate troponin, no new orders per ER MD at this time.
--- NOTE | 2020-01-14 21:25 | NUR ---
Called Wilber CONNER to give report, pending call back.
[2020-01-14] MEDS ORDERED: MAGNESIUM HYDROXIDE 30 ML LIQUID UDC PO PRN (21:30)
[2020-01-14] MEDS ORDERED: ALBUTEROL SULFATE 2.5 MG/ 0.5 ML NEBU IH SCH (21:30)
[2020-01-14] MEDS ORDERED: Z GUARD REMEDY PASTE 57 GM TUBE TOP PRN (21:30)
[2020-01-14] MEDS ORDERED: HYDROCODONE/APAP 5-325MG TABLET PO PRN (21:30)
[2020-01-14] MEDS ORDERED: FUROSEMIDE 20 MG/2 ML VIAL IV ONE (21:30)
[2020-01-14] MEDS ORDERED: MECLIZINE HCL 25 MG TABLET PO SCH (21:30)
[2020-01-14] MEDS ORDERED: ONDANSETRON HCL 4 MG TABLET PO PRN (21:30)
[2020-01-14] MEDS ORDERED: ONDANSETRON 4 MG/2 ML VIAL IV PRN (21:30)
--- NOTE | 2020-01-14 22:00 | NUR ---
ADMITTED ALERT X4 SPEAKS LITHUANIAN, SLIGHT SOB. PULSE OXIMETRY 100 IN NO ACUTE DISTRESS , NO COMPLAINS MADE. LASIX 20MG IV GIVEN, TYLENOL GRAINS 10 GIVEN MADE COMFORTABLE,SLEPT AFTERWARD
[2020-01-14 22:27] VITALS: BP 143/86
[2020-01-14] MEDS: ENOXAPARIN SODIUM 30 MG/0.3 ML DISP.SYRIN SQ SCH (22:33)
[2020-01-14] MEDS ORDERED: MIRTAZAPINE 15 MG TABLET PO ONE (23:00)
[2020-01-14 23:09] LABS: BACTERIA,URINE FEW /HPF (NONE SEEN); SQUAMOUS EPITHELIAL CELL,UR FEW /HPF (NONE SEEN)
[2020-01-14] MEDS: ACETAMINOPHEN 325 MG TABLET PO PRN (23:35)
[2020-01-14 23:59] VITALS: BP 161/69
[2020-01-15 04:10] VITALS: BP 159/59
[2020-01-15] MEDS ORDERED: ALBUTEROL SULFATE 2.5 MG/ 0.5 ML NEBU NEB PRN (06:23)
[2020-01-15 06:47] LABS: BASOPHILS % (AUTO) 0.7 % (0.0-2.0); EOSINOPHILS # (AUTO) 0.2 K/uL (0.0-0.7); EOSINOPHILS % (AUTO) 2.6 % (0.0-7.0); HEMATOCRIT 32.3 % (31.2-41.9); HEMOGLOBIN 10.8 g/dL (10.9-14.3); LYMPHOCYTES # (AUTO) 1.3 K/uL (20.0-40.0); LYMPHOCYTES % (AUTO) 20.1 % (20.5-51.5); MEAN CORPUSCULAR HEMOGLOBIN 26.5 uug (24.7-32.8); MEAN CORPUSCULAR HGB CONC 33 g/dL (32.3-35.6); MEAN CORPUSCULAR VOLUME 79.4 fL (75.5-95.3); MONOCYTES # (AUTO) 0.9 K/uL (2.0-10.0); NEUTROPHILS # (AUTO) 4.1 K/uL (1.8-8.9); NEUTROPHILS % (AUTO) 62.6 % (38.5-71.5); PLATELET COUNT (AUTO) 427 K/uL (179-408); RED BLOOD CELL COUNT(AUTO) 4.07 MIL/uL (3.63-4.92); WHITE BLOOD COUNT (AUTO) 6.6 K/uL (3.8-11.8)
[2020-01-15 07:13] LABS: BILIRUBIN,TOTAL 0.2 mg/dL (0.2-1.0); CREATININE 0.8 mg/dL (0.6-1.3); MAGNESIUM 2.1 mg/dL (1.8-2.4); PHOSPHOROUS 4.2 mg/dL (2.5-4.9); POTASSIUM 3.6 mmol/L (3.5-5.1); TOTAL PROTEIN, SERUM 6.9 g/dL (6.4-8.2)
--- NOTE | 2020-01-15 07:20 | NUR ---
Received patient resting in bed, patient shows no s/s of respiratory distress. Patient denies pain and discomfort. Bed in lowest position, side rails upx2, call light within reach, bed alarm on.
[2020-01-15] MEDS: METOCLOPRAMIDE HCL 10 MG TABLET PO SCH ×3 (08:14→16:15)
[2020-01-15] MEDS: CALCIUM CARB/VITAMIN D 500MG-200UNITS TABLET PO SCH ×2 (08:14→16:15)
[2020-01-15] MEDS: DOCUSATE SODIUM 100 MG CAPSULE PO SCH (08:14)
[2020-01-15] MEDS: hydrALAZINE HCL 50 MG TABLET PO SCH ×3 (08:15→16:15)
[2020-01-15] MEDS: AMLODIPINE 10 MG TABLET PO SCH (08:15)
[2020-01-15] MEDS: CICLOPIROX 0.77% CREAM 30 GM TUBE TP SCH ×2 (08:17→16:15)
[2020-01-15] MEDS: FLUTICASONE/VILANTEROL 1 EACH BLST.W.DEV INH SCH (08:18)
[2020-01-15] MEDS: BRIMONIDINE 0.2% OPHT DROP 10 ML BOTTLE EACHEYE SCH ×2 (08:18→16:17)
[2020-01-15] MEDS ORDERED: BRIMONIDINE-P 0.1% OPHTH DROP 5 ML DROPS EACHEYE SCH (09:00)
[2020-01-15] MEDS ORDERED: METOCLOPRAMIDE HCL 10 MG TABLET PO SCH (09:00)
[2020-01-15] MEDS ORDERED: CALCIUM CARB/VITAMIN D 500MG-200UNITS TABLET PO SCH (09:00)
[2020-01-15] MEDS ORDERED: ERGOCALCIFEROL 50,000 UNIT CAPSULE PO SCH (09:00)
[2020-01-15] MEDS ORDERED: ATORVASTATIN 10 MG TABLET PO SCH (09:00)
[2020-01-15] MEDS ORDERED: MAGNESIUM HYDROXIDE 30 ML LIQUID UDC PO PRN (11:00)
[2020-01-15 12:00] VITALS: BP 130/55
[2020-01-15 16:00] VITALS: BP 115/48
--- NOTE | 2020-01-15 18:46 | NUR ---
Patient A&0x3 patient SR on the monitor. Patient denies any s/s of respiratory distress. Patient denies pain and discomfort. Patient had 3 loose pasty stools. Safety measures provided bed in lowest position, side rails up x2, call light within reach, bed alarm on. Will endorse to oncoming nurse.
[2020-01-15 20:21] VITALS: BP 138/67
--- NOTE | 2020-01-15 20:50 | NUR ---
Sleeping during rounds. No s/s of pain/discomforts at this time.
[2020-01-15] MEDS: MONTELUKAST SODIUM 10 MG TABLET PO SCH (21:10)
[2020-01-15] MEDS: ATORVASTATIN 10 MG TABLET PO SCH (21:10)
[2020-01-15] MEDS: MIRTAZAPINE 15 MG TABLET PO SCH (21:10)
[2020-01-15] MEDS: ENOXAPARIN SODIUM 30 MG/0.3 ML DISP.SYRIN SQ SCH (21:14)
[2020-01-15] MEDS ORDERED: ZOLPIDEM 5 MG TABLET PO PRN (21:30)
--- NOTE | 2020-01-15 23:45 | NUR ---
Awake during initial rounds and started asking for her sleeping pills. Instructed patient that she has nothing ordered but will get an order from the doctor and Ill let her know once I obtained the order. Safety measures and fall prevention maintained. Continue care as planned.
[2020-01-16 00:12] VITALS: BP 135/58
[2020-01-16 04:27] VITALS: BP 120/66
--- NOTE | 2020-01-16 05:45 | NUR ---
NURSE AIDE reported that patient did not void the whole night. Apple sauce was given with medications but no water. Bladder scan performed shows 217 ml. Tried to repositioned patient from side to side, bedpan offered but refused. Will monitor.
[2020-01-16] MEDS: METOCLOPRAMIDE HCL 10 MG TABLET PO SCH ×3 (05:49→16:40)
[2020-01-16] MEDS ORDERED: ALENDRONATE SODIUM 70 MG TABLET PO SCH (06:00)
[2020-01-16 06:28] LABS: BASOPHILS % (AUTO) 0.7 % (0.0-2.0); EOSINOPHILS # (AUTO) 0.3 K/uL (0.0-0.7); HEMATOCRIT 34.7 % (31.2-41.9); HEMOGLOBIN 11.4 g/dL (10.9-14.3); LYMPHOCYTES # (AUTO) 1.5 K/uL (20.0-40.0); LYMPHOCYTES % (AUTO) 23.2 % (20.5-51.5); MEAN CORPUSCULAR HEMOGLOBIN 26.3 uug (24.7-32.8); MEAN CORPUSCULAR HGB CONC 33 g/dL (32.3-35.6); MEAN CORPUSCULAR VOLUME 79.8 fL (75.5-95.3); MONOCYTES # (AUTO) 0.8 K/uL (2.0-10.0); MONOCYTES % (AUTO) 12.1 % (0.0-11.0); NEUTROPHILS # (AUTO) 3.9 K/uL (1.8-8.9); PLATELET COUNT (AUTO) 463 K/uL (179-408); RED BLOOD CELL COUNT(AUTO) 4.34 MIL/uL (3.63-4.92); WHITE BLOOD COUNT (AUTO) 6.6 K/uL (3.8-11.8)
[2020-01-16 06:35] LABS: CREATININE 0.9 mg/dL (0.6-1.3); MAGNESIUM 2.4 mg/dL (1.8-2.4); PHOSPHOROUS 4.3 mg/dL (2.5-4.9); POTASSIUM 4.1 mmol/L (3.5-5.1); URIC ACID 4.5 mg/dL (2.6-6.0)
[2020-01-16 06:46] LABS: THYROID STIMULATING HORMONE 3.003 mIU/mL (0.358-3.740)
--- NOTE | 2020-01-16 07:44 | NUR ---
Patient able to void 400 cc at this time with bedpan. No complaint presented.
[2020-01-16] MEDS: FLUTICASONE/VILANTEROL 1 EACH BLST.W.DEV INH SCH (09:00)
[2020-01-16] MEDS: AMLODIPINE 10 MG TABLET PO SCH (09:00)
[2020-01-16] MEDS: hydrALAZINE HCL 50 MG TABLET PO SCH ×3 (09:00→16:43)
[2020-01-16] MEDS ORDERED: FUROSEMIDE 20 MG/2 ML VIAL IV SCH (09:00)
[2020-01-16 10:01] LABS: ABG BASE EXCESS 2.8 mmol/L; ABG HCO3 27.5 mmol/L; ABG PCO2 42.7 mmHg (35.0-45.0); ABG PH 7.427 (7.350-7.450); ABG PO2 95.6 mmHg (75.0-100.0); ABG SITE RIGHT RADIAL; ABG TOTAL HEMOGLOBIN 11.8 G/dL (12.0-16.0); COHb 1.2 % (0.5-1.5); O2Hb 96.6 % (94.0-97.0); VENT MODE Nasal Cannula 1L
[2020-01-16] MEDS: CALCIUM CARB/VITAMIN D 500MG-200UNITS TABLET PO SCH ×2 (10:03→16:41)
[2020-01-16] MEDS: DOCUSATE SODIUM 100 MG CAPSULE PO SCH (10:03)
[2020-01-16] MEDS: BRIMONIDINE 0.2% OPHT DROP 10 ML BOTTLE EACHEYE SCH ×2 (10:12→16:43)
[2020-01-16] MEDS: CICLOPIROX 0.77% CREAM 30 GM TUBE TP SCH ×2 (10:13→16:43)
[2020-01-16 12:00] VITALS: BP 131/53
[2020-01-16 16:00] VITALS: BP 146/71
[2020-01-16] MEDS: ACETAMINOPHEN 325 MG TABLET PO PRN (16:41)
[2020-01-16] MEDS: FUROSEMIDE 20 MG TABLET PO SCH (18:03)
--- NOTE | 2020-01-16 18:54 | NUR ---
Patient is resting in bed. No sign of distress noted at this time. All medications given as ordered. Safety precautions in place with call light and belongings within reach. Will endorse to oncoming nurse.
--- NOTE | 2020-01-16 19:00 | NUR ---
Received patient from nurse. Stable condition. Safety measures in place. Will monitor, assess, continue plan of care. Addendum: 01/17/20 at 0703 by JOSEPH VO RN Wrong patient.
--- NOTE | 2020-01-16 19:18 | NUR ---
Received patient from AM nurse. Stable condition. Safety measures in place. Will monitor, assess, continue plan of care.
[2020-01-16 20:00] VITALS: BP 101/44
[2020-01-16] MEDS: ATORVASTATIN 10 MG TABLET PO SCH (21:07)
[2020-01-16] MEDS: MONTELUKAST SODIUM 10 MG TABLET PO SCH (21:08)
[2020-01-16] MEDS: MIRTAZAPINE 15 MG TABLET PO SCH (21:08)
[2020-01-16] MEDS: ENOXAPARIN SODIUM 30 MG/0.3 ML DISP.SYRIN SQ SCH (21:09)
[2020-01-17 04:00] VITALS: BP 149/65
[2020-01-17] MEDS: METOCLOPRAMIDE HCL 10 MG TABLET PO SCH ×3 (06:55→17:36)
--- NOTE | 2020-01-17 07:02 | NUR ---
Patient handed off to AM nurse. Stable condition. Will endorse all necessary information.
--- NOTE | 2020-01-17 07:30 | NUR ---
Received patient resting in bed awake alert and oriented times 4. Patient is Kinyarwanda speaking. No sign of distress noted at this time. Safety precautions are in place with call light and belongings within reach. Will continue to monitor.
[2020-01-17] MEDS: hydrALAZINE HCL 50 MG TABLET PO SCH (09:00)
[2020-01-17] MEDS: AMLODIPINE 10 MG TABLET PO SCH (09:00)
[2020-01-17] MEDS: DOCUSATE SODIUM 100 MG CAPSULE PO SCH (09:03)
[2020-01-17] MEDS: FUROSEMIDE 20 MG TABLET PO SCH (09:03)
[2020-01-17] MEDS: CALCIUM CARB/VITAMIN D 500MG-200UNITS TABLET PO SCH ×2 (09:04→17:36)
[2020-01-17] MEDS: CICLOPIROX 0.77% CREAM 30 GM TUBE TP SCH ×2 (09:07→17:38)
[2020-01-17] MEDS: BRIMONIDINE 0.2% OPHT DROP 10 ML BOTTLE EACHEYE SCH ×2 (09:08→17:38)
[2020-01-17] MEDS: FLUTICASONE/VILANTEROL 1 EACH BLST.W.DEV INH SCH (09:08)
[2020-01-17] MEDS ORDERED: LACTULOSE 20 G/30 ML LIQUID UDC PO PRN (11:15)
[2020-01-17 11:38] VITALS: BP 124/54
[2020-01-17 11:52] LABS: BASOPHILS % (AUTO) 0.4 % (0.0-2.0); EOSINOPHILS # (AUTO) 0.1 K/uL (0.0-0.7); EOSINOPHILS % (AUTO) 1.3 % (0.0-7.0); HEMATOCRIT 35.2 % (31.2-41.9); HEMOGLOBIN 11.4 g/dL (10.9-14.3); LYMPHOCYTES # (AUTO) 0.8 K/uL (20.0-40.0); LYMPHOCYTES % (AUTO) 10.2 % (20.5-51.5); MEAN CORPUSCULAR HEMOGLOBIN 25.9 uug (24.7-32.8); MEAN CORPUSCULAR HGB CONC 32 g/dL (32.3-35.6); MEAN CORPUSCULAR VOLUME 79.8 fL (75.5-95.3); MONOCYTES # (AUTO) 0.8 K/uL (2.0-10.0); MONOCYTES % (AUTO) 10.9 % (0.0-11.0); NEUTROPHILS # (AUTO) 5.8 K/uL (1.8-8.9); NEUTROPHILS % (AUTO) 77.2 % (38.5-71.5); PLATELET COUNT (AUTO) 441 K/uL (179-408); RED BLOOD CELL COUNT(AUTO) 4.41 MIL/uL (3.63-4.92); WHITE BLOOD COUNT (AUTO) 7.6 K/uL (3.8-11.8)
[2020-01-17 12:00] LABS: CREATININE 0.9 mg/dL (0.6-1.3); POTASSIUM 4.5 mmol/L (3.5-5.1)
[2020-01-17 15:05] VITALS: BP 137/62
[2020-01-17] MEDS ORDERED: AMLODIPINE 10 MG TABLET PO SCH (17:00)
[2020-01-17 17:38] VITALS: BP 137/62
--- NOTE | 2020-01-17 19:34 | NUR ---
Patient is resting in bed. No sign of distress noted. Gave all medications as ordered. Safety measures are in place with call light and belongings within reach. Will endorse to the oncoming nurse.
--- NOTE | 2020-01-17 19:56 | NUR ---
with orders for discharge . daughter is going to come to take patient home . discharge papers are ready for the discharge and patient is aware.
--- NOTE | 2020-01-17 21:24 | NUR ---
daughter and family in. saturation on room air 96%. discharge instructions given to the daughter, discharge via wheelchair in stable condition. iv cannula discontinued and no signs of infection noted, will follow up with primary care physician,
[2020-01-19] MEDS ORDERED: ERGOCALCIFEROL 50,000 UNIT CAPSULE PO SCH ×2 (09:00)
== END 2020-01-17 21:30 | disposition home health service (06) | DRG 291 ==
LOC: ER 19:07 → TELE3 21:37 → MEDSURG3 01-16 18:30
PROVIDERS: ADMIT Internal Medicine; ATTEND Internal Medicine
DX: I13.0 Hypertensive heart and chronic kidney disease with heart failure and stage 1 through stage 4 chronic kidney disease, or unspecified chronic kidney disease (principal); J96.21 Acute and chronic respiratory failure with hypoxia; I50.33 Acute on chronic diastolic (congestive) heart failure; J44.1 Chronic obstructive pulmonary disease with (acute) exacerbation; I50.32 Chronic diastolic (congestive) heart failure; E87.1 Hypo-osmolality and hyponatremia; N18.2 Chronic kidney disease, stage 2 (mild); Z99.81 Dependence on supplemental oxygen; F03.90 Unspecified dementia, unspecified severity, without behavioral disturbance, psychotic disturbance, mood disturbance, and anxiety; F39 Unspecified mood [affective] disorder; I25.10 Atherosclerotic heart disease of native coronary artery without angina pectoris; K44.9 Diaphragmatic hernia without obstruction or gangrene; Z79.02 Long term (current) use of antithrombotics/antiplatelets; K21.9 Gastro-esophageal reflux disease without esophagitis; E11.22 Type 2 diabetes mellitus with diabetic chronic kidney disease; E78.5 Hyperlipidemia, unspecified; K22.8 Other specified diseases of esophagus; Z88.0 Allergy status to penicillin; G31.84 Mild cognitive impairment of uncertain or unknown etiology; M19.90 Unspecified osteoarthritis, unspecified site; J44.9 Chronic obstructive pulmonary disease, unspecified; K59.00 Constipation, unspecified; M81.0 Age-related osteoporosis without current pathological fracture; Z20.828 Contact with and (suspected) exposure to other viral communicable diseases
CPT/HCPCS: 36415; 36600; 70030-TC; 71045; 83605; 83735; 84100; 84443; 84550; 85025; 87040; 93005; 93880; G0378; J1650; J1940; J3590; J7040; J8499; J8597; U0003

== ENCOUNTER 2020-02-02 18:00 | Inpatient (IN) | payer MEDICARE, OTHER ==
[~2020-02-02] VITALS: Ht 162.6 cm; Wt 55.3 kg
[~2020-02-02 18:00] MED LIST changes: -ACET-3117 PO; -BLOO-668 IN; +BRIM5DRO3 EACHEYE; -BUDESONIDE; +CICL15CR12 TP; -CLOP75TA15 PO; +MECL-159 PO; +MIRT15TA7 PO; +ONDA-104 PO; -PANT40TA2 PO; -QUET50TA PO; -remeron PO
[2020-02-02] MEDS: ALBUTEROL SULFATE 2.5 MG/3 ML NEBU NEB ONE ×2 (18:48→19:42)
[2020-02-02] MEDS: IPRATROPIUM BROMIDE 0.5 MG/2.5 ML NEBU NEB ONE ×2 (18:48→19:42)
--- NOTE | 2020-02-02 18:48 | NUR ---
2.5 mg Albuterol + 0.5 mg Atrovent not given, unkown covid at this time, order changed to MDI..
[2020-02-02 19:28] LABS: BASOPHILS # (AUTO) 0.1 K/uL (0.0-8.0); BASOPHILS % (AUTO) 0.9 % (0.0-2.0); CARBON DIOXIDE 26 mmol/L (21-32); CHLORIDE 98 mmol/L (98-107); CREATININE 1.6 mg/dL (0.6-1.3); EOSINOPHILS % (AUTO) 0.4 % (0.0-7.0); GLUCOSE 139 mg/dL (74-106); HEMOGLOBIN 9.8 g/dL (10.9-14.3); LYMPHOCYTES # (AUTO) 0.4 K/uL (20.0-40.0); LYMPHOCYTES % (AUTO) 5.3 % (20.5-51.5); MEAN CORPUSCULAR HEMOGLOBIN 25.8 uug (24.7-32.8); MEAN CORPUSCULAR HGB CONC 33 g/dL (32.3-35.6); MONOCYTES # (AUTO) 0.8 K/uL (2.0-10.0); MONOCYTES % (AUTO) 8.9 % (0.0-11.0); NEUTROPHILS # (AUTO) 7.2 K/uL (1.8-8.9); NEUTROPHILS % (AUTO) 84.5 % (38.5-71.5); PLATELET COUNT (AUTO) 449 K/uL (179-408); POTASSIUM 3.9 mmol/L (3.5-5.1); UREA NITROGEN, BLOOD 27 mg/dL (7-18); WHITE BLOOD COUNT (AUTO) 8.5 K/uL (3.8-11.8)
[2020-02-02] MEDS ORDERED: CLOP75TA33 PO (19:34)
[2020-02-02] MEDS ORDERED: PANT40TA49 PO (19:34)
[2020-02-02] MEDS ORDERED: FLUT1DIS28 INH (19:34)
[2020-02-02] MEDS ORDERED: DICL100G16 TP (19:34)
[2020-02-02] MEDS ORDERED: AMLO10TA59 PO (19:34)
[2020-02-02] MEDS ORDERED: QUET50TA PO (19:34)
[2020-02-02] MEDS ORDERED: VENL75CA62 PO (19:34)
[2020-02-02] MEDS ORDERED: IPRA4AER IH (19:34)
[2020-02-02] MEDS ORDERED: ALEN70TA3 PO (19:34)
[2020-02-02] MEDS ORDERED: MIRT-121 PO (19:34)
[2020-02-02] MEDS ORDERED: MELO-107 PO (19:34)
[2020-02-02] MEDS ORDERED: atrovent INH (19:34)
[2020-02-02] MEDS: ALBUTEROL SULFATE 8 GM HFA.AER.AD IH PRN ×6 (19:42→23:45)
[2020-02-02] MEDS: IPRATROPIUM BROMIDE 12.9 GM INHALER INH SCH (19:42)
[2020-02-02 19:44] LABS: ALANINE AMINOTRANSFERASE 19 U/L (14-59); ALKALINE PHOSPHATASE 87 U/L (50-136); ASPARTATE AMINOTRANSFERASE 15 U/L (15-37); BILIRUBIN,DIRECT < 0.1 mg/dL (0.0-0.2); BILIRUBIN,TOTAL 0.1 mg/dL (0.2-1.0); TOTAL PROTEIN, SERUM 6.8 g/dL (6.4-8.2)
[2020-02-02] MEDS ORDERED: methylPREDNISolone SOD SUCC 125 MG/2 ML VIAL IV ONE (20:00)
--- NOTE | 2020-02-02 20:38 | NUR ---
[employer] called on behalf of Dr. Noe.
[2020-02-02] MEDS ORDERED: MECLIZINE HCL 25 MG TABLET PO SCH (21:00)
[2020-02-02] MEDS ORDERED: MORPHINE SULFATE 2 MG/1 ML DISP.SYRIN IV PRN (21:15)
[2020-02-02] MEDS ORDERED: ACETAMINOPHEN 325 MG TABLET PO PRN (21:15)
[2020-02-02] MEDS ORDERED: Z GUARD REMEDY PASTE 57 GM TUBE TOP PRN (21:15)
[2020-02-02] MEDS ORDERED: ONDANSETRON 4 MG/2 ML VIAL IV PRN (21:15)
[2020-02-02] MEDS: HEPARIN SODIUM,PORCINE 5,000 UNITS/ML VIAL SQ SCH (21:53)
[2020-02-02] MEDS: MONTELUKAST SODIUM 10 MG TABLET PO SCH (21:54)
--- NOTE | 2020-02-02 22:42 | NUR ---
PT MOVED FROM [facility] TO , AWAITING FOR TELE BED, PT RESTING, RECEIVED ALL MEDS PER MD ORDERS.
[2020-02-02] MEDS: HYDROCODONE/APAP 5-325MG TABLET PO PRN (22:49)
--- NOTE | 2020-02-02 22:51 | NUR ---
PT C/O DIZZYNESS AND SORE THROAT, NORCO/ANTIVERT PO ADMIN. PT POSITIONED FOR COMFORT.
--- NOTE | 2020-02-02 23:30 | NUR ---
COVID SWABS SENT EARLIER. PT POSITIONED FOR COMFORT
--- NOTE | 2020-02-03 00:58 | NUR ---
SBAR REPORT TO FERNANDO RN, PTS MONITOR SHOWS NSR, PO2 ON RA=94 %. PT AWAITING TELE BED.
[2020-02-03] MEDS: IPRATROPIUM BROMIDE 12.9 GM INHALER INH SCH ×4 (01:07→20:01)
--- NOTE | 2020-02-03 03:12 | NUR ---
Report given to rn. Ward
--- NOTE | 2020-02-03 03:15 | NUR ---
Hands off report received from DALILA Rodriguez. Pt sleeping with NAD noted. Pend tele admission.
[2020-02-03] MEDS ORDERED: ALENDRONATE SODIUM 70 MG TABLET PO SCH (06:00)
--- NOTE | 2020-02-03 07:10 | NUR ---
Pt ambulated to restroom with walker, urine specimen collected and brought to lab.
[2020-02-03 07:55] LABS: BILIRUBIN,TOTAL 0.2 mg/dL (0.2-1.0); MAGNESIUM 1.9 mg/dL (1.8-2.4); PHOSPHOROUS 3.4 mg/dL (2.5-4.9); POTASSIUM 3.9 mmol/L (3.5-5.1); TOTAL PROTEIN, SERUM 7.2 g/dL (6.4-8.2)
[2020-02-03 07:57] LABS: BASOPHILS % (AUTO) 0.1 % (0.0-2.0); HEMATOCRIT 31.8 % (31.2-41.9); HEMOGLOBIN 10.9 g/dL (10.9-14.3); LYMPHOCYTES # (AUTO) 0.4 K/uL (20.0-40.0); LYMPHOCYTES % (AUTO) 8.7 % (20.5-51.5); MEAN CORPUSCULAR HEMOGLOBIN 26.6 uug (24.7-32.8); MEAN CORPUSCULAR HGB CONC 34 g/dL (32.3-35.6); MEAN CORPUSCULAR VOLUME 77.9 fL (75.5-95.3); MONOCYTES % (AUTO) 0.6 % (0.0-11.0); NEUTROPHILS # (AUTO) 4.5 K/uL (1.8-8.9); NEUTROPHILS % (AUTO) 90.6 % (38.5-71.5); PLATELET COUNT (AUTO) 465 K/uL (179-408); RED BLOOD CELL COUNT(AUTO) 4.09 MIL/uL (3.63-4.92)
[2020-02-03 08:03] LABS: *BILIRUBIN,URIN NEGATIVE (NEGATIVE); *BLOOD, URINE NEGATIVE (NEGATIVE); *CLARITY,URINE CLEAR (CLEAR); *COLOR,URINE YELLOW (YELLOW); *KETONES,URINE NEGATIVE (NEGATIVE); *UROBILINOGEN,URINE 0.2 E.U./dl (NORMAL); LEUKOCYTE ESTERASE ,URINE NEGATIVE (NEGATIVE); NITRITE, URINE NEGATIVE (NEGATIVE); PH,URINE 6.5 (5.0-8.0); UGLUCOSE NEGATIVE (NEGATIVE)
--- NOTE | 2020-02-03 08:20 | NUR ---
Pt sitting at bedside and eating breakfast, NAD.
[2020-02-03] MEDS ORDERED: BRIMONIDINE-P 0.1% OPHTH DROP 5 ML DROPS EACHEYE SCH (09:00)
[2020-02-03] MEDS: hydrALAZINE HCL 50 MG TABLET PO SCH ×3 (09:24→17:38)
[2020-02-03] MEDS: CALCIUM CARB/VITAMIN D 500MG-200UNITS TABLET PO SCH ×2 (09:25→17:38)
[2020-02-03] MEDS: AMLODIPINE 10 MG TABLET PO SCH (09:25)
[2020-02-03] MEDS: FLUTICASONE/VILANTEROL 1 EACH BLST.W.DEV INH SCH (09:26)
[2020-02-03] MEDS: VENLAFAXINE XR 75 MG TAB.ER.24H PO SCH (09:26)
[2020-02-03] MEDS: ATORVASTATIN 10 MG TABLET PO SCH (09:26)
[2020-02-03] MEDS ORDERED: methylPREDNISolone SOD SUCC 40 MG/ML VIAL ONE ×2 (09:36→21:07)
[2020-02-03] MEDS ORDERED: DOCUSATE SODIUM 100 MG CAPSULE PO ONE (09:36)
[2020-02-03] MEDS ORDERED: ASPIRIN 81 MG TAB.CHEW ONE (09:36)
[2020-02-03] MEDS ORDERED: CLOPIDOGREL 75 MG TABLET ONE (09:36)
[2020-02-03] MEDS ORDERED: HEPARIN SODIUM,PORCINE 5,000 UNITS/ML VIAL ONE ×2 (09:36→21:07)
[2020-02-03] MEDS: CLOPIDOGREL 75 MG TABLET PO SCH (09:43)
[2020-02-03] MEDS: DOCUSATE SODIUM 100 MG CAPSULE PO SCH (09:43)
[2020-02-03] MEDS: ASPIRIN 81 MG TAB.CHEW PO SCH (09:43)
[2020-02-03] MEDS: methylPREDNISolone SOD SUCC 40 MG/ML VIAL IV SCH ×2 (09:43→21:08)
[2020-02-03] MEDS: HEPARIN SODIUM,PORCINE 5,000 UNITS/ML VIAL SQ SCH ×2 (09:46→21:06)
--- NOTE | 2020-02-03 11:04 | NUR ---
ASSISSTED PT WITH BEDPAN, PT VOIDED 400ML. PERINEALHYGIENE COMFORT MEASURES PROVIDED.
--- NOTE | 2020-02-03 12:59 | NUR ---
LUNCH TRAY PROVIDED OR PT.
[2020-02-03] MEDS: BRIMONIDINE 0.2% OPHT DROP 10 ML BOTTLE EACHEYE SCH ×2 (17:00→17:39)
[2020-02-03] MEDS ORDERED: MIRTAZAPINE 15 MG TABLET ONE (18:12)
[2020-02-03] MEDS ORDERED: QUETIAPINE FUMARATE 25 MG TABLET ONE (18:12)
[2020-02-03] MEDS: QUETIAPINE FUMARATE 25 MG TABLET PO SCH (18:15)
[2020-02-03] MEDS: MIRTAZAPINE 15 MG TABLET PO SCH (18:15)
--- NOTE | 2020-02-03 18:30 | NUR ---
Pt eating dinner, NAD noted.
--- NOTE | 2020-02-03 19:15 | NUR ---
RECEIVED BEDSIDE SBAR REPORTFRRALEIGH PEDROZA RN. PT RESTING, AWAITING FOR TELE BED
--- NOTE | 2020-02-03 19:30 | NUR ---
RECEIVED SBAR REPORT FROM BUTCH RN, PT RESTING EYES CLOSED AWAITING TELE BED.
[2020-02-03] MEDS ORDERED: MONTELUKAST SODIUM 10 MG TABLET ONE (21:06)
[2020-02-03] MEDS: MONTELUKAST SODIUM 10 MG TABLET PO SCH (21:07)
--- NOTE | 2020-02-03 21:09 | NUR ---
SINGULAR PO/HEPARIN SQ AND SOLUMEDROAL ADMINISTERED PER MD ORDERS, PT POSITIONED FOR COMFORT.
--- NOTE | 2020-02-03 23:55 | NUR ---
PT SLEEPING ,NO DISTRESS NOTED, NSR ON MONITOR.
[2020-02-04] MEDS: IPRATROPIUM BROMIDE 12.9 GM INHALER INH SCH ×4 (00:50→20:13)
--- NOTE | 2020-02-04 05:07 | NUR ---
PT SLEEPING EYES CLOSED, MONITOR SHOWS NSR.
[2020-02-04 06:16] LABS: BASOPHILS % (AUTO) 0.1 % (0.0-2.0); HEMATOCRIT 29.5 % (31.2-41.9); HEMOGLOBIN 9.8 g/dL (10.9-14.3); LYMPHOCYTES # (AUTO) 0.6 K/uL (20.0-40.0); LYMPHOCYTES % (AUTO) 8.8 % (20.5-51.5); MEAN CORPUSCULAR HGB CONC 33 g/dL (32.3-35.6); MONOCYTES # (AUTO) 0.1 K/uL (2.0-10.0); NEUTROPHILS # (AUTO) 5.7 K/uL (1.8-8.9); NEUTROPHILS % (AUTO) 89.1 % (38.5-71.5); PLATELET COUNT (AUTO) 458 K/uL (179-408); RED BLOOD CELL COUNT(AUTO) 3.78 MIL/uL (3.63-4.92); WHITE BLOOD COUNT (AUTO) 6.5 K/uL (3.8-11.8)
[2020-02-04 06:25] LABS: CREATININE 1.1 mg/dL (0.6-1.3); PHOSPHOROUS 4.1 mg/dL (2.5-4.9); POTASSIUM 4.7 mmol/L (3.5-5.1)
--- NOTE | 2020-02-04 07:16 | NUR ---
SBAR REPORT TO BUTCH RN, PT SLEEPING, EYES CLOSED, MONITOR SHOWS NSR.
[2020-02-04] MEDS: FLUTICASONE/VILANTEROL 1 EACH BLST.W.DEV INH SCH (09:21)
[2020-02-04] MEDS: BRIMONIDINE 0.2% OPHT DROP 10 ML BOTTLE EACHEYE SCH ×2 (09:23→17:40)
[2020-02-04] MEDS: VENLAFAXINE XR 75 MG TAB.ER.24H PO SCH (09:24)
[2020-02-04] MEDS: methylPREDNISolone SOD SUCC 40 MG/ML VIAL IV SCH ×2 (09:24→20:20)
[2020-02-04] MEDS: CALCIUM CARB/VITAMIN D 500MG-200UNITS TABLET PO SCH ×2 (09:24→17:37)
[2020-02-04] MEDS: DOCUSATE SODIUM 100 MG CAPSULE PO SCH (09:24)
[2020-02-04] MEDS: ATORVASTATIN 10 MG TABLET PO SCH (09:24)
[2020-02-04] MEDS: ASPIRIN 81 MG TAB.CHEW PO SCH (09:24)
[2020-02-04] MEDS ORDERED: ASPIRIN 81 MG TAB.CHEW ONE (09:26)
[2020-02-04] MEDS ORDERED: DOCUSATE SODIUM 100 MG CAPSULE PO ONE (09:26)
[2020-02-04] MEDS ORDERED: methylPREDNISolone SOD SUCC 40 MG/ML VIAL ONE (09:26)
[2020-02-04] MEDS: hydrALAZINE HCL 50 MG TABLET PO SCH ×3 (09:35→17:40)
[2020-02-04] MEDS: AMLODIPINE 10 MG TABLET PO SCH (09:35)
[2020-02-04] MEDS: CLOPIDOGREL 75 MG TABLET PO SCH (09:39)
[2020-02-04] MEDS ORDERED: HEPARIN SODIUM,PORCINE 5,000 UNITS/ML VIAL ONE (09:46)
[2020-02-04] MEDS: HEPARIN SODIUM,PORCINE 5,000 UNITS/ML VIAL SQ SCH ×2 (09:47→20:24)
[2020-02-04] MEDS ORDERED: CLOPIDOGREL 75 MG TABLET ONE (09:55)
--- NOTE | 2020-02-04 12:30 | NUR ---
PT FIFINSHE LUNCH TRAY WITH GOOD APETITE.
--- NOTE | 2020-02-04 12:55 | NUR ---
PT AMBULATED TO BATHROOM USING OWN WALKER WITH ASSISSTANCE
--- NOTE | 2020-02-04 14:20 | NUR ---
transfered pt to floor in stable condition via wheelchair.
--- NOTE | 2020-02-04 15:00 | NUR ---
RECEIVED PATIENT FROM THE ER. PATIENT AOX4 GREENLANDIC SPEAKER. DENIES PAIN, OR SOB AT THIS TIME. SAFETY AND FALL PREVENTION IN PLACE. WILL CONTINUE TO MONITOR. ON M/S STATUS INPATIENT.
[2020-02-04 15:40] VITALS: BP 117/47
[2020-02-04] MEDS: MIRTAZAPINE 15 MG TABLET PO SCH (17:39)
[2020-02-04] MEDS: QUETIAPINE FUMARATE 25 MG TABLET PO SCH (17:39)
--- NOTE | 2020-02-04 19:30 | NUR ---
Pt received sleeping in bed. Does not appear to be in any acute distress. On 2L NC with no s/s of respiratory difficulties. No other issues or concerns at this time.
[2020-02-04] MEDS: MONTELUKAST SODIUM 10 MG TABLET PO SCH (20:20)
[2020-02-04 20:31] VITALS: BP 106/48
--- NOTE | 2020-02-04 21:42 | NUR ---
Janes from lab notified me of negative PCR test results
[2020-02-05] MEDS: IPRATROPIUM BROMIDE 12.9 GM INHALER INH SCH ×2 (00:45→07:35)
--- NOTE | 2020-02-05 00:50 | NUR ---
RECD PT IN BED, RESTING QUIETLY, NO ACUTE DISTRESS NOTED,OXYGEN INHALATION ON AT 3L PER MIN VIA NA, NEEDS ATTENDED TO. SLEPT AT SHORT INTERVALS.VOIDED FREELY WELL,KEPT DRY AND CLEAN,CALL LITE W/I REACH.
[2020-02-05] MEDS: IPRATROPIUM BROMIDE 0.5 MG/2.5 ML NEBU NEB PRN ×2 (00:57→07:59)
[2020-02-05] MEDS: ALBUTEROL SULFATE 2.5 MG/ 0.5 ML NEBU NEB PRN ×3 (00:57→14:03)
--- NOTE | 2020-02-05 04:11 | NUR ---
REPOSITIONED FOR COMFORT, NO COMPLAINTS PRESENTED.SLEPT AT LONG INTERVALS.
[2020-02-05 05:32] VITALS: BP 144/59
[2020-02-05] MEDS: IPRATROPIUM BROMIDE 0.5 MG/2.5 ML NEBU NEB SCH ×2 (08:30→14:03)
[2020-02-05] MEDS ORDERED: ALENDRONATE SODIUM 70 MG TABLET PO SCH (08:45)
[2020-02-05] MEDS: methylPREDNISolone SOD SUCC 40 MG/ML VIAL IV SCH (08:52)
[2020-02-05] MEDS: DOCUSATE SODIUM 100 MG CAPSULE PO SCH (08:55)
[2020-02-05] MEDS: CLOPIDOGREL 75 MG TABLET PO SCH (08:55)
[2020-02-05] MEDS: CALCIUM CARB/VITAMIN D 500MG-200UNITS TABLET PO SCH (08:55)
[2020-02-05] MEDS: hydrALAZINE HCL 50 MG TABLET PO SCH ×2 (08:55→13:26)
[2020-02-05] MEDS: ASPIRIN 81 MG TAB.CHEW PO SCH (08:55)
[2020-02-05] MEDS: HEPARIN SODIUM,PORCINE 5,000 UNITS/ML VIAL SQ SCH (08:55)
[2020-02-05] MEDS: VENLAFAXINE XR 75 MG TAB.ER.24H PO SCH (08:55)
[2020-02-05] MEDS: AMLODIPINE 10 MG TABLET PO SCH (08:56)
[2020-02-05] MEDS: FLUTICASONE/VILANTEROL 1 EACH BLST.W.DEV INH SCH (08:57)
[2020-02-05] MEDS: BRIMONIDINE 0.2% OPHT DROP 10 ML BOTTLE EACHEYE SCH (09:00)
[2020-02-05] MEDS ORDERED: ALBU18HF2 INH (11:24)
[2020-02-05] MEDS ORDERED: METH4TAB3 PO (11:24)
[2020-02-05 11:39] VITALS: BP 139/60
[2020-02-05] MEDS: HYDROCODONE/APAP 5-325MG TABLET PO PRN (13:28)
[2020-02-05 15:14] VITALS: BP 120/50
--- NOTE | 2020-02-05 16:50 | NUR ---
DISCHARGED VIA W/C, ACCOMPANIED BY ANNA LEMUS TO DAUGHTER IN AUTO. NO C/O DISCOMFORT.
[2020-02-05] MEDS ORDERED: ATORVASTATIN 10 MG TABLET PO SCH (21:00)
== END 2020-02-05 16:50 | disposition home health service (06) | DRG 190 ==
LOC: ER 18:00 → TRANSITION 23:28 → MEDSURG3 02-04 14:26
PROVIDERS: ADMIT Nurse Practitioner Acute Care; ATTEND Nurse Practitioner Acute Care
DX: J44.1 Chronic obstructive pulmonary disease with (acute) exacerbation (principal); J96.01 Acute respiratory failure with hypoxia; N17.0 Acute kidney failure with tubular necrosis; I21.A1 Myocardial infarction type 2; E22.2 Syndrome of inappropriate secretion of antidiuretic hormone; D68.59 Other primary thrombophilia; E11.40 Type 2 diabetes mellitus with diabetic neuropathy, unspecified; I11.0 Hypertensive heart disease with heart failure; I50.9 Heart failure, unspecified; D64.9 Anemia, unspecified; M81.0 Age-related osteoporosis without current pathological fracture; K21.9 Gastro-esophageal reflux disease without esophagitis; E78.5 Hyperlipidemia, unspecified; F32.9 Major depressive disorder, single episode, unspecified; F03.90 Unspecified dementia, unspecified severity, without behavioral disturbance, psychotic disturbance, mood disturbance, and anxiety
CPT/HCPCS: 36415; 70030-TC; 71045; 83605; 83735; 84100; 85025; 85730; 87040; 87086; 93005; 94640; A4663; G0378; J1644; J2920; J2930; J3535; J3590; J8597; U0003

== ENCOUNTER 2020-04-15 12:00 | Emergency (ER) | payer MEDICARE, OTHER ==
[~2020-04-15] VITALS: Ht 152.4 cm; Wt 55.3 kg
[~2020-04-15 12:00] MED LIST changes: +ALBU18HF2 INH; +ALEN70TA3 PO; -ALEN70TA69 PO; +ALEN70TA80 PO; +CLOP75TA33 PO; +DICL100G16 TP; +FLUT1DIS28 INH; +IPRA4AER IH; +MELO-107 PO; +METH4TAB3 PO; +MIRT-121 PO; +PANT40TA49 PO; +QUET50TA PO; +VENL75CA62 PO; +atrovent INH
[2020-04-15] MEDS ORDERED: ALBUTEROL SULFATE 2.5 MG/3 ML NEBU NEB ONE (12:30)
[2020-04-15] MEDS ORDERED: IV NORMAL SALINE 500 ML BAG IV ONE (12:30)
[2020-04-15] MEDS ORDERED: IPRATROPIUM BROMIDE 0.5 MG/2.5 ML NEBU NEB ONE (12:30)
[2020-04-15 12:34] LABS: BASOPHILS % (AUTO) 0.6 % (0.0-2.0); EOSINOPHILS # (AUTO) 0.1 K/uL (0.0-0.7); EOSINOPHILS % (AUTO) 1.1 % (0.0-7.0); HEMATOCRIT 35.1 % (31.2-41.9); HEMOGLOBIN 11.8 g/dL (10.9-14.3); LYMPHOCYTES # (AUTO) 0.8 K/uL (20.0-40.0); LYMPHOCYTES % (AUTO) 13.5 % (20.5-51.5); MEAN CORPUSCULAR HEMOGLOBIN 26.9 uug (24.7-32.8); MEAN CORPUSCULAR HGB CONC 34 g/dL (32.3-35.6); MEAN CORPUSCULAR VOLUME 79.7 fL (75.5-95.3); MONOCYTES # (AUTO) 0.6 K/uL (2.0-10.0); MONOCYTES % (AUTO) 9.6 % (0.0-11.0); NEUTROPHILS # (AUTO) 4.5 K/uL (1.8-8.9); NEUTROPHILS % (AUTO) 75.2 % (38.5-71.5); PLATELET COUNT (AUTO) 402 K/uL (179-408)
[2020-04-15 12:44] LABS: POTASSIUM 4.1 mmol/L (3.5-5.1)
[2020-04-15] MEDS ORDERED: IPRATROPIUM BROMIDE 0.5 MG/2.5 ML NEBU ONE (12:44)
[2020-04-15] MEDS ORDERED: ALBUTEROL SULFATE 2.5 MG/ 0.5 ML NEBU ONE (12:44)
[2020-04-15 12:49] LABS: BILIRUBIN,DIRECT 0.1 mg/dL (0.0-0.2); BILIRUBIN,TOTAL 0.3 mg/dL (0.2-1.0)
[2020-04-15] MEDS ORDERED: CYAN100T44 PO (12:51)
[2020-04-15] MEDS ORDERED: BUDESONIDE IH (12:51)
[2020-04-15 13:42] LABS: *BILIRUBIN,URIN NEGATIVE (NEGATIVE); *CLARITY,URINE CLEAR (CLEAR); *COLOR,URINE YELLOW (YELLOW); *KETONES,URINE NEGATIVE (NEGATIVE); *UROBILINOGEN,URINE 0.2 E.U./dl (NORMAL); LEUKOCYTE ESTERASE ,URINE NEGATIVE (NEGATIVE); NITRITE, URINE NEGATIVE (NEGATIVE); UGLUCOSE NEGATIVE (NEGATIVE)
[2020-04-15 13:45] LABS: *BLOOD, URINE TRACE (NEGATIVE)
[2020-04-15 14:19] LABS: BACTERIA,URINE NONE SEEN /HPF (NONE SEEN); SQUAMOUS EPITHELIAL CELL,UR NONE SEEN /HPF (NONE SEEN); WBC,URINE 0-3 /HPF (0-3)
[2020-04-15] MEDS ORDERED: methylPREDNISolone SOD SUCC 125 MG/2 ML VIAL IV ONE (15:15)
[2020-04-15] MEDS ORDERED: methylPREDNISolone SOD SUCC 125 MG/2 ML VIAL ONE (15:21)
--- NOTE | 2020-04-15 16:16 | NUR ---
Patient discharged to home in stable condition. Written and verbal after care instructions given. Patient daughtrer verbalizes understanding of instructions. Stressed follow up or return to ER for worsening s/s. pt breathing normally, lungs clear, no sign of distress.copy of all the studies provided to the pt daughter. pt d/tony smiling.
== END 2020-04-15 16:18 | disposition home or self-care (01) ==
LOC: ER 12:00
DX: J44.9 Chronic obstructive pulmonary disease, unspecified (principal); R91.8 Other nonspecific abnormal finding of lung field; Z20.822 Contact with and (suspected) exposure to COVID-19; Z79.02 Long term (current) use of antithrombotics/antiplatelets; I11.9 Hypertensive heart disease without heart failure; E22.2 Syndrome of inappropriate secretion of antidiuretic hormone; K21.9 Gastro-esophageal reflux disease without esophagitis; E78.5 Hyperlipidemia, unspecified; F03.90 Unspecified dementia, unspecified severity, without behavioral disturbance, psychotic disturbance, mood disturbance, and anxiety; M81.0 Age-related osteoporosis without current pathological fracture; Z79.899 Other long term (current) drug therapy; Z88.0 Allergy status to penicillin; Z91.018 Allergy to other foods; I44.4 Left anterior fascicular block
CPT/HCPCS: 36415; 71045; 80048; 80076; 81001; 83605; 83690; 83880; 84484; 85025; 85730; 87040; 87086; 87426; 93005; 94640; 96374; 99285; J2930; U0003; 70030-TC; A4663; C1758; J3590; J7040

== ENCOUNTER 2020-04-24 15:12 | Inpatient (IN) | payer MEDICARE, OTHER ==
[~2020-04-24] VITALS: Ht 144.8 cm; Wt 54.4 kg
[2020-04-24 00:20] VITALS: BP 113/78
[~2020-04-24 15:12] MED LIST changes: -ALBU18HF2 INH; -ALEN70TA80 PO; +BUDESONIDE IH; +CYAN100T44 PO; -FLUT1DIS28 IH; -FLUT1DIS28 INH; -IPRA4AER IH; -MECL-159 PO; -MELO-107 PO; -METH4TAB3 PO; -MIRT-121 PO; -ONDA-104 PO; -QUET50TA PO; -VENL75CA62 PO; -atrovent INH; -diclofenac gel
--- NOTE | 2020-04-24 15:35 | NUR ---
Dr Nieto at bedside for MSE. Pt came in for SOB, repositioned in bed, to high morocho's position. Saturating at 96% on RA but with visible work of breath and tachypnea at 25 bpm, placed on O2 2 lPM for comfort and instructed to do deep breathing exercises. SPO2 increased to 99%, and respirations slowed down to 19-21 bpm.
[2020-04-24] MEDS ORDERED: methylPREDNISolone SOD SUCC 125 MG/2 ML VIAL IV ONE (15:45)
[2020-04-24] MEDS ORDERED: IPRATROPIUM BROMIDE 0.5 MG/2.5 ML NEBU NEB ONE (15:45)
[2020-04-24] MEDS ORDERED: ALBUTEROL SULFATE 2.5 MG/3 ML NEBU NEB ONE (15:45)
[2020-04-24] MEDS ORDERED: ALBUTEROL SULFATE 2.5 MG/3 ML NEBU ONE (15:51)
[2020-04-24] MEDS ORDERED: IPRATROPIUM BROMIDE 0.5 MG/2.5 ML NEBU ONE (15:52)
[2020-04-24] MEDS ORDERED: ALBUTEROL SULFATE 2.5 MG/ 0.5 ML NEBU ONE (15:52)
[2020-04-24] MEDS ORDERED: methylPREDNISolone SOD SUCC 125 MG/2 ML VIAL ONE (16:09)
[2020-04-24] MEDS ORDERED: CEFEPIME HCL 1 G in IV DEXTROSE 5% 50 ML IV ONE (16:15)
[2020-04-24] MEDS ORDERED: levoFLOXacin 500 MG/D5W 100ML PIGGYBACK IV ONE (16:15)
[2020-04-24] MEDS ORDERED: VANCOMYCIN IV 1,000 MG in IV DEXTROSE 5% 250 ML IV ONE (16:15)
--- NOTE | 2020-04-24 16:30 | NUR ---
Pt appears to be more comfortable now after initial breathing treatments.
[2020-04-24 16:35] LABS: CREATININE 1.2 mg/dL (0.6-1.3); POTASSIUM 3.5 mmol/L (3.5-5.1)
[2020-04-24 16:36] LABS: BASOPHILS % (AUTO) 0.4 % (0.0-2.0); EOSINOPHILS % (AUTO) 0.3 % (0.0-7.0); HEMOGLOBIN 11.3 g/dL (10.9-14.3); LYMPHOCYTES # (AUTO) 1.9 K/uL (20.0-40.0); LYMPHOCYTES % (AUTO) 20.4 % (20.5-51.5); MEAN CORPUSCULAR HEMOGLOBIN 26.7 uug (24.7-32.8); MEAN CORPUSCULAR HGB CONC 33 g/dL (32.3-35.6); MEAN CORPUSCULAR VOLUME 80.6 fL (75.5-95.3); MONOCYTES # (AUTO) 0.6 K/uL (2.0-10.0); NEUTROPHILS # (AUTO) 6.8 K/uL (1.8-8.9); NEUTROPHILS % (AUTO) 72.9 % (38.5-71.5); PLATELET COUNT (AUTO) 411 K/uL (179-408); RED BLOOD CELL COUNT(AUTO) 4.22 MIL/uL (3.63-4.92); WHITE BLOOD COUNT (AUTO) 9.4 K/uL (3.8-11.8)
[2020-04-24 16:48] LABS: BILIRUBIN,DIRECT 0.1 mg/dL (0.0-0.2); BILIRUBIN,TOTAL 0.2 mg/dL (0.2-1.0); TOTAL PROTEIN, SERUM 6.7 g/dL (6.4-8.2)
[2020-04-24] MEDS ORDERED: CEFEPIME HCL 1 G VIAL ONE (16:55)
[2020-04-24] MEDS ORDERED: levoFLOXacin 500 MG/D5W 100 ML ONE (16:56)
[2020-04-24] MEDS ORDERED: VANCOMYCIN IV 200 ML ONE (16:56)
[2020-04-24 17:04] LABS: MAGNESIUM 1.7 mg/dL (1.8-2.4)
[2020-04-24 17:05] LABS: THYROID STIMULATING HORMONE 1.78 mIU/mL (0.358-3.740)
--- NOTE | 2020-04-24 17:07 | NUR ---
Dr Izquierdo called for panel call, per [facility] answering service, Dr Rader is oncall and will call us back.
--- NOTE | 2020-04-24 17:19 | NUR ---
DR Rader spoke with Dr Nieto, accepted for Tele admission, Dx: Pneumonia, belongings list completed.
--- NOTE | 2020-04-24 17:22 | NUR ---
First call for report, on hold.
[2020-04-24] MEDS ORDERED: MAGNESIUM SULFATE/D5W 100 ML IV SCH (17:30)
--- NOTE | 2020-04-24 17:31 | NUR ---
Lucas RN will call me back, per learning design specialist. Pt ready for admission, resting in bed, no signs of distress at this time.
[2020-04-24] MEDS ORDERED: MAGNESIUM SULFATE/D5W 100 ML ONE (17:39)
--- NOTE | 2020-04-24 17:50 | NUR ---
Report given to Lucas CONNER.
--- NOTE | 2020-04-24 18:20 | NUR ---
Administered all the ATB in the ER and Magnesium, started Vancomycin 1 G at this time. Unable to start another line, continued to use R AC 22 G PIV.
--- NOTE | 2020-04-24 18:30 | NUR ---
Sent patient up to the Telemetry floor via gurney, with all her belongings including her walker, and her dentures upper/lower in her bag. Warm handoff to Lucas CONNER, and emphasized importance of finishing Vancomycin that was started in the ED. Pt stil on O2 2LPM, saturating at 99%, and HR continues to be 110 via Tele monitor, sinus tachycardia. Otherwise stable and verbally responsive.
[2020-04-24 18:57] VITALS: BP 131/48
--- NOTE | 2020-04-24 19:00 | NUR ---
ADMITTED PATIENT ON TELE FLOOR UNDER THE CARE OF DR. COLLADO. PATIENT ALERT SPEAK OCCITAN BUT UNDERSTAND CITIZEN OF [place]. PATIENT ON 2 LPM NC DUE SHORTNESS OF BREATH. PATIENT HAS SACRUM REDNESS, ASSISTED WITH TOILETING. PATIENT HAS NO SOB NO CHEST PAIN, TELE MONITOR SINUS TACHY, SINUS RHYTHM. PATIENT COMPLAIN OF HEADACHE, WILL MEDICATE ORDERED. CONT TO MONITOR.
[2020-04-24 20:28] VITALS: BP 126/56
[2020-04-24] MEDS ORDERED: ACETAMINOPHEN 325 MG TABLET PO PRN (20:30)
[2020-04-24] MEDS: MONTELUKAST SODIUM 10 MG TABLET PO SCH (21:13)
[2020-04-24] MEDS: MIRTAZAPINE 15 MG TABLET PO SCH (21:13)
[2020-04-24] MEDS: levoFLOXacin 500 MG TABLET PO SCH (23:25)
[2020-04-25 04:24] VITALS: BP 127/65
[2020-04-25] MEDS: CLOPIDOGREL 75 MG TABLET PO SCH (08:15)
[2020-04-25] MEDS: CALCIUM CARB/VITAMIN D 500MG-200UNITS TABLET PO SCH ×2 (08:15→16:16)
[2020-04-25] MEDS: AMLODIPINE 10 MG TABLET PO SCH (08:15)
[2020-04-25] MEDS: METOCLOPRAMIDE HCL 10 MG TABLET PO SCH ×3 (08:15→16:16)
[2020-04-25] MEDS: PANTOPRAZOLE SODIUM 40 MG TABLET.DR PO SCH (08:15)
[2020-04-25] MEDS: ATORVASTATIN 10 MG TABLET PO SCH (08:15)
[2020-04-25] MEDS: CICLOPIROX 0.77% CREAM 30 GM TUBE TP SCH ×2 (08:21→16:16)
[2020-04-25] MEDS: Z GUARD REMEDY PASTE 57 GM TUBE TOP SCH ×2 (08:22→20:31)
[2020-04-25 08:28] VITALS: BP 129/51
[2020-04-25] MEDS ORDERED: ALBUTEROL SULFATE 2.5 MG/ 0.5 ML NEBU IH SCH (09:00)
[2020-04-25] MEDS ORDERED: BRIMONIDINE-P 0.1% OPHTH DROP 5 ML DROPS EACHEYE SCH (09:00)
[2020-04-25] MEDS ORDERED: CYANOCOBALAMIN 100 MCG TABLET PO SCH (09:00)
[2020-04-25] MEDS ORDERED: ALBUTEROL SULFATE 2.5 MG/3 ML NEBU NEB PRN (09:45)
[2020-04-25] MEDS ORDERED: IPRATROPIUM BROMIDE 0.5 MG/2.5 ML NEBU NEB PRN (09:45)
[2020-04-25] MEDS: methylPREDNISolone SOD SUCC 40 MG/ML VIAL IV SCH ×3 (10:28→22:44)
[2020-04-25] MEDS ORDERED: IV NORMAL SALINE 250 ML IV PRN (10:45)
[2020-04-25 11:30] VITALS: BP 138/44
[2020-04-25] MEDS: IPRATROPIUM BROMIDE 0.5 MG/2.5 ML NEBU NEB SCH ×3 (12:52→20:19)
[2020-04-25] MEDS: ALBUTEROL SULFATE 2.5 MG/ 0.5 ML NEBU IH SCH ×3 (12:53→20:19)
[2020-04-25 15:33] VITALS: BP 126/62
--- NOTE | 2020-04-25 18:21 | NUR ---
patient is alert, oriented x3, Greenlandic speaking, stable on continuos 2 liter o2 via nasal canula, audible wheezing and some sob noted administrative processor, dr byrnes made aware with new orders, noted, patient did well after getting breathing tx and steroids as ordered however mild sob noted upon exertion, but manageable,no acute distress noted, able to eat herself, and tolerate it well. continue to monitor
--- NOTE | 2020-04-25 20:00 | NUR ---
Received patient in bed. AAOX3, Italian speaking. No s/s of acute distress noted at this time. Patient denies SOB, on 2L NC O2 @ 99%. Tele monitor in place, sinus tach. Safety measures in place, bed locked and alarm on.
[2020-04-25 20:24] VITALS: BP 125/60
[2020-04-25] MEDS: levoFLOXacin 500 MG TABLET PO SCH (20:31)
[2020-04-25] MEDS: MIRTAZAPINE 15 MG TABLET PO SCH (20:31)
[2020-04-25] MEDS: MONTELUKAST SODIUM 10 MG TABLET PO SCH (20:31)
[2020-04-26 00:12] VITALS: BP 152/50
[2020-04-26 04:24] VITALS: BP 149/67
[2020-04-26] MEDS: methylPREDNISolone SOD SUCC 40 MG/ML VIAL IV SCH ×3 (05:36→21:30)
[2020-04-26] MEDS ORDERED: ALENDRONATE SODIUM 70 MG TABLET PO SCH (06:00)
[2020-04-26 06:12] LABS: ABG BASE EXCESS 2.4 mmol/L; ABG HCO3 26.7 mmol/L; ABG PCO2 40.1 mmHg (35.0-45.0); ABG PH 7.441 (7.350-7.450); ABG PO2 80.5 mmHg (75.0-100.0); ABG SITE RIGHT RADIAL; COHb 0.9 % (0.5-1.5); MetHb 0.3 % (0.0-1.5); VENT MODE VENT - A/C
[2020-04-26 06:53] LABS: BASOPHILS % (AUTO) 0.1 % (0.0-2.0); HEMATOCRIT 31.9 % (31.2-41.9); LYMPHOCYTES # (AUTO) 0.8 K/uL (20.0-40.0); LYMPHOCYTES % (AUTO) 9.1 % (20.5-51.5); MEAN CORPUSCULAR HEMOGLOBIN 27.4 uug (24.7-32.8); MEAN CORPUSCULAR HGB CONC 35 g/dL (32.3-35.6); MEAN CORPUSCULAR VOLUME 79.4 fL (75.5-95.3); MONOCYTES # (AUTO) 0.3 K/uL (2.0-10.0); MONOCYTES % (AUTO) 3.3 % (0.0-11.0); NEUTROPHILS # (AUTO) 7.8 K/uL (1.8-8.9); NEUTROPHILS % (AUTO) 87.5 % (38.5-71.5); PLATELET COUNT (AUTO) 405 K/uL (179-408); RED BLOOD CELL COUNT(AUTO) 4.02 MIL/uL (3.63-4.92); WHITE BLOOD COUNT (AUTO) 8.9 K/uL (3.8-11.8)
[2020-04-26 07:03] LABS: BILIRUBIN,TOTAL 0.3 mg/dL (0.2-1.0); PHOSPHOROUS 3.8 mg/dL (2.5-4.9); POTASSIUM 3.8 mmol/L (3.5-5.1); TOTAL PROTEIN, SERUM 6.9 g/dL (6.4-8.2)
--- NOTE | 2020-04-26 08:00 | NUR ---
Awake, alert, oriented x 3, pleasant. O2 at 2L/NC, not in distress.
[2020-04-26] MEDS: ALBUTEROL SULFATE 2.5 MG/ 0.5 ML NEBU IH SCH ×4 (08:14→19:47)
[2020-04-26] MEDS: IPRATROPIUM BROMIDE 0.5 MG/2.5 ML NEBU NEB SCH ×4 (08:14→19:47)
[2020-04-26] MEDS: PANTOPRAZOLE SODIUM 40 MG TABLET.DR PO SCH (08:57)
[2020-04-26] MEDS: CALCIUM CARB/VITAMIN D 500MG-200UNITS TABLET PO SCH ×2 (08:57→18:02)
[2020-04-26] MEDS: Z GUARD REMEDY PASTE 57 GM TUBE TOP SCH ×2 (08:57→20:40)
[2020-04-26] MEDS: ATORVASTATIN 10 MG TABLET PO SCH (08:57)
[2020-04-26] MEDS: METOCLOPRAMIDE HCL 10 MG TABLET PO SCH ×3 (08:57→18:02)
[2020-04-26] MEDS: CLOPIDOGREL 75 MG TABLET PO SCH (08:57)
[2020-04-26] MEDS: CICLOPIROX 0.77% CREAM 30 GM TUBE TP SCH ×2 (08:58→18:02)
[2020-04-26] MEDS: AMLODIPINE 10 MG TABLET PO SCH (09:06)
[2020-04-26] MEDS ORDERED: CYANOCOBALAMIN 1,000 MCG TABLET PO SCH (09:21)
[2020-04-26] MEDS: CYANOCOBALAMIN 1,000 MCG TABLET PO SCH (09:29)
--- NOTE | 2020-04-26 11:44 | NUR ---
WOUND CARE CONSULT: PT PRESENTS WITH SKIN STAINING TO INNER BUTTOCKS AND BLANCHABLE REDNESS TO SACRUM, PRESENT ON ADMISSION. PT DEMONSTRATES ABILITY TO TURN AND REPOSITION IN BED BUT IS INCONTINENT. RECOMMENDATIONS MADE FOR SKIN PROTECTION. DISCUSSED WITH NURSING STAFF. MD IN AGREEMENT WITH PLAN OF CARE.
[2020-04-26 12:20] VITALS: BP 139/56
--- NOTE | 2020-04-26 13:30 | NUR ---
Bed bath given. Repositioned comfortably
[2020-04-26 15:25] VITALS: BP 129/47
--- NOTE | 2020-04-26 18:18 | NUR ---
Eating fairly. Room air with 99% O2 sat, not in distress
[2020-04-26 19:56] VITALS: BP 127/55
[2020-04-26] MEDS: MONTELUKAST SODIUM 10 MG TABLET PO SCH (20:40)
[2020-04-26] MEDS: levoFLOXacin 500 MG TABLET PO SCH (20:40)
[2020-04-26] MEDS: MIRTAZAPINE 15 MG TABLET PO SCH (20:40)
[2020-04-26] MEDS ORDERED: MELATONIN 3 MG TABLET PO PRN (22:45)
[2020-04-26] MEDS ORDERED: ZOLPIDEM 5 MG TABLET PO PRN (22:45)
[2020-04-27 00:40] VITALS: BP 130/51
[2020-04-27 05:35] VITALS: BP 140/57
[2020-04-27] MEDS: methylPREDNISolone SOD SUCC 40 MG/ML VIAL IV SCH ×3 (05:59→21:26)
--- NOTE | 2020-04-27 06:32 | NUR ---
PATIENT RESTING IN BED. SLEPT WELL THROUGHOUT THE NIGHT. ON TELE SR. VSS. CALL LIGHT IN REACH. WILL CONTINUE TO MONITOR AND ASSESS.
[2020-04-27] MEDS: IPRATROPIUM BROMIDE 0.5 MG/2.5 ML NEBU NEB SCH ×4 (07:22→19:38)
[2020-04-27] MEDS: ALBUTEROL SULFATE 2.5 MG/ 0.5 ML NEBU IH SCH ×4 (07:22→19:38)
--- NOTE | 2020-04-27 07:30 | NUR ---
Awake, alert, oriented x 3, Sami speaking. Room air, not in distress.
[2020-04-27] MEDS: AMLODIPINE 10 MG TABLET PO SCH (08:43)
[2020-04-27] MEDS: CALCIUM CARB/VITAMIN D 500MG-200UNITS TABLET PO SCH ×2 (08:43→16:41)
[2020-04-27] MEDS: ATORVASTATIN 10 MG TABLET PO SCH (08:43)
[2020-04-27] MEDS: CLOPIDOGREL 75 MG TABLET PO SCH (08:43)
[2020-04-27] MEDS: PANTOPRAZOLE SODIUM 40 MG TABLET.DR PO SCH (08:44)
[2020-04-27] MEDS: METOCLOPRAMIDE HCL 10 MG TABLET PO SCH ×3 (08:44→16:41)
[2020-04-27] MEDS: CICLOPIROX 0.77% CREAM 30 GM TUBE TP SCH ×2 (08:44→16:41)
[2020-04-27] MEDS: CYANOCOBALAMIN 1,000 MCG TABLET PO SCH (08:44)
[2020-04-27] MEDS: Z GUARD REMEDY PASTE 57 GM TUBE TOP SCH ×2 (08:44→21:23)
[2020-04-27 12:00] VITALS: BP 133/52
--- NOTE | 2020-04-27 13:00 | NUR ---
Eating fairly. Had BM to large amount stool.
[2020-04-27 15:11] VITALS: BP 128/56
--- NOTE | 2020-04-27 18:12 | NUR ---
Room air maintained with O2 sat of 95%, not in distress.
[2020-04-27 21:00] VITALS: BP 121/40
[2020-04-27] MEDS: levoFLOXacin 500 MG TABLET PO SCH (21:22)
[2020-04-27] MEDS: MIRTAZAPINE 15 MG TABLET PO SCH (21:23)
[2020-04-27] MEDS: MONTELUKAST SODIUM 10 MG TABLET PO SCH (21:23)
[2020-04-28 00:30] VITALS: BP 141/57
--- NOTE | 2020-04-28 01:14 | NUR ---
Received patient in bed. AAOX3, Kazakh speaking. No s/s of acute distress noted at this time. Patient denies SOB, on RA O2 @ 98%. Tele monitor in place, SR. Safety measures in place, bed locked and alarm on.
[2020-04-28 05:15] VITALS: BP 155/65
[2020-04-28] MEDS: methylPREDNISolone SOD SUCC 40 MG/ML VIAL IV SCH ×2 (06:01→20:16)
[2020-04-28 06:54] LABS: BASOPHILS % (AUTO) 0.1 % (0.0-2.0); HEMATOCRIT 33.7 % (31.2-41.9); HEMOGLOBIN 11.4 g/dL (10.9-14.3); LYMPHOCYTES # (AUTO) 0.5 K/uL (20.0-40.0); LYMPHOCYTES % (AUTO) 8.1 % (20.5-51.5); MEAN CORPUSCULAR HEMOGLOBIN 27.1 uug (24.7-32.8); MEAN CORPUSCULAR HGB CONC 34 g/dL (32.3-35.6); MEAN CORPUSCULAR VOLUME 79.9 fL (75.5-95.3); MONOCYTES # (AUTO) 0.3 K/uL (2.0-10.0); MONOCYTES % (AUTO) 5.1 % (0.0-11.0); NEUTROPHILS # (AUTO) 5.3 K/uL (1.8-8.9); NEUTROPHILS % (AUTO) 86.7 % (38.5-71.5); PLATELET COUNT (AUTO) 418 K/uL (179-408); RED BLOOD CELL COUNT(AUTO) 4.22 MIL/uL (3.63-4.92); WHITE BLOOD COUNT (AUTO) 6.1 K/uL (3.8-11.8)
[2020-04-28 07:01] LABS: CARBON DIOXIDE 29 mmol/L (21-32); CHLORIDE 95 mmol/L (98-107); CREATININE 1.1 mg/dL (0.6-1.3); GLUCOSE 162 mg/dL (74-106); POTASSIUM 4.3 mmol/L (3.5-5.1); UREA NITROGEN, BLOOD 43 mg/dL (7-18)
[2020-04-28] MEDS: ALBUTEROL SULFATE 2.5 MG/ 0.5 ML NEBU IH SCH ×4 (07:35→20:05)
[2020-04-28] MEDS: IPRATROPIUM BROMIDE 0.5 MG/2.5 ML NEBU NEB SCH ×4 (07:35→20:05)
--- NOTE | 2020-04-28 08:00 | NUR ---
Pt on R/A 98%. Pt c/o pain upon swallowing. Will notify MD when pt is seen. Pt call light is within reach.
[2020-04-28] MEDS: PANTOPRAZOLE SODIUM 40 MG TABLET.DR PO SCH (08:21)
[2020-04-28] MEDS: CYANOCOBALAMIN 1,000 MCG TABLET PO SCH (08:21)
[2020-04-28] MEDS: ATORVASTATIN 10 MG TABLET PO SCH (08:21)
[2020-04-28] MEDS: AMLODIPINE 10 MG TABLET PO SCH (08:21)
[2020-04-28] MEDS: METOCLOPRAMIDE HCL 10 MG TABLET PO SCH ×3 (08:21→17:42)
[2020-04-28] MEDS: CALCIUM CARB/VITAMIN D 500MG-200UNITS TABLET PO SCH ×2 (08:22→17:42)
[2020-04-28] MEDS: CICLOPIROX 0.77% CREAM 30 GM TUBE TP SCH ×2 (08:22→17:42)
[2020-04-28] MEDS: CLOPIDOGREL 75 MG TABLET PO SCH (08:22)
[2020-04-28] MEDS: Z GUARD REMEDY PASTE 57 GM TUBE TOP SCH ×2 (08:22→20:17)
[2020-04-28] MEDS ORDERED: BENZOCAINE/MENTH/CETYLPYRD LOZENGE MM PRN (10:00)
[2020-04-28] MEDS ORDERED: PHENOL/SODIUM PHENOLATE SPRAY 177 ML BOTTLE MM PRN (10:00)
--- NOTE | 2020-04-28 10:00 | NUR ---
Dr byrnes here to see patient. Notified pt c/o swallowing pain. New order received for cephacol.
[2020-04-28 12:00] VITALS: BP 137/69
[2020-04-28] MEDS: BENZOCAINE/MENTH/CETYLPYRD LOZENGE MM PRN ×3 (12:07→20:21)
[2020-04-28 15:47] VITALS: BP 115/43
--- NOTE | 2020-04-28 18:25 | NUR ---
Spoke with WHITNEY ESPAÑA daughter re: Alphagan eye drops not being carried by our pharmacy. Daughter will bring eye drops in am. Cephacol throat lozenges effective. Pt states that "through pain when she swallows" pain level has dropped to 4/10 from 8/10 earlier. Pt is in no acute distress. Call light is within reach.
[2020-04-28] MEDS: MONTELUKAST SODIUM 10 MG TABLET PO SCH (20:16)
[2020-04-28] MEDS: levoFLOXacin 500 MG TABLET PO SCH (20:16)
[2020-04-28] MEDS: MIRTAZAPINE 15 MG TABLET PO SCH (20:16)
[2020-04-28 20:46] VITALS: BP 107/48
--- NOTE | 2020-04-28 22:00 | NUR ---
Pt requested for ambien for sleep and cepacol for sore throat; bed alarm on; continue to monitor.
[2020-04-29 00:46] VITALS: BP 136/66
[2020-04-29 04:55] VITALS: BP 151/69
--- NOTE | 2020-04-29 06:00 | NUR ---
Patient rested well in between care; safety maintained; assisted with needs; continue to monitor; continue plan of care.
[2020-04-29] MEDS: IPRATROPIUM BROMIDE 0.5 MG/2.5 ML NEBU NEB SCH ×2 (07:42→11:44)
[2020-04-29] MEDS: ALBUTEROL SULFATE 2.5 MG/ 0.5 ML NEBU IH SCH ×2 (07:42→11:44)
[2020-04-29] MEDS: CLOPIDOGREL 75 MG TABLET PO SCH (08:01)
[2020-04-29] MEDS: PANTOPRAZOLE SODIUM 40 MG TABLET.DR PO SCH (08:01)
[2020-04-29] MEDS: methylPREDNISolone SOD SUCC 40 MG/ML VIAL IV SCH (08:01)
[2020-04-29] MEDS: CYANOCOBALAMIN 1,000 MCG TABLET PO SCH (08:01)
[2020-04-29] MEDS: CALCIUM CARB/VITAMIN D 500MG-200UNITS TABLET PO SCH (08:01)
[2020-04-29] MEDS: AMLODIPINE 10 MG TABLET PO SCH (08:03)
[2020-04-29] MEDS: METOCLOPRAMIDE HCL 10 MG TABLET PO SCH ×2 (08:03→12:20)
[2020-04-29] MEDS: Z GUARD REMEDY PASTE 57 GM TUBE TOP SCH (08:04)
[2020-04-29] MEDS ORDERED: METH4TAB3 PO (08:05)
[2020-04-29] MEDS: CICLOPIROX 0.77% CREAM 30 GM TUBE TP SCH (08:05)
[2020-04-29] MEDS: ATORVASTATIN 10 MG TABLET PO SCH (08:07)
--- NOTE | 2020-04-29 11:00 | NUR ---
Voice mail Message left to daughterWHITNEY, [phone] notified that her mom is discharged by DR Chew. Awaiting call back.
[2020-04-29] MEDS ORDERED: LACTULOSE 20 G/30 ML LIQUID UDC PO ONE (11:45)
[2020-04-29 12:00] VITALS: BP 128/68
--- NOTE | 2020-04-29 12:00 | NUR ---
Per karson daughter pt will be picked up eta @ 1400.
--- NOTE | 2020-04-29 14:27 | NUR ---
Discharge instructions given to pt and daughter. Both verbalized understanding. Pt has already appt with DR kelley @ [facility] next week. IV d/c. Pt denies any c/o pain. Pt to f/u with vaccination with primary doctor.
[2020-04-29] MEDS ORDERED: GLUCERNA SHAKE VANILLA 237 ML CAN PO SCH (17:00)
== END 2020-04-29 14:45 | disposition home or self-care (01) | DRG 193 ==
LOC: ER 15:12 → TELE3 17:51
PROVIDERS: ADMIT Nurse Practitioner Acute Care; ATTEND Internal Medicine
DX: J15.9 Unspecified bacterial pneumonia (principal); J96.01 Acute respiratory failure with hypoxia; J44.0 Chronic obstructive pulmonary disease with (acute) lower respiratory infection; D68.69 Other thrombophilia; I13.0 Hypertensive heart and chronic kidney disease with heart failure and stage 1 through stage 4 chronic kidney disease, or unspecified chronic kidney disease; J98.11 Atelectasis; E22.2 Syndrome of inappropriate secretion of antidiuretic hormone; J44.1 Chronic obstructive pulmonary disease with (acute) exacerbation; I50.32 Chronic diastolic (congestive) heart failure; M19.90 Unspecified osteoarthritis, unspecified site; Z87.440 Personal history of urinary (tract) infections; Z88.0 Allergy status to penicillin; Z20.822 Contact with and (suspected) exposure to COVID-19; N18.2 Chronic kidney disease, stage 2 (mild); M81.0 Age-related osteoporosis without current pathological fracture; E11.22 Type 2 diabetes mellitus with diabetic chronic kidney disease; K21.9 Gastro-esophageal reflux disease without esophagitis; I25.10 Atherosclerotic heart disease of native coronary artery without angina pectoris; F41.9 Anxiety disorder, unspecified; E11.40 Type 2 diabetes mellitus with diabetic neuropathy, unspecified; E83.42 Hypomagnesemia; F03.90 Unspecified dementia, unspecified severity, without behavioral disturbance, psychotic disturbance, mood disturbance, and anxiety; F32.9 Major depressive disorder, single episode, unspecified; E78.5 Hyperlipidemia, unspecified; Z90.710 Acquired absence of both cervix and uterus
CPT/HCPCS: 36415; 36600; 70030-TC; 71045; 83605; 83735; 84100; 84443; 85025; 87040; 93005; 94640; A4663; G0378; J0692; J1956; J2920; J2930; J3370; J3475; J3590; J7050; J7060; J8499; J8597

== ENCOUNTER 2020-06-17 13:46 | Inpatient (IN) | payer MEDICARE, OTHER ==
[~2020-06-17] VITALS: Ht 144.8 cm; Wt 55.8 kg
[~2020-06-17 13:46] MED LIST changes: +METH4TAB3 PO
--- NOTE | 2020-06-17 14:00 | NUR ---
Dr Roman at bedside for MSE.
[2020-06-17] MEDS ORDERED: VANCOMYCIN 1G/D5W 200 ML PIGGYBACK IV ONE (14:45)
[2020-06-17] MEDS ORDERED: CEFEPIME HCL 1 G in IV DEXTROSE 5% 50 ML IV ONE (14:45)
[2020-06-17] MEDS ORDERED: AZITHROMYCIN 250 MG TABLET PO ONE (14:45)
[2020-06-17 14:46] LABS: ABG BASE EXCESS 1.7 mmol/L; ABG HCO3 25.4 mmol/L; ABG PCO2 36.8 mmHg (35.0-45.0); ABG PH 7.457 (7.350-7.450); ABG PO2 81.3 mmHg (75.0-100.0); ABG SITE RIGHT RADIAL; ABG TOTAL HEMOGLOBIN 11.9 G/dL (12.0-16.0); COHb 0.8 % (0.5-1.5); MetHb 0.3 % (0.0-1.5); O2Hb 95.7 % (94.0-97.0); VENT MODE ROOM AIR
[2020-06-17] MEDS ORDERED: QUET50TA PO (14:52)
[2020-06-17] MEDS ORDERED: OMEP40CA13 PO (14:52)
[2020-06-17] MEDS ORDERED: ERYT-131 PO (14:52)
[2020-06-17] MEDS ORDERED: VENL75CA62 PO (14:52)
[2020-06-17] MEDS ORDERED: IPRA3AMP22 IH (14:52)
[2020-06-17] MEDS ORDERED: IPRA4AER IH (14:52)
[2020-06-17] MEDS ORDERED: ONDA4TAB11 PO (14:52)
[2020-06-17 15:03] LABS: BASOPHILS # (AUTO) 0.1 K/uL (0.0-8.0); BASOPHILS % (AUTO) 0.7 % (0.0-2.0); EOSINOPHILS # (AUTO) 0.1 K/uL (0.0-0.7); HEMATOCRIT 33.9 % (31.2-41.9); HEMOGLOBIN 11.5 g/dL (10.9-14.3); LYMPHOCYTES # (AUTO) 0.9 K/uL (20.0-40.0); LYMPHOCYTES % (AUTO) 9.8 % (20.5-51.5); MEAN CORPUSCULAR HEMOGLOBIN 27.7 uug (24.7-32.8); MEAN CORPUSCULAR HGB CONC 34 g/dL (32.3-35.6); MEAN CORPUSCULAR VOLUME 81.7 fL (75.5-95.3); MONOCYTES # (AUTO) 0.7 K/uL (2.0-10.0); MONOCYTES % (AUTO) 7.7 % (0.0-11.0); NEUTROPHILS # (AUTO) 7.8 K/uL (1.8-8.9); NEUTROPHILS % (AUTO) 80.8 % (38.5-71.5); PLATELET COUNT (AUTO) 470 K/uL (179-408); RED BLOOD CELL COUNT(AUTO) 4.15 MIL/uL (3.63-4.92); WHITE BLOOD COUNT (AUTO) 9.6 K/uL (3.8-11.8)
[2020-06-17 15:09] LABS: CREATININE 0.9 mg/dL (0.6-1.3); POTASSIUM 4.7 mmol/L (3.5-5.1)
[2020-06-17] MEDS ORDERED: AZITHROMYCIN 250 MG TABLET ONE (15:17)
[2020-06-17] MEDS ORDERED: CEFEPIME HCL 1 G VIAL ONE (15:17)
[2020-06-17] MEDS ORDERED: VANCOMYCIN IV 200 ML ONE (15:17)
[2020-06-17 15:24] LABS: BILIRUBIN,DIRECT 0.1 mg/dL (0.0-0.2); BILIRUBIN,TOTAL 0.3 mg/dL (0.2-1.0); TOTAL PROTEIN, SERUM 6.9 g/dL (6.4-8.2)
--- NOTE | 2020-06-17 15:25 | NUR ---
PAGED FOR DR COLLADO FOR PENDING ADMISSION.
--- NOTE | 2020-06-17 16:34 | NUR ---
Report given to Beka CONNER. Patient will be going to Charge Nurse.
--- NOTE | 2020-06-17 16:50 | NUR ---
RECEIVED PATIENT FOE ADMISSION 84 YRS OLD FEMALE BY NESTOR TO ROOM 318 PLACED INTO BED FIXED AND MADE COMFORTABLE ORIENTED TO ROOM AND FACILITY PROTOCOL SHE IS ON ROOM AIR WITH NO SOB TEL E IS SR WITH NO ECTOPY AT THIS TIME.HEPLOCK LEFT AC INTACT MADE COMFORTABLE WILL CONTINUE TO OBSERVE.
--- NOTE | 2020-06-17 17:04 | NUR ---
transported patient to room 318
--- NOTE | 2020-06-17 17:15 | NUR ---
Pt. admitted to TELE , under care of Dr. Rader. IV vancomycin infusing and endorsed to admitting RN Belongs List completed and signed. Patient denies pain. No s/s of distress noted.
--- NOTE | 2020-06-17 17:21 | NUR ---
CALLED DR COLLADO/DR GREENBERGIANS OFFICE RE ADMISSION ORDERS SPOKE WITH ALYCE STATED WILL HAVE DR COLLADO TO RETURN CALL
[2020-06-17] MEDS ORDERED: ONDANSETRON 4 MG/2 ML VIAL IV PRN (18:00)
--- NOTE | 2020-06-17 18:23 | NUR ---
DR COLLADO RETURNED CALL WITH NEW ORDERS AND NOTED.
[2020-06-17 18:31] VITALS: BP 151/77
--- NOTE | 2020-06-17 19:00 | NUR ---
CALLED AND SPOKE WITH LAN CURRAN RE CT SCAN CHEST STATED WILL CORPORATE CONCIERGE PATIENT FOR THE TEST AUDREY.
[2020-06-17] MEDS ORDERED: methylPREDNISolone 1 PACK TAB.DS.PK [4MG TAB] PO SCH (19:15)
[2020-06-17] MEDS ORDERED: CYAN-51 PO (19:22)
[2020-06-17] MEDS ORDERED: IPRATROPIUM BROMIDE 0.5 MG/2.5 ML NEBU NEB PRN (19:30)
[2020-06-17] MEDS ORDERED: ALBUTEROL SULFATE 2.5 MG/ 0.5 ML NEBU NEB PRN (19:30)
--- NOTE | 2020-06-17 19:30 | NUR ---
Received patient lying in bed. AAOx3-4. Mainly Syriac speaking. In no acute distress. Denies any pain or SOB. No coughing noted. IV site on left AC intact and patent. NSR on tele at 75/min. Safety measure initiated and call santana within reached. Continue to monitor.
[2020-06-17] MEDS: MONTELUKAST SODIUM 10 MG TABLET PO SCH (20:39)
[2020-06-17] MEDS: MIRTAZAPINE 15 MG TABLET PO SCH (20:39)
[2020-06-17] MEDS: ACETAMINOPHEN 325 MG TABLET PO PRN (20:39)
--- NOTE | 2020-06-17 20:45 | NUR ---
Patient picked up via wheelchair by radiology assistant Julio for CT chest.
--- NOTE | 2020-06-17 21:00 | NUR ---
Patient back to her room from CT.
[2020-06-17 21:20] VITALS: BP 141/66
[2020-06-17] MEDS: QUETIAPINE FUMARATE 25 MG TABLET PO SCH (21:26)
[2020-06-18] VITALS: BP 121/55
[2020-06-18 04:03] VITALS: BP 147/53
[2020-06-18] MEDS: PANTOPRAZOLE SODIUM 40 MG TABLET.DR PO SCH (06:03)
--- NOTE | 2020-06-18 06:16 | NUR ---
Slept well last night. No complain of pain or SOB. No coughing noted. IV site on left AC intact and patent. NSR on tele at 69/min. Needs assessed and attended to. Safety measure maintained and call santana within reached.
[2020-06-18 06:50] LABS: BASOPHILS # (AUTO) 0.1 K/uL (0.0-8.0); BASOPHILS % (AUTO) 1.2 % (0.0-2.0); EOSINOPHILS # (AUTO) 0.3 K/uL (0.0-0.7); EOSINOPHILS % (AUTO) 4.6 % (0.0-7.0); HEMATOCRIT 32.2 % (31.2-41.9); HEMOGLOBIN 10.9 g/dL (10.9-14.3); LYMPHOCYTES # (AUTO) 1.7 K/uL (20.0-40.0); MEAN CORPUSCULAR HEMOGLOBIN 27.8 uug (24.7-32.8); MEAN CORPUSCULAR HGB CONC 34 g/dL (32.3-35.6); MEAN CORPUSCULAR VOLUME 81.9 fL (75.5-95.3); MONOCYTES # (AUTO) 0.8 K/uL (2.0-10.0); MONOCYTES % (AUTO) 11.1 % (0.0-11.0); NEUTROPHILS # (AUTO) 4.1 K/uL (1.8-8.9); NEUTROPHILS % (AUTO) 59.1 % (38.5-71.5); PLATELET COUNT (AUTO) 411 K/uL (179-408); RED BLOOD CELL COUNT(AUTO) 3.93 MIL/uL (3.63-4.92)
[2020-06-18 07:07] LABS: CREATININE 1.1 mg/dL (0.6-1.3); POTASSIUM 4.2 mmol/L (3.5-5.1)
--- NOTE | 2020-06-18 08:45 | NUR ---
PATIENT SEEN AND EXAMINED BY THE PHYSICAL THERAPY FOR EVAL HAS POOR ENDURANCE AT THIS TIME.
[2020-06-18] MEDS: ATORVASTATIN 10 MG TABLET PO SCH (08:49)
[2020-06-18] MEDS: METOCLOPRAMIDE HCL 5 MG TABLET PO SCH ×3 (08:49→16:40)
[2020-06-18] MEDS: DOCUSATE SODIUM 100 MG CAPSULE PO SCH (08:49)
[2020-06-18] MEDS: CLOPIDOGREL 75 MG TABLET PO SCH (08:50)
[2020-06-18] MEDS: CYANOCOBALAMIN 1,000 MCG TABLET PO SCH (08:50)
[2020-06-18] MEDS: VENLAFAXINE XR 75 MG TAB.ER.24H PO SCH (08:50)
[2020-06-18] MEDS: hydrALAZINE HCL 50 MG TABLET PO SCH ×3 (08:51→16:40)
[2020-06-18] MEDS: AMLODIPINE 10 MG TABLET PO SCH (08:52)
[2020-06-18] MEDS: BRIMONIDINE 0.2% OPHT DROP 10 ML BOTTLE EACHEYE SCH ×2 (08:56→16:40)
[2020-06-18] MEDS ORDERED: CYANOCOBALAMIN 100 MCG TABLET PO SCH (09:00)
[2020-06-18] MEDS ORDERED: BRIMONIDINE-P 0.1% OPHTH DROP 5 ML DROPS EACHEYE SCH (09:00)
[2020-06-18] MEDS ORDERED: METOCLOPRAMIDE HCL 10 MG TABLET PO SCH (09:00)
[2020-06-18] MEDS ORDERED: ALBUTEROL SULFATE 2.5 MG/ 0.5 ML NEBU NEB SCH (09:00)
[2020-06-18] MEDS ORDERED: Medication Not On Formulary EA (Omeprazole 1 CAP) PO SCH (09:00)
[2020-06-18] MEDS ORDERED: IPRATROPIUM BROMIDE 0.5 MG/2.5 ML NEBU NEB SCH ×2 (09:00→10:15)
--- NOTE | 2020-06-18 11:00 | NUR ---
DR KOHLER HERE AND SEEN PATIENT WITH NEW ORDERS AND NOTED.
[2020-06-18 11:33] VITALS: BP 130/54
[2020-06-18] MEDS ORDERED: AZITHROMYCIN IV 250 MG in IV DEXTROSE 5% 250 ML IV SCH (15:00)
[2020-06-18 15:57] VITALS: BP 112/58
[2020-06-18] MEDS: BENZOCAINE/MENTH/CETYLPYRD LOZENGE MM PRN ×2 (17:56→22:21)
[2020-06-18] MEDS: ALBUTEROL SULFATE 2.5 MG/ 0.5 ML NEBU NEB SCH (19:35)
[2020-06-18] MEDS: IPRATROPIUM BROMIDE 0.5 MG/2.5 ML NEBU NEB SCH (19:35)
[2020-06-18 19:58] VITALS: BP 112/54
[2020-06-18] MEDS: MIRTAZAPINE 15 MG TABLET PO SCH (20:07)
[2020-06-18] MEDS: MONTELUKAST SODIUM 10 MG TABLET PO SCH (20:07)
[2020-06-18] MEDS: QUETIAPINE FUMARATE 25 MG TABLET PO SCH (20:07)
[2020-06-18] MEDS ORDERED: VANCOMYCIN IV 750 MG in IV DEXTROSE 5% 250 ML IV SCH (23:00)
[2020-06-19 00:42] VITALS: BP 152/55
[2020-06-19] MEDS ORDERED: VANCOMYCIN IV 750 MG in IV DEXTROSE 5% 250 ML IV SCH (03:30)
[2020-06-19 04:20] VITALS: BP 137/71
--- NOTE | 2020-06-19 05:12 | NUR ---
Patient rested well in between care; no acute distress; seen by NERA ETL MANAGER last night with new orders; safety maintained; VSS; Continue to monitor; continue plan of care.
[2020-06-19] MEDS: PANTOPRAZOLE SODIUM 40 MG TABLET.DR PO SCH (05:36)
[2020-06-19 07:14] LABS: BASOPHILS # (AUTO) 0.1 K/uL (0.0-8.0); BASOPHILS % (AUTO) 0.9 % (0.0-2.0); EOSINOPHILS # (AUTO) 0.3 K/uL (0.0-0.7); EOSINOPHILS % (AUTO) 4.2 % (0.0-7.0); HEMATOCRIT 32.4 % (31.2-41.9); HEMOGLOBIN 10.9 g/dL (10.9-14.3); LYMPHOCYTES # (AUTO) 1.5 K/uL (20.0-40.0); LYMPHOCYTES % (AUTO) 20.6 % (20.5-51.5); MEAN CORPUSCULAR HEMOGLOBIN 27.3 uug (24.7-32.8); MEAN CORPUSCULAR HGB CONC 34 g/dL (32.3-35.6); MEAN CORPUSCULAR VOLUME 81.3 fL (75.5-95.3); MONOCYTES # (AUTO) 0.8 K/uL (2.0-10.0); MONOCYTES % (AUTO) 11.6 % (0.0-11.0); NEUTROPHILS # (AUTO) 4.5 K/uL (1.8-8.9); NEUTROPHILS % (AUTO) 62.7 % (38.5-71.5); PLATELET COUNT (AUTO) 390 K/uL (179-408); RED BLOOD CELL COUNT(AUTO) 3.98 MIL/uL (3.63-4.92); WHITE BLOOD COUNT (AUTO) 7.2 K/uL (3.8-11.8)
[2020-06-19 07:29] LABS: CREATININE 0.8 mg/dL (0.6-1.3); MAGNESIUM 1.9 mg/dL (1.8-2.4); POTASSIUM 3.7 mmol/L (3.5-5.1)
--- NOTE | 2020-06-19 07:30 | NUR ---
Received patient resting in bed. On room air. No signs of acute distress. With left AC #20 IV access. bed locked and in low position. call light within reach. will continue to monitor.
[2020-06-19] MEDS: ALBUTEROL SULFATE 2.5 MG/ 0.5 ML NEBU NEB SCH ×2 (07:36→20:45)
[2020-06-19] MEDS: IPRATROPIUM BROMIDE 0.5 MG/2.5 ML NEBU NEB SCH ×2 (07:36→20:45)
[2020-06-19] MEDS: AZITHROMYCIN 250 MG TABLET PO SCH (08:55)
[2020-06-19] MEDS: CYANOCOBALAMIN 1,000 MCG TABLET PO SCH (08:55)
[2020-06-19] MEDS: METOCLOPRAMIDE HCL 5 MG TABLET PO SCH ×3 (08:55→16:23)
[2020-06-19] MEDS: DOCUSATE SODIUM 100 MG CAPSULE PO SCH (08:55)
[2020-06-19] MEDS: ATORVASTATIN 10 MG TABLET PO SCH (08:56)
[2020-06-19] MEDS: BRIMONIDINE 0.2% OPHT DROP 10 ML BOTTLE EACHEYE SCH ×2 (08:56→16:23)
[2020-06-19] MEDS: VENLAFAXINE XR 75 MG TAB.ER.24H PO SCH (08:56)
[2020-06-19] MEDS: CLOPIDOGREL 75 MG TABLET PO SCH (08:57)
[2020-06-19] MEDS: AMLODIPINE 10 MG TABLET PO SCH (08:58)
[2020-06-19] MEDS: hydrALAZINE HCL 50 MG TABLET PO SCH ×3 (08:58→16:24)
[2020-06-19 11:21] VITALS: BP 113/45
[2020-06-19 15:09] VITALS: BP 116/49
--- NOTE | 2020-06-19 18:28 | NUR ---
No significant changes during shift. AOx3. On room air. No signs of acute distress. Compliant with medication and care. Safety measures provided. Needs met. Will endorse to incoming shift.
--- NOTE | 2020-06-19 19:30 | NUR ---
RECEIVED PT AWAKE, ALERT AND ORIENTEDX3. PT IN NO ACUTE DISTRESS. IV INTACT. SAFETY AND COMFORT PROVIDED. WILL CONTINUE TO MONITOR.
[2020-06-19 20:05] VITALS: BP 128/56
[2020-06-19] MEDS: QUETIAPINE FUMARATE 25 MG TABLET PO SCH (20:10)
[2020-06-19] MEDS: MONTELUKAST SODIUM 10 MG TABLET PO SCH (20:11)
[2020-06-19] MEDS: MIRTAZAPINE 15 MG TABLET PO SCH (21:14)
[2020-06-20 04:05] VITALS: BP 126/50
--- NOTE | 2020-06-20 05:55 | NUR ---
PT SLEPT INTERMITTENTLY. PT IN NO ACUTE DISTRESS. IV INTACT. PRESCRIBED MEDICATION GIVEN AND PT TOLERATED IT WELL. SAFETY AND COMFORT PROVIDED. WILL ENDORSE TO INCOMING NURSE FOR CONTINUITY OF CARE.
[2020-06-20] MEDS: PANTOPRAZOLE SODIUM 40 MG TABLET.DR PO SCH (06:04)
[2020-06-20] MEDS: IPRATROPIUM BROMIDE 0.5 MG/2.5 ML NEBU NEB SCH ×2 (07:17→20:45)
[2020-06-20] MEDS: ALBUTEROL SULFATE 2.5 MG/ 0.5 ML NEBU NEB SCH ×2 (07:17→20:45)
[2020-06-20] MEDS: CLOPIDOGREL 75 MG TABLET PO SCH (08:05)
[2020-06-20] MEDS: AZITHROMYCIN 250 MG TABLET PO SCH (08:05)
[2020-06-20] MEDS: ATORVASTATIN 10 MG TABLET PO SCH (08:05)
[2020-06-20] MEDS: DOCUSATE SODIUM 100 MG CAPSULE PO SCH (08:05)
[2020-06-20] MEDS: AMLODIPINE 10 MG TABLET PO SCH (08:05)
[2020-06-20] MEDS: VENLAFAXINE XR 75 MG TAB.ER.24H PO SCH (08:05)
[2020-06-20] MEDS: METOCLOPRAMIDE HCL 5 MG TABLET PO SCH ×3 (08:05→16:02)
[2020-06-20] MEDS: hydrALAZINE HCL 50 MG TABLET PO SCH ×3 (08:05→16:02)
[2020-06-20] MEDS: CYANOCOBALAMIN 1,000 MCG TABLET PO SCH (08:05)
[2020-06-20] MEDS: BRIMONIDINE 0.2% OPHT DROP 10 ML BOTTLE EACHEYE SCH ×2 (08:05→16:02)
[2020-06-20 11:46] VITALS: BP 117/44
[2020-06-20] MEDS: ACETAMINOPHEN 325 MG TABLET PO PRN (14:49)
[2020-06-20] MEDS: MAGNESIUM HYDROXIDE 30 ML LIQUID UDC PO PRN (15:05)
[2020-06-20 15:54] VITALS: BP 154/82
[2020-06-20 20:05] VITALS: BP 139/63
[2020-06-20] MEDS: QUETIAPINE FUMARATE 25 MG TABLET PO SCH (20:13)
[2020-06-20] MEDS: MIRTAZAPINE 15 MG TABLET PO SCH (20:13)
[2020-06-20] MEDS: MONTELUKAST SODIUM 10 MG TABLET PO SCH (20:13)
[2020-06-21 04:05] VITALS: BP 142/62
--- NOTE | 2020-06-21 05:17 | NUR ---
Pt slept throughout the night. Denies pain or SOB. Was given prune juice to help with bowel movement. Tolerated all medications. Safety and comfort provided. Call light within reach. No other issues or concerns at this time, will endorse to day shift.
[2020-06-21] MEDS: MAGNESIUM HYDROXIDE 30 ML LIQUID UDC PO PRN (05:58)
[2020-06-21] MEDS: PANTOPRAZOLE SODIUM 40 MG TABLET.DR PO SCH (06:00)
[2020-06-21] MEDS ORDERED: METO5TAB2 PO (06:28)
[2020-06-21] MEDS: ALBUTEROL SULFATE 2.5 MG/ 0.5 ML NEBU NEB SCH (07:34)
[2020-06-21] MEDS: IPRATROPIUM BROMIDE 0.5 MG/2.5 ML NEBU NEB SCH (07:34)
[2020-06-21] MEDS: ATORVASTATIN 10 MG TABLET PO SCH (08:06)
[2020-06-21] MEDS: AMLODIPINE 10 MG TABLET PO SCH (08:06)
[2020-06-21] MEDS: hydrALAZINE HCL 50 MG TABLET PO SCH ×3 (08:06→16:05)
[2020-06-21] MEDS: CLOPIDOGREL 75 MG TABLET PO SCH (08:06)
[2020-06-21] MEDS: VENLAFAXINE XR 75 MG TAB.ER.24H PO SCH (08:06)
[2020-06-21] MEDS: DOCUSATE SODIUM 100 MG CAPSULE PO SCH (08:06)
[2020-06-21] MEDS: METOCLOPRAMIDE HCL 5 MG TABLET PO SCH ×3 (08:06→16:12)
[2020-06-21] MEDS: AZITHROMYCIN 250 MG TABLET PO SCH (08:06)
[2020-06-21] MEDS: CYANOCOBALAMIN 1,000 MCG TABLET PO SCH (08:06)
[2020-06-21] MEDS: BRIMONIDINE 0.2% OPHT DROP 10 ML BOTTLE EACHEYE SCH ×2 (08:06→16:12)
[2020-06-21] MEDS ORDERED: ERGOCALCIFEROL 50,000 UNIT CAPSULE PO SCH (09:00)
[2020-06-21 11:48] VITALS: BP 128/45
[2020-06-21] MEDS ORDERED: ALBUTEROL SULFATE 2.5 MG/ 0.5 ML NEBU NEB SCH (13:30)
[2020-06-21] MEDS ORDERED: IPRATROPIUM BROMIDE 0.5 MG/2.5 ML NEBU NEB SCH (13:30)
[2020-06-21 15:06] VITALS: BP 102/65
[2020-06-21 16:05] VITALS: BP 102/65
--- NOTE | 2020-06-21 18:55 | NUR ---
dc orders received noted and carried out,dc instruction given to the pt and her daughter,mingo aris per md orders,pt left the facility via private car in stable condition
[2020-06-23] MEDS ORDERED: ALENDRONATE SODIUM 70 MG TABLET PO SCH (06:00)
== END 2020-06-21 19:03 | disposition home or self-care (01) | DRG 191 ==
LOC: ER 13:46 → TELE3 16:37 → MEDSURG3 06-19 08:20
PROVIDERS: ADMIT Internal Medicine; ATTEND Internal Medicine
DX: J44.1 Chronic obstructive pulmonary disease with (acute) exacerbation (principal); I13.0 Hypertensive heart and chronic kidney disease with heart failure and stage 1 through stage 4 chronic kidney disease, or unspecified chronic kidney disease; E87.1 Hypo-osmolality and hyponatremia; I50.32 Chronic diastolic (congestive) heart failure; Z20.822 Contact with and (suspected) exposure to COVID-19; Z88.0 Allergy status to penicillin; E11.22 Type 2 diabetes mellitus with diabetic chronic kidney disease; N18.2 Chronic kidney disease, stage 2 (mild); R91.8 Other nonspecific abnormal finding of lung field; K22.70 Barrett's esophagus without dysplasia; E27.8 Other specified disorders of adrenal gland; D64.9 Anemia, unspecified; F03.90 Unspecified dementia, unspecified severity, without behavioral disturbance, psychotic disturbance, mood disturbance, and anxiety; I50.9 Heart failure, unspecified; Z90.710 Acquired absence of both cervix and uterus; I25.10 Atherosclerotic heart disease of native coronary artery without angina pectoris; M19.90 Unspecified osteoarthritis, unspecified site; M81.0 Age-related osteoporosis without current pathological fracture; E78.5 Hyperlipidemia, unspecified; J06.9 Acute upper respiratory infection, unspecified; J92.9 Pleural plaque without asbestos; I35.1 Nonrheumatic aortic (valve) insufficiency
CPT/HCPCS: 36415; 36600; 70030-TC; 71045; 71270; 74220; 83605; 83735; 84100; 85025; 87040; 87070; 93005; 94640; 94664; A4663; G0378; J0456; J0692; J3370; J3590; J7050; J7060; J8597; Q0144

== ENCOUNTER 2020-10-30 10:35 | Inpatient (IN) | payer MEDICARE, OTHER ==
[~2020-10-30] VITALS: Ht 152.4 cm; Wt 49.1 kg
[~2020-10-30 10:35] MED LIST changes: -ALBU2.5V13 IH; -BUDESONIDE IH; -CALC-995 PO; -CICL15CR12 TP; +CYAN-51 PO; -CYAN100T44 PO; -DICL100G16 TP; +IPRA3AMP22 IH; +IPRA4AER IH; -METH4TAB3 PO; +METO5TAB2 PO; +MIRT-93 PO; -MIRT15TA7 PO; +OMEP40CA21 PO; -PANT40TA49 PO; +QUET50TA PO; +VENL75CA62 PO
[2020-10-30] MEDS ORDERED: ALBUTEROL SULFATE 2.5 MG/3 ML NEBU NEB ONE (11:00)
[2020-10-30] MEDS ORDERED: TRAMADOL HCL 50 MG TABLET PO ONE (11:00)
[2020-10-30] MEDS ORDERED: TRAMADOL HCL 50 MG TABLET ONE (11:12)
[2020-10-30] MEDS ORDERED: ALBUTEROL SULFATE 2.5 MG/3 ML NEBU ONE (11:15)
--- NOTE | 2020-10-30 11:40 | NUR ---
PT IS IN ROOM #2A. DR WARREN EVALUATED THE PT.
[2020-10-30] MEDS ORDERED: FAMO20TA8 PO (11:43)
[2020-10-30] MEDS ORDERED: MELA5TAB PO (11:43)
[2020-10-30] MEDS ORDERED: CALC-15 PO (11:43)
[2020-10-30] MEDS ORDERED: CICL15CR12 TP (11:43)
[2020-10-30] MEDS ORDERED: MECL-159 PO (11:43)
[2020-10-30] MEDS ORDERED: DICL100G31 TP (11:43)
[2020-10-30] MEDS ORDERED: BUDE10.2 INH (11:43)
[2020-10-30] MEDS ORDERED: PHEN177S31 MM (11:43)
[2020-10-30 12:12] LABS: HEMATOCRIT 31.8 % (31.2-41.9); MEAN CORPUSCULAR HEMOGLOBIN 25.8 uug (24.7-32.8); MEAN CORPUSCULAR VOLUME 79.1 fL (75.5-95.3); PLATELET COUNT (AUTO) 457 K/uL (179-408)
[2020-10-30 12:19] LABS: CARBON DIOXIDE 27 mmol/L (21-32); CHLORIDE 99 mmol/L (98-107); CREATININE 0.8 mg/dL (0.6-1.3); GLUCOSE 146 mg/dL (74-106); POTASSIUM 3.6 mmol/L (3.5-5.1); UREA NITROGEN, BLOOD 10 mg/dL (7-18)
[2020-10-30 12:25] LABS: ALANINE AMINOTRANSFERASE 29 U/L (14-59); ALKALINE PHOSPHATASE 107 U/L (50-136); ASPARTATE AMINOTRANSFERASE 23 U/L (15-37); BILIRUBIN,DIRECT < 0.1 mg/dL (0.0-0.2); BILIRUBIN,TOTAL 0.3 mg/dL (0.2-1.0); TOTAL PROTEIN, SERUM 6.6 g/dL (6.4-8.2)
[2020-10-30] MEDS ORDERED: MORPHINE SULFATE 2 MG/1 ML DISP.SYRIN ONE (13:30)
[2020-10-30] MEDS ORDERED: ONDANSETRON 4 MG/2 ML VIAL ONE (13:30)
[2020-10-30] MEDS ORDERED: MORPHINE SULFATE 2 MG/1 ML DISP.SYRIN IV ONE (13:30)
[2020-10-30] MEDS ORDERED: ONDANSETRON 4 MG/2 ML VIAL IV ONE (13:30)
--- NOTE | 2020-10-30 13:52 | NUR ---
DR COLLADO WAS CALLED ACCORDING TO DR WARREN REQUEST.
--- NOTE | 2020-10-30 16:00 | NUR ---
PT RESTING IN BED, PRESENTED WITH NAUSEA, NO EMESIS PRESENT, PT C/O ABDOMINAL PAIN, STATES SHE HAS NOT HAS A BM FOR 12 DAYS. PT A/OX3 CUBAN SPEAKING, ON ROOM AIR, NO SIGNS OF DISTRESS, NO REPORTS OF PAIN, IV ON THE LEFT AC 22G, BED LOW AND LOCKED, CALL LIGHT WITHIN REACH, WILL CONTINUE TO MONITOR.
--- NOTE | 2020-10-30 16:14 | NUR ---
PT WAS TRANSFERED TO ROOM #317. REPORT WAS GIVEN TO CHIEF LIBRARIAN CIRCULATION DEPARTMENT.
[2020-10-30] MEDS ORDERED: ONDANSETRON 4 MG/2 ML VIAL IV PRN (16:15)
[2020-10-30 16:32] VITALS: BP 196/71
[2020-10-30] MEDS ORDERED: ACETAMINOPHEN 325 MG TABLET PO PRN (16:45)
[2020-10-30] MEDS ORDERED: MAGNESIUM HYDROXIDE 30 ML LIQUID UDC PO PRN (16:45)
[2020-10-30] MEDS ORDERED: Z GUARD REMEDY PASTE 57 GM TUBE TOP PRN (16:45)
[2020-10-30] MEDS: ONDANSETRON 4 MG/2 ML VIAL IV PRN (16:55)
[2020-10-30] MEDS ORDERED: BRIMONIDINE-P 0.1% OPHTH DROP 5 ML DROPS EACHEYE SCH ×2 (17:00)
[2020-10-30] MEDS: hydrALAZINE HCL 20 MG/1 ML VIAL IV PRN (17:09)
[2020-10-30] MEDS: BRIMONIDINE 0.2% OPHT DROP 10 ML BOTTLE EACHEYE SCH (17:20)
[2020-10-30 20:22] VITALS: BP 123/55
[2020-10-30] MEDS: ZOLPIDEM 5 MG TABLET PO PRN (20:36)
[2020-10-31 00:08] VITALS: BP 154/55
--- NOTE | 2020-10-31 00:24 | NUR ---
RECD PT IN BED,RESTING QUIETLY, NO ACUTE DISTRESS NOTED, ON TELE SR 64, CALL LITE W/I REACH.NEEDS ATTENDED TO.
[2020-10-31 04:30] VITALS: BP 166/54
[2020-10-31 06:40] LABS: MEAN CORPUSCULAR HEMOGLOBIN 26.4 uug (24.7-32.8); MEAN CORPUSCULAR VOLUME 78.8 fL (75.5-95.3); PLATELET COUNT (AUTO) 443 K/uL (179-408)
[2020-10-31] MEDS: hydrALAZINE HCL 20 MG/1 ML VIAL IV PRN (06:57)
[2020-10-31 07:08] LABS: CREATININE 0.8 mg/dL (0.6-1.3); PHOSPHOROUS 3.4 mg/dL (2.5-4.9)
[2020-10-31 07:11] LABS: NEUTROPHILS % (MANUAL) 0 % (42-75)
--- NOTE | 2020-10-31 07:12 | NUR ---
BP 166/54, NO HEADACHE,APRESOLINE IV GIVEN ORDERED, BP TO BE RECHECKED LATER, WEIGHT STANDING SCALE 11.4, IN FAIR CONDITION. ,
--- NOTE | 2020-10-31 07:30 | NUR ---
Patient received in bed, alert and oriented. NSR on monitor at this time. On RA with oxygen saturation of 95%. Left AC IV patent with no redness or swelling noted at this time. No acute distress noted. Patient in c/o constipation and MD aware. Will administer lactulose as ordered. Call light within easy reach. Will continue to monitor.
[2020-10-31] MEDS ORDERED: LACTULOSE 20 G/30 ML LIQUID UDC PO ONE (08:15)
[2020-10-31] MEDS: hydrALAZINE HCL 50 MG TABLET PO SCH ×3 (08:36→22:00)
[2020-10-31] MEDS: AMLODIPINE 10 MG TABLET PO SCH (08:37)
[2020-10-31] MEDS: BRIMONIDINE 0.2% OPHT DROP 10 ML BOTTLE EACHEYE SCH ×2 (08:39→17:43)
[2020-10-31] MEDS ORDERED: ATORVASTATIN 10 MG TABLET PO SCH (09:00)
[2020-10-31] MEDS: ONDANSETRON 4 MG/2 ML VIAL IV PRN (11:22)
[2020-10-31] MEDS: MIRALAX 17 GM POWD.PACK PO PRN (11:22)
[2020-10-31 12:00] VITALS: BP 119/48
[2020-10-31] MEDS: TRAMADOL HCL 50 MG TABLET PO PRN (15:35)
[2020-10-31] MEDS: ENOXAPARIN SODIUM 40 MG/0.4 ML DISP.SYRIN SQ SCH (15:35)
[2020-10-31 15:57] VITALS: BP 126/52
[2020-10-31] MEDS ORDERED: FAMO20TA8 PO (17:27)
--- NOTE | 2020-10-31 19:56 | NUR ---
Patient in bed alert and able to make needs known.Still c/o constipation. MOM given. Iv on left Ac 20g patent and intact. No s/s infiltration.Patient incontinent to bladder.Urinated well.Changed and repositioned patient. Call light with in reach. Will continue to monitor.
[2020-10-31 22:34] VITALS: BP 95/63
[2020-11-01] MEDS: TRAMADOL HCL 50 MG TABLET PO PRN (04:19)
[2020-11-01 04:55] VITALS: BP 145/60
[2020-11-01] MEDS: hydrALAZINE HCL 50 MG TABLET PO SCH (05:12)
--- NOTE | 2020-11-01 07:30 | NUR ---
Patient received in bed, alert and oriented. On RA with oxygen saturation of 96%. Left AC IV patent with no redness or swelling noted at this time. No acute distress noted. Patient is c/o constipation and MD aware. Will administer miralax as ordered. Call light within easy reach. Will continue to monitor.
[2020-11-01] MEDS: ENOXAPARIN SODIUM 40 MG/0.4 ML DISP.SYRIN SQ SCH (08:26)
[2020-11-01] MEDS: BRIMONIDINE 0.2% OPHT DROP 10 ML BOTTLE EACHEYE SCH ×2 (08:32→16:54)
[2020-11-01] MEDS: AMLODIPINE 10 MG TABLET PO SCH (08:33)
[2020-11-01] MEDS: MIRALAX 17 GM POWD.PACK PO PRN (08:35)
--- NOTE | 2020-11-01 10:00 | NUR ---
[facility] provider Janes Vega at bedside. Disimpaction performed at bedside. Soft brown BM. Provider states will order fleet enema. Will administer as ordered.
[2020-11-01] MEDS ORDERED: FLEET ENEMA 133 ML BOTTLE RC ONE (10:30)
--- NOTE | 2020-11-01 10:55 | NUR ---
Patient had a medium sized soft brown BM post enema. Patient states she feels a lot of relief. Provider notified and aware. Will continue to monitor.
[2020-11-01 12:00] VITALS: BP 122/74
[2020-11-01] MEDS: hydrALAZINE HCL 25 MG TABLET PO SCH ×2 (14:23→21:25)
[2020-11-01 16:00] VITALS: BP 124/59
[2020-11-01] MEDS: FAMOTIDINE 20 MG TABLET PO SCH (16:54)
[2020-11-01] MEDS: ENSURE ENLIVE (VAN) 240 ML LIQUID PO SCH (17:20)
[2020-11-01 20:23] VITALS: BP 122/47
[2020-11-01] MEDS: ATORVASTATIN 10 MG TABLET PO SCH (21:00)
[2020-11-02 04:54] VITALS: BP 145/61
[2020-11-02] MEDS: hydrALAZINE HCL 25 MG TABLET PO SCH ×3 (06:10→21:09)
--- NOTE | 2020-11-02 07:30 | NUR ---
Patient received in bed, alert and oriented. On 2.5L O2 via NC with no SOB or difficulties breathing, oxygen saturation at 99%. Titrated O2 down to 1L. Left AC IV patent with no redness or swelling noted at this time. No acute distress noted. Patient had large BM. All needs met. Call light within easy reach. Will continue to monitor.
[2020-11-02 08:00] VITALS: BP 132/57
[2020-11-02] MEDS: ENSURE ENLIVE (VAN) 240 ML LIQUID PO SCH ×2 (08:43→17:16)
[2020-11-02] MEDS: FAMOTIDINE 20 MG TABLET PO SCH (08:55)
[2020-11-02] MEDS: AMLODIPINE 10 MG TABLET PO SCH (08:55)
[2020-11-02] MEDS: BRIMONIDINE 0.2% OPHT DROP 10 ML BOTTLE EACHEYE SCH ×2 (08:55→17:16)
[2020-11-02] MEDS: ENOXAPARIN SODIUM 40 MG/0.4 ML DISP.SYRIN SQ SCH (08:57)
[2020-11-02 16:00] VITALS: BP 99/44
[2020-11-02 20:50] VITALS: BP 124/42
[2020-11-02] MEDS: ATORVASTATIN 10 MG TABLET PO SCH (21:08)
[2020-11-02] MEDS: ZOLPIDEM 5 MG TABLET PO PRN (21:09)
--- NOTE | 2020-11-02 21:30 | NUR ---
pt resting in bed; pt requested for ambien; safety maintained will continue to monitor.
[2020-11-03 04:53] VITALS: BP 143/52
[2020-11-03] MEDS ORDERED: ALENDRONATE SODIUM 70 MG TABLET PO SCH (06:00)
--- NOTE | 2020-11-03 07:20 | NUR ---
Received patient resting in bed. AOx3-4. On room air. No signs of acute distress. IV access patent and intact. Bed alarm on. Call light within reach. Will continue to monitor.
[2020-11-03] MEDS: AMLODIPINE 10 MG TABLET PO SCH (08:39)
[2020-11-03] MEDS: ENSURE ENLIVE (VAN) 240 ML LIQUID PO SCH ×2 (08:39→16:37)
[2020-11-03] MEDS: FAMOTIDINE 20 MG TABLET PO SCH (08:39)
[2020-11-03] MEDS: BRIMONIDINE 0.2% OPHT DROP 10 ML BOTTLE EACHEYE SCH ×2 (08:41→16:36)
[2020-11-03] MEDS: ENOXAPARIN SODIUM 40 MG/0.4 ML DISP.SYRIN SQ SCH (08:42)
[2020-11-03 11:41] VITALS: BP 131/50
[2020-11-03 16:00] VITALS: BP 147/55
--- NOTE | 2020-11-03 18:42 | NUR ---
Patient resting in bed. AOx4. On room air. On room air. No signs of acute distress. Patient denies pain/ discomfort. IV access patent and intact. Compliant with medications and care. Call light within reach. Bed alarm on for safety. Needs anticipated and met. Will endorse to incoming shift for continuity of care.
--- NOTE | 2020-11-03 19:30 | NUR ---
RECEIVED PT AWAKE, ALERT AND ORIENTEDX4 . PT IN NO ACUTE DISTRESS. IV INTACT. SAFETY AND COMFORT PROVIDED. WILL CONTINUE TO MONITOR.
[2020-11-03 19:38] VITALS: BP 133/44
[2020-11-03] MEDS: ATORVASTATIN 10 MG TABLET PO SCH (20:05)
[2020-11-03] MEDS: ZOLPIDEM 5 MG TABLET PO PRN (21:06)
[2020-11-04 04:28] VITALS: BP 144/49
--- NOTE | 2020-11-04 05:32 | NUR ---
PT SLEPT COMFORTABLY. PT IN NO ACUTE DISTRESS. PRESCRIBED MEDICATION GIVEN AND PT TOLERATED IT WELL. AMBIEN 5MG PRN GIVEN FOR SLEEP PER PT REQUEST. SAFETY AND COMFORT PROVIDED. WILL ENDORSE TO INCOMING NURSE FOR CONTINUITY OF CARE.
--- NOTE | 2020-11-04 07:20 | NUR ---
Received patient awake in bed. AOx3-4. On room air. No signs of acute distress. Patient denies pain/ discomfort at this time. IV access patent and intact. Call light within reach. Bed alarm on for safety. Will continue to monitor.
[2020-11-04] MEDS: BRIMONIDINE 0.2% OPHT DROP 10 ML BOTTLE EACHEYE SCH ×2 (08:13→17:17)
[2020-11-04] MEDS: AMLODIPINE 10 MG TABLET PO SCH (08:14)
[2020-11-04] MEDS: FAMOTIDINE 20 MG TABLET PO SCH (08:14)
[2020-11-04] MEDS: ENOXAPARIN SODIUM 40 MG/0.4 ML DISP.SYRIN SQ SCH (08:15)
[2020-11-04] MEDS: ENSURE ENLIVE (VAN) 240 ML LIQUID PO SCH ×2 (08:15→17:17)
[2020-11-04 11:35] VITALS: BP 110/50
[2020-11-04 16:00] VITALS: BP 137/48
--- NOTE | 2020-11-04 19:46 | NUR ---
Patient for discharge to [facility]. AOx4. On room air. No signs of acute distress. Discharge instructions given to patient and family at bedside and verbalized understanding. Belongings accounted for and belongings list signed. Nursing report given to RN at [facility]. Will endorse to hotel night auditor RN while awaiting for transport.
--- NOTE | 2020-11-04 20:29 | NUR ---
PT DISCHARGED WHEELED OUT VIA GURNEY. BELONGING LIST DONE. DISCHARGE PACKET AND INSTRUCTIONS GIVEN. FAMILY AT BEDSIDE. DISCHARGE PAPERS GIVEN TO [facility]. TAKEN OFF IV AND ID WRISTBAND. PT VITAL SIGNS WITHIN NORMAL LIMIT. PT STABLE.
== END 2020-11-04 21:00 | DRG 392 ==
LOC: ER 10:35 → TELE3 14:32 → MEDSURG3 10-31 15:13
PROVIDERS: ADMIT Internal Medicine Nephrology; ATTEND Internal Medicine Nephrology
DX: K59.00 Constipation, unspecified (principal); I50.32 Chronic diastolic (congestive) heart failure; J96.10 Chronic respiratory failure, unspecified whether with hypoxia or hypercapnia; I95.9 Hypotension, unspecified; M54.9 Dorsalgia, unspecified; D64.9 Anemia, unspecified; E78.5 Hyperlipidemia, unspecified; F03.90 Unspecified dementia, unspecified severity, without behavioral disturbance, psychotic disturbance, mood disturbance, and anxiety; J44.9 Chronic obstructive pulmonary disease, unspecified; I11.0 Hypertensive heart disease with heart failure; K21.9 Gastro-esophageal reflux disease without esophagitis; M81.0 Age-related osteoporosis without current pathological fracture; M19.90 Unspecified osteoarthritis, unspecified site; W19.XXXA Unspecified fall, initial encounter; Y93.9 Activity, unspecified; Y92.89 Other specified places as the place of occurrence of the external cause; Z88.0 Allergy status to penicillin; R53.1 Weakness; K44.9 Diaphragmatic hernia without obstruction or gangrene; I10 Essential (primary) hypertension
CPT/HCPCS: 36415; 70030-TC; 70450; 71250; 83735; 84100; 85025; 85730; 93005; 97161; A4663; G0378; J0360; J1650; J2270; J2405; J8499

== ENCOUNTER 2021-03-06 00:26 | Inpatient (IN) | payer MEDICARE, OTHER ==
[~2021-03-06] VITALS: Ht 152.4 cm; Wt 51.8 kg
[~2021-03-06 00:26] MED LIST changes: +BUDE10.2 INH; +CALC-15 PO; +CICL15CR12 TP; -CLOP75TA33 PO; -CYAN-51 PO; -DOCU-141 PO; -ERGO500040 PO; +FAMO20TA8 PO; +MELA5TAB PO; -METO-295 PO; -OMEP40CA21 PO; -QUET50TA PO; -VENL75CA62 PO
--- NOTE | 2021-03-06 00:30 | NUR ---
PT BIB DAUGHTER IN WHEELCHAIR FROM HOME FOR SOB AND CP 9HRS PATIENT COORDINATOR. PT IS ETHIOPIAN SPEAKING A/O X2. ABLE TO AMBULATE WITH ASSIST FROM WHEELCHAIR TO BED.
--- NOTE | 2021-03-06 00:35 | NUR ---
DR. HAYES AT BEDSIDE, MSE IN PROGRESS.
[2021-03-06] MEDS ORDERED: ALBUTEROL SULFATE 2.5 MG/3 ML NEBU NEB ONE (00:45)
[2021-03-06] MEDS ORDERED: ASPIRIN 81 MG TAB.CHEW PO ONE (00:45)
[2021-03-06] MEDS ORDERED: BUDE10.2 IH (00:57)
[2021-03-06] MEDS ORDERED: CYAN-51 PO (00:57)
[2021-03-06] MEDS ORDERED: MECL-159 PO (00:57)
[2021-03-06] MEDS ORDERED: OMEP40CA21 PO (00:57)
[2021-03-06] MEDS ORDERED: FAMO20TA8 PO (00:57)
[2021-03-06] MEDS ORDERED: VOLTAREN GEL TOP (00:57)
[2021-03-06] MEDS ORDERED: ALBUTEROL SULFATE 2.5 MG/3 ML NEBU ONE (00:59)
--- NOTE | 2021-03-06 01:03 | NUR ---
XRAY AT BEDSIDE.
[2021-03-06] MEDS ORDERED: ASPIRIN 81 MG TAB.CHEW ONE (01:10)
[2021-03-06 01:33] LABS: HEMATOCRIT 32.2 % (31.2-41.9); MEAN CORPUSCULAR HEMOGLOBIN 25.7 uug (24.7-32.8); MEAN CORPUSCULAR VOLUME 78.3 fL (75.5-95.3); PLATELET COUNT (AUTO) 406 K/uL (179-408)
[2021-03-06 01:42] LABS: CREATININE 0.9 mg/dL (0.6-1.3); POTASSIUM 3.8 mmol/L (3.5-5.1)
[2021-03-06] MEDS ORDERED: IV NS 1000 ML 1,000 ML IV ONE (03:30)
--- NOTE | 2021-03-06 03:34 | NUR ---
SUSHILA FOR DR. COLLADO AT [phone].
--- NOTE | 2021-03-06 03:38 | NUR ---
DR. SEYMOUR WEEKS PAGED FROM EPIC PANEL CALL.
[2021-03-06 03:42] LABS: BILIRUBIN,DIRECT 0.1 mg/dL (0.0-0.2); BILIRUBIN,TOTAL 0.4 mg/dL (0.2-1.0)
[2021-03-06 03:57] LABS: *BILIRUBIN,URIN NEGATIVE (NEGATIVE); *BLOOD, URINE NEGATIVE (NEGATIVE); *KETONES,URINE NEGATIVE (NEGATIVE); *UROBILINOGEN,URINE 0.2 E.U./dl (NORMAL); LEUKOCYTE ESTERASE ,URINE 1+ (NEGATIVE); NITRITE, URINE NEGATIVE (NEGATIVE); UGLUCOSE NEGATIVE (NEGATIVE)
[2021-03-06] MEDS ORDERED: ACETAMINOPHEN 325 MG TABLET PO PRN (04:00)
[2021-03-06] MEDS ORDERED: MAGNESIUM HYDROXIDE 30 ML LIQUID UDC PO PRN (04:00)
[2021-03-06] MEDS ORDERED: ONDANSETRON 4 MG/2 ML VIAL IV PRN (04:00)
[2021-03-06 04:01] LABS: *CLARITY,URINE HAZY (CLEAR); *COLOR,URINE YELLOW (YELLOW)
[2021-03-06 04:03] LABS: BACTERIA,URINE MODERATE /HPF (NONE SEEN); RBC,URINE 0-3 /HPF (0-3); SQUAMOUS EPITHELIAL CELL,UR MODERATE /HPF (NONE SEEN)
--- NOTE | 2021-03-06 04:39 | NUR ---
PT NOTED TO BE SOILED, PROPER PERINEAL CARE RENDERED. NOW NOTED TO BE DRY CLEAN AND COMFORTABLE. NO SOB OR LABORED BREATHING. DENIES ANY PAIN/DISCOMFORT.
--- NOTE | 2021-03-06 05:10 | NUR ---
GAVE REPORT TO JERRY.
--- NOTE | 2021-03-06 05:32 | NUR ---
Pt. admitted to tele , under care of Dr. Shaikh Dx: COPD exacerbation Belongs List completed
[2021-03-06 05:44] VITALS: BP 132/53
--- NOTE | 2021-03-06 05:58 | NUR ---
Admitted to Tele at 0530H. Denies pain or SOB. Satting 90% on 2L NC. Pt is SR on monitor. IV site intact. Pt able to make needs known and educated collection correspondent light. No distress noted at this time.
[2021-03-06] MEDS: PANTOPRAZOLE SODIUM 40 MG TABLET.DR PO SCH (06:44)
--- NOTE | 2021-03-06 07:42 | NUR ---
Received sleeping no acute distress. On 2 Lpm nc tolerated. Breathing even and non labored. No sob. No facial grimacing noted. Safety maintained. Bed locked. Cont to monitor
--- NOTE | 2021-03-06 08:45 | NUR ---
Dr. Mon is aware that per Dr. Pruitt patient was mistakenly assigned to epic group. She is a patient of Dr. Gaitan.
[2021-03-06] MEDS: ENOXAPARIN SODIUM 40 MG/0.4 ML DISP.SYRIN SQ SCH (09:13)
[2021-03-06 12:00] VITALS: BP 134/44
[2021-03-06] MEDS: ALBUTEROL SULFATE 2.5 MG/3 ML NEBU NEB SCH ×4 (13:47→22:33)
[2021-03-06 16:00] VITALS: BP 130/55
--- NOTE | 2021-03-06 16:00 | NUR ---
Dr. Mon said he'll come tonight to reconcile meds. pharmacy aware.
--- NOTE | 2021-03-06 18:23 | NUR ---
Remains on 2 Lpm nasal cannula tolerating well. No sob. Compliant with care. Needs attended. Safety maintained.
[2021-03-06 20:00] VITALS: BP 117/58
[2021-03-06] MEDS ORDERED: MECLIZINE HCL 25 MG TABLET PO PRN (20:30)
[2021-03-06] MEDS: REMEDY ESSENTIAL ZINC PASTE 113 GM TOP SCH (20:33)
[2021-03-06] MEDS: ATORVASTATIN 10 MG TABLET PO SCH (21:16)
[2021-03-06] MEDS: MONTELUKAST SODIUM 10 MG TABLET PO SCH (21:16)
[2021-03-06] MEDS: MIRTAZAPINE 15 MG TABLET PO SCH (21:16)
[2021-03-06] MEDS: IV NS 1000 ML 1,000 ML IV PRN (21:43)
[2021-03-07] VITALS: BP 140/57
[2021-03-07] MEDS: ALBUTEROL SULFATE 2.5 MG/3 ML NEBU NEB SCH ×6 (02:30→23:30)
[2021-03-07 04:00] VITALS: BP 133/60
--- NOTE | 2021-03-07 05:47 | NUR ---
Pt slept throughout the night. Denies pain or SOB. No distress noted. IV not in place, new one started and is running ordered fluids. 2L NC, tolerating well. Will endorse to day shift.
[2021-03-07 06:18] LABS: HEMATOCRIT 30.7 % (31.2-41.9); MEAN CORPUSCULAR HEMOGLOBIN 26.3 uug (24.7-32.8); MEAN CORPUSCULAR VOLUME 78.5 fL (75.5-95.3); PLATELET COUNT (AUTO) 383 K/uL (179-408)
[2021-03-07 06:19] LABS: BILIRUBIN,TOTAL 0.3 mg/dL (0.2-1.0); CREATININE 0.6 mg/dL (0.6-1.3); TOTAL PROTEIN, SERUM 6.3 g/dL (6.4-8.2)
[2021-03-07] MEDS: PANTOPRAZOLE SODIUM 40 MG TABLET.DR PO SCH (06:24)
[2021-03-07 08:00] VITALS: BP 131/53
[2021-03-07] MEDS: AMLODIPINE 10 MG TABLET PO SCH (08:59)
[2021-03-07] MEDS: METOCLOPRAMIDE HCL 5 MG TABLET PO SCH ×3 (08:59→16:44)
[2021-03-07] MEDS: hydrALAZINE HCL 50 MG TABLET PO SCH ×3 (08:59→16:44)
[2021-03-07] MEDS: ASPIRIN 81 MG TAB.CHEW PO SCH (08:59)
[2021-03-07] MEDS ORDERED: BRIMONIDINE-P 0.1% OPHTH DROP 5 ML DROPS EACHEYE SCH (09:00)
[2021-03-07] MEDS: ENOXAPARIN SODIUM 40 MG/0.4 ML DISP.SYRIN SQ SCH (09:00)
[2021-03-07] MEDS ORDERED: FAMOTIDINE 20 MG TABLET PO SCH (09:00)
[2021-03-07] MEDS: BRIMONIDINE 0.2% OPHT DROP 10 ML BOTTLE EACHEYE SCH ×2 (09:01→16:44)
[2021-03-07] MEDS: REMEDY ESSENTIAL ZINC PASTE 113 GM TP PRN (09:04)
[2021-03-07] MEDS: REMEDY ESSENTIAL ZINC PASTE 113 GM TOP SCH ×2 (09:05→20:25)
[2021-03-07] MEDS ORDERED: IPRATROPIUM BROMIDE 0.5 MG/2.5 ML NEBU NEB PRN (10:15)
[2021-03-07] MEDS ORDERED: ALBUTEROL SULFATE 2.5 MG/3 ML NEBU NEB PRN (10:15)
[2021-03-07] MEDS: FLUTICASONE/VILANTEROL 1 EACH BLST.W.DEV INH SCH (10:22)
[2021-03-07] MEDS: IV NS 1000 ML 1,000 ML IV PRN (10:27)
--- NOTE | 2021-03-07 10:56 | NUR ---
WOUND CARE CONSULT: PT PRESENTS WITH SACRAL SCARRING, PRESENT ON ADMISSION. RECOMMENDATIONS MADE FOR SKIN PROTECTION. DISCUSSED WITH NURSING STAFF. IN AGREEMENT WITH PLAN OF CARE. Addendum: 03/07/21 at 1058 by SAI MEZA RN Amended: Links added.
--- NOTE | 2021-03-07 11:30 | NUR ---
Pt is a/ox 4, icelandic speaking, pleasant. Pt had wound consult today, applied mepilex to sacral scarring. Titrated pt off oxygen, pt saturates at 94% on room air with history of COPD.Comfort measures provided, call light within reach, will continue to monitor.
[2021-03-07 12:00] VITALS: BP 111/45
[2021-03-07 16:00] VITALS: BP 117/52
--- NOTE | 2021-03-07 18:17 | NUR ---
contacted daughter and update preferred pharmacy. Pt is stable on room air. Comfort measures provided, call light within reach. IV patent and intact. Will endorse to awake overnight counselor.
[2021-03-07] MEDS: MONTELUKAST SODIUM 10 MG TABLET PO SCH (20:25)
[2021-03-07] MEDS: ATORVASTATIN 10 MG TABLET PO SCH (20:25)
[2021-03-07] MEDS: MIRTAZAPINE 15 MG TABLET PO SCH (20:25)
[2021-03-07 20:48] VITALS: BP 132/57
[2021-03-08 00:22] VITALS: BP 126/62
[2021-03-08] MEDS: IV NS 1000 ML 1,000 ML IV PRN ×2 (03:47→17:02)
[2021-03-08] MEDS: ALBUTEROL SULFATE 2.5 MG/3 ML NEBU NEB SCH ×6 (03:47→23:13)
[2021-03-08 04:00] VITALS: BP 144/56
--- NOTE | 2021-03-08 05:53 | NUR ---
Pt slept throughout the night. No distress noted. Able to follow commands. Pt states that she has not had a bowel movement in 8 days, MOM and prune juice were given to patient. IV site intact. Will endorse to day shift.
[2021-03-08] MEDS: PANTOPRAZOLE SODIUM 40 MG TABLET.DR PO SCH (06:28)
--- NOTE | 2021-03-08 08:00 | NUR ---
AWAKE ALERT AND VERBALLY RESPONSIVE FOLLOWS DIRECTIONS AND COOPERATIVE. SR/ST ON MONITOR
[2021-03-08] MEDS: FLUTICASONE/VILANTEROL 1 EACH BLST.W.DEV INH SCH (09:08)
[2021-03-08] MEDS: METOCLOPRAMIDE HCL 5 MG TABLET PO SCH ×3 (09:08→16:37)
[2021-03-08] MEDS: hydrALAZINE HCL 50 MG TABLET PO SCH ×3 (09:08→16:38)
[2021-03-08] MEDS: ASPIRIN 81 MG TAB.CHEW PO SCH (09:08)
[2021-03-08] MEDS: BRIMONIDINE 0.2% OPHT DROP 10 ML BOTTLE EACHEYE SCH ×2 (09:09→16:38)
[2021-03-08] MEDS: AMLODIPINE 10 MG TABLET PO SCH (09:09)
[2021-03-08] MEDS: REMEDY ESSENTIAL ZINC PASTE 113 GM TOP SCH ×2 (09:10→20:30)
[2021-03-08] MEDS: ENOXAPARIN SODIUM 40 MG/0.4 ML DISP.SYRIN SQ SCH (09:10)
[2021-03-08 12:00] VITALS: BP 146/53
--- NOTE | 2021-03-08 12:00 | NUR ---
NO ACUTE CHANGE FROM MORNING ASSESSMENT
[2021-03-08] MEDS: REMEDY ESSENTIAL ZINC PASTE 113 GM TP PRN (13:01)
--- NOTE | 2021-03-08 15:22 | NUR ---
RESTING COMFORTABLY IN BED NO SS OF PAIN OR DISTRESS
[2021-03-08 16:00] VITALS: BP 121/51
--- NOTE | 2021-03-08 19:30 | NUR ---
Patient is AAO x4. she is a Malay speaker. Able to make needs known. On RA, no SOB or coughing. Patient Dx is COPD exacerbation. Running NS at 83cc/hr, no s/s of fluid overload. Denies any pain. Call light within reach. Safety measures initiated.
[2021-03-08] MEDS: ATORVASTATIN 10 MG TABLET PO SCH (20:29)
[2021-03-08] MEDS: MONTELUKAST SODIUM 10 MG TABLET PO SCH (20:29)
[2021-03-08] MEDS: MIRTAZAPINE 15 MG TABLET PO SCH (20:29)
[2021-03-08 20:56] VITALS: BP 104/41
[2021-03-09 01:03] VITALS: BP 115/54
[2021-03-09] MEDS: ALBUTEROL SULFATE 2.5 MG/3 ML NEBU NEB SCH ×4 (03:51→14:46)
[2021-03-09 05:47] VITALS: BP 122/31
[2021-03-09] MEDS ORDERED: ALENDRONATE SODIUM 70 MG TABLET PO SCH (06:00)
[2021-03-09] MEDS: PANTOPRAZOLE SODIUM 40 MG TABLET.DR PO SCH (06:21)
[2021-03-09] MEDS: IV NS 1000 ML 1,000 ML IV PRN (06:26)
--- NOTE | 2021-03-09 06:52 | NUR ---
Patient slept well. No significant events this shift.
--- NOTE | 2021-03-09 08:00 | NUR ---
PATIENT IS AWAKE ALERT AND ORIENTED DENIES PAIN OR DISCOMFORTS AT THIS TIME SHE IS ON ROOM AIR WITH NO SHORTNESS OF BREATH BUT CONTINUES TO GET HER HAND HELD NEBULIZER ORDERED NOTED EPISODES OF WHEEZING HELPED WITH THE HHN IVF IN PROGRESS ORDERED WITH NO S/S OF INFILTERATION ON SITE MADE COMFORTABLE WILL CONTINUE TO OBSERVE.
[2021-03-09] MEDS: ASPIRIN 81 MG TAB.CHEW PO SCH (08:33)
[2021-03-09] MEDS: METOCLOPRAMIDE HCL 5 MG TABLET PO SCH ×3 (08:33→17:00)
[2021-03-09] MEDS: BRIMONIDINE 0.2% OPHT DROP 10 ML BOTTLE EACHEYE SCH ×2 (08:35→17:02)
[2021-03-09] MEDS: FLUTICASONE/VILANTEROL 1 EACH BLST.W.DEV INH SCH (08:35)
[2021-03-09] MEDS: AMLODIPINE 10 MG TABLET PO SCH (08:37)
[2021-03-09] MEDS: hydrALAZINE HCL 50 MG TABLET PO SCH ×3 (08:37→17:00)
[2021-03-09] MEDS: REMEDY ESSENTIAL ZINC PASTE 113 GM TOP SCH (08:39)
[2021-03-09] MEDS: ENOXAPARIN SODIUM 40 MG/0.4 ML DISP.SYRIN SQ SCH (08:43)
[2021-03-09 12:00] VITALS: BP 117/44
--- NOTE | 2021-03-09 13:34 | NUR ---
DR LOBO HERE SEEN PATIENT WITH ORDER TO DISCHARGE PATIENT HOME TODAY I NOTIFIED HIM THAT I HELD HER HYDRALAZINE BECAUSE HER BLOOD PRESSURE IS 108/50 AND HE STATED OKAY ALSO SPOKE TO PATIENTS DAUGHTER WHITNEY ESPAÑA RE DISCHARGE AND SHE STATED WILL BE HERE ABOUT 1830 TO PICK PATIENT UP.PATIENT AWARE.
[2021-03-09 16:00] VITALS: BP 114/46
[2021-03-09 17:00] VITALS: BP 110/46
--- NOTE | 2021-03-09 18:22 | NUR ---
DISCHARGED PAPERS COMPLETED AWAITING FOR PATIENTS DAUGHTER WHITNEY ESPAÑA TO ARRIVE SO I CAN INSTRUCT HER PATIENT HAS LANGUAGE ISSUES.
--- NOTE | 2021-03-09 19:15 | NUR ---
PATIENT DISCHARGED PICKED UP BY HER DAUGHTER WHITNEY IN SATISFACTORY CONDITION WITH DISCHARGE INSTRUCTIONS AND ALL HER PERSONAL BELONGINGS WHITNEY WAS INSTRUCTED RE PATIENT BLOOD PRESSURE BEING LOW AND SHE IS ON HYDRALAZINE ROUTINELY WILL NEED TO REVISIT THIS WITH DR COLLADO DURING HER FOLLOW UP VISIT DR LOBO IS AWARE OF THE LOW BLOOD PRESSURE WITH NO NEW ORDERS AT THIS TIME.
== END 2021-03-09 19:15 | disposition home or self-care (01) | DRG 641 ==
LOC: ER 00:32 → TELE3 05:17
PROVIDERS: ADMIT Internal Medicine Nephrology; ATTEND Internal Medicine
DX: E87.1 Hypo-osmolality and hyponatremia (principal); E86.1 Hypovolemia; R07.9 Chest pain, unspecified; J44.9 Chronic obstructive pulmonary disease, unspecified; K21.9 Gastro-esophageal reflux disease without esophagitis; E78.5 Hyperlipidemia, unspecified; F03.90 Unspecified dementia, unspecified severity, without behavioral disturbance, psychotic disturbance, mood disturbance, and anxiety; I11.0 Hypertensive heart disease with heart failure; I50.9 Heart failure, unspecified; M81.0 Age-related osteoporosis without current pathological fracture; Z20.822 Contact with and (suspected) exposure to COVID-19; Z91.81 History of falling; D64.9 Anemia, unspecified; R62.7 Adult failure to thrive; Z68.22 Body mass index [BMI] 22.0-22.9, adult
CPT/HCPCS: 36415; 70030-TC; 70490; 71045; 83605; 83735; 84100; 85025; 85730; 87040; 87086; 93005; 93307; 94640; 97161; A4663; G0378; J1650; J3590; J7030; J8499; J8597

== ENCOUNTER 2021-05-07 21:23 | Inpatient (IN) | payer MEDICARE, OTHER ==
[~2021-05-07] VITALS: Ht 152.4 cm; Wt 54.6 kg
[~2021-05-07 21:23] MED LIST changes: +BUDE10.2 IH; -BUDE10.2 INH; +CYAN-51 PO; -IPRA4AER IH; +MECL-159 PO; +OMEP40CA21 PO; +VOLTAREN GEL TOP
--- NOTE | 2021-05-07 21:47 | NUR ---
Dr. Roman at bedside, MSE in progress
[2021-05-07] MEDS ORDERED: MORPHINE SULFATE 2 MG/1 ML DISP.SYRIN IV ONE (22:00)
[2021-05-07] MEDS ORDERED: methylPREDNISolone SOD SUCC 125 MG/2 ML VIAL IV ONE (22:00)
[2021-05-07] MEDS ORDERED: ALBUTEROL SULFATE 2.5 MG/3 ML NEBU NEB ONE (22:00)
[2021-05-07] MEDS ORDERED: IPRATROPIUM BROMIDE 0.5 MG/2.5 ML NEBU NEB ONE (22:00)
--- NOTE | 2021-05-07 22:10 | NUR ---
pt taken to CT via [place].
[2021-05-07 22:16] LABS: CARBON DIOXIDE 26 mmol/L (21-32); CHLORIDE 92 mmol/L (98-107); CREATININE 0.9 mg/dL (0.6-1.3); GLUCOSE 183 mg/dL (74-106); HEMATOCRIT 29.3 % (31.2-41.9); MEAN CORPUSCULAR HEMOGLOBIN 26.9 uug (24.7-32.8); MEAN CORPUSCULAR VOLUME 79.4 fL (75.5-95.3); PLATELET COUNT (AUTO) 366 K/uL (179-408); POTASSIUM 4.3 mmol/L (3.5-5.1); UREA NITROGEN, BLOOD 16 mg/dL (7-18)
[2021-05-07] MEDS ORDERED: IPRATROPIUM BROMIDE 0.5 MG/2.5 ML NEBU ONE (22:17)
[2021-05-07] MEDS ORDERED: ALBUTEROL SULFATE 2.5 MG/3 ML NEBU ONE (22:17)
[2021-05-07 22:29] LABS: ALANINE AMINOTRANSFERASE 28 U/L (14-59); ALKALINE PHOSPHATASE 86 U/L (50-136); ASPARTATE AMINOTRANSFERASE 20 U/L (15-37); BILIRUBIN,DIRECT 0.1 mg/dL (0.0-0.2); BILIRUBIN,TOTAL 0.3 mg/dL (0.2-1.0); TOTAL PROTEIN, SERUM 6.7 g/dL (6.4-8.2)
--- NOTE | 2021-05-07 22:29 | NUR ---
pt returned from CT
[2021-05-07] MEDS ORDERED: HYDR-4077 PO (23:06)
[2021-05-07] MEDS ORDERED: ERGO500040 PO (23:06)
[2021-05-07] MEDS ORDERED: methylPREDNISolone SOD SUCC 125 MG/2 ML VIAL ONE (23:40)
[2021-05-07] MEDS ORDERED: MORPHINE SULFATE 2 MG/1 ML DISP.SYRIN ONE (23:40)
[2021-05-08] MEDS ORDERED: ALBUTEROL SULFATE 2.5 MG/3 ML NEBU ONE (00:19)
[2021-05-08] MEDS ORDERED: IPRATROPIUM BROMIDE 0.5 MG/2.5 ML NEBU ONE (00:20)
[2021-05-08] MEDS ORDERED: ALBUTEROL SULFATE 2.5 MG/3 ML NEBU NEB ONE (00:30)
[2021-05-08] MEDS ORDERED: IPRATROPIUM BROMIDE 0.5 MG/2.5 ML NEBU NEB ONE (00:30)
[2021-05-08] MEDS ORDERED: ONDANSETRON 4 MG/2 ML VIAL ONE (00:54)
--- NOTE | 2021-05-08 00:57 | NUR ---
Paged Dr RaderN to admit patient. Waiting for call back.
[2021-05-08] MEDS ORDERED: ONDANSETRON 4 MG/2 ML VIAL IV ONE (01:00)
--- NOTE | 2021-05-08 01:31 | NUR ---
Called to page Dr. Rader. Still waiting for call back.
--- NOTE | 2021-05-08 02:29 | NUR ---
report given to Iker CONNER tele
[2021-05-08 03:44] VITALS: BP 133/54
[2021-05-08 04:00] VITALS: BP 140/41
--- NOTE | 2021-05-08 04:20 | NUR ---
DR Corral is aware of admission and will put orders soon.
[2021-05-08] MEDS ORDERED: ONDANSETRON 4 MG/2 ML VIAL IV PRN (06:00)
[2021-05-08] MEDS ORDERED: ZOLPIDEM 5 MG TABLET PO PRN (06:00)
[2021-05-08] MEDS ORDERED: REMEDY ESSENTIAL ZINC PASTE 113 GM TP PRN (06:00)
[2021-05-08] MEDS ORDERED: MECLIZINE HCL 25 MG TABLET PO PRN (06:00)
[2021-05-08] MEDS: methylPREDNISolone SOD SUCC 40 MG/ML VIAL IV SCH ×3 (06:19→22:11)
--- NOTE | 2021-05-08 08:00 | NUR ---
RESTING COMFORTABLY IN BED WITH HOB ELEVATED 35 DEGREES, MILD WHEEZING ON EXERTION, DENIES PAIN SR ON MONITOR
[2021-05-08] MEDS ORDERED: Medication Not On Formulary EA (Omeprazole 40 MG) PO SCH (09:00)
[2021-05-08] MEDS ORDERED: FAMOTIDINE 20 MG TABLET PO SCH ×2 (09:00)
[2021-05-08] MEDS ORDERED: AMLODIPINE 10 MG TABLET PO SCH (09:00)
--- NOTE | 2021-05-08 09:00 | NUR ---
SEEN BY DR ACEVEDO CHANGED STATUS TO MED/SURG
[2021-05-08] MEDS: METOCLOPRAMIDE HCL 5 MG TABLET PO SCH ×3 (09:13→16:26)
[2021-05-08] MEDS: CYANOCOBALAMIN 1,000 MCG TABLET PO SCH (09:13)
[2021-05-08] MEDS: PANTOPRAZOLE SODIUM 40 MG TABLET.DR PO SCH (09:13)
[2021-05-08] MEDS: CALCIUM CARB/VITAMIN D 500MG-200UNITS TABLET PO SCH ×2 (09:13→16:26)
[2021-05-08] MEDS: BRIMONIDINE-P 0.1% OPHTH DROP 5 ML DROPS EACHEYE SCH ×2 (09:14→16:26)
[2021-05-08] MEDS: hydrALAZINE HCL 50 MG TABLET PO SCH ×2 (09:14→20:45)
[2021-05-08] MEDS: CICLOPIROX 0.77% CREAM 30 GM TUBE TP SCH ×2 (09:15→16:26)
[2021-05-08 11:19] VITALS: BP 108/50
--- NOTE | 2021-05-08 12:45 | NUR ---
NOTED PATIENT WITH SEVERE WHEEZING AND SOB WITH 2L NC O2 SATURATING 98%, BP 144/56, HR 114. STAT BREATHING TX AND ROUTINE SOLUMEDROL IV GIVEN. RAPID RESPONSE CALLED SO WITH DR MAE AND DR CARRASQUILLO WITH ORDERS. CXR DONE AWAITING RESULTS
[2021-05-08] MEDS: ALBUTEROL SULFATE 2.5 MG/3 ML NEBU NEB PRN (13:22)
[2021-05-08] MEDS: IPRATROPIUM BROMIDE 0.5 MG/2.5 ML NEBU NEB PRN (13:22)
--- NOTE | 2021-05-08 13:30 | NUR ---
RAPID RESPONSE CLEARED, PATIENT LESS SOB AND LESS WHEEZING NOTED
--- NOTE | 2021-05-08 13:37 | NUR ---
SPOKE WITH DR CARRASQUILLO REVIEWED LABS AND SAID HE WILL FOLLOW-UP PATIENT.
--- NOTE | 2021-05-08 14:30 | NUR ---
DR PHIPPS IN REVIEWED MEDS WITH ORDERS AND CARRIED.
[2021-05-08 15:08] VITALS: BP 114/47
--- NOTE | 2021-05-08 15:55 | NUR ---
RESTING [id number] IN BED NO ACTIVE WHEEZING NOTED SR/ST ON MONITOR
[2021-05-08 20:00] VITALS: BP 124/54
[2021-05-08] MEDS: MIRTAZAPINE 15 MG TABLET PO SCH (20:44)
[2021-05-08] MEDS: FAMOTIDINE 20 MG TABLET PO SCH (20:44)
[2021-05-08] MEDS: MONTELUKAST SODIUM 10 MG TABLET PO SCH (20:44)
[2021-05-08] MEDS: ATORVASTATIN 10 MG TABLET PO SCH (20:44)
[2021-05-08] MEDS: MELATONIN 3 MG TABLET PO SCH (20:45)
[2021-05-08] MEDS ORDERED: Medication Not On Formulary EA (Melatonin 10 MG) PO SCH (21:00)
[2021-05-09 00:12] VITALS: BP 128/61
[2021-05-09 04:12] VITALS: BP 115/45
[2021-05-09] MEDS: methylPREDNISolone SOD SUCC 40 MG/ML VIAL IV SCH ×3 (05:37→22:09)
[2021-05-09] MEDS: PANTOPRAZOLE SODIUM 40 MG TABLET.DR PO SCH (06:22)
--- NOTE | 2021-05-09 06:23 | NUR ---
Patient Luxembourger speaking,able to make needs known.Slept good. No c/o SOB. Compliant with medication crushed with apple sauce. No cough noted.Aspiration precaution observed at all times.HOB elevated.Incontinent.Voided well. Pericare rendered.Iv patent and intact on right hand.All needs anticipated and met accordingly. Will endorse to oncoming shift.
[2021-05-09 06:30] LABS: HEMATOCRIT 28.7 % (31.2-41.9); MEAN CORPUSCULAR HEMOGLOBIN 27.1 uug (24.7-32.8); MEAN CORPUSCULAR VOLUME 79.4 fL (75.5-95.3); PLATELET COUNT (AUTO) 393 K/uL (179-408)
[2021-05-09 06:42] LABS: CREATININE 0.8 mg/dL (0.6-1.3); PHOSPHOROUS 4.2 mg/dL (2.5-4.9); POTASSIUM 4.3 mmol/L (3.5-5.1); URIC ACID 3.6 mg/dL (2.6-6.0)
[2021-05-09 07:05] LABS: THYROID STIMULATING HORMONE 0.316 mIU/mL (0.358-3.740)
--- NOTE | 2021-05-09 07:45 | NUR ---
Received patient awake in bed. AO x 3. Lao speaking. Sinus rhythm on the monitor. 1L nasal cannula attached to patient. Right hand 22G flushing, patent, and intact. Safety precautions in place. Will continue to monitor patient.
[2021-05-09] MEDS ORDERED: ERGOCALCIFEROL 50,000 UNIT CAPSULE PO SCH (09:00)
[2021-05-09] MEDS: AMLODIPINE 5 MG TABLET PO SCH (09:17)
[2021-05-09] MEDS: hydrALAZINE HCL 50 MG TABLET PO SCH ×2 (09:18→20:31)
[2021-05-09] MEDS: CALCIUM CARB/VITAMIN D 500MG-200UNITS TABLET PO SCH ×2 (09:18→17:17)
[2021-05-09] MEDS: METOCLOPRAMIDE HCL 5 MG TABLET PO SCH ×3 (09:18→17:17)
[2021-05-09] MEDS: CYANOCOBALAMIN 1,000 MCG TABLET PO SCH (09:18)
[2021-05-09] MEDS: BRIMONIDINE-P 0.1% OPHTH DROP 5 ML DROPS EACHEYE SCH ×2 (11:24→17:18)
[2021-05-09] MEDS: CICLOPIROX 0.77% CREAM 30 GM TUBE TP SCH ×2 (11:25→17:17)
[2021-05-09 12:00] VITALS: BP 122/50
[2021-05-09 16:00] VITALS: BP 115/48
[2021-05-09 20:00] VITALS: BP 105/51
[2021-05-09] MEDS: MIRTAZAPINE 15 MG TABLET PO SCH (20:30)
[2021-05-09] MEDS: FAMOTIDINE 20 MG TABLET PO SCH (20:30)
[2021-05-09] MEDS: ATORVASTATIN 10 MG TABLET PO SCH (20:30)
[2021-05-09] MEDS: MONTELUKAST SODIUM 10 MG TABLET PO SCH (20:30)
[2021-05-09] MEDS: MELATONIN 3 MG TABLET PO SCH (20:30)
--- NOTE | 2021-05-09 23:38 | NUR ---
Patient awake.Denies pain or discomfort. No s/s of distress noted.Midline insertion done on right upper arm 18 g .No active bleeding. Continue safety measures. Call light with in reach. will continue to monitor.
[2021-05-10] VITALS: BP 118/67
[2021-05-10 04:00] VITALS: BP 122/64
[2021-05-10] MEDS: methylPREDNISolone SOD SUCC 40 MG/ML VIAL IV SCH ×3 (05:51→21:29)
[2021-05-10] MEDS: PANTOPRAZOLE SODIUM 40 MG TABLET.DR PO SCH (06:00)
[2021-05-10] MEDS: CALCIUM CARB/VITAMIN D 500MG-200UNITS TABLET PO SCH ×2 (09:40→17:27)
[2021-05-10] MEDS: CYANOCOBALAMIN 1,000 MCG TABLET PO SCH (09:40)
[2021-05-10] MEDS: METOCLOPRAMIDE HCL 5 MG TABLET PO SCH ×3 (09:40→17:27)
[2021-05-10] MEDS: AMLODIPINE 5 MG TABLET PO SCH (09:40)
[2021-05-10] MEDS: hydrALAZINE HCL 50 MG TABLET PO SCH ×2 (09:41→21:00)
[2021-05-10] MEDS: BRIMONIDINE-P 0.1% OPHTH DROP 5 ML DROPS EACHEYE SCH ×2 (09:41→17:28)
[2021-05-10] MEDS: CICLOPIROX 0.77% CREAM 30 GM TUBE TP SCH ×2 (09:46→17:27)
[2021-05-10 12:00] VITALS: BP 116/48
[2021-05-10] MEDS: GLUCERNA SHAKE VANILLA 237 ML CAN PO SCH ×2 (12:58→17:27)
[2021-05-10 16:00] VITALS: BP 122/49
[2021-05-10] MEDS: IPRATROPIUM BROMIDE 0.5 MG/2.5 ML NEBU NEB PRN ×2 (17:56→21:52)
[2021-05-10] MEDS: ALBUTEROL SULFATE 2.5 MG/3 ML NEBU NEB PRN ×2 (17:56→21:52)
--- NOTE | 2021-05-10 19:33 | NUR ---
Patient tolerated medication without adverse effect. Received breathing treatment for episode of wheezing. Patient verbalize she can breathe better after breathing treatment. Sinus rhythm on the monitor with heart rate in the 100s. Patient on 1L nasal cannula. Will endorse to oncoming shift.
[2021-05-10 20:00] VITALS: BP 113/53
--- NOTE | 2021-05-10 20:00 | NUR ---
RECEIVED PATIENT IN BED. AAOX3, KAZAKH SPEAKING WITH LIMITED YAKUT. ON TELEMONITOR, SHOWING S.R WITH HR OF 96BPM. WITH IV ACCESS TO THE EVAN ML, HEPL[place]. TEMPERATURE IS NOTED TO BE ELEVATED, AT 99, COOLING MEASURES INITIATED. SAFETY PRECAUTIONS INITIATED. BED ALARM ACTIVATED, CALL LIGHT BUTTON WITHIN REACH. WILL CONTINUE TO MONITOR.
[2021-05-10] MEDS: ATORVASTATIN 10 MG TABLET PO SCH (21:28)
[2021-05-10] MEDS: MELATONIN 3 MG TABLET PO SCH (21:29)
[2021-05-10] MEDS: MIRTAZAPINE 15 MG TABLET PO SCH (21:29)
[2021-05-10] MEDS: FAMOTIDINE 20 MG TABLET PO SCH (21:29)
[2021-05-10] MEDS: MONTELUKAST SODIUM 10 MG TABLET PO SCH (21:29)
--- NOTE | 2021-05-10 22:00 | NUR ---
NOTED PATIENT TO BE WHEEZING, REQUESTED RT TO DO BREATHING TREATMENT
[2021-05-11 00:33] VITALS: BP 123/50
[2021-05-11 04:00] VITALS: BP 142/54
--- NOTE | 2021-05-11 05:28 | NUR ---
Patient slept through the night, with no complaints. Showing sinus rhythm on telemonitor. On 1L O2, saturating at 96%, no SOB noted at this time. Patient compliant with medication regimen. Elevated temperature of 99 went down to 98.5. All needs attended to and met. Safety precautions maintained. Will endorse to day shift.
[2021-05-11] MEDS ORDERED: ALENDRONATE SODIUM 70 MG TABLET PO SCH (06:00)
[2021-05-11] MEDS: methylPREDNISolone SOD SUCC 40 MG/ML VIAL IV SCH ×3 (06:13→21:13)
[2021-05-11] MEDS: PANTOPRAZOLE SODIUM 40 MG TABLET.DR PO SCH (06:18)
[2021-05-11] MEDS: CALCIUM CARB/VITAMIN D 500MG-200UNITS TABLET PO SCH ×2 (08:49→17:28)
[2021-05-11] MEDS: METOCLOPRAMIDE HCL 5 MG TABLET PO SCH ×3 (08:49→17:29)
[2021-05-11] MEDS: CYANOCOBALAMIN 1,000 MCG TABLET PO SCH (08:49)
[2021-05-11] MEDS: AMLODIPINE 5 MG TABLET PO SCH (08:50)
[2021-05-11] MEDS: hydrALAZINE HCL 50 MG TABLET PO SCH ×2 (08:50→20:29)
[2021-05-11] MEDS: GLUCERNA SHAKE VANILLA 237 ML CAN PO SCH ×3 (08:51→17:29)
[2021-05-11] MEDS: BRIMONIDINE-P 0.1% OPHTH DROP 5 ML DROPS EACHEYE SCH ×2 (08:51→17:29)
[2021-05-11] MEDS: CICLOPIROX 0.77% CREAM 30 GM TUBE TP SCH ×2 (08:52→17:29)
[2021-05-11 10:56] VITALS: BP 119/44
[2021-05-11 15:37] VITALS: BP 122/48
[2021-05-11] MEDS: ACETAMINOPHEN 325 MG TABLET PO PRN (17:28)
[2021-05-11] MEDS: ALBUTEROL SULFATE 2.5 MG/3 ML NEBU NEB PRN (19:22)
[2021-05-11] MEDS: IPRATROPIUM BROMIDE 0.5 MG/2.5 ML NEBU NEB PRN (19:22)
--- NOTE | 2021-05-11 19:58 | NUR ---
Received patient in bed. AAOX3-4, Puerto Rican speaking with limited Egyptian. Able to make needs known. Sinus rhythm on telemonitor. On 1L O2 via nasal cannula, occasional SOB and wheezing noted. RT did breathing treatment. With ELIF Midline, patent and intact. Head of bed elevated. Safety precautions initiated. Bed alarm activated, Call light button within reach. Will continue to monitor.
[2021-05-11] MEDS: MONTELUKAST SODIUM 10 MG TABLET PO SCH (20:23)
[2021-05-11] MEDS: MAGNESIUM HYDROXIDE 30 ML LIQUID UDC PO PRN (20:23)
[2021-05-11] MEDS: MELATONIN 3 MG TABLET PO SCH (20:24)
[2021-05-11] MEDS: ATORVASTATIN 10 MG TABLET PO SCH (20:24)
[2021-05-11] MEDS: FAMOTIDINE 20 MG TABLET PO SCH (20:24)
[2021-05-11] MEDS: MIRTAZAPINE 15 MG TABLET PO SCH (20:24)
[2021-05-11 20:51] VITALS: BP 108/48
[2021-05-12 00:31] VITALS: BP 134/52
[2021-05-12 04:55] VITALS: BP 143/46
[2021-05-12] MEDS: PANTOPRAZOLE SODIUM 40 MG TABLET.DR PO SCH (06:15)
[2021-05-12] MEDS: methylPREDNISolone SOD SUCC 40 MG/ML VIAL IV SCH ×3 (06:15→21:20)
--- NOTE | 2021-05-12 06:24 | NUR ---
Patient slept through the night. Patient denies SOB, chest pain or dizziness. Compliant with medication regimen. Sinus rhythm on telemonitor. 1L on O2 via nasal cannula. IV access patent and intact. Safety precautions maintained. Will endorse to day shift.
[2021-05-12] MEDS: hydrALAZINE HCL 50 MG TABLET PO SCH ×2 (09:00→20:47)
[2021-05-12] MEDS: METOCLOPRAMIDE HCL 5 MG TABLET PO SCH ×3 (09:04→17:13)
[2021-05-12] MEDS: CYANOCOBALAMIN 1,000 MCG TABLET PO SCH (09:04)
[2021-05-12] MEDS: CALCIUM CARB/VITAMIN D 500MG-200UNITS TABLET PO SCH ×2 (09:04→17:11)
[2021-05-12] MEDS: AMLODIPINE 5 MG TABLET PO SCH (09:06)
[2021-05-12] MEDS: GLUCERNA SHAKE VANILLA 237 ML CAN PO SCH ×3 (09:07→17:13)
[2021-05-12] MEDS: BRIMONIDINE-P 0.1% OPHTH DROP 5 ML DROPS EACHEYE SCH ×2 (09:07→17:11)
[2021-05-12] MEDS: CICLOPIROX 0.77% CREAM 30 GM TUBE TP SCH ×2 (09:08→17:12)
--- NOTE | 2021-05-12 09:23 | NUR ---
PATIENT IS AWAKE ALERT AND AWARE COOPERATIVE AND COMPLIANT WITH MEDICATIONS ON O2 AT 1L/M BY NASAL CANULA WITH NO SOB AT THIS TIME TELE IS SR DUE MEDICATIONS GIVEN CALL LIGHTS AND PERSOANL BELONGINGS ARE WITHIN EASY REACH MADE COMFORTABLE WILL CONTINUE TO OBSERVE.
[2021-05-12 11:20] VITALS: BP 128/42
[2021-05-12 16:09] VITALS: BP 132/45
[2021-05-12] MEDS ORDERED: LACTULOSE 20 G/30 ML LIQUID UDC PO PRN (16:45)
[2021-05-12 20:23] VITALS: BP 133/38
[2021-05-12] MEDS: ATORVASTATIN 10 MG TABLET PO SCH (20:45)
[2021-05-12] MEDS: MELATONIN 3 MG TABLET PO SCH (20:46)
[2021-05-12] MEDS: MIRTAZAPINE 15 MG TABLET PO SCH (20:46)
[2021-05-12] MEDS: FAMOTIDINE 20 MG TABLET PO SCH (20:46)
[2021-05-12] MEDS: MONTELUKAST SODIUM 10 MG TABLET PO SCH (20:46)
--- NOTE | 2021-05-12 21:56 | NUR ---
Patient in bed. AAOX3-4, Burundian speaking. On 1L O2 via nasal cannula. With ELIF Midline, patent and intact. Head of bed elevated.Aspiration precaution observed at all times.Due meds given as ordered.Incontinent to both B & B.BMx1 .Pericare rendered.Bed alarm activated, Call light button within reach. Will continue to monitor.
[2021-05-12] MEDS: MAGNESIUM HYDROXIDE 30 ML LIQUID UDC PO PRN (22:48)
[2021-05-13 04:22] VITALS: BP 146/45
[2021-05-13] MEDS: methylPREDNISolone SOD SUCC 40 MG/ML VIAL IV SCH ×2 (05:54→13:56)
[2021-05-13] MEDS: PANTOPRAZOLE SODIUM 40 MG TABLET.DR PO SCH (06:39)
--- NOTE | 2021-05-13 07:51 | NUR ---
PATIENT IS AWAKE ALERT AND ORIENTED WITH LANGUAGE ISSUES BUT ABLE TO MAKE NEEDS KNOWN ON O2 WITH NO SOB AT THIS TIME TOTALLY DEPENDENT FOR ALL ADL CALL LIGHT AND PERSONAL BELONGINGS ARE WITHIN EASY REACH AT THIS TIME WILL CONTINUE TO OBSERVE.
[2021-05-13] MEDS: GLUCERNA SHAKE VANILLA 237 ML CAN PO SCH ×3 (08:00→16:57)
[2021-05-13] MEDS: CALCIUM CARB/VITAMIN D 500MG-200UNITS TABLET PO SCH ×2 (08:48→16:56)
[2021-05-13] MEDS: METOCLOPRAMIDE HCL 5 MG TABLET PO SCH ×3 (08:48→16:56)
[2021-05-13] MEDS: CYANOCOBALAMIN 1,000 MCG TABLET PO SCH (08:48)
[2021-05-13] MEDS: AMLODIPINE 5 MG TABLET PO SCH (08:49)
[2021-05-13] MEDS: hydrALAZINE HCL 50 MG TABLET PO SCH ×2 (08:49→21:05)
[2021-05-13] MEDS: CICLOPIROX 0.77% CREAM 30 GM TUBE TP SCH ×2 (08:50→16:58)
[2021-05-13] MEDS: BRIMONIDINE-P 0.1% OPHTH DROP 5 ML DROPS EACHEYE SCH ×2 (08:50→16:57)
[2021-05-13] MEDS: ACETAMINOPHEN 325 MG TABLET PO PRN (11:30)
[2021-05-13 12:00] VITALS: BP 152/49
[2021-05-13 16:00] VITALS: BP 142/43
--- NOTE | 2021-05-13 18:00 | NUR ---
PATIENT IS RESTING IN BED DENIES PAIN OR DISCOMFORTS NO C/O NOTED AT THIS TIME.
--- NOTE | 2021-05-13 19:35 | NUR ---
PATIENT AWAKE ABLE TO MAKE NEEDS KNOWN, NO SOB NO CHEST PAIN, NO COUGH NOTED, PATIENT RESPIRATION EVEN AND UNLABORED, CONT TO MONITOR.
[2021-05-13 20:00] VITALS: BP 123/56
[2021-05-13] MEDS: MIRTAZAPINE 15 MG TABLET PO SCH (21:03)
[2021-05-13] MEDS: MONTELUKAST SODIUM 10 MG TABLET PO SCH (21:03)
[2021-05-13] MEDS: MELATONIN 3 MG TABLET PO SCH (21:04)
[2021-05-13] MEDS: ATORVASTATIN 10 MG TABLET PO SCH (21:04)
[2021-05-13] MEDS: FAMOTIDINE 20 MG TABLET PO SCH (21:05)
[2021-05-13] MEDS ORDERED: methylPREDNISolone SOD SUCC 40 MG/ML VIAL ONE (23:49)
[2021-05-14] MEDS: methylPREDNISolone SOD SUCC 40 MG/ML VIAL IV SCH ×4 (00:01→21:45)
[2021-05-14 04:00] VITALS: BP 136/42
--- NOTE | 2021-05-14 04:44 | NUR ---
Patient slept the night, no sob no chest pain, no coughing noted, no congestion noted, rendered total assist with adl's, kept comfortable.
[2021-05-14] MEDS: PANTOPRAZOLE SODIUM 40 MG TABLET.DR PO SCH (06:27)
[2021-05-14] MEDS: GLUCERNA SHAKE VANILLA 237 ML CAN PO SCH ×3 (08:26→17:24)
[2021-05-14] MEDS: CALCIUM CARB/VITAMIN D 500MG-200UNITS TABLET PO SCH ×2 (09:37→17:28)
[2021-05-14] MEDS: METOCLOPRAMIDE HCL 5 MG TABLET PO SCH ×3 (09:37→17:25)
[2021-05-14] MEDS: CYANOCOBALAMIN 1,000 MCG TABLET PO SCH (09:37)
[2021-05-14] MEDS: hydrALAZINE HCL 50 MG TABLET PO SCH ×2 (09:37→20:17)
[2021-05-14] MEDS: AMLODIPINE 5 MG TABLET PO SCH (09:37)
[2021-05-14] MEDS: BRIMONIDINE-P 0.1% OPHTH DROP 5 ML DROPS EACHEYE SCH ×2 (09:38→17:25)
[2021-05-14] MEDS: CICLOPIROX 0.77% CREAM 30 GM TUBE TP SCH ×2 (09:38→17:25)
[2021-05-14 11:41] VITALS: BP 95/51
[2021-05-14] MEDS: ACETAMINOPHEN 325 MG TABLET PO PRN (14:06)
[2021-05-14 15:51] VITALS: BP 104/40
--- NOTE | 2021-05-14 19:40 | NUR ---
Received patient in bed. AAOX3, Georgian speaking. Able to make needs known. On 1L O2. Noted with occasional cough. HOB elevated, pt is aspiration precautions. Safety precautions in place. Will continue to monitor.
[2021-05-14 20:00] VITALS: BP 100/50
[2021-05-14] MEDS: MONTELUKAST SODIUM 10 MG TABLET PO SCH (20:17)
[2021-05-14] MEDS: FAMOTIDINE 20 MG TABLET PO SCH (20:17)
[2021-05-14] MEDS: ATORVASTATIN 10 MG TABLET PO SCH (20:18)
[2021-05-14] MEDS: MELATONIN 3 MG TABLET PO SCH (20:18)
[2021-05-14] MEDS: MIRTAZAPINE 15 MG TABLET PO SCH (20:18)
[2021-05-15 04:00] VITALS: BP 126/55
[2021-05-15] MEDS: methylPREDNISolone SOD SUCC 40 MG/ML VIAL IV SCH ×3 (05:56→21:08)
[2021-05-15] MEDS: PANTOPRAZOLE SODIUM 40 MG TABLET.DR PO SCH (06:00)
--- NOTE | 2021-05-15 06:20 | NUR ---
Patient slept through the night. Patient denies SOB, chest pain or dizziness. Compliant with medication regimen. Sinus rhythm on telemonitor. 1L on O2 via nasal cannula. IV access patent and intact. Urine collected via straight catheter, send to lab. Safety precautions maintained. Will endorse to day shift.
[2021-05-15 06:27] LABS: HEMATOCRIT 39.2 % (31.2-41.9); MEAN CORPUSCULAR HEMOGLOBIN 26.1 uug (24.7-32.8); MEAN CORPUSCULAR VOLUME 78.4 fL (75.5-95.3); PLATELET COUNT (AUTO) 510 K/uL (179-408)
[2021-05-15 06:47] LABS: BILIRUBIN,TOTAL 0.2 mg/dL (0.2-1.0); CREATININE 0.9 mg/dL (0.6-1.3); POTASSIUM 4.6 mmol/L (3.5-5.1); TOTAL PROTEIN, SERUM 5.9 g/dL (6.4-8.2)
[2021-05-15 07:05] LABS: *BILIRUBIN,URIN NEGATIVE (NEGATIVE); *BLOOD, URINE NEGATIVE (NEGATIVE); *CLARITY,URINE SLIGHTLY CLOUDY (CLEAR); *COLOR,URINE YELLOW (YELLOW); *KETONES,URINE NEGATIVE (NEGATIVE); *UROBILINOGEN,URINE 0.2 E.U./dl (NORMAL); LEUKOCYTE ESTERASE ,URINE 3+ (NEGATIVE); NITRITE, URINE NEGATIVE (NEGATIVE); PH,URINE 8.5 (5.0-8.0); UGLUCOSE NEGATIVE (NEGATIVE)
[2021-05-15 07:58] LABS: RBC,URINE 0-3 /HPF (0-3)
[2021-05-15 07:59] LABS: BACTERIA,URINE MODERATE /HPF (NONE SEEN); SQUAMOUS EPITHELIAL CELL,UR FEW /HPF (NONE SEEN); TRIPLE PHOSPHATE CRYSTAL,UR MODERATE /HPF (NONE SEEN); URINE AMORPHOUS PHOSPHATES MANY /HPF
[2021-05-15] MEDS: METOCLOPRAMIDE HCL 5 MG TABLET PO SCH ×3 (08:56→16:55)
[2021-05-15] MEDS: CYANOCOBALAMIN 1,000 MCG TABLET PO SCH (08:57)
[2021-05-15] MEDS: hydrALAZINE HCL 50 MG TABLET PO SCH ×2 (08:57→20:23)
[2021-05-15] MEDS: CALCIUM CARB/VITAMIN D 500MG-200UNITS TABLET PO SCH ×2 (08:57→16:55)
[2021-05-15] MEDS: GLUCERNA SHAKE VANILLA 237 ML CAN PO SCH ×3 (08:57→13:05)
[2021-05-15] MEDS: AMLODIPINE 5 MG TABLET PO SCH (08:57)
[2021-05-15] MEDS: CICLOPIROX 0.77% CREAM 30 GM TUBE TP SCH ×2 (08:58→16:56)
[2021-05-15] MEDS: BRIMONIDINE-P 0.1% OPHTH DROP 5 ML DROPS EACHEYE SCH ×2 (08:58→16:55)
[2021-05-15 11:13] VITALS: BP 128/41
[2021-05-15 15:31] VITALS: BP 150/64
--- NOTE | 2021-05-15 17:58 | NUR ---
Patient remained stable during the shift. no acute distress identified. aspiration precaution maintained. all needs attended.No SOB identified. frequent checks done. safety measures maintained. will endorse to the next shift for continuity of care.
[2021-05-15 20:00] VITALS: BP_SYST 106; BP_SYST 111; BP_DIAS 53; BP_DIAS 56
[2021-05-15] MEDS: ACETAMINOPHEN 325 MG TABLET PO PRN (20:22)
[2021-05-15] MEDS: FAMOTIDINE 20 MG TABLET PO SCH (20:22)
[2021-05-15] MEDS: MIRTAZAPINE 15 MG TABLET PO SCH (20:22)
[2021-05-15] MEDS: MONTELUKAST SODIUM 10 MG TABLET PO SCH (20:22)
[2021-05-15] MEDS: MELATONIN 3 MG TABLET PO SCH (20:23)
[2021-05-15] MEDS: ATORVASTATIN 10 MG TABLET PO SCH (20:23)
[2021-05-16 04:00] VITALS: BP 131/47
--- NOTE | 2021-05-16 05:30 | NUR ---
Asleep in bed. No distress noted. Denies SOB. On 0.5L and requests to keep oxygen on. IV site intact. No other issues or concerns at this time, will endorse to day shift.
[2021-05-16] MEDS: PANTOPRAZOLE SODIUM 40 MG TABLET.DR PO SCH (06:19)
[2021-05-16] MEDS: methylPREDNISolone SOD SUCC 40 MG/ML VIAL IV SCH ×2 (06:19→13:03)
[2021-05-16] MEDS: BRIMONIDINE-P 0.1% OPHTH DROP 5 ML DROPS EACHEYE SCH ×2 (08:54→17:18)
[2021-05-16] MEDS: CYANOCOBALAMIN 1,000 MCG TABLET PO SCH (09:00)
[2021-05-16] MEDS: hydrALAZINE HCL 50 MG TABLET PO SCH (09:00)
[2021-05-16] MEDS: CALCIUM CARB/VITAMIN D 500MG-200UNITS TABLET PO SCH ×2 (09:00→17:17)
[2021-05-16] MEDS ORDERED: ERGOCALCIFEROL 50,000 UNIT CAPSULE PO SCH (09:00)
[2021-05-16] MEDS: AMLODIPINE 5 MG TABLET PO SCH (09:01)
[2021-05-16] MEDS: METOCLOPRAMIDE HCL 5 MG TABLET PO SCH ×3 (09:01→17:17)
[2021-05-16] MEDS: GLUCERNA SHAKE VANILLA 237 ML CAN PO SCH (09:02)
[2021-05-16] MEDS: CICLOPIROX 0.77% CREAM 30 GM TUBE TP SCH ×2 (09:05→17:18)
[2021-05-16 12:06] VITALS: BP 116/59
--- NOTE | 2021-05-16 15:54 | NUR ---
Remain in bed rest. AAOX3, Gambian speaking only. Able to make needs known. On O2 via N/C at 1 Liter/min no SOB or respiratory distress noted. Noted with occasional cough. HOB elevated, pt is aspiration precautions. Safety precautions in place. Will continue to monitor closely for comfort and safety.
[2021-05-16 16:18] VITALS: BP 100/52
--- NOTE | 2021-05-16 19:30 | NUR ---
Discharge is complete. All belongings accounted for. Pt in stable condition at this time. Denies SOB or any difficulty breathing. Denies pain. Midline removed intact.
--- NOTE | 2021-05-16 20:03 | NUR ---
Daughter Katiana called for picker packer. ETA 45 min
--- NOTE | 2021-05-16 21:11 | NUR ---
Pt left floor in stable condition with all belongings.
== END 2021-05-16 21:10 | disposition home health service (06) | DRG 191 ==
LOC: ER 21:26 → TELE3 05-08 02:44 → MEDSURG3 05-08 08:10 → TELE3 05-08 13:44 → MEDSURG3 05-12 10:05
PROVIDERS: ADMIT Internal Medicine; ATTEND Internal Medicine
PROC: 05H533Z Insertion of Infusion Device into Right Subclavian Vein, Percutaneous Approach (ICD-10-PCS; principal; 2021-05-09)
PROC: B546ZZA Ultrasonography of Right Subclavian Vein, Guidance (ICD-10-PCS; 2021-05-09)
DX: J44.1 Chronic obstructive pulmonary disease with (acute) exacerbation (principal); I50.32 Chronic diastolic (congestive) heart failure; E87.1 Hypo-osmolality and hyponatremia; N17.9 Acute kidney failure, unspecified; J96.10 Chronic respiratory failure, unspecified whether with hypoxia or hypercapnia; I11.0 Hypertensive heart disease with heart failure; E78.5 Hyperlipidemia, unspecified; F03.90 Unspecified dementia, unspecified severity, without behavioral disturbance, psychotic disturbance, mood disturbance, and anxiety; M81.0 Age-related osteoporosis without current pathological fracture; Z88.1 Allergy status to other antibiotic agents; Z20.822 Contact with and (suspected) exposure to COVID-19; I35.0 Nonrheumatic aortic (valve) stenosis; R77.8 Other specified abnormalities of plasma proteins; Z99.81 Dependence on supplemental oxygen; K44.9 Diaphragmatic hernia without obstruction or gangrene
CPT/HCPCS: 36415; 71045; 83605; 83735; 83935; 84100; 84300; 84443; 84484; 84550; 85025; 87040; 87086; 93005; 94640; 97161; A4663; C1758; G0378; J2270; J2405; J2920; J2930; J3590; J8499; J8597

== ENCOUNTER 2021-12-08 14:14 | Inpatient (IN) | payer MEDICARE, OTHER ==
[~2021-12-08] VITALS: Ht 154.9 cm; Wt 48.5 kg
[~2021-12-08 14:14] MED LIST changes: +ERGO500040 PO
[2021-12-08 15:09] LABS: HEMATOCRIT 37.8 % (31.2-41.9); MEAN CORPUSCULAR HEMOGLOBIN 26.7 uug (24.7-32.8); MEAN CORPUSCULAR VOLUME 81.7 fL (75.5-95.3); PLATELET COUNT (AUTO) 406 K/uL (179-408)
[2021-12-08] MEDS ORDERED: methylPREDNISolone SOD SUCC 40 MG/ML VIAL IV ONE (15:15)
[2021-12-08] MEDS ORDERED: FAMOTIDINE. 20 MG/2 ML VIAL IV ONE ×2 (15:15→17:37)
[2021-12-08 15:20] LABS: CARBON DIOXIDE 28 mmol/L (21-32); CHLORIDE 92 mmol/L (98-107); CREATININE 0.7 mg/dL (0.6-1.3); GLUCOSE 123 mg/dL (74-106); POTASSIUM 4.4 mmol/L (3.5-5.1); UREA NITROGEN, BLOOD 12 mg/dL (7-18)
[2021-12-08] MEDS ORDERED: MELA5TAB PO (15:20)
[2021-12-08] MEDS ORDERED: CYAN10006 PO (15:20)
[2021-12-08] MEDS ORDERED: AMLO-212 PO (15:20)
[2021-12-08] MEDS ORDERED: MONT10TA22 PO (15:20)
[2021-12-08] MEDS ORDERED: ATOR10TA PO (15:20)
[2021-12-08] MEDS ORDERED: HYDR-4077 PO (15:20)
[2021-12-08] MEDS ORDERED: LACT10SO3 PO (15:20)
[2021-12-08] MEDS ORDERED: CALC1POW43 PO (15:20)
[2021-12-08] MEDS ORDERED: OMEP40CA21 PO (15:20)
[2021-12-08] MEDS ORDERED: DICL100G26 TP (15:20)
[2021-12-08] MEDS ORDERED: IPRA0.2S48 NEB (15:20)
[2021-12-08] MEDS ORDERED: ALBU2.5V38 NEB (15:20)
[2021-12-08] MEDS ORDERED: MECL-159 PO (15:20)
[2021-12-08] MEDS ORDERED: BRIM5DRO3 EACHEYE (15:20)
[2021-12-08 15:28] LABS: ALANINE AMINOTRANSFERASE 23 U/L (14-59); ALKALINE PHOSPHATASE 141 U/L (50-136); ASPARTATE AMINOTRANSFERASE 19 U/L (15-37); BILIRUBIN,DIRECT 0.1 mg/dL (0.0-0.2); BILIRUBIN,TOTAL 0.5 mg/dL (0.2-1.0); TOTAL PROTEIN, SERUM 7.5 g/dL (6.4-8.2)
[2021-12-08] MEDS ORDERED: ALBUTEROL SULFATE 2.5 MG/3 ML NEBU ONE (15:59)
[2021-12-08] MEDS ORDERED: ALBUTEROL SULFATE 2.5 MG/3 ML NEBU NEB ONE (16:00)
[2021-12-08] MEDS ORDERED: ASPIRIN 81 MG TAB.CHEW PO ONE (17:15)
[2021-12-08] MEDS ORDERED: ASPIRIN 81 MG TAB.CHEW ONE (17:35)
[2021-12-08] MEDS ORDERED: methylPREDNISolone SOD SUCC 40 MG/ML VIAL ONE (17:36)
--- NOTE | 2021-12-08 17:55 | NUR ---
Pt stated she has a bad EATON, no dizziness. MD notified
--- NOTE | 2021-12-08 18:04 | NUR ---
pt resting in bed, no distress noted
[2021-12-08] MEDS ORDERED: ACETAMINOPHEN 325 MG TABLET ONE (18:26)
[2021-12-08] MEDS ORDERED: ACETAMINOPHEN 325 MG TABLET PO ONE (18:30)
--- NOTE | 2021-12-08 19:53 | NUR ---
report given to Maribel CONNER
--- NOTE | 2021-12-08 20:03 | NUR ---
collected MRSA nares. sent to lab
--- NOTE | 2021-12-08 20:20 | NUR ---
Pt. admitted to TELE room 306 , under care of Gray Lema Belongs List completed
[2021-12-08 21:20] VITALS: BP 171/60
[2021-12-08 22:08] VITALS: BP 165/71
--- NOTE | 2021-12-08 22:11 | NUR ---
Patient transported via stretcher from ED. AAOx3 No distress noted. Pt oriented to room assessment done PM care done Ptmade comfortable in bed call light within reach. Pt instructed to call for assistance.
[2021-12-09] VITALS: BP 156/56
[2021-12-09 04:00] VITALS: BP 133/67
[2021-12-09] MEDS ORDERED: MAGNESIUM HYDROXIDE 30 ML LIQUID UDC PO PRN (04:45)
[2021-12-09] MEDS ORDERED: ONDANSETRON 4 MG/2 ML VIAL IV PRN (04:45)
[2021-12-09 07:30] LABS: THYROID STIMULATING HORMONE 0.774 mIU/mL (0.358-3.740)
[2021-12-09] MEDS ORDERED: methylPREDNISolone SOD SUCC 125 MG/2 ML VIAL IV ONE (08:00)
--- NOTE | 2021-12-09 08:00 | NUR ---
RECEIVED PATIENT IN BED AWAKE ALERT AND ANSWERS QUESTIONS APPROPRIATELY, SIERRA LEONEAN SPEAKING. DENIES PAIN OR C/O DISTRESS
[2021-12-09] MEDS: ASPIRIN 81 MG TAB.CHEW PO SCH (08:29)
[2021-12-09] MEDS: AMLODIPINE 10 MG TABLET PO SCH (08:29)
[2021-12-09 12:00] VITALS: BP 134/54
--- NOTE | 2021-12-09 12:00 | NUR ---
NO ACUTE CHANGE FROM MORNING ASSESSMENT.
[2021-12-09] MEDS ORDERED: ALBU8HFA4 INH (13:18)
[2021-12-09] MEDS ORDERED: MECLIZINE HCL 25 MG TABLET PO PRN (15:45)
--- NOTE | 2021-12-09 16:03 | NUR ---
NO SS OF DISTRESS,RA SATURATION 98% DENIES PAIN . REMAINS SR ON MONITOR
[2021-12-09] MEDS ORDERED: BRIMONIDINE-P 0.1% OPHTH DROP 5 ML DROPS EACHEYE SCH (17:00)
[2021-12-09 17:05] VITALS: BP 117/63
[2021-12-09] MEDS: CALCIUM CARB/VITAMIN D 500MG-200UNITS TABLET PO SCH (17:21)
[2021-12-09] MEDS: MONTELUKAST SODIUM 10 MG TABLET PO SCH (17:21)
[2021-12-09] MEDS: BRIMONIDINE 0.2% OPHT DROP 10 ML BOTTLE EACHEYE SCH (17:22)
[2021-12-09] MEDS ORDERED: ALBUTEROL SULFATE 8 GM HFA.AER.AD INH SCH (18:00)
[2021-12-09] MEDS: IPRATROPIUM BROMIDE 0.5 MG/2.5 ML NEBU NEB SCH (19:10)
[2021-12-09] MEDS: ALBUTEROL SULFATE 2.5 MG/ 0.5 ML NEBU NEB SCH (19:10)
[2021-12-09 20:00] VITALS: BP 123/82
[2021-12-09] MEDS: ATORVASTATIN 10 MG TABLET PO SCH (20:29)
[2021-12-09] MEDS: hydrALAZINE HCL 50 MG TABLET PO SCH (20:29)
[2021-12-09] MEDS: MELATONIN 3 MG TABLET PO SCH (20:30)
[2021-12-09] MEDS: FAMOTIDINE 20 MG TABLET PO SCH (20:32)
[2021-12-09] MEDS ORDERED: Medication Not On Formulary EA (Melatonin 10 MG) PO SCH (21:00)
[2021-12-09] MEDS: ZOLPIDEM 5 MG TABLET PO PRN (22:08)
[2021-12-10 00:09] VITALS: BP 135/52
[2021-12-10] MEDS: ALBUTEROL SULFATE 2.5 MG/ 0.5 ML NEBU NEB SCH ×4 (00:47→17:50)
[2021-12-10] MEDS: IPRATROPIUM BROMIDE 0.5 MG/2.5 ML NEBU NEB SCH ×4 (00:47→17:49)
[2021-12-10 04:00] VITALS: BP 128/45
[2021-12-10 06:54] LABS: HEMATOCRIT 30.2 % (31.2-41.9); MEAN CORPUSCULAR VOLUME 80.6 fL (75.5-95.3); PLATELET COUNT (AUTO) 381 K/uL (179-408)
[2021-12-10 07:32] LABS: CREATININE 1.1 mg/dL (0.6-1.3); MAGNESIUM 1.8 mg/dL (1.8-2.4); PHOSPHOROUS 3.5 mg/dL (2.5-4.9); POTASSIUM 4.3 mmol/L (3.5-5.1)
--- NOTE | 2021-12-10 08:00 | NUR ---
RECEIVED PT IN BED AWAKE ALERT AND ANSWERS QUESTIONS APPROPRIATELY, DENIES PAIN NO SS OF DISTRESS SATURATING 98% ON RA. SR/ST ON MONITOR
[2021-12-10] MEDS: BRIMONIDINE 0.2% OPHT DROP 10 ML BOTTLE EACHEYE SCH ×2 (08:28→16:39)
[2021-12-10] MEDS: ASPIRIN 81 MG TAB.CHEW PO SCH (08:29)
[2021-12-10] MEDS: CALCIUM CARB/VITAMIN D 500MG-200UNITS TABLET PO SCH ×2 (08:29→16:39)
[2021-12-10] MEDS: CYANOCOBALAMIN 1,000 MCG TABLET PO SCH (08:29)
[2021-12-10] MEDS: REMEDY ESSENTIAL ZINC PASTE 113 GM TP PRN (08:30)
[2021-12-10] MEDS: hydrALAZINE HCL 50 MG TABLET PO SCH (08:33)
[2021-12-10] MEDS: AMLODIPINE 10 MG TABLET PO SCH (09:00)
[2021-12-10] MEDS: methylPREDNISolone SOD SUCC 125 MG/2 ML VIAL IV SCH ×2 (09:19→18:28)
[2021-12-10] MEDS ORDERED: levoFLOXacin 500 MG/D5W 500 MG in PREMIXED 1 EACH IV ONE (10:00)
[2021-12-10 10:10] LABS: IRON, SERUM 20 ug/dL (50-175)
--- NOTE | 2021-12-10 10:46 | NUR ---
WOUND CARE CONSULT: PT PRESENTS WITH SACRAL SCARRING AND FRAGILE SCAR TO MIDBACK, PRESENT ON ADMISSION. PT IS INCONTINENT. RECOMMENDATIONS MADE FOR SKIN PROTECTION. DISCUSSED WITH NURSING STAFF. MD IN AGREEMENT WITH PLAN OF CARE.
[2021-12-10 11:35] VITALS: BP 95/33
--- NOTE | 2021-12-10 15:30 | NUR ---
STARTED ON IV LEVAQUIN NO ADVERSE REACTION NOTED
[2021-12-10 15:39] LABS: FERRITIN 29 ng/mL (8-252)
[2021-12-10] MEDS: MONTELUKAST SODIUM 10 MG TABLET PO SCH (16:39)
[2021-12-10 17:00] VITALS: BP 121/47
--- NOTE | 2021-12-10 18:00 | NUR ---
DR MAE NOTIFIED OF PA C/O SOB ACCOMPANIED BY WHEEZING, NOTED 5 BEATS OF RAPID HR AND 2 MISS BEATS. ADVISED TO GIVE HHN AND GIVE SOLU MEDROL DOSE.
--- NOTE | 2021-12-10 18:10 | NUR ---
HHN tx given as requested by RN for pt complaining of s.o.b.. Post tx, pt sts some relief, feels pain in her back, throat, and head, RN notified.. pt is anxious at this time, RN aware.. RN calling , waiting for orders..
[2021-12-10 20:00] VITALS: BP 135/69
[2021-12-10] MEDS: MELATONIN 3 MG TABLET PO SCH (21:00)
[2021-12-10] MEDS: ATORVASTATIN 10 MG TABLET PO SCH (21:00)
[2021-12-10] MEDS: FAMOTIDINE 20 MG TABLET PO SCH (21:00)
[2021-12-11] VITALS: BP 171/68
[2021-12-11] MEDS: IPRATROPIUM BROMIDE 0.5 MG/2.5 ML NEBU NEB SCH ×4 (01:10→19:21)
[2021-12-11] MEDS: ALBUTEROL SULFATE 2.5 MG/ 0.5 ML NEBU NEB SCH ×4 (01:10→19:21)
[2021-12-11 04:00] VITALS: BP 127/49
--- NOTE | 2021-12-11 06:00 | NUR ---
[id number] IS VENEZ[facility]ELAN-SPKG ONLY. PT HAS BEEN A/OX 2-3. PT HAS O2 3L/NC. PT DENIES ANY S/S OF PAIN. IV I/P-H.L I/P VIA RIGHT HAND. PT HAS U/O VIA LINDSEY. PT HAS 24HR URINE [employer].-CLR DUE AT 12/11/21-1400. PT HAS BEEN NPO AFTER MN FOR CT-SCAN OF ABD WITHOUT CONTRAST. VS HAVE BEEN STABLE. PT ENDORSED TO DAYSINFT RN IN STABLE COND. DEVIN CONNER
[2021-12-11 07:06] LABS: *IMMUNOGLOBULIN G, SERUM 929 mg/dL (586-1602); IMMUNOGLOBULIN M, SERUM 42 mg/dL (26-217)
--- NOTE | 2021-12-11 08:00 | NUR ---
AWAKE ALERT AND CONFUSED X2, C/O BACK PAIN 7/10, PRN GIVEN AND OBSERVED. SR/ST ON MONITOR
[2021-12-11 08:06] LABS: CANCER ANTIGEN 15-3 27.5 U/mL (0.0-25.0)
[2021-12-11] MEDS: methylPREDNISolone SOD SUCC 125 MG/2 ML VIAL IV SCH ×2 (08:51→21:29)
[2021-12-11] MEDS: AMLODIPINE 10 MG TABLET PO SCH (08:52)
[2021-12-11] MEDS: ASPIRIN 81 MG TAB.CHEW PO SCH (08:52)
[2021-12-11] MEDS: CYANOCOBALAMIN 1,000 MCG TABLET PO SCH (08:52)
[2021-12-11] MEDS: ACETAMINOPHEN 325 MG TABLET PO PRN ×3 (08:52→21:29)
[2021-12-11] MEDS: CALCIUM CARB/VITAMIN D 500MG-200UNITS TABLET PO SCH ×2 (08:52→17:36)
[2021-12-11] MEDS: REMEDY ESSENTIAL ZINC PASTE 113 GM TP PRN (08:53)
[2021-12-11] MEDS: LEVOFLOXACIN/D5W 250 MG in PREMIX 1 EA IV SCH (08:54)
[2021-12-11] MEDS: BRIMONIDINE 0.2% OPHT DROP 10 ML BOTTLE EACHEYE SCH ×2 (08:54→17:36)
[2021-12-11 11:07] LABS: A/G RATIO 1.2 (0.7-1.7); ALBUMIN 3.5 g/dL (2.9-4.4); ALPHA-1-GLOBULIN 0.3 g/dL (0.0-0.4); ALPHA-2-GLOBULIN 0.8 g/dL (0.4-1.0); M-SPIKE Not Observed g/dL (Not Observed)
[2021-12-11 12:39] VITALS: BP 138/66
--- NOTE | 2021-12-11 13:00 | NUR ---
PATIENT NOTED COUGHING DURING MEAL WITH WHEEZING. SWALLOW EVAL ORDERED. CONTINUE WITH BREATHING TX ORDERED
[2021-12-11] MEDS: SOD FERRIC GLUC COMPLX/SUCROSE 125 MG in IV NORMAL SALINE 100 ML IV SCH (14:02)
--- NOTE | 2021-12-11 14:28 | NUR ---
SEEN BY BANK ADVISOR FOR FOLLOW-UP WITH ORDERS. SEE NOTES.
[2021-12-11] MEDS: GLUCERNA SHAKE 237 ML CAN PO SCH ×2 (14:45→17:36)
[2021-12-11 16:09] VITALS: BP 114/62
[2021-12-11] MEDS: MONTELUKAST SODIUM 10 MG TABLET PO SCH (17:36)
[2021-12-11 20:00] VITALS: BP 121/53
[2021-12-11] MEDS: MELATONIN 3 MG TABLET PO SCH (21:29)
[2021-12-11] MEDS: FAMOTIDINE 20 MG TABLET PO SCH (21:29)
[2021-12-11] MEDS: ATORVASTATIN 10 MG TABLET PO SCH (21:29)
[2021-12-12] VITALS: BP 112/49
[2021-12-12] MEDS: IPRATROPIUM BROMIDE 0.5 MG/2.5 ML NEBU NEB SCH ×4 (01:22→21:32)
[2021-12-12] MEDS: ALBUTEROL SULFATE 2.5 MG/ 0.5 ML NEBU NEB SCH ×4 (01:23→21:32)
[2021-12-12 04:00] VITALS: BP 150/47
[2021-12-12 07:05] LABS: CREATININE 1.3 mg/dL (0.6-1.3); POTASSIUM 5.1 mmol/L (3.5-5.1)
[2021-12-12] MEDS: BRIMONIDINE 0.2% OPHT DROP 10 ML BOTTLE EACHEYE SCH ×2 (08:15→17:02)
[2021-12-12] MEDS: methylPREDNISolone SOD SUCC 125 MG/2 ML VIAL IV SCH ×2 (08:15→21:05)
[2021-12-12] MEDS: GLUCERNA SHAKE 237 ML CAN PO SCH ×2 (08:15→17:02)
[2021-12-12] MEDS: CYANOCOBALAMIN 1,000 MCG TABLET PO SCH (08:16)
[2021-12-12] MEDS: ASPIRIN 81 MG TAB.CHEW PO SCH (08:16)
[2021-12-12] MEDS: AMLODIPINE 10 MG TABLET PO SCH (08:16)
[2021-12-12] MEDS: CALCIUM CARB/VITAMIN D 500MG-200UNITS TABLET PO SCH ×2 (08:16→17:02)
[2021-12-12] MEDS: LEVOFLOXACIN/D5W 250 MG in PREMIX 1 EA IV SCH (10:09)
[2021-12-12 11:19] VITALS: BP 140/56
[2021-12-12] MEDS: ACETAMINOPHEN 325 MG TABLET PO PRN (12:00)
[2021-12-12] MEDS: SOD FERRIC GLUC COMPLX/SUCROSE 125 MG in IV NORMAL SALINE 100 ML IV SCH (14:27)
[2021-12-12 16:40] VITALS: BP 132/62
[2021-12-12] MEDS: MONTELUKAST SODIUM 10 MG TABLET PO SCH (17:01)
[2021-12-12 20:57] VITALS: BP 120/55
[2021-12-12] MEDS: ATORVASTATIN 10 MG TABLET PO SCH (21:04)
[2021-12-12] MEDS: FAMOTIDINE 20 MG TABLET PO SCH (21:05)
[2021-12-12] MEDS: MELATONIN 3 MG TABLET PO SCH (21:05)
[2021-12-13 00:38] VITALS: BP 134/62
[2021-12-13] MEDS: IPRATROPIUM BROMIDE 0.5 MG/2.5 ML NEBU NEB SCH ×4 (01:44→21:11)
[2021-12-13] MEDS: ALBUTEROL SULFATE 2.5 MG/ 0.5 ML NEBU NEB SCH ×4 (01:45→21:11)
[2021-12-13 04:31] VITALS: BP 131/53
[2021-12-13 06:18] LABS: MEAN CORPUSCULAR HEMOGLOBIN 27.8 uug (24.7-32.8); MEAN CORPUSCULAR VOLUME 80.6 fL (75.5-95.3); PLATELET COUNT (AUTO) 391 K/uL (179-408)
[2021-12-13] MEDS: GLUCERNA SHAKE 237 ML CAN PO SCH ×2 (08:00→16:26)
[2021-12-13 08:10] LABS: BILIRUBIN,TOTAL 0.3 mg/dL (0.2-1.0); CREATININE 1.3 mg/dL (0.6-1.3); MAGNESIUM 2.5 mg/dL (1.8-2.4); PHOSPHOROUS 3.1 mg/dL (2.5-4.9); POTASSIUM 4.8 mmol/L (3.5-5.1); TOTAL PROTEIN, SERUM 6.5 g/dL (6.4-8.2)
[2021-12-13] MEDS: ASPIRIN 81 MG TAB.CHEW PO SCH (09:51)
[2021-12-13] MEDS: CALCIUM CARB/VITAMIN D 500MG-200UNITS TABLET PO SCH ×2 (09:52→16:25)
[2021-12-13] MEDS: AMLODIPINE 10 MG TABLET PO SCH (09:52)
[2021-12-13] MEDS: methylPREDNISolone SOD SUCC 125 MG/2 ML VIAL IV SCH ×2 (09:52→20:03)
[2021-12-13] MEDS: CYANOCOBALAMIN 1,000 MCG TABLET PO SCH (09:52)
[2021-12-13] MEDS: BRIMONIDINE 0.2% OPHT DROP 10 ML BOTTLE EACHEYE SCH ×2 (09:59→16:26)
[2021-12-13] MEDS: LEVOFLOXACIN/D5W 250 MG in PREMIX 1 EA IV SCH (10:32)
[2021-12-13 11:31] VITALS: BP 134/62
[2021-12-13] MEDS: SOD FERRIC GLUC COMPLX/SUCROSE 125 MG in IV NORMAL SALINE 100 ML IV SCH (14:09)
[2021-12-13 16:00] VITALS: BP 129/67
[2021-12-13] MEDS: MONTELUKAST SODIUM 10 MG TABLET PO SCH (17:01)
--- NOTE | 2021-12-13 17:02 | NUR ---
no events noted during shift
[2021-12-13] MEDS ORDERED: POLYVINYL ALCOHOL OPHT DROPS 15 ML BOTTLE EACHEYE PRN (18:00)
[2021-12-13] MEDS: FAMOTIDINE 20 MG TABLET PO SCH (20:36)
[2021-12-13] MEDS: ATORVASTATIN 10 MG TABLET PO SCH (20:36)
[2021-12-13] MEDS: MELATONIN 3 MG TABLET PO SCH (20:36)
[2021-12-13 21:06] VITALS: BP 131/60
[2021-12-14] MEDS: IPRATROPIUM BROMIDE 0.5 MG/2.5 ML NEBU NEB SCH ×4 (01:30→20:33)
[2021-12-14] MEDS: ALBUTEROL SULFATE 2.5 MG/ 0.5 ML NEBU NEB SCH ×4 (01:30→20:33)
[2021-12-14 04:00] VITALS: BP 133/49
[2021-12-14 06:20] LABS: HEMATOCRIT 34.9 % (31.2-41.9); MEAN CORPUSCULAR VOLUME 80.1 fL (75.5-95.3); PLATELET COUNT (AUTO) 385 K/uL (179-408)
[2021-12-14 07:23] LABS: BILIRUBIN,TOTAL 0.4 mg/dL (0.2-1.0); CREATININE 1.2 mg/dL (0.6-1.3); POTASSIUM 4.5 mmol/L (3.5-5.1); TOTAL PROTEIN, SERUM 5.4 g/dL (6.4-8.2)
[2021-12-14] MEDS: CALCIUM CARB/VITAMIN D 500MG-200UNITS TABLET PO SCH ×2 (08:43→17:06)
[2021-12-14] MEDS: CYANOCOBALAMIN 1,000 MCG TABLET PO SCH (08:43)
[2021-12-14] MEDS: ASPIRIN 81 MG TAB.CHEW PO SCH (08:43)
[2021-12-14] MEDS: methylPREDNISolone SOD SUCC 125 MG/2 ML VIAL IV SCH ×2 (08:44→20:30)
[2021-12-14] MEDS: AMLODIPINE 10 MG TABLET PO SCH (08:44)
[2021-12-14] MEDS: GLUCERNA SHAKE 237 ML CAN PO SCH ×2 (08:49→17:07)
[2021-12-14] MEDS: BRIMONIDINE 0.2% OPHT DROP 10 ML BOTTLE EACHEYE SCH ×2 (08:55→17:06)
--- NOTE | 2021-12-14 09:00 | NUR ---
AWAKE ALERT WITH CONFUSSION AND DISORIENTATION ABLE TO MAKE SIMPLE NEEDS KNOWN EVEN THOUGH SHE TENDS TO REPEAT SELF AND DOES NOT KNOW WHAT SHE ACTUALLY WANTS MAX ASSIST FOR ALL ADL ON O2 AT 1L/M BY NASAL CANULA WITH NO SHORTNESS OF BREATH CALL LIGHTS AND PERSONAL BELONGINGS ARE WITHIN EASY REACH MADE COMFORTABLE WILL CONTINUE TO OBSERVE.
[2021-12-14] MEDS: LEVOFLOXACIN/D5W 250 MG in PREMIX 1 EA IV SCH (10:12)
[2021-12-14 11:08] LABS: *OCCULT BLOOD STOOL POSITIVE (NEGATIVE)
--- NOTE | 2021-12-14 12:22 | NUR ---
DR FLAHERTY FIRE INSPECTOR JULIAN HERE SEEN PATIENT WITH NEW ORDERS AND NOTED.
[2021-12-14 12:38] VITALS: BP 107/47
[2021-12-14] MEDS: FUROSEMIDE 20 MG/2 ML VIAL IV SCH (12:54)
[2021-12-14] MEDS: SOD FERRIC GLUC COMPLX/SUCROSE 125 MG in IV NORMAL SALINE 100 ML IV SCH (14:11)
[2021-12-14] MEDS: MONTELUKAST SODIUM 10 MG TABLET PO SCH (17:06)
[2021-12-14 17:10] LABS: *BILIRUBIN,URIN NEGATIVE (NEGATIVE); *CLARITY,URINE CLEAR (CLEAR); *COLOR,URINE YELLOW (YELLOW); *KETONES,URINE NEGATIVE (NEGATIVE); *UROBILINOGEN,URINE 0.2 E.U./dl (NORMAL); LEUKOCYTE ESTERASE ,URINE 2+ (NEGATIVE); NITRITE, URINE NEGATIVE (NEGATIVE); UGLUCOSE NEGATIVE (NEGATIVE)
[2021-12-14 17:21] VITALS: BP 112/47
[2021-12-14 17:24] LABS: *BLOOD, URINE TRACE (NEGATIVE)
[2021-12-14 17:25] LABS: BACTERIA,URINE NONE SEEN /HPF (NONE SEEN); RBC,URINE 0-3 /HPF (0-3); SQUAMOUS EPITHELIAL CELL,UR FEW /HPF (NONE SEEN)
--- NOTE | 2021-12-14 18:00 | NUR ---
PATIENT HAD ONE EPISODE OF LOOSE BROWN STOOL INCONTINENT IN THE DIAPER UNABLE TO COLLECT YET DUE TO C DIFF POLICY WILL COLLECT ON THE 4TH WITHIN 24 HOURS.
[2021-12-14 20:00] VITALS: BP 120/50
[2021-12-14] MEDS: MELATONIN 3 MG TABLET PO SCH (20:30)
[2021-12-14] MEDS: ATORVASTATIN 10 MG TABLET PO SCH (20:30)
[2021-12-14] MEDS: FAMOTIDINE 20 MG TABLET PO SCH (20:30)
[2021-12-15] MEDS: ZOLPIDEM 5 MG TABLET PO PRN (02:02)
[2021-12-15] MEDS: ACETAMINOPHEN 325 MG TABLET PO PRN ×2 (02:03→20:53)
[2021-12-15 04:00] VITALS: BP 148/53
[2021-12-15] MEDS: ALBUTEROL SULFATE 2.5 MG/ 0.5 ML NEBU NEB SCH ×4 (04:00→18:33)
[2021-12-15] MEDS: IPRATROPIUM BROMIDE 0.5 MG/2.5 ML NEBU NEB SCH ×4 (04:00→18:33)
[2021-12-15 06:17] LABS: HEMATOCRIT 31.7 % (31.2-41.9); MEAN CORPUSCULAR HEMOGLOBIN 27.1 uug (24.7-32.8); MEAN CORPUSCULAR VOLUME 80.6 fL (75.5-95.3); PLATELET COUNT (AUTO) 317 K/uL (179-408)
[2021-12-15 06:44] LABS: BILIRUBIN,TOTAL 0.4 mg/dL (0.2-1.0); CREATININE 1.2 mg/dL (0.6-1.3); POTASSIUM 4.4 mmol/L (3.5-5.1); TOTAL PROTEIN, SERUM 5.6 g/dL (6.4-8.2)
[2021-12-15] MEDS: ASPIRIN 81 MG TAB.CHEW PO SCH (08:46)
[2021-12-15] MEDS: CALCIUM CARB/VITAMIN D 500MG-200UNITS TABLET PO SCH ×2 (08:46→17:22)
[2021-12-15] MEDS: FUROSEMIDE 20 MG/2 ML VIAL IV SCH (08:46)
[2021-12-15] MEDS: methylPREDNISolone SOD SUCC 125 MG/2 ML VIAL IV SCH (08:47)
[2021-12-15] MEDS: CYANOCOBALAMIN 1,000 MCG TABLET PO SCH (08:47)
[2021-12-15] MEDS: AMLODIPINE 10 MG TABLET PO SCH (08:47)
[2021-12-15] MEDS: BRIMONIDINE 0.2% OPHT DROP 10 ML BOTTLE EACHEYE SCH ×2 (08:48→17:22)
[2021-12-15] MEDS: GLUCERNA SHAKE 237 ML CAN PO SCH ×2 (08:48→17:23)
--- NOTE | 2021-12-15 09:17 | NUR ---
PATIENT SEEN BY EXAMINED BY JULIAN GUTIÉRREZ WITH NEW ORDERS PATIENT IS GOING TO HAVE NEEDLE BIOPSY TODAY AND HAS TO BE NPO EXCEPT MEDS AND NOTED.
--- NOTE | 2021-12-15 09:24 | NUR ---
PER RADIOLOGY NEEDLE BIOPSY WILL NOT BE DONE TODAY MOST LIKELY TOMORROW TIME UNKNOWN AT THIS TIME JULIAN GUTIÉRREZ AWARE.
[2021-12-15] MEDS: LEVOFLOXACIN/D5W 250 MG in PREMIX 1 EA IV SCH (10:07)
[2021-12-15 11:31] VITALS: BP 122/55
[2021-12-15] MEDS: SOD FERRIC GLUC COMPLX/SUCROSE 125 MG in IV NORMAL SALINE 100 ML IV SCH (14:12)
--- NOTE | 2021-12-15 14:32 | NUR ---
CALLED PATIENTS DAUGHTER WHITNEY ESPAÑA RE SCHEDULED CT GUIDES BIOPSY OF PLEURAL NODULE AND SHE GAVE A TELEPHONE CONSCENT WITHNESSED PLACED IN THE CHART
[2021-12-15 16:00] VITALS: BP 121/53
[2021-12-15] MEDS: MONTELUKAST SODIUM 10 MG TABLET PO SCH (17:22)
[2021-12-15 20:00] VITALS: BP 142/56
[2021-12-15] MEDS: MELATONIN 3 MG TABLET PO SCH (20:53)
[2021-12-15] MEDS: ATORVASTATIN 10 MG TABLET PO SCH (20:53)
[2021-12-15] MEDS: FAMOTIDINE 20 MG TABLET PO SCH (20:53)
[2021-12-15] MEDS: methylPREDNISolone SOD SUCC 40 MG/ML VIAL IV SCH (20:54)
[2021-12-16] MEDS: ALBUTEROL SULFATE 2.5 MG/ 0.5 ML NEBU NEB SCH ×4 (00:34→19:05)
[2021-12-16] MEDS: IPRATROPIUM BROMIDE 0.5 MG/2.5 ML NEBU NEB SCH ×4 (00:35→19:05)
--- NOTE | 2021-12-16 06:12 | NUR ---
Pt stable Slept for short periods only. NPO after midnight. pending Lung biopsy today.
[2021-12-16] MEDS: GLUCERNA SHAKE 237 ML CAN PO SCH ×2 (08:00→16:51)
[2021-12-16] MEDS: CALCIUM CARB/VITAMIN D 500MG-200UNITS TABLET PO SCH ×2 (08:59→16:50)
[2021-12-16] MEDS: CYANOCOBALAMIN 1,000 MCG TABLET PO SCH (08:59)
[2021-12-16] MEDS: ASPIRIN 81 MG TAB.CHEW PO SCH (08:59)
[2021-12-16] MEDS: BRIMONIDINE 0.2% OPHT DROP 10 ML BOTTLE EACHEYE SCH ×2 (09:00→16:50)
[2021-12-16] MEDS: methylPREDNISolone SOD SUCC 40 MG/ML VIAL IV SCH ×2 (09:00→22:11)
[2021-12-16] MEDS: AMLODIPINE 10 MG TABLET PO SCH (09:01)
[2021-12-16] MEDS ORDERED: LIDOCAINE HCL 1% 20 ML VIAL ONE (10:09)
[2021-12-16] MEDS: LEVOFLOXACIN/D5W 250 MG in PREMIX 1 EA IV SCH (10:14)
--- NOTE | 2021-12-16 10:30 | NUR ---
SEEN BY DR RIOS WITH ORDER TO DISCHARGE PATIENT TODAY WHICH HE LATER CANCELLED PATIENT IS FOR CT GUIDED NEEDLE BIOPSY TODAY.SHE REMAINS NPO EXCEPT MEDS PER THE RECOVERY DEPT THE PROCEDURE IS SCHEDULED FOR 1500 TODAY
[2021-12-16] MEDS ORDERED: LEVO500T90 PO (10:39)
--- NOTE | 2021-12-16 11:07 | NUR ---
DR BOATENG WILL BE HERE @ [address] NEEDLE BIOPSY. RECOVERY WAS NOTIFIED AND RIOS CALLED DR BOATENG TO GET ORDERS, SEDATION ETC... WE ARE WAITING FOR PATHOLOGY TO CALL BACK AND CONFIRM, MAGDY CALLED THEM AROUND 10:00 AM I CALLED 3RD FLOOR TO SPEAK TO DEANNA, PATIENT'S NURSE, TO LET HER KNOW WHAT HAS BEEN COORDINATED AND TO PLEASE HAVE ALL CONSENTS READY AND THE PATIENT, HOWEVER NANCY INFORMED ME THAT SHE WAS BUSY AND SHE WOULD BE CALLING US BACK.
[2021-12-16] MEDS ORDERED: MIDAZOLAM HCL 10 MG/2 ML VIAL IV PRN (11:30)
[2021-12-16] MEDS ORDERED: FENTANYL CITRATE 250 MCG/5 ML AMPUL IV PRN (11:30)
[2021-12-16] MEDS ORDERED: NALOXONE 2 MG/2 ML SYRINGE IV PRN (11:30)
[2021-12-16 11:31] VITALS: BP 133/50
--- NOTE | 2021-12-16 12:30 | NUR ---
JULIAN FLOOR CLERK HERE TO SEE PATIENT WITH NO NEW ORDERS AT THIS TIME
--- NOTE | 2021-12-16 14:35 | NUR ---
PATIENT PICKED UP BY BED TO RADIOLOGY FOR CT GUIDED NEEDLE BIOPSY ORDERED.
[2021-12-16 16:00] VITALS: BP 138/45
--- NOTE | 2021-12-16 16:50 | NUR ---
RECEIVED PATIENT BACK TO HER ROOM BY BED S/P CT GUIDED NEEDLE BIOPSY SHE IS ALERT AND AWARE VERBALLY RESPONSIVE MOSTLY IN SPANIS DRESSING LEFT LATERAL SITE INTACT WITH NO BLEEDING AT THIS TIME DENIES DISCOMFORTS WILL CONTINUE TO OBSERVE.
[2021-12-16] MEDS: MONTELUKAST SODIUM 10 MG TABLET PO SCH (17:56)
--- NOTE | 2021-12-16 18:25 | NUR ---
RESTING TOLERATING HER DINNER WITH NO C/O AT THIS TIME WILL CONTINUE TO OBSERVE
[2021-12-16 20:00] VITALS: BP 137/47
[2021-12-16] MEDS: ATORVASTATIN 10 MG TABLET PO SCH (22:11)
[2021-12-16] MEDS: MELATONIN 3 MG TABLET PO SCH (22:12)
[2021-12-16] MEDS: FAMOTIDINE 20 MG TABLET PO SCH (22:13)
[2021-12-17] MEDS: IPRATROPIUM BROMIDE 0.5 MG/2.5 ML NEBU NEB SCH ×3 (00:30→12:53)
[2021-12-17] MEDS: ALBUTEROL SULFATE 2.5 MG/ 0.5 ML NEBU NEB SCH ×3 (00:30→12:53)
[2021-12-17 04:00] VITALS: BP 139/54
[2021-12-17 06:41] LABS: HEMATOCRIT 31.3 % (31.2-41.9); MEAN CORPUSCULAR VOLUME 80.3 fL (75.5-95.3); PLATELET COUNT (AUTO) 327 K/uL (179-408)
[2021-12-17 06:57] LABS: CREATININE 0.9 mg/dL (0.6-1.3); POTASSIUM 3.8 mmol/L (3.5-5.1)
[2021-12-17] MEDS: CALCIUM CARB/VITAMIN D 500MG-200UNITS TABLET PO SCH ×2 (08:23→16:01)
[2021-12-17] MEDS: ASPIRIN 81 MG TAB.CHEW PO SCH (08:24)
[2021-12-17] MEDS: methylPREDNISolone SOD SUCC 40 MG/ML VIAL IV SCH (08:24)
[2021-12-17] MEDS: CYANOCOBALAMIN 1,000 MCG TABLET PO SCH (08:24)
[2021-12-17] MEDS: BRIMONIDINE 0.2% OPHT DROP 10 ML BOTTLE EACHEYE SCH ×2 (08:24→16:02)
[2021-12-17] MEDS: GLUCERNA SHAKE 237 ML CAN PO SCH ×2 (08:24→16:02)
[2021-12-17] MEDS: AMLODIPINE 10 MG TABLET PO SCH (08:25)
[2021-12-17] MEDS: LEVOFLOXACIN/D5W 250 MG in PREMIX 1 EA IV SCH (09:08)
[2021-12-17 11:31] VITALS: BP 127/55
--- NOTE | 2021-12-17 15:53 | NUR ---
patient is discharging home today, paged dr beckford for clarification patient's procalcitonin result is high. waiting for call back, no acute distress noted, patient is verbally responsive, no sob, respirations are even nonlabored,skin warm and dry to touch.
[2021-12-17 16:00] VITALS: BP 144/54
[2021-12-17] MEDS: MONTELUKAST SODIUM 10 MG TABLET PO SCH (17:22)
--- NOTE | 2021-12-17 18:19 | NUR ---
per dr beckford patient is ok to discharge, patient picked up, discharged home, belongings sent home, ID removed, IV removed, transferred safely to the car.teaching was provided to daughter, verbalized understanding of it, patient is verbally responsive, no sob, respirations are even nonlabored,skin warm and dry to touch, daughter stated she has supplemental oxygen at home as needed available. instructions provided how to use oxygen at home, daughter verbalized understanding of it.
== END 2021-12-17 16:15 | disposition home or self-care (01) | DRG 280 ==
LOC: ER 14:14 → TELE3 20:07 → MEDSURG3 12-13 12:00
PROVIDERS: ADMIT Internal Medicine; ATTEND Internal Medicine
PROC: 0WJB3ZZ Inspection of Left Pleural Cavity, Percutaneous Approach (ICD-10-PCS; principal; 2021-12-16)
DX: I11.0 Hypertensive heart disease with heart failure (principal); I21.A1 Myocardial infarction type 2; I50.31 Acute diastolic (congestive) heart failure; J96.01 Acute respiratory failure with hypoxia; J44.1 Chronic obstructive pulmonary disease with (acute) exacerbation; D68.59 Other primary thrombophilia; N39.0 Urinary tract infection, site not specified; E22.2 Syndrome of inappropriate secretion of antidiuretic hormone; I50.32 Chronic diastolic (congestive) heart failure; D50.9 Iron deficiency anemia, unspecified; D63.8 Anemia in other chronic diseases classified elsewhere; Z74.09 Other reduced mobility; E27.8 Other specified disorders of adrenal gland; E78.5 Hyperlipidemia, unspecified; I25.2 Old myocardial infarction; Z20.822 Contact with and (suspected) exposure to COVID-19; E11.9 Type 2 diabetes mellitus without complications; K21.9 Gastro-esophageal reflux disease without esophagitis; E11.42 Type 2 diabetes mellitus with diabetic polyneuropathy; M19.90 Unspecified osteoarthritis, unspecified site; M81.0 Age-related osteoporosis without current pathological fracture; R91.8 Other nonspecific abnormal finding of lung field; F32.A Depression, unspecified; F03.90 Unspecified dementia, unspecified severity, without behavioral disturbance, psychotic disturbance, mood disturbance, and anxiety; D72.828 Other elevated white blood cell count; I35.0 Nonrheumatic aortic (valve) stenosis; T38.0X5A Adverse effect of glucocorticoids and synthetic analogues, initial encounter; Y92.89 Other specified places as the place of occurrence of the external cause
CPT/HCPCS: 36415; 70030-TC; 70450; 71045; 71250; 71270; 82378; 82746; 82784; 83550; 83605; 83735; 84100; 84155; 84165; 84443; 84484; 85025; 85610; 85730; 86300; 86334; 87040; 87077; 87086; 87400; 93005; 93307; 94640; A4663; A6209; A6213; G0378; J1940; J1956; J2250; J2405; J2916; J2920; J2930; J3010; J3490; J3590

== ENCOUNTER 2022-01-27 12:39 | Inpatient (IN) | payer MEDICARE, OTHER ==
[~2022-01-27] VITALS: Ht 144.8 cm; Wt 56.7 kg
[~2022-01-27 12:39] MED LIST changes: +ALBU8HFA4 INH; -ALEN70TA3 PO; +AMLO-212 PO; -AMLO10TA59 PO; -BUDE10.2 IH; -CICL15CR12 TP; +DICL100G26 TP; -ERGO500040 PO; +IPRA0.2S48 NEB; -IPRA3AMP22 IH; +LACT10SO3 PO; +LEVO500T90 PO; -METO5TAB2 PO; -MIRT-93 PO; -VOLTAREN GEL TOP
[2022-01-27] MEDS ORDERED: IV NORMAL SALINE 500 ML BAG IV ONE (13:15)
[2022-01-27] MEDS ORDERED: MORPHINE SULFATE 2 MG/1 ML DISP.SYRIN IV ONE (13:15)
[2022-01-27 14:12] LABS: HEMATOCRIT 34.3 % (31.2-41.9); MEAN CORPUSCULAR HEMOGLOBIN 27.3 uug (24.7-32.8); PLATELET COUNT (AUTO) 448 K/uL (179-408)
--- NOTE | 2022-01-27 14:23 | NUR ---
Patient had small brown mucoidal foul-smelling stool, kilo-anal care done. Stool specimen sent to lab. Addendum: 01/27/22 at 2212 by GRANT report was given to accepting nurse Maribel, patient remains stable for transport to unit.
[2022-01-27] MEDS ORDERED: MORPHINE SULFATE 2 MG/1 ML DISP.SYRIN ONE (14:59)
[2022-01-27] MEDS ORDERED: IPRA4AER IH (15:06)
--- NOTE | 2022-01-27 15:06 | NUR ---
1401pm : After multiple attempts to start peripheral IV line, a decision to call PICC nurse for midline catheter insertion. Nsg paint line supervisor Joana notified . PICC line nurse's ETA = about 1500, notified.
--- NOTE | 2022-01-27 15:06 | NUR ---
Note [email or web address] in ED - 01/27/22 at 1516 by [email or web address] 1401pm : After multiple attempts to start peipheral IV line, a decision to call PICC nurse for midline catheter insertion. [facility] computer analyst supervisor Joana notified . PICC line nurse ETA= about 1500, notified.
[2022-01-27] MEDS ORDERED: SWABABLE VALVE TRANSFER SET EA MC ONE (15:15)
[2022-01-27] MEDS ORDERED: IOHEXOL 300MG/ML 100 ML INFUS..BTL ONE (15:15)
[2022-01-27] MEDS ORDERED: IV NORMAL SALINE 250 ML IV ONE (15:15)
[2022-01-27 15:18] LABS: CARBON DIOXIDE 28 mmol/L (21-32); CHLORIDE 107 mmol/L (98-107); CREATININE 0.7 mg/dL (0.6-1.3); GLUCOSE 106 mg/dL (74-106); POTASSIUM 3.8 mmol/L (3.5-5.1); UREA NITROGEN, BLOOD 13 mg/dL (7-18)
[2022-01-27 15:27] LABS: ALANINE AMINOTRANSFERASE 14 U/L (14-59); ALKALINE PHOSPHATASE 102 U/L (50-136); ASPARTATE AMINOTRANSFERASE 12 U/L (15-37); BILIRUBIN,DIRECT 0.1 mg/dL (0.0-0.2); BILIRUBIN,TOTAL 0.2 mg/dL (0.2-1.0); LIPASE 137 U/L (73-393); TOTAL PROTEIN, SERUM 5.6 g/dL (6.4-8.2)
[2022-01-27] MEDS ORDERED: METRONIDAZOLE 500 MG/NS 100ML 500 MG in PREMIXED 1 EACH IV SCH (17:15)
[2022-01-27] MEDS ORDERED: CEFTRIAXONE 1 G in IV DEXTROSE 5% 50 ML IV SCH (17:15)
[2022-01-27] MEDS ORDERED: CEFTRIAXONE /D5W 50ML IVPB **ER PYXIS IV ONE (17:22)
[2022-01-27] MEDS ORDERED: METRONIDAZOLE 500 MG/NS 100ML 100 ML IV ONE (17:22)
[2022-01-27] MEDS ORDERED: IV NS 1000 ML 1,000 ML IV ONE (17:30)
--- NOTE | 2022-01-27 18:54 | NUR ---
Telemetry room 311 given but no assigned nurse @this time. Patient is resting comfortably on gurney with eyes closed, denies abdominal pains at the moment. Dr Jeevan Izquierdo accepted this patient.
--- NOTE | 2022-01-27 19:16 | NUR ---
inclusion intern Margot is late & not yet here in ER, pending accepting telemetry nurse from 3rd floor at this time. Nursing SBAR given to public service representative Adrian.
--- NOTE | 2022-01-27 20:50 | NUR ---
patient resting in bed, assisted into position of comfort, updated on plan f care, aware will be admotted to hospital. no s/s of any distress noted at this time. no voiced c/o pain or discomfort. IVF infusing as per order to RUE mid-line site. side rails up will continue to monitor.
--- NOTE | 2022-01-27 22:28 | NUR ---
Cleaned of moderate amount of loose stoola at this time.
--- NOTE | 2022-01-27 22:35 | NUR ---
Received patient on a gurney from ER to tele unit. Patient is AOx4. No distress noted at this time. On RA. Is SR on tele monitor, HR 76. Patient complained of generalized pain. Provided non-pharmacological interventions such as distraction and relaxation until further admission orders are to be followed up. IV sites are intact and patent. Safety and comfort measures are enforced.
[2022-01-27 22:55] VITALS: BP 167/67
--- NOTE | 2022-01-27 23:36 | NUR ---
Contacted Dr. Corral and is aware of patient's admission. Will follow up on any admission orders. Patient's needs are attended to and met at this time.
[2022-01-28] MEDS ORDERED: ZOLPIDEM 5 MG TABLET PO PRN (00:15)
[2022-01-28] MEDS ORDERED: REMEDY ESSENTIAL ZINC PASTE 113 GM TP PRN (00:15)
[2022-01-28] MEDS ORDERED: MAGNESIUM HYDROXIDE 30 ML LIQUID UDC PO PRN (00:15)
[2022-01-28] MEDS ORDERED: MECLIZINE HCL 25 MG TABLET PO PRN (00:15)
[2022-01-28] MEDS ORDERED: ONDANSETRON 4 MG/2 ML VIAL IV PRN (00:15)
[2022-01-28] MEDS: IPRATROPIUM BROMIDE 0.5 MG/2.5 ML NEBU NEB SCH ×4 (01:30→21:34)
[2022-01-28] MEDS: ALBUTEROL SULFATE 2.5 MG/3 ML NEBU INH SCH ×4 (01:30→21:34)
[2022-01-28] MEDS ORDERED: METRONIDAZOLE 500 MG/NS 100ML 100 ML IV ONE (05:45)
[2022-01-28] MEDS: METRONIDAZOLE 500 MG/NS 100ML 500 MG in PREMIXED 1 EACH IV SCH ×3 (06:09→21:37)
[2022-01-28] MEDS ORDERED: PANTOPRAZOLE SODIUM 40 MG TABLET.DR PO SCH (07:00)
--- NOTE | 2022-01-28 07:45 | NUR ---
Patient slept intermittently throughout the night. No distress noted at this time. Pain subsided through non-pharmacological approaches since admission time. IV antibiotics running at 200ml/hr. Is SR on tele monitor, HR 73.
[2022-01-28] MEDS ORDERED: OMEPRAZOLE PO SCH (09:00)
[2022-01-28] MEDS: CYANOCOBALAMIN 1,000 MCG TABLET PO SCH (09:31)
[2022-01-28] MEDS: CALCIUM CARB/VITAMIN D 500MG-200UNITS TABLET PO SCH ×2 (09:31→17:21)
[2022-01-28] MEDS: BRIMONIDINE 0.2% OPHT DROP 10 ML BOTTLE EACHEYE SCH ×2 (09:31→17:22)
[2022-01-28] MEDS: hydrALAZINE HCL 50 MG TABLET PO SCH ×2 (09:32→17:00)
[2022-01-28] MEDS: AMLODIPINE 5 MG TABLET PO SCH (09:33)
--- NOTE | 2022-01-28 10:40 | NUR ---
RECEIVED CALL FROM [facility] PATIENT IS POSITIVE FOR C DIFF CALLED DR DE OFFICE SPOKE WITH MERRY PALACIO MD NOT AVAILABLE AT THIS TIME BUT WILL RELAY THE THE MESSAGE FOR HIM TO CALL ME BACK.PATIENT PLACED ON ISOLATION PER PROTOCOL.
[2022-01-28 11:44] VITALS: BP 117/57
[2022-01-28] MEDS: ASPIRIN 81 MG TAB.CHEW PO SCH (13:22)
--- NOTE | 2022-01-28 14:00 | NUR ---
FOLLOW UP CALL TO DR LOBO RE PATIENT IS POSITIVE FOR C DIFF LEFT HIM A MESSAGE.
[2022-01-28 15:55] VITALS: BP 101/49
[2022-01-28] MEDS: PANTOPRAZOLE SODIUM 40 MG TABLET.DR PO SCH (17:21)
[2022-01-28] MEDS ORDERED: VANCOMYCIN FOR PO/GT/NG USE PO ONE (18:00)
--- NOTE | 2022-01-28 19:35 | NUR ---
Received patient laying comfortably in bed. No signs of distress or complaints of pain noted at this time. Is on room air. Is SR on tele monitor, HR 83. Communicated plan of care and patient verbally understood. Contact precautions are enforced per protocol. Safety and comfort measures enforced.
[2022-01-28 20:09] VITALS: BP 146/57
[2022-01-28] MEDS: ATORVASTATIN 10 MG TABLET PO SCH (20:36)
[2022-01-28] MEDS: REMEDY ESSENTIAL ZINC PASTE 113 GM TP SCH (20:36)
[2022-01-28] MEDS: FAMOTIDINE 20 MG TABLET PO SCH (20:36)
[2022-01-28] MEDS: MONTELUKAST SODIUM 10 MG TABLET PO SCH (20:36)
[2022-01-28] MEDS: MELATONIN 3 MG TABLET PO SCH (20:37)
[2022-01-28] MEDS ORDERED: CEFTRIAXONE 1 G in IV DEXTROSE 5% 50 ML IV SCH (21:00)
[2022-01-29] MEDS: IPRATROPIUM BROMIDE 0.5 MG/2.5 ML NEBU NEB SCH ×4 (00:23→21:23)
[2022-01-29] MEDS: ALBUTEROL SULFATE 2.5 MG/3 ML NEBU INH SCH ×4 (00:23→21:23)
[2022-01-29 00:36] VITALS: BP 118/55
[2022-01-29 04:32] VITALS: BP 147/67
[2022-01-29] MEDS: PANTOPRAZOLE SODIUM 40 MG TABLET.DR PO SCH ×2 (06:15→16:44)
[2022-01-29] MEDS: METRONIDAZOLE 500 MG/NS 100ML 500 MG in PREMIXED 1 EACH IV SCH ×3 (06:15→21:48)
--- NOTE | 2022-01-29 06:54 | NUR ---
Patient slept comfortably throughout the night. No complaints of pain or distress noted at this time. Is SR on tele monitor, HR 81. No adverse effects from antibiotics noted. BMx1 during the shift. Contact isolation was maintained. All needs were attended to and met. Safety and comfort measures maintained.
[2022-01-29 07:20] LABS: CREATININE 0.8 mg/dL (0.6-1.3); MAGNESIUM 1.6 mg/dL (1.8-2.4); PHOSPHOROUS 3.7 mg/dL (2.5-4.9); POTASSIUM 3.8 mmol/L (3.5-5.1)
--- NOTE | 2022-01-29 07:30 | NUR ---
RECEIVED PATIENT IN BED ASLEEP BUT EASILY AROUSABLE ON ROUNDS ALERT AND AWARE WHEN AWAKE NO S/S OF PAIN OR DISCOMFORTS AT THIS TIME REMAIN ON CONTACT ISOLATION FOR POSITIVE C DIFF IN HER STOOL CALL LIGHTS AND PERSONAL BELONGINGS ARE WITHIN EASY REACH MADE COMFORTABLE WILL CONTINUE TO OBSERVE.
[2022-01-29 08:05] LABS: HEMATOCRIT 28.9 % (31.2-41.9); MEAN CORPUSCULAR VOLUME 83.1 fL (75.5-95.3); PLATELET COUNT (AUTO) 404 K/uL (179-408)
[2022-01-29] MEDS: CALCIUM CARB/VITAMIN D 500MG-200UNITS TABLET PO SCH ×2 (09:00→16:44)
[2022-01-29] MEDS: ASPIRIN 81 MG TAB.CHEW PO SCH (09:00)
[2022-01-29] MEDS: AMLODIPINE 5 MG TABLET PO SCH (09:00)
[2022-01-29] MEDS: CYANOCOBALAMIN 1,000 MCG TABLET PO SCH (09:00)
--- NOTE | 2022-01-29 09:00 | NUR ---
DR JARVIS HERE SEEN PATIENT WITH NO NEW ORDERS AT THIS TIME
[2022-01-29] MEDS: VANCOMYCIN FOR PO/GT/NG USE PO SCH ×4 (09:01→21:40)
[2022-01-29] MEDS: REMEDY ESSENTIAL ZINC PASTE 113 GM TP SCH ×2 (09:02→21:40)
[2022-01-29] MEDS: BRIMONIDINE 0.2% OPHT DROP 10 ML BOTTLE EACHEYE SCH ×2 (09:02→16:45)
--- NOTE | 2022-01-29 09:24 | NUR ---
MAG LEVEL IS 1.6 WITH ORDER TO REPLACE WITH 2 GRAMS OF MAGNESSIUM IVPB AND NOTED.
[2022-01-29] MEDS: MAGNESIUM SULFATE/D5W 100 ML IV SCH ×2 (09:59→10:39)
[2022-01-29 11:46] VITALS: BP 145/63
[2022-01-29 15:48] VITALS: BP 147/64
--- NOTE | 2022-01-29 17:46 | NUR ---
REMAIN ON CONTACT ISOLATION FOR POSITIVE C DIFF PER GUIDE LINES AND TX IN PROGRESS ORDERED MAX ASSIST FOR ALL ADL INCONTINENT CARE NEEDED MADE COMFORTABLE WILL CONTINUE TO OBSERVE.
--- NOTE | 2022-01-29 19:40 | NUR ---
Received patient smiling and laying comfortably in bed. No signs of distress or complaints of pain noted at this time. ELIF and EVAN IV sites are intact and patent. Contact isolation enforced per protocol. Safety and comfort measures enforced.
[2022-01-29 20:13] VITALS: BP 126/51
[2022-01-29] MEDS: MELATONIN 3 MG TABLET PO SCH (20:56)
[2022-01-29] MEDS: ATORVASTATIN 10 MG TABLET PO SCH (20:56)
[2022-01-29] MEDS: FAMOTIDINE 20 MG TABLET PO SCH (20:56)
[2022-01-29] MEDS: MONTELUKAST SODIUM 10 MG TABLET PO SCH (20:56)
[2022-01-30] MEDS: IPRATROPIUM BROMIDE 0.5 MG/2.5 ML NEBU NEB SCH ×4 (00:16→20:26)
[2022-01-30] MEDS: ALBUTEROL SULFATE 2.5 MG/3 ML NEBU INH SCH ×4 (00:17→20:26)
[2022-01-30 04:10] VITALS: BP 147/48
[2022-01-30] MEDS: PANTOPRAZOLE SODIUM 40 MG TABLET.DR PO SCH ×2 (06:14→18:03)
[2022-01-30] MEDS: METRONIDAZOLE 500 MG/NS 100ML 500 MG in PREMIXED 1 EACH IV SCH ×3 (06:24→21:59)
--- NOTE | 2022-01-30 07:30 | NUR ---
No distress or complaints of pain noted at this time. Slept comfortably well. Continue plan of care. Safety and comfort measures maintained.
[2022-01-30 07:46] LABS: HEMATOCRIT 28.3 % (31.2-41.9); MEAN CORPUSCULAR HEMOGLOBIN 27.9 uug (24.7-32.8); PLATELET COUNT (AUTO) 416 K/uL (179-408)
[2022-01-30 08:02] LABS: BILIRUBIN,TOTAL 0.2 mg/dL (0.2-1.0); CREATININE 0.7 mg/dL (0.6-1.3); PHOSPHOROUS 3.5 mg/dL (2.5-4.9); TOTAL PROTEIN, SERUM 4.8 g/dL (6.4-8.2)
[2022-01-30] MEDS ORDERED: POTASSIUM CHLORIDE 20 MEQ POWDER PACKET GT ONE (08:15)
[2022-01-30] MEDS: CYANOCOBALAMIN 1,000 MCG TABLET PO SCH (08:29)
[2022-01-30] MEDS: CALCIUM CARB/VITAMIN D 500MG-200UNITS TABLET PO SCH ×2 (08:29→18:02)
[2022-01-30] MEDS: ASPIRIN 81 MG TAB.CHEW PO SCH (08:29)
[2022-01-30] MEDS: BRIMONIDINE 0.2% OPHT DROP 10 ML BOTTLE EACHEYE SCH ×2 (08:30→18:02)
[2022-01-30] MEDS: AMLODIPINE 5 MG TABLET PO SCH (08:37)
[2022-01-30] MEDS: POTASSIUM CHLORIDE 50 ML IV SCH ×4 (08:38→12:22)
[2022-01-30] MEDS: REMEDY ESSENTIAL ZINC PASTE 113 GM TP SCH ×2 (08:41→21:57)
[2022-01-30] MEDS: VANCOMYCIN FOR PO/GT/NG USE PO SCH ×4 (08:42→21:56)
[2022-01-30 11:45] VITALS: BP 149/66
[2022-01-30] MEDS ORDERED: ALBUTEROL SULFATE 1.25 MG/3 ML NEBU NEB PRN (12:00)
[2022-01-30] MEDS ORDERED: IPRATROPIUM BROMIDE 0.5 MG/2.5 ML NEBU NEB PRN (12:00)
[2022-01-30 16:37] VITALS: BP 145/69
--- NOTE | 2022-01-30 18:32 | NUR ---
0730-REC'D PATIENT IN BED WITH HOB ELEVATED. AWAKE, NO RESPIRATORY DISTRESS. PATIENT DENIES PAIN. ORAL FLUIDS OFFERED AND TAKEN WELL. ASPIRATION PRECAUTIONS OBSERVED. NO S/S OF CHOCKING NOTED. PATIENT ON ORAL VANCOMYCIN FOR C-DIFF & FLAGYL IV AT WITH NO A/R NOTED. IV TO EVAN 20" INFUSING WELL WITH SITE INTACT. PATIENT DENIES ANY GI DISCOMFORT, NO N/V NOTED. 0900-SCHEDULED/DUE MEDICATION ADMINISTERED ORDERED, NO A/R NOTED. ORAL FLUIDS OFFERED ANA. AND TAKEN WELL. ASPIRATION PRECAUTIONS STRICTLY OBSERVED. MEDICATION ADMINISTERED THROUGH OUT THE SHIFT/SCHEDULED ORDERED BY MD. CARE PROVIDED AT ROUTINE INTERVALS/PRN. REPOSITIONED Q2HRS TO PROMOTE COMFORT AND FACILITATE PRESSURE RELIEF. PATIENT WITH NO C/O PAIN DURING SHIFT. ALL NEEDS ANTICIPATED AND MET. C-DIFF ISOLATION PRECAUTIONS STRICTLY OBSERVED/CONTAINED, GOOD HANDWASHING TECHIQUE USED.
[2022-01-30] MEDS: FAMOTIDINE 20 MG TABLET PO SCH (21:45)
[2022-01-30] MEDS: MONTELUKAST SODIUM 10 MG TABLET PO SCH (21:45)
[2022-01-30] MEDS: ATORVASTATIN 10 MG TABLET PO SCH (21:45)
[2022-01-30] MEDS: MELATONIN 3 MG TABLET PO SCH (21:56)
[2022-01-31] MEDS: IPRATROPIUM BROMIDE 0.5 MG/2.5 ML NEBU NEB SCH ×4 (00:51→20:07)
[2022-01-31] MEDS: ALBUTEROL SULFATE 2.5 MG/3 ML NEBU INH SCH ×4 (00:51→20:07)
[2022-01-31] MEDS: METRONIDAZOLE 500 MG/NS 100ML 500 MG in PREMIXED 1 EACH IV SCH ×3 (05:02→21:13)
[2022-01-31] MEDS: PANTOPRAZOLE SODIUM 40 MG TABLET.DR PO SCH ×2 (06:46→16:38)
[2022-01-31 07:29] LABS: HEMATOCRIT 31.2 % (31.2-41.9); MEAN CORPUSCULAR HEMOGLOBIN 26.9 uug (24.7-32.8); MEAN CORPUSCULAR VOLUME 82.3 fL (75.5-95.3); PLATELET COUNT (AUTO) 464 K/uL (179-408)
[2022-01-31 08:02] LABS: BILIRUBIN,TOTAL 0.3 mg/dL (0.2-1.0); CREATININE 0.6 mg/dL (0.6-1.3); MAGNESIUM 1.9 mg/dL (1.8-2.4); PHOSPHOROUS 3.6 mg/dL (2.5-4.9); POTASSIUM 4.7 mmol/L (3.5-5.1); TOTAL PROTEIN, SERUM 5.3 g/dL (6.4-8.2)
[2022-01-31] MEDS: CALCIUM CARB/VITAMIN D 500MG-200UNITS TABLET PO SCH ×2 (08:41→16:38)
[2022-01-31] MEDS: ASPIRIN 81 MG TAB.CHEW PO SCH (08:41)
[2022-01-31] MEDS: BRIMONIDINE 0.2% OPHT DROP 10 ML BOTTLE EACHEYE SCH ×2 (08:42→16:39)
[2022-01-31] MEDS: CYANOCOBALAMIN 1,000 MCG TABLET PO SCH (08:42)
[2022-01-31] MEDS: VANCOMYCIN FOR PO/GT/NG USE PO SCH ×4 (08:44→20:50)
[2022-01-31] MEDS: AMLODIPINE 5 MG TABLET PO SCH (08:46)
[2022-01-31] MEDS: REMEDY ESSENTIAL ZINC PASTE 113 GM TP SCH ×2 (09:00→20:48)
[2022-01-31 11:55] VITALS: BP 153/70
[2022-01-31 15:53] VITALS: BP 129/58
--- NOTE | 2022-01-31 16:04 | NUR ---
PATIENT CONTINUES ON IV AND ORAL ATB THERAPY FOR C-DIFF. NO ASE NOTED. PATIENT ABLE TO TAKE FLUIDS OFFERED WITH NO SWALLOWING PROBLEMS NOTED, PATIENT DENIES GI DISCOMFORT, NO N/V NOTED, ANA. MEALS WELL. PATIENT REMAINED FREE OF PAIN THROUGH OUT THE SHIFT. ASSISTED WITH ADLS AND NEEDED. PATIENT CONTINUES ON ISOLATION FOR C-DIFF. NO EPISODES OF DIARRHEA DURING SHIFT TODAY. CARE PROVIDED AT ROUTINE INTERVALS/PRN. ALL NEEDS ANTICIPATED AND MET. CALL LIGHT AT REACH, ALL SAFETY MEASURE IN PLACE. ROUTINE ROUNDS AND FREQUENT VISUAL CHECKS DONE.
[2022-01-31 20:00] VITALS: BP 140/65
[2022-01-31] MEDS: FAMOTIDINE 20 MG TABLET PO SCH (20:48)
[2022-01-31] MEDS: MELATONIN 3 MG TABLET PO SCH (20:48)
[2022-01-31] MEDS: MONTELUKAST SODIUM 10 MG TABLET PO SCH (20:48)
[2022-01-31] MEDS: ATORVASTATIN 10 MG TABLET PO SCH (20:48)
[2022-02-01] MEDS: IPRATROPIUM BROMIDE 0.5 MG/2.5 ML NEBU NEB SCH ×4 (01:21→19:32)
[2022-02-01] MEDS: ALBUTEROL SULFATE 2.5 MG/3 ML NEBU INH SCH ×4 (01:21→19:32)
[2022-02-01 05:00] VITALS: BP 147/52
[2022-02-01] MEDS: METRONIDAZOLE 500 MG/NS 100ML 500 MG in PREMIXED 1 EACH IV SCH ×3 (05:19→21:41)
[2022-02-01] MEDS: PANTOPRAZOLE SODIUM 40 MG TABLET.DR PO SCH ×2 (06:20→17:04)
[2022-02-01 07:31] LABS: HEMATOCRIT 33.2 % (31.2-41.9); MEAN CORPUSCULAR HEMOGLOBIN 27.2 uug (24.7-32.8); MEAN CORPUSCULAR VOLUME 81.9 fL (75.5-95.3); PLATELET COUNT (AUTO) 294 K/uL (179-408)
[2022-02-01 07:53] LABS: ALANINE AMINOTRANSFERASE 15 U/L (14-59); ALKALINE PHOSPHATASE 107 U/L (50-136); ASPARTATE AMINOTRANSFERASE 12 U/L (15-37); BILIRUBIN,TOTAL 0.3 mg/dL (0.2-1.0); CARBON DIOXIDE 27 mmol/L (21-32); CHLORIDE 104 mmol/L (98-107); CREATININE 0.5 mg/dL (0.6-1.3); GLUCOSE 114 mg/dL (74-106); MAGNESIUM 1.7 mg/dL (1.8-2.4); PHOSPHOROUS 3.8 mg/dL (2.5-4.9); POTASSIUM 3.9 mmol/L (3.5-5.1); TOTAL PROTEIN, SERUM 5.4 g/dL (6.4-8.2); UREA NITROGEN, BLOOD 4 mg/dL (7-18)
[2022-02-01] MEDS: CALCIUM CARB/VITAMIN D 500MG-200UNITS TABLET PO SCH ×2 (09:49→17:04)
[2022-02-01] MEDS: ASPIRIN 81 MG TAB.CHEW PO SCH (09:49)
[2022-02-01] MEDS: CYANOCOBALAMIN 1,000 MCG TABLET PO SCH (09:49)
[2022-02-01] MEDS: AMLODIPINE 5 MG TABLET PO SCH (09:50)
[2022-02-01] MEDS: REMEDY ESSENTIAL ZINC PASTE 113 GM TP SCH ×2 (09:51→21:43)
[2022-02-01] MEDS: BRIMONIDINE 0.2% OPHT DROP 10 ML BOTTLE EACHEYE SCH ×2 (09:51→17:04)
[2022-02-01] MEDS: MAGNESIUM SULFATE/D5W 100 ML IV SCH ×2 (09:56→10:59)
[2022-02-01] MEDS: VANCOMYCIN FOR PO/GT/NG USE PO SCH ×4 (09:56→21:42)
--- NOTE | 2022-02-01 10:30 | NUR ---
DR COLLADO HERE AND SEEN PATIENT WITH NO NEW ORDERS AT THIS TIME PATIENT IS ALERT AND AWARE ABLE TO MAKE SIMPLE NEEDS KNOWN BUT REQUIRES MAX ASSIST FOR ALL ADL REMAIN ON CONTACT ISOLATION AND PRECAUTION ORDERED.IV ATB IN PROGRESS WITH NO ADVERSE OR ALLERGIC REACTIONS AT THIS TIME MADE COMFORTABLE WILL CONTINUER TO OBSWERVE.
[2022-02-01 12:00] VITALS: BP 140/54
[2022-02-01 18:00] VITALS: BP 133/53
--- NOTE | 2022-02-01 18:00 | NUR ---
MAG LEVEL IS 1.7 WITH NEW ORDERS TO REPLACE WITH 2 GRAMS MAGNESIUM ORDERED GIVEN AND TOLERATED WELL.
[2022-02-01] MEDS: ACETAMINOPHEN 325 MG TABLET PO PRN (21:42)
[2022-02-01] MEDS: ATORVASTATIN 10 MG TABLET PO SCH (21:43)
[2022-02-01] MEDS: MONTELUKAST SODIUM 10 MG TABLET PO SCH (21:43)
[2022-02-01] MEDS: MELATONIN 3 MG TABLET PO SCH (21:43)
[2022-02-01] MEDS: FAMOTIDINE 20 MG TABLET PO SCH (21:43)
[2022-02-01 23:26] VITALS: BP 142/71
[2022-02-02] MEDS: IPRATROPIUM BROMIDE 0.5 MG/2.5 ML NEBU NEB SCH ×4 (01:21→20:09)
[2022-02-02] MEDS: ALBUTEROL SULFATE 2.5 MG/3 ML NEBU INH SCH ×4 (01:21→20:09)
[2022-02-02 01:31] VITALS: BP 135/70
[2022-02-02 04:00] VITALS: BP 132/14
[2022-02-02] MEDS: METRONIDAZOLE 500 MG/NS 100ML 500 MG in PREMIXED 1 EACH IV SCH ×3 (05:50→21:43)
[2022-02-02] MEDS: PANTOPRAZOLE SODIUM 40 MG TABLET.DR PO SCH ×2 (05:50→16:24)
[2022-02-02 06:26] LABS: HEMATOCRIT 30.1 % (31.2-41.9); MEAN CORPUSCULAR HEMOGLOBIN 27.9 uug (24.7-32.8); PLATELET COUNT (AUTO) 441 K/uL (179-408)
[2022-02-02 07:58] LABS: BILIRUBIN,TOTAL 0.4 mg/dL (0.2-1.0); CREATININE 0.7 mg/dL (0.6-1.3); PHOSPHOROUS 3.7 mg/dL (2.5-4.9); POTASSIUM 3.8 mmol/L (3.5-5.1)
[2022-02-02] MEDS: CALCIUM CARB/VITAMIN D 500MG-200UNITS TABLET PO SCH ×2 (08:42→16:24)
[2022-02-02] MEDS: ASPIRIN 81 MG TAB.CHEW PO SCH (08:42)
[2022-02-02] MEDS: CYANOCOBALAMIN 1,000 MCG TABLET PO SCH (08:42)
[2022-02-02] MEDS: REMEDY ESSENTIAL ZINC PASTE 113 GM TP SCH ×2 (08:44→21:20)
[2022-02-02] MEDS: VANCOMYCIN FOR PO/GT/NG USE PO SCH ×4 (08:44→21:20)
[2022-02-02] MEDS: BRIMONIDINE 0.2% OPHT DROP 10 ML BOTTLE EACHEYE SCH ×2 (08:44→16:23)
[2022-02-02] MEDS: AMLODIPINE 5 MG TABLET PO SCH (08:56)
[2022-02-02 11:37] VITALS: BP 129/55
[2022-02-02] MEDS: ACETAMINOPHEN 325 MG TABLET PO PRN (13:00)
[2022-02-02 15:40] VITALS: BP 144/65
[2022-02-02 20:00] VITALS: BP 151/65
[2022-02-02] MEDS: MELATONIN 3 MG TABLET PO SCH (21:20)
[2022-02-02] MEDS: MONTELUKAST SODIUM 10 MG TABLET PO SCH (21:20)
[2022-02-02] MEDS: FAMOTIDINE 20 MG TABLET PO SCH (21:20)
[2022-02-02] MEDS: ATORVASTATIN 10 MG TABLET PO SCH (21:20)
[2022-02-03] MEDS: IPRATROPIUM BROMIDE 0.5 MG/2.5 ML NEBU NEB SCH ×4 (01:43→19:50)
[2022-02-03] MEDS: ALBUTEROL SULFATE 2.5 MG/3 ML NEBU INH SCH ×4 (01:43→19:50)
[2022-02-03 04:00] VITALS: BP 154/70
[2022-02-03] MEDS: METRONIDAZOLE 500 MG/NS 100ML 500 MG in PREMIXED 1 EACH IV SCH ×3 (06:08→21:21)
[2022-02-03] MEDS: PANTOPRAZOLE SODIUM 40 MG TABLET.DR PO SCH ×2 (06:09→16:13)
[2022-02-03] MEDS: ASPIRIN 81 MG TAB.CHEW PO SCH (08:56)
[2022-02-03] MEDS: VANCOMYCIN FOR PO/GT/NG USE PO SCH ×4 (08:57→20:50)
[2022-02-03] MEDS: CYANOCOBALAMIN 1,000 MCG TABLET PO SCH (08:57)
[2022-02-03] MEDS: REMEDY ESSENTIAL ZINC PASTE 113 GM TP SCH ×2 (08:57→20:50)
[2022-02-03] MEDS: CALCIUM CARB/VITAMIN D 500MG-200UNITS TABLET PO SCH ×2 (08:57→16:13)
[2022-02-03] MEDS: BRIMONIDINE 0.2% OPHT DROP 10 ML BOTTLE EACHEYE SCH ×2 (08:58→16:15)
--- NOTE | 2022-02-03 09:00 | NUR ---
DR Ramirez here to see pt. No diarrhea noted. New orders received and carried out.
[2022-02-03] MEDS: AMLODIPINE 5 MG TABLET PO SCH (09:03)
[2022-02-03 12:06] VITALS: BP 128/69
[2022-02-03 17:14] VITALS: BP 126/59
--- NOTE | 2022-02-03 17:24 | NUR ---
Pt is in no acute distress. Pt has good appetite. Routine HHN tx effective pt less sob.
--- NOTE | 2022-02-03 19:30 | NUR ---
Received patient lying in bed. AAOx2. [place]an speaking only. In no acute distress. Denies any pain or SOB. Midline on left upper arm intact and patent. Contact precaution observed. Safety measure initiated and call light within reached.
[2022-02-03 20:00] VITALS: BP 167/76
[2022-02-03] MEDS: MONTELUKAST SODIUM 10 MG TABLET PO SCH (20:49)
[2022-02-03] MEDS: MELATONIN 3 MG TABLET PO SCH (20:49)
[2022-02-03] MEDS: FAMOTIDINE 20 MG TABLET PO SCH (20:49)
[2022-02-03] MEDS: ATORVASTATIN 10 MG TABLET PO SCH (20:49)
[2022-02-03] MEDS: ACETAMINOPHEN 325 MG TABLET PO PRN (21:42)
[2022-02-04] MEDS: ALBUTEROL SULFATE 2.5 MG/3 ML NEBU INH SCH ×3 (00:37→14:17)
[2022-02-04] MEDS: IPRATROPIUM BROMIDE 0.5 MG/2.5 ML NEBU NEB SCH ×3 (00:37→14:17)
[2022-02-04 04:00] VITALS: BP 165/75
[2022-02-04 04:30] VITALS: BP 152/61
--- NOTE | 2022-02-04 05:18 | NUR ---
Slept well during the night. In no apparent distress. No adverse reaction noted from IV antibiotic. Midline on left upper arm intact and patent. Contact precaution maintained. Needs attended to and met. Safety measure maintained and call light within reached.
[2022-02-04] MEDS: PANTOPRAZOLE SODIUM 40 MG TABLET.DR PO SCH (06:11)
[2022-02-04] MEDS: METRONIDAZOLE 500 MG/NS 100ML 500 MG in PREMIXED 1 EACH IV SCH (06:11)
[2022-02-04] MEDS: BRIMONIDINE 0.2% OPHT DROP 10 ML BOTTLE EACHEYE SCH (10:09)
[2022-02-04] MEDS: VANCOMYCIN FOR PO/GT/NG USE PO SCH ×2 (10:09→10:15)
[2022-02-04] MEDS: CALCIUM CARB/VITAMIN D 500MG-200UNITS TABLET PO SCH (10:10)
[2022-02-04] MEDS: ASPIRIN 81 MG TAB.CHEW PO SCH (10:10)
[2022-02-04] MEDS: CYANOCOBALAMIN 1,000 MCG TABLET PO SCH (10:10)
[2022-02-04] MEDS: AMLODIPINE 5 MG TABLET PO SCH (10:11)
[2022-02-04] MEDS: REMEDY ESSENTIAL ZINC PASTE 113 GM TP SCH (10:12)
[2022-02-04 11:46] VITALS: BP 132/66
--- NOTE | 2022-02-04 12:51 | NUR ---
Pt. in the room comfortably had her breathing treatment in am. Had her am meds. Vitals stable. Pt. has orders to be discharge to a sniff facility. Report was given to nurse Jennifer who is taken over this pt. at 1105 am. She is aware of pt. situation, treatments, and discharge instructions.
--- NOTE | 2022-02-04 15:25 | NUR ---
Patient is discharged to [facility]. Peripheral IV removed removed, pressure applied to site. All personal belongings is taken with patient. Left unit via ambulance in no distress vital signs 98.3, 89, 20, B/P 140/70 O2sat 97% room air. Nurse to nurse report to Leonila.
== END 2022-02-04 15:25 | DRG 371 ==
LOC: ER 12:39 → TELE3 18:54 → MEDSURG3 01-29 08:58
PROVIDERS: ADMIT Internal Medicine; ATTEND Internal Medicine
PROC: 05H533Z Insertion of Infusion Device into Right Subclavian Vein, Percutaneous Approach (ICD-10-PCS; principal; 2022-01-27)
PROC: B546ZZA Ultrasonography of Right Subclavian Vein, Guidance (ICD-10-PCS; 2022-01-27)
DX: A04.72 Enterocolitis due to Clostridium difficile, not specified as recurrent (principal); I21.4 Non-ST elevation (NSTEMI) myocardial infarction; I50.32 Chronic diastolic (congestive) heart failure; I13.0 Hypertensive heart and chronic kidney disease with heart failure and stage 1 through stage 4 chronic kidney disease, or unspecified chronic kidney disease; J96.10 Chronic respiratory failure, unspecified whether with hypoxia or hypercapnia; I11.0 Hypertensive heart disease with heart failure; D64.9 Anemia, unspecified; E78.5 Hyperlipidemia, unspecified; E83.42 Hypomagnesemia; E87.6 Hypokalemia; I25.10 Atherosclerotic heart disease of native coronary artery without angina pectoris; Z20.822 Contact with and (suspected) exposure to COVID-19; N18.2 Chronic kidney disease, stage 2 (mild); Z88.0 Allergy status to penicillin; I35.0 Nonrheumatic aortic (valve) stenosis; E11.22 Type 2 diabetes mellitus with diabetic chronic kidney disease; J45.909 Unspecified asthma, uncomplicated; J44.9 Chronic obstructive pulmonary disease, unspecified; I25.2 Old myocardial infarction; Z98.890 Other specified postprocedural states; M19.90 Unspecified osteoarthritis, unspecified site; F03.90 Unspecified dementia, unspecified severity, without behavioral disturbance, psychotic disturbance, mood disturbance, and anxiety; K21.9 Gastro-esophageal reflux disease without esophagitis
CPT/HCPCS: 36415; 71045; 83605; 83690; 83735; 84100; 84484; 85025; 85730; 87177; 89055; 93005; 94640; 94664; A6213; G0378; J0696; J2270; J3370; J3475; J3480; J3490; J3590; J7040; Q9967